=== PATIENT | male | born 1955 | race Caucasian/White ===

== ENCOUNTER → 2018-10-20 10:58 | Outpatient (CLI) | payer MEDICARE, MEDICAID, SELFPAY ==
[2018-10-19 09:56] VITALS: BMI 22.8
== END ==
PROVIDERS: Family Provider Family Medicine; PCP Family Medicine; Referring Provider Internal Medicine Cardiovascular Disease; Visit Provider Internal Medicine Cardiovascular Disease
DX: R03.0 Elevated blood-pressure reading, without diagnosis of hypertension (principal)
CPT/HCPCS: 93788

== ENCOUNTER 2019-01-09 10:55 | Day surgery (SDC) | payer MEDICARE, MEDICAID, SELFPAY ==
[2018-10-19 09:56] VITALS: BMI 22.8
--- NOTE | 2019-01-06 18:43 | HP.PCM_ITS ---
History and Physical Date of Admission: 01/09/19 HISTORY AND PHYSICAL ? Yaritza Henderson 1955 ? REFERRING PHYSICIAN: ??Fredrick Aiken MD ? CHIEF COMPLAINT: ??Clinical Update ? HPI: The patient is a 63 year old male referred for endoscopy.??Patient was previously evaluated on 09/05/18. ?Per my H&P from that date: ? The patient is a 62 year old male referred for endoscopy. ?Yaritza notes no colon complaints. Patient denies any change in bowel habits, weight changes, blood in stools, black tarry stools or abdominal pain.??Denies?family history of colon issues. The patient notes no upper GI complaints. ?Yaritza has not?undergone prior endoscopy. ? ? Patient's past medical history is significant for alcohol abuse-notes he has consumed a 12-pack of beer daily for many years. ?He us a former tobacco user, quit at age 19. ?He has a history of significant hypertension but notes this has been better controlled over the last couple of months, checks this twice a day at home. ?BP was significantly elevated on presentation today which he states is unusual, notes he did take his medication as instructed this morning. ? On chart review, it is noted that patient had an abnormal EKG in January 2018- showed possible left atrial enlargement, and provider note from 02/07/18 also mentions a septal infarct though only the atrial enlargement noted on final EKG report: ? 02/10/2018 ?4:31 PM - Ce, [facility]-In Scanning (Onbase) ? ? ? Results ? NAME : YARITZA HENDERSON PID : [id number] : 1955 Gender : Male Race : ORD : [id number] ?? Procedure Date : Feb 07 2018 14:17:57 Edit Date : Feb 10 2018 16:11:32 ?? Diagnosis:NORMAL SINUS RHYTHM POSSIBLE LEFT ATRIAL ENLARGEMENT ABNORMAL ECG Confirmed by KAI FARIAS D.O. ([id number]) on 02/10/2018 4:11:26 PM ?? Ventricular Rate : 77 ?BPM Atrial Rate : 77 ?BPM P-R Interval : 176 ?ms QRS Duration : 98 ?ms Q-T Interval : 412 ?ms QTC Calculation(Bezet) : 466 ?ms P [place] : 61 ?degrees R [place] : 7 ?degrees T [place] : 62 ?degrees ?? Test Reason : ?? Location : 185 : WO ? Overread By : KAI FARIAS D.O. Edited By : KAI FARIAS D.O. Referred By : SONIA GUIDO Acquired by : [facility], ? The patient was referred to cardiology and had appointment scheduled for 02/17/18 which appears to have been cancelled. 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 ?He was also instructed to see nephrology for proteinuria and was to have a renal ultrasound completed. ?Patient does not believe he has seen a wall taper. ? He denies any chest pain, shortness of breath or recent hospitalizations. ?Denies any problems with sedation in the past. ? Patient has since been evaluated by cardiology. ?Note from Dr. Us from 10/19/18 is reviewed, per Dr. Us no contraindication to colonoscopy planned for December ? Patient presents today to update H&P for endoscopy scheduled 01/09/19.??The patient denies any significant change to his overall health since his last visit. ?His past medical history, past surgical history, medications and allergies are up to date as of this visit. ? ? PAST?MEDICAL?HISTORY PAST MEDICAL HISTORY Diagnosis Date ? Alcohol abuse 04/25/2018 ? Ex-smoker 04/25/2018 ? Started at 7 yo, ?1/2-1 PPD and quit at age 19 ? History of right shoulder fracture ? ? Hypertension, essential 02/07/2018 ? Tibia/fibula fracture ? ? ? PAST?SURGICAL?HISTORY History reviewed. No pertinent surgical history. ? ? CURRENT?MEDICATIONS ? Current Outpatient Medications: lisinopril (ZESTRIL, PRINIVIL) 40 mg tablet Take 1 tablet by mouth twice daily. thiamine (VITAMIN B1) 100 mg tablet Take 1 tablet by mouth once daily. triamterene-hydrochlorothiazide (MAXZIDE) 75-50 mg per tablet Take 1 tablet by mouth once daily. amLODIPine (NORVASC) 2.5 mg tablet Take 1 tablet by mouth once daily. Blood Pressure Monitor kit Take blood pressure daily ?DX: hypertension COMPOUNDED PRESCRIPTION Take blood pressure daily and write it down loratadine (CLARITIN) 10 mg tablet Take 1 tablet by mouth once daily. (Patient not taking: Reported on 12/29/2018 ) ? No current facility-administered medications for this visit.? ? ALLERGIES:?Patient has no known allergies. ? PERSONAL HISTORY:? SOCIAL?HISTORY Social History ??Socioeconomic History ?Marital status: Single ?Spouse name: Not on file ?Number of children: Not on file ?Years of education: Not on file ?Highest education level: Not on file ??Occupational History ?Not on file ??Social Needs ?Financial resource strain: Not on file ?Food insecurity: ?Worry: Not on file ?Inability: Not on file ?Transportation needs: ?Medical: Not on file ?Non-medical: Not on file ??Tobacco Use ?Smoking status: Former Smoker ?Smokeless tobacco: Never Used ?Tobacco comment: quit when he was 19 ??Substance and Sexual Activity ?Alcohol use: Yes ?Alcohol/week: 105.0 standard drinks ?Types: 42 Cans of Beer (12oz) per week ?Comment: 6 pack a day ?Drug use: No ?Sexual activity: Not on file ??Lifestyle ?Physical activity: ?Days per week: Not on file ?Minutes per session: Not on file ?Stress: Not on file ??Relationships ?Social connections: ?Talks on phone: Not on file ?Gets together: Not on file ?Attends advent service: Not on file ?Active member of club or organization: Not on file ?Attends meetings of clubs or organizations: Not on file ?Relationship status: Not on file ?Intimate partner violence: ?Fear of current or ex partner: Not on file ?Emotionally abused: Not on file ?Physically abused: Not on file ?Forced sexual activity: Not on file ??Other Topics ?Concerns: ?Not on file ??Social History Narrative ?Not on file ? FAMILY HISTORY:? FAMILY?HISTORY FAMILY HISTORY Problem Relation Age of Onset ? No Known Problems Mother ? when patient was 8 from accident ? No Known Problems Father ? ? No Known Problems Sister ?unsure of hx ? No Known Problems Brother ?doens't know hx ? No Known Problems Maternal Grandmother ?doesn't know hx ? No Known Problems Maternal Grandfather ?doesn't know hx ? No Known Problems Paternal Grandmother ?doesn't know hx ? No Known Problems Paternal Grandfather ?doesn't know hx ? Alzheimer's Disease No Family History ? ? Colon Cancer No Family History ? ? Prostate Cancer No Family History ? ? Coronary Artery Disease No Family History ? ? Diabetes No Family History ? ? Hypertension No Family History ? ? Hyperlipidemia No Family History ? ? Kidney Disease No Family History ? ? Seizures No Family History ? ? Stroke No Family History ? ? Thyroid No Family History ? ? REVIEW OF SYMPTOMS: ??The review of systems data was entered by the nurse and reviewed by me ? Nursing Notes: Gina Nettles RN ?12/29/2018 10:18 AM ?Signed REVIEW OF SYSTEMS: ?General:???The patient denies fatigue, denies weight loss, denies weight gain, denies feeling hot, and denies feelings of cold. ?Eyes: ?The patient denies glaucoma, denies eye injury/surgery, wears glasses or contacts. ?Ear/Nose/Throat: ?The patient notes allergies, denies hayfever, denies ear infections, and denies bloody noses. ?Cardiovascular: ?The patient denies chest pain, denies heart disease, notes high blood pressure,denies cardiac stent, denies prior heart attack, denies irregular heart beat, denies high cholesterol, ?denies poor circulation, denies heart failure, other cardiac issues, denies claudication, denies cold feet, denies peripheral arterial stent. ?Respiratory: ?The patient denies tuberculosis, denies pneumonia, denies frequent cough, denies pulmonary embolism, denies shortness of breath, and denies coughing up blood. ?Gastrointestinal: ?The patient denies difficulty swallowing, denies acid reflux, denies ulcers, denies vomiting, denies jaundice/hepatitis, denies gallbladder problems, denies black or tarry stools, denies hemorrhoids, denies bleeding from rectum, denies diverticulitis, denies constipation, denies diarrhea, denies loss of stool control, and denies hernias. ?Kidney/Bladder: ?The patient denies kidney stones, denies urine infections, and denies bloody urine. ?Skin: ?The patient denies a history of skin cancer, denies bleeding/changing moles, and denies a history of skin rash. ?Neurologic: ?The patient denies a history of epilepsy/convulsions, denies headaches, denies head/spinal injuries, and denies stroke/TIA. ?Psychiatric: ?The patient denies psychiatric medications, denies depre ssion, and denies voices, denies substance abuse. ?Endocrine: ?The patient denies thyroid disorders, denies diabetes, and denies hormonal problems. ?Hematologic: ?The patient denies a history of bruising, denies bleeding, and denies anemia, denies blood clots. ?Infections: ?The patient notes a history of measles and mumps, denies rheumatic fever, and denies sexually transmitted diseases. ?Musculoskeletal: ?The patient denies back pain/injury, denies back problems, denies sciatica, denies knee/foot trouble, denies arthritis, or denies gout. ? ? When was patient's last Mammogram screening? N/A ? ?Last Colonoscopy: ?never ? Gina Nettles RN I have confirmed and edited as necessary, the PFSH and ROS obtained by others. ? PHYSICAL EXAMINATION: ? General: ?The patient is 63 year old male, well nourished, well hydrated in no acute distress. ?The patient is oriented to time, place, and person. ? VITALS:?Blood pressure 150/80, pulse 82, temperature 36.7 ?C (98.1 ?F), temperature source Temporal Artery, height 185.4 cm (6' 1), weight 77.7 kg (171 lb 6.4 oz), SpO2 98 %.?Body mass index is 22.61 kg/m?.? ? HEENT: ?Normal cephalic, ataumatic, pupils are equally round, sclera are an icteric, mucous membranes are moist, oropharynx is clear. ?Neck has no masses, asymmetry or lymphadenopathy. ? ? Respiratory: ?Clear to auscultation and percussion. ?Normal respiratory excursion and pattern. ? Cardiac: ?Examination is regular rate and rhythm. ?Normal S1/S2 ? Abdominal exam: ?Soft, nontender, ?with no palpable masses. ?No hepatosplenomegaly. ?No palpable hernias. ? Extremities: ?no clubbing, cyanosis or edema. ?No adenopathy. ? LABORATORY VALUES: As Noted ? RADIOLOGIC STUDIES: ?As Noted ? ? Assessment ? IMPRESSION:?encounter for screening colonoscopy, history of alcohol abuse- recommend Monitored Anesthetic Care ? PLAN: ?I have reviewed my findings with the surgeon. ?Proceed with lower endoscopy with MAC as scheduled. ??We discussed the risks and benefits of the planned endoscopy. ?I have informed the patient that complications can occur including failure to complete the endoscopy and perforation. ?The patient had the opportunity to ask questions concerning the planned endoscopy. ?My staff has also explained the procedure to the patient in understandable terms and has given the patient printed material concerning the procedure. ?The patient freely consents to surgery. ? I plan to use?Golytely?bowel preparation ? We will plan for Monitored Anesthetic Care. ? ? Diagnoses:?(Z12.11) Encounter for screening for malignant neoplasm of colon ?(pr imary encounter diagnosis) (F10.11) History of alcohol abuse (I10) Hypertension, essential ? ? Isabel Lindsey PA-C
[2019-01-09 11:14] VITALS: BP 158/91; PULSE 72; RESP 14; TEMP 36.8; O2SAT 100; BMI 21.9
--- NOTE | 2019-01-09 13:33 | OP.ENDO_ITS ---
Patient Name: Faraz Henderson Procedure Date: 01/09/2019 1:05 PM Date of : 1955 Age: 63 Procedure: Colonoscopy Indications: Screening for colorectal malignant neoplasm Providers: Stu Gonzalez MD Referring MD: Stu Gonzalez MD Medicines: Monitored Anesthesia Care Patient Profile: This is a 63 year old male. Refer to note in patient chart for documentation of history and physical. Last Colonoscopy: none. The patient's first colonoscopy is today. Complications: No immediate complications. Procedure: Pre-Anesthesia Assessment: - Prior to the procedure, a History and Physical was performed, and patient medications and allergies were reviewed. The patient is competent. The risks and benefits of the procedure and the sedation options and risks were discussed with the patient. All questions were answered and informed consent was obtained. Patient identification and proposed procedure were verified by the physician, the nurse and the cloud infrastructure architect in the procedure room. Mental Status Examination: alert and oriented. Airway Examination: normal oropharyngeal airway and neck mobility. Respiratory Examination: clear to auscultation. CV Examination: normal. Prophylactic Antibiotics: The patient does not require prophylactic antibiotics. Prior Anticoagulants: The patient has taken no previous anticoagulant or antiplatelet agents. ASA Grade Assessment: III - A patient with severe systemic disease. After reviewing the risks and benefits, the patient was deemed in satisfactory condition to undergo the procedure. The anesthesia plan was to use monitored anesthesia care (MAC). Immediately prior to administration of medications, the patient was re-assessed for adequacy to receive sedatives. The heart rate, respiratory rate, oxygen saturations, blood pressure, adequacy of pulmonary ventilation, and response to care were monitored throughout the procedure. The physical status of the patient was re-assessed after the procedure. After I obtained informed consent, the scope was passed under direct vision. Throughout the procedure, the patient's blood pressure, pulse, and oxygen saturations were monitored continuously. The pediatric colonoscope was introduced through the anus and advanced to the cecum, identified by the appendiceal orifice, ileocecal valve and palpation. The colonoscopy was performed without difficulty. The patient tolerated the procedure well. The quality of the bowel preparation was good. Scope In: 1:18:01 PM Scope Withdrawal Time 0 hours 6 minutes 9 seconds Scope Out: 1:29:32 PM Total Procedure Duration Time 0 hours 11 minutes 31 seconds Findings: The entire examined colon appeared normal on direct and retroflexion views. Impression: - The entire examined colon is normal on direct and retroflexion views. - No specimens collected. Recommendation: - Discharge patient to home. - Resume previous diet. - Continue present medications. - Repeat colonoscopy in 10 years for screening purposes. Stu Gonzalez MD 01/09/2019 1:32:53 PM This report has been signed electronically. Number of Addenda: 0 Note Initiated On: 01/09/2019 1:05 PM
[2019-01-09 13:36] VITALS: BP 145/94; BP 158/91; PULSE 79; RESP 16; TEMP 36.6; O2SAT 93
[2019-01-09 13:41] VITALS: BP 143/89; BP 158/91; PULSE 71; RESP 16; O2SAT 100
[2019-01-09 13:45] VITALS: BP 149/93; BP 158/91; PULSE 71; RESP 16; O2SAT 100
[2019-01-09 13:50] VITALS: BP 150/93; BP 158/91; PULSE 66; RESP 16; TEMP 36.3; O2SAT 100
[2019-01-09 14:10] VITALS: BP 158/91
== END 2019-01-09 14:10 | disposition home or self-care (01) ==
LOC: EN 10:57 → AC 10:58
PROVIDERS: Family Provider Family Medicine; PCP Family Medicine; Referring Provider Surgery; Visit Provider Surgery
PROC: 0DJD8ZZ Inspection of Lower Intestinal Tract, Via Natural or Artificial Opening Endoscopic (ICD-10-PCS; CPT 45378; principal; 2019-01-09 11:55)
DX: Z12.11 Encounter for screening for malignant neoplasm of colon (principal); I10 Essential (primary) hypertension; R01.1 Cardiac murmur, unspecified; F10.10 Alcohol abuse, uncomplicated; Y90.9 Presence of alcohol in blood, level not specified; Z79.899 Other long term (current) drug therapy; Z87.891 Personal history of nicotine dependence
CPT/HCPCS: G0121; J7120; A4216

== ENCOUNTER → 2020-06-21 09:46 | Outpatient (CLI) | payer MEDICARE, MEDICAID, SELFPAY ==
[2020-06-18 09:19] VITALS: BMI 24.4
--- NOTE | 2020-06-21 09:52 | ECHOD_ITS ---
Reason For Study: HTN Procedure This was a 2D Doppler, Color Flow transthoracic echocardiogram. Exam performed in department. Left Ventricle Normal LV size. Left ventricular systolic function is normal. The estimated ejection fraction is 60 %. Stage 1 diastolic dysfunction. No regional wall motion abnormalities noted. Right Ventricle Normal RV size. Normal systolic function. Atria Normal left atrium. Normal right atrium. Mitral Valve Mild focal mitral valve calcification of the anterior leaflet. Mild (1+) eccentric mitral valve insufficiency. Tricuspid Valve Normal tricuspid valve. Mild (1+) tricuspid valve insufficiency. Pulmonary artery systolic pressure is 44 mmHg. Aortic Valve Trisinus/trileaflet aortic valve. Mild focal aortic valve calcification. Pulmonic Valve Normal pulmonic valve. Great Vessels Normal aortic root. The pulmonary artery is normal size. Normal inferior vena cava. Pericardium/Pleural No pericardial effusion. MMode/2D Measurements & Calculations LVIDd: 4.9 cm IVSd: 1.2 cm Ao root diam: 3.3 cm LVIDs: 2.7 cm LVPWd: 0.78 cm RVDd: 3.8 cm FS: 44.7 % LAV(MOD-bp): 51.7 ml LA A4 area: 19.4 cm2 RA A4 area: 17.2 cm2 LAV(MOD-bp) Indexed: 26.0 ml/m2 LAV(MOD-sp2): 48.1 ml LAV(MOD-sp4): 51.1 ml Time Measurements MV dec time: 0.31 sec Doppler Measurements & Calculations MV E max farhan: 68.7 cm/sec Lat Peak E' Farhan: 11.6 cm/sec Med Peak E' Farhan: 10.3 cm/sec MV A max farhan: 80.8 cm/sec E/E' lat: 5.9 E/E' med: 6.7 MV E/A: 0.85 MV V2 max: 85.8 cm/sec MV P1/2t max farhan: 75.9 cm/sec Ao V2 max: 135.1 cm/sec MV max P.9 mmHg MV P1/2t: 87.4 msec Ao max P.3 mmHg MV V2 mean: 48.3 cm/sec MV dec slope: 254.3 cm/sec2 MV mean P.1 mmHg MVA(P1/2t): 2.5 cm2 MV V2 VTI: 24.2 cm LV V1 max: 121.2 cm/sec PA V2 max: 114.5 cm/sec TR max farhan: 315.1 cm/sec LV V1 max P.9 mmHg TR max P.7 mmHg Interpretation Summary Normal LV size. Left ventricular systolic function is normal. The estimated ejection fraction is 60 %. Stage 1 diastolic dysfunction. Mild (1+) eccentric mitral valve insufficiency. Pulmonary artery systolic pressure is 44 mmHg. Ordering Physician: Son Us Referring Physician: Fredrick Aiken Performed By: Williams Khan RCS
== END ==
PROVIDERS: PCP Family Medicine; Referring Provider Internal Medicine Cardiovascular Disease; Visit Provider Internal Medicine Cardiovascular Disease
DX: I10 Essential (primary) hypertension (principal); I34.0 Nonrheumatic mitral (valve) insufficiency
CPT/HCPCS: 93306

== ENCOUNTER 2022-07-06 05:52 | Emergency (ER) | payer MEDICARE, MEDICAID, SELFPAY ==
[2022-07-06 05:53] VITALS: BP 157/92; PULSE 86; RESP 18; TEMP 36.5; O2SAT 99; BMI 25.2
--- NOTE | 2022-07-06 06:10 | RAD_ITS ---
INDICATION: pain EXAMINATION/TECHNIQUE: X-RAY - XR Spine Thoracic 3 Views COMPARISON: None. FINDINGS: Frontal and lateral views of the thoracic spine were obtained. Slight scoliosis. Mild to moderate degenerative changes. No acute fracture of the thoracic spine is identified. Fractures of the cervical spine are described in the CT cervical spine report. RAD/Thoracic Spine 3 Views IMPRESSION: No acute fracture identified in the thoracic spine. Electronically Signed: Elia Palomares MD at 7:48 EST ,
--- NOTE | 2022-07-06 06:10 | CT_ITS ---
EXAM: CT cervical spine. HISTORY: trauma TECHNIQUE: No intravenous contrast. A radiation dose optimization technique was used for this scan. COMPARISON: CT cervical spine November 04, 2013. LIMITATIONS: None. FRACTURES: There is an acute fracture of the spinous process of C4. An acute fracture of the C7 vertebral body is oriented vertically at the midline anteriorly extending posteriorly to the left. A compression fracture of C7 is also identified at the superior endplate with loss of height of less than 25%, likely acute. No retropulsion. Fractures of the C6 and C7 facets on the right may also be acute. Mild subluxation of the facets at C6-7 is associated with the superior tip of the superior facet of C7 interposed into the fracture defect within the inferior facet of C6. SPINAL CANAL: No significant stenosis. DEGENERATIVE CHANGE: Moderate degenerative change. ALIGNMENT: Mild kyphosis centered at C5-6. SOFT TISSUE: Normal. OTHER: None. CONCLUSION: Fractures of the C7 vertebral body. Fractures of the C6 and C7 facets on the right with suspected associated unilateral facet subluxation. Fracture of the spinous process of C4. N.B. : The above Results were Read Back by Elia Palomares MD to Bravo Wesley DO, and understanding confirmed on 07/06/2022 07:41:17 (ET). Electronically Signed: Elia Palomares MD at 7:43 EST , CT/Spine Cervical without Contras IMPRESSION: undefined
--- NOTE | 2022-07-06 06:10 | CT_ITS ---
EXAM: CT brain without IV contrast. HISTORY: head trauma TECHNIQUE: No intravenous contrast. A radiation dose optimization technique was used for this scan. COMPARISON: None. LIMITATIONS: None. BRAIN: Mild involutional change. Moderate low attenuation bilaterally within the deep white matter, likely secondary to chronic microvascular ischemia. VENTRICLES: No hydrocephalus. EXTRA-AXIAL SPACES: No acute hemorrhage. CALVARIUM/SKULL BASE: No acute fracture. Right temporal craniotomy. FACE/SINUSES: Fluid in the left maxillary sinus. Old nasal bone fractures. Old fracture of the medial wall of the left orbit. SOFT TISSUES: Normal. OTHER: None. CONCLUSION: No acute intracranial abnormality. Electronically Signed: Elia Palomares MD at 7:21 EST , CT/Brain/Head without Contrast IMPRESSION: undefined
[2022-07-06 06:25] LABS: Absolute Lymphocyte Count 0.86 X10^3/uL (0.83-4.51); Absolute Neutrophil Count 6.8 X10^3/uL (2.0-7.7); Basophil# 0.03 X10^3/uL; Basophil% 0.3 % (0-1); Eosinophil# 0.05 X10^3/uL; Eosinophils% 0.5 % (0-5); Hematocrit 37.5 % (40-54); Hemoglobin 13.6 g/dL (13.0-16.5); Lymphocyte # 0.86 X10^3/ul (0.83-4.51); Lymphocyte % 9.4 % (19-41); Mean Corp Hgb Conc 36.3 g/dL (32-36); Mean Corpuscular Hgb 32.2 pg (27.0-32.0); Mean Corpuscular Volume 88.9 fL (80-94); Mean Platelet Vol. 7.8 fl (6.2-12.0); Monocyte# 1.35 X10^3/uL; Monocyte% 14.8 % (0-10); NRBC Flagged by Analyzer 0 % (0-5); Neutrophil # 6.78 X10^3/uL (2.7-7.7); Neutrophil % 74.6 % (47-70); Platelet Count 281 K/mm3 (150-450); RBC Distribution Width CV 11.9 % (11.6-14.6); RBC Distribution Width SD 38.5 fl (35.1-43.9); Red Blood Count 4.22 M/mm3 (4.6-6.2); White Blood Count 9.1 K/mm3 (4.4-11.0)
[2022-07-06 06:42] LABS: Anion Gap 9 (5-15); BUN 11 mg/dL (7-18); BUN/Creat Ratio 10.1 RATIO (10-20); CPK Total, Creatine Kinase 624 U/L (39-308); Chloride 88 mmol/L (98-107); Creatinine, Serum 1.09 mg/dL (0.70-1.30); EST Glomerular Filtration Rate 71 mL/min (>60); Est Glom Filt Rate - Afr Amer 86 mL/min (>60); Estimated Creatinine Clearance 66.97 ml/min; Glucose 115 mg/dL (74-106); Potassium 3.7 mmol/L (3.5-5.1); Sodium Level 123 mmol/L (136-145)
[2022-07-06] MEDS: Ondansetron 4 MG/2 ML Vial IV (06:50)
[2022-07-06] MEDS: Morphine 4 MG/ML Syringe IV (06:50)
--- NOTE | 2022-07-06 07:44 | EDS_ITS ---
HPI History of Present Illness Chief Complaint: Back Narrative Narrative: Patient is a 66-year-old male with past medical history of hypertension as well as daily alcohol use and recently diagnosed hyponatremia in May of this year with baseline sodium value of approximate 120. Patient states that on Wednesday he was at home and walking up his stairs when he felt weak and lost his balance and fell. He states he fell approximately 13 steps and that these were wooden steps. He states he hit his head but did not have loss of consciousness and he denies any history of bleeding disorder or blood thinner use. He states secondary to the pain he could not get up and move so he laid on the landing of his staircase until family came over Wednesday after [facility]. At that time they are able to help him up and he was able to ambulate. He states that he has been having pain in his head neck and upper back since the trauma but is not improving with time or [id number] medication and therefore comes in for evaluation. 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 Home Medications lisinopril 40 mg tablet 40 mg PO DAILY 30 days #30 tabs 10/18/18 [History Last Taken 01/09/19 09:00 40 MG] triamterene 75 mg-hydrochlorothiazide 50 mg tablet 1 tab PO DAILY 30 days #30 tabs 10/18/18 [History Last Taken Unknown] amlodipine 10 mg tablet 10 mg PO DAILY 06/18/20 [History Last Taken Unknown] cyanocobalamin (vitamin B-12) 1,000 mcg tablet 1,000 mcg PO DAILY 06/18/20 [History Last Taken Unknown] thiamine HCl (vitamin B1) 100 mg tablet 100 mg PO DAILY 07/06/22 [History Last Taken Unknown] Allergy/AdvReac Type Severity Reaction Status Date / Time No Known Allergies Allergy Verified 07/06/22 05:57 Social History (Updated 06/18/20 @ 09:[address] Son Us MD) Smoking Status: Former smoker quit date: 05/31/74 pack-years: 11 alcohol intake: current alcohol intake frequency: 3 or more drinks per day Alcohol type: beer ROS ROS ED Constitutional Constitutional ED: Denies chills or fever(s) Eyes Eyes: Denies change in vision ENT ENT ED: Denies sore throat Cardiovascular Cardiovascular: Denies chest pain Respiratory/Chest Respiratory/Chest: Denies cough or dyspnea Gastrointestinal Gastrointestinal: Denies abdominal pain, diarrhea, nausea or vomiting Genitourinary Genitourinary ED: Denies dysuria or hematuria Musculoskeletal Musculoskeletal: Reports back pain and neck pain Integumentary Reports Abrasions Neurologic Neurologic: Denies headache(s) or paresthesias Hematologic/Lymphatic Hematologic/Lymphatic: Denies easy bleeding or easy bruising EXAM Physical Exam Const Vital Signs: 07/06/22 05:53 Temperature 97.7 F L Temperature Source Temporal Pulse Rate 86 Respiratory Rate 18 Blood Pressure 157/92 H Blood Pressure Mean 113 Pulse Ox 99 Oxygen Delivery Method Room Air Positive well nourished and well developed General Appearance ED: well developed HEENT Reports dry mucous membranes HEENT Narrative: Patient has small amount of soft tissue swelling with superficial abrasion along the left posterior parietal and occipital portion of the scalp. There are no signs of depressed or basilar skull fracture. No septal hematoma Mouth ED: Yes dry mucous membranes Mouth: dry mucous membranes Eyes PERRL and EOMs intact bilaterally Eyes Narrative: No hyphema Neck Neck Narrative: No bony deformity or step-off of the cervical spine the patient does have midline pain over top the neck around C5-C7. Chest Wall palpation of chest normal Chest Narrative: No bony deformity or crepitance of the chest wall Resp normal respiratory effort and clear to auscultation bilaterally Cardio regular rate and regular rhythm Rate: other Other Details: Radial pulses are plus 2 out of 4 bilaterally are equal and symmetric GI normal to inspection, nondistended, normoactive bowel sounds, non-tender, non- distended and no masses GI Narrative: No voluntary guarding or rigidity no pulsatile mass. No abrasions or ecchymosis noted Auscultation: normoactive bowel sounds Palpation: soft Back/Spine Back/Spine Narrative: There is mild pain with palpation along the upper thoracic midline vertebrae numbers 4-7. However there is no bony deformity or step-offs. No pain on palpation along the midline lumbar spine also no bony deformity or step-offs. Extremity normal to inspection Extremity Narrative: Pelvis is stable there is no shortening or external rotation of either lower extremity. No pain with palpation in the inguinal region. Bilateral arms and legs are neurovascular intact. Patient has full active range of motion of all extremities. Patient does have superficial abrasion with ecchymosis along the right elbow over top the olecranon and the left proximal forearm. There is also mild soft tissue swelling ecchymosis over top of the second MCP joint. However there is no obvious bony deformities or joint effusions. Neuro oriented x3, CN's II-XII intact bilaterally and no sensory deficits noted Sensorium / Orientation: alert Motor Exam: strength 5/5 throughout Psych mental status grossly normal Skin Skin Narrative: Areas of soft tissue abrasion and ecchymosis as documented above MDM MDM MDM Narrative Medical decision making narrative: Patient presented to the ER 2 days after reported mechanical fall. He is not on blood thinners nor does he have a history of bleeding disorder. On exam he does have signs of superficial abrasions along the scalp and forearms consistent with the fall but has no obvious bony deformities or joint effusions or deficit. With her report of mechanical fall I do not feel there is need for a cardiac or syncope work-up but as he reported laying on the ground for approximate 24 hours there was concern for rhabdomyolysis so basic blood work with CPK were obtained. I also felt the need to check his sodium as he reports a recent diagnosis of hyponatremia. His sodium is low at 123 but chart review reveals his baseline over the past month has been approximately 120 so therefore this is not deranged from his recent work-ups. The CPK level is only mildly elevated and not above thousand therefore he does not have rhabdomyolysis. The imaging studies showed no signs of acute head trauma but it did note C6 and C7 fractures consistent with his physical exam which are unstable. Secondary to this he needs to be transferred to a trauma center with neurosurgery. Patient and family request [facility] for therefore they were contacted and do agree to accept the patient. Patient was placed in a c-collar secondary to his report of neck pain and fall and therefore the fracture is stabilized at this time. After discussing the case with [facility] they do wish he have a chest x-ray as well as lumbar spine x-ray and abdominal and pelvis CT secondary to the report of falling 13 steps. Therefore these were added as requested to complete the trauma evaluation. At this time patient is hemodynamically stable and he is neurologically intact and as the trauma happened on Wednesday he can be transfe rred to [facility] by ALS and we do not need to activate [facility] at this time. Lab Data Attestation: I reviewed the patient's lab results. Labs: Laboratory Results - last 24 hr 07/06/22 07/06/22 06:18 06:18 WBC 9.1 RBC 4.22 L Hgb 13.6 Hct 37.5 L MCV 88.9 MCH 32.2 H MCHC 36.3 H RDW Std Deviation 38.5 RDW Coeff of Oksana 11.9 Plt Count 281 MPV 7.8 Immature Gran % (Auto) 0.400 Neut % (Auto) 74.6 H Lymph % (Auto) 9.4 L [place] % (Auto) 14.8 H Eos % (Auto) 0.5 Baso % (Auto) 0.3 Absolute Neuts (auto) 6.8 Absolute Lymphs (auto) 0.86 Nucleated RBC % 0 Sodium 123 L Potassium 3.7 Chloride 88 L Carbon Dioxide 26.0 Anion Gap 9 BUN 11 Creatinine 1.09 Estim Creat Clear Calc 66.97 Est GFR (MDRD) Af Amer 86 Est GFR (MDRD) Non-Af 71 BUN/Creatinine Ratio 10.1 Glucose 115 H Calcium 9.0 Total Creatine Kinase 624 H Radiography Diagnostic Testing: Clinical Impression(s) from Imaging Studies Brain CT 07/06/22 06:10 IMPRESSION: undefined Cervical Spine CT 07/06/22 06:10 IMPRESSION: undefined ADDENDUM: 07/06/22 0750 IMPRESSION: undefined Thoracic Spine X-Ray 07/06/22 06:10 IMPRESSION: No acute fracture identified in the thoracic spine. Electronically Signed: Elia Palomares MD at 7:48 EST , X-ray of the thoracic spine as interpreted by the emergency medicine physician reveals no acute fracture or spondylolisthesis X-ray of the lumbar spine as interpreted by the emergency medicine physician also reveals no acute fracture or spinal thesis 1 view chest x-ray as interpreted by the emergency medicine physician reveals no acute rib fracture infiltrate or pneumothorax Discharge Plan Triage Chief Complaint: Back ED Provider: Bravo Wesley Dx/Rx/DC Orders Clinical Impression: Closed cervical spine fracture, Hyponatremia, Closed head injury, Accidental fall, Hypertension Prescriptions: No Action triamterene-hydrochlorothiazid 75-50 mg tablet 1 tab PO DAILY 30 Days Qty: 30 Label Comments: TAKE 1 TABLET EVERY DAY lisinopril 40 mg tablet 40 mg PO DAILY 30 Days Qty: 30 Label Comments: Take 1 tablet by mouth twice daily. amlodipine 10 mg tablet 10 mg PO DAILY Label Comments: Take 1 tablet by mouth once daily. cyanocobalamin (vitamin B-12) 1,000 mcg tablet 1,000 mcg PO DAILY Label Comments: Take 1 tablet by mouth once daily. thiamine HCl (vitamin B1) 100 mg tablet 100 mg PO DAILY Label Comments: Take 1 tablet by mouth once daily. Primary Care Provider: Fredrick Aiken Referrals: Fredrick Aiken MD [Primary Care Provider] - Disposition Disposition: Acute Care Hospital Discharge Location: [facility]
--- NOTE | 2022-07-06 07:53 | RAD_ITS ---
STUDY: X-RAY - LUMBAR SPINE REASON FOR EXAM: Male, 66 years old. History of fall. TECHNIQUE: 2 view(s) of the lumbar spine were obtained. COMPARISON: None FINDINGS: Normal lumbar lordosis. There is no substantial scoliosis. There is a normal alignment of the vertebrae. There is multilevel endplate spondylosis of the lumbar vertebrae. There is multi-level degenerative disc disease with multi-level disc space narrowing. Contrast is seen within the bilateral renal collecting systems in keeping with recent IV contrast injection. RAD/Lumbar Spine 2 or 3 Views IMPRESSION: Degenerative changes of the spine, as detailed above. Electronically Signed: Ubaldo Ga MD at 9:18 EST ,
--- NOTE | 2022-07-06 07:53 | RAD_ITS ---
STUDY: X-RAY CHEST REASON FOR EXAM: Male, 66 years old. Chest pain due to a fall. TECHNIQUE: Single AP portable view of the chest. COMPARISON: None. FINDINGS: Hyperinflation. Calcified granulomas. There is no demonstrated pleural abnormality. Normal size heart. Calcified bilateral hilar lymph nodes worse on the right side. There is prominence of the pulmonary hilar arteries without peripheral pulmonary vascular congestion, suggesting pulmonary hypertension. There is atherosclerotic tortuosity of the aortic arch and descending thoracic aorta. There are diffuse degenerative changes of the visualized thoracic spine. Healed right rib fractures. There is no demonstrated abnormality of the visualized soft tissue structures of the upper abdomen. RAD/Chest 1 View (Portable) IMPRESSION: Hyperinflation. No acute abnormality is seen. Electronically Signed: Ubaldo Ga MD at 9:16 EST ,
--- NOTE | 2022-07-06 07:56 | CT_ITS ---
STUDY: CT ABDOMEN AND PELVIS WITH CONTRAST REASON FOR EXAM: Male, 66 years old. Abdominal pain. RADIATION DOSAGE (If Supplied By Facility): CTDIvol = ( 13.71 ) mGy, DLP = ( 879.20 ) mGycm TECHNIQUE: Transaxial images were obtained from the dome of the diaphragm to the symphysis pubis without oral contrast. IV 100mL Isovue-370 was administered. Sagittal and coronal images were reconstructed. Individualized dose optimization techniques were used for this CT. COMPARISON: None. FINDINGS: Mild increased markings at the lung bases suggestive of left basilar atelectasis. The visualized portions of the heart are within normal limits. Normal liver. Normal gallbladder and extrahepatic biliary system. Normal spleen. Normal pancreas. Normal bilateral adrenal glands. Normal right kidney. Normal left kidney. Increased markings in the mesenteric fat at the level of the root of the mesentery. Small lymph nodes are seen within it. This is a nonspecific finding. Early pancreatitis should be ruled out. There is a small hiatal hernia. There is evidence of a 2.9 cm x 3.5 cm diverticulum in the second portion of the duodenum. Normal small intestine. Normal colon. The appendix is visualized and appears normal. There is scattered atherosclerotic calcification of the abdominal aorta, without a demonstrated aneurysm. Normal inferior vena cava. Normal retroperitoneum. There is a distended urinary bladder. Mild degree of diffuse bilateral wall thickening. The prostate measures 6 cm x 3.3 cm. This causes indentation at the bladder base. There is evidence of a calcification of the vas deferens There is a small umbilical hernia containing fat. Small bilateral inguinal hernias containing fat. There are diffuse degenerative changes of the visualized lumbar spine. CT/Abdomen/Pelvis W IV Cont ONLY IMPRESSION: Nonspecific increased markings in the root of the mesentery as described. Early pancreatitis should BE ruled out. Duodenal diverticulum. Electronically Signed: Ubaldo Ga MD at 9:45 EST ,
[2022-07-06 08:40] VITALS: BP 159/84; PULSE 90; RESP 16; O2SAT 99
== END 2022-07-06 08:38 | disposition short-term general hospital (02) ==
PROVIDERS: Emergency Provider Emergency Medicine; PCP Family Medicine; Visit Provider Emergency Medicine
DX: S12.500A Unspecified displaced fracture of sixth cervical vertebra, initial encounter for closed fracture (principal); S12.600A Unspecified displaced fracture of seventh cervical vertebra, initial encounter for closed fracture; E87.1 Hypo-osmolality and hyponatremia; S09.90XA Unspecified injury of head, initial encounter; I10 Essential (primary) hypertension; Z79.899 Other long term (current) drug therapy; W10.9XXA Fall (on) (from) unspecified stairs and steps, initial encounter; Z87.891 Personal history of nicotine dependence
CPT/HCPCS: 70450; 71045; 72072; 72100; 72125; 74177; 80048; 82550; 85025; 96374; 96375; 99284; J7030; Q9967; A4216; J2405

== ENCOUNTER 2025-01-20 09:40 | Emergency (ER) | payer MEDICARE, MEDICAID, SELFPAY ==
[2025-01-20 09:41] VITALS: BP 116/87; PULSE 84; RESP 18; TEMP 37.2; O2SAT 100; BMI 23.0
--- NOTE | 2025-01-20 10:08 | EX.ED.DYSGE1 ---
HPI History of Present Illness Chief Complaint: General Illness Informant: patient Narrative Narrative: 69-year-old male states he was sent in because his sodium was abnormal when it was drawn a day or 2 ago. He states it was a routine 6-month checkup and he was having labs done routinely. He has been and is now asymptomatic. No medication changes, he takes medications for high blood pressure. He states he is an alcohol user, used to drink heavily, but he had a fall down the steps remotely, and so he significantly decrease his usage to about two 24 ounce beers per day. He has not had any yet this morning. He does not feel shaky or have withdrawal symptoms in the mornings. He denies any problems urinating. 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 Alcohol abuse Essential (primary) hypertension Home Medications ?Medication ?Instructions ?Recorded ?Last Taken ?Type lisinopril 40 mg tablet 40 mg PO DAILY 30 days #30 tabs 10/18/18 01/09/19 09:00 History 40 MG amlodipine 10 mg tablet 10 mg PO DAILY 06/18/20 Unknown History cyanocobalamin (vitamin B-12) 1,000 mcg PO DAILY 06/18/20 Unknown History 1,000 mcg tablet thiamine HCl (vitamin B1) 100 mg 100 mg PO DAILY 07/06/22 Unknown History tablet Allergy/AdvReac Type Severity Reaction Status Date / Time No Known Allergies Allergy Verified 07/06/22 05:57 Social History Smoking Status: Former smoker quit date: 05/31/74 pack-years: 11 alcohol intake: current alcohol intake frequency: 3 or more drinks per day Alcohol type: beer ROS ROS ED Constitutional Constitutional ED: Denies chills or fever(s) Eyes Eyes: Denies change in vision or diplopia ENT ENT ED: Denies rhinorrhea or sore throat Cardiovascular Cardiovascular: Denies chest pain or palpitations Respiratory/Chest Respiratory/Chest: Denies cough or dyspnea Gastrointestinal Gastrointestinal: Denies abdominal pain, diarrhea, nausea or vomiting Genitourinary Genitourinary ED: Denies dysuria or hematuria Musculoskeletal Musculoskeletal: Denies back pain or neck pain Integumentary Denies abscess or rash Neurologic Neurologic: Denies headache(s), paresthesias or weakness Psychiatric Psychiatric: Denies anxiety or suicidal thoughts EXAM Physical Exam Const Vital Signs: 01/20/25 09:41 01/20/25 10:04 01/20/25 10:59 Temperature 98.9 F Temperature Source Oral Pulse Rate 84 70 Respiratory Rate 18 14 Respiratory Effort Normal Non-Labored Respiratory Pattern Normal Blood Pressure 116/87 H 137/88 H Blood Pressure Mean 96 104 Pulse Ox 100 100 Oxygen Delivery Method Room Air Room Air Positive well nourished and well developed General Appearance ED: well developed and NAD HEENT Reports moist mucous membranes normocephalic and atraumatic Eyes PERRL and EOMs intact bilaterally Neck full ROM and supple Resp normal respiratory effort and clear to auscultation bilaterally Cardio regular rate, regular rhythm and no murmurs GI non-tender and non-distended Auscultation: normoactive bowel sounds Palpation: soft Back/Spine no CVA tenderness General Back: other FROM Extremity normal to inspection General Extremety ED: Negative for edema, pulses abnormal or tenderness General Extremity: Negative for edema or pulses abnormal Neuro oriented x3, CN's II-XII intact bilaterally and no sensory deficits noted Sensorium / Orientation: awake and alert Motor Exam: strength 5/5 throughout Skin no rashes or lesions noted and no wounds MDM MDM MDM Narrative Medical decision making narrative: Repeated the patient's labs while we started some slow saline over the next couple hours. His sodium was 127 before we gave him the saline. He is asymptomatic does not have weakness or confusion. His alcohol and his HCTZ I suspect are both contributing to his hyponatremia. At this level and without symptoms he does not require admission at this time. I am having him discontinue the triamterene/HCTZ, and follow-up with his doctor as an outpatient. Also encouraged to try to curb his alcohol use possible. Lab Data Attestation: I reviewed the patient's lab results. Labs: Laboratory Results - last 24 hr 01/20/25 10:23 WBC 10.3 RBC 4.88 Hgb 15.6 Hct 43.9 MCV 90.0 MCH 32.0 MCHC 35.5 RDW Std Deviation 40.0 RDW Coeff of Oksana 12.1 Plt Count 273 MPV 7.5 Immature Gran % (Auto) 0.500 Neut % (Auto) 73.2 H Lymph % (Auto) 13.7 L [place] % (Auto) 11.2 H Eos % (Auto) 0.8 Baso % (Auto) 0.6 Absolute Neuts (auto) 7.5 Absolute Lymphs (auto) 1.41 Nucleated RBC % 0 Sodium 127 L Potassium 4.0 Chloride 90 L Carbon Dioxide 22.8 Anion Gap 15 BUN 15 Creatinine 1.12 Estim Creat Clear Calc 62.25 Est GFR (MDRD) Non-Af 70 BUN/Creatinine Ratio 13.8 Glucose 102 H Calcium 9.2 Discharge Plan Triage Chief Complaint: General Illness ED Provider: Chai Frye Dx/Rx/DC Orders Clinical Impression: Hyponatremia Instructions: ED Hyponatremia Prescriptions: Continued lisinopril 40 mg tablet 40 mg PO DAILY 30 Days Qty: 30 Patient Comments: Take 1 tablet by mouth twice daily. amlodipine 10 mg tablet 10 mg PO DAILY Patient Comments: Take 1 tablet by mouth once daily. cyanocobalamin (vitamin B-12) 1,000 mcg tablet 1,000 mcg PO DAILY Patient Comments: Take 1 tablet by mouth once daily. thiamine HCl (vitamin B1) 100 mg tablet 100 mg PO DAILY Patient Comments: Take 1 tablet by mouth once daily. Discontinued triamterene-hydrochlorothiazid 75-50 mg tablet 1 tab PO DAILY 30 Days Qty: 30 Patient Comments: TAKE 1 TABLET EVERY DAY Primary Care Provider: Fredrick Aiken Referrals: Fredrick Aiken MD [Primary Care Provider] - 3-5 Days Print Language: Frisian Disposition Disposition: Home, Self Care
[2025-01-20] MEDS: 0.9% Normal Saline (1000mL) 1,000 ML 150 ML IV (10:22)
[2025-01-20 10:30] LABS: Hematocrit 43.9 % (40-54); Hemoglobin 15.6 g/dL (13.0-16.5); Immature Granulocytes Count 0.050 X10^3/uL (0.0-0.0); Mean Corp Hgb Conc 35.5 g/dL (32-36); Mean Corpuscular Volume 90.0 fL (80-94); Mean Platelet Vol. 7.5 fl (6.2-12.0); NRBC Flagged by Analyzer 0 % (0-5); Platelet Count 273 K/mm3 (150-450); RBC Distribution Width CV 12.1 % (11.6-14.6); RBC Distribution Width SD 40.0 fl (35.1-43.9); Red Blood Count 4.88 M/mm3 (4.6-6.2); White Blood Count 10.3 K/mm3 (4.4-11.0)
--- OUTSIDE RECORDS SUMMARY | 2025-01-20 10:42 | XMS RPT_ITS | CCD ---
Author Organization [facility] Care Team Providers Care Barge Loader Name Role Phone Fredrick Feliciano MD Primary Care Provider [phone] Fredrick Feliciano MD Primary Care Provider [phone] Kodak Hurst PA-C Unavailable Fredrick Feliciano MD Unavailable [phone] Hussain PT, Amie Unavailable [phone] Fredrick Feliciano Primary Care Unavailable Bravo Wesley Attending Unavailable Eliz Garvin Attending Unavailable Braden, Fredrick Primary Care Unavailable LEAH BLAIR Referring Unavailable BRADEN, FREDRICK A Primary Care Unavailable DAVID BOYKIN Admitting Unavailabl GATO English Attending Unavailable IVANIA ESTRADA Consulting Unavailable BRADEN, FREDRICK A Primary Care Unavailable LEAH BLAIR Attending Unavailable LEAH BLAIR Referring Unavailable BRADEN, FREDRICK A Primary Care Unavailable LEAH BLAIR Referring Unavailable BRADEN, FREDRICK A Primary Care Unavailable LEAH BLAIR Attending Unavailable BRADEN, FREDRICK A Referring Unavailable BRADEN, FREDRICK A Primary Care Unavailable JOSE, IVANIA Referring Unavailable BRADEN, FREDRICK A Primary Care Unavailable BRADEN, FREDRICK A Primary Care Unavailable JOSE, IVANIA Referring Unavailable LEAH BLAIR Referring Unavailable BRADEN, FREDRICK A Primary Care Unavailable IVANIA ESTRADA Attending Unavailable Fredrick Feliciano MD Primary Care Provider [phone] Fredirck Feliciano MD Unavailable Alessandra STORY TELLER.Марина GENAO Unavailable Erum Castaneda PA-C Unavailable Alessandra HAINES.Марина GENAO Unavailable Erum Castaneda PA-C Unavailable ERUM CASTANEDA Referring Unavailable FREDRICK FELICIANO Primary Care Unavailable ERUM CASTANEDA Referring Unavailable FREDRICK FELICIANO Primary Care Unavailable ERUM CASTANEDA Attending Unavailable FREDRICK FELICIANO Primary Care Unavailable ERUM CASTANEDA Attending Unavailable FREDRICK FELICIANO Primary Care Unavailable ERUM CASTANEDA Referring Unavailable FREDRICK FELICIANO Primary Care Unavailable ERUM CASTANEDA Attending Unavailable FREDRICK FELICIANO Primary Care Unavailable ERUM CASTANEDA Referring Unavailable FREDRICK FELICIANO Primary Care Unavailable ERUM CASTANEDA Referring Unavailable FREDRICK FELICIANO Primary Care Unavailable Medications Current Medications Medication Drug Class(es) Dates Sig (Normalized) Sig (Original) acetaminophen 500 mg oral tablet (20 sources) Start: 07-17-2022 take 2 tablets by mouth every eight hours as needed for pain acetaminophen (TYLENOL EXTRA STRENGTH) 500 mg tablet Indications: Closed fracture of spinous process of cervical vertebra, subsequent encounter , Closed fracture of first thoracic vertebra with routine healing, unspecified fracture morphology, subsequent encounter Take 2 tablets by mouth every 8 hours as needed for pain (for pain.). 90 tablet 07/17/2022 Active Start: 07-08-2022 take 3 tablets by mo [facility] every six hours as needed acetaminophen (TYLENOL) 325 mg tablet Take 3 tablets by mouth every 6 hours as needed for pain. 07/08/2022 Active Comment on above: Take 3 tablets by mo uth every 6 hours as needed for pain. Take 2 tablets by mo ut every 8 hours as needed for pain (for pain.). amLODIPine 5 mg oral tablet (20 sources) Dihydropyridine Calcium Channel Glenys Start: take 1 tablet by mouth once daily amLODIPine (NORVASC) 5 mg tablet Take 1 tablet by mouth once daily. 30 tablet 5 01/18/2025 Active Start: 11-25-2022 End: 01-18-2025 take 1 tablet by mouth once daily amLODIPine (NORVASC) 10 mg tablet Take 1 tablet by mouth once daily. 30 tablet 5 11/06/2024 01/18/2025 Discontinued (Adjust Sig - Block E-Cancel) Start: 05-22-2022 take 1 tablet by dale th once daily amLODIPine (NORVASC) 10 mg tablet Take 1 tablet by mouth once daily. 30 tablet 5 05/22/2022 Active Start: 11-19-2021 take 1 tablet by dale th once daily amLODIPine (NORVASC) 10 mg tablet Take 1 tablet by mouth once daily. 30 tablet 5 11/19/2021 Active Comment on above: Take 1 tablet by dale th once daily. Blood Pressure Monitor kit (20 sources) Start: 02-08-2018 Blood Pressure Monitor kit Take blood pressure daily DX: hypertension 1 Kit 02/08/2018 Active Start: 02-08-2018 Blood Pressure Monitor kit Take blood pressure daily DX: hypertension 1 Kit 0 02/08/2018 Active Comment on above: Take blood pressure daily DX: hypertension COMPOUNDED PRESCRIPTION (20 sources) Start: 02-07-2018 COMPOUNDED PRESCRIPTION Indications: Hypertension, essential Take blood pressure daily and write it down 1 Device 02/07/2018 Active Start: 02-07-2018 COMPOUNDED PRE SCRIPTION Indications: Hypertension, essential Take blood pressure daily and write it down 1 Device 0 02/07/2018 Active Comment on above: Take blood pressure daily and write it down folic acid 0.4 mg oral tablet (20 sources) Start: 12-23-2022 End: 05-02-2024 take 1 tablet by mouth once daily folic acid 400 mcg tablet Take 1 tablet by mouth once daily. 30 tablet 5 05/02/2024 Active Comment on above: Take 1 tablet by dale th once daily. lisinopril 40 mg oral tablet (20 sources) Angiotensin Converting Enzyme Inhibitor Start: 01-18-2025 take 0.5 tablet by mouth once daily lisinopril (ZESTRIL) 40 mg tablet Indications: Hypertension, essential Take 0.5 tablets by mouth once daily. 30 tablet 5 01/18/2025 Active Start: 06-26-2024 End: 01-18-2025 take 1 tablet by mouth once daily lisinopril (ZESTRIL) 40 mg tablet Indications: Hypertension, essential Take 1 tablet by mouth once daily. 30 tablet 5 06/26/2024 01/18/2025 Discontinued (Adjust Sig - Block E-Cancel) Start: 11-25-2022 End: 06-26-2024 take 1 tablet by mouth twice daily lisinopril (ZESTRIL) 40 mg tablet Indications: Hypertension, essential Take 1 tablet by mouth two times a day. 60 tablet 5 05/02/2024 06/26/2024 Discontinued Start: 05-22-2022 take 1 tablet by dale th twice daily lisinopril (ZESTRIL, PRINIVIL) 40 mg tablet Indications: Hypertension, essential Take 1 tablet by mouth twice daily. 60 tablet 5 05/22/2022 Active Start: 11-19-2021 take 1 tablet by dale th twice daily lisinopril (ZESTRIL, PRINIVIL) 40 mg tablet Indications: Hypertension, essential Take 1 tablet by mouth twice daily. 60 tablet 5 11/19/2021 Active Comment on above: Take 1 tablet by dale th twice daily. Take 1 tablet by dale th two times a day. thiamine 50 mg oral tablet (20 sources) Start: 12-23-2022 End: 10-05-2024 take 1 tablet by mouth once daily thiamine (VITAMIN B1) 50 mg tablet Take 1 tablet by mouth once daily. 30 tablet 11 10/06/2024 Active Start: 08-13-2021 End: 12-23-2022 take 1 tablet by mouth once daily thiamine (VITAMIN B1) 100 mg tablet Indications: Alcohol abuse Take 1 tablet by mouth once daily. 30 tablet 5 06/03/2022 12/23/2022 Discontinued Comment on above: Take 1 tablet by dale th once daily. vitamin b12 0.5 mg oral tablet (20 sources) Vitamin B12 Start: 02-07-2024 End: 10-05-2024 take 1 tablet by mouth once daily cyanocobalamin (VITAMIN B-12) 500 mcg tablet Take 1 tablet by mouth once daily. 30 tablet 11 10/06/2024 Active Start: 11-25-2022 End: 02-07-2024 cyanocobalamin (VITAMIN B-12 ) 1,000 mcg tab Take 1 tablet by mouth every other afternoon. 0 12/30/2023 Active Start: 05-22-2022 take 1 tablet by dale th once daily cyanocobalamin (VITAMIN B-12) 1,000 mcg tab Take 1 tablet by mouth once daily. 30 tablet 5 05/22/2022 Active Start: 11-19-2021 take 1 tablet by dale th once daily cyanocobalamin (VITAMIN B-12) 1,000 mcg tab Take 1 tablet by mouth once daily. 30 tablet 5 11/19/2021 Active Comment on above: Take 1 tablet by dale th once daily. Completed/Discontinued Medications Medication Drug Class(es) Dates Sig (Normalized) Sig (Original) cyclobenzaprine hydrochloride 10 mg oral tablet (6 sources) Muscle Relaxant Start: 04-03-2023 End: 12-27-2023 take 1 tablet by mouth every eight hours as needed cyclobenzaprine (FLEXERIL) 10 mg tablet Take 1 tablet by mouth three times a day as needed for muscle spasm. 21 tablet 04/03/2023 12/27/2023 Discontinued Comment on above: Take 1 tablet by dale th three times a day as needed for muscle spasm. hydroCHLOROthiazide 25 mg / triamterene 37.5 mg oral tablet (20 sources) Potassium-spar ing Diuretic, Thiazide Diuretic Start: 05-28-2022 take 1 tablet by mouth once daily triamterene-hydroCHL OROthiazide (MAXZIDE-25) 37.5-25 mg per tablet Take 1 tablet by mouth once daily. 0 05/31/2022 Active Start: 11-19-2021 take 1 tablet by mouth once daily triamterene-hydroCHLOROthiazide (MAXZIDE ) 75-50 mg per tablet Take 1 tablet by mouth once daily. 30 tablet 5 11/19/2021 Active Comment on above: Take 1 tablet by dale th once daily. 1 tablet in the morn ing Orally Once a day 30 days methylPREDNISolone (2 sources) Corticosteroid Start: 04-03-2023 End: 04-09-2023 methylPREDNISolone (MEDROL, MAYKEL,) 4 mg Dose-Pack Follow dosing instructions, take with food. 21 tablet 04/03/2023 04/09/2023 Start: 04-03-2023 End: 04-09-2023 methylPREDNISolone (MEDROL, MAYKEL,) 4 mg Dose-Pack Follow dosing instructions, take with food. 21 tablet 0 04/03/2023 04/09/2023 Active Comment on above: Follow dosing instru ctions, take with food. oxyCODONE hydrochloride 5 mg oral tablet (5 sources) Opioid Agonist Start: End: take 1 tablet by mouth every eight hours as needed for pain oxyCODONE IR (ROXICODONE) 5 mg immediate release tablet Indications: Closed nondisplaced fracture of seventh cervical vertebra, unspecified fracture morphology, initial encounter ([facility]) Take 1 tablet by mouth every 8 hours as needed for pain for up to 5 days. 15 tablet 0 07/08/2022 07/13/2022 Comment on above: Take 1 tablet by dale every 8 hours as needed for pain for up to 5 days. sodium chloride 1000 mg oral tablet (5 sources) Start: End: take 2 tablets by mouth three times daily sodium chloride 1 gram tab Take 2 tablets by mouth three times daily for 5 days. 30 tablet 0 07/08/2022 07/13/2022 Comment on above: Take 2 tablets by mo [facility] three times daily for 5 days. spironolactone 25 mg oral tablet (14 sources) Aldosterone Antagonist Start: End: take 1 tablet by mouth once daily spironolactone (ALDACTONE) 25 mg tablet Take 25 mg by mouth once daily. 09/01/2022 12/27/2023 Discontinued Comment on above: Take 25 mg by mouth once daily. tiZANidine 4 mg oral tablet (11 sources) Central alpha-2 Adrenergic Agonist Start: take 1 tablet by mouth every eight hours as needed tiZANidine (ZANAFLEX) 4 mg tablet Indications: Closed fracture of spinous process of cervical vertebra, subsequent encounter , Closed fracture of first thoracic vertebra with routine healing, unspecified fracture morphology, subsequent encounter Take 1 tablet by mouth every 8 hours as needed. 60 tablet 0 07/17/2022 Active Comment on above: Take 1 tablet by dale every 8 hours as needed. Problems Active Problems Problem Classification Problem Date Documented Da te Episodic/Chronic Alcohol-related disorders (20 sources) Alcohol abuse; Translations: [Alcohol abuse, uncomplicated] Onset: 04-25-2018 11-11-2020 Chronic E Codes: Fall (20 sources) Fall from steps ; Translations: [Fall (on) (from) other stairs and steps, initial encounter] Onset: 07-06-2022 07-08-2022 Episodic Essential hypertension (20 sources) Essential hypertension; Translations: [Essential (primary) hypertension] Onset: 02-07-2018 08-01-2019 Chronic Hyperplasia of prostate (20 sources) Benign prostatic hyperplasia; Translations: [Benign prostatic hyperplasia without lower urinary tract symptoms] Onset: 08-01-2019 08-01-2019 Chronic Neoplasms of unspecified nature or uncertain behavior (1 source) Skin lesion; Translations: [Neoplasm of unspecified behavior of bone, soft tissue, and skin] 12-27-2023 Episodic Other circulatory disease (1 source) Abnormal peripheral pulse; Translations: [Other specified symptoms and signs involving the circulatory and respiratory systems] 12-31-2022 Episodic Other circulatory disease (3 sources) Orthostatic hypotension; Translations: [Orthostatic hypotension] 06-26-2024 Episodic Other circulatory disease (1 source) Orthostatic hypotension; Translations: [Orthostatic hypotension] Onset: 01-18-2025 Episodic Other diseases of kidney and ureters (2 sources) Renal impairment; Translations: [Disorder of kidney and ureter, unspecified] Episodic Other fractures (2 sources) Compression fracture of thoracic spine; Translations: [Wedge compression fracture of first thoracic vertebra, sequela] Episodic Other fractures (1 source) Closed fracture of cervical spine; Translations: [Fracture of neck, unspecified, initial encounter] Episodic Other fractures (1 source) Closed fracture of fourth cervical vertebra; Translations: [Unspecified displaced fracture of fourth cervical vertebra, subsequent encounter for fracture with routine healing] Episodic Other hematologic conditions (1 source) Increased serum protein level; Translations: [Abnormality of plasma protein, unspecified] Episodic Other injuries and conditions due to external causes (1 source) History of fall; Translations: [History of falling] Episodic Other injuries and conditions due to external causes (1 source) Unspecified injury of head, initial encounter; Translations: [Unspecified injury of head, initial encounter] Onset: 07-15-2022 Episodic Other lower respiratory disease (3 sources) Rib pain; Translations: [Pleurodynia] 01-18-2025 Episodic Other lower respiratory disease (1 source) Pleurodynia; Translations: [Rib pain] Onset: 01-18-2025 Episodic Peripheral and visceral atherosclerosis (20 sources) Peripheral vascular disease; Translations: [Peripheral vascular disease, unspecified] Onset: 01-01-2023 01-01-2023 Chronic Residual codes; unclassified (1 source) Bilateral lower limb edema; Translations: [Localized edema] 12-31-2022 Episodic Superficial injury; contusion (1 source) Contusion of right elbow; Translations: [Contusion of right elbow, initial encounter] 01-18-2025 Episodic Past or Other Problems Problem Classification Problem Date Documented Da te Episodic/Chronic Administrative/social admission (20 sources) Advance directive discussed with patient; Translations: [Other specified counseling] Onset: 11-19-2021 11-19-2021 Episodic Deficiency and other anemia (20 sources) Anemia; Translations: [Anemia, unspecified] Onset: 08-01-2019 08-01-2019 Episodic Deficiency and other anemia (1 source) Anemia, unspecified; Translations: [Anemia, unspecified type] Onset: 08-01-2019 Episodic E Codes: Fall (1 source) Fall 01-18-2025 Fluid and electrolyte disorders (20 sources) Hyponatremia; Translations: [Hypo-osmolality and hyponatremia] Onset: 06-08-2022 Episodic Genitourinary symptoms and ill-defined conditions (19 sources) Proteinuria; Translations: [Proteinuria, unspecified] Onset: 04-25-2018 Resolved: 11-19-2021 11-19-2021 Episodic Joint disorders and dislocations; trauma-related (20 sources) Subluxation of joint of cervical spine; Translations: [Subluxation of C6/C7 cervical vertebrae, initial encounter] Onset: 07-06-2022 Resolved: 12-16-2022 07-08-2022 Episodic Nutritional deficiencies (20 sources) Folic acid deficiency; Translations: [Deficiency of other specified B group vitamins] Onset: 12-23-2022 12-23-2022 Episodic Other fractures (20 sources) Closed fracture of seventh cervical vertebra; Translations: [Unspecified displaced fracture of seventh cervical vertebra, subsequent encounter for fracture with routine healing] Onset: 07-06-2022 Resolved: 12-16-2022 Episodic Other fractures (20 sources) Closed fracture cervical vertebra, spinous process; Translations: [Fracture of neck, unspecified, initial encounter] Onset: 07-06-2022 Resolved: 12-16-2022 07-08-2022 Episodic Other fractures (20 sources) Closed fracture of first thoracic vertebra; Translations: [Unspecified fracture of first thoracic vertebra, subsequent encounter for fracture with routine healing] Onset: 07-17-2022 Resolved: 12-16-2022 Episodic Other fractures (1 source) Unspecified displaced fracture of seventh cervical vertebra, subsequent encounter for fracture with routine healing; Translations: [Closed displaced fracture of seventh cervical vertebra with routine healing, unspecified fracture morphology, subsequent encounter] Onset: 07-08-2022 Episodic Other fractures (1 source) Unspecified fracture of first thoracic vertebra, subsequent encounter for fracture with routine healing; Translations: [Closed fracture of first thoracic vertebra with routine healing, unspecified fracture morphology, subsequent encounter] Onset: 07-17-2022 Episodic Other fractures (1 source) Fracture of neck, unspecified, subsequent encounter; Translations: [Closed fracture of spinous process of cervical vertebra, subsequent encounter] Onset: 07-08-2022 Episodic Other fractures (1 source) Wedge compression fracture of first thoracic vertebra, sequela; Translations: [Compression fracture of T1 vertebra, sequela] Onset: 07-17-2022 Episodic Other fractures (1 source) Unspecified nondisplaced fracture of seventh cervical vertebra, initial encounter for closed fracture; Translations: [Closed nondisplaced fracture of seventh cervical vertebra, unspecified fracture morphology, initial encounter (HCC)] Onset: 07-06-2022 Episodic Other liver diseases (20 sources) Alkaline phosphatase raised; Translations: [Abnormal levels of other serum enzymes] Onset: 06-16-2021 Episodic Other liver diseases (1 source) Abnormal levels of other serum enzymes; Translations: [Alkaline phosphatase elevation] Onset: 07-04-2024 Episodic Other male genital disorders (20 sources) Disorder of prostate; Translations: [Disorder of prostate, unspecified] Onset: 08-01-2019 08-01-2019 Episodic Other male genital disorders (1 source) Disorder of prostate, unspecified; Translations: [Prostate disorder] Onset: 08-01-2019 Episodic Other screening for suspected conditions (not mental disorders or infectious disease) (20 sources) Other specified abnormal findings of blood chemistry; Translations: [Other abnormal blood chemistry] Onset: 04-25-2018 04-25-2018 Episodic Screening and history of mental health and substance abuse codes (20 sources) Ex-smoker; Translations: [Personal history of nicotine dependence] Onset: 04-25-2018 06-04-2021 Episodic Spondylosis; intervertebral disc disorders; other back problems (20 sources) Spinal stenosis in cervical region; Translations: [Spinal stenosis, cervical region] Onset: 07-17-2022 Episodic Results Test Name Value Interpretation Reference Range Facility CBC W Auto Differential pane l (Bld)on 01-18-2025 Basophils (Bld) [#/Vol] 0.07 10*3/uL [facility] Basophils/100 WBC (Bld) 0.6 % [facility] Differential cell count method Nom (Bld) Auto [facility] Eosinophils (Bld) [#/Vol] 0.10 10*3/uL [facility] Eosinophils/100 WBC (Bld) 0.8 % [facility] Erythrocyte distribution width (RBC) [Ratio] 12.9 % 11.5 - 15.0 % [facility] Hematocrit (Bld) [Volume fraction] 44.9 % 39.0 - 51.0 % [facility] Hemoglobin (Bld) [Mass/Vol] 15.2 g/dL 13.0 - 17.0 g/dL [facility] Immature granulocytes (Bld) [#/Vol] 0.06 10*3/uL [facility] Immature granulocytes/100 WBC (Bld) 0.5 % [facility] Interpretation and review of laboratory results Abnormal [facility] Lymphocytes (Bld) [#/Vol] 1.77 10*3/uL [facility] Lymphocytes/100 WBC (Bld) 14.6 % [facility] MCH (RBC) [Entitic mass] 31.6 pg 26.0 - 34.0 pg [facility] MCHC (RBC) [Mass/Vol] 33.9 g/dL 30.5 - 36.0 g/dL [facility] MCV (RBC) [Entitic vol] 93.3 fL 80.0 - 100.0 fL [facility] Monocytes (Bld) [#/Vol] 1.30 10*3/uL High [facility] Monocytes/100 WBC (Bld) 10.7 % [facility] Neutrophils (Bld) [#/Vol] 8.81 10*3/uL High [facility] Neutrophils/100 WBC (Bld) 72.8 % [facility] Nucleated RBC (Bld) [#/Vol] [facility] Nucleated RBC/100 WBC (Bld) [Ratio] 0.0 % /100 WBC [facility] Platelet mean volume (Bld) [Entitic vol] 8.1 fL Low 9.0 - 12.7 fL [facility] Platelets (Bld) [#/Vol] 302 10*3/uL [facility] RBC (Bld) [#/Vol] 4.81 10*6/uL 4.20 - 6.0 0 m/uL [facility] WBC (Bld) [#/Vol] 12.11 10*3/uL High [facility] Basophils (Bld) [#/Vol] 0.07 10*3/uL Normal <0.11 [facility] Comment on above: Order Comment: Speci men Type: BLOOD SPECIMENOrdering Facility: [facility] Address: [address] [place] [address] Performed By: #### 5 7021-8 ####[facility] [id number] [place] [address] [place] Basophils/100 WBC (Bld) 0.6 % Normal [facility] Comment on above: Order Comment: Speci men Type: BLOOD SPECIMENOrdering Facility: [facility] Address: [address] [place] [address] Performed By: #### 5 7021-8 ####[facility] [id number] [place] [address] [place] Differential cell count method Nom (Bld) Auto Normal [facility] Comment on above: Order Comment: Speci men Type: BLOOD SPECIMENOrdering Facility: [facility] Address: [address] [place] [address] Performed By: #### 5 7021-8 ####[facility] [id number] [place] [address] [place] Eosinophils (Bld) [#/Vol] 0.10 10*3/uL Normal <0.46 [facility] Comment on above: Order Comment: Speci men Type: BLOOD SPECIMENOrdering Facility: [facility] Address: [address] [place] [address] Performed By: #### 5 7021-8 ####[facility] [id number] [place] [address] [place] Eosinophils/100 WBC (Bld) 0.8 % Normal [facility] Comment on above: Order Comment: Speci men Type: BLOOD SPECIMENOrdering Facility: [facility] Address: [address] [place] [address] Performed By: #### 5 7021-8 ####[facility] [id number] [place] [address] [place] Erythrocyte distribution width (RBC) [Ratio] 12.9 % Normal 11.5-15.0 [facility] Comment on above: Order Comment: Speci men Type: BLOOD SPECIMENOrdering Facility: [facility] Address: [address] [place] [address] Performed By: #### 5 7021-8 ####[facility] [id number] [place] [address] [place] Hematocrit (Bld) [Volume fraction] 44.9 % Normal 39.0-51.0 [facility] Comment on above: Order Comment: Speci men Type: BLOOD SPECIMENOrdering Facility: [facility] Address: [address] [place] [address] Performed By: #### 5 7021-8 ####[facility] [id number] [place] [address] [place] Hemoglobin (Bld) [Mass/Vol] 15.2 g/dL Normal 13.0-17.0 [facility] Comment on above: Order Comment: Speci men Type: BLOOD SPECIMENOrdering Facility: [facility] Address: [address] [place] [address] Performed By: #### 5 7021-8 ####[facility] [id number] [place] [address] [place] Immature granulocytes (Bld) [#/Vol] 0.06 10*3/uL Normal <0.10 [facility] Comment on above: Order Comment: Speci men Type: BLOOD SPECIMENOrdering Facility: [facility] Address: [address] [place] [address] Performed By: #### 5 7021-8 ####[facility] [id number] [place] [address] [place] Immature granulocytes/100 WBC (Bld) 0.5 % Normal [facility] Comment on above: Order Comment: Speci men Type: BLOOD SPECIMENOrdering Facility: [facility] [place] Address: [address] [place] [address] Performed By: #### 5 7021-8 ####[facility] LABCLIA [id number] [place] [address] [place] Lymphocytes (Bld) [#/Vol] 1.77 10*3/uL Normal 1.00-4.00 [facility] Comment on above: Order Comment: Speci men Type: BLOOD SPECIMENOrdering Facility: [facility] Address: [address] [place] [address] Performed By: #### 5 7021-8 ####[facility]CL[facility] [id number] [place] [address] [place] Lymphocytes/100 WBC (Bld) 14.6 % Normal [facility] Comment on above: Order Comment: Speci men Type: BLOOD SPECIMENOrdering Facility: [facility] Address: [address] [place] [address] Performed By: #### 5 7021-8 ####[facility]CL[facility] [id number] [place] [id number] [place] MCH (RBC) [Entitic mass] 31.6 pg Normal 26.0-34.0 [facility] Comment on above: Order Comment: Speci men Type: BLOOD SPECIMENOrdering Facility: [facility] Address: [address] [place] [address] Performed By: #### 5 7021-8 ####[facility]CL[facility] [id number] [address] [address] [place] MCHC (RBC) [Mass/Vol] 33.9 g/dL Normal 30.5-36.0 [facility] Comment on above: Order Comment: Speci men Type: BLOOD SPECIMENOrdering Facility: [facility] Address: [address] [place] [address] Performed By: #### 5 7021-8 ####[facility] LABIA [id number] [address], [place] [address] [place] MCV (RBC) [Entitic vol] 93.3 fL Normal 80.0-100.0 [facility] Comment on above: Order Comment: Speci men Type: BLOOD SPECIMENOrdering Facility: [facility] Address: [address] [place] [address] Performed By: #### 5 7021-8 ####[facility] LABIA [id number] [place] [address] [place] Monocytes (Bld) [#/Vol] 1.30 10*3/uL High <0.87 [facility] Comment on above: Order Comment: Speci men Type: BLOOD SPECIMENOrdering Facility: [facility] Address: [address] [place] [address] Performed By: #### 5 7021-8 ####[facility] LABIA [id number] [address], [place] [address] [place] Monocytes/100 WBC (Bld) 10.7 % Normal [facility] Comment on above: Order Comment: Speci men Type: BLOOD SPECIMENOrdering Facility: [facility] Address: [address] [place] [address] Performed By: #### 5 7021-8 ####[facility]CLIA [id number] [address], [facility] [place] Neutrophils (Bld) [#/Vol] 8.81 10*3/uL High 1.45-7.50 [facility] Comment on above: Order Comment: Speci men Type: BLOOD SPECIMENOrdering Facility: [facility] Address: [address] [place] [address] Performed By: #### 5 7021-8 ####[facility]CL[facility] [id number] [place] [address] [place] Neutrophils/100 WBC (Bld) 72.8 % Normal [facility] Comment on above: Order Comment: Speci men Type: BLOOD SPECIMENOrdering Facility: [facility] Address: [address] [place] [address] Performed By: #### 5 7021-8 ####[facility]CL[facility] [id number] [place] [address] [place] Nucleated RBC (Bld) [#/Vol] 10*3/uL Normal <0.01 [facility] Comment on above: Order Comment: Speci men Type: BLOOD SPECIMENOrdering Facility: [facility] Address: [address] [place] [address] Performed By: #### 5 7021-8 ####[facility]CL[facility] [id number] [place] [address] [place] Nucleated RBC/100 WBC (Bld) [Ratio] 0.0 /100 WBC Normal [facility] Comment on above: Order Comment: Speci men Type: BLOOD SPECIMENOrdering Facility: [facility] Address: [address] [place] [address] Performed By: #### 5 7021-8 ####[facility]CL[facility] [id number] [place] [id number] [place] Platelet mean volume (Bld) [Entitic vol] 8.1 fL Low 9.0-12.7 [facility] Comment on above: Order Comment: Speci men Type: BLOOD SPECIMENOrdering Facility: [facility] Address: [address] [place] [address] Performed By: #### 5 7021-8 ####[facility]CL[facility] [id number] [place] [address] [place] Platelets (Bld) [#/Vol] 302 10*3/uL Normal 150-400 [facility] Comment on above: Order Comment: Speci men Type: BLOOD SPECIMENOrdering Facility: [facility] Address: [address] [place] [address] Performed By: #### 5 7021-8 ####[facility] [id number] [place] [address] [place] RBC (Bld) [#/Vol] 4.81 10*6/uL Normal 4.20-6.00 [facility] Comment on above: Order Comment: Speci men Type: BLOOD SPECIMENOrdering Facility: [facility] Address: [address] [place] [address] Performed By: #### 5 7021-8 ####[facility] [id number] [place] [address] [place] WBC (Bld) [#/Vol] 12.11 10*3/uL High 3.70-11.00 [facility] Comment on above: Order Comment: Speci men Type: BLOOD SPECIMENOrdering Facility: [facility] Address: [address] [place] [address] Performed By: #### 5 7021-8 ####[facility] [id number] [place] [address] [place] CNOVon 01-18-2025 CNOV Office Visit (FAMPWS ) YARITZA HENDERSON ([id number]) 1955 Date Time Provider Department 01/18/25 9:40 AM ERUM CASTANEDA During your visit today, we recorded the following information about you: Temperature Pulse Respiration Blood pressure 97.2 degrees 80/minute 16/minute 83/56 Weight Height 72.6 kg 1.77 m Erum Castaneda PA-C 01/18/2025 10:45 AM Signed Chief Complaint Patient presents with: Dizziness: Patient states has had lightheadedness x 1 month. Pt report that he fell 01/14 in his apartment. Having right rib pain HPI Yaritza Henderson is a 69 year old male who presents here today for Above Complaints.. Patient was scheduled for medicare wellness however had recent fall and has had some lightheadedness. Lightheadedness: - Recurrent lightheadedness over the past month. - Intermittent home BP monitoring; unable to determine abnormalities. - Recent BP adjustments made in May or July. - Initial office BP readin/56 mmHg. Fall: - Recent fall on 01/14, attributed to lightheadedness. - No recollection of tripping; denies LOC. - Landed on right side, resulting in abrasions to elbows and rib pain. - No head trauma. - Elbow abrasions cleaned with peroxide; minimal pain reported. - Rib pain localized to the right side, with a bruise noted by son-in-law. - Denies abdominal pain, bloating, shoulder pain, or hip pain. Past medical history, appointments, medications, allergies reviewed. Previous Medical History PAST MEDICAL HISTORY Diagnosis Date Advance directive discussed with patient 11/19/2021 Discussed 10/2021 Alcohol abuse 04/25/2018 Alcohol abuse 04/25/2018 12 pck per day since around 2014 (maybe longer) Benign prostatic hyperplasia without lower urinary tract symptoms 08/01/2019 Closed displaced fracture of seventh cervical vertebra with routine healing 07/06/2022 Closed fracture of first thoracic vertebra with routine healing 07/17/2022 Closed fracture of spinous process of cervical vertebra (HCC) 07/06/2022 Elevated alkaline phosphatase level 06/16/2021 Alcoholic liver disease Elevated LFTs 04/25/2018 Ex-smoker 04/25/2018 Started at 7 yo, 1/2-1 PPD and quit at age 19 Ex-smoker 04/25/2018 Started at 7 yo, 1/2-1 PPD and quit at age 19 Fatty liver, alcoholic 05/08/2018 History of right shoulder fracture Hypertension, essential 02/07/2018 Hyponatremia 06/08/2022 Seeing nephrology- Dr. Garvin Medicare annual wellness visit, subsequent 08/01/2019 :Medicare Part B: 09/28/2018 Last done: 08/01/2019 PVD (peripheral vascular disease) 01/01/2023 LLE, CT 12/2022 Spinal stenosis in cervical region 07/17/2022 Subluxation of c6/C7 cervical vertebrae, initial encounter 07/06/2022 Tibia/fibula fracture Previous Surgical History PAST SURGICAL HISTORY Procedure Laterality Date 2D ECHO (EXEP) 06/21/2020 EF=60%, mild menchaca dysf, 1+ [place] COLONOSCOPY 01/09/2019 Dr. Gonzalez, repeat 10 yrs REMV CATARACT EXTRACAP,INSERT LENS Bilateral Summer/fall of 2021 Family History FAMILY HISTORY Problem Relation Age of Onset No Known Problems Mother when patient was 8 from accident No Known Problems Father No Known Problems Sister unsure of hx No Known Problems Brother doens't know hx No Known Problems Maternal Grandmother doesn't know hx No Known Problems Maternal Grandfather doesn't know hx No Known Problems Paternal Grandmother doesn't know hx No Known Problems Paternal Grandfather doesn't know hx Alzheimer's Disease No Family History Colon Cancer No Family History Prostate Cancer No Family History Coronary Artery Disease No Family History Diabetes No Family History Hypertension No Family History Hyperlipidemia No Family History Kidney Disease No Family History Seizures No Family History Stroke No Family History Thyroid No Family History Patient Allergies ALLERGIES No Known Allergies Current Medications Current Outpatient Medications on File Prior to Visit Medication Sig amLODIPine (NORVASC) 10 mg tablet Take 1 tablet by mouth once daily. cyanocobalamin (VITAMIN B-12) 500 mcg tablet Take 1 tablet by mouth once daily. thiamine (VITAMIN B1) 50 mg tablet Take 1 tablet by mouth once daily. lisinopril (ZESTRIL) 40 mg tablet Take 1 tablet by mouth once daily. folic acid 400 mcg tablet Take 1 tablet by mouth once daily. acetaminophen (TYLENOL EXTRA STRENGTH) 500 mg tablet Take 2 tablets by mouth every 8 hours as needed for pain (for pain.). Blood Pressure Monitor kit Take blood pressure daily DX: hypertension acetaminophen (TYLENOL) 325 mg tablet Take 3 tablets by mouth every 6 hours as needed for pain. (Patient not taking: Reported on 07/10/2024) COMPOUNDED PRESCRIPTION Take blood pressure daily and write it down No current facility-administered medications on file prior to visit. Social History SOCIAL HISTORY[1] Review of S (more content not included)... Normal [facility] Cobalamin (Vitamin B12) [Mas s/Vol]on 01-18-2025 Interpretation and review of laboratory results Abnormal [facility] Comprehensive metabolic 2000 panelon 01-18-2025 Albumin [Mass/Vol] 3.8 g/dL Low 3.9 - 4.9 g/dL [facility] ALP [Catalytic activity/Vol] 200 U/L High 38 - 113 U/L [facility] ALT [Catalytic activity/Vol] 6 U/L Low 10 - 54 U/L [facility] Anion gap [Moles/Vol] 17 mmol/L High 8 - 15 mmol/L [facility] AST [Catalytic activity/Vol] 14 U/L 14 - 40 U/L [facility] Bilirubin [Mass/Vol] 1.3 mg/dL 0.2 - 1.3 mg/dL [facility] Calcium [Mass/Vol] 9.3 mg/dL 8.5 - 10. 2 mg/dL [facility] Chloride [Moles/Vol] 91 mmol/L Low 98 - 107 mmol/L [facility] CO2 [Moles/Vol] 20 mmol/L Low 22 - 30 mmol/L [facility] Creatinine [Mass/Vol] 1.35 mg/dL High 0.73 - 1.22 mg/dL [facility] GFR/1.73 sq M.predicted among non-blacks MDRD (S/P/Bld) [Vol rate/Area] 56 mL/min/{1.73_m2} Low - PINF [facility] Comment on above: Estimated Glomerular Filtration Rate (eGFR) is calculated using the 2020 CKD-EPI creatinine equation. This equation utilizes serum creatinine, sex, and age as parameters. The creatinine assay has traceable calibration to isotope dilution-mass spectrometry. Refer to KDIGO guidelines for clinical interpretation. In patients with unstable renal function, e.g. those with acute kidney injury, the eGFR may not accurately reflect actual GFR. Glucose [Mass/Vol] 84 mg/dL 74 - 99 mg/dL [facility] Comment on above: The [place] Diab[employer] s Association (ADA) provides guidance for cutoff values for fasting glucose and random glucose. The ADA defines fasting as no caloric intake for at least 8 hours. Fasting plasma glucose results between 100 to 125 mg/dL indicate increased risk for diabetes (prediabetes). Fasting plasma glucose results greater than or equal to 126 mg/dL meet the criteria for diagnosis of diabetes. In the absence of unequivocal hyperglycemia, results should be confirmed by repeat testing. In a patient with classic symptoms of hyperglycemia or hyperglycemic crisis, random plasma glucose results greater than or equal to 200 mg/dL meet the criteria for diagnosis of diabetes. Reference: Standards of Medical Care in Diabetes 2016, [place] Diabetes Association. Diabetes Care. 2016.39(Suppl 1). Interpretation and review of laboratory results Abnormal [facility] Potassium [Moles/Vol] 4.4 mmol/L 3.7 - 5.1 mmol/L [facility] Protein [Mass/Vol] 7.5 g/dL 6.3 - 8.0 g/dL [facility] Sodium [Moles/Vol] 128 mmol/L Low 136 - 144 mmol/L [facility] Urea nitrogen [Mass/Vol] 19 mg/dL 9 - 24 mg/dL [facility] Albumin [Mass/Vol] 3.8 g/dL Low 3.9-4.9 [facility] Comment on above: Order Comment: Speci men Type: BLOOD SPECIMENOrdering Facility: [facility] Address: [address] [place] [address] Performed By: #### 2 4323-8, LIPNF, 2132-01, 2283-12 ####[facility] LABCLIA [id number] [place] [address] [place] ALP [Catalytic activity/Vol] 200 U/L High 38-113 [facility] Comment on above: Order Comment: Speci men Type: BLOOD SPECIMENOrdering Facility: [facility] Address: [address] [place] [address] Performed By: #### 2 4323-8, LIPNF, 2132-01, 2283-12 ####[facility] LABCLIA [id number] [address] [address] [place] ALT [Catalytic activity/Vol] 6 U/L Low 10-54 [facility] Comment on above: Order Comment: Speci men Type: BLOOD SPECIMENOrdering Facility: [facility] Address: [address] [place] [address] Performed By: #### 2 4323-8, LIPNF, 2132-01, 2283-12 ####[facility]CL[facility] [id number] [address] [place] [address] [place] Anion gap [Moles/Vol] 17 mmol/L High 8-15 [facility] Comment on above: Order Comment: Speci men Type: BLOOD SPECIMENOrdering Facility: [facility] Address: [address] [place], [place] [address] Performed By: #### 2 4323-8, LIPNF, 2132-01, 2283-12 ####[facility]CLIA [id number] [address] [address] [place] AST [Catalytic activity/Vol] 14 U/L Normal 14-40 [facility] Comment on above: Order Comment: Speci men Type: BLOOD SPECIMENOrdering Facility: [facility] Address: [address] [place] [address] Performed By: #### 2 4323-8, LIPNF, 2132-01, 2283-12 ####[facility]CLIA [id number] [address] [place] [address] [place] Bilirubin [Mass/Vol] 1.3 mg/dL Normal 0.2-1.3 [facility] Comment on above: Order Comment: Speci men Type: BLOOD SPECIMENOrdering Facility: [facility] Address: [address] [place] [address] Performed By: #### 2 4323-8, LIPNF, 2132-01, 2283-12 ####[facility]CL[facility] [id number] [address] [place] [address] [place] Calcium [Mass/Vol] 9.3 mg/dL Normal 8.5-10.2 [facility] Comment on above: Order Comment: Speci men Type: BLOOD SPECIMENOrdering Facility: [facility] Address: [address] [place] [address] Performed By: #### 2 4323-8, LIPNF, 2132-01, 2283-12 ####[facility]CL[facility] [id number] [address] [address] [place] Chloride [Moles/Vol] 91 mmol/L Low 98-107 [facility] Comment on above: Order Comment: Speci men Type: BLOOD SPECIMENOrdering Facility: [facility] Address: [address] [place] [address] Performed By: #### 2 4323-8, LIPNF, 2132-01, 2283-12 ####[facility]CL[facility] [id number] [place] [address] [place] CO2 [Moles/Vol] 20 mmol/L Low 22-30 [facility] Comment on above: Order Comment: Speci men Type: BLOOD SPECIMENOrdering Facility: [facility] Address: [address] [place] [address] Performed By: #### 2 4323-8, LIPNF, 2132-01, 2283-12 ####[facility]CL[facility] [id number] [address] [address] [place] Creatinine [Mass/Vol] 1.35 mg/dL High 0.73-1.22 [facility] Comment on above: Order Comment: Speci men Type: BLOOD SPECIMENOrdering Facility: [facility] Address: [address] [place] [address] Performed By: #### 2 4323-8, LIPNF, 2132-01, 2283-12 ####[facility]CL[facility] [id number] [address] [address] [place] eGFRcr SerPlBld CKD-EPI 2021 56 mL/min/1.73m??? Low >=60 [facility] Comment on above: Order Comment: Speci men Type: BLOOD SPECIMENOrdering Facility: [facility] Address: [address] [place] [address] Result Comment: Stormy mated Glomerular Filtration Rate (eGFR) is calculated using the 2020 CKD-EPI creatinine equation. This equation utilizes serum creatinine, sex, and age as parameters. The creatinine assay has traceable calibration to isotope dilution-mass spectrometry. Refer to KDIGO guidelines for clinical interpretation. In patients with unstable renal function, e.g. those with acute kidney injury, the eGFR may not accurately reflect actual GFR. Performed By: #### 2 4323-8, LIPNF, 2132-01, 2283-12 ####[facility]CL[facility] [id number] [place] [address] [place] Glucose [Mass/Vol] 84 mg/dL Normal 74-99 [facility] Comment on above: Order Comment: Charlene dewitt Type: BLOOD SPECIMENOrdering Facility: [facility] Address: [address] [place] [address] Result Comment: The [place] Diabetes Association (ADA) provides guidance for cutoff values for fasting glucose and random glucose. The ADA defines fasting as no caloric intake for at least 8 hours. Fasting plasma glucose results between 100 to 125 mg/dL indicate increased risk for diabetes (prediabetes). Fasting plasma glucose results greater than or equal to 126 mg/dL meet the criteria for diagnosis of diabetes. In the absence of unequivocal hyperglycemia, results should be confirmed by repeat testing. In a patient with classic symptoms of hyperglycemia or hyperglycemic crisis, random plasma glucose results greater than or equal to 200 mg/dL meet the criteria for diagnosis of diabetes. Reference: Standards of Medical Care in Diabetes 2016, [place] Diabetes [employer]. Diabetes Care. 2016.39(Suppl 1). Performed By: #### 2 4323-8, LIPNF, 2132-01, 2283-12 ####[facility]CL[facility] [id number] [place] [id number] [place] Potassium [Moles/Vol] 4.4 mmol/L Normal 3.7-5.1 [facility] Comment on above: Order Comment: Charlene dewitt Type: BLOOD SPECIMENOrdering Facility: [facility] Address: [address] [place] [address] Performed By: #### 2 4323-8, LIPNF, 2132-01, 2283-12 ####[facility]CL[facility] [id number] [place] [address] [place] Protein [Mass/Vol] 7.5 g/dL Normal 6.3-8.0 [facility] Comment on above: Order Comment: Speci men Type: BLOOD SPECIMENOrdering Facility: [facility] Address: [address] [place] [address] Performed By: #### 2 4323-8, LIPNF, 2132-01, 2283-12 ####[facility]CL[facility] [id number] [place] [address] [place] Sodium [Moles/Vol] 128 mmol/L Low 136-144 [facility] Comment on above: Order Comment: Speci men Type: BLOOD SPECIMENOrdering Facility: [facility] Address: [address] [place] [address] Performed By: #### 2 4323-8, LIPNF, 2132-01, 2283-12 ####[facility]CL[facility] [id number] [place] [address] [place] Urea nitrogen [Mass/Vol] 19 mg/dL Normal 9-24 [facility] Comment on above: Order Comment: Speci men Type: BLOOD SPECIMENOrdering Facility: [facility] Address: [address] [place] [address] Performed By: #### 2 4323-8, LIPNF, 2132-01, 2283-12 ####[facility] LABIA [id number] [address] [address] [place] FOLATE, SERUMon 01-18-2025 Folate [Mass/Vol] 11.2 ng/mL 4.7 - PINF ng/mL [facility] Folate SerPl-mCncon 01-19-20 Folate [Mass/Vol] 11.2 ng/mL Normal >4.7 [facility] Comment on above: Order Comment: Speci men Type: BLOOD SPECIMENOrdering Facility: [facility] Address: [address] [place] [address] Performed By: #### 2 4323-8, LIPNF, 2132-9, 2284-8 ####[facility]CL[facility] [id number] [facility] [place] [address] [place] Folate [Mass/Vol]on 01-19-20 Interpretation and review of laboratory results Normal [facility] LIPID PANEL, NONFASTINGon Cholesterol [Mass/Vol] 99 mg/dL NINF - 200 mg/dL [facility] Comment on above: <200 mg/dL, Desirabl e 200-239 mg/dL, Borderline high >239 mg/dL, High HDL Cholesterol, Nonfasting 47 mg/dL 39 - PINF mg/dL [facility] Comment on above: 40-59 mg/dL, Accepta ble >59 mg/dL, High: Negative risk factor for coronary heart disease <40 mg/dL, Low: Positive risk factor for coronary heart disease Interpretation and review of laboratory results Normal [facility] LDL Cholesterol Calculated, Nonfasting 36 mg/dL NINF - 100 mg/dL [facility] Comment on above: <100 mg/dL, Optimal 100-129 mg/dL, Near optimal/above optimal 130-159 mg/dL, Borderline high 160-189 mg/dL, High >189 mg/dL, Very high Secondary prevention optimal LDL Cholesterol levels are recommended to be <70 mg/dL LDL cholesterol is calculated using the Valdez-NIH equation. LDL/HDL Ratio, Nonfasting 0.77 mg/dL NINF - 2.54 mg/dL [facility] Comment on above: Reference: 1. National Cholesterol Education Program ATP III Guideline At-A-Glance Quick Desk Reference: National Heart, Lung, and Blood [place]. National Institutes of Health. 2001: NIH Publication No. 01-3305. 2. An International Atherosclerosis Society position paper: global recommendations for the management of dyslipidemia: executive summary, Atherosclerosis. 2014: 232(2):410-413. Non HDL Cholesterol, Nonfasting 52 mg/dL NINF - 130 mg/dL [facility] Comment on above: <130 mg/dL, Optimal 130-159 mg/dL, Near optimal/above optimal 160-189 mg/dL, Borderline high 190-219 mg/dL, High >219 mg/dL, Very high Secondary prevention optimal non HDL Cholesterol levels are recommended to be <100 mg/dL Total Chol/HDL Ratio, Nonfasting 2.11 mg/dL NINF - 5.10 mg/dL [facility] Triglycerides, Nonfasting 81 mg/dL NINF - 150 mg/dL [facility] Comment on above: <150 mg/dL, Normal 150-199 mg/dL, Borderline high 200-499 mg/dL, High >499 mg/dL, Very high VLDL Cholesterol, Nonfasting 11 mg/dL NINF - 30 mg/dL [facility] Cholesterol [Mass/Vol] 99 mg/dL Normal <200 [facility] Comment on above: Order Comment: Speci men Type: BLOOD SPECIMENOrdering Facility: [facility] Address: [address] [place] [address] Result Comment: <200 mg/dL, Desirable 200-239 mg/dL, Borderline high >239 mg/dL, High Performed By: #### 2 4323-8, LIPNF, 2132-01, 2283-12 ####[facility] LABCLIA [id number] [place] [address] [place] HDL CHOLESTEROL, NF 47 mg/dL Normal >39 [facility] Comment on above: Order Comment: Speci men Type: BLOOD SPECIMENOrdering Facility: [facility] Address: [address] [place] [address] Result Comment: 40-5 9 mg/dL, Acceptable >59 mg/dL, High: Negative risk factor for coronary heart disease <40 mg/dL, Low: Positive risk factor for coronary heart disease Performed By: #### 2 4323-8, LIPNF, 2132-01, 2283-12 ####[facility] LABCLIA [id number] [place] [address] [place] LDL CHOLESTEROL CALCULATED, NF 36 mg/dL Normal <100 [facility] Comment on above: Order Comment: Speci men Type: BLOOD SPECIMENOrdering Facility: [facility] Address: [address] [place] [address] Result Comment: <100 mg/dL, Optimal 100-129 mg/dL, Near optimal/above optimal 130-159 mg/dL, Borderline high 160-189 mg/dL, High >189 mg/dL, Very high Secondary prevention optimal LDL Cholesterol levels are recommended to be <70 mg/dL LDL cholesterol is calculated using the Valdez-NIH equation. Performed By: #### 2 4323-8, LIPNF, 2132-01, 2283-12 ####[facility] LABCLIA [id number] [address] [place] LDL/HDL RATIO, NF 0.77 mg/dL Normal <2.54 [facility] Comment on above: Order Comment: Charlene men Type: BLOOD SPECIMENOrdering Facility: [facility] Address: [address] [place] [address] Result Comment: Refe briace: 1. National Cholesterol Education Program ATP III Guideline At-A-Glance Quick Desk Reference: National Heart, Lung, and Blood [place]. National Institutes of Health. 2001: NIH Publication No. 01-3305. 2. An International Atherosclerosis Society position paper: global recommendations for the management of dyslipidemia: executive summary, Atherosclerosis. 2014: 232(2):410-413. Performed By: #### 2 4323-8, LIPNF, 2132-01, 2283-12 ####[facility] LABIA [id number] [address] STATES OF [facility] NON HDL CHOL, NF 52 mg/dL Normal <130 [facility] Comment on above: Order Comment: Charlene men Type: BLOOD SPECIMENOrdering Facility: [facility] Address: [address] [place] [address] Result Comment: <130 mg/dL, Optimal 130-159 mg/dL, Near optimal/above optimal 160-189 mg/dL, Borderline high 190-219 mg/dL, High >219 mg/dL, Very high Secondary prevention optimal non HDL Cholesterol levels are recommended to be <100 mg/dL Performed By: #### 2 4323-8, LIPNF, 2132-01, 2283-12 ####[facility] LABCLIA [id number] [address] [place] [address] [place] T CHOL/HDL RATIO NF 2.11 mg/dL Normal <5.10 [facility] Comment on above: Order Comment: Speci men Type: BLOOD SPECIMENOrdering Facility: [facility] Address: [address] [place] [address] Performed By: #### 2 4323-8, LIPNF, 2132-01, 2283-12 ####[facility] LABIA [id number] [place] [address] [place] TRIGLYCERIDES, NF 81 mg/dL Normal <150 [facility] Comment on above: Order Comment: Speci men Type: BLOOD SPECIMENOrdering Facility: [facility] Address: [address] [place] [address] Result Comment: <150 mg/dL, Normal 150-199 mg/dL, Borderline high 200-499 mg/dL, High >499 mg/dL, Very high Performed By: #### 2 4323-8, LIPNF, 2132-01, 2283-12 ####[facility] LABIA [id number] [place] [address] [place] VLDL CHOLESTEROL, NF 11 mg/dL Normal <30 [facility] Comment on above: Order Comment: Speci men Type: BLOOD SPECIMENOrdering Facility: [facility] Address: [address] [place] [address] Performed By: #### 2 4323-8, LIPNF, 2132-01, 2283-12 ####[facility] LABIA [id number] [place] [id number] [place] No Panel Informationon 01-18 [facility] PROSTATE-SPECIFIC ANTIGEN DI AGNOSTICon 01-18-2025 Prostate specific Ag [Mass/Vol] 1.03 ng/mL NINF - 2.60 ng/mL [facility] Comment on above: Total PSA test metho dology used is the Electrochemiluminescence Immunoassay by [employer]. Total PSA values by differing methodologies cannot be interchanged. PSA SerPl-ncon 01-18-2025 Prostate specific Ag [Mass/Vol] 1.03 ng/mL Normal <2.60 [facility] Comment on above: Order Comment: Speci men Type: BLOOD SPECIMENOrdering Facility: [facility] Address: [address] [place] [address] Result Comment: Tota l PSA test methodology used is the Electrochemiluminescence Immunoassay by [employer]. Total PSA values by differing methodologies cannot be interchanged. Performed By: #### 2 857-1 ####[facility] LABCLIA [id number] [place] [address] [place] Prostate specific Ag [Mass/V ol]on 01-18-2025 Interpretation and review of laboratory results Normal [facility] VITAMIN B12on 01-18-2025 Cobalamin (Vitamin B12) [Mass/Vol] pg/mL High 232 - 1245 pg/mL [facility] Vit B12 SerPl-mCncon 025 Cobalamin (Vitamin B12) [Mass/Vol] pg/mL High 232-1245 [facility] Comment on above: Order Comment: Speci men Type: BLOOD SPECIMENOrdering Facility: [facility] Address: [address] [place] [address] Performed By: #### 2 4323-8, LIPNF, 2132-9, 2284-8 ####[facility] LABCLIA [id number] [place] [address] [place] CNCOon 01-09-2025 CNCO Letter Text Normal [facility] CNOVon 07-10-2024 CNOV Office Visit (FAMPWS ) YARITZA HENDERSON ([id number]) 1955 M Date Time Provider Department 07/10/24 11:40 AM ERUM ACSTANEDA During your visit today, we recorded the following information about you: Temperature Pulse Respiration Blood pressure 97.1 degrees 71/minute 18/minute 124/69 Weight 78.5 kg Erum Castaneda PA-C 07/10/2024 12:01 PM Signed Chief Complaint Patient presents with: Follow Up: Blood pressure HPI Yaritza Henderson is a 68 year old male who presents here today for Above Complaints.. At last visit we decreased patient's lisinopril from 40mg BID to just every day due to positional lightheadedness. He has noted significant improvement in his lightheadedness. Still has the occasional episode but not nearly as frequent. Past medical history, appointments, medications, allergies reviewed. Previous Medical History PAST MEDICAL HISTORY Diagnosis Date Advance directive discussed with patient 11/19/2021 Discussed 10/2021 Alcohol abuse 04/25/2018 Alcohol abuse 04/25/2018 12 pck per day since around 2014 (maybe longer) Benign prostatic hyperplasia without lower urinary tract symptoms 08/01/2019 Closed displaced fracture of seventh cervical vertebra with routine healing 07/06/2022 Closed fracture of first thoracic vertebra with routine healing 07/17/2022 Closed fracture of spinous process of cervical vertebra (HCC) 07/06/2022 Elevated alkaline phosphatase level 06/16/2021 Alcoholic liver disease Elevated LFTs 04/25/2018 Ex-smoker 04/25/2018 Started at 7 yo, 1/2-1 PPD and quit at age 19 Ex-smoker 04/25/2018 Started at 7 yo, 1/2-1 PPD and quit at age 19 Fatty liver, alcoholic 05/08/2018 History of right shoulder fracture Hypertension, essential 02/07/2018 Hyponatremia 06/08/2022 Seeing nephrology- Dr. Garvin Medicare annual wellness visit, subsequent 08/01/2019 :Medicare Part B: 09/28/2018 Last done: 08/01/2019 PVD (peripheral vascular disease) (HCC) 01/01/2023 LLE, CT 12/2022 Spinal stenosis in cervical region 07/17/2022 Subluxation of c6/C7 cervical vertebrae, initial encounter 07/06/2022 Tibia/fibula fracture Previous Surgical History PAST SURGICAL HISTORY Procedure Laterality Date 2D ECHO (EXEP) 06/21/2020 EF=60%, mild menchaca dysf, 1+ [place] COLONOSCOPY 01/09/2019 Dr. Gonzalez, repeat 10 yrs REMV CATARACT EXTRACAP,INSERT LENS Bilateral Summer/fall of 2021 Family History FAMILY HISTORY Problem Relation Age of Onset No Known Problems Mother when patient was 8 from accident No Known Problems Father No Known Problems Sister unsure of hx No Known Problems Brother doens't know hx No Known Problems Maternal Grandmother doesn't know hx No Known Problems Maternal Grandfather doesn't know hx No Known Problems Paternal Grandmother doesn't know hx No Known Problems Paternal Grandfather doesn't know hx Alzheimer's Disease No Family History Colon Cancer No Family History Prostate Cancer No Family History Coronary Artery Disease No Family History Diabetes No Family History Hypertension No Family History Hyperlipidemia No Family History Kidney Disease No Family History Seizures No Family History Stroke No Family History Thyroid No Family History Patient Allergies ALLERGIES No Known Allergies Current Medications Current Outpatient Medications on File Prior to Visit Medication Sig lisinopril (ZESTRIL) 40 mg tablet Take 1 tablet by mouth once daily. amLODIPine (NORVASC) 10 mg tablet Take 1 tablet by mouth once daily. folic acid 400 mcg tablet Take 1 tablet by mouth once daily. cyanocobalamin (VITAMIN B-12) 500 mcg tablet Take 1 tablet by mouth once daily. thiamine (VITAMIN B1) 50 mg tablet Take 1 tablet by mouth once daily. acetaminophen (TYLENOL EXTRA STRENGTH) 500 mg tablet Take 2 tablets by mouth every 8 hours as needed for pain (for pain.). Blood Pressure Monitor kit Take blood pressure daily DX: hypertension COMPOUNDED PRESCRIPTION Take blood pressure daily and write it down acetaminophen (TYLENOL) 325 mg tablet Take 3 tablets by mouth every 6 hours as needed for pain. (Patient not taking: Reported on 07/10/2024) No current facility-administered medications on file prior to visit. Social History Social History Tobacco Use Smoking status: Former Smokeless tobacco: Never Tobacco comments: quit when he was 19 Vaping Use Vaping status: Never Used Substance Use Topics Alcohol use: Yes Alcohol/week: 105.0 standard drinks of alcohol Types: 63 Standard drinks or equivalent, 42 Cans of Beer (12oz) per week Comment: 6 beers a day Drug use: No Review of Symptoms REVIEW OF SYSTEMS See hp EXAM: BP 124/69 (BP Site: Left Arm, BP Position: Sitting, BP Cuff Size: Regular Adult) Pulse 71 Temp 36.2 ?C (97.1 ?F) Resp 18 Wt 78.5 kg (173 lb) SpO2 98% BMI 25.05 kg/m? General Appearance: Well appearing, lalo (more content not included)... Normal [facility] CNPNon 07-06-2024 [facility] YARIT[facility] HENDERSON ([id number]) 1955 M Date Time Provider Department 07/06/24 ERUM CASTANEDA [facility] During your visit today, we recorded the following information about you: Erum Castaneda PA-C 07/06/2024 8:07 AM Signed Let patient know that his alk phos levels are mostly coming from his liver. I would like to get a specific type of US that checks for fibrosis since the regular US was normal last year.. I will send the order to [facility] to see if they take his insurance. Urine was okay Please give me [facility] US with elastrography order to sign. Thank you! KYLAH Bryant Sherill A, LPN 07/06/2024 9:10 AM Addendum Pt notified of Erum's message and instructions. Pt verbalizes understanding. Pt aware [facility] will contact him to schedule US if approved by his insurance. Order has been faxed to [facility]. CARINE Muhammad Amanda, MAGDALENA 07/06/2024 11:36 AM Signed Katy with [facility] Scheduling called and reports they do not take [employer] insurance. She states he will have to go somewhere else for his liver US and Elastography. Did not know if provider had a place in mind of where she wanted him to go to get it. Please call and advise Pt. Erum Castaneda PA-C 07/06/2024 1:10 PM Signed Let patient know that no local options available. Is he willing to travel? I don't know how far. Order placed to schedule if he is willing. Erum Castaneda PA-C 07/06/2024 1:10 PM Signed Addended by: ERUM BEASLEY on: 07/06/2024 01:10 PM Modules accepted: Orders Steve Ochoa LPN 07/06/2024 1:32 PM Signed Advised pt of message below. Pt advises that he cannot travel d/t transportation issues. CARINE Muhammad Rayanne, PA-C 07/06/2024 1:42 PM Signed Noted. Allergies As of Date: 07/06/2024 (No Known Allergies) Date Reviewed: 06/26/2024 Reviewed by: Steve Ochoa LPN - Fully Assessed Reason for Visit: Results [95] Primary Visit Diagnosis:Fatty liver, alcoholic [K70.0] Other Visit Diagnoses:Elevated LFTs [R79.89] Elevated alkaline phosphatase level [R74.8] Order(s):US ABD RIGHT UPPER QUADRANT [[id number]] Order #: [id number] FUTURE US ELASTOGRAPHY LIVER [[id number]] Order #: [id number] FUTURE Prescriptions as of 07/06/2024 - lisinopril (ZESTRIL) 40 mg tablet Take 1 tablet by mouth once daily. - amLODIPine (NORVASC) 10 mg tablet Take 1 tablet by mouth once daily. - folic acid 400 mcg tablet Take 1 tablet by mouth once daily. - cyanocobalamin (VITAMIN B-12) 500 mcg tablet Take 1 tablet by mouth once daily. - thiamine (VITAMIN B1) 50 mg tablet Take 1 tablet by mouth once daily. - acetaminophen (TYLENOL EXTRA STRENGTH) 500 mg tablet Take 2 tablets by mouth every 8 hours as needed for pain (for pain.). - acetaminophen (TYLENOL) 325 mg tablet Take 3 tablets by mouth every 6 hours as needed for pain. - Blood Pressure Monitor kit Take blood pressure daily DX: hypertension - COMPOUNDED PRESCRIPTION Take blood pressure daily and write it down Problem List As Of Date 07/06/2024 Noted Resolved Hypertension, essential [I10] 02/07/2018 Alcohol abuse [F10.10] 04/25/2018 Ex-smoker [Z87.891] 04/25/2018 Elevated LFTs [R79.89] 04/25/2018 Proteinuria [R80.9] 04/25/2018 11/19/2021 Fatty liver, alcoholic [K70.0] 05/08/2018 Medicare annual wellness visit, subsequent [Z00*08/01/2019 Benign prostatic hyperplasia without lower urin*08/01/2019 Prostate disorder [N42.9] 08/01/2019 Anemia [D64.9] 08/01/2019 Elevated alkaline phosphatase level [R74.8] 06/16/2021 Advance directive discussed with patient [Z71.8*11/19/2021 Hyponatremia [E87.1] 06/08/2022 Closed fracture of spinous process of cervical *07/06/2022 12/16/2022 Closed displaced fracture of seventh cervical v*07/06/2022 12/16/2022 Subluxation of c6/C7 cervical vertebrae, initia*07/06/2022 12/16/2022 Spinal stenosis in cervical region [M48.02] 07/17/2022 Closed fracture of first thoracic vertebra with*07/17/2022 12/16/2022 Folate deficiency [E53.8] 12/23/2022 PVD (peripheral vascular disease) (HCC) [I73.9] 01/01/2023 Elevated PSA [R97.20] 01/06/2024 Encounter Status:Closed by STEVE OCHOA on 07/06/24 Normal [facility] ALKALINE PHOSPHATASE ISOENZY MES (P)on 07-04-2024 ALK PHOS BONE % 12.9 % Normal 10.7-68.3 [facility] Comment on above: Order Comment: Speci men Type: BLOOD SPECIMENOrdering Facility: [facility] Address: [address] [place] [address] Performed By: #### A LKISOP ####[facility] LABCLIA [id number] [facility] [id number] [address] [place] ALK PHOS LIVER % 87.1 % High 26.0-86.2 Khris badillo [facility] Comment on above: Order Comment: Speci men Type: BLOOD SPECIMENOrdering Facility: [facility] Address: [address] [place] [address] Performed By: #### A LKISOP ####[facility] LABCLIA [id number] [address] [place] BONE FRACTION 27.2 U/L Normal 12.9-52.6 [facility] Comment on above: Order Comment: Speci men Type: BLOOD SPECIMENOrdering Facility: [facility] Address: [address] [place] [address] Performed By: #### A LKISOP ####[facility] LABCLIA [id number] [place] [address] [place] INTESTINE FRACTION 0.0 U/L Normal 0.0-16.3 [facility] Comment on above: Order Comment: Speci men Type: BLOOD SPECIMENOrdering Facility: [facility] Address: [address] [place] [address] Performed By: #### A LKISOP ####[facility] LABCLIA [id number] [place] [address] [place] LIVER FRACTION 183.8 U/L High 16.0-69.3 [facility] Comment on above: Order Comment: Speci men Type: BLOOD SPECIMENOrdering Facility: [facility] Address: [address] [place] [address] Performed By: #### A LKISOP ####[facility] LABCLIA [id number] [address] [place] Neutrophils/100 WBC (Bld) 0.0 % Normal 0.0-24.2 [facility] Comment on above: Order Comment: Speci men Type: BLOOD SPECIMENOrdering Facility: [facility] Address: [address] [place] [address] Performed By: #### A LKISOP ####[facility] LABCLIA [id number] [place] [address] [place] ALP SerPl-cCncon 07-04-2024 ALP [Catalytic activity/Vol] 211 U/L High 38-113 [facility] Comment on above: Order Comment: Speci men Type: BLOOD SPECIMENOrdering Facility: [facility] Address: [address] [place] [address] Performed By: #### 6 768-6, 2324-2 ####[facility] LABCLIA [id number] [place] [address] [place] CBC W Auto Differential pane l (Bld)on 07-04-2024 Basophils (Bld) [#/Vol] 0.11 10*3/uL High <0.11 [facility] Comment on above: Order Comment: Speci men Type: BLOOD SPECIMENOrdering Facility: [facility] Address: [address] [place] [address] Performed By: #### 5 7021-8 ####[facility] LABCLIA [id number] [place] [address] [place] Basophils/100 WBC (Bld) 1.6 % Normal [facility] Comment on above: Order Comment: Speci men Type: BLOOD SPECIMENOrdering Facility: [facility] Address: [address] [place] [address] Performed By: #### 5 7021-8 ####[facility] LABCLIA [id number] [place] [address] [place] Differential cell count method Nom (Bld) Auto Normal [facility] Comment on above: Order Comment: Speci men Type: BLOOD SPECIMENOrdering Facility: [facility] Address: [address] [place] [address] Performed By: #### 5 7021-8 ####[facility] LABCLIA [id number] [place] [address] [place] Eosinophils (Bld) [#/Vol] 0.24 10*3/uL Normal <0.46 [facility] Comment on above: Order Comment: Speci men Type: BLOOD SPECIMENOrdering Facility: [facility] Address: [address] [place] [address] Performed By: #### 5 7021-8 ####[facility] LABCLIA [id number] [place] [address] [place] Eosinophils/100 WBC (Bld) 3.4 % Normal [facility] Comment on above: Order Comment: Speci men Type: BLOOD SPECIMENOrdering Facility: [facility] Address: [address] [place] [address] Performed By: #### 5 7021-8 ####[facility] LABCLIA [id number] [place] [address] [place] Erythrocyte distribution width (RBC) [Ratio] 12.2 % Normal 11.5-15.0 [facility] Comment on above: Order Comment: Speci men Type: BLOOD SPECIMENOrdering Facility: [facility] Address: [address] [place] [address] Performed By: #### 5 7021-8 ####[facility] LABCLIA [id number] [place] [address] [place] Hematocrit (Bld) [Volume fraction] 48.0 % Normal 39.0-51.0 [facility] Comment on above: Order Comment: Speci men Type: BLOOD SPECIMENOrdering Facility: [facility] Address: [address] [place] [address] Performed By: #### 5 7021-8 ####[facility] LABCLIA [id number] [place] [address] [place] Hemoglobin (Bld) [Mass/Vol] 16.7 g/dL Normal 13.0-17.0 [facility] Comment on above: Order Comment: Speci men Type: BLOOD SPECIMENOrdering Facility: [facility] Address: [address] [place] [address] Performed By: #### 5 7021-8 ####[facility] LABCLIA [id number] [place] [address] [place] Immature granulocytes (Bld) [#/Vol] 10*3/uL Normal <0.10 [facility] Comment on above: Order Comment: Speci men Type: BLOOD SPECIMENOrdering Facility: [facility] Address: [address] [place] [address] Performed By: #### 5 7021-8 ####[facility] LABCLIA [id number] [place] [address] [place] Immature granulocytes/100 WBC (Bld) 0.1 % Normal [facility] Comment on above: Order Comment: Speci men Type: BLOOD SPECIMENOrdering Facility: [facility] Address: [address] [place] [address] Performed By: #### 5 7021-8 ####[facility] LABCLIA [id number] [place] [address] [place] Lymphocytes (Bld) [#/Vol] 1.69 10*3/uL Normal 1.00-4.00 [facility] Comment on above: Order Comment: Speci men Type: BLOOD SPECIMENOrdering Facility: [facility] Address: [address] [place] [address] Performed By: #### 5 7021-8 ####[facility] LABCLIA [id number] [place] [address] [place] Lymphocytes/100 WBC (Bld) 24.0 % Normal [facility] Comment on above: Order Comment: Speci men Type: BLOOD SPECIMENOrdering Facility: [facility] Address: [address] [place] [address] Performed By: #### 5 7021-8 ####[facility] LABCLIA [id number] [place] [address] [place] MCH (RBC) [Entitic mass] 31.9 pg Normal 26.0-34.0 [facility] Comment on above: Order Comment: Speci men Type: BLOOD SPECIMENOrdering Facility: [facility] Address: [address] [place] [address] Performed By: #### 5 7021-8 ####[facility] LABIA [id number] [place] [address] [place] MCHC (RBC) [Mass/Vol] 34.8 g/dL Normal 30.5-36.0 [facility] Comment on above: Order Comment: Speci men Type: BLOOD SPECIMENOrdering Facility: [facility] Address: [address] [place] [address] Performed By: #### 5 7021-8 ####[facility] LABIA [id number] [place] [address] [place] MCV (RBC) [Entitic vol] 91.8 fL Normal 80.0-100.0 [facility] Comment on above: Order Comment: Speci men Type: BLOOD SPECIMENOrdering Facility: [facility] Address: [address] [place] [address] Performed By: #### 5 7021-8 ####[facility] LABIA [id number] [place] [address] [place] Monocytes (Bld) [#/Vol] 0.71 10*3/uL Normal <0.87 [facility] Comment on above: Order Comment: Speci men Type: BLOOD SPECIMENOrdering Facility: [facility] Address: [address] [place] [address] Performed By: #### 5 7021-8 ####[facility] [id number] [place] [address] [place] Monocytes/100 WBC (Bld) 10.1 % Normal [facility] Comment on above: Order Comment: Speci men Type: BLOOD SPECIMENOrdering Facility: [facility] Address: [address] [place] [address] Performed By: #### 5 7021-8 ####[facility] LABCL[facility] [id number] [place] [address] [place] Neutrophils (Bld) [#/Vol] 4.29 10*3/uL Normal 1.45-7.50 [facility] Comment on above: Order Comment: Speci men Type: BLOOD SPECIMENOrdering Facility: [facility] Address: [address] [place] [address] Performed By: #### 5 7021-8 ####[facility]CL[facility] [id number] [place] [address] [place] Neutrophils/100 WBC (Bld) 60.8 % Normal [facility] Comment on above: Order Comment: Speci men Type: BLOOD SPECIMENOrdering Facility: [facility] Address: [address] [place] [address] Performed By: #### 5 7021-8 ####[facility]CL[facility] [id number] [place] [address] [place] Nucleated RBC (Bld) [#/Vol] 10*3/uL Normal <0.01 [facility] Comment on above: Order Comment: Speci men Type: BLOOD SPECIMENOrdering Facility: [facility] Address: [address] [place] [address] Performed By: #### 5 7021-8 ####[facility]CL[facility] [id number] [place] [address] [place] Nucleated RBC/100 WBC (Bld) [Ratio] 0.0 /100 WBC Normal [facility] Comment on above: Order Comment: Speci men Type: BLOOD SPECIMENOrdering Facility: [facility] Address: [address] [place] [address] Performed By: #### 5 7021-8 ####[facility]CL[facility] [id number] [place] [address] [place] Platelet mean volume (Bld) [Entitic vol] 7.9 fL Low 9.0-12.7 [facility] Comment on above: Order Comment: Speci men Type: BLOOD SPECIMENOrdering Facility: [facility] Address: [address] [place] [address] Performed By: #### 5 7021-8 ####[facility]CL[facility] [id number] [place] [address] [place] Platelets (Bld) [#/Vol] 315 10*3/uL Normal 150-400 [facility] Comment on above: Order Comment: Speci men Type: BLOOD SPECIMENOrdering Facility: [facility] Address: [address] [place] [address] Performed By: #### 5 7021-8 ####[facility] [id number] [place] [address] [place] RBC (Bld) [#/Vol] 5.23 10*6/uL Normal 4.20-6.00 [facility] Comment on above: Order Comment: Speci men Type: BLOOD SPECIMENOrdering Facility: [facility] Address: [address] [place] [address] Performed By: #### 5 7021-8 ####[facility] [id number] [place] [address] [place] WBC (Bld) [#/Vol] 7.05 10*3/uL Normal 3.70-11.00 [facility] Comment on above: Order Comment: Speci men Type: BLOOD SPECIMENOrdering Facility: [facility] Address: [address] [place] [address] Performed By: #### 5 7021-8 ####[facility] [id number] [place] [address] [place] GGT SerPl-cCncon 07-04-2024 Gamma glutamyl transferase [Catalytic activity/Vol] 29 U/L Normal 10-70 [facility] Comment on above: Order Comment: Speci men Type: BLOOD SPECIMENOrdering Facility: [facility] Address: [address] [place] [address] Performed By: #### 6 768-6, 2324-2 ####[facility]CL[facility] [id number] [place] [address] [place] Urinalysis complete panel (U )on 07-04-2024 Bacteria LM.HPF (Urine sed) [#/Area] Negative Normal Negative [facility] Comment on above: Order Comment: Speci men Type: URINE SPECIMENOrdering Facility: [facility] Address: [address] [place] [address] Performed By: #### 2 4356-8 ####[facility]CL[facility] [id number] [place] [address] [place] Bilirubin Ql (U) Negative Normal Negative [facility] Comment on above: Order Comment: Speci men Type: URINE SPECIMENOrdering Facility: [facility] Address: [address] [place] [address] Performed By: #### 2 4356-8 ####[facility] [id number] [place] [address] [place] Clarity (Unsp spec) Clear Normal Clear [facility] Comment on above: Order Comment: Speci men Type: URINE SPECIMENOrdering Facility: [facility] Address: [address] [place] [address] Performed By: #### 2 4356-8 ####[facility] [id number] [place] [address] [place] Color (U) Yellow Normal Yellow [facility] Comment on above: Order Comment: Speci men Type: URINE SPECIMENOrdering Facility: [facility] Address: [address] [place] [address] Performed By: #### 2 4356-8 ####[facility]CL[facility] [id number] [id number] [address] [place] Epithelial cells LM.HPF (Urine sed) [#/Area] None Seen Normal [facility] Comment on above: Order Comment: Speci men Type: URINE SPECIMENOrdering Facility: [facility] Address: [address] [place] [address] Performed By: #### 2 4356-8 ####[facility]CL[facility] [id number] [place] [address] [place] Glucose Test strip (U) [Mass/Vol] Negative Normal Negative [facility] Comment on above: Order Comment: Speci men Type: URINE SPECIMENOrdering Facility: [facility] Address: [address] [place] [address] Performed By: #### 2 4356-8 ####[facility]CL[facility] [id number] [place] [address] [place] Hemoglobin Ql (U) Negative Normal Negative [facility] Comment on above: Order Comment: Speci men Type: URINE SPECIMENOrdering Facility: [facility] Address: [address] [place] [address] Performed By: #### 2 4356-8 ####[facility]CL[facility] [id number] [address] [place] Hyaline casts (Urine sed) [#/Area] 0 /[LPF] Normal 0 /LPF [facility] Comment on above: Order Comment: Speci men Type: URINE SPECIMENOrdering Facility: [facility] Address: [address] [place] [address] Performed By: #### 2 4356-8 ####[facility]CL[facility] [id number] [address] [place] Ketones Ql (U) Negative Normal Negative [facility] Comment on above: Order Comment: Speci men Type: URINE SPECIMENOrdering Facility: [facility] Address: [address] [place] [address] Performed By: #### 2 4356-8 ####[facility]CL[facility] [id number] [place] [address] [place] Leukocyte esterase Test strip Ql (U) 2+ Abnormal Negative [facility] Comment on above: Order Comment: Speci men Type: URINE SPECIMENOrdering Facility: [facility] Address: [address] [place] [address] Performed By: #### 2 4356-8 ####[facility]CL[facility] [id number] [place] [address] [place] Nitrite Ql (U) Negative Normal Negative [facility] Comment on above: Order Comment: Speci men Type: URINE SPECIMENOrdering Facility: [facility] Address: [address] [place] [address] Performed By: #### 2 4356-8 ####[facility]CL[facility] [id number] [place] [address] [place] pH (U) 6.5 [pH] Normal <8.5 [facility] Comment on above: Order Comment: Speci men Type: URINE SPECIMENOrdering Facility: [facility] Address: [address] [place] [address] Performed By: #### 2 4356-8 ####[facility]CL[facility] [id number] [place] [address] [place] Protein (U) [Mass/Vol] Negative Normal Negative [facility] Comment on above: Order Comment: Speci men Type: URINE SPECIMENOrdering Facility: [facility] Address: [address] [place] [address] Performed By: #### 2 4356-8 ####[facility]CL[facility] [id number] [place] [address] [place] RBC LM.HPF (Urine sed) [#/Area] 0-2 /HPF Normal 0-2 /HPF [facility] Comment on above: Order Comment: Speci men Type: URINE SPECIMENOrdering Facility: [facility] Address: [address] [place] [address] Performed By: #### 2 4356-8 ####[facility] [id number] [place] [address] [place] Specific gravity (U) [Rel density] 1.007 Normal 1.005-1.030 [facility] Comment on above: Order Comment: Speci men Type: URINE SPECIMENOrdering Facility: [facility] Address: [address] [place] [address] Performed By: #### 2 4356-8 ####[facility] [id number] [place] [address] [place] Urobilinogen Ql (U) 1.0 EU/dL Normal 0.2-1.0 EU/dL [facility] Comment on above: Order Comment: Speci men Type: URINE SPECIMENOrdering Facility: [facility] Address: [address] [place] [address] Performed By: #### 2 4356-8 ####[facility] [id number] [place] [address] [place] WBC LM.HPF (Urine sed) [#/Area] 11-20 /HPF Abnormal 0-5 /HPF [facility] Comment on above: Order Comment: Speci men Type: URINE SPECIMENOrdering Facility: [facility] Address: [address] [place] [address] Performed By: #### 2 4356-8 ####[facility] [id number] [place] [address] [place] CNOVon 06-26-2024 CNOV Office Visit (FAMPWS ) YARITZA HENDERSON ([id number]) 1955 M Date Time Provider Department 06/26/24 11:40 AM ERUM CASTANEDA During your visit today, we recorded the following information about you: Temperature Pulse Respiration Blood pressure 97.7 degrees 58/minute 16/minute 122/70 Weight 76.2 kg Erum Castaneda PA-C 06/26/2024 12:28 PM Signed Chief Complaint Patient presents with: 6 Month Exam HPI Yaritza Henderson is a 68 year old male who presents here today for Chronic Medical Conditions.. Patient with hx of HTN, anemia, fatty liver (alcoholic), BPH, hx of alcohol abuse and those as below. Patient has noted some lightheadedness with standing. Only for a couple seconds. Has been going on for 6+months. Otherwise, no concerns today. Past medical history, appointments, medications, allergies reviewed. Previous Medical History PAST MEDICAL HISTORY Diagnosis Date Advance directive discussed with patient 11/19/2021 Discussed 10/2021 Alcohol abuse 04/25/2018 Alcohol abuse 04/25/2018 12 pck per day since around 2014 (maybe longer) Benign prostatic hyperplasia without lower urinary tract symptoms 08/01/2019 Closed displaced fracture of seventh cervical vertebra with routine healing 07/06/2022 Closed fracture of first thoracic vertebra with routine healing 07/17/2022 Closed fracture of spinous process of cervical vertebra (HCC) 07/06/2022 Elevated alkaline phosphatase level 06/16/2021 Alcoholic liver disease Elevated LFTs 04/25/2018 Ex-smoker 04/25/2018 Started at 7 yo, 1/2-1 PPD and quit at age 19 Ex-smoker 04/25/2018 Started at 7 yo, 1/2-1 PPD and quit at age 19 Fatty liver, alcoholic 05/08/2018 History of right shoulder fracture Hypertension, essential 02/07/2018 Hyponatremia 06/08/2022 Seeing nephrology- Dr. Garvin Medicare annual wellness visit, subsequent 08/01/2019 :Medicare Part B: 09/28/2018 Last done: 08/01/2019 PVD (peripheral vascular disease) (HCC) 01/01/2023 LLE, CT 12/2022 Spinal stenosis in cervical region 07/17/2022 Subluxation of c6/C7 cervical vertebrae, initial encounter 07/06/2022 Tibia/fibula fracture Previous Surgical History PAST SURGICAL HISTORY Procedure Laterality Date 2D ECHO (EXEP) 06/21/2020 EF=60%, mild menchaca dysf, 1+ [place] COLONOSCOPY 01/09/2019 Dr. Gonzalez, repeat 10 yrs REMV CATARACT EXTRACAP,INSERT LENS Bilateral Summer/fall of 2021 Family History FAMILY HISTORY Problem Relation Age of Onset No Known Problems Mother when patient was 8 from accident No Known Problems Father No Known Problems Sister unsure of hx No Known Problems Brother doens't know hx No Known Problems Maternal Grandmother doesn't know hx No Known Problems Maternal Grandfather doesn't know hx No Known Problems Paternal Grandmother doesn't know hx No Known Problems Paternal Grandfather doesn't know hx Alzheimer's Disease No Family History Colon Cancer No Family History Prostate Cancer No Family History Coronary Artery Disease No Family History Diabetes No Family History Hypertension No Family History Hyperlipidemia No Family History Kidney Disease No Family History Seizures No Family History Stroke No Family History Thyroid No Family History Patient Allergies ALLERGIES No Known Allergies Current Medications Current Outpatient Medications on File Prior to Visit Medication Sig amLODIPine (NORVASC) 10 mg tablet Take 1 tablet by mouth once daily. folic acid 400 mcg tablet Take 1 tablet by mouth once daily. lisinopril (ZESTRIL) 40 mg tablet Take 1 tablet by mouth two times a day. cyanocobalamin (VITAMIN B-12) 500 mcg tablet Take 1 tablet by mouth once daily. thiamine (VITAMIN B1) 50 mg tablet Take 1 tablet by mouth once daily. acetaminophen (TYLENOL EXTRA STRENGTH) 500 mg tablet Take 2 tablets by mouth every 8 hours as needed for pain (for pain.). Blood Pressure Monitor kit Take blood pressure daily DX: hypertension acetaminophen (TYLENOL) 325 mg tablet Take 3 tablets by mouth every 6 hours as needed for pain. (Patient not taking: Reported on 12/27/2023) COMPOUNDED PRESCRIPTION Take blood pressure daily and write it down No current facility-administered medications on file prior to visit. Social History Social History Tobacco Use Smoking status: Former Smokeless tobacco: Never Tobacco comments: quit when he was 19 Vaping Use Vaping status: Never Used Substance Use Topics Alcohol use: Yes Alcohol/week: 105.0 standard drinks of alcohol Types: 63 Standard drinks or equivalent, 42 Cans of Beer (12oz) per week Comment: 6 beers a day Drug use: No Review of Symptoms REVIEW OF SYSTEMS GENERAL: No weight loss, malaise or fevers NECK: Negative for lumps, goiter, pain and significant neck swelling RESPIRATORY: Negative for cough, hemoptysis, wheezing, COPD, dyspnea or shortness of breath CARDIOVASCULAR: (more content not included)... Normal [facility] CBC W Auto Differential pane l (Bld)on 06-21-2024 Basophils (Bld) [#/Vol] 0.09 10*3/uL Normal <0.11 [facility] Comment on above: Order Comment: Speci men Type: BLOOD SPECIMENOrdering Facility: [facility] Address: [address] [place] [address] Performed By: #### 5 7021-8 ####[facility] [id number] [place] [address] [place] Basophils/100 WBC (Bld) 0.9 % Normal [facility] Comment on above: Order Comment: Speci men Type: BLOOD SPECIMENOrdering Facility: [facility] Address: [address] [place] [address] Performed By: #### 5 7021-8 ####[facility] [id number] [place] [address] [place] Differential cell count method Nom (Bld) Auto Normal [facility] Comment on above: Order Comment: Speci men Type: BLOOD SPECIMENOrdering Facility: [facility] Address: [address] [place] [address] Performed By: #### 5 7021-8 ####[facility] [id number] [place] [address] [place] Eosinophils (Bld) [#/Vol] 0.21 10*3/uL Normal <0.46 [facility] Comment on above: Order Comment: Speci men Type: BLOOD SPECIMENOrdering Facility: [facility] Address: [address] [place] [address] Performed By: #### 5 7021-8 ####[facility]CL[facility] [id number] [place] [address] [place] Eosinophils/100 WBC (Bld) 2.1 % Normal [facility] Comment on above: Order Comment: Speci men Type: BLOOD SPECIMENOrdering Facility: [facility] Address: [address] [place] [address] Performed By: #### 5 7021-8 ####[facility] [id number] [place] [address] [place] Erythrocyte distribution width (RBC) [Ratio] 12.9 % Normal 11.5-15.0 [facility] Comment on above: Order Comment: Speci men Type: BLOOD SPECIMENOrdering Facility: [facility] Address: [address] [place] [address] Performed By: #### 5 7021-8 ####[facility]CL[facility] [id number] [place] [address] [place] Hematocrit (Bld) [Volume fraction] 50.7 % Normal 39.0-51.0 [facility] Comment on above: Order Comment: Speci men Type: BLOOD SPECIMENOrdering Facility: [facility] Address: [address] [place] [address] Performed By: #### 5 7021-8 ####[facility]CL[facility] [id number] [place] [address] [place] Hemoglobin (Bld) [Mass/Vol] 17.3 g/dL High 13.0-17.0 [facility] Comment on above: Order Comment: Speci men Type: BLOOD SPECIMENOrdering Facility: [facility] Address: [address] [place] [address] Performed By: #### 5 7021-8 ####[facility]CL[facility] [id number] [place] [address] [place] Immature granulocytes (Bld) [#/Vol] 0.03 10*3/uL Normal <0.10 [facility] Comment on above: Order Comment: Speci men Type: BLOOD SPECIMENOrdering Facility: [facility] Address: [address] [place] [address] Performed By: #### 5 7021-8 ####[facility]CL[facility] [id number] [place] [address] [place] Immature granulocytes/100 WBC (Bld) 0.3 % Normal [facility] Comment on above: Order Comment: Speci men Type: BLOOD SPECIMENOrdering Facility: [facility] Address: [address] [place] [address] Performed By: #### 5 7021-8 ####[facility]CL[facility] [id number] [place] [address] [place] Lymphocytes (Bld) [#/Vol] 1.72 10*3/uL Normal 1.00-4.00 [facility] Comment on above: Order Comment: Speci men Type: BLOOD SPECIMENOrdering Facility: [facility] Address: [address] [place] [address] Performed By: #### 5 7021-8 ####[facility] [id number] [place] [address] [place] Lymphocytes/100 WBC (Bld) 17.6 % Normal [facility] Comment on above: Order Comment: Speci men Type: BLOOD SPECIMENOrdering Facility: [facility] Address: [address] [place] [address] Performed By: #### 5 7021-8 ####[facility] [id number] [place] [address] [place] MCH (RBC) [Entitic mass] 32.2 pg Normal 26.0-34.0 [facility] Comment on above: Order Comment: Speci men Type: BLOOD SPECIMENOrdering Facility: [facility] Address: [address] [place] [address] Performed By: #### 5 7021-8 ####[facility] [id number] [place] [address] [place] MCHC (RBC) [Mass/Vol] 34.1 g/dL Normal 30.5-36.0 [facility] Comment on above: Order Comment: Speci men Type: BLOOD SPECIMENOrdering Facility: [facility] Address: [address] [place] [address] Performed By: #### 5 7021-8 ####[facility] [id number] [place] [address] [place] MCV (RBC) [Entitic vol] 94.4 fL Normal 80.0-100.0 [facility] Comment on above: Order Comment: Speci men Type: BLOOD SPECIMENOrdering Facility: [facility] Address: [address] [place] [address] Performed By: #### 5 7021-8 ####[facility] [id number] [place] [address] [place] Monocytes (Bld) [#/Vol] 1.06 10*3/uL High <0.87 [facility] Comment on above: Order Comment: Speci men Type: BLOOD SPECIMENOrdering Facility: [facility] Address: [address] [place] [address] Performed By: #### 5 7021-8 ####[facility] [id number] [place] [address] [place] Monocytes/100 WBC (Bld) 10.8 % Normal [facility] Comment on above: Order Comment: Speci men Type: BLOOD SPECIMENOrdering Facility: [facility] Address: [address] [place] [address] Performed By: #### 5 7021-8 ####[facility] [id number] [place] [address] [place] Neutrophils (Bld) [#/Vol] 6.67 10*3/uL Normal 1.45-7.50 [facility] Comment on above: Order Comment: Speci men Type: BLOOD SPECIMENOrdering Facility: [facility] Address: [address] [place] [address] Performed By: #### 5 7021-8 ####[facility] [id number] [place] [address] [place] Neutrophils/100 WBC (Bld) 68.3 % Normal [facility] Comment on above: Order Comment: Speci men Type: BLOOD SPECIMENOrdering Facility: [facility] Address: [address] [place] [address] Performed By: #### 5 7021-8 ####[facility] [id number] [place] [address] [place] Nucleated RBC (Bld) [#/Vol] 10*3/uL Normal <0.01 [facility] Comment on above: Order Comment: Speci men Type: BLOOD SPECIMENOrdering Facility: [facility] Address: [address] [place] [address] Performed By: #### 5 7021-8 ####[facility] [id number] [place] [address] [place] Nucleated RBC/100 WBC (Bld) [Ratio] 0.0 /100 WBC Normal [facility] Comment on above: Order Comment: Speci men Type: BLOOD SPECIMENOrdering Facility: [facility] Address: [address] [place] [address] Performed By: #### 5 7021-8 ####[facility] [id number] [place] [address] [place] Platelet mean volume (Bld) [Entitic vol] 8.0 fL Low 9.0-12.7 [facility] Comment on above: Order Comment: Speci men Type: BLOOD SPECIMENOrdering Facility: [facility] Address: [address] [place] [address] Performed By: #### 5 7021-8 ####[facility] [id number] [address] [address] [place] Platelets (Bld) [#/Vol] 311 10*3/uL Normal 150-400 [facility] Comment on above: Order Comment: Speci men Type: BLOOD SPECIMENOrdering Facility: [facility] Address: [address] [place] [address] Performed By: #### 5 7021-8 ####[facility] [id number] [place] [address] [place] RBC (Bld) [#/Vol] 5.37 10*6/uL Normal 4.20-6.00 [facility] Comment on above: Order Comment: Speci men Type: BLOOD SPECIMENOrdering Facility: [facility] Address: [address] [place] [address] Performed By: #### 5 7021-8 ####[facility] [id number] [place] [address] [place] WBC (Bld) [#/Vol] 9.78 10*3/uL Normal 3.70-11.00 [facility] Comment on above: Order Comment: Speci men Type: BLOOD SPECIMENOrdering Facility: [facility] Address: [address] [place] [address] Performed By: #### 5 7021-8 ####[facility] [id number] [place] [id number] [place] Comprehensive metabolic 2000 panelon 06-21-2024 Albumin [Mass/Vol] 3.6 g/dL Low 3.9-4.9 [facility] Comment on above: Order Comment: Speci men Type: BLOOD SPECIMENOrdering Facility: [facility] Address: [address] [place] [address] Performed By: #### 1 0886-0, 2132-9, 32083-3, 2284-8 ####[facility] [id number] [place] [address] [place] ALP [Catalytic activity/Vol] 257 U/L High 38-113 [facility] Comment on above: Order Comment: Speci men Type: BLOOD SPECIMENOrdering Facility: [facility] Address: [address] [place] [address] Performed By: #### 1 0886-0, 9, 85381-0, 8 ####[facility] [id number] [place] [address] [place] ALT [Catalytic activity/Vol] 21 U/L Normal 10-54 [facility] Comment on above: Order Comment: Speci men Type: BLOOD SPECIMENOrdering Facility: [facility] Address: [address] [place] [address] Performed By: #### 1 0886-0, 2132-01, 76521-1, 2283-12 ####[facility] [id number] [place] [address] [place] Anion gap [Moles/Vol] 11 mmol/L Normal 8-15 [facility] Comment on above: Order Comment: Speci men Type: BLOOD SPECIMENOrdering Facility: [facility] Address: [address] [place] [address] Performed By: #### 1 0886-0, 2132-01, 29370-9, 2283-12 ####[facility] [id number] [place] [address] [place] AST [Catalytic activity/Vol] 35 U/L Normal 14-40 [facility] Comment on above: Order Comment: Speci men Type: BLOOD SPECIMENOrdering Facility: [facility] Address: [address] [place] [address] Performed By: #### 1 0886-0, 9, 74659-6, 8 ####[facility] [id number] [place] [id number] [place] Bilirubin [Mass/Vol] 0.5 mg/dL Normal 0.2-1.3 [facility] Comment on above: Order Comment: Speci men Type: BLOOD SPECIMENOrdering Facility: [facility] Address: [address] [place] [address] Performed By: #### 1 0886-0, 2132-01, 03335-1, 2283-12 ####[facility] [id number] [place] [address] [place] Calcium [Mass/Vol] 9.0 mg/dL Normal 8.5-10.2 [facility] Comment on above: Order Comment: Speci men Type: BLOOD SPECIMENOrdering Facility: [facility] Address: [address] [place] [address] Performed By: #### 1 0886-0, 2132-01, , 2283-12 ####[facility] [id number] [place] [address] [place] Chloride [Moles/Vol] 94 mmol/L Low 98-107 [facility] Comment on above: Order Comment: Speci men Type: BLOOD SPECIMENOrdering Facility: [facility] Address: [address] [place] [address] Performed By: #### 1 0886-0, 2132-01, , 2283-12 ####[facility] [id number] [place] [address] [place] CO2 [Moles/Vol] 26 mmol/L Normal 22-30 [facility] Comment on above: Order Comment: Speci men Type: BLOOD SPECIMENOrdering Facility: [facility] Address: [address] [place] [address] Performed By: #### 1 0886-0, 9, 58638-2, 8 ####[facility] [id number] [place] [address] [place] Creatinine [Mass/Vol] 1.17 mg/dL Normal 0.73-1.22 [facility] Comment on above: Order Comment: Charlene de[place] Type: BLOOD SPECIMENOrdering Facility: [facility] Address: [address] [place] [address] Performed By: #### 1 0886-0, 9, 27691-2, 8 ####[facility] [id number] [place] [address] [place] Creatinine and Glomerular filtration rate.predicted panel (S/P/Bld) 67 mL/min/1.73m??? Normal >=60 [facility] Comment on above: Order Comment: Charlene [place] Type: BLOOD SPECIMENOrdering Facility: [facility] Address: [address] [place] [address] Result Comment: Stormy mated Glomerular Filtration Rate (eGFR) is calculated using the 2020 CKD-EPI creatinine equation. This equation utilizes serum creatinine, sex, and age as parameters. The creatinine assay has traceable calibration to isotope dilution-mass spectrometry. Refer to KDIGO guidelines for clinical interpretation. In patients with unstable renal function, e.g. those with acute kidney injury, the eGFR may not accurately reflect actual GFR. Performed By: #### 1 0886-0, 9, 57231-2, 8 ####[facility] [id number] [place] [id number] [place] Glucose [Mass/Vol] 103 mg/dL High 74-99 [facility] Comment on above: Order Comment: Charlene [place] Type: BLOOD SPECIMENOrdering Facility: [facility] Address: [address] [place] [address] Result Comment: The [place] [employer] Association (ADA) provides guidance for cutoff values for fasting glucose and random glucose. The ADA defines fasting as no caloric intake for at least 8 hours. Fasting plasma glucose results between 100 to 125 mg/dL indicate increased risk for diabetes (prediabetes). Fasting plasma glucose results greater than or equal to 126 mg/dL meet the criteria for diagnosis of diabetes. In the absence of unequivocal hyperglycemia, results should be confirmed by repeat testing. In a patient with classic symptoms of hyperglycemia or hyperglycemic crisis, random plasma glucose results greater than or equal to 200 mg/dL meet the criteria for diagnosis of diabetes. Reference: Standards of Medical Care in Diabetes 2016, [place] [employer]. Diabetes Care. 2016.39(Suppl 1). Performed By: #### 1 0886-0, 2132-01, , 2283-12 ####[facility] [id number] [place] [address] [place] Potassium [Moles/Vol] 4.5 mmol/L Normal 3.7-5.1 [facility] Comment on above: Order Comment: Speci men Type: BLOOD SPECIMENOrdering Facility: [facility] Address: [address] [place] [address] Performed By: #### 1 0886-0, 2132-01, , 2283-12 ####[facility] LABIA [id number] [place] [address] [place] Protein [Mass/Vol] 7.5 g/dL Normal 6.3-8.0 [facility] Comment on above: Order Comment: Charlene [place] Type: BLOOD SPECIMENOrdering Facility: [facility] Address: [address] [place] [address] Performed By: #### 1 0886-0, 2132-01, , 2283-12 ####[facility] [id number] [place] [address] [place] Sodium [Moles/Vol] 131 mmol/L Low 136-144 [facility] Comment on above: Order Comment: Sadei men Type: BLOOD SPECIMENOrdering Facility: [facility] Address: [address] [place] [address] Performed By: #### 1 0886-0, 2132-01, , 2283-12 ####[facility] [id number] [place] [id number] [place] Urea nitrogen [Mass/Vol] 6 mg/dL Low 9-24 [facility] Comment on above: Order Comment: Speci men Type: BLOOD SPECIMENOrdering Facility: [facility] Address: [address] [place] [address] Performed By: #### 1 0886-0, 9, 52513-5, 8 ####[facility] LABIA [id number] [place] [id number] [place] Folate SerPl-mCncon 06-21-19 25 Folate [Mass/Vol] 18.3 ng/mL Normal >4.7 [facility] Comment on above: Order Comment: Speci men Type: BLOOD SPECIMENOrdering Facility: [facility] Address: [address] [place] [address] Performed By: #### 1 0886-0, 2132-01, 27912-9, 8 ####[facility] [id number] [place] [address] [place] Free PSA [Mass/Vol]on 2024 Free PSA/Total PSA [Mass fraction] 24 % Normal [facility] Comment on above: Order Comment: Speci men Type: BLOOD SPECIMENOrdering Facility: [facility] Address: [address] [place] [address] Result Comment: Tota l and free PSA test methodology used is the Electrochemiluminescence Immunoassay by [employer]. Total or free PSA values by differing methodologies cannot be interchanged. The below table lists the probability of finding prostate cancer upon needle biopsy, for men 50 years or older and total PSA concentrations from 4.0-10.0 ng/mL. Results should be interpreted within the broader clinical context. Free PSA(%) 50-59 years 60-69 years >69 years <11 49.2% 57.5% 64.5% 11-18 26.9% 33.9% 40.8% 19-25 18.3% 23.9% 29.7% >25 9.1% 12.2% 15.8% Performed By: #### 1 0886-0, 9, 17587-9, 2283-12 ####[facility] LABIA [id number] [place] [address] [place] Prostate specific Ag [Mass/Vol] 2.27 ng/mL Normal <2.60 [facility] Comment on above: Order Comment: Speci men Type: BLOOD SPECIMENOrdering Facility: [facility] Address: [address] [place] [address] Result Comment: Tota l PSA test methodology used is the Electrochemiluminescence Immunoassay by [employer]. Total PSA values by differing methodologies cannot be interchanged. Performed By: #### 1 0886-0, 2132-01, , 2283-12 ####[facility] [id number] [place] [address] [place] VITAMIN B1 (THIAMINE), WHOLE BLOODon 06-21-2024 Thiamine (Bld) [Moles/Vol] 340.9 nmol/L High 84.3-213.3 [facility] Comment on above: Order Comment: Speci men Type: BLOOD SPECIMENOrdering Facility: [facility] Address: [address] [place] [address] Result Comment: This assay measures the concentration of thiamine diphosphate (TDP), the primary active form of vitamin B1. Approximately 90 percent of vitamin B1 present in whole blood is TDP. Thiamine and thiamine monophosphate, which comprise the remaining 10 percent, are not measured. This test was developed, and its performance characteristics determined by the [facility] Department of Pathology and Laboratory Medicine. It has not been cleared or approved by the FDA. The [facility] Department of Pathology and Laboratory Medicine is regulated under CLIA as qualified to perform high-complexity testing. This test is used for clinical purposes. It should not be regarded as investigational or for research. Performed By: #### B 1WB ####[facility] [id number] [place] [address] [place] Vit B12 SerPl-mCncon 025 Cobalamin (Vitamin B12) [Mass/Vol] pg/mL High 232-1245 [facility] Comment on above: Order Comment: Speci men Type: BLOOD SPECIMENOrdering Facility: [facility] Address: [address] [place] [address] Performed By: #### 1 0886-0, 2132-9, 45726-3, 2284-8 ####[facility] [id number] [place] [id number] [facility] CNPNon 02-29-2024 CNPN Telephone (4CQ) YARITZA HENDERSON ([id number]) 1955 Date Time Provider Department 02/29/24 FREDRICK FELICIANO 4CQ During your visit today, we recorded the following information about you: MehdiVanessa 02/29/2024 10:02 AM Signed Pt called in thinking he needs to have routine lab work. Please advise and call patient regarding. Thank you Nadia Leyva MA 02/29/2024 10:07 AM Signed Patients next routine follow up is in May. Any labs prior to visit? SIMON Velázquez Rayanne, PA-C 02/29/2024 10:34 AM Signed Remind him of the PSA to do in early march I also placed labs for May's visit. Thanks. respirationSteve Martinez LPN 02/29/2024 11:26 AM Signed Spoke with pt and reviewed Erum's message. Pt verbalizes understanding. Steve Ochoa LPN Allergies As of Date: 02/29/2024 (No Known Allergies) Date Reviewed: 12/27/2023 Reviewed by: Steve Ochoa LPN - Fully Assessed Reason for Visit: Patient Question [7177] Primary Visit Diagnosis:Hypertension, essential [I10] Other Visit Diagnoses:Anemia, unspecified type [D64.9] Folate deficiency [E53.8] Elevated LFTs [R79.89] Hyponatremia [E87.1] Alcohol abuse [F10.10] Fatty liver, alcoholic [K70.0] Order(s):COMPREHENSIVE METABOLIC PANEL [SQCMP] Order #: [id number] FUTURE VITAMIN B1 (THIAMINE), WHOLE BLOOD [SQB1WB] Order #: [id number] FUTURE URINALYSIS, WITH MICROSCOPIC [SQUAWMIC] Order #: [id number] FUTURE VITAMIN B12 [SQB12] Order #: [id number] FUTURE COMPLETE BLOOD COUNT AND DIFFERENTIAL [SQCBCDIF] Order #: [id number] FUTURE FOLATE, SERUM [SQSERFOL] Order #: [id number] FUTURE Prescriptions as of 02/29/2024 - cyanocobalamin (VITAMIN B-12) 500 mcg tablet Take 1 tablet by mouth once daily. - thiamine (VITAMIN B1) 50 mg tablet Take 1 tablet by mouth once daily. - folic acid 400 mcg tablet take 1 tablet by mouth once daily. - amLODIPine (NORVASC) 10 mg tablet take 1 tablet by mouth once daily - lisinopril (ZESTRIL) 40 mg tablet take 1 tablet by mouth twice daily - acetaminophen (TYLENOL EXTRA STRENGTH) 500 mg tablet Take 2 tablets by mouth every 8 hours as needed for pain (for pain.). - acetaminophen (TYLENOL) 325 mg tablet Take 3 tablets by mouth every 6 hours as needed for pain. - Blood Pressure Monitor kit Take blood pressure daily DX: hypertension - COMPOUNDED PRESCRIPTION Take blood pressure daily and write it down Problem List As Of Date 02/29/2024 Noted Resolved Hypertension, essential [I10] 02/07/2018 Alcohol abuse [F10.10] 04/25/2018 Ex-smoker [Z87.891] 04/25/2018 Elevated LFTs [R79.89] 04/25/2018 Proteinuria [R80.9] 04/25/2018 11/19/2021 Fatty liver, alcoholic [K70.0] 05/08/2018 Medicare annual wellness visit, subsequent [Z00*08/01/2019 Benign prostatic hyperplasia without lower urin*08/01/2019 Prostate disorder [N42.9] 08/01/2019 Anemia [D64.9] 08/01/2019 Elevated alkaline phosphatase level [R74.8] 06/16/2021 Advance directive discussed with patient [Z71.8*11/19/2021 Hyponatremia [E87.1] 06/08/2022 Closed fracture of spinous process of cervical *07/06/2022 12/16/2022 Closed displaced fracture of seventh cervical v*07/06/2022 12/16/2022 Subluxation of c6/C7 cervical vertebrae, initia*07/06/2022 12/16/2022 Spinal stenosis in cervical region [M48.02] 07/17/2022 Closed fracture of first thoracic vertebra with*07/17/2022 12/16/2022 Folate deficiency [E53.8] 12/23/2022 PVD (peripheral vascular disease) (HCC) [I73.9] 01/01/2023 Elevated PSA [R97.20] 01/06/2024 Encounter Status:Closed by STEVE OCHOA on 02/29/[address] [facility] 02-07-2024 [facility] Tele[facility] ([facility]) YARITZA HENDERSON ([id number]) 1955 M Date Time Provider Department 02/07/24 ERUM CASTANEDA [facility] During your visit today, we recorded the following information about you: Erum Castaneda PA-C 02/07/2024 1:24 PM Signed Let patient know that alk phos level is still elevated but mitochondrial antibody is negative. We will continue to monitor. KYLAH Bryant Sherill A, LPN 02/07/2024 2:04 PM Signed Pt notified of same, verbalizes understanding. Pt advises he had previously been told to Take his vitamin B12 and B1 every other day. States it is getting confusing doing this. Questions if he can go back to once a day whch was his previous dosage. Pt advises he will come in towards the end of the month to recheck prostate labs. CARINE Muhammad Rayanne, PA-C 02/07/2024 2:15 PM Signed I will send in lower dose of the b12 that he can take daily. He can go back to taking the b1 daily. The reason I suggested every other day was because his levels are high. Toxicity with these vitamins are very rare and He's just peeing out the excess. If he's okay with taking more than he may need, that is fine. Thanks KYLAH Bryant Sherill A, LPN 02/07/2024 2:24 PM Signed Pt notified of Erum's message and instructions, pt verbalizes understanding. Steve Ochoa LPN Allergies As of Date: 02/07/2024 (No Known Allergies) Date Reviewed: 12/27/2023 Reviewed by: Steve Ochoa LPN - Fully Assessed Reason for Visit: Results [95] Order(s):cyanocobalamin (VITAMIN B-12) 500 mcg tabletTake 1 tablet by mouth once daily.Disp: 30 tabletRfl: 5 thiamine (VITAMIN B1) 50 mg tabletTake 1 tablet by mouth once daily.Disp: 30 tabletRfl: 5 Prescriptions as of 02/07/2024 - cyanocobalamin (VITAMIN B-12) 500 mcg tablet Take 1 tablet by mouth once daily. - thiamine (VITAMIN B1) 50 mg tablet Take 1 tablet by mouth once daily. - folic acid 400 mcg tablet take 1 tablet by mouth once daily. - amLODIPine (NORVASC) 10 mg tablet take 1 tablet by mouth once daily - lisinopril (ZESTRIL) 40 mg tablet take 1 tablet by mouth twice daily - acetaminophen (TYLENOL EXTRA STRENGTH) 500 mg tablet Take 2 tablets by mouth every 8 hours as needed for pain (for pain.). - acetaminophen (TYLENOL) 325 mg tablet Take 3 tablets by mouth every 6 hours as needed for pain. - Blood Pressure Monitor kit Take blood pressure daily DX: hypertension - COMPOUNDED PRESCRIPTION Take blood pressure daily and write it down Problem List As Of Date 02/07/2024 Noted Resolved Hypertension, essential [I10] 02/07/2018 Alcohol abuse [F10.10] 04/25/2018 Ex-smoker [Z87.891] 04/25/2018 Elevated LFTs [R79.89] 04/25/2018 Proteinuria [R80.9] 04/25/2018 11/19/2021 Fatty liver, alcoholic [K70.0] 05/08/2018 Medicare annual wellness visit, subsequent [Z00*08/01/2019 Benign prostatic hyperplasia without lower urin*08/01/2019 Prostate disorder [N42.9] 08/01/2019 Anemia [D64.9] 08/01/2019 Elevated alkaline phosphatase level [R74.8] 06/16/2021 Advance directive discussed with patient [Z71.8*11/19/2021 Hyponatremia [E87.1] 06/08/2022 Closed fracture of spinous process of cervical *07/06/2022 12/16/2022 Closed displaced fracture of seventh cervical v*07/06/2022 12/16/2022 Subluxation of c6/C7 cervical vertebrae, initia*07/06/2022 12/16/2022 Spinal stenosis in cervical region [M48.02] 07/17/2022 Closed fracture of first thoracic vertebra with*07/17/2022 12/16/2022 Folate deficiency [E53.8] 12/23/2022 PVD (peripheral vascular disease) (HCC) [I73.9] 01/01/2023 Elevated PSA [R97.20] 01/06/2024 Prescriptions ordered this encounter Disp Refills Start End CYANOCOBALAMIN (VIT B-12) 500 MCG TA* 30 t* 5 02/07/2024 Route: ORAL Sig: Take 1 tablet by mouth once daily. THIAMINE HCL (VITAMIN B1) 50 MG TABL* 30 t* 5 02/07/2024 Route: ORAL Sig: Take 1 tablet by mouth once daily. Medications Discontinued During This Encounter Prescriptions - thiamine (VITAMIN B1) 50 mg tablet (Discontinued) Take 1 tablet by mouth every other afternoon. - cyanocobalamin (VITAMIN B-12) 1,000 mcg tab (Discontinued) Take 1 tablet by mouth every other afternoon. Encounter Status:Closed by STEVE OCHOA on 02/07/24 Normal [facility] ALP SerPl-cCncon 02-02-2024 ALP [Catalytic activity/Vol] 150 U/L High 38-113 [facility] Comment on above: Order Comment: Speci men Type: BLOOD SPECIMEN Ordering Facility: [facility] Address: [address] [place] [address] Performed By: #### 6 768-6 #### [facility] CLIA [id number] [address] [place] [address] [place] Mitochondria Ab IF Ql (S)on 02-02-2024 Mitochondria M2 Ab IA Qn (S) 2.8 Units Normal <=20.0 [facility] Comment on above: Order Comment: Speci men Type: BLOOD SPECIMENOrdering Facility: [facility] Address: [address] [place] [address] Performed By: #### 1 7284-1 ####[facility] [id number] [place] [address] [place] Mitochondria M2 Ab Ql (S) Negative Normal Negative [facility] Comment on above: Order Comment: Speci men Type: BLOOD SPECIMENOrdering Facility: [facility] Address: [address] [place] [address] Result Comment: Anti -mitochondrial antibody test is used as an aid in diagnosis of primary biliary cholangitis. Clinical correlation is required. Performed By: #### 1 7284-1 ####[facility] [id number] [place] [address] [place] US Abdomen RUQon 01-13-2024 IMPRESSION: Normal sonographic appearance of the right upper quadrant. Visualization is suboptimal due to overlying bowel gas Splicing Machine Operator: SWATI Transcribe Date/Time: Jan 13 2024 3:38P Dictated by : MARIO IBARRA MD This examination was interpreted and the report reviewed and electronically signed by: MARIO IBARRA MD on Jan 13 2024 4:03PM [facility] DIVISION OF RADIOLOGY * * *Final Report* * * DATE OF EXAM: Jan 13 2024 11:03AM WRU 1032 - US ABD RIGHT UPPER QUADRANT / PROCEDURE REASON: Alkaline phosphatase elevation * * * * Physician Interpretation * * * * EXAMINATION: RIGHT UPPER QUADRANT ULTRASOUND CLINICAL HISTORY: Elevated alkaline phosphatase TECHNIQUE: Sonography of the right upper quadrant was performed. Images were obtained and stored in a permanent archive. MQ: URUQ_2 COMPARISON: CT scans of 12/31/2022. RESULT: Pancreas: Not seen due to overlying bowel gas Liver: Echotexture: Normal, homogeneous. Echogenicity: Normal Surface contour: Smooth Lesions: None. Biliary: No intrahepatic biliary duct dilation. CBD: 0.3 cm at the hilum. Gallbladder: Normal caliber -Contents: No cholelithiasis -Wall: Normal -Other: No pericholecystic fluid. Right Kidney: No hydronephrosis. Ascites: None. DIVISION OF RADIOLOGY Provider, [facility] - 01/13/2024 * * *Final Report* * * DATE OF EXAM: Jan 13 2024 11:03AM WRU 1032 - US ABD RIGHT UPPER QUADRANT / PROCEDURE REASON: Alkaline phosphatase elevation * * * * Physician Interpretation * * * * EXAMINATION: RIGHT UPPER QUADRANT ULTRASOUND CLINICAL HISTORY: Elevated alkaline phosphatase TECHNIQUE: Sonography of the right upper quadrant was performed. Images were obtained and stored in a permanent archive. MQ: URUQ_2 COMPARISON: CT scans of 12/31/2022. RESULT: Pancreas: Not seen due to overlying bowel gas Liver: Echotexture: Normal, homogeneous. Echogenicity: Normal Surface contour: Smooth Lesions: None. Biliary: No intrahepatic biliary duct dilation. CBD: 0.3 cm at the hilum. Gallbladder: Normal caliber -Contents: No cholelithiasis -Wall: Normal -Other: No pericholecystic fluid. Right Kidney: No hydronephrosis. Ascites: None. IMPRESSION IMPRESSION: Normal sonographic appearance of the right upper quadrant. Visualization is suboptimal due to overlying bowel gas Splicing Machine Operator: [facility] Transcribe Date/Time: Jan 13 2024 3:38P Dictated by : MARIO IBARRA MD This examination was interpreted and the report reviewed and electronically signed by: MARIO IBARRA MD on Jan 13 2024 4:03PM EST [facility] Radiology Study observation (narrative) [facility] US Abdomen RUQOrdered By: Cc f Provider on 01-13-2024 [facility] CBC W Auto Differential pane l (Bld)on 12-27-2023 Basophils (Bld) [#/Vol] 0.08 10*3/uL [facility] Basophils/100 WBC (Bld) 0.9 % [facility] Differential cell count method Nom (Bld) Auto [facility] Eosinophils (Bld) [#/Vol] 0.19 10*3/uL [facility] Eosinophils/100 WBC (Bld) 2.1 % [facility] Erythrocyte distribution width (RBC) [Ratio] 12.5 % 11.5 - 15.0 % [facility] Hematocrit (Bld) [Volume fraction] 45.8 % 39.0 - 51.0 % [facility] Hemoglobin (Bld) [Mass/Vol] 15.7 g/dL 13.0 - 17.0 g/dL [facility] Immature granulocytes (Bld) [#/Vol] 0.03 10*3/uL [facility] Immature granulocytes/100 WBC (Bld) 0.3 % [facility] Interpretation and review of laboratory results Abnormal [facility] Lymphocytes (Bld) [#/Vol] 1.29 10*3/uL [facility] Lymphocytes/100 WBC (Bld) 14.5 % [facility] MCH (RBC) [Entitic mass] 32.2 pg 26.0 - 34.0 pg [facility] MCHC (RBC) [Mass/Vol] 34.3 g/dL 30.5 - 36.0 g/dL [facility] MCV (RBC) [Entitic vol] 94.0 fL 80.0 - 100.0 fL [facility] Monocytes (Bld) [#/Vol] 1.44 10*3/uL High [facility] Monocytes/100 WBC (Bld) 16.2 % [facility] Neutrophils (Bld) [#/Vol] 5.86 10*3/uL [facility] Neutrophils/100 WBC (Bld) 66.0 % [facility] Nucleated RBC (Bld) [#/Vol] [facility] Nucleated RBC/100 WBC (Bld) [Ratio] 0.0 % /100 WBC [facility] Platelet mean volume (Bld) [Entitic vol] 8.1 fL Low 9.0 - 12.7 fL [facility] Platelets (Bld) [#/Vol] 341 10*3/uL [facility] RBC (Bld) [#/Vol] 4.87 10*6/uL 4.20 - 6.0 0 m/uL [facility] WBC (Bld) [#/Vol] 8.89 10*3/uL [facility] Cobalamin (Vitamin B12) [Mas s/Vol]on 12-27-2023 Interpretation and review of laboratory results Abnormal [facility] Comprehensive metabolic 2000 panelon 12-27-2023 Albumin [Mass/Vol] 4.2 g/dL 3.9 - 4.9 g/dL [facility] ALP [Catalytic activity/Vol] 154 U/L High 38 - 113 U/L [facility] ALT [Catalytic activity/Vol] 10 U/L 10 - 54 U/L [facility] Anion gap [Moles/Vol] 15 mmol/L 8 - 15 mmol/L [facility] AST [Catalytic activity/Vol] 20 U/L 14 - 40 U/L [facility] Bilirubin [Mass/Vol] 1.0 mg/dL 0.2 - 1.3 mg/dL [facility] Calcium [Mass/Vol] 9.7 mg/dL 8.5 - 10. 2 mg/dL [facility] Chloride [Moles/Vol] 92 mmol/L Low 98 - 107 mmol/L [facility] CO2 [Moles/Vol] 22 mmol/L 22 - 30 mmol/L [facility] Creatinine [Mass/Vol] 1.11 mg/dL 0.73 - 1.22 mg/dL [facility] GFR/1.73 sq M.predicted among non-blacks MDRD (S/P/Bld) [Vol rate/Area] 71 mL/min/{1.73_m2} - PINF [facility] Comment on above: Estimated Glomerular Filtration Rate (eGFR) is calculated using the 2020 CKD-EPI creatinine equation. This equation utilizes serum creatinine, sex, and age as parameters. The creatinine assay has traceable calibration to isotope dilution-mass spectrometry. Refer to KDIGO guidelines for clinical interpretation. In patients with unstable renal function, e.g. those with acute kidney injury, the eGFR may not accurately reflect actual GFR. Glucose [Mass/Vol] 90 mg/dL 74 - 99 mg/dL [facility] Comment on above: The [place] Diab[employer] s Association (ADA) provides guidance for cutoff values for fasting glucose and random glucose. The ADA defines fasting as no caloric intake for at least 8 hours. Fasting plasma glucose results between 100 to 125 mg/dL indicate increased risk for diabetes (prediabetes). Fasting plasma glucose results greater than or equal to 126 mg/dL meet the criteria for diagnosis of diabetes. In the absence of unequivocal hyperglycemia, results should be confirmed by repeat testing. In a patient with classic symptoms of hyperglycemia or hyperglycemic crisis, random plasma glucose results greater than or equal to 200 mg/dL meet the criteria for diagnosis of diabetes. Reference: Standards of Medical Care in Diabetes 2016, [place] [employer]. Diabetes Care. 2016.39(Suppl 1). Interpretation and review of laboratory results Abnormal [facility] Potassium [Moles/Vol] 4.9 mmol/L 3.7 - 5.1 mmol/L [facility] Protein [Mass/Vol] 7.8 g/dL 6.3 - 8.0 g/dL [facility] Sodium [Moles/Vol] 129 mmol/L Low 136 - 144 mmol/L [facility] Urea nitrogen [Mass/Vol] 8 mg/dL Low 9 - 24 mg/dL [facility] FOLATE, SERUMon 12-27-2023 Folate [Mass/Vol] 17.3 ng/mL 4.7 - PINF ng/mL [facility] Folate [Mass/Vol]on 12-27-19 Interpretation and review of laboratory results Normal [facility] LIPID PANEL, NONFASTINGon Cholesterol [Mass/Vol] 129 mg/dL NINF - 200 mg/dL [facility] Comment on above: <200 mg/dL, Desirabl e 200-239 mg/dL, Borderline high >239 mg/dL, High HDL Cholesterol, Nonfasting 82 mg/dL 39 - PINF mg/dL [facility] Comment on above: 40-59 mg/dL, Accepta ble >59 mg/dL, High: Negative risk factor for coronary heart disease <40 mg/dL, Low: Positive risk factor for coronary heart disease Interpretation and review of laboratory results Normal [facility] LDL Cholesterol, Nonfasting 35 mg/dL NINF - 100 mg/dL [facility] Comment on above: <100 mg/dL, Optimal 100-129 mg/dL, Near optimal/above optimal 130-159 mg/dL, Borderline high 160-189 mg/dL, High >189 mg/dL, Very high Secondary prevention optimal LDL Cholesterol levels are recommended to be < 70 mg/dL LDL/HDL Ratio, Nonfasting 0.43 mg/dL NINF - 2.54 mg/dL [facility] Comment on above: Reference: 1. National Cholesterol Education Program ATP III Guideline At-A-Glance Quick Desk Reference: National Heart, Lung, and Blood [place]. National Institutes of Health. 2001: NIH Publication No. 01-3305. 2. An International Atherosclerosis Society position paper: global recommendations for the management of dyslipidemia: executive summary, Atherosclerosis. 2014: 232(2):410-413. Non HDL Cholesterol, Nonfasting 47 mg/dL NINF - 130 mg/dL [facility] Comment on above: <130 mg/dL, Optimal 130-159 mg/dL, Near optimal/above optimal 160-189 mg/dL, Borderline high 190-219 mg/dL, High >219 mg/dL, Very high Secondary prevention optimal non HDL Cholesterol levels are recommended to be <100 mg/dL Total Chol/HDL Ratio, Nonfasting 1.57 mg/dL NINF - 5.10 mg/dL [facility] Triglycerides, Nonfasting 59 mg/dL NINF - 150 mg/dL [facility] Comment on above: <150 mg/dL, Normal 150-199 mg/dL, Borderline high 200-499 mg/dL, High >499 mg/dL, Very high VLDL Cholesterol, Nonfasting 12 mg/dL NINF - 30 mg/dL [facility] No Panel Informationon 12-[address] [facility] PROSTATE-SPECIFIC ANTIGEN DI AGNOSTICon 12-27-2023 Prostate specific Ag [Mass/Vol] 4.20 ng/mL High NINF - 2.60 ng/mL [facility] Comment on above: Total PSA test metho dology used is the Electrochemiluminescence Immunoassay by [employer]. Total PSA values by differing methodologies cannot be interchanged. For an individual patient, the significance of a PSA level should be interpreted in a broad clinical context, including age, race, family history, digital rectal exam, prostate size, results of prior testing (prostate biopsy, free PSA, PCA3), and use of 5-alpha reductase inhibitors. Considering the high incidence of asymptomatic cancer in the general population that may not pose an ultimate risk to a patient, the decision to recommend urological evaluation or prostate biopsy should be individualized after consideration of all these factors. REFERENCE: Gary Zhou M.D., M.P.H., Az Bowden M.D., Ph.D., Amari Forbes M.D., Deborah Hernandez M.P.H., Dhara Braxton Sc.D. Effect of Verification Bias on Screening for Prostate Cancer by Measurement of Prostatic Specific Antigen. N Engl J Med 2003,349:335-42. Prostate specific Ag [Mass/V ol]on 12-27-2023 Interpretation and review of laboratory results Abnormal [facility] VITAMIN B12on 12-27-2023 Cobalamin (Vitamin B12) [Mass/Vol] 1961 pg/mL High 232 - 1245 pg/mL [facility] No Panel Informationon 04-07 Radiology Study observation (narrative) [facility] XR Lumbar spine AP and Later perfecto 04-07-2023 IMPRESSION: Mild dextroscoliosis of the upper lumbar spine with multilevel degenerative changes, as described. No acute process seen. Splicing Machine Operator: [facility] Transcribe Date/Time: Apr 07 2023 11:00A Dictated by : TEOFILO CUEVAS MD This examination was interpreted and the report reviewed and electronically signed by: TEOFILO CUEVAS MD on Apr 07 2023 11:24AM [facility] DIVISION OF RADIOLOGY * * *Final Report* * * DATE OF EXAM: Apr 07 2023 11:06AM WOX 5229 - XR LUMBAR 2V AP/LAT / PROCEDURE REASON: Acute bilateral low back pain without sciatica * * * * Physician Interpretation * * * * History: Acute back pain FINDINGS: AP and lateral views of the lumbar spine have been obtained. There is slight dextroscoliosis of the upper lumbar spine. Associated degenerative changes with intervertebral joint space narrowing and associated spurring noted within the lower lumbar spine at the L3/4, and L4/5 levels predominantly. There is facet joint arthropathy of the lower 3 levels. Vertebral heights are maintained. Prevertebral soft tissues are unremarkable. DIVISION OF RADIOLOGY Provider, Debbi Amos - 04/07/2023 * * *Final Report* * * DATE OF EXAM: Apr 07 2023 11:06AM WOX 5229 - XR LUMBAR 2V AP/LAT / PROCEDURE REASON: Acute bilateral low back pain without sciatica * * * * Physician Interpretation * * * * History: Acute back pain FINDINGS: AP and lateral views of the lumbar spine have been obtained. There is slight dextroscoliosis of the upper lumbar spine. Associated degenerative changes with intervertebral joint space narrowing and associated spurring noted within the lower lumbar spine at the L3/4, and L4/5 levels predominantly. There is facet joint arthropathy of the lower 3 levels. Vertebral heights are maintained. Prevertebral soft tissues are unremarkable. IMPRESSION IMPRESSION: Mild dextroscoliosis of the upper lumbar spine with multilevel degenerative changes, as described. No acute process seen. Splicing Machine Operator: [facility] Transcribe Date/Time: Apr 07 2023 11:00A Dictated by : TEOFILO CUEVAS MD This examination was interpreted and the report reviewed and electronically signed by: TEOFILO CUEVAS MD on Apr 07 2023 11:24AM [facility] XR Thoracic spine AP and Lat [facility] 04-07-2023 IMPRESSION: AP, late ral, and swimmer's views of the thoracic spine have been obtained. AP view demonstrates dextroscoliosis of the upper thoracic spine with levoscoliosis of the lower thoracic spine. Associated multilevel marginal spurring. Vertebral heights appear maintained. Prevertebral soft tissues are unremarkable. Splicing Machine Operator: [facility] Transcribe Date/Time: Apr 07 2023 11:00A Dictated by : TEOFILO CUEVAS MD This examination was interpreted and the report reviewed and electronically signed by: TEOFILO CUEVAS MD on Apr 07 2023 11:23AM [facility] DIVISION OF RADIOLOGY * * *Final Report* * * DATE OF EXAM: Apr 07 2023 11:06AM WOX 5262 - XR THORACIC 2V AP/LAT / PROCEDURE REASON: Acute bilateral low back pain without sciatica * * * * Physician Interpretation * * * * History: Acute back pain FINDINGS/ DIVISION OF RADIOLOGY Provider, Debbi Amos - 04/07/2023 * * *Final Report* * * DATE OF EXAM: Apr 07 2023 11:06AM WOX 5262 - XR THORACIC 2V AP/LAT / PROCEDURE REASON: Acute bilateral low back pain without sciatica * * * * Physician Interpretation * * * * History: Acute back pain FINDINGS/ IMPRESSION IMPRESSION: AP, lateral, and swimmer's views of the thoracic spine have been obtained. AP view demonstrates dextroscoliosis of the upper thoracic spine with levoscoliosis of the lower thoracic spine. Associated multilevel marginal spurring. Vertebral heights appear maintained. Prevertebral soft tissues are unremarkable. Splicing Machine Operator: [facility] Transcribe Date/Time: Apr 07 2023 11:00A Dictated by : TEOFILO CUEVAS MD This examination was interpreted and the report reviewed and electronically signed by: TEOFILO CUEVAS MD on Apr 07 2023 11:23AM EST [facility] XR Thoracic spine AP and Lat eralOrdered By: [facility] Provider on 04-07-2023 [facility] CTA ABD/PEL LOWER EXTREM WO/ W IVCONon 12-31-2022 [facility] CNOVon 10-12-2022 CNOV Office Visit (NEAGCL M) YARITZA HENDERSON ([id number]) 1955 M Date Time Provider Department 10/12/22 3:45 PM IVANIA ESTRADA I NEAGCLM During your visit today, we recorded the following information about you: Pulse Blood pressure Weight Height 72/minute 138/76 82.4 kg 1.778 m Ivania Estrada MD 10/12/2022 3:57 PM Signed NEUROSURGERY FOLLOW UP OFFICE NOTE Chair, Clinical Neurosciences Director, Spinal Neurosurgery [facility] Date of visit: October 12, 2022 Patient Name: Mr.Ronald Winsome Henderson Date of : 1955 Current Age: [age] year old Sex: male MRN/E# [id number] Last Office Visit: 08/18/2022 Chief Complaint: Patient presents with: Established Patient Past Medical/Surgical History: Yaritza Henderson is a 66 year old, male with a history of HTN, ETOH abuse, fatty liver. He is a former smoker. HPI: Patient presented to [facility] on 07/06/2022, status post fall down 13 stairs while intoxicated 2 days prior with reports of neck pain and mid thoracic pain. He denied pain in upper or lower extremities. He denied weakness in extremities. Trauma work-up demonstrated C4 spinous process fracture, C7 vertical body fracture, C6/C7 right facet fracture with subluxation, T1 and T2 subacute compression. CTA head and neck unremarkable for acute vascular injury. Neurosurgery consulted,Dr. Estrada. Nonoperative conservative treatment recommended with LOGISTICS PROGRAM MANAGER collar at all times. He was discharged on 07/08/2022 with instructions to follow-up with neurosurgery in 2 weeks time. He was seen in the office on 07/17/2022 and reported doing well following hospital discharge. He denied pain in cervical or upper extremities. He denied upper extremity weakness, paresthesia, or gait difficulties. MRI of cervical spine during hospitalization was reviewed, evidence of severe central canal stenosis at C5/C6. On exam, he was mildly myelopathic. Discussed need for adequate healing time of fractures. He reported compliance with LOGISTICS PROGRAM MANAGER collar and activity restrictions. He was recommended use of Tylenol and Zanaflex for symptom control. He was asked to follow-up in 4 weeks time with repeat cervical and thoracic imaging. He was last seen on 08/18/2022 where he was 6 weeks from initial injury and had been doing well since prior visit. He denied neck or back pain, weakness or paresthesia. He reported compliance with LOGISTICS PROGRAM MANAGER collar and activity restrictions. His cervical and thoracic x-rays had been stable. He was mildly myelopathic on exam. He was requested to follow up in [address] scans of thoracic and cervical spine to see if LOGISTICS PROGRAM MANAGER brace could be removed. The patient presents to the office today to review CT imaging. He denies pain at this time. He denies new weakness or numbness/tingling. He has been compliant with wearing LOGISTICS PROGRAM MANAGER brace. He is not taking anything for pain for about 6 weeks. He He is here for evaluation and plan of care. Symptoms: patient denies pain PREVIOUS CONSERVATIVE TREATMENTS: LOGISTICS PROGRAM MANAGER collar Zanaflex Tylenol PREVIOUS SURGERY: None PAIN EVALUATION No data found in the last 1 encounters. PAST MEDICAL HISTORY Diagnosis Date Advance directive discussed with patient 11/19/2021 Discussed 10/2021 Alcohol abuse 04/25/2018 Alcohol abuse 04/25/2018 12 pck per day since around 2014 (maybe longer) Benign prostatic hyperplasia without lower urinary tract symptoms 08/01/2019 Elevated alkaline phosphatase level 06/16/2021 Alcoholic liver disease Elevated LFTs 04/25/2018 Ex-smoker 04/25/2018 Started at 7 yo, 1/2-1 PPD and quit at age 19 Ex-smoker 04/25/2018 Started at 7 yo, 1/2-1 PPD and quit at age 19 Fatty liver, alcoholic 05/08/2018 History of right shoulder fracture Hypertension, essential 02/07/2018 Medicare annual wellness visit, subsequent 08/01/2019 :Medicare Part B: 09/28/2018 Last done: 08/01/2019 Tibia/fibula fracture PAST SURGICAL HISTORY Procedure Laterality Date 2D ECHO (EXEP) 06/21/2020 EF=60%, mild [place] dysf, 1+ [place] COLONOSCOPY 01/09/2019 Dr. Gonzalez, repeat 10 yrs REMV CATARACT EXTRACAP,INSERT LENS Bilateral Summer/fall of 2021 FAMILY HISTORY Problem Relation Age of Onset No Known Problems Mother when patient was 8 from accident No Known Problems Father No Known Problems Sister unsure of hx No Known Problems Brother doens't know hx No Known Problems Maternal Grandmother doesn't know hx No Known Problems Maternal Grandfather doesn't know hx No Known Problems Paternal Grandmother doesn't know hx No Known Problems Paternal Grandfather doesn't know hx Alzheimer's Disease No Family History Colon Cancer No Family History Prostate Cancer No Family History Coronary Artery Disease No Family History Diabetes No Family History Hypertension No Family History Hyperlipidemia No Family History Kidney Disease No Family History Seizures No Family H (more content not included)... Normal [facility] CT CERVICAL SPINE WO IVCONon 10-12-2022 CT CERVICAL SPINE WO IVCON * * *Final Report* * * DATE OF EXAM: Oct 12 2022 3:00PM A1C 0505 - CT CERVICAL SPINE WO IVCON / PROCEDURE REASON: multiple diagnoses * * * * Physician Interpretation * * * * EXAMINATION: CT CERVICAL SPINE WO IVCON, CT THORACIC SPINE WO IVCON CLINICAL HISTORY: Closed displaced fracture of seventh cervical vertebra with routine healing, unspecified fracture morphology, subsequent encounter Spinal stenosis in cervical region TECHNIQUE: Spiral, high resolution axial unenhanced images were obtained from the skull base to the thoracolumbar junction with sagittal and coronal planar reconstructions. MQ: CTCTWO_3 CT Radiation dose: Integrated Dose-Length Product (DLP) for this visit = 296.45 (accession [id number]), 827.07 (accession [id number]) mGy*cm. CT Dose Reduction Employed: Automated exposure control (AEC) COMPARISON: MRI cervical spine and thoracic spine on 07/06/2022. Cervical spine and thoracic spine radiographs on 08/18/2022. RESULT: CERVICAL: Counting reference: Craniocervical junction. Anatomic Variants: None. Alignment: No evidence of new spondylolisthesis. Bone marrow / fracture: Unchanged compression fracture of C7 vertebral body, with mild anterior vertebral body height loss. Persistent vertically oriented fracture line. Mild development of interval sclerosis. No new vertebral body height loss identified. Nonspecific right mastoid fluid is partially imaged. Degenerative changes: Multilevel degenerative changes of the cervical spine, as previously detailed on MRI cervical spine from 07/06/2022. THORACIC: Counting reference: Craniocervical and lumbosacral junctions For the purposes of this report, Assume the first normal thoracic rib is at the T1 level. Explosive Expert (topogram) images: Multiple right-sided rib fractures are only seen on home school liaison officer image. Alignment: No evidence of new spondylolisthesis. Bone marrow / fracture: Unchanged inferior endplate fracture involving T1 and T2 vertebral bodies. No evidence of vertebral body height loss. Unchanged the inferior endplate deformity of T10 vertebral body. IMPRESSION: CERVICAL: 1. Unchanged mild vertebral body height loss involving C7 vertebral body fracture, with persistent visible fracture line and interval development of sclerosis suggestive of partial interval healing. 2. Nonspecific right mastoid fluid is partially imaged. THORACIC: 1. Unchanged inferior endplate fracture involving T1 and T2 vertebral bodies. No evidence of vertebral body height loss. 2. Unchanged the inferior endplate deformity of T10 vertebral body. 3. Multiple right-sided rib fractures are only seen on the home school liaison officer image. Please refer to the previous chest imaging. Cervical Anatomic Variant: None. Assume 7 cervical vertebrae with counting from the craniocervical junction. Anatomic Thoracic/Lumbar Variant: Assume first normal thoracic rib is the T1 level. Splicing Machine Operator: [facility] Transcribe Date/Time: Oct 15 2022 8:28A Dictated by : TIKA SELF MD This examination was interpreted and the report reviewed and electronically signed by: TIKA SELF MD on Oct 15 2022 8:55AM EST [id number] Normal [facility] CT THORACIC SPINE WO IVCONon 10-12-2022 CT THORACIC SPINE WO IVCON * * *Final Report* * * DATE OF EXAM: Oct 12 2022 3:08PM A1C 0514 - CT THORACIC SPINE WO IVCON / PROCEDURE REASON: Closed fracture of first thoracic vertebra with routine healing, unspecified fra * * * * Physician Interpretation * * * * EXAMINATION: CT CERVICAL SPINE WO IVCON, CT THORACIC SPINE WO IVCON CLINICAL HISTORY: Closed displaced fracture of seventh cervical vertebra with routine healing, unspecified fracture morphology, subsequent encounter Spinal stenosis in cervical region TECHNIQUE: Spiral, high resolution axial unenhanced images were obtained from the skull base to the thoracolumbar junction with sagittal and coronal planar reconstructions. MQ: CTCTWO_3 CT Radiation dose: Integrated Dose-Length Product (DLP) for this visit = 296.45 (accession [id number]), 827.07 (accession [id number]) mGy*cm. CT Dose Reduction Employed: Automated exposure control (AEC) COMPARISON: MRI cervical spine and thoracic spine on 07/06/2022. Cervical spine and thoracic spine radiographs on 08/18/2022. RESULT: CERVICAL: Counting reference: Craniocervical junction. Anatomic Variants: None. Alignment: No evidence of new spondylolisthesis. Bone marrow / fracture: Unchanged compression fracture of C7 vertebral body, with mild anterior vertebral body height loss. Persistent vertically oriented fracture line. Mild development of interval sclerosis. No new vertebral body height loss identified. Nonspecific right mastoid fluid is partially imaged. Degenerative changes: Multilevel degenerative changes of the cervical spine, as previously detailed on MRI cervical spine from 07/06/2022. THORACIC: Counting reference: Craniocervical and lumbosacral junctions For the purposes of this report, Assume the first normal thoracic rib is at the T1 level. Explosive Expert (topogram) images: Multiple right-sided rib fractures are only seen on home school liaison officer image. Alignment: No evidence of new spondylolisthesis. Bone marrow / fracture: Unchanged inferior endplate fracture involving T1 and T2 vertebral bodies. No evidence of vertebral body height loss. Unchanged the inferior endplate deformity of T10 vertebral body. IMPRESSION: CERVICAL: 1. Unchanged mild vertebral body height loss involving C7 vertebral body fracture, with persistent visible fracture line and interval development of sclerosis suggestive of partial interval healing. 2. Nonspecific right mastoid fluid is partially imaged. THORACIC: 1. Unchanged inferior endplate fracture involving T1 and T2 vertebral bodies. No evidence of vertebral body height loss. 2. Unchanged the inferior endplate deformity of T10 vertebral body. 3. Multiple right-sided rib fractures are only seen on the home school liaison officer image. Please refer to the previous chest imaging. Cervical Anatomic Variant: None. Assume 7 cervical vertebrae with counting from the craniocervical junction. Anatomic Thoracic/Lumbar Variant: Assume first normal thoracic rib is the T1 level. Splicing Machine Operator: [facility] Transcribe Date/Time: Oct 15 2022 8:28A Dictated by : TIKA SELF MD This examination was interpreted and the report reviewed and electronically signed by: TIKA SELF MD on Oct 15 2022 8:55AM EST [id number] Normal [facility] XR CERVICAL 4V AP/LAT/FLX/EX Ton 10-12-2022 XR CERVICAL 4V AP/LAT/FLX/EXT * * *Final Report* * * DATE OF EXAM: Oct 12 2022 3:54PM A1X 5310 - XR CERVICAL 4V AP/LAT/FLX/EXT / PROCEDURE REASON: Spinal stenosis in cervical region * * * * Physician Interpretation * * * * EXAM: CERVICAL SPINE, 4 VIEWS CLINICAL: 66-year-old male with spinal stenosis and cervical region TECHNIQUE: AP, lateral, lateral flexion-extension COMPARISON: 08/18/2022 RESULTS: Counting reference: Craniocervical junction.. Straightening of normal cervical lordosis. Mild degenerative disc disease at C3/C4 and marked degenerative disc disease at C5/C6 and C6/C7. Osteophytes of the vertebral osteophytes at C3-C7. Narrowing of facet joints. Limited motion with flexion-extension. No instability. IMPRESSION: MULTILEVEL DEGENERATIVE DISC AND FACET DISEASE UNCHANGED FROM PREVIOUS Splicing Machine Operator: [facility] Transcribe Date/Time: Oct 15 2022 4:28P Dictated by : MORGAN BORGES MD This examination was interpreted and the report reviewed and electronically signed by: MORGAN BORGES MD on Oct 15 2022 4:29PM EST [id number] Normal [facility] CNPNon 09-17-2022 CNPN Telephone (AGC) YARITZA HENDERSON ([id number]) 1955 M Date Time Provider Department 09/17/22 FREDRICK FELICIANO [facility] During your visit today, we recorded the following information about you: Fredrick Feliciano MD 09/17/2022 11:43 AM Signed Let patient know repeat electrolyte panel shows kidney functions are back to normal. His sodium has also improved and is the best it has been in over 4 yrs. It would probably return to normal if he stopped drinking alcohol all together. Steve Ochoa LPN 09/17/2022 11:49 AM Signed Pt notified of results, verbalizes understanding. Steve Ochoa LPN Allergies As of Date: 09/17/2022 (No Known Allergies) Date Reviewed: 08/18/2022 Reviewed by: Saumya Villanueva MA - Fully Assessed Reason for Visit: Results [95] Prescriptions as of 09/17/2022 - tiZANidine (ZANAFLEX) 4 mg tablet Take 1 tablet by mouth every 8 hours as needed. - acetaminophen (TYLENOL EXTRA STRENGTH) 500 mg tablet Take 2 tablets by mouth every 8 hours as needed for pain (for pain.). - triamterene-hydroCHLOROthiaz mila (MAXZIDE-25) 37.5-25 mg per tablet Take 1 tablet by mouth once daily. - acetaminophen (TYLENOL) 325 mg tablet Take 3 tablets by mouth every 6 hours as needed for pain. - thiamine (VITAMIN B1) 100 mg tablet Take 1 tablet by mouth once daily. - amLODIPine (NORVASC) 10 mg tablet Take 1 tablet by mouth once daily. - cyanocobalamin (VITAMIN B-12) 1,000 mcg tab Take 1 tablet by mouth once daily. - lisinopril (ZESTRIL, PRINIVIL) 40 mg tablet Take 1 tablet by mouth twice daily. - Blood Pressure Monitor kit Take blood pressure daily DX: hypertension - COMPOUNDED PRESCRIPTION Take blood pressure daily and write it down Problem List As Of Date 09/17/2022 Noted Resolved Hypertension, essential [I10] 02/07/2018 Alcohol abuse [F10.10] 04/25/2018 Ex-smoker [Z87.891] 04/25/2018 Elevated LFTs [R79.89] 04/25/2018 Proteinuria [R80.9] 04/25/2018 11/19/2021 Fatty liver, alcoholic [K70.0] 05/08/2018 Medicare annual wellness visit, subsequent [Z00*08/01/2019 Benign prostatic hyperplasia without lower urin*08/01/2019 Prostate disorder [N42.9] 08/01/2019 Anemia [D64.9] 08/01/2019 Elevated alkaline phosphatase level [R74.8] 06/16/2021 Advance directive discussed with patient [Z71.8*11/19/2021 Hyponatremia [E87.1] 06/08/2022 Fall down steps [W10.8XXA] 07/06/2022 Closed fracture of spinous process of cervical *07/06/2022 Closed displaced fracture of seventh cervical v*07/06/2022 Subluxation of c6/C7 cervical vertebrae, initia*07/06/2022 Ground-level fall [W18.30XA] 07/06/2022 Spinal stenosis in cervical region [M48.02] 07/17/2022 Closed fracture of first thoracic vertebra with*07/17/2022 Encounter Status:Closed by STEVE OCHOA LPN on 09/17/22 [facility] CNOVon 08-18-2022 OV Office Visit (NEAGCL M) YARITZA HENDERSON ([id number]) 1955 M Date Time Provider Department 08/18/22 11:30 AM LEAH BLAIR [facility] During your visit today, we recorded the following information about you: Pulse Blood pressure Weight Height 72/minute 143/84 75.3 kg 1.778 m Leah Blair APRN.BIRGIT 08/18/2022 1:13 PM Signed SPINE SURGERY FOLLOW UP NOTE Leah Blair APRN-BIRGIT Date of visit: August 18, 2022 Patient Name: Mr.Ronald Winsome Henderson Date of : 1955 Current Age: [age] year old Sex: male MRN/E# [id number] Last Office Visit: 07/17/2022 Chief Complaint: Patient presents with: Established Patient HPI Mr.Ronald Winsome Henderson has a past medical history of fatty alcoholic liver disease with EtOH abuse and hypertension. Presented to [facility] on 07/06/2022, status post fall down 13 stairs while intoxicated 2 days prior with reports of neck pain and mid thoracic pain. He denied pain in upper or lower extremities. He denied weakness in extremities. Trauma work-up demonstrated C4 spinous process fracture, C7 vertical body fracture, C6/C7 right facet fracture with subluxation, T1 and T2 subacute compression. CTA head and neck unremarkable for acute vascular injury. Neurosurgery consulted,Dr. Estrada. Nonoperative conservative treatment recommended with LOGISTICS PROGRAM MANAGER collar at all times. He was discharged on 07/08/2022 with instructions to follow-up with neurosurgery in 2 weeks time. He was last seen in the office on 07/17/2022 and reported doing well following hospital discharge. He denied pain in cervical or upper extremities. He denied upper extremity weakness, paresthesia, or gait difficulties. MRI of cervical spine during hospitalization was reviewed, evidence of severe central canal stenosis at C5/C6. On exam, he was mildly myelopathic. Discussed need for adequate healing time of fractures. He reported compliance with LOGISTICS PROGRAM MANAGER collar and activity restrictions. He denied new falls or trauma. He was recommended use of Tylenol and Zanaflex for symptom control. He was asked to follow-up in 4 weeks time with repeat cervical and thoracic imaging, prompting visit today. Today he presents to the office, 6 weeks since initial injury and reports doing well since last office visit. He denies neck or middle back pain. He denies upper extremity pain, paresthesia, or weakness. He denies difficulty with balance or gait. He reports compliance with LOGISTICS PROGRAM MANAGER collar and activity restrictions. He expresses desire for removal of the LOGISTICS PROGRAM MANAGER collar. PAIN EVALUATION No data found in the last 1 encounters. PAST MEDICAL HISTORY Diagnosis Date Advance directive discussed with patient 11/19/2021 Discussed 10/2021 Alcohol abuse 04/25/2018 Alcohol abuse 04/25/2018 12 pck per day since around 2014 (maybe longer) Benign prostatic hyperplasia without lower urinary tract symptoms 08/01/2019 Elevated alkaline phosphatase level 06/16/2021 Alcoholic liver disease Elevated LFTs 04/25/2018 Ex-smoker 04/25/2018 Started at 7 yo, 1/2-1 PPD and quit at age 19 Ex-smoker 04/25/2018 Started at 7 yo, 1/2-1 PPD and quit at age 19 Fatty liver, alcoholic 05/08/2018 History of right shoulder fracture Hypertension, essential 02/07/2018 Medicare annual wellness visit, subsequent 08/01/2019 :Medicare Part B: 09/28/2018 Last done: 08/01/2019 Tibia/fibula fracture PAST SURGICAL HISTORY Procedure Laterality Date 2D ECHO (EXEP) 06/21/2020 EF=60%, mild menchaca dysf, 1+ [place] COLONOSCOPY 01/09/2019 Dr. Gonzalez, repeat 10 yrs REMV CATARACT EXTRACAP,INSERT LENS Bilateral Summer/fall of 2021 FAMILY HISTORY Problem Relation Age of Onset No Known Problems Mother when patient was 8 from accident No Known Problems Father No Known Problems Sister unsure of hx No Known Problems Brother doens't know hx No Known Problems Maternal Grandmother doesn't know hx No Known Problems Maternal Grandfather doesn't know hx No Known Problems Paternal Grandmother doesn't know hx No Known Problems Paternal Grandfather doesn't know hx Alzheimer's Disease No Family History Colon Cancer No Family History Prostate Cancer No Family History Coronary Artery Disease No Family History Diabetes No Family History Hypertension No Family History Hyperlipidemia No Family History Kidney Disease No Family History Seizures No Family History Stroke No Family History Thyroid No Family History ALLERGIES No Known Allergies Current Outpatient Medications Medication Sig Dispense Refill triamterene-hydroCHLOROthiaz mila (MAXZIDE-25) 37.5-25 mg per tablet Take 1 tablet by mouth once daily. thiamine (VITAMIN B1) 100 mg tablet Take 1 tablet by mouth once daily. 30 tablet 5 amLODIPine (NORVASC) 10 mg tablet Take 1 tablet by mouth once daily. 30 tablet 5 cyanocobalamin (VITAMIN B-12) 1,000 mcg tab Take 1 tablet by mouth once daily. 30 tablet 5 lisinopril (ZESTRIL, (more content not included)... Normal [facility] XR CERVICAL 2V AP/LATon 07-30 XR CERVICAL 2V AP/LAT * * *Final Report* * * DATE OF EXAM: Aug 18 2022 11:08AM A1X 5308 - XR CERVICAL 2V AP/LAT / PROCEDURE REASON: Closed fracture of spinous process of cervical vertebra, subsequent encounter * * * * Physician Interpretation * * * * EXAM: CERVICAL SPINE, 2 VIEWS; THORACIC SPINE, 3 VIEWS CLINICAL: 66-year-old male with closed fracture of first thoracic vertebrae TECHNIQUE: AP, lateral, of the cervical and thoracic spine and swimmer's view the thoracic spine COMPARISON: 07/17/[address] scan the abdomen of 06/03/2021 RESULTS: Counting reference: Craniocervical junction.. Mild reversal normal cervical lordosis centered at C5/C6. Marked narrowing C5/C6 and C6/C7 disc spaces and mild narrowing of C4/C5 disc space. Osteophytes anteriorly C4-C7 and uncovertebral osteophytes at C3-C7. Narrowing of facet joints throughout the cervical spine. Counting reference: The first rib-bearing vertebral bodies considered T1. There are 12 thoracic vertebrae. Dextroscoliosis of thoracic spine centered at T6/T7. T1 and T2 vertebral bodies are partially visualized. No vertebral height loss is identified. There is an anterior wedge type appearance of the T10 vertebral body with the inferior endplate deformity, no male this may relate to remote trauma, consistent with a remote fracture and unchanged compared to the Reconstruction abdominal CT scan.. IMPRESSION: DEGENERATIVE DISC DISEASE AND FACET DISEASE IN THE CERVICAL SPINE. NO CHANGE COMPARED TO PREVIOUS EXAM. REMOTE FRACTURE OF T10 VERTEBRAL BODY. MILD DEXTROSCOLIOSIS OF THE UPPER THORACIC SPINE. NO CHANGE COMPARED TO PREVIOUS EXAM. Splicing Machine Operator: [facility] Transcribe Date/Time: Aug 19 2022 5:45P Dictated by : MORGAN BORGES MD This examination was interpreted and the report reviewed and electronically signed by: MORGAN BORGES MD on Aug 19 2022 5:54PM EST [id number] Normal [facility] XR THORACIC 2V AP/LATon 07-30 XR THORACIC 2V AP/LAT * * *Final Report* * * DATE OF EXAM: Aug 18 2022 11:07AM A1X 5262 - XR THORACIC 2V AP/LAT / PROCEDURE REASON: Closed fracture of first thoracic vertebra with routine healing, unspecified fra * * * * Physician Interpretation * * * * EXAM: CERVICAL SPINE, 2 VIEWS; THORACIC SPINE, 3 VIEWS CLINICAL: 66-year-old male with closed fracture of first thoracic vertebrae TECHNIQUE: AP, lateral, of the cervical and thoracic spine and swimmer's view the thoracic spine COMPARISON: 07/17/[address] scan the abdomen of 06/03/2021 RESULTS: Counting reference: Craniocervical junction.. Mild reversal normal cervical lordosis centered at C5/C6. Marked narrowing C5/C6 and C6/C7 disc spaces and mild narrowing of C4/C5 disc space. Osteophytes anteriorly C4-C7 and uncovertebral osteophytes at C3-C7. Narrowing of facet joints throughout the cervical spine. Counting reference: The first rib-bearing vertebral bodies considered T1. There are 12 thoracic vertebrae. Dextroscoliosis of thoracic spine centered at T6/T7. T1 and T2 vertebral bodies are partially visualized. No vertebral height loss is identified. There is an anterior wedge type appearance of the T10 vertebral body with the inferior endplate deformity, no male this may relate to remote trauma, consistent with a remote fracture and unchanged compared to the Reconstruction abdominal CT scan.. IMPRESSION: DEGENERATIVE DISC DISEASE AND FACET DISEASE IN THE CERVICAL SPINE. NO CHANGE COMPARED TO PREVIOUS EXAM. REMOTE FRACTURE OF T10 VERTEBRAL BODY. MILD DEXTROSCOLIOSIS OF THE UPPER THORACIC SPINE. NO CHANGE COMPARED TO PREVIOUS EXAM. Splicing Machine Operator: [facility] Transcribe Date/Time: Aug 19 2022 5:45P Dictated by : MORGAN BORGES MD This examination was interpreted and the report reviewed and electronically signed by: MORGAN BORGES MD on Aug 19 2022 5:54PM EST [id number] Normal [facility] CNOVon 07-17-2022 CNOV Office Visit (NEAGCL M) YARITZA HENDERSON ([id number]) 1955 M Date Time Provider Department 07/17/22 9:30 AM LEAH BLAIR [facility] During your visit today, we recorded the following information about you: Pulse Blood pressure Weight Height 78/minute 90/66 75.3 kg 1.778 m Leah Blair APRN.CNP 07/17/2022 3:42 PM Signed SPINE SURGERY FOLLOW UP NOTE Leah Blair APRN-BIRGIT Date of visit: July 17, 2022 Patient Name: Mr.Ronald Winsome Henderson Date of : 1955 Current Age: [age] year old Sex: male MRN/E# [id number] Last Office Visit: 07/09/2022 Chief Complaint: Fracture follow up HPI Mr.Ronald Winsome Henderson has a past medical history of fatty alcoholic liver disease with EtOH abuse and hypertension. Presented to [facility] on 07/06/2022, status post fall down 13 stairs while intoxicated 2 days prior with reports of neck pain and mid thoracic pain. He denied pain in upper or lower extremities. He denied weakness in extremities. Trauma work-up demonstrated C4 spinous process fracture, C7 vertical body fracture, C6/C7 right facet fracture with subluxation, T1 and T2 subacute compression. CTA head and neck unremarkable for acute vascular injury. Neurosurgery consulted,Dr. Estrada. Nonoperative conservative treatment recommended with LOGISTICS PROGRAM MANAGER collar at all times. He was discharged on 07/08/2022 with instructions to follow-up with neurosurgery in 2 weeks time, prompting visit today. He presents to the office today, 2 weeks since initial injury, and reports doing well since hospital discharge. He reports compliance with LOGISTICS PROGRAM MANAGER collar and activity restrictions. He denies any new falls or trauma since hospital discharge. He denies cervical or upper extremity pain. He denies upper extremity weakness, paresthesia, or gait difficulties. He is ambulating without assistive device. He is having pain primarily in right thoracic paraspinal region that is tolerable with oral medication, requesting a refill on oxycodone. He reports significant reduction of alcohol intake. Symptoms: Right thoracic paraspinal pain PAIN EVALUATION 07/17/2022 0929 Pain Level: 8 Pain Location: Neck Description: Aching;Dull Duration Amount of Time: 2 Duration Units: Weeks Frequency: Intermittent Intervention/Comfort measure: Medication;Support surface PAST MEDICAL HISTORY Diagnosis Date Advance directive discussed with patient 11/19/2021 Discussed 10/2021 Alcohol abuse 04/25/2018 Alcohol abuse 04/25/2018 12 pck per day since around 2014 (maybe longer) Benign prostatic hyperplasia without lower urinary tract symptoms 08/01/2019 Elevated alkaline phosphatase level 06/16/2021 Alcoholic liver disease Elevated LFTs 04/25/2018 Ex-smoker 04/25/2018 Started at 7 yo, 1/2-1 PPD and quit at age 19 Ex-smoker 04/25/2018 Started at 7 yo, 1/2-1 PPD and quit at age 19 Fatty liver, alcoholic 05/08/2018 History of right shoulder fracture Hypertension, essential 02/07/2018 Medicare annual wellness visit, subsequent 08/01/2019 :Medicare Part B: 09/28/2018 Last done: 08/01/2019 Tibia/fibula fracture PAST SURGICAL HISTORY Procedure Laterality Date 2D ECHO (EXEP) 06/21/2020 EF=60%, mild menchaca dysf, 1+ [place] COLONOSCOPY 01/09/2019 Dr. Gonzalez, repeat 10 yrs REMV CATARACT EXTRACAP,INSERT LENS Bilateral Summer/fall of 2021 FAMILY HISTORY Problem Relation Age of Onset No Known Problems Mother when patient was 8 from accident No Known Problems Father No Known Problems Sister unsure of hx No Known Problems Brother doens't know hx No Known Problems Maternal Grandmother doesn't know hx No Known Problems Maternal Grandfather doesn't know hx No Known Problems Paternal Grandmother doesn't know hx No Known Problems Paternal Grandfather doesn't know hx Alzheimer's Disease No Family History Colon Cancer No Family History Prostate Cancer No Family History Coronary Artery Disease No Family History Diabetes No Family History Hypertension No Family History Hyperlipidemia No Family History Kidney Disease No Family History Seizures No Family History Stroke No Family History Thyroid No Family History ALLERGIES No Known Allergies Current Outpatient Medications Medication Sig Dispense Refill triamterene-hydroCHLOROthiaz mila (MAXZIDE-25) 37.5-25 mg per tablet Take 1 tablet by mouth once daily. acetaminophen (TYLENOL) 325 mg tablet Take 3 tablets by mouth every 6 hours as needed for pain. thiamine (VITAMIN B1) 100 mg tablet Take 1 tablet by mouth once daily. 30 tablet 5 amLODIPine (NORVASC) 10 mg tablet Take 1 tablet by mouth once daily. 30 tablet 5 cyanocobalamin (VITAMIN B-12) 1,000 mcg tab Take 1 tablet by mouth once daily. 30 tablet 5 lisinopril (ZESTRIL, PRINIVIL) 40 mg tablet Take 1 tablet by mouth twice daily. 60 tablet 5 Blood Pressure Monitor kit Take blood pressure daily DX: hypertension 1 Kit 0 COMPOUNDE (more content not included)... Normal [facility] XR CERVICAL 2V AP/LATon 07-01 XR CERVICAL 2V AP/LAT * * *Final Report* * * DATE OF EXAM: Jul 17 2022 9:18AM A1X 5308 - XR CERVICAL 2V AP/LAT / PROCEDURE REASON: Closed displaced fracture of seventh cervical vertebra with routine healing, uns * * * * Physician Interpretation * * * * EXAMINATION: XR CERVICAL 2V AP/LAT, XR THORACIC 2V AP/LAT HISTORY: Closed displaced fracture of seventh cervical vertebra with routine healing, unspecified fracture morphology, subsequent encounter TECHNIQUE: XR CERVICAL 2V AP/LAT, XR THORACIC 2V AP/LAT COMPARISON: 07/06/2022 and 07/07/2022 FINDINGS: Moderate to severe multilevel spondylosis most advanced from C4/C5 through C6/C7. Mild degenerative change throughout the thoracic spine. Straightening of normal cervical lordosis without listhesis at any individual cervical motion segment. Mild apex LEFT scoliosis lower thoracic spine. Mild superior endplate fractures of C7 and T1 appears similar to prior. No aggressive osseous lesion. Paraspinal soft tissues appear normal. Examination is otherwise unremarkable. IMPRESSION: Unchanged mild superior endplate fractures of C7, T1, and T2. Straightening of normal cervical lordosis likely positional or due to neck spasm. Mild apex LEFT scoliosis in the thoracic spine. Degenerative changes as described. Splicing Machine Operator: [facility] Transcribe Date/Time: Jul 22 2022 2:50P Dictated by : CLAUDIO DALTON MD This examination was interpreted and the report reviewed and electronically signed by: CLAUDIO DALTON MD on Jul 22 2022 2:56PM EST [id number] Normal [facility] XR THORACIC 2V AP/LATon 07-01 XR THORACIC 2V AP/LAT * * *Final Report* * * DATE OF EXAM: Jul 17 2022 9:18AM A1X 5262 - XR THORACIC 2V AP/LAT / PROCEDURE REASON: Compression fracture of T1 vertebra, sequela * * * * Physician Interpretation * * * * EXAMINATION: XR CERVICAL 2V AP/LAT, XR THORACIC 2V AP/LAT HISTORY: Closed displaced fracture of seventh cervical vertebra with routine healing, unspecified fracture morphology, subsequent encounter TECHNIQUE: XR CERVICAL 2V AP/LAT, XR THORACIC 2V AP/LAT COMPARISON: 07/06/2022 and 07/07/2022 FINDINGS: Moderate to severe multilevel spondylosis most advanced from C4/C5 through C6/C7. Mild degenerative change throughout the thoracic spine. Straightening of normal cervical lordosis without listhesis at any individual cervical motion segment. Mild apex LEFT scoliosis lower thoracic spine. Mild superior endplate fractures of C7 and T1 appears similar to prior. No aggressive osseous lesion. Paraspinal soft tissues appear normal. Examination is otherwise unremarkable. IMPRESSION: Unchanged mild superior endplate fractures of C7, T1, and T2. Straightening of normal cervical lordosis likely positional or due to neck spasm. Mild apex LEFT scoliosis in the thoracic spine. Degenerative changes as described. Splicing Machine Operator[facility] Transcribe Date/Time: Jul 22 2022 2:50P Dictated by : CLAUDIO DATLON MD This examination was interpreted and the report reviewed and electronically signed by: CLAUDIO DALTON MD on Jul 22 2022 2:56PM EST [id number] Normal [facility] Basic metabolic 2000 panelon 07-16-2022 Anion gap [Moles/Vol] 13 mmol/L 9 - 18 mmol/L [facility] Calcium [Mass/Vol] 9.7 mg/dL 8.5 - 10. 2 mg/dL [facility] Chloride [Moles/Vol] 92 mmol/L Low 97 - 105 mmol/L [facility] CO2 [Moles/Vol] 21 mmol/L Low 22 - 30 mmol/L [facility] Creatinine [Mass/Vol] 1.53 mg/dL High 0.73 - 1.22 mg/dL [facility] Estimated Glomerular Filtration Rate 49 mL/min/1.73m Low >=60 mL/min/1.73m [facility] Glucose [Mass/Vol] 110 mg/dL High 74 - 99 mg/dL [facility] Potassium [Moles/Vol] 4.4 mmol/L 3.7 - 5.1 mmol/L [facility] Sodium [Moles/Vol] 126 mmol/L Low 136 - 144 mmol/L [facility] Urea nitrogen [Mass/Vol] 25 mg/dL High 9 - 24 mg/dL [facility] Zak 07-15-2022 CNPN Telephone (NEAG[facility]M) SANTIAGOYARITZA ([id number]) 1955 M Date Time Provider Department 07/15/22 IVANIA ESTRADA I [facility]AG[facility] During your visit today, we recorded the following information about you: Denis Monteiro RN 07/15/2022 1:42 PM Signed The patient called into the office and requested a refill of oxycodone. I spoke with Dr. Estrada who were okay with taking over prescription. Upon refilling medication, received notification that this medication was currently pending from his PCP, Dr. Feliciano. I instructed him to contact their office as it seemed they were already in the process of prescribing this. Asked him to call me back once he contacted them if he was unable to prescribe. He understood and was appreciative. Denis Monteiro RN Allergies As of Date: 07/15/2022 (No Known Allergies) Date Reviewed: 07/13/2022 Reviewed by: Amie Nixon, PT - Fully Assessed Reason for Visit: Medication Problem [65] Prescriptions as of 07/15/2022 - triamterene-hydroCHLOROthiaz mila (MAXZIDE-25) 37.5-25 mg per tablet Take 1 tablet by mouth once daily. - acetaminophen (TYLENOL) 325 mg tablet Take 3 tablets by mouth every 6 hours as needed for pain. - thiamine (VITAMIN B1) 100 mg tablet Take 1 tablet by mouth once daily. - amLODIPine (NORVASC) 10 mg tablet Take 1 tablet by mouth once daily. - cyanocobalamin (VITAMIN B-12) 1,000 mcg tab Take 1 tablet by mouth once daily. - lisinopril (ZESTRIL, PRINIVIL) 40 mg tablet Take 1 tablet by mouth twice daily. - Blood Pressure Monitor kit Take blood pressure daily DX: hypertension - COMPOUNDED PRESCRIPTION Take blood pressure daily and write it down Problem List As Of Date 07/15/2022 Noted Resolved Hypertension, essential [I10] 02/07/2018 Alcohol abuse [F10.10] 04/25/2018 Ex-smoker [Z87.891] 04/25/2018 Elevated LFTs [R79.89] 04/25/2018 Proteinuria [R80.9] 04/25/2018 11/19/2021 Fatty liver, alcoholic [K70.0] 05/08/2018 Medicare annual wellness visit, subsequent [Z00*08/01/2019 Benign prostatic hyperplasia without lower urin*08/01/2019 Prostate disorder [N42.9] 08/01/2019 Anemia [D64.9] 08/01/2019 Elevated alkaline phosphatase level [R74.8] 06/16/2021 Advance directive discussed with patient [Z71.8*11/19/2021 Hyponatremia [E87.1] 06/08/2022 Fall down steps [W10.8XXA] 07/06/2022 Closed fracture of spinous process of cervical *07/06/2022 Closed displaced fracture of seventh cervical v*07/06/2022 Subluxation of c6/C7 cervical vertebrae, initia*07/06/2022 Ground-level fall [W18.30XA] 07/06/2022 Encounter Status:Closed by DENIS MONTEIRO on 07/15/22 [facility] 07-09-2022 [facility] Telephone ([facility]AGCLM) YARITZA HENDERSON ([id number]) 1955 M Date Time Provider Department 07/09/22 IVANIA ESTRADA I NEAGCLM During your visit today, we recorded the following information about you: Demarcus Allen 07/09/2022 2:25 PM Signed ----- Message from Medina Treviño PA-C sent at 07/08/2022 3:37 PM EST ----- Regarding: pt appt Helrosie! Yaritza to see SW in 2 wks with xr - ordered Dx: C7, T1, T2 fxs thx Demarcus Allne 07/09/2022 2:26 PM Signed Called patient to schedule x-rays and follow up with Leah or Robin in 2 weeks. Patient's voicemail box is not set up. Was unable to leave a voicemail. Allergies As of Date: 07/09/2022 (No Known Allergies) Date Reviewed: 07/07/2022 Reviewed by: Gena Noble RN - Fully Assessed Reason for Visit: Appointment [186] Prescriptions as of 07/09/2022 - acetaminophen (TYLENOL) 325 mg tablet Take 3 tablets by mouth every 6 hours as needed for pain. - oxyCODONE IR (ROXICODONE) 5 mg immediate release tablet Take 1 tablet by mouth every 8 hours as needed for pain for up to 5 days. - sodium chloride 1 gram tab Take 2 tablets by mouth three times daily for 5 days. - thiamine (VITAMIN B1) 100 mg tablet Take 1 tablet by mouth once daily. - amLODIPine (NORVASC) 10 mg tablet Take 1 tablet by mouth once daily. - cyanocobalamin (VITAMIN B-12) 1,000 mcg tab Take 1 tablet by mouth once daily. - lisinopril (ZESTRIL, PRINIVIL) 40 mg tablet Take 1 tablet by mouth twice daily. - Blood Pressure Monitor kit Take blood pressure daily DX: hypertension - COMPOUNDED PRESCRIPTION Take blood pressure daily and write it down Problem List As Of Date 07/09/2022 Noted Resolved Hypertension, essential [I10] 02/07/2018 Alcohol abuse [F10.10] 04/25/2018 Ex-smoker [Z87.891] 04/25/2018 Elevated LFTs [R79.89] 04/25/2018 Proteinuria [R80.9] 04/25/2018 11/19/2021 Fatty liver, alcoholic [K70.0] 05/08/2018 Medicare annual wellness visit, subsequent [Z00*08/01/2019 Benign prostatic hyperplasia without lower urin*08/01/2019 Prostate disorder [N42.9] 08/01/2019 Anemia [D64.9] 08/01/2019 Elevated alkaline phosphatase level [R74.8] 06/16/2021 Advance directive discussed with patient [Z71.8*11/19/2021 Hyponatremia [E87.1] 06/08/2022 Fall down steps [W10.8XXA] 07/06/2022 Closed fracture of spinous process of cervical *07/06/2022 Closed displaced fracture of seventh cervical v*07/06/2022 Subluxation of c6/C7 cervical vertebrae, initia*07/06/2022 Ground-level fall [W18.30XA] 07/06/2022 Encounter Status:Closed by DEMARCUS ALLEN on 07/09/22 Normal [facility] Basic metabolic 2000 panelon 07-08-2022 Anion gap [Moles/Vol] 9 mmol/L Normal 9-18 [facility] Comment on above: Order Comment: Speci men Type: BLOOD SPECIMENOrdering Facility: [facility] Address: [address] [place] [address] Performed By: #### 2 4325-3, 31686-7 ####[facility] LABORATORYCLIA [id number] [place] [address] [place] Calcium [Mass/Vol] 8.8 mg/dL Normal 8.5-10.2 [facility] Comment on above: Order Comment: Speci men Type: BLOOD SPECIMENOrdering Facility: [facility] Address: [address] [place] [address] Performed By: #### 2 4325-3, 15490-4 ####[facility] LABORATORYCLIA [id number] [place] [address] [place] Chloride [Moles/Vol] 86 mmol/L Low 97-105 [facility] Comment on above: Order Comment: Speci men Type: BLOOD SPECIMENOrdering Facility: [facility] Address: [address] [place] [address] Performed By: #### 2 4325-3, 24130-4 ####[facility] LABORATORYCLIA [id number] [place] CO2 [Moles/Vol] 25 mmol/L Normal 22-30 [facility] Comment on above: Order Comment: Speci men Type: BLOOD SPECIMENOrdering Facility: [facility] Address: [address] [address] Performed By: #### 2 4325-3, 17749-8 ####[facility] LABORATORYCLIA [id number] [address] [place] Creatinine [Mass/Vol] 0.99 mg/dL Normal 0.73-1.22 [facility] Comment on above: Order Comment: Speci men Type: BLOOD SPECIMENOrdering Facility: [facility] Address: [address] [place] [address] Performed By: #### 2 4325-3, 44772-2 ####[facility] LABORATORYCLIA [id number] [address] ESTIMATED GLOMERULAR FILTRATION RATE 83 mL/min/1.73m??? Normal >=60 [facility] Comment on above: Order Comment: Speci men Type: BLOOD SPECIMENOrdering Facility: [facility] Address: [address] [place] [address] Result Comment: Stormy mated Glomerular Filtration Rate (eGFR) is calculated using the 2020 CKD-EPI creatinine equation. This equation utilizes serum creatinine, sex, and age as parameters. The creatinine assay has traceable calibration to isotope dilution-mass spectrometry. Refer to KDIGO guidelines for clinical interpretation. In patients with unstable renal function, e.g. those with acute kidney injury, the eGFR may not accurately reflect actual GFR. Performed By: #### 2 4325-3, 72658-0 ####[facility] LABORATORYCLIA [id number] [address] [place] Glucose [Mass/Vol] 100 mg/dL High 74-99 [facility] Comment on above: Order Comment: Speci renate Type: BLOOD SPECIMENOrdering Facility: [facility] Address: [address] [place] [address] Result Comment: The [place] Diabetes Association (ADA) provides guidance for cutoff values for fasting glucose and random glucose. The ADA defines fasting as no caloric intake for at least 8 hours. Fasting plasma glucose results between 100 to 125 mg/dL indicate increased risk for diabetes (prediabetes). Fasting plasma glucose results greater than or equal to 126 mg/dL meet the criteria for diagnosis of diabetes. In the absence of unequivocal hyperglycemia, results should be confirmed by repeat testing. In a patient with classic symptoms of hyperglycemia or hyperglycemic crisis, random plasma glucose results greater than or equal to 200 mg/dL meet the criteria for diagnosis of diabetes. Reference: Standards of Medical Care in Diabetes 2016, [place] [employer] Association. Diabetes Care. 2016.39(Suppl 1). Performed By: #### 2 4325-3, 86606-2 ####[facility] LABORATORYCLIA [id number] [place] [address] [place] Potassium [Moles/Vol] Normal [facility] Comment on above: Order Comment: Charlene dewitt Type: BLOOD SPECIMENOrdering Facility: [facility] Address: [address] [place] [address] Result Comment: Unab le to assay due to interference from hemolysis. Suggest reorder as clinically indicated. Performed By: #### 2 4325-3, 66547-3 ####[facility]ATORYCLIA [id number] [place] [address] [place] Sodium [Moles/Vol] 120 mmol/L Low 136-144 [facility] Comment on above: Order Comment: Charlene dewitt Type: BLOOD SPECIMENOrdering Facility: [facility] Address: [address] [address] Performed By: #### 2 4324-3, 19235-3 ####[facility] LABORATORYCLIA [id number] [place] [address] [place] Urea nitrogen [Mass/Vol] 6 mg/dL Low 9-24 [facility] Comment on above: Order Comment: Charlene dewitt Type: BLOOD SPECIMENOrdering Facility: [facility] Address: [address] [address] Performed By: #### 2 4325-3, 81152-5 ####[facility] LABORATORYCLIA [id number] [address] STATES OF [facility] CASE MANAGEMon 07-08-2022 CASE MANAGEM HNO ID: [id number] Author: Kodak Hurst PA-C Service: General Surgery Author Type: Physician Traffic Chief Type: Care Mgt Progress Note Filed: 07/08/2022 7:51 AM Note Text: Trauma Surgery Progress Note SERVICE DATE: 07/08/2022 Trauma Service Pager: For questions or concerns Mon-Fri 6a-5p please page [phone]. After 5pm and on Weekends and Holidays, please page [phone] if in ICU or [phone] if on RNF. SUBJECTIVE: NAEON. Pain well-controlled. Tolerating diet. Denies numbness, tingling or paresthesias of the extremities. No new focal concerns. Was able to walk from wang to his bed after x-rays without difficulty. Hopeful for discharge home today. No difficulties swallowing liquids and would like regular food. OBJECTIVE: Vitals: Temp (24hrs), Av.1 ?C (98.7 ?F), Min:36.9 ?C (98.4 ?F), Max:37.4 ?C (99.4 ?F) BP 158/85 Pulse 89 Temp 36.9 ?C (98.4 ?F) (Oral) Resp 18 Ht 177.8 cm (5' 10) Wt 83.5 kg (184 lb) SpO2 97% BMI 26.40 kg/m? O2 Therapy: Room Air IANDO: Date 07/07/22699 - 07/08/2265807/08/22699 - 07/09/22 0659 Shift 4159-1289 7324-9352 2225-7520 24 Hour Total 2094-9094 5614-6532 0216-8102 24 Hour Total INTAKE PO 220 220 PO 220 220 Shift Total 220 220 OUTPUT Urine 5770 769 3592 Void (ml) 2397 063 2557 Shift Total 6790 525 9672 Weight (kg) 83.5 83.5 83.5 83.5 83.5 83.5 83.5 83.5 MEDICATIONS: Current Facility-Administered Medications Medication Dose Route Frequency enoxaparin 30 mg injection (LOVENOX) 30 mg SUBCUTANEOUS q 12 HR sodium chloride 1 g tab(s) 1 g ORAL TID LORazepam 2 mg (ATIVAN) 2 mg ORAL q 1 H PRN oxyCODONE IR 5 mg tab(s) (ROXICODONE) 5 mg ORAL q 6 H PRN lisinopril 40 mg tab(s) (ZESTRIL, PRINIVIL) 40 mg ORAL BID amLODIPine 10 mg tab(s) (NORVASC) 10 mg ORAL DAILY thiamine 100 mg tab(s) (VITAMIN B1) 100 mg ORAL DAILY cyanocobalamin 1,000 mcg (VITAMIN B-12) 1,000 mcg ORAL DAILY ondansetron 4 mg tab(s) (ZOFRAN) 4 mg ORAL q 6 H PRN Or ondansetron (PF) 4 mg injection (ZOFRAN) 4 mg INTRAVENOUS q 6 H PRN polyethylene glycol 3350 17 g packet (MIRALAX, GLYCOLAX) 17 g ORAL DAILY acetaminophen 975 mg tab(s) (TYLENOL) 975 mg ORAL q 6 H PRN Labs: Recent Labs 07/08/22 0400 07/07/22 0402 07/06/22 1031 NA 120* 124* 119* K -- 3.7 3.5* CHLOR 86* 90* 85* CO2 25 26 23 BUN 6* 9 8* CREAT 0.99 1.02 0.98 GLUC 100* 101* 111* ANION 9 8* 11 CA 8.8 8.4* 9.0 ALB 3.9 3.5* 4.0 AST -- 24 32 ALT -- 12 15 ALKPHOS 107 112 127* TBILI 0.7 1.2 1.3 WBC 4.29 7.62 9.19 HB 12.7* 12.2* 13.2 HCT 35.7* 34.3* 36.9* PLT 242 241 263 INR -- -- 1.0 PHYSICAL EXAM: Genl: Appears age appropriate. No acute distress. Resting comfortably. Head/Face: Normocephalic. Atraumatic. Poor dentition with multiple missing teeth Eyes: EOMI. Sclera not icteric, not injected Neck/Back: LOGISTICS PROGRAM MANAGER brace in place and well-fitted. Resp: Lung sounds are clear bilat. No wheezes. No rales. Breathing is non-labored on RA. CVS: RRR as above; 2+ pulses at RA, DP, PT bilat. GI: Abdomen is soft, non-tender, not distended. Bowel sounds normoactive. No peritonitis. MSK: Extremities without clubbing, cyanosis, edema. Normal ROM x 4. Skin: Warm and dry. Not jaundiced. Neuro: AANDOx3. Strength and sensation normal. CORDERO. GCS15. Psych: Normal mood. Normal affect. Appropriate insight into current situation. ASSESSMENT AND PLAN: Assessment Active Hospital Problems Diagnosis Date Noted Ground-level fall 07/06/2022 Alcohol abuse 04/25/2018 Priority: B Overview Note: 12 pck per day since around 2014 (maybe longer). As of 10/2020 6-12 a day Fall down steps 07/06/2022 Closed fracture of spinous process of cervical vertebra (HCC) 07/06/2022 Closed displaced fracture of seventh cervical vertebra with routine healing 07/06/2022 Subluxation of c6/C7 cervical vertebrae, initial encounter 07/06/2022 Hyponatremia 06/08/2022 Overview Note: Seeing nephrology- Dr. Garvin Assessment: 66 year old male s/p fall down multiple steps 07/04/2022 (Transfer from [facility]) Imaging performed: 07/06/2022 - CT HNCAPTL, CTA H/N, MRI T/L 07/07/2022 - XR C/T-spine Traumatic Injuries: C4 spinous process fracture Vertical C7 fracture Bilateral C6-7 facet fractures/subluxation Age indeterminate minimal endplate fractures of T2 and T10 Increased fat attenuation involving central mesentary - increased from 06/03/2021 exam - unlikely related to trauma, correlation with serial abdominal exams recommended to exclude subtle mesenteric injury Operations/Procedures: 1. None Care Plan: Cervical and thoracic spine injuries NSGY consulted Non-op management LOGISTICS PROGRAM MANAGER brace in place Upright x-rays completed Pain control Mobilize PT/OT pending TECHNOLOGY TRAINING ASSOCIATE swallow eval pending Mesenteric fat attenutation Serial abdominal exams benign Ok for regular diet H/O ETOH abuse Patient admitted drinks 10-12 beers daily No signs/symptoms of withdrawal at this time CIWA - no meds Torrey (more content not included)... Normal [facility] CBC panel Auto (Bld)on 07-08 Erythrocyte distribution width (RBC) [Ratio] 12.2 % Normal 11.5-15.0 [facility] Comment on above: Order Comment: Speci men Type: BLOOD SPECIMENOrdering Facility: [facility] Address: [address] [address] Performed By: #### 5 8410-2 ####[facility] LABORATORYCLIA [id number] [address] Hematocrit (Bld) [Volume fraction] 35.7 % Low 39.0-51.0 [facility] Comment on above: Order Comment: Speci men Type: BLOOD SPECIMENOrdering Facility: [facility] Address: [address] [place] [address] Performed By: #### 5 8410-2 ####[facility] LABORATORYCLIA [id number] [address] Hemoglobin (Bld) [Mass/Vol] 12.7 g/dL Low 13.0-17.0 [facility] Comment on above: Order Comment: Speci men Type: BLOOD SPECIMENOrdering Facility: [facility] Address: [address] [place] [address] Performed By: #### 5 8410-2 ####[facility] LABORATORYCLIA [id number] [address] STATES [facility] MCH (RBC) [Entitic mass] 32.3 pg Normal 26.0-34.0 [facility] Comment on above: Order Comment: Speci men Type: BLOOD SPECIMENOrdering Facility: [facility] Address: [address] [place] [address] Performed By: #### 5 8410-2 ####[facility] LABORATORYCLIA [id number] [address] [place] MCHC (RBC) [Mass/Vol] 35.6 g/dL Normal 30.5-36.0 [facility] Comment on above: Order Comment: Speci men Type: BLOOD SPECIMENOrdering Facility: [facility] Address: [address] [place] [address] Performed By: #### 5 8410-2 ####[facility] LABORATORYCLIA [id number] [address] MCV (RBC) [Entitic vol] 90.8 fL Normal 80.0-100.0 [facility] Comment on above: Order Comment: Speci men Type: BLOOD SPECIMENOrdering Facility: [facility] Address: [address] [address] Performed By: #### 5 8410-2 ####[facility] LABORATORYCLIA [id number] [address] [place] Nucleated RBC (Bld) [#/Vol] 10*3/uL Normal <0.01 [facility] Comment on above: Order Comment: Speci men Type: BLOOD SPECIMENOrdering Facility: [facility] Address: [address] [address] Performed By: #### 5 8410-2 ####[facility] LABORATORYCLIA [id number] [address] [place] Platelet mean volume (Bld) [Entitic vol] 8.6 fL Low 9.0-12.7 [facility] Comment on above: Order Comment: Speci men Type: BLOOD SPECIMENOrdering Facility: [facility] Address: [address] [address] Performed By: #### 5 8410-2 ####[facility] LABORATORYCLIA [id number] [address] [place] Platelets (Bld) [#/Vol] 242 10*3/uL Normal 150-400 [facility] Comment on above: Order Comment: Speci men Type: BLOOD SPECIMENOrdering Facility: [facility] Address: [address] [address] Performed By: #### 5 8410-2 ####[facility] LABORATORYCLIA [id number] [address] [place] RBC (Bld) [#/Vol] 3.93 10*6/uL Low 4.20-6.00 [facility] Comment on above: Order Comment: Speci men Type: BLOOD SPECIMENOrdering Facility: [facility] Address: [address] [address] Performed By: #### 5 8410-2 ####[facility] LABORATORYCLIA [id number] [place] [address] [facility] WBC (Bld) [#/Vol] 4.29 10*3/uL Normal 3.70-11.00 [facility] Comment on above: Order Comment: Speci men Type: BLOOD SPECIMENOrdering Facility: [facility] Address: [place] [address] Performed By: #### 5 8410-2 ####[facility] LABORATORYCLIA [id number] [place] [address] [facility] CNDSon 07-08-2022 CN HNO ID: [id number] Author: Kodak Hurst PA-C Service: General Surgery Author Type: Physician Traffic Chief Type: Discharge Summary Filed: 07/08/2022 1:38 PM Note Text: Attestation signed by Gato Toscano MD at 07/08/2022 2:54 PM Attending Note I discussed with resident. The patient was not examined by the attending. I reviewed the resident's note. I agree with the resident's assessment and plan unless otherwise noted. Signature: Gato Toscano MD Date: 07/08/2022. Time: 2:54 PM DISCHARGE SUMMARY PATIENT NAME: Yaritza Henderson Code Status: Not on file Highest Readmission Risk Score: 20 The 30 day readmissions risk score is derived from an internally validated risk model which evaluates patient level characteristics, utilization history, medication orders and lab results up until the day of discharge. Patients with a score of 40 or above are considered highest risk for readmission. Specific patient level drivers will be listed at the bottom of the summary. Admission Information Admission Information ADMIT DATE: 07/06/2022 DISCHARGE DATE: 07/08/2022 MY DOCTORS AND MEDICAL TEAM: My Main Hospital Doctor: Gato Toscano MD Primary Care Provider: Fredrick Feliciano MD My Medical Team Members: Treatment Team: Attending Provider: Gato Toscano MD Consulting: Ivania Estrada I, MD MY CONDITION AT DISCHARGE: Stable REASON I WAS IN THE HOSPITAL: Treatment of injuries sustained during a reported fall down multiple stairs on 07/04/2022 SUMMARY OF WHAT HAPPENED WHILE I WAS IN THE HOSPITAL: Mr. Yaritza Henderson was admitted to [facility] under the care of the trauma surgery team on 07/06/2022 as a transfer from [facility] for treatment of injuries sustained during a reported fall down stairs that occurred on 07/04/2022. He would undergo extensive CT, x-ray and MRI imaging that revealed the following traumatic injuries: 1. C4 spinous process fracture 2. Vertical C7 fracture 3. Bilateral C6-7 facet fractures/subluxation 4. Age indeterminate minimal endplate fractures of T2 and T10 5. Increased fat attenuation involving central mesentary - increased from 06/03/2021 exam - unlikely related to trauma, correlation with serial abdominal exams recommended to exclude subtle mesenteric injury Mr. Henderson was immobilized in a cervical collar and kept on bedrest precautions until evaluated by neurosurgery. Following review of his MRI imaging, neurosurgery ultimately recommended non-operative treatment. He was fitted for a LOGISTICS PROGRAM MANAGER brace to be worn at all times and upright x-ray imaging remained stable. He would require 2-week outpatient follow-up with his treating neurosurgery for re-evaluation of his injuries. He was assessed by physical and occupational therapy who recommended home PT/OT at discharge. With regards to his questionable abdominal/mesenteric findings, his serial abdominal exams remained benign and white blood cell count remained within normal limits. This finding was determined likely to be chronic and not patient care representative of a mesenteric injury. He tolerated a regular diet without complications. Mr. Henderson was found to have hyponatremia (low blood sodium levels) which were also determined to be chronic based on review of previous medical documentation. His hyponatremia is likely the result of longstanding alcohol abuse. He was placed on daily salt tablets. His blood sodium was 120 on 07/08/2022 and he remained asymptomatic. Given his admitted alcohol abuse, he was also assessed by social work. Mr. Henderson would be discharged home in stable condition on 07/08/2022 with home healthcare services. He would require close outpatient follow-up visits with his treating neurosurgeon and established primary care provider to review his hospital admission, imaging and for continued long-term medical care. OTHER PROBLEMS/DIAGNOSIS: Principal Problem: Ground-level fall Active Problems: Alcohol abuse Hyponatremia Fall down steps Closed fracture of spinous process of cervical vertebra (HCC) Closed displaced fracture of seventh cervical vertebra with routine healing Subluxation of c6/C7 cervical vertebrae, initial encounter Resolved Problems: * No resolved hospital problems. * OPERATIONS PERFORMED WHILE IN THE HOSPITAL: None IMPORTANT TEST/PROCEDURES: No procedures performed TEST RESULTS NOT AVAILABLE AT THIS TIME: No pending results Discharge Disposition Discharge Disposition: Home With Home Care Activity When You Leave the Hospital Do not bend over at the waist to lift heavy objects May bathe and shower No driving for: Until cleared by your spine surgeon. 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 Normal [facility] Hepatic function 2000 panelo n 07-08-2022 Albumin [Mass/Vol] 3.9 g/dL Normal 3.9-4.9 [facility] Comment on above: Order Comment: Speci men Type: BLOOD SPECIMENOrdering Facility: [facility] Address: [address] [place] [address] Performed By: #### 2 4325-3, ####[facility] LABORATORYCLIA [id number] [place] [address] [place] ALP [Catalytic activity/Vol] 107 U/L Normal 38-113 [facility] Comment on above: Order Comment: Speci men Type: BLOOD SPECIMENOrdering Facility: [facility] Address: [address] [place] [address] Performed By: #### 2 4325-3, 89137-7 ####[facility] LABORATORYCLIA [id number] [address] STATES [facility] ALT With P-5'-P [Catalytic activity/Vol] Normal [facility] Comment on above: Order Comment: Speci men Type: BLOOD SPECIMENOrdering Facility: [facility] Address: [address] [place] [address] Result Comment: Unab le to assay due to interference from hemolysis. Suggest reorder as clinically indicated. Performed By: #### 2 4325-3, 27152-2 ####[facility] LABORATORYCLIA [id number] [address] [place] AST With P-5'-P [Catalytic activity/Vol] Normal [facility] Comment on above: Order Comment: Speci men Type: BLOOD SPECIMENOrdering Facility: [facility] Address: [address] [place] [address] Result Comment: Unab le to assay due to interference from hemolysis. Suggest reorder as clinically indicated. Performed By: #### 2 4325-3, 81964-3 ####[facility]ORATORYCLIA [id number] [address] Bilirubin [Mass/Vol] 0.7 mg/dL Normal 0.2-1.3 [facility] Comment on above: Order Comment: Speci men Type: BLOOD SPECIMENOrdering Facility: [facility] [facility] Address: [address] [place] [address] Performed By: #### 2 4325-3, 12575-5 ####[facility] LABORATORYCLIA [id number] [address] Bilirubin.conjugat ed [Mass/Vol] Normal [facility] Comment on above: Order Comment: Speci men Type: BLOOD SPECIMENOrdering Facility: [facility] Address: [address] [place] [address] Result Comment: Unab le to assay due to interference from hemolysis. Suggest reorder as clinically indicated. Performed By: #### 2 4325-3, 83360-8 ####[facility] LABORATORYCLIA [id number] [address] [facility] Protein [Mass/Vol] 7.3 g/dL Normal 6.3-8.0 [facility] Comment on above: Order Comment: Speci men Type: BLOOD SPECIMENOrdering Facility: [facility] Address: [place] [address] Performed By: #### 2 4325-3, 78615-1 ####[facility] LABORATORYCLIA [id number] [address] THERAPY NTon 07-08-2022 THERAPY NT HNO ID: [id number] Author: Sia Tee, PT Service: Physical Therapy Author Type: Physical Therapist Type: Therapy (PT/OT/Speech/Resp) Filed: 07/08/2022 11:56 AM Note Text: Physical Therapy Evaluation SERVICE DATE: 07/08/2022 SERVICE TIME: 1122 to 1145 ROOM: [place] [address] Recommended Discharge Disposition: Home PT Recommended Discharge Disposition Comments: home safety and other equipment needs Anticipated Discharge Needs: Physical Assist at Home Physical Assist at Home for: Self Care, Cleaning, Laundry, Meals, Shopping, Transportation PT 6 Clicks Score: 20 Precautions/Activity Restrictions: Brace, Fall Risk Precaution/Activity Restriction 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 +C4 spinous process fx, C7 vertical bocy fx, C6/7 R facet fx with subluxation; T1, T2 compression fx's. Non-op management Reason for Hospital Admission: fall down stairs Relevant Past Medical History: ETOH, hyponatremia, HTN, BPH, anemia Response to Therapy Interventions: Good participation in activities Treatment Interventions: Education Home Environment Patient Lives With: Self/Alone Assistance Available: PRN, Other: See Comment Comments: neighbor can check on pt Entry To Home: Stairs Number Of Stairs Into Home: 13 Number Of Stairs To Bed/Bath: 0 Tub/Shower Type: tub/shower Equipment Owned: Grab Bars- Shower Prior Functional Level: Within Functional Limits Prior Functional Level Comments: Independent Baseline Cognition: Oriented to place, Oriented to self, Oriented to time Patient Report: c/o pain but agreeable to PT/mobility CURRENT FUNCTIONAL STATUS: Most recent performance Current Functional Mobility Assist Level Additional Information Rolling Supine to Sit Stand By Assistance Sit to Supine Stand By Assistance Scooting Sit to Stand Contact Guard Assistance Stand to Sit Stand By Assistance Bed to Chair Toilet/Commode Gait Contact Guard Assistance, Stand By Assistance Gait Device: None Gait Distance (feet): 52A unit Stairs Contact Guard Assistance, Stand By Assistance Stairs Device: Rail Number of Stairs: 12 Curb Step Car Transfer Range of Motion: WFL Strength: WFL JH-HLM: 8: Walk 250 feet or more Learning/Educational Needs: Discharge Plan, Functional Activities/Mobility, Plan of Care, Precautions, Safety Goals for Plan of Care: Patient/Caregiver Goals: Go Home Patient will be discontinued from Physical Therapy when no further skilled needs are identified in this setting. PLAN: PT Frequency: Discontinue therapy services Reasons Therapy Services Discontinued: (doing well with mobility after spinal fxs) Plan of Care developed with: Patient TREATMENT INTERVENTIONS: Therapy Diagnosis: Reduced mobility-other Interventions Provided: Evaluation, Therapeutic Activity (91946) $ Evaluation-Moderate (64553) Billed Units: 1 unit Therapeutic Activity (21314) Treatment Minutes: 8 $ Therapeutic Activity (23767) Billed Units: 1 unit Mobility per above grid Educated on spine precautions--discussed with functional mobility tasks Instruct in sharad/doange LOGISTICS PROGRAM MANAGER; proper wear and use--pt having difficulty using esther and positioning correctly Ambulate on unit and complete steps multiple trials Training AND education provided in: Bed mobility, Benefits of in-hospital mobility, Discharge planning, Disease specific education, Role of Physical Therapy, Transfers, Home safety, Falls prevention The following therapeutic skills were used: Activity dosing, Assessment of tolerance including vitals response to activity, Cues for sequencing/proper technique for activity, Physical assist, Movement facilitation Timed Code Treatment (minutes): 8 Skilled Treatment Time (minutes): 23 Please see discipline specific clinical documentation flowsheet for complete details for this therapy evaluation/treatment. SIGNATURE: Sia Tee PT PATIENT NAME: Yaritza Henderson DATE: July 08, 2022 TIME: 11:54 AM Normal [facility] THERAPY NT HNO ID: [id number] Author: CRYSTAL Lambert/L Service: Occupational Therapy Author Type: Occupational Therapist Type: Therapy (PT/OT/Speech/Resp) Filed: 07/08/2022 10:23 AM Note Text: Occupational Therapy Evaluation SERVICE DATE: 07/08/2022 SERVICE TIME: 0930 to 1000 ROOM: [id number] Recommended Discharge Disposition: Home OT Recommended Discharge Disposition Comments: Pt will benefit from Home safety eval, DENTAL SCHEDULING COORDINATOR to maximize independence with ADLs at home Anticipated Discharge Needs: Physical Assist at Home Physical Assist at Home for: Self Care, Safety, Laundry, Cleaning OT 6 Clicks Score: 17 Instructed in post-op instructions during ADLs to maintain BLT precautions. Allowed time for teach-back. Provided instruction re: brace management. Pt requires moderate to maximal assist to don brace. Difficulty lining up esther despite adaptations and will need increased assist with this at home. Will benefit from DENTAL SCHEDULING COORDINATOR to assist with brace management after bathing tasks, as pt does not have reliable assist at home. Provided instruction, cuing and facilitation for lower body dressing via figure-4 technique. Allowed time for patient to simulatex Provided instruction, cuing and facilitation for bathing and safety with transfers in/out of tub at home. Recommended pt have assist and supervision from family to maximize safety. Education in car transfer technique. Addressed car setup and educated on sequence of transfer. Handout issued re: post op precautions. Discussed potential hazards at home. Reports increased pain and requesting return to bed following session. Will continue to address ADL deficits this admit. Anticipate home. 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 +C4 spinous process fx, C7 vertical bocy fx, C6/7 R facet fx with subluxation; T1, T2 compression fx's. Non-op management Reason for Hospital Admission: fall down stairs Relevant Past Medical History: ETOH, hyponatremia, HTN, BPH, anemia Response to Therapy Interventions: Good participation in activities, Needs frequent redirection or re-instruction, Requires additional time to complete activities Continue skilled needs due to: Functional impairment, Cognitive deficits, Safety concerns Occupational Therapy Problem List: Education Deficit, Safety Deficits, Impaired Self Care, Decreased Activity Tolerance Cognition/Communication Deficits Responsiveness: Alert, Awake Follows Commands: 2-step Commands, Cueing Needed Cueing to Follow Commands: Minimum Attention Deficits: Divided Executive Function Deficits: Safety Awareness Safety Awareness Deficit: Minimal impairment Treatment Interventions: Education, Self Care / Home Management, Functional Mobility Training, Cognitive Training Home Environment Patient Lives With: Self/Alone Assistance Available: PRN, Other: See Comment Comments: neighbor can check on pt Entry To Home: Stairs Number Of Stairs Into Home: 13 Number Of Stairs To Bed/Bath: 0 Tub/Shower Type: tub/shower Equipment Owned: Grab Bars- Shower Prior Functional Level: Within Functional Limits Prior Functional Level Comments: Independent Baseline Cognition: Oriented to place, Oriented to self, Oriented to time Occupational Factors Life Roles: Friend Identified Strengths: Access to Healthcare, Follows Multi-Step Commands, Motivation Identified Barriers: Limited Social Support Patient Report: Awake, agreeable to OT session CURRENT FUNCTIONAL STATUS: Most recent performance Current Activities of Daily Living Assist Level Additional Information Feeding Set Up Grooming Minimal Assistance Bathing Upper Body Minimal Assistance Bathing Lower Body Minimal Assistance Dressing Upper Body Moderate Assistance, Additional Information moderate assist for brace management. Increased difficulty donning-lining up and fastening esther Dressing Lower Body Minimal Assistance Toileting Contact Guard Assistance Instrumental Activities of Daily Living Assist Level Additional Information Meal/Beverage Prep Cleaning Laundry Medication Management with Strategies Functional Mobility Assist Level Additional Information Rolling Contact Guard Assistance, Additional Information via log roll technique after education Supine to Sit Contact Guard Assistance Sit to Supine Contact Guard Assistance Scooting Sit to Stand Contact Guard Assistance Stand to Sit Contact Guard Assistance Bed to Chair Toilet/Commode Contact Guard Assistance Shower Functional Mobility Contact Guard Assistance Blank lock indicate activity not attempted Range of Motion: ROM Limitation Comments ROM Limitation Comments: WFL within limits of spine precautions Strength: Strength Limitation Comments Strength Limitation Comments: WFL within limits of s (more content not included)... Normal [facility] THERAPY NT HNO ID: [id number] Author: Syeda Hess [facility]TECHNOLOGY TRAINING ASSOCIATE Service: Speech/Swallow Author Type: Speech Language Pathologist Type: Therapy (PT/OT/Speech/Resp) Filed: 07/08/2022 9:41 AM Note Text: Speech Therapy Clinical Swallow Evaluation SERVICE DATE: 07/08/2022 SERVICE TIME: 849 to 904 ROOM: [id number] IMPRESSION: Functional oropharyngeal phases of swallowing: without identified risk for aspiration Diet Recommendations: Regular Consistency Thin Liquids IDDSI Level 0 Swallowing Precautions Recommendations: Alternate bites and sips Feed / Eat at a slow rate Sit upright 90 degrees for all PO Small Bite/Sip Supervision/Assistance for meals Recommended Discharge Disposition: Home Current Hospital Course: Patient admitted on 07/06. 07/06 MRI cervical spine: Acute/subacute mild anterior wedge compression fractures of the C7 vertebral body. Acute/subacute minimal anterior wedge compression fractures of the T1 and T2 vertebral bodies. Multilevel degenerative changes of the cervical and thoracic spine, most pronounced at C5-C6 with severe spinal canal stenosis and severe bilateral neural foraminal narrowing. Reason for Hospital Admission: Ground Level Fall Rehabilitation Precautions: Spine Reason for Speech Therapy Consult: C-spine fx: assess swallowing Relevant Past Medical History: Alcohol abuse, Ex-smoker Response to Therapy Interventions: Good Participation in activities, Multiple medical concerns Patient Report: I feel the best I've felt so far. Current Status Oral Hygiene: Clear, moist oral cavity, Oral Health Assessment Tool (OHAT) Dentition: Dentures-Upper Partial, Retains Natural Dentition, Miscellaneous Missing Teeth, Dental Decay, Dental Carries / Cavities Current Feeding Method: Oral Current Diet Textures: Regular Consistency, Thin Liquids IDDSI Level 0 Current Level Of Communication: Verbal Current Management Of Secretions: Able to expectorate adequately Oral Motor Exam: Within Functional Limits Oral Health Assessment Tool (OHAT) Lips: 0 Tongue: 0 Gums and Tissues: 0 Saliva: 0 Natural Teeth: 2 Dentures: 0 Oral Cleanliness: 0 Dental Pain: 0 OHAT Total Score: 2 0 = Healthy 1 = Changes 2 = Unhealthy Swallow Position Of Patient During Assessment: Upright In Bed Consistencies Presented: Thin Liquids IDDSI Level 0, Pureed IDDSI Level 4, Solid Compensatory Strategies Utilized During Assessment: Alternate bites and sips, Feed / Eat at a slow rate, Sit upright 90 degrees for all PO, Small Bite/Sip, Supervision/Assistance for meals. Clinical Swallow Oral Pharyngeal Swallow Assessment: Within Functional Limits -Patient alert, up in bed on TECHNOLOGY TRAINING ASSOCIATE arrival, agreeable to evaluation -Able to feed self +Brace and C-collar -Mastication timely for solids -No oral residuals post swallow -Laryngeal movement detected upon palpation of swallow -No cough, throat clear, or change in vocal quality with po trials -Completed 3 oz water challenge with no cough, throat clear, or change in vocal quality -Oropharyngeal swallow function appears clinically WFL at this time -Recommend diet and strategies as above -Cannot rule out aspiration with clinical assessment only, if further concern, recommend instrumental assessment -Will sign off, please re-consult if change in Patient status Patient /Caregiver Goals: Go Home Speech Rehab Potential: Good Patient will be discontinued from speech therapy when no further skilled needs are identified in this setting. PLAN: ST Frequency: Discontinue therapy services Reasons Inpatient Therapy Services Discontinued: Patient appears safe and appropriate re: communication, cognition, and swallow function with the ability to return to a baseline level of function Plan of Care Developed with: Patient Results and Recommendations Discussed With: Patient, Nurse TREATMENT INTERVENTIONS: Therapy Diagnosis: No Skilled Need Interventions Provided: Clinical Swallow Evaluation (00220) $ Clinical Swallow Evaluation (85977) Billed Units: 1 unit Training and education provided in: Swallowing Strategies, Dietary Consistencies, Dysphagia Management The following therapeutic skills were used:: Verbal cuing, Discharge planning, Education on role of discipline / importance of activity Skilled Treatment Time (minutes): 15 Home Environment Prior Functional Level: Within Functional Limits Patient Lives With: Self/Alone Assistance Available: PRN Prior Swallowing Function/Diet Textures: Regular Consistency, Thin Liquids IDDSI Level 0 Please see discipline specific clinical documentation flowsheet for complete details for this therapy evaluation/treatment. SIGNATURE: Syeda Hess [facility]TECHNOLOGY TRAINING ASSOCIATE PATIENT NAME: Yaritza Henderson DATE: July 08, 2022 TIME: 9:40 AM Normal [facility] ALLIED HEALTHon 07-07-2022 ALLIED HEALTH HNO ID: [id number] Author: RT Daisy(R) Service: Radiology Author Type: Technologist Type: Allied Health Filed: 07/07/2022 5:41 PM Note Text: Radiology Service Progress Note PATIENT NAME: Yaritza Henderson DATE OF SERVICE: July 07, 2022 TIME: 5:38 PM PATIENT IDENTITY VERIFICATION COMPLETED USING TWO (2) IDENTIFIERS: Name and Date of confirmed by patient verbally and Name and Date of confirmed by identification band. FALL SCREENING: Has the patient had 2 falls in the last year or 1 fall with injury or currently using an Ambulatory Assistive Device (Walker, Cane, Wheelchair, Crutches, etc.)? Inpatient: Screened on floor PATIENT GENDER DATA: Male PATIENT RELEVANT IMPLANT DATA REVIEWED: Not Applicable RADIOLOGY DEPARTMENT: General X-ray: Exam(s) Completed: Spine X-Ray(s): Cervical AP / LAT and Thoracic PERIPHERAL IV DATA: Not applicable SIGNED BY: RT Jorge(R) July 07, 2022 5:38 PM Normal [facility] Basic metabolic 2000 panelon 07-07-2022 Anion gap [Moles/Vol] 8 mmol/L Low 9-18 [facility] Comment on above: Order Comment: Speci men Type: BLOOD SPECIMENOrdering Facility: [facility] Address: [address] [place] [address] Performed By: #### 2 1-2, 70654-2 ####[facility] LABORATORYCLIA [id number] [place] [address] [place] Calcium [Mass/Vol] 8.4 mg/dL Low 8.5-10.2 [facility] Comment on above: Order Comment: Speci men Type: BLOOD SPECIMENOrdering Facility: [facility] Address: [address] [place] [address] Performed By: #### 2 4320-2, 37296-8 ####[facility] LABORATORYCLIA [id number] [place] [address] [place] Chloride [Moles/Vol] 90 mmol/L Low 97-105 [facility] Comment on above: Order Comment: Speci men Type: BLOOD SPECIMENOrdering Facility: [facility] Address: [address] [place] [address] Performed By: #### 2 4320-2, 34127-2 ####[facility]ORATORYCLIA [id number] [place] [address] [place] CO2 [Moles/Vol] 26 mmol/L Normal 22-30 [facility] Comment on above: Order Comment: Speci men Type: BLOOD SPECIMENOrdering Facility: [facility] Address: [address] [place] [address] Performed By: #### 2 4320-2, 46560-3 ####[facility]ORATORYCLIA [id number] [place] [address] [place] Creatinine [Mass/Vol] 1.02 mg/dL Normal 0.73-1.22 [facility] Comment on above: Order Comment: Speci men Type: BLOOD SPECIMENOrdering Facility: [facility] Address: [address] [place] [address] Performed By: #### 2 4321-2, 98590-6 ####[facility] CENTERIA [id number] [address] [place] ESTIMATED GLOMERULAR FILTRATION RATE 80 mL/min/1.73m??? Normal >=60 [facility] Comment on above: Order Comment: Charlene dewitt Type: BLOOD SPECIMENOrdering Facility: [facility] Address: [address] [place] [address] Result Comment: Stormy mated Glomerular Filtration Rate (eGFR) is calculated using the 2020 CKD-EPI creatinine equation. This equation utilizes serum creatinine, sex, and age as parameters. The creatinine assay has traceable calibration to isotope dilution-mass spectrometry. Refer to KDIGO guidelines for clinical interpretation. In patients with unstable renal function, e.g. those with acute kidney injury, the eGFR may not accurately reflect actual GFR. Performed By: #### 2 4321-2, 02168-4 ####[facility] CENTERIA [id number] [place] [address] [place] Glucose [Mass/Vol] 101 mg/dL High 74-99 [facility] Comment on above: Order Comment: Charlene dewitt Type: BLOOD SPECIMENOrdering Facility: [facility] Address: [address] [place] [address] Result Comment: The [place] Diabetes Association (ADA) provides guidance for cutoff values for fasting glucose and random glucose. The ADA defines fasting as no caloric intake for at least 8 hours. Fasting plasma glucose results between 100 to 125 mg/dL indicate increased risk for diabetes (prediabetes). Fasting plasma glucose results greater than or equal to 126 mg/dL meet the criteria for diagnosis of diabetes. In the absence of unequivocal hyperglycemia, results should be confirmed by repeat testing. In a patient with classic symptoms of hyperglycemia or hyperglycemic crisis, random plasma glucose results greater than or equal to 200 mg/dL meet the criteria for diagnosis of diabetes. Reference: Standards of Medical Care in Diabetes 2016, [place] [employer] Association. Diabetes Care. 2016.39(Suppl 1). Performed By: #### 2 4321-2, 24940-2 ####[facility] LABORATORYCLIA [id number] [address] [place] Potassium [Moles/Vol] 3.7 mmol/L Normal 3.7-5.1 [facility] Comment on above: Order Comment: Speci men Type: BLOOD SPECIMENOrdering Facility: [facility] Address: [address] [place] [address] Performed By: #### 2 4321-2, 66996-8 ####[facility] LABORATORYCLIA [id number] [address] [place] Sodium [Moles/Vol] 124 mmol/L Low 136-144 [facility] Comment on above: Order Comment: Speci men Type: BLOOD SPECIMENOrdering Facility: [facility] Address: [address] [place] [address] Performed By: #### 2 4321-2, 27749-8 ####[facility] LABORATORYCLIA [id number] [address] STATES OF [facility] Urea nitrogen [Mass/Vol] 9 mg/dL Normal 9-24 [facility] Comment on above: Order Comment: Speci men Type: BLOOD SPECIMENOrdering Facility: [facility] Address: [address] [place] [address] Performed By: #### 2 4321-2, 27688-3 ####[facility] LABORATORYCLIA [id number] [address] STATES OF [facility] CBC panel Auto (Bld)on 07-07 Erythrocyte distribution width (RBC) [Ratio] 12.0 % Normal 11.5-15.0 [facility] Comment on above: Order Comment: Speci men Type: BLOOD SPECIMENOrdering Facility: [facility] Address: [address] [place] [address] Performed By: #### 5 8410-2 ####[facility] LABORATORYCLIA [id number] [address] [place] Hematocrit (Bld) [Volume fraction] 34.3 % Low 39.0-51.0 [facility] Comment on above: Order Comment: Speci men Type: BLOOD SPECIMENOrdering Facility: [facility] Address: [address] [place] [address] Performed By: #### 5 8410-2 ####[facility] LABORATORYCLIA [id number] [address] STATES OF [facility] Hemoglobin (Bld) [Mass/Vol] 12.2 g/dL Low 13.0-17.0 [facility] Comment on above: Order Comment: Speci men Type: BLOOD SPECIMENOrdering Facility: [facility] Address: [address] [place] [address] Performed By: #### 5 8410-2 ####[facility]ORATORYCLIA [id number] [address] MCH (RBC) [Entitic mass] 32.2 pg Normal 26.0-34.0 [facility] Comment on above: Order Comment: Speci men Type: BLOOD SPECIMENOrdering Facility: [facility] Address: [address] [place] [address] Performed By: #### 5 8410-2 ####[facility] LABORATORYCLIA [id number] [address] MCHC (RBC) [Mass/Vol] 35.6 g/dL Normal 30.5-36.0 [facility] Comment on above: Order Comment: Speci men Type: BLOOD SPECIMENOrdering Facility: [facility] Address: [address] [place] [address] Performed By: #### 5 8410-2 ####[facility] LABORATORYCLIA [id number] [address] STATES [facility] MCV (RBC) [Entitic vol] 90.5 fL Normal 80.0-100.0 [facility] Comment on above: Order Comment: Speci men Type: BLOOD SPECIMENOrdering Facility: [facility] Address: [address] [place] [address] Performed By: #### 5 8410-2 ####[facility]ORATORYCLIA [id number] [address] [place] Platelet mean volume (Bld) [Entitic vol] 8.1 fL Low 9.0-12.7 [facility] Comment on above: Order Comment: Speci men Type: BLOOD SPECIMENOrdering Facility: [facility] Address: [address] [place] [address] Performed By: #### 5 8410-2 ####[facility]ORATORYCLIA [id number] [place] [address] [place] Platelets (Bld) [#/Vol] 241 10*3/uL Normal 150-400 [facility] Comment on above: Order Comment: Speci men Type: BLOOD SPECIMENOrdering Facility: [facility] Address: [address] [place] [address] Performed By: #### 5 8410-2 ####[facility]ORATORYCLIA [id number] 21 [address] STATES [facility] RBC (Bld) [#/Vol] 3.79 10*6/uL Low 4.20-6.00 [facility] Comment on above: Order Comment: Speci men Type: BLOOD SPECIMENOrdering Facility: [facility] Address: [address] [place] [address] Performed By: #### 5 8410-2 ####[facility] LABORATORYCLIA [id number] [address] STATES [place] WBC (Bld) [#/Vol] 7.62 10*3/uL Normal 3.70-11.00 [facility] Comment on above: Order Comment: Speci men Type: BLOOD SPECIMENOrdering Facility: [facility] Address: [address] [place] [address] Performed By: #### 5 8410-2 ####[facility] LABORATORYCLIA [id number] [address] CONSULT PROGon 07-07-2022 CONSULT PROG HNO ID: [id number] Author: Jaycob Lynch APRN.MULTIMEDIA ASSISTANT Service: Neurosurgery Author Type: Nurse Practitioner Type: Consult Progress Note Filed: 07/07/2022 5:24 PM Note Text: PROGRESS NOTE NEUROSURGERY SERVICE DATE: 07/07/2022 SERVICE TIME: 2:00 Subjective INTERVAL HPI JOSEFAnahed awaiting LOGISTICS PROGRAM MANAGER from bridger Current Facility-Administered Medications Medication Dose Route Frequency lisinopril 40 mg tab(s) (ZESTRIL, PRINIVIL) 40 mg ORAL BID amLODIPine 10 mg tab(s) (NORVASC) 10 mg ORAL DAILY thiamine 100 mg tab(s) (VITAMIN B1) 100 mg ORAL DAILY cyanocobalamin 1,000 mcg (VITAMIN B-12) 1,000 mcg ORAL DAILY ondansetron 4 mg tab(s) (ZOFRAN) 4 mg ORAL q 6 H PRN Or ondansetron (PF) 4 mg injection (ZOFRAN) 4 mg INTRAVENOUS q 6 H PRN polyethylene glycol 3350 17 g packet (MIRALAX, GLYCOLAX) 17 g ORAL DAILY acetaminophen 975 mg tab(s) (TYLENOL) 975 mg ORAL q 6 H PRN enoxaparin 30 mg injection (LOVENOX) 30 mg SUBCUTANEOUS q 12 HR sodium chloride 1 g tab(s) 1 g ORAL TID LORazepam 2 mg (ATIVAN) 2 mg ORAL q 1 H PRN thiamine 100 mg tab(s) (VITAMIN B1) 100 mg ORAL/FEEDING TUBE TID Objective Physical Exam Performed: General : Alert, cooperative, appropriate, denies fever, denies chills Skin : CDI Speech : clear Resp : even, unlabored GI : abdomen soft, non-tender, non-distended : Denies incontinence HEENT : Normocephalic. Atraumatic, poor dentition Neck/Back : No midline or paraspinal tenderness. No gross bony deformities. Neuro : A+O x3, PERRL, makes eye contact, speech clear, cranial nerves 2-12 grossly intact , CORDERO, strength 5/5 BUE and BLE and equal Sensation : Sensation grossly intact to light touch BUE and BLE Extremities : Grossly normal. Symmetrical. No edema, deformity, coloration changes. Pulses : 2+ DP, 2+ radial VITAL SIGNS 24 HOUR REVIEW: Patient Vitals for the past 24 hrs: BP Temp Temp src Pulse Resp SpO2 Height Weight 07/07/22 1555 -- -- -- -- -- -- 177.8 cm (5' 10) 83.5 kg (184 lb) 07/07/22 1531 145/82 36.9 ?C (98.4 ?F) Oral 83 18 100 % -- -- 07/07/22 1458 132/73 -- -- 87 -- 97 % -- -- 07/07/22 1328 141/92 -- -- 79 -- 97 % -- -- 07/07/22 1145 -- -- -- 85 -- 97 % -- -- 07/07/22 1030 -- -- -- 83 -- 95 % -- -- 07/07/22 1000 157/92 -- -- 87 -- 98 % -- -- 07/07/22 0852 141/85 -- -- 80 -- 98 % -- -- 07/07/22 0752 142/89 -- -- 81 20 97 % 177.8 cm (5' 10) 83.5 kg (184 lb) 07/07/22 0630 -- -- -- 66 18 96 % -- -- 07/07/22 0500 114/76 -- -- 68 13 97 % -- -- 07/07/22 0400 126/80 -- -- 74 18 96 % -- -- 07/07/22 0300 112/85 -- -- 73 13 97 % -- -- 07/07/22 0200 95/66 -- -- 67 14 96 % -- -- 07/07/22 0100 122/75 -- -- 75 13 95 % -- -- 07/07/22 0037 124/74 -- -- 76 13 95 % -- -- 07/07/22 0030 124/74 -- -- -- -- -- -- -- 07/07/22 0000 125/74 -- -- 74 15 95 % -- -- 07/06/22 2300 127/74 -- -- 77 14 97 % -- -- 07/06/22 2200 116/71 -- -- 78 14 97 % -- -- 07/06/22 2100 133/76 -- -- 85 17 98 % -- -- 07/06/22 2000 124/75 -- -- 86 22 97 % -- -- 07/06/22 1900 119/88 -- -- -- -- -- -- -- LABS: CBC, Coags, BMP, Mg, Phos Recent Labs 07/07/22 0402 07/06/22 1031 WBC 7.62 9.19 HB 12.2* 13.2 HCT 34.3* 36.9* PLT 241 263 INR -- 1.0 APTT -- 30.1 NA 124* 119* K 3.7 3.5* CHLOR 90* 85* CO2 26 23 BUN 9 8* CREAT 1.02 0.98 GLUC 101* 111* CA 8.4* 9.0 DATA: Diagnostic tests reviewed for today's visit: Most recent labs and imaging results. IMPRESSION: Acute/subacute mild anterior wedge compression fractures of the C7 vertebral body. Acute/subacute minimal anterior wedge compression fractures of the T1 and T2 vertebral bodies. Multilevel degenerative changes of the cervical and thoracic spine, most pronounced at C5-C6 with severe spinal canal stenosis and severe bilateral neural foraminal narrowing. Cervical Anatomic Variant: None. Assume 7 cervical vertebrae with counting from the craniocervical junction. Anatomic Thoracic/Lumbar Variant: Splicing Machine Operator: SWATI Transcribe Date/Time: Jul 06 2022 6:57P Assessment/Plan Yaritza Henderson is a 66 year old male who presents after a fall down 13 stairs while intoxicated. Patient with C4 spinous process fracture, C7 vertical body fracture and C6/C7 right facet fracture with subluxation. MRI shows further T1 T2 compression fractures -Neuro intact -Pain control: per primary -Imaging: CT reviewed, Cervical MRI shows stable spine with additional T fractures. -Diet: regular -Activity/bracing: Ordered LOGISTICS PROGRAM MANAGER for fractures -Dispo: Patient is neurologically intact and does not currently require immediate surgical intervention. The patient will require LOGISTICS PROGRAM MANAGER with uprights and if stable will follow up in two weeks in the outpatient setting with further upright xrays to determine healing of fractures. -Discussed with Dr. Estrada. Medication and Non-Pharmacologic VTE Prophylaxis/Anticoagulants Anticoagulant AND Antiplatelet Medications (From admission, onward) Start Dose Route Frequency Last (more content not included)... Normal [facility] ED NOTEon 07-07-2022 ED NOTE HNO ID: [id number] Author: Nilson Scott RN Service: Emergency Medicine Author Type: Registered Nurse Type: ED Notes Filed: 07/07/2022 1:17 PM Note Text: Meal tray cleared [facility] ED NOTE HNO ID: [id number] Author: Elvi Grove, MAGDALENA Service: Emergency Medicine Author Type: Registered Nurse Type: ED Notes Filed: 07/07/2022 9:21 AM Note Text: Breakfast tray given to pt. [facility] ED NOTE HNO ID: [id number] Author: Lindsey Lynn, MAGDALENA Service: ? Author Type: Registered Nurse Type: ED Notes Filed: 07/07/2022 12:29 AM Note Text: Bed: [facility] Expected date: Expected time: Means of arrival: Comments: Back room [facility] ED NOTE HNO ID: [id number] Author: Nela Aldana RN Service: Emergency Medicine Author Type: Registered Nurse Type: ED Notes Filed: 07/06/2022 11:30 PM Note Text: Report from Caro NICHOLS [facility] Hepatic function 2000 panelo n 07-07-2022 Albumin [Mass/Vol] 3.5 g/dL Low 3.9-4.9 [facility] Comment on above: Order Comment: Speci men Type: BLOOD SPECIMENOrdering Facility: [facility] Address: [address] [place] [address] Performed By: #### 2 4321-2, 08990-6 ####[facility] LABORATORYCLIA [id number] [address] STATES OF [facility] ALP [Catalytic activity/Vol] 112 U/L Normal 38-113 [facility] Comment on above: Order Comment: Speci men Type: BLOOD SPECIMENOrdering Facility: [facility] Address: [address] [place] [address] Performed By: #### 2 4321-2, 18167-1 ####[facility] LABORATORYCLIA [id number] [address] ALT With P-5'-P [Catalytic activity/Vol] 12 U/L Normal 10-54 [facility] Comment on above: Order Comment: Speci men Type: BLOOD SPECIMENOrdering Facility: [facility] Address: [address] [address] Performed By: #### 2 4320-2, 66794-0 ####[facility] LABORATORYCLIA [id number] [address] STATES OF [facility] AST With P-5'-P [Catalytic activity/Vol] 24 U/L Normal 14-40 [facility] Comment on above: Order Comment: Speci men Type: BLOOD SPECIMENOrdering Facility: [facility] Address: [address] [address] Performed By: #### 2 2, 71703-4 ####[facility] LABORATORYCLIA [id number] [address] [place] Bilirubin [Mass/Vol] 1.2 mg/dL Normal 0.2-1.3 [facility] Comment on above: Order Comment: Speci men Type: BLOOD SPECIMENOrdering Facility: [facility] Address: [address] [address] Performed By: #### 2 4320-07, 35797-7 ####[facility] LABORATORYCLIA [id number] [address] [place] Bilirubin.conjugat ed [Mass/Vol] 0.3 mg/dL High <0.2 [facility] Comment on above: Order Comment: Speci men Type: BLOOD SPECIMENOrdering Facility: [facility] Address: [address] [place] [address] Performed By: #### 2 2, 30548-1 ####[facility] LABORATORYCLIA [id number] [address] [place] Protein [Mass/Vol] 6.9 g/dL Normal 6.3-8.0 [facility] Comment on above: Order Comment: Speci men Type: BLOOD SPECIMENOrdering Facility: [facility] Address: [address] [address] Performed By: #### 2 4320-2, 67510-9 ####[facility] LABORATORYCLIA [id number] [place] [address] [place] XR CERVICAL 2V AP/LATon XR CERVICAL 2V AP/LAT * * *Final Report* * * DATE OF EXAM: Jul 07 2022 5:43PM [id number] - XR CERVICAL 2V AP/LAT / PROCEDURE REASON: Spine fracture, cervical, traumatic * * * * Physician Interpretation * * * * EXAMINATION: XR CERVICAL 2V AP/LAT Clinical History: Spine fracture, cervical, traumatic Upright xr in brace Comparison: MRI cervical spine on 07/06/2022. CT cervical spine 07/06/2022. RESULT: Cervical spine is visualized through inferior aspect of C7. No evidence of significant interval vertebral body height loss involving known C7 fracture. Moderate multilevel degenerative changes of the cervical spine. IMPRESSION: No evidence of significant interval vertebral body height loss involving known C7 fracture. Splicing Machine Operator: SWATI Transcribe Date/Time: Jul 08 2022 10:45A Dictated by : TIKA SELF MD This examination was interpreted and the report reviewed and electronically signed by: TIKA SELF MD on Jul 08 2022 10:49AM EST [id number] Normal [facility] XR THORACIC 2V AP/LATon XR THORACIC 2V AP/LAT * * *Final Report* * * DATE OF EXAM: Jul 07 2022 5:43PM [id number] - XR THORACIC 2V AP/LAT / PROCEDURE REASON: Spine fracture, thoracic, traumatic * * * * Physician Interpretation * * * * EXAMINATION: XR THORACIC 2V AP/LAT Clinical History: Spine fracture, thoracic, traumatic Upright xr in brace Comparison: MRI thoracic spine on 07/06/2022. RESULT: Upper thoracic vertebral bodies are obscured on the lateral view secondary to overlying soft tissue and osseous structures. No gross evidence of interval vertebral body height loss involving previously described T1 and T2 vertebral body wedge compressions. Mild scoliotic curvature. No evidence of significant spondylolisthesis within thoracic spine. Multilevel degenerative changes. IMPRESSION: No gross evidence of interval vertebral body height loss involving previously described T1 and T2 vertebral body wedge compressions. Additional findings, as detailed above. Splicing Machine Operator: [facility]IDGE HOSPITALHayde Transcribe Date/Time: Feb 8 2023 10:49A Dictated by : TIKA SELF MD This examination was interpreted and the report reviewed and electronically signed by: TIKA SELF MD on Jul 08 2022 10:51AM EST [id number] [facility] HEALTHon 07-06-2022 ALLIED HEALTH HNO ID: [id number] Author: RT Kaci(R) Service: Radiology Author Type: Technologist Type: Allied Health Filed: 07/06/2022 6:06 PM Note Text: Radiology Service Progress Note PATIENT NAME: Yaritza Henderson DATE OF SERVICE: July 06, 2022 TIME: 6:06 PM PATIENT IDENTITY VERIFICATION COMPLETED USING TWO (2) IDENTIFIERS: Name and Date of confirmed by patient verbally and Name and Date of confirmed by identification band. FALL SCREENING: Has the patient had 2 falls in the last year or 1 fall with injury or currently using an Ambulatory Assistive Device (Walker, Cane, Wheelchair, Crutches, etc.)? Emergency Room Patient: Screened in ED PATIENT GENDER DATA: Male PATIENT RELEVANT IMPLANT DATA REVIEWED: Not Applicable RADIOLOGY DEPARTMENT: MR; Exam(s) Completed: Spine: Cervical spine and Thoracic spine PERIPHERAL IV DATA: Inpatient: see LDA documentation SIGNED BY: RT Kaci(R) July 06, 2022 6:06 PM [facility] HNO ID: [id number] Author: Karol Nicole RT(R) Service: Radiology Author Type: Technologist Type: Allied Health Filed: 05/18/2023 6:54 AM Note Text: Radiology Service Progress Note DATE OF SERVICE: July 06, 2022 TIME: 1:53 PM PATIENT IDENTITY VERIFICATION COMPLETED USING TWO (2) STANDARD IDENTIFIERS: Name and Date of confirmed by patient verbally and Name and Date of confirmed by identification band. FALL SCREENING: Has the patient had 2 falls in the last year or 1 fall with injury or currently using an Ambulatory Assistive Device (Walker, Cane, Wheelchair, Crutches, etc.)? Emergency Room Patient: Screened in ED PATIENT GENDER DATA: Male PATIENT RELEVANT IMPLANT DATA REVIEWED: Not Applicable ALLERGIES: Reviewed and unchanged CONTRAST ALLERGY: NO. EXAM: CT -CONTRAST INDUCED NEPHROPATHY RISK FACTORS: Patient age > 60 years CREATININE: Creatinine Date Value Ref Range Status 07/06/2022 0.98 0.73 - 1.22 mg/dL Final 06/30/2022 1.13 0.73 - 1.22 mg/dL Final 06/08/2022 1.25 (H) 0.73 - 1.22 mg/dL Final Estimated Glomerular Filtration Rate Date Value Ref Range Status 07/06/2022 84 >=60 mL/min/1.73m? Final Comment: Estimated Glomerular Filtration Rate (eGFR) is calculated using the 2020 CKD-EPI creatinine equation. This equation utilizes serum creatinine, sex, and age as parameters. The creatinine assay has traceable calibration to isotope dilution-mass spectrometry. Refer to KDIGO guidelines for clinical interpretation. In patients with unstable renal function, e.g. those with acute kidney injury, the eGFR may not accurately reflect actual GFR. eGFR- Date Value Ref Range Status 06/03/2021 >60 Final P.O.C.T. RESULTS: N/A July 06, 2022 TREATMENT: N/A PERIPHERAL IV DATA: Inpatient - refer to LDA documentation RADIOLOGY DEPARTMENT: CT; Exam(s) Completed: Chest Abdomen Pelvis, CTA Brain , CTA Neck , and Spine SIGNATURE: RT Bernardo(R) PATIENT NAME: Yaritza Henderson DATE: July 06, 2022 TIME: 1:53 PM [facility] ALLIED HEALTH HNO ID: [id number] Author: [place] Andrews) Service: ? Author Type: Ordained Minister Type: Allied Health Filed: 07/06/2022 11:08 AM Note Text: Radiology Service Progress Note PATIENT NAME: Yaritza Henderson DATE OF SERVICE: July 06, 2022 TIME: 11:08 AM PATIENT IDENTITY VERIFICATION COMPLETED USING TWO (2) IDENTIFIERS: Name and Date of confirmed by patient verbally and Name and Date of confirmed by identification band. FALL SCREENING: Has the patient had 2 falls in the last year or 1 fall with injury or currently using an Ambulatory Assistive Device (Walker, Cane, Wheelchair, Crutches, etc.)? Emergency Room Patient: Screened in ED PATIENT GENDER DATA: Male PATIENT RELEVANT IMPLANT DATA REVIEWED: Not Applicable RADIOLOGY DEPARTMENT: General X-ray: Exam(s) Completed: Chest X-Ray PERIPHERAL IV DATA: Not applicable SIGNED BY: Cici Escalera RT(R) July 06, 2022 11:08 AM Normal [facility] Abdomen/Pelvis W IV Cont ONL Yon 07-06-2022 Abdomen/Pelvis W IV Cont ONLY [facility] [address] [place] [address] Abdomen/Pelvis W IV Cont ONLY MR#: [id number] Acct: [id number] Name: YARITZA HENDERSON Rep #: [id number] : 1955 M 66 From: Ubaldo mckeon MD PCP: Dr. rFedrick Feliciano MD Status: DEP ER Study: Abdomen/Pelvis W IV Cont ONLY Date of Exam: Exam# [id number] Ordering Dr: Bravo Wesley DO STUDY: CT ABDOMEN AND PELVIS WITH CONTRAST REASON FOR EXAM: Male, 66 years old. Abdominal pain. RADIATION DOSAGE (If Supplied By Facility): CTDIvol = ( 13.71 ) mGy, DLP = ( 879.20 ) mGycm TECHNIQUE: Transaxial images were obtained from the dome of the diaphragm to the symphysis pubis without oral contrast. IV 100mL Isovue-370 was administered. Sagittal and coronal images were reconstructed. Individualized dose optimization techniques were used for this CT. COMPARISON: None. FINDINGS: Mild increased markings at the lung bases suggestive of left basilar atelectasis. The visualized portions of the heart are within normal limits. Normal liver. Normal gallbladder and extrahepatic biliary system. Normal spleen. Normal pancreas. Normal bilateral adrenal glands. Normal right kidney. Normal left kidney. Increased markings in the mesenteric fat at the level of the root of the mesentery. Small lymph nodes are seen within it. This is a nonspecific finding. Early pancreatitis should be ruled out. There is a small hiatal hernia. There is evidence of a 2.9 cm x 3.5 cm diverticulum in the second portion of the duodenum. Normal small intestine. Normal colon. The appendix is visualized and appears normal. There is scattered atherosclerotic calcification of the abdominal aorta, without a demonstrated aneurysm. Normal inferior vena cava. Normal retroperitoneum. There is a distended urinary bladder. Mild degree of diffuse bilateral wall thickening. The prostate measures 6 cm x 3.3 cm. This causes indentation at the bladder base. There is evidence of a calcification of the vas deferens There is a small umbilical hernia containing fat. Small bilateral inguinal hernias containing fat. There are diffuse degenerative changes of the visualized lumbar spine. CT/Abdomen/Pelvis W IV Cont ONLY IMPRESSION: Nonspecific increased markings in the root of the mesentery as described. Early pancreatitis should BE ruled out. Duodenal diverticulum. Electronically Signed: Ubaldo Ga MD at 9:45 EST , CC: Dr. Fredrick Feliciano MD; Bravo Wesley DO Splicing Machine Operator: Signed Normal [facility] Basic Metabolic Profile (BMP )on 07-06-2022 BUN/CRE 10.1 RATIO Normal 10-20 [facility] Comment on above: Performed By: #### L 500.2500, L501.3620, L100.0100 #### [facility] [address] [place], [address] CA,Total 9.0 mg/dL Normal 8.5-10.1 [facility] Comment on above: Performed By: #### L 500.2500, L501.3620, L100.0100 #### [facility] [address] [place], [address] Chloride [Moles/Vol] 88 mmol/L Low 98-107 [facility] Comment on above: Performed By: #### L 500.2500, L501.3620, L100.0100 #### [facility] [address] [place], [address] CO2 [Moles/Vol] 26.0 mmol/L Normal 21.0-32.0 [facility] Comment on above: Performed By: #### L 500.2500, L501.3620, L100.0100 #### [facility] [address] [place], [address] Creatinine [Mass/Vol] 1.09 mg/dL Normal 0.70-1.30 [facility] Comment on above: Result Comment: The validity of the calculated GFR GFRAA in patients over 70 years has not been determined. Clinical correlation is essential. Performed By: #### L 500.2500, L501.3620, L100.0100 #### [facility] [address] [place], [address] ECRCL 66.97 ml/min Normal [facility] Comment on above: Performed By: #### L 500.2500, L501.3620, L100.0100 #### [facility] [address] [place], [address] EST GFR - AA 86 mL/min Normal >60 [facility] Comment on above: Result Comment: Afri can Gambian GFR Calc Performed By: #### L 500.2500, L501.3620, L100.0100 #### [facility] [address] [place], [address] GAP 9 Normal 5-15 [facility] Comment on above: Performed By: #### L 500.2500, L501.3620, L100.0100 #### [facility] [address] [place], [address] GFR/1.73 sq M.predicted among non-blacks MDRD (S/P/Bld) [Vol rate/Area] 71 mL/min/{1.73_m2} Normal >60 [facility] Comment on above: Result Comment: Non- GFR Calc Performed By: #### L 500.2500, L501.3620, L100.0100 #### [facility] [address] [place], [address] Glucose [Mass/Vol] 115 mg/dL High 74-106 [facility] Comment on above: Result Comment: Fast ing Glucose result from 100 to 125 mg/dL suggests IMPAIRED HOMEOSTASIS per A.D.A. criteria. Performed By: #### L 500.2500, L501.3620, L100.0100 #### [facility] [address] [place], [address] Potassium [Moles/Vol] 3.7 mmol/L Normal 3.5-5.1 [facility] Comment on above: Performed By: #### L 500.2500, L501.3620, L100.0100 #### [facility] [address] [place], [address] Sodium [Moles/Vol] 123 mmol/L Low 136-145 [facility] Comment on above: Performed By: #### L 500.2500, L501.3620, L100.0100 #### [facility] [address] [place], [address] Urea nitrogen [Mass/Vol] 11 mg/dL Normal 7-18 [facility] Comment on above: Performed By: #### L 500.2500, L501.3620, L100.0100 #### [facility] [address] [place], [address] Brain/Head without Contrasto n 07-06-2022 Brain/Head without Contrast [facility] [address] [place] [address] Brain/Head without Contrast MR#: [id number] Acct: [id number] Name: YARITZA HENDERSON Winsome Rep #: [id number] : 1955 M 66 From: Elia Palomares MD PCP: Dr. Fredrick Feliciano MD Status: REG ER Study: Brain/Head without Contrast Date of Exam: 11/20 Exam# [id number] Ordering Dr: Bravo Wesley DO EXAM: CT brain without IV contrast. HISTORY: head trauma TECHNIQUE: No intravenous contrast. A radiation dose optimization technique was used for this scan. COMPARISON: None. LIMITATIONS: None. BRAIN: Mild involutional change. Moderate low attenuation bilaterally within the deep white matter, likely secondary to chronic microvascular ischemia. VENTRICLES: No hydrocephalus. EXTRA-AXIAL SPACES: No acute hemorrhage. CALVARIUM/SKULL BASE: No acute fracture. Right temporal craniotomy. FACE/SINUSES: Fluid in the left maxillary sinus. Old nasal bone fractures. Old fracture of the medial wall of the left orbit. SOFT TISSUES: Normal. OTHER: None. CONCLUSION: No acute intracranial abnormality. Electronically Signed: Elia Palomares MD at 7:21 EST , CT/Brain/Head without Contrast IMPRESSION: undefined CC: Dr. Fredrick Feliciano MD; Bravo Wesley DO Splicing Machine Operator: Signed Normal [facility] CBC W/Diff, Automatedon Absolute Lymph 0.86 X10 3/uL Normal 0.83-4.51 [facility] Comment on above: Performed By: #### L 500.2500, L501.3620, L100.0100 #### [facility] [address] [place], [address] Absolute Neut 6.8 X10 3/uL Normal 2.0-7.7 [facility] Comment on above: Performed By: #### L 500.2500, L501.3620, L100.0100 #### [facility] [address] [place], [address] Basophils/100 WBC (Bld) 0.3 % Normal 0-1 [facility] Comment on above: Performed By: #### L 500.2500, L501.3620, L100.0100 #### [facility] [address] [place], [address] Eosinophils/100 WBC (Bld) 0.5 % Normal 0-5 [facility] Comment on above: Performed By: #### L 500.2500, L501.3620, L100.0100 #### [facility] [address] [place], [address] Erythrocyte distribution width (RBC) [Ratio] 11.9 % Normal 11.6-14.6 [facility] Comment on above: Performed By: #### L 500.2500, L501.3620, L100.0100 #### [facility] [address] [place], [address] Hematocrit (Bld) [Volume fraction] 37.5 % Low 40-54 [facility] Comment on above: Performed By: #### L 500.2500, L501.3620, L100.0100 #### [facility] [address] [place], [address] Hemoglobin (Bld) [Mass/Vol] 13.6 g/dL Normal 13.0-16.5 [facility] Comment on above: Performed By: #### L 500.2500, L501.3620, L100.0100 #### [facility] [address] [place], [address] IG% 0.400 Normal 0.0-0.9 [facility] Comment on above: Result Comment: IG% - Immature Granulocytes (promyelocytes, myelocytes and metamyelocytes) > 1% indicates that a LEFT SHIFT is Present. Performed By: #### L 500.2500, L501.3620, L100.0100 #### [facility] [address] [place], [address] Lymphocytes/100 WBC (Bld) 9.4 % Low 19-41 [facility] Comment on above: Performed By: #### L 500.2500, L501.3620, L100.0100 #### [facility] [address] [place], [address] MCH (RBC) [Entitic mass] 32.2 pg High 27.0-32.0 [facility] Comment on above: Performed By: #### L 500.2500, L501.3620, L100.0100 #### [facility] [address] [place], [address] MCHC (RBC) [Mass/Vol] 36.3 g/dL High 32-36 [facility] Comment on above: Performed By: #### L 500.2500, L501.3620, L100.0100 #### [facility] [address] [place], [address] MCV (RBC) [Entitic vol] 88.9 fL Normal 80-94 [facility] Comment on above: Performed By: #### L 500.2500, L501.3620, L100.0100 #### [facility] [address] [place], [address] Monocytes/100 WBC (Bld) 14.8 % High 0-10 [facility] Comment on above: Performed By: #### L 500.2500, L501.3620, L100.0100 #### [facility] [address] [place], [address] Neutrophils/100 WBC (Bld) 74.6 % High 47-70 [facility] Comment on above: Performed By: #### L 500.2500, L501.3620, L100.0100 #### [facility] [address] [place], [address] Nucleated RBC (Bld) [#/Vol] 0 10*3/uL Normal 0-5 [facility] Comment on above: Performed By: #### L 500.2500, L501.3620, L100.0100 #### [facility] [address] [place], [address] Platelet mean volume (Bld) [Entitic vol] 7.8 fL Normal 6.2-12.0 [facility] Comment on above: Performed By: #### L 500.2500, L501.3620, L100.0100 #### [facility] [address] [place], [address] Platelets (Bld) [#/Vol] 281 10*3/uL Normal 150-450 [facility] Comment on above: Performed By: #### L 500.2500, L501.3620, L100.0100 #### [facility] [address] [place], [address] RBC (Bld) [#/Vol] 4.22 10*6/uL Low 4.6-6.2 [facility] Comment on above: Performed By: #### L 500.2500, L501.3620, L100.0100 #### [facility] [address] [place], [address] RDW SD 38.5 fl Normal 35.1-43.9 [facility] Comment on above: Performed By: #### L 500.2500, L501.3620, L100.0100 #### [facility] [address] [place], [address] WBC (Bld) [#/Vol] 9.1 10*3/uL Normal 4.4-11.0 [facility] Comment on above: Performed By: #### L 500.2500, L501.3620, L100.0100 #### [facility] [address] [place], [address] CBC panel Auto (Bld)on 07-06 Erythrocyte distribution width (RBC) [Ratio] 12.1 % Normal 11.5-15.0 [facility] Comment on above: Order Comment: Speci men Type: BLOOD SPECIMENOrdering Facility: [facility] Address: [address] [place] [id number] Performed By: #### 5 8410-2 ####[facility]ORYCLIA [id number] [address] Hematocrit (Bld) [Volume fraction] 36.9 % Low 39.0-51.0 [facility] Comment on above: Order Comment: Speci men Type: BLOOD SPECIMENOrdering Facility: [facility] Address: [address] [place] [address] Performed By: #### 5 8410-2 ####[facility]ATORYCLIA [id number] [address] Hemoglobin (Bld) [Mass/Vol] 13.2 g/dL Normal 13.0-17.0 [facility] Comment on above: Order Comment: Speci men Type: BLOOD SPECIMENOrdering Facility: [facility] Address: [address] [place] [address] Performed By: #### 5 8410-2 ####[facility]ATORYCLIA [id number] [address] MCH (RBC) [Entitic mass] 32.1 pg Normal 26.0-34.0 [facility] Comment on above: Order Comment: Speci men Type: BLOOD SPECIMENOrdering Facility: [facility] Address: [address] [place] [address] Performed By: #### 5 8410-2 ####[facility]ORATORYCLIA [id number] [address] [place] MCHC (RBC) [Mass/Vol] 35.8 g/dL Normal 30.5-36.0 [facility] Comment on above: Order Comment: Speci men Type: BLOOD SPECIMENOrdering Facility: [facility] Address: [address] [place] [address] Performed By: #### 5 8410-2 ####[facility]ATORYCLIA [id number] [address] MCV (RBC) [Entitic vol] 89.8 fL Normal 80.0-100.0 [facility] Comment on above: Order Comment: Speci men Type: BLOOD SPECIMENOrdering Facility: [facility] Address: [address] [place] [address] Performed By: #### 5 8410-2 ####[facility]ATORYCLIA [id number] [address] [place] Nucleated RBC (Bld) [#/Vol] 10*3/uL Normal <0.01 [facility] Comment on above: Order Comment: Speci men Type: BLOOD SPECIMENOrdering Facility: [facility] Address: [address] [place] [address] Performed By: #### 5 8410-2 ####[facility]ATORYCLIA [id number] [address] [place] Platelet mean volume (Bld) [Entitic vol] 7.8 fL Low 9.0-12.7 [facility] Comment on above: Order Comment: Speci men Type: BLOOD SPECIMENOrdering Facility: [facility] Address: [address] [place] [address] Performed By: #### 5 8410-2 ####[facility]ATORYCLIA [id number] [address] [place] Platelets (Bld) [#/Vol] 263 10*3/uL Normal 150-400 [facility] Comment on above: Order Comment: Speci men Type: BLOOD SPECIMENOrdering Facility: [facility] Address: [address] [place] [address] Performed By: #### 5 8410-2 ####[facility]ATORYCLIA [id number] [address] [place] RBC (Bld) [#/Vol] 4.11 10*6/uL Low 4.20-6.00 [facility] Comment on above: Order Comment: Speci men Type: BLOOD SPECIMENOrdering Facility: [facility] Address: [address] [place] [address] Performed By: #### 5 8410-2 ####[facility]ATORYCLIA [id number] [address] [place] WBC (Bld) [#/Vol] 9.19 10*3/uL Normal 3.70-11.00 [facility] Comment on above: Order Comment: Speci men Type: BLOOD SPECIMENOrdering Facility: [facility] Address: [address] [place] [address] Performed By: #### 5 8410-2 ####[facility] LABORATORYCLIA [id number] [address] OF [facility] CK SerPl-cCncon 07-06-2022 CK [Catalytic activity/Vol] 546 U/L High 51-298 [facility] Comment on above: Order Comment: Speci men Type: BLOOD SPECIMENOrdering Facility: [facility] Address: [address] [place] [address] Performed By: #### 2 4323-8, 3040-3, 2157-6 ####[facility]ATORYCLIA [id number] [address] CONFIRM BLOOD TYPEon 023 ABO A Normal [facility] Comment on above: Order Comment: Speci men Type: BLOOD SPECIMEN Ordering Facility: [facility] Address: [address] [place] [address] Performed By: #### C ONABO #### [facility] CLIA [id number] [address] Rh Nom (Bld) Positive Normal [facility] Comment on above: Order Comment: Speci men Type: BLOOD SPECIMEN Ordering Facility: [facility] Address: [address] [place] [address] Performed By: #### C ONABO #### [facility] CLIA [id number] [address] CONSULTon 07-06-2022 CONSULT HNO ID: [id number] Author: Ivania Estrada I, MD Service: Neurosurgery Author Type: Physician Type: Consults Filed: 07/09/2022 7:50 AM Note Text: CONSULT: NEUROSURGERY SERVICE Patient Name: Yaritza Henderson Date of : 1955 SERVICE DATE: 07/06/2022 SERVICE TIME: 12:32 PM REASON FOR CONSULT: Traumatic fall down stairs, multiple cervical fractures REQUESTING PHYSICIAN: Kodak Hurst PA-C PRIMARY CARE PHYSICIAN: Fredrick Feliciano MD Consultation requested by Kodak Hurst for an opinion regarding Fall down stairs with multiple cervical fractures. My final recommendations will be communicated back to the requesting physician by way of shared Medical record or letter to requesting physician via [place] mail. CHIEF COMPLAINT: Fall down stairs, on ETOH HISTORY OF PRESENT ILLNESS : The patient is a 66 year old male with chronic ETOH abuse, reports about 12 beers daily, fell down stairs on Wednesday night and laid till Wednesday due to pain in his cervical spine and thoracic spine. PMH of fatty alcoholic liver disease with ETOH abuse and HTN. On assessment the patient is alert and oriented x 3 and is able to provide medical history. He denies any radiating upper or lower extremity weakness and denies weakness. He endorses neck pain with movement and mid thoracic pain. The patient is unsure if he lost consciousness at any point but reports he laid at the bottom of the stairs for some time. On CT he demonstrates C4 spinous process fracture as well as C7 PAST MEDICAL HISTORY Diagnosis Date Advance directive discussed with patient 11/19/2021 Discussed 10/2021 Alcohol abuse 04/25/2018 Alcohol abuse 04/25/2018 12 pck per day since around 2014 (maybe longer) Benign prostatic hyperplasia without lower urinary tract symptoms 08/01/2019 Elevated alkaline phosphatase level 06/16/2021 Alcoholic liver disease Elevated LFTs 04/25/2018 Ex-smoker 04/25/2018 Started at 7 yo, 1/2-1 PPD and quit at age 19 Ex-smoker 04/25/2018 Started at 7 yo, 1/2-1 PPD and quit at age 19 Fatty liver, alcoholic 05/08/2018 History of right shoulder fracture Hypertension, essential 02/07/2018 Medicare annual wellness visit, subsequent 08/01/2019 :Medicare Part B: 09/28/2018 Last done: 08/01/2019 Tibia/fibula fracture PAST SURGICAL HISTORY Procedure Laterality Date 2D ECHO (EXEP) 06/21/2020 EF=60%, mild menchaca dysf, 1+ [place] COLONOSCOPY 01/09/2019 Dr. Gonzalez, repeat 10 yrs REMV CATARACT EXTRACAP,INSERT LENS Bilateral Summer/fall of 2021 FAMILY HISTORY Problem Relation Age of Onset No Known Problems Mother when patient was 8 from accident No Known Problems Father No Known Problems Sister unsure of hx No Known Problems Brother doens't know hx No Known Problems Maternal Grandmother doesn't know hx No Known Problems Maternal Grandfather doesn't know hx No Known Problems Paternal Grandmother doesn't know hx No Known Problems Paternal Grandfather doesn't know hx Alzheimer's Disease No Family History Colon Cancer No Family History Prostate Cancer No Family History Coronary Artery Disease No Family History Diabetes No Family History Hypertension No Family History Hyperlipidemia No Family History Kidney Disease No Family History Seizures No Family History Stroke No Family History Thyroid No Family History ALLERGIES No Known Allergies Current Facility-Administered Medications Medication Dose Route Frequency Provider Last Rate Last Admin NaCl 0.9% iv flush bag 20 mL INTRAVENOUS PRN Neri Beltran, DO iv contrast (radiology procedure) INTRAVENOUS DIRECTED PRN Kodak Hurst PAJavedC iv contrast (radiology procedure) INTRAVENOUS DIRECTED PRN Kodak Hurst PAJavedC iv contrast (radiology procedure) INTRAVENOUS DIRECTED PRN DAREK BullC And enteric contrast (radiology procedure) ORAL DIRECTED PRN Kodak Hurst PA-C Current Outpatient Medications Medication Sig Dispense Refill triamterene-hydroCHLOROthiaz mila (MAXZIDE-25) 37.5-25 mg per tablet 1 tablet in the morning Orally Once a day 30 days thiamine (VITAMIN B1) 100 mg tablet Take 1 tablet by mouth once daily. 30 tablet 5 amLODIPine (NORVASC) 10 mg tablet Take 1 tablet by mouth once daily. 30 tablet 5 cyanocobalamin (VITAMIN B-12) 1,000 mcg tab Take 1 tablet by mouth once daily. 30 tablet 5 lisinopril (ZESTRIL, PRINIVIL) 40 mg tablet Take 1 tablet by mouth twice daily. 60 tablet 5 Blood Pressure Monitor kit Take blood pressure daily DX: hypertension 1 Kit 0 COMPOUNDED PRESCRIPTION Take blood pressure daily and write it down 1 Device 0 COMPLETE REVIEW OF SYSTEMS PAIN ASSESSMENT: see HPI GENERAL: No weight loss, malaise or fevers HEENT: Negative for dizziness, blurred vision, double vision NECK: Negative for neck pain or stiffness RESPIRATORY: Negative for cough, wheezing or shortness of breath CARDIOVASCULAR: Negative for chest pain, leg swelling or palpitations GI: Negativ (more content not included)... Normal [facility] CPK Total, Creatine Kinaseon 07-06-2022 CPK TOTAL 624 U/L High 39-308 [facility] Comment on above: Performed By: #### L 500.2500, L501.3620, L100.0100 #### [facility] [address] [place], [address] CT ABD/PEL W IVCONon 023 CT ABD/PEL W IVCON * * *Final Report* * * DATE OF EXAM: Jul 06 2022 2:15PM [facility] 0530 - CT ABD/PEL W IVCON / PROCEDURE REASON: Abdominal trauma, blunt * * * * Physician Interpretation * * * * EXAMINATION: CT CHEST W IVCON, CT ABD/PEL W IVCON, CT LUMBAR SPINE W RECON DATA -NB, CT T-SPINE W RECON DATA -NB CLINICAL HISTORY: Chest trauma, blunt (accession [id number]), Abdominal trauma, blunt (accession [id number]), Low back pain, trauma (accession [id number]), Back trauma, no prior imaging (Age >= 16y) (accession [id number]) chest pain, abdominal pain, mid back pain, low back pain. TECHNIQUE: CT of the chest from the thoracic inlet to the upper abdomen was performed following IV contrast. CT of the abdomen and pelvis was performed using standard technique, scanning from just above the dome of the diaphragm to the symphysis pubis. Images were reconstructed into sagittal and coronal planes. Axial CT images of the thoracic spine and lumbar spine were reconstructed from CT chest, abdomen, and pelvis examination. Sagittal and coronal reconstruction were created. Contrast: IV: 75 ml of Omnipaque 350 : ml of CT Radiation dose: Integrated Dose-length product (DLP) for this visit = 953 mGy*cm. CT Dose Reduction Employed: Automated exposure control(AEC) and iterative recon COMPARISON: None. RESULT: Limitations: None. Chest: Lines, tubes, and devices: None. Vascular: No evidence of thoracic aortic injury. No large central pulmonary emoblism on this non-dedicated examination. Enlarged main pulmonary artery suggestive of chronic pulmonary hypertension. Mediastinum: No evidence of mediastinal hematoma. No evidence of pericardial effusion. No evidence of pneumomediastinum. Lymph Nodes: No significant mediastinal, hilar, or axiallary lymphadenopathy. Lung: No consolidation. Scattered area of the atelectasis and/or scarring.. No pleural effusion. Central airways are patent. Bones/Soft Tissues: Multiple chronic healed the right cerebral fractures. Probable chronic right scapular fracture. No convincing evidence of acute displaced fractures. ABDOMEN/PELVIS: Liver: No evidence of hepatic laceration or perihepatic free fluid. Biliary: No bile duct dilation. Gallbladder is unremarkable. Spleen: No evidence of splenic laceration or perisplenic free fluid. Pancreas: No mass or duct dilation. Adrenals: No mass. Kidneys: No evidence of renal laceration. No renal or ureteral calculu. No evidence of hydronephrosis. GI tract: No dilation or wall thickening. Lymph nodes: No abdominal or pelvic lymphadenopathy. Mesentery/Peritoneum: Increased fat attenuation involving central mesentery was present on 06/03/2021 but appears slightly increased since previous examination. Trace amount of possible fluid. Multiple small lymph nodes at the central mesentery. No large mesenteric hematoma. Vasculature: The celiac axis and SMA are patent. The portal vein and branches, splenic vein, SMV, and hepatic veins are patent. Pelvis: Nodular and enhancing prostate gland. Markedly distended urinary bladder with excreted contrast. Bones/Soft Tissues: No evidence of acute osseous abnormalities. THORACIC SPINE: Sclerotic changes at inferior endplate of T2 and T10 vertebral body may represent age indeterminant minimal endplate fractures. No significant retropulsion into spinal canal. Multilevel degenerative changes of the thoracic spine. LUMBAR SPINE: No evidence of acute osseous finings within lumbar spine. Multilevel degenerative changes of the lumbar spine. IMPRESSION: CHEST: 1. No evidence of acute traumatic injury within chest; 2. Enlarged main pulmonary artery suggestive of chronic pulmonary hypertension. 3. Presumed bibasilar atelectasis. 4. Chronic right-sided fractures and chronic right scapular fracture. Additional findings, as detailed above. ABDOMEN/PELVIS: 1. Increased fat attenuation involving central mesentery was present on 06/03/2021 but appears slightly increased since previous examination. Trace amount of possible fluid. Multiple small lymph nodes at the central mesentery. No large mesenteric hematoma. Although findings are likely unrelated to trauma, correlation with serial abdominal examination is recommended to exclude subtle mesenteric injury. Other differential includes mesenteric panniculitis or lymphoma. Follow-up is suggested. 2. Nodular and enhancing prostate gland. Correlate with PSA levels. 3. Markedly distended urinary bladder with excreted contrast. 4. Additional findings, as detailed above. THORACIC SPINE: 1. Sclerotic changes at inferior endplate of T2 and T10 vertebral body may represent age indeterminant minimal endplate fractures. No significant retropulsion into spinal canal. 2. Known C7 fracture is partially imaged. Please refer to dedicated CT cervical spine and/or CTA neck. LUMBAR SPINE: 2. No acute osseous abnormality within lumbar spine. (more content not included)... Normal [facility] CT CHEST W IVCONon 3 CT CHEST W IVCON * * *Final Report* * * DATE OF EXAM: Jul 06 2022 2:15PM [facility] 0539 - CT CHEST W IVCON / PROCEDURE REASON: Chest trauma, blunt * * * * Physician Interpretation * * * * EXAMINATION: CT CHEST W IVCON, CT ABD/PEL W IVCON, CT LUMBAR SPINE W RECON DATA -NB, CT T-SPINE W RECON DATA -NB CLINICAL HISTORY: Chest trauma, blunt (accession [id number]), Abdominal trauma, blunt (accession [id number]), Low back pain, trauma (accession [id number]), Back trauma, no prior imaging (Age >= 16y) (accession [id number]) chest pain, abdominal pain, mid back pain, low back pain. TECHNIQUE: CT of the chest from the thoracic inlet to the upper abdomen was performed following IV contrast. CT of the abdomen and pelvis was performed using standard technique, scanning from just above the dome of the diaphragm to the symphysis pubis. Images were reconstructed into sagittal and coronal planes. Axial CT images of the thoracic spine and lumbar spine were reconstructed from CT chest, abdomen, and pelvis examination. Sagittal and coronal reconstruction were created. Contrast: IV: 75 ml of Omnipaque 350 : ml of CT Radiation dose: Integrated Dose-length product (DLP) for this visit = 953 mGy*cm. CT Dose Reduction Employed: Automated exposure control(AEC) and iterative recon COMPARISON: None. RESULT: Limitations: None. Chest: Lines, tubes, and devices: None. Vascular: No evidence of thoracic aortic injury. No large central pulmonary emoblism on this non-dedicated examination. Enlarged main pulmonary artery suggestive of chronic pulmonary hypertension. Mediastinum: No evidence of mediastinal hematoma. No evidence of pericardial effusion. No evidence of pneumomediastinum. Lymph Nodes: No significant mediastinal, hilar, or axiallary lymphadenopathy. Lung: No consolidation. Scattered area of the atelectasis and/or scarring.. No pleural effusion. Central airways are patent. Bones/Soft Tissues: Multiple chronic healed the right cerebral fractures. Probable chronic right scapular fracture. No convincing evidence of acute displaced fractures. ABDOMEN/PELVIS: Liver: No evidence of hepatic laceration or perihepatic free fluid. Biliary: No bile duct dilation. Gallbladder is unremarkable. Spleen: No evidence of splenic laceration or perisplenic free fluid. Pancreas: No mass or duct dilation. Adrenals: No mass. Kidneys: No evidence of renal laceration. No renal or ureteral calculu. No evidence of hydronephrosis. GI tract: No dilation or wall thickening. Lymph nodes: No abdominal or pelvic lymphadenopathy. Mesentery/Peritoneum: Increased fat attenuation involving central mesentery was present on 06/03/2021 but appears slightly increased since previous examination. Trace amount of possible fluid. Multiple small lymph nodes at the central mesentery. No large mesenteric hematoma. Vasculature: The celiac axis and SMA are patent. The portal vein and branches, splenic vein, SMV, and hepatic veins are patent. Pelvis: Nodular and enhancing prostate gland. Markedly distended urinary bladder with excreted contrast. Bones/Soft Tissues: No evidence of acute osseous abnormalities. THORACIC SPINE: Sclerotic changes at inferior endplate of T2 and T10 vertebral body may represent age indeterminant minimal endplate fractures. No significant retropulsion into spinal canal. Multilevel degenerative changes of the thoracic spine. LUMBAR SPINE: No evidence of acute osseous finings within lumbar spine. Multilevel degenerative changes of the lumbar spine. IMPRESSION: CHEST: 1. No evidence of acute traumatic injury within chest; 2. Enlarged main pulmonary artery suggestive of chronic pulmonary hypertension. 3. Presumed bibasilar atelectasis. 4. Chronic right-sided fractures and chronic right scapular fracture. Additional findings, as detailed above. ABDOMEN/PELVIS: 1. Increased fat attenuation involving central mesentery was present on 06/03/2021 but appears slightly increased since previous examination. Trace amount of possible fluid. Multiple small lymph nodes at the central mesentery. No large mesenteric hematoma. Although findings are likely unrelated to trauma, correlation with serial abdominal examination is recommended to exclude subtle mesenteric injury. Other differential includes mesenteric panniculitis or lymphoma. Follow-up is suggested. 2. Nodular and enhancing prostate gland. Correlate with PSA levels. 3. Markedly distended urinary bladder with excreted contrast. 4. Additional findings, as detailed above. THORACIC SPINE: 1. Sclerotic changes at inferior endplate of T2 and T10 vertebral body may represent age indeterminant minimal endplate fractures. No significant retropulsion into spinal canal. 2. Known C7 fracture is partially imaged. Please refer to dedicated CT cervical spine and/or CTA neck. LUMBAR SPINE: 2. No acute osseous abnormality within lumbar spine. Multil (more content not included)... Normal [facility] CT LUMBAR SPINE W RECON DATA -NBon 07-06-2022 CT LUMBAR SPINE W RECON DATA -NB * * *Final Report* * * DATE OF EXAM: Jul 06 2022 2:15PM [facility] 0481 - CT LUMBAR SPINE W RECON DATA -NB / PROCEDURE REASON: Low back pain, trauma * * * * Physician Interpretation * * * * EXAMINATION: CT CHEST W IVCON, CT ABD/PEL W IVCON, CT LUMBAR SPINE W RECON DATA -NB, CT T-SPINE W RECON DATA -NB CLINICAL HISTORY: Chest trauma, blunt (accession [id number]), Abdominal trauma, blunt (accession [id number]), Low back pain, trauma (accession [id number]), Back trauma, no prior imaging (Age >= 16y) (accession [id number]) chest pain, abdominal pain, mid back pain, low back pain. TECHNIQUE: CT of the chest from the thoracic inlet to the upper abdomen was performed following IV contrast. CT of the abdomen and pelvis was performed using standard technique, scanning from just above the dome of the diaphragm to the symphysis pubis. Images were reconstructed into sagittal and coronal planes. Axial CT images of the thoracic spine and lumbar spine were reconstructed from CT chest, abdomen, and pelvis examination. Sagittal and coronal reconstruction were created. Contrast: IV: 75 ml of Omnipaque 350 : ml of CT Radiation dose: Integrated Dose-length product (DLP) for this visit = 953 mGy*cm. CT Dose Reduction Employed: Automated exposure control(AEC) and iterative recon COMPARISON: None. RESULT: Limitations: None. Chest: Lines, tubes, and devices: None. Vascular: No evidence of thoracic aortic injury. No large central pulmonary emoblism on this non-dedicated examination. Enlarged main pulmonary artery suggestive of chronic pulmonary hypertension. Mediastinum: No evidence of mediastinal hematoma. No evidence of pericardial effusion. No evidence of pneumomediastinum. Lymph Nodes: No significant mediastinal, hilar, or axiallary lymphadenopathy. Lung: No consolidation. Scattered area of the atelectasis and/or scarring.. No pleural effusion. Central airways are patent. Bones/Soft Tissues: Multiple chronic healed the right cerebral fractures. Probable chronic right scapular fracture. No convincing evidence of acute displaced fractures. ABDOMEN/PELVIS: Liver: No evidence of hepatic laceration or perihepatic free fluid. Biliary: No bile duct dilation. Gallbladder is unremarkable. Spleen: No evidence of splenic laceration or perisplenic free fluid. Pancreas: No mass or duct dilation. Adrenals: No mass. Kidneys: No evidence of renal laceration. No renal or ureteral calculu. No evidence of hydronephrosis. GI tract: No dilation or wall thickening. Lymph nodes: No abdominal or pelvic lymphadenopathy. Mesentery/Peritoneum: Increased fat attenuation involving central mesentery was present on 06/03/2021 but appears slightly increased since previous examination. Trace amount of possible fluid. Multiple small lymph nodes at the central mesentery. No large mesenteric hematoma. Vasculature: The celiac axis and SMA are patent. The portal vein and branches, splenic vein, SMV, and hepatic veins are patent. Pelvis: Nodular and enhancing prostate gland. Markedly distended urinary bladder with excreted contrast. Bones/Soft Tissues: No evidence of acute osseous abnormalities. THORACIC SPINE: Sclerotic changes at inferior endplate of T2 and T10 vertebral body may represent age indeterminant minimal endplate fractures. No significant retropulsion into spinal canal. Multilevel degenerative changes of the thoracic spine. LUMBAR SPINE: No evidence of acute osseous finings within lumbar spine. Multilevel degenerative changes of the lumbar spine. IMPRESSION: CHEST: 1. No evidence of acute traumatic injury within chest; 2. Enlarged main pulmonary artery suggestive of chronic pulmonary hypertension. 3. Presumed bibasilar atelectasis. 4. Chronic right-sided fractures and chronic right scapular fracture. Additional findings, as detailed above. ABDOMEN/PELVIS: 1. Increased fat attenuation involving central mesentery was present on 06/03/2021 but appears slightly increased since previous examination. Trace amount of possible fluid. Multiple small lymph nodes at the central mesentery. No large mesenteric hematoma. Although findings are likely unrelated to trauma, correlation with serial abdominal examination is recommended to exclude subtle mesenteric injury. Other differential includes mesenteric panniculitis or lymphoma. Follow-up is suggested. 2. Nodular and enhancing prostate gland. Correlate with PSA levels. 3. Markedly distended urinary bladder with excreted contrast. 4. Additional findings, as detailed above. THORACIC SPINE: 1. Sclerotic changes at inferior endplate of T2 and T10 vertebral body may represent age indeterminant minimal endplate fractures. No significant retropulsion into spinal canal. 2. Known C7 fracture is partially imaged. Please refer to dedicated CT cervical spine and/or CTA neck. LUMBAR SPINE: 2. No acute osseous abnormality within bree (more content not included)... Normal [facility] CT T-SPINE W RECON DATA -NBo n 07-06-2022 CT T-SPINE W RECON DATA -NB * * *Final Report* * * DATE OF EXAM: Jul 06 2022 2:15PM [facility] 0485 - CT T-SPINE W RECON DATA -NB / PROCEDURE REASON: Back trauma, no prior imaging (Age >= 16y) * * * * Physician Interpretation * * * * EXAMINATION: CT CHEST W IVCON, CT ABD/PEL W IVCON, CT LUMBAR SPINE W RECON DATA -NB, CT T-SPINE W RECON DATA -NB CLINICAL HISTORY: Chest trauma, blunt (accession [id number]), Abdominal trauma, blunt (accession [id number]), Low back pain, trauma (accession [id number]), Back trauma, no prior imaging (Age >= 16y) (accession [id number]) chest pain, abdominal pain, mid back pain, low back pain. TECHNIQUE: CT of the chest from the thoracic inlet to the upper abdomen was performed following IV contrast. CT of the abdomen and pelvis was performed using standard technique, scanning from just above the dome of the diaphragm to the symphysis pubis. Images were reconstructed into sagittal and coronal planes. Axial CT images of the thoracic spine and lumbar spine were reconstructed from CT chest, abdomen, and pelvis examination. Sagittal and coronal reconstruction were created. Contrast: IV: 75 ml of Omnipaque 350 : ml of CT Radiation dose: Integrated Dose-length product (DLP) for this visit = 953 mGy*cm. CT Dose Reduction Employed: Automated exposure control(AEC) and iterative recon COMPARISON: None. RESULT: Limitations: None. Chest: Lines, tubes, and devices: None. Vascular: No evidence of thoracic aortic injury. No large central pulmonary emoblism on this non-dedicated examination. Enlarged main pulmonary artery suggestive of chronic pulmonary hypertension. Mediastinum: No evidence of mediastinal hematoma. No evidence of pericardial effusion. No evidence of pneumomediastinum. Lymph Nodes: No significant mediastinal, hilar, or axiallary lymphadenopathy. Lung: No consolidation. Scattered area of the atelectasis and/or scarring.. No pleural effusion. Central airways are patent. Bones/Soft Tissues: Multiple chronic healed the right cerebral fractures. Probable chronic right scapular fracture. No convincing evidence of acute displaced fractures. ABDOMEN/PELVIS: Liver: No evidence of hepatic laceration or perihepatic free fluid. Biliary: No bile duct dilation. Gallbladder is unremarkable. Spleen: No evidence of splenic laceration or perisplenic free fluid. Pancreas: No mass or duct dilation. Adrenals: No mass. Kidneys: No evidence of renal laceration. No renal or ureteral calculu. No evidence of hydronephrosis. GI tract: No dilation or wall thickening. Lymph nodes: No abdominal or pelvic lymphadenopathy. Mesentery/Peritoneum: Increased fat attenuation involving central mesentery was present on 06/03/2021 but appears slightly increased since previous examination. Trace amount of possible fluid. Multiple small lymph nodes at the central mesentery. No large mesenteric hematoma. Vasculature: The celiac axis and SMA are patent. The portal vein and branches, splenic vein, SMV, and hepatic veins are patent. Pelvis: Nodular and enhancing prostate gland. Markedly distended urinary bladder with excreted contrast. Bones/Soft Tissues: No evidence of acute osseous abnormalities. THORACIC SPINE: Sclerotic changes at inferior endplate of T2 and T10 vertebral body may represent age indeterminant minimal endplate fractures. No significant retropulsion into spinal canal. Multilevel degenerative changes of the thoracic spine. LUMBAR SPINE: No evidence of acute osseous finings within lumbar spine. Multilevel degenerative changes of the lumbar spine. IMPRESSION: CHEST: 1. No evidence of acute traumatic injury within chest; 2. Enlarged main pulmonary artery suggestive of chronic pulmonary hypertension. 3. Presumed bibasilar atelectasis. 4. Chronic right-sided fractures and chronic right scapular fracture. Additional findings, as detailed above. ABDOMEN/PELVIS: 1. Increased fat attenuation involving central mesentery was present on 06/03/2021 but appears slightly increased since previous examination. Trace amount of possible fluid. Multiple small lymph nodes at the central mesentery. No large mesenteric hematoma. Although findings are likely unrelated to trauma, correlation with serial abdominal examination is recommended to exclude subtle mesenteric injury. Other differential includes mesenteric panniculitis or lymphoma. Follow-up is suggested. 2. Nodular and enhancing prostate gland. Correlate with PSA levels. 3. Markedly distended urinary bladder with excreted contrast. 4. Additional findings, as detailed above. THORACIC SPINE: 1. Sclerotic changes at inferior endplate of T2 and T10 vertebral body may represent age indeterminant minimal endplate fractures. No significant retropulsion into spinal canal. 2. Known C7 fracture is partially imaged. Please refer to dedicated CT cervical spine and/or CTA neck. LUMBAR SPINE: 2. No acute osseous abnor (more content not included)... Normal [facility] CTA HEAD W IVCONon 3 CTA HEAD W IVCON * * *Final Report* * * DATE OF EXAM: Jul 06 2022 2:05PM [facility] 0022 - CTA HEAD W IVCON / PROCEDURE REASON: Head trauma, moderate-severe * * * * Physician Interpretation * * * * EXAMINATION: CTA HEAD W IVCON, CTA NECK W IVCON HISTORY: Trauma, evaluate for injury TECHNIQUE: Spiral high resolution axial images were obtained through the head, neck and superior mediastinum following bolus administration of intravenous contrast for CT angiography. 3D maximum intensity projection images were created, reviewed and archived . MQ: CTAHN_4 Contrast: 75 mL Visipaque [address] Radiation dose: Integrated Dose-Length Product (DLP) for this visit = 512 mGy*cm. CT Dose Reduction Employed: Automated exposure control(AEC) and iterative recon COMPARISON: Outside CT brain cervical spine same day. RESULT: BRAIN: Evaluation of the individual slices of the CTA demonstrates no evidence of an acute stroke. ASPECT Score = 10 Hemorrhage: No evidence of acute intracranial hemorrhage. ECASS hemorrhagic transformation score: Not Applicable Left frontoparietal subgaleal scalp swelling. Spot Sign Presence: Not Applicable Spot Sign Number: Not Applicable NECK: Soft tissues: The soft tissue planes are maintained throughout. No evidence of a soft tissue mass in the neck or superior mediastinum. No significant lymphadenopathy is seen. Spine: Please refer to same day CT cervical spine report. Lung apices: Please refer to separate CT chest report. CT ARTERIOGRAM: Extracranial Circulation: Aortic Arch: There is a normal branching pattern from the aortic arch. There is no significant stenosis in the proximal brachiocephalic vessels. No dissection or pseudoaneurysm in the neck vessels. Carotid Stenosis: Right Common: No significant stenosis. Right Internal Carotid Plaque: Mild plaque formation. Right Internal Carotid Stenosis (% by NASCET Criteria): 10% Left Common: No significant stenosis. Left Internal Carotid Plaque: Mild plaque formation. Left Internal Carotid Stenosis (% by NASCET Criteria): 10% Cervical Vertebral Arteries: Patency: Bilateral Dominance: Left Intracranial Circulation: Anterior Circulation: There is atherosclerosis of the intracranial ICAs. Mild stenosis in bilateral carotid siphons. The ACAs and MCAs are patent. No significant stenosis. No aneurysm. There is fenestration of the left M1 segment. Vertebrobasilar Circulation: The intradural vertebral arteries are patent. Mild stenosis in the left proximal knee 4 segment. The left medial segment is dominant. The normal basilar artery is supplied by left V4 segment. manager of finance are patent. SCAs are patent. No significant stenosis. No aneurysm. The major dural sinuses and draining veins are patent. Explosive Expert (topogram) images: No additional findings. IMPRESSION: No significant stenosis or major vessel occlusion. No dissection or aneurysm. Arterial blood flow was measured to detect acute large vessel occlusion by computer aided detection software: Not Performed. Concordance between software and imaging review: Not Applicable. Splicing Machine Operator: PSCHayde Transcribe Date/Time: Jul 06 2022 2:20P Dictated by : NEYMAR MARTIN MD This examination was interpreted and the report reviewed and electronically signed by: NEYMAR MARTIN MD on Jul 06 2022 2:38PM EST [id number] Normal [facility] CTA NECK W IVCONon 3 CTA NECK W IVCON * * *Final Report* * * DATE OF EXAM: Jul 06 2022 2:05PM [facility] 0024 - CTA NECK W IVCON / PROCEDURE REASON: Head trauma, moderate-severe * * * * Physician Interpretation * * * * EXAMINATION: CTA HEAD W IVCON, CTA NECK W IVCON HISTORY: Trauma, evaluate for injury TECHNIQUE: Spiral high resolution axial images were obtained through the head, neck and superior mediastinum following bolus administration of intravenous contrast for CT angiography. 3D maximum intensity projection images were created, reviewed and archived . MQ: CTAHN_4 Contrast: 75 mL Visipaque [address] Radiation dose: Integrated Dose-Length Product (DLP) for this visit = 512 mGy*cm. CT Dose Reduction Employed: Automated exposure control(AEC) and iterative recon COMPARISON: Outside CT brain cervical spine same day. RESULT: BRAIN: Evaluation of the individual slices of the CTA demonstrates no evidence of an acute stroke. ASPECT Score = 10 Hemorrhage: No evidence of acute intracranial hemorrhage. ECASS hemorrhagic transformation score: Not Applicable Left frontoparietal subgaleal scalp swelling. Spot Sign Presence: Not Applicable Spot Sign Number: Not Applicable NECK: Soft tissues: The soft tissue planes are maintained throughout. No evidence of a soft tissue mass in the neck or superior mediastinum. No significant lymphadenopathy is seen. Spine: Please refer to same day CT cervical spine report. Lung apices: Please refer to separate CT chest report. CT ARTERIOGRAM: Extracranial Circulation: Aortic Arch: There is a normal branching pattern from the aortic arch. There is no significant stenosis in the proximal brachiocephalic vessels. No dissection or pseudoaneurysm in the neck vessels. Carotid Stenosis: Right Common: No significant stenosis. Right Internal Carotid Plaque: Mild plaque formation. Right Internal Carotid Stenosis (% by NASCET Criteria): 10% Left Common: No significant stenosis. Left Internal Carotid Plaque: Mild plaque formation. Left Internal Carotid Stenosis (% by NASCET Criteria): 10% Cervical Vertebral Arteries: Patency: Bilateral Dominance: Left Intracranial Circulation: Anterior Circulation: There is atherosclerosis of the intracranial ICAs. Mild stenosis in bilateral carotid siphons. The ACAs and MCAs are patent. No significant stenosis. No aneurysm. There is fenestration of the left M1 segment. Vertebrobasilar Circulation: The intradural vertebral arteries are patent. Mild stenosis in the left proximal knee 4 segment. The left medial segment is dominant. The normal basilar artery is supplied by left V4 segment. manager of finance are patent. SCAs are patent. No significant stenosis. No aneurysm. The major dural sinuses and draining veins are patent. Explosive Expert (topogram) images: No additional findings. IMPRESSION: No significant stenosis or major vessel occlusion. No dissection or aneurysm. Arterial blood flow was measured to detect acute large vessel occlusion by computer aided detection software: Not Performed. Concordance between software and imaging review: Not Applicable. Splicing Machine Operator: PSCHayde Transcribe Date/Time: Jul 06 2022 2:20P Dictated by : NEYMAR MARTIN MD This examination was interpreted and the report reviewed and electronically signed by: NEYMAR MARTIN MD on Jul 06 2022 2:38PM EST [id number] Normal [facility] Chest 1 View (Portable)on Chest 1 View (Portable) [facility] [address] [place] [address] Chest 1 View (Portable) MR#: [id number] Acct: [id number] Name: YARITZA HENDERSON Rep #: [id number] : 1955 M 66 From: Ubaldo mckeon MD PCP: Dr. Fredrick Feliciano MD Status: DEP ER Study: Chest 1 View (Portable) Date of Exam: 07/06/22 Exam# [id number] Ordering Dr: Bravo Wesley DO STUDY: X-RAY CHEST REASON FOR EXAM: Male, 66 years old. Chest pain due to a fall. TECHNIQUE: Single AP portable view of the chest. COMPARISON: None. FINDINGS: Hyperinflation. Calcified granulomas. There is no demonstrated pleural abnormality. Normal size heart. Calcified bilateral hilar lymph nodes worse on the right side. There is prominence of the pulmonary hilar arteries without peripheral pulmonary vascular congestion, suggesting pulmonary hypertension. There is atherosclerotic tortuosity of the aortic arch and descending thoracic aorta. There are diffuse degenerative changes of the visualized thoracic spine. Healed right rib fractures. There is no demonstrated abnormality of the visualized soft tissue structures of the upper abdomen. RAD/Chest 1 View (Portable) IMPRESSION: Hyperinflation. No acute abnormality is seen. Electronically Signed: Ubaldo Ga MD at 9:16 EST Reading Location ID and State: [address] [place] [address] , Service support , CC: Dr. Fredrick Feliciano MD; Bravo Wesley DO Splicing Machine Operator: Signed Normal [facility] Comprehensive metabolic 2000 panelon 07-06-2022 Albumin [Mass/Vol] 4.0 g/dL Normal 3.9-4.9 [facility] Comment on above: Order Comment: Speci men Type: BLOOD SPECIMENOrdering Facility: [facility] Address: [address] [address] Performed By: #### 2 4323-8, 3040-3, 2156-10 ####[facility] LABORATORYCLIA [id number] [place] [address] [place] ALP [Catalytic activity/Vol] 127 U/L High 38-113 [facility] Comment on above: Order Comment: Speci men Type: BLOOD SPECIMENOrdering Facility: [facility] Address: [address] [address] Performed By: #### 2 4323-8, 3040-3, 2156-10 ####[facility] LABORATORYCLIA [id number] [place] [address] [place] ALT With P-5'-P [Catalytic activity/Vol] 15 U/L Normal 10-54 [facility] Comment on above: Order Comment: Speci men Type: BLOOD SPECIMENOrdering Facility: [facility] Address: [address] [address] Performed By: #### 2 4323-8, 3040-3, 2156-10 ####[facility] LABORATORYCLIA [id number] [address] STATES [facility] Anion gap [Moles/Vol] 11 mmol/L Normal 9-18 [facility] Comment on above: Order Comment: Speci men Type: BLOOD SPECIMENOrdering Facility: [facility] Address: [address] [address] Performed By: #### 2 4323-8, 3040-3, 2156-10 ####[facility] LABORATORYCLIA [id number] [place] [address] [place] AST With P-5'-P [Catalytic activity/Vol] 32 U/L Normal 14-40 [facility] Comment on above: Order Comment: Speci men Type: BLOOD SPECIMENOrdering Facility: [facility] Address: [address] [place] [address] Performed By: #### 2 4323-8, 3, 2156-10 ####[facility] LABORATORYCLIA [id number] [place] [address] [place] Bilirubin [Mass/Vol] 1.3 mg/dL Normal 0.2-1.3 [facility] Comment on above: Order Comment: Speci men Type: BLOOD SPECIMENOrdering Facility: [facility] Address: [address] [place] [address] Performed By: #### 2 43238, 3, 2156-10 ####[facility]ATORYCLIA [id number] [place] [address] [place] Calcium [Mass/Vol] 9.0 mg/dL Normal 8.5-10.2 [facility] Comment on above: Order Comment: Speci men Type: BLOOD SPECIMENOrdering Facility: [facility] Address: [address] [place] [address] Performed By: #### 2 4323-8, 3, 2156-10 ####[facility] LABORATORYCLIA [id number] [place] [address] [place] Chloride [Moles/Vol] 85 mmol/L Low 97-105 [facility] Comment on above: Order Comment: Speci men Type: BLOOD SPECIMENOrdering Facility: [facility] Address: [address] [place] [address] Performed By: #### 2 4323-8, 3039-3, 2156-10 ####[facility]ORATORYCLIA [id number] [place] [address] [place] CO2 [Moles/Vol] 23 mmol/L Normal 22-30 [facility] Comment on above: Order Comment: Speci men Type: BLOOD SPECIMENOrdering Facility: [facility] Address: [address] [address] Performed By: #### 2 4323-8, 3040-3, 2156-10 ####[facility] LABORATORYCLIA [id number] [address] [id number] [place] Creatinine [Mass/Vol] 0.98 mg/dL Normal 0.73-1.22 [facility] Comment on above: Order Comment: Speci men Type: BLOOD SPECIMENOrdering Facility: [facility] Address: [address] [place] [address] Performed By: #### 2 4323-8, 0-3, 2156-10 ####[facility] CARMELCLIA [id number] [address] ESTIMATED GLOMERULAR FILTRATION RATE 84 mL/min/1.73m??? Normal >=60 [facility] Comment on above: Order Comment: Speci men Type: BLOOD SPECIMENOrdering Facility: [facility] Address: [address] [place] [address] Result Comment: Stormy mated Glomerular Filtration Rate (eGFR) is calculated using the 2020 CKD-EPI creatinine equation. This equation utilizes serum creatinine, sex, and age as parameters. The creatinine assay has traceable calibration to isotope dilution-mass spectrometry. Refer to KDIGO guidelines for clinical interpretation. In patients with unstable renal function, e.g. those with acute kidney injury, the eGFR may not accurately reflect actual GFR. Performed By: #### 2 4323-8, 3040-3, 2156-10 ####[facility] LABORATORYCLIA [id number] [address] [id number] [place] Glucose [Mass/Vol] 111 mg/dL High 74-99 [facility] Comment on above: Order Comment: Speci men Type: BLOOD SPECIMENOrdering Facility: [facility] Address: [address] [place] [address] Result Comment: The [place] [employer] Association (ADA) provides guidance for cutoff values for fasting glucose and random glucose. The ADA defines fasting as no caloric intake for at least 8 hours. Fasting plasma glucose results between 100 to 125 mg/dL indicate increased risk for diabetes (prediabetes). Fasting plasma glucose results greater than or equal to 126 mg/dL meet the criteria for diagnosis of diabetes. In the absence of unequivocal hyperglycemia, results should be confirmed by repeat testing. In a patient with classic symptoms of hyperglycemia or hyperglycemic crisis, random plasma glucose results greater than or equal to 200 mg/dL meet the criteria for diagnosis of diabetes. Reference: Standards of Medical Care in Diabetes 2016, [place] [employer]. Diabetes Care. 2016.39(Suppl 1). Performed By: #### 2 4323-8, 0-3, 2156-10 ####[facility] LABORATORYCLIA [id number] [place] [address] [place] Potassium [Moles/Vol] 3.5 mmol/L Low 3.7-5.1 [facility] Comment on above: Order Comment: [facility] Type: BLOOD SPECIMENOrdering Facility: [facility] Address: [address] [place] [address] Performed By: #### 2 4323-8, 3, 2156-10 ####[facility] CENTERIA [id number] [place] [address] [place] Protein [Mass/Vol] 7.2 g/dL Normal 6.3-8.0 [facility] Comment on above: Order Comment: Charlene [facility] Type: BLOOD SPECIMENOrdering Facility: [facility] Address: [address] [address] Performed By: #### 2 4323-8, 03, 2156-10 ####[facility] LABORATORYCLIA [id number] [place] [address] [facility] Sodium [Moles/Vol] 119 mmol/L Low 136-144 [facility] Comment on above: Order Comment: Charlene men Type: BLOOD SPECIMENOrdering Facility: [facility] Address: [address] [address] Performed By: #### 2 4323-8, 3040-3, 2156-10 ####[facility] LABORATORYCLIA [id number] [place] [address] [facility] Urea nitrogen [Mass/Vol] 8 mg/dL Low 9-24 [facility] Comment on above: Order Comment: Speci men Type: BLOOD SPECIMENOrdering Facility: [facility] Address: [address] [place] [address] Performed By: #### 2 4323-8, 3039-3, 2156-10 ####[facility] LABORATORYCLIA [id number] [place] [address] [facility] ED NOTEon 07-06-2022 ED NOTE HNO ID: [id number] Author: Caro Hinojosa RN Service: Emergency Medicine Author Type: Registered Nurse Type: ED Notes Filed: 07/06/2022 8:41 PM Note Text: Clear liquid diet of jello and gingerale given Normal [facility] ED NOTE HNO ID: [id number] Author: Caro Hinojosa RN Service: Emergency Medicine Author Type: Registered Nurse Type: ED Notes Filed: 07/06/2022 7:02 PM Note Text: Pt returned from MRI Normal [facility] ED NOTE HNO ID: [id number] Author: Shawna Vasquez RN Service: Nursing Author Type: Registered Nurse Type: ED Notes Filed: 07/06/2022 5:27 PM Note Text: MRI questionaire filled out and faxed Normal [facility] ED NOTE HNO ID: [id number] Author: Caro Hinojosa RN Service: Emergency Medicine Author Type: Registered Nurse Type: ED Notes Filed: 07/06/2022 2:11 PM Note Text: Pt to CT Normal [facility] ED NOTE HNO ID: [id number] Author: Caro Hinojosa RN Service: Emergency Medicine Author Type: Registered Nurse Type: ED Notes Filed: 07/06/2022 1:58 PM Note Text: CT notified via vocera that pt is ready for test Normal [facility] ED NOTE HNO ID: [id number] Author: Scarlett Castaneda RN Service: Emergency Medicine Author Type: Registered Nurse Type: ED Notes Filed: 07/06/2022 10:40 AM Note Text: Trauma consult at bedside [facility] ED NOTE HNO ID: [id number] Author: Scarlett Castaneda RN Service: Emergency Medicine Author Type: Registered Nurse Type: ED Notes Filed: 07/06/2022 9:38 AM Note Text: Patient's identity verified by patient stating name, Patient's identity verified by patient stating date, Patient's identity verified by hospital ID bracelet. 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 Alarms set and on, patient tolerating monitoring. [facility] ED NOTE HNO ID: [id number] Author: Ana María Bains RN Service: ? Author Type: Registered Nurse Type: ED Notes Filed: 07/06/2022 9:33 AM Note Text: Bed: 46-ED Expected date: Expected time: Means of arrival: Comments: physicians [facility] ED PROV NOTEon 07-06-2022 ED PROV NOTE HNO ID: [id number] Author: Erick Carrington DO Service: Emergency Medicine Author Type: Physician Type: ED Provider Notes Filed: 07/08/2022 11:16 AM Note Text: Attending Note I evaluated the patient and personally participated in the galeas components. I agree with the resident's findings and plan as documented and have discussed the case and management of the patient's care with the resident. This is a 66-year-old male who is a transfer from [facility] for trauma consultation. On Wednesday evening, he fell down 13 wooden steps. He laid there until Wednesday. He went to the hospital today and was found to have cervical spine fractures. He also has mid back pain. He normally drinks 10-12 beers a day and his last drink was just before 9 PM on Wednesday. He denies any tremors. No headache or dizziness. No chest pain, shortness of breath or abdominal pain. No bowel or bladder incontinence. No difficulty moving his arms or legs. No blood thinners. No other complaints. He is awake alert oriented x3. He is laying supine with a cervical collar in place. Head atraumatic normocephalic. Pupils equal reactive light. Extraocular movements intact. Pharynx clear and patent. No stridor. Lungs clear bilaterally. Heart regular rate and rhythm no murmurs. No tenderness or subcutaneous air of the chest wall. Abdomen soft nontender nondistended. No palpable masses. He moves all 4 limbs. Distal pulses intact and equal. No cyanosis of the skin. Cranial nerves II through XII grossly intact. GCS 15. The patient's imaging results were reviewed. He is being kept in a supine position. Trauma has already seen him and has ordered additional work-up. He is also on CIWA protocol. His sodium is 119 and seems to be chronically low. Disposition per trauma. ERICK CARRINGTON 07/08/22 1116 Normal [facility] ED PROV NOTE HNO ID: [id number] Author: Erick Carrington DO Service: Emergency Medicine Author Type: Physician Type: ED Provider Notes Filed: 07/08/2022 11:10 AM Note Text: ED Provider Note Patient Name: Yaritza Henderson : 1955 SERVICE DATE: 07/06/22 History Patient presents with: Trauma Evaulation: Pt transfer from [facility] ED - pt with mech fall on Wednesday night and was on ground from Wednesday to Wednesday, pt unsure of LOC, pt denies any blood thinner use. Pt with pain between my shoulder blades, pt denies any numbness/tingling, pt with C6-C7 fracture. Pt A/OX3 at this time. Yaritza Henderson is a 66 year old male who presents as a trauma transfer from [facility]. Please see their ED note for initial presentation and management. Patient has known C-spine fractures and C7 C6 and C4.. Patient has a significant past medical history of hypertension, alcohol abuse, fatty liver. Patient reports symptoms started Wednesday night. Patient explains that he was walking up his stairs when he lost his balance and fell backwards. He reports falling down approximately 13 stairs. He reports falling back and hitting his neck and head. Patient's neighbor helped him out however he was too weak to move and slept on the floor overnight. Patient was able to get up in the morning but continued to have pain in his neck and upper back. For this reason he sought medical attention. Patient received pain medication at outside hospital and reports his pain is under control at this time. He denies any numbness or tingling in his hands or feet. He denies any loss of strength. He also tells me that his last drink of alcohol was Wednesday night but that does not feel any withdrawal symptoms at this time. PAST MEDICAL HISTORY Diagnosis Date Advance directive discussed with patient 11/19/2021 Discussed 10/2021 Alcohol abuse 04/25/2018 Alcohol abuse 04/25/2018 12 pck per day since around 2014 (maybe longer) Benign prostatic hyperplasia without lower urinary tract symptoms 08/01/2019 Elevated alkaline phosphatase level 06/16/2021 Alcoholic liver disease Elevated LFTs 04/25/2018 Ex-smoker 04/25/2018 Started at 7 yo, 1/2-1 PPD and quit at age 19 Ex-smoker 04/25/2018 Started at 7 yo, 1/2-1 PPD and quit at age 19 Fatty liver, alcoholic 05/08/2018 History of right shoulder fracture Hypertension, essential 02/07/2018 Medicare annual wellness visit, subsequent 08/01/2019 :Medicare Part B: 09/28/2018 Last done: 08/01/2019 Tibia/fibula fracture PAST SURGICAL HISTORY Procedure Laterality Date 2D ECHO (EXEP) 06/21/2020 EF=60%, mild menchaca dysf, 1+ [place] COLONOSCOPY 01/09/2019 Dr. Gonzalez, repeat 10 yrs REMV CATARACT EXTRACAP,INSERT LENS Bilateral Summer/fall of 2021 FAMILY HISTORY Problem Relation Age of Onset No Known Problems Mother when patient was 8 from accident No Known Problems Father No Known Problems Sister unsure of hx No Known Problems Brother doens't know hx No Known Problems Maternal Grandmother doesn't know hx No Known Problems Maternal Grandfather doesn't know hx No Known Problems Paternal Grandmother doesn't know hx No Known Problems Paternal Grandfather doesn't know hx Alzheimer's Disease No Family History Colon Cancer No Family History Prostate Cancer No Family History Coronary Artery Disease No Family History Diabetes No Family History Hypertension No Family History Hyperlipidemia No Family History Kidney Disease No Family History Seizures No Family History Stroke No Family History Thyroid No Family History Social History Tobacco Use Smoking status: Former Smokeless tobacco: Never Tobacco comments: quit when he was 19 Vaping Use Vaping Use: Never used Substance and Sexual Activity Alcohol use: Yes Alcohol/week: 105.0 standard drinks Types: 42 Cans of Beer (12oz) per week Comment: 6-12 pack a day Drug use: No Sexual activity: Not on file ALLERGIES No Known Allergies Review of Systems Constitutional: Negative for chills and fever. HENT: Negative for rhinorrhea, sneezing and sore throat. Eyes: Negative for discharge and redness. Respiratory: Negative for cough and wheezing. Cardiovascular: Negative for chest pain and leg swelling. Gastrointestinal: Negative for abdominal pain, nausea and vomiting. Genitourinary: Negative for dysuria and frequency. Musculoskeletal: Positive for back pain and neck pain. Negative for arthralgias and myalgias. Skin: Negative for pallor and rash. Neurological: Negative for light-headedness and headaches. Psychiatric/Behavioral: Negative for agitation and confusion. Physical Exam Vitals [07/06/22 0936] BP Pulse Temp Temp src Resp SpO2 Weight Height 151/64 81 36.9 ?C (98.4 ?F) -- 13 97 % 83.5 kg (184 lb) 1.778 m (5' 10) Physical Exam Constitutional: General: He is not in acute distress. HENT: Head: Normocephalic and atraumatic. Nose: Nose normal. No rhino (more content not included)... Normal [facility] Emergency Department Summary on 07-06-2022 Emergency Department Summary [facility] Medical Records Department [address] [place] [address] Emergency Department Summary 07/06/22 MR#: [id number] Acct: [id number] Name: YARITZA HENDERSON Rep #: [id number] : 1955 66 From: Bravo Wesley DO PCP: Dr. Fredrick Feliciano MD Status:REG ER Location: ED HPI History of Present Illness Chief Complaint: Back Narrative Narrative: Patient is a 66-year-old male with past medical history of hypertension as well as daily alcohol use and recently diagnosed hyponatremia in May of this year with baseline sodium value of approximate 120. Patient states that on Wednesday he was at home and walking up his stairs when he felt weak and lost his balance and fell. He states he fell approximately 13 steps and that these were wooden steps. He states he hit his head but did not have loss of consciousness and he denies any history of bleeding disorder or blood thinner use. He states secondary to the pain he could not get up and move so he laid on the landing of his staircase until family came over Wednesday after druze. At that time they are able to help him up and he was able to ambulate. He states that he has been having pain in his head neck and upper back since the trauma but is not improving with time or [id number] medication and therefore comes in for evaluation. [facility] Medical History Alcohol abuse Elevated LFTs Essential (primary) hypertension halfway use of drug Home Medications lisinopril 40 mg tablet 40 mg PO DAILY 30 days #30 tabs 10/18/18 [History Last Taken 01/09/19 09:00 40 MG] triamterene 75 mg-hydrochlorothiazide 50 mg tablet 1 tab PO DAILY 30 days #30 tabs 10/18/18 [History Last Taken Unknown] amlodipine 10 mg tablet 10 mg PO DAILY 06/18/20 [History Last Taken Unknown] cyanocobalamin (vitamin B-12) 1,000 mcg tablet 1,000 mcg PO DAILY 06/18/20 [History Last Taken Unknown] thiamine HCl (vitamin B1) 100 mg tablet 100 mg PO DAILY 07/06/22 [History Last Taken Unknown] Allergy/AdvReac Type Severity Reaction Status Date / Time No Known Allergies Allergy Verified 07/06/22 05:57 Social History (Updated 06/18/20 @ 09:[address] Son Us MD) Smoking Status: Former smoker quit date: 05/31/74 pack-years: 11 alcohol intake: current alcohol intake frequency: 3 or more drinks per day Alcohol type: beer ROS ROS ED Constitutional Constitutional ED: Denies chills or fever(s) Eyes Eyes: Denies change in vision ENT ENT ED: Denies sore throat Cardiovascular Cardiovascular: Denies chest pain Respiratory/Chest Respiratory/Chest: Denies cough or dyspnea Gastrointestinal Gastrointestinal: Denies abdominal pain, diarrhea, nausea or vomiting Genitourinary Genitourinary ED: Denies dysuria or hematuria Musculoskeletal Musculoskeletal: Reports back pain and neck pain Integumentary Reports Abrasions Neurologic Neurologic: Denies headache(s) or paresthesias Hematologic/Lymphatic Hematologic/Lymphatic: Denies easy bleeding or easy bruising EXAM Physical Exam Const Vital Signs: 07/06/22 05:53 Temperature 97.7 F L Temperature Source Temporal Pulse Rate 86 Respiratory Rate 18 Blood Pressure 157/92 H Blood Pressure Mean 113 Pulse Ox 99 Oxygen Delivery Method Room Air Positive well nourished and well developed General Appearance ED: well developed HEENT Reports dry mucous membranes HEENT Narrative: Patient has small amount of soft tissue swelling with superficial abrasion along the left posterior parietal and occipital portion of the scalp. There are no signs of depressed or basilar skull fracture. No septal hematoma Mouth ED: Yes dry mucous membranes Mouth: dry mucous membranes Eyes PERRL and EOMs intact bilaterally Eyes Narrative: No hyphema Neck Neck Narrative: No bony deformity or step-off of the cervical spine the patient does have midline pain over top the neck around C5-C7. Chest Wall palpation of chest normal Chest Narrative: No bony deformity or crepitance of the chest wall Resp normal respiratory effort and clear to auscultation bilaterally Cardio regular rate and regular rhythm Rate: other Other Details: Radial pulses are plus 2 out of 4 bilaterally are equal and symmetric GI normal to inspection, nondistended, normoactive bowel sounds, non-tender, non-distended and no masses GI Narrative: No voluntary guarding or rigidity no pulsatile mass. No abrasions or ecchymosis noted Auscultation: normoactive bowel sounds Palpation: soft Back/Spine Back/Spine Narrative: There is mild pain with palpation along the upper thoracic midline vertebrae numbers 4-7. However there is no bony deformity or step-offs. No pain on palpation along the midline lumbar spine also no bony deformity or step-offs. Extrem (more content not included)... Normal [facility] Ethanol [facility]-ncon 023 Ethanol [Mass/Vol] mg/dL Normal <11 [facility] Comment on above: Order Comment: Speci men Type: BLOOD SPECIMENOrdering Facility: [facility] Address: [address] [place] [id number] Performed By: #### 5 643-2 ####[facility] LABORATORYCLIA [id number] [place] [address] [place] HISTORY PHYSICALon 3 HISTORY PHYSICAL HNO ID: [id number] Author: Kodak Hurst PA-C Service: General Surgery Author Type: Physician Traffic Chief Type: HANDP Filed: 07/06/2022 3:29 PM Note Text: TRAUMA CONSULT NOTE [facility] ARRIVAL DATE: 07/06/2022 ARRIVAL TIME: 928 CATEGORY: Consult - Transfer from [facility] ED INJURY DATE: 07/04/2022 INJURY TIME: Unknown Subjective This is a 66 year old White male with PMH significant for HTN, BPH, chronic ETOH abuse and chronic hyponatremia (baseline 120 per review of notes) who presents to [facility] ED this morning as a trauma transfer from [facility]. Patient reportedly fell down approximately 13 steps at home Wednesday night. He describes the fall as mechanical and states that his heavy leather biker jacket was weighing him down. Denies presyncopal symptoms but does admit to drinking alcohol that day. He states that he was unable to get up and was assisted up by a neighbor the next morning around 0500. Secondary to persistent back pain, he was taken by a family member to [facility] ED this morning where CT imaging of his cervical spine revealed a C4 spinous process fracture, vertical fracture of C7 and bilateral C6-7 facet fractures/subluxations. CT brain was determined negative for acute intracranial pathology. A CT A/P was ordered but does not appear to have been completed prior to transfer. Patient primarily notes midline back pain between his shoulder blades. He notes mild headache, minimal neck pain and denies numbness, tingling or paresthesias of his upper or lower extremities. Denies CP, SOB, abdominal pain, or focal extremity discomfort. He does confirm daily consumption of approximately 10-12 beers for several years. Last alcoholic beverage was Wednesday night before his fall. He denies use of anticoagulation but takes medication daily to control his blood pressure which he cannot currently name. GCS 15. HPI/CHIEF COMPLAINT: Fall down ~13 steps on 07/04/2022 BRIEF DESCRIPTION OF INJURIES: 1.) C4 spinous process fracture 2.) Vertical fracture of C7 3.) Bilateral C6-7 fracture/subluxations CODE STATUS: Not discussed ALLERGIES No Known Allergies (Not in a hospital admission) There is no immunization history on file for this patient. PAST MEDICAL HISTORY Diagnosis Date Advance directive discussed with patient 11/19/2021 Discussed 10/2021 Alcohol abuse 04/25/2018 Alcohol abuse 04/25/2018 12 pck per day since around 2014 (maybe longer) Benign prostatic hyperplasia without lower urinary tract symptoms 08/01/2019 Elevated alkaline phosphatase level 06/16/2021 Alcoholic liver disease Elevated LFTs 04/25/2018 Ex-smoker 04/25/2018 Started at 7 yo, 1/2-1 PPD and quit at age 19 Ex-smoker 04/25/2018 Started at 7 yo, 1/2-1 PPD and quit at age 19 Fatty liver, alcoholic 05/08/2018 History of right shoulder fracture Hypertension, essential 02/07/2018 Medicare annual wellness visit, subsequent 08/01/2019 :Medicare Part B: 09/28/2018 Last done: 08/01/2019 Tibia/fibula fracture PAST SURGICAL HISTORY Procedure Laterality Date 2D ECHO (EXEP) 06/21/2020 EF=60%, mild menchaca dysf, 1+ [place] COLONOSCOPY 01/09/2019 Dr. Gonzalez, repeat 10 yrs REMV CATARACT EXTRACAP,INSERT LENS Bilateral Summer/fall of 2021 Social History Tobacco Use Smoking status: Former Smokeless tobacco: Never Tobacco comments: quit when he was 19 Vaping Use Vaping Use: Never used Substance Use Topics Alcohol use: Yes Alcohol/week: 105.0 standard drinks Types: 42 Cans of Beer (12oz) per week Comment: 6-12 pack a day Drug use: No ROS: Is the patient having any pain? Yes LOCATION: Midline upper back pain Constitutional: Negative Eye/Ear/Nose: Negative Respiratory: Negative Cardiovascular: Negative GI/Liver/Biliary: Negative Genitourinary: Negative Psychiatric: Negative Neurologic: Negative Musculoskeletal: + back pain Integument: Negative Endocrine: Negative Heme/Lymph: Negative OBJECTIVE: PHYSICAL EXAM: Genl: Appears age appropriate. No acute distress. Resting comfortably. Head/Face: Normocephalic. Atraumatic. Poor dentition with multiple missing teeth Eyes: EOMI. Sclera not icteric, not injected Neck: + Midline C-spine tenderness without stepoffs. Back: + midline thoracic tenderness without stepoffs or deformities. Back exam fairly limited secondary to spine precautions and lack of assistance turning patient. Resp: Lungs clear bilat. No wheezes. No rales. Breathing is non-labored on RA. No chest wall tenderness or crepitus. CVS: RRR. No murmur, rub, gallop. 2+ pulses at RA, DP, PT bilat. GI: Abdomen is soft, non-tender, not distended. Bowel sounds normoactive. No peritonitis MSK: CORDERO. Extremities without clubbing, cyanosis, edema. Normal ROM x 4. No gross deformities. Skin: Warm and dry. No lesions of concern. Not jaundiced. Neuro: AANDOx3. Strength, sensation, proprioception normal. GCS15. Psych: Normal mood. Normal affect. Appropriate insight into current (more content not included)... Normal [facility] Lipase SerPl-cCncon 07-06-19 23 Lipase [Catalytic activity/Vol] 33 U/L Normal 16-61 [facility] Comment on above: Order Comment: Speci men Type: BLOOD SPECIMENOrdering Facility: [facility] Address: [address] [place], [place] [id number] Performed By: #### 2 4323-8, 3040-3, 2157-6 ####[facility] LABORATORYCLIA [id number] [address] [id number] [place] [facility] Lumbar Spine 2 or 3 Viewson 07-06-2022 Lumbar Spine 2 or 3 Views [facility] [address] [place] [id number] Lumbar Spine 2 or 3 Views MR#: [id number] Acct: [id number] Name: YARITZA HENDERSON Rep #: [id number] : 1955 M 66 From: Ubaldo mckeon MD PCP: Dr. Fredrick Feliciano MD Status: [facility] Study: Lumbar Spine 2 or 3 Views Date of Exam: Exam# [id number] Ordering Dr: Bravo Wesley DO STUDY: X-RAY - LUMBAR SPINE REASON FOR EXAM: Male, 66 years old. History of fall. TECHNIQUE: 2 view(s) of the lumbar spine were obtained. COMPARISON: None FINDINGS: Normal lumbar lordosis. There is no substantial scoliosis. There is a normal alignment of the vertebrae. There is multilevel endplate spondylosis of the lumbar vertebrae. There is multi-level degenerative disc disease with multi-level disc space narrowing. Contrast is seen within the bilateral renal collecting systems in keeping with recent IV contrast injection. RAD/Lumbar Spine 2 or 3 Views IMPRESSION: Degenerative changes of the spine, as detailed above. Electronically Signed: Ubaldo Ga MD at 9:18 EST , CC: Dr. 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 MQ: [id number] COMPARISON: Cervical and thoracic spine CT 07/06/2022.. RESULT: CERVICAL: Counting reference: Craniocervical junction. Anatomic Variants: None. Localizer images: No significant findings. Alignment: There is mild grade 1 anterolisthesis of C3 on C4. Alignment is otherwise anatomic. There is mild reversal of the normal cervical lordosis. Craniocervical junction: Craniocervical junction is normal. Cord: The cervical spinal cord is within normal limits of signal intensity and morphology. Bone marrow signal/fracture: There is a mild anterior wedge compression fracture of the C7 vertebral body. There is T2/STIR hyperintensity along the anterior endplate, likely edema and in keeping with an acute/subacute compression fracture. There is no evidence of retropulsion. Cervical soft tissues: There is mild to moderate edema in the dorsal paraspinal soft tissues extending from C2 to C7, likely posttraumatic. The paraspinal soft tissues are within normal limits. C2-C3: There is mild bilateral facet arthropathy and mild diffuse disc bulge also partial effacement of ventral thecal sac without cord impingement. There is no neural foraminal narrowing. C3-C4: There is moderate bilateral facet arthropathy and diffuse disc bulge resulting in partial effacement of ventral thecal sac without cord impingement and mild bilateral neural foraminal narrowing. C4-C5: There is moderate bilateral facet arthropathy, disc osteophyte complex and ligamentum flavum thickening resulting in partial effacement of the dorsal and ventral thecal sac, moderate spinal canal stenosis, mild right and moderate to severe left neural foraminal narrowing. C5-C6: There is moderate bilateral facet arthropathy, disc osteophyte complex and ligamentum flavum thickening resulting in severe spinal canal stenosis and severe bilateral neural foraminal narrowing. C6-C7: There is moderate bilateral facet arthropathy, diffuse disc bulge and ligamentum flavum thickening resulting in partial effacement of ventral thecal sac, mild spinal canal stenosis, mild right and moderate to severe left neural foraminal narrowing. C7-T1: There is mild bilateral facet arthropathy and small right paracentral disc protrusion resulting partial effacement of ventral thecal sac without cord impingement and mild bilateral neural foraminal narrowing. THORACIC: Counting reference: Craniocervical and lumbosacral junctions For the purposes of this report, L4-5 is considered the level of the iliac crest and assume there are 5 lumbar-type vertebrae. Anatomic variant: None. Explosive Expert (topogram) images: There is a tiny T2 hyperintense lesion in interpolar region of left kidney, likely resenting a renal cyst. Alignment: Alignment is anatomic. There is mild S-shaped scoliosis of the lumbar spine. Cord: The thoracic spinal cord is within normal limits of signal intensity and morphology. Bone marrow signal/fracture: There is minimal anterior wedge compression fracture of the inferior endplate of T2 and mild anterior wedge compression fracture of the inferior endplate of T1. There is corresponding STIR hyperintensity along the inferior endplates of T1 and T2. Present on the prior CTs of 07/06/2022. Findings likely represent minimal acute/subacute wedge compression fractures. There is no evidence of retropulsion. There are small nodes at inferior endplates of T9, T10 and superior endplate of T11.There is an ill-defined T1 hyperintense and T2 hyperintense and partially STIR hypointense lesion in the right T11 pedicle which corresponds with a partially lytic lesion in the prior CT, likely representing an intraosseous hemangioma. Thoracic soft tissues: The paraspinal soft tissues are within normal limits. Canal and foramina: There are scattered mild paracentral disc protrusions and diffuse disc bulges throughout the thoracic spine, most pronounced at T5-T6, T6-T7 T10-T11 resulting partial effacement of ventral thecal sac without cord impingement. There is no significant neural foraminal narrowing. IMPRESSION: Acute/subacute mild anterior wedge compression fractures of the C7 vertebral body. Acute/subacute minimal anterior wedge compression fractures of the T1 and T2 vertebral bodies. Multilevel degenerative changes of the cervical and thoracic spine, most pronounced at C5-C6 with severe spinal canal stenosis and severe bilateral neural foraminal narrowing. Cervical Anatomic Variant: None. Assume 7 cervical vertebrae with (more content not included)... Normal [facility] MRI THORACIC SPINE WO IVCONo n 07-06-2022 MRI THORACIC SPINE WO IVCON * * *Final Report* * * DATE OF EXAM: Jul 06 2022 6:43PM [facility] 0325 - MRI THORACIC SPINE WO IVCON / PROCEDURE REASON: Spine fracture, thoracic, traumatic * * * * Physician Interpretation * * * * EXAMINATION: MRI CERVICAL SPINE WO IVCON, MRI THORACIC SPINE WO IVCON CLINICAL HISTORY: Spine fracture, cervical, traumatic TECHNIQUE: Routine cervical and thoracic spine MR protocol without gadolinium. MQ: [id number] COMPARISON: Cervical and thoracic spine CT 07/06/2022.. RESULT: CERVICAL: Counting reference: Craniocervical junction. Anatomic Variants: None. Localizer images: No significant findings. Alignment: There is mild grade 1 anterolisthesis of C3 on C4. Alignment is otherwise anatomic. There is mild reversal of the normal cervical lordosis. Craniocervical junction: Craniocervical junction is normal. Cord: The cervical spinal cord is within normal limits of signal intensity and morphology. Bone marrow signal/fracture: There is a mild anterior wedge compression fracture of the C7 vertebral body. There is T2/STIR hyperintensity along the anterior endplate, likely edema and in keeping with an acute/subacute compression fracture. There is no evidence of retropulsion. Cervical soft tissues: There is mild to moderate edema in the dorsal paraspinal soft tissues extending from C2 to C7, likely posttraumatic. The paraspinal soft tissues are within normal limits. C2-C3: There is mild bilateral facet arthropathy and mild diffuse disc bulge also partial effacement of ventral thecal sac without cord impingement. There is no neural foraminal narrowing. C3-C4: There is moderate bilateral facet arthropathy and diffuse disc bulge resulting in partial effacement of ventral thecal sac without cord impingement and mild bilateral neural foraminal narrowing. C4-C5: There is moderate bilateral facet arthropathy, disc osteophyte complex and ligamentum flavum thickening resulting in partial effacement of the dorsal and ventral thecal sac, moderate spinal canal stenosis, mild right and moderate to severe left neural foraminal narrowing. C5-C6: There is moderate bilateral facet arthropathy, disc osteophyte complex and ligamentum flavum thickening resulting in severe spinal canal stenosis and severe bilateral neural foraminal narrowing. C6-C7: There is moderate bilateral facet arthropathy, diffuse disc bulge and ligamentum flavum thickening resulting in partial effacement of ventral thecal sac, mild spinal canal stenosis, mild right and moderate to severe left neural foraminal narrowing. C7-T1: There is mild bilateral facet arthropathy and small right paracentral disc protrusion resulting partial effacement of ventral thecal sac without cord impingement and mild bilateral neural foraminal narrowing. THORACIC: Counting reference: Craniocervical and lumbosacral junctions For the purposes of this report, L4-5 is considered the level of the iliac crest and assume there are 5 lumbar-type vertebrae. Anatomic variant: None. Explosive Expert (topogram) images: There is a tiny T2 hyperintense lesion in interpolar region of left kidney, likely resenting a renal cyst. Alignment: Alignment is anatomic. There is mild S-shaped scoliosis of the lumbar spine. Cord: The thoracic spinal cord is within normal limits of signal intensity and morphology. Bone marrow signal/fracture: There is minimal anterior wedge compression fracture of the inferior endplate of T2 and mild anterior wedge compression fracture of the inferior endplate of T1. There is corresponding STIR hyperintensity along the inferior endplates of T1 and T2. Present on the prior CTs of 07/06/2022. Findings likely represent minimal acute/subacute wedge compression fractures. There is no evidence of retropulsion. There are small nodes at inferior endplates of T9, T10 and superior endplate of T11.There is an ill-defined T1 hyperintense and T2 hyperintense and partially STIR hypointense lesion in the right T11 pedicle which corresponds with a partially lytic lesion in the prior CT, likely representing an intraosseous hemangioma. Thoracic soft tissues: The paraspinal soft tissues are within normal limits. Canal and foramina: There are scattered mild paracentral disc protrusions and diffuse disc bulges throughout the thoracic spine, most pronounced at T5-T6, T6-T7 T10-T11 resulting partial effacement of ventral thecal sac without cord impingement. There is no significant neural foraminal narrowing. IMPRESSION: Acute/subacute mild anterior wedge compression fractures of the C7 vertebral body. Acute/subacute minimal anterior wedge compression fractures of the T1 and T2 vertebral bodies. Multilevel degenerative changes of the cervical and thoracic spine, most pronounced at C5-C6 with severe spinal canal stenosis and severe bilateral neural foraminal narrowing. Cervical Anatomic Variant: None. Assume 7 cervical vertebrae with (more content not included)... Normal [facility] PT panel Coag (PPP)on 2022 INR Coag (PPP) [Relative time] 1.0 {INR} Normal 0.9-1.3 [facility] Comment on above: Order Comment: Speci men Type: BLOOD SPECIMENOrdering Facility: [facility] Address: [address] [place] [phone] Result Comment: Jenni min K Antagonist (VKA) Therapeutic Range: INR 2 to 3 (Target INR of 2.5) Note: For patients treated with VKA drugs, such as warfarin, the [employer] 2012 Guideline recommends a therapeutic INR range of 2 to 3 (target INR of 2.5). This recommendation includes high-risk patients with antiphospholipid syndrome with previous arterial or venous thromboembolism, current-generation mechanical or bioprosthetic aortic heart valve replacement. Note: Patients with mechanical aortic valve replacement and additional risk factors for thromboembolic events (atrial fibrillation, previous thromboembolism, LV dysfunction, hypercoagulable conditions) or an older generation mechanical AVR (i.e., ball in-Cage) or any mechanical MVR should have a INR therapeutic range of 2.5 to 3.5 (target INR of 3). Nina GREGORIO, et al. Chest 2012, 141:7S-47S Aleksandr GOLDSTEIN et al. [facility] 2017, 70: 252-289 Performed By: #### 3 4528-0, 19723-4 ####[facility] [id number] [address] [place] PT Coag (PPP) [Time] 10.8 s Normal 9.7-13.0 [facility] Comment on above: Order Comment: Speci men Type: BLOOD SPECIMENOrdering Facility: [facility] Address: [address] [place], [place] [id number] Performed By: #### 3 4528-0, 41842-3 ####[facility] LABORATORYCLIA [id number] [place] [id number] [facility] [place] SARS-CoV-2 RNA Resp Ql DILLON+p robeon 07-06-2022 SARS-CoV-2 (COVID-19) RNA DILLON+probe Ql (Resp) COVID 19 RESULT: Not detected The method used is RT-PCR or an equivalent NAAT method. Reference Range(the expected result in uninfected individuals): Not detected Normal [facility] Comment on above: Performed By: #### 9 4500-6 ####[facility] LABORATORYCLIA [id number] [address] OF [facility] Spine Cervical without Contr ason 07-06-2022 Spine Cervical without Contras [facility] [address] [place] [address] Spine Cervical without Contras MR#: [id number] Acct: [id number] Name: YARITZA HENDERSON Rep #: [id number] : 1955 M 66 From: Elia Palomares MD PCP: Dr. Fredrick Feliciano MD Status: REG ER Study: Spine Cervical without Contras Date of Exam: 0 07/06/22 Exam# [id number] Ordering Dr: Bravo Wesley DO ADDENDUM by Dr. Elia Palomares MD on 07/06/22 at 0743 EXAM: CT cervical spine. HISTORY: trauma TECHNIQUE: No intravenous contrast. A radiation dose optimization technique was used for this scan. COMPARISON: CT cervical spine November 04, 2013. LIMITATIONS: None. FRACTURES: There is an acute fracture of the spinous process of C4. An acute fracture of the C7 vertebral body is oriented vertically at the midline anteriorly extending posteriorly to the left. A compression fracture of C7 is also identified at the superior endplate with loss of height of less than 25%, likely acute. No retropulsion. Fractures of the C6 and C7 facets on the right may also be acute. Mild subluxation of the facets at C6-7 is associated with the superior tip of the superior facet of C7 interposed into the fracture defect within the inferior facet of C6. SPINAL CANAL: No significant stenosis. DEGENERATIVE CHANGE: Moderate degenerative change. ALIGNMENT: Mild kyphosis centered at C5-6. SOFT TISSUE: Normal. OTHER: None. CONCLUSION: Fractures of the C7 vertebral body. Fractures of the C6 and C7 facets on the right with suspected associated unilateral facet subluxation. Fracture of the spinous process of C4. N.B. : The above Results were Read Back by Elia Palomares MD to Bravo Wesley DO, and understanding confirmed on 07/06/2022 07:41:17 (ET). Electronically Signed: Elia Palomares MD at 7:43 EST , 07/06/22 0743 Date cc: Dr. Fredrick Feliciano MD; Bravo Wesley DO * Signed ADDENDUM by Dr. Elia Palomares MD on 07/06/[address]/Spine Cervical without Contras IMPRESSION: undefined 07/06/22 0750 Date cc: Dr. Fredrick Feliciano MD; Bravo Wesley DO * Signed EXAM: CT cervical spine. HISTORY: trauma TECHNIQUE: No intravenous contrast. A radiation dose optimization technique was used for this scan. COMPARISON: CT cervical spine November 04, 2013. LIMITATIONS: None. FRACTURES: There is an acute fracture of the spinous process of C4. An acute fracture of the C7 vertebral body is oriented vertically at the midline anteriorly extending posteriorly to the left. A compression fracture of C7 is also identified at the superior endplate with loss of height of less than 25%, likely acute. No retropulsion. Fractures of the C6 and C7 facets on the right may also be acute. Mild subluxation of the facets at C6-7 is associated with the superior tip of the superior facet of C7 interposed into the fracture defect within the inferior facet of C6. SPINAL CANAL: No significant stenosis. DEGENERATIVE CHANGE: Moderate degenerative change. ALIGNMENT: Mild kyphosis centered at C5-6. SOFT TISSUE: Normal. OTHER: None. CONCLUSION: Fractures of the C7 vertebral body. Fractures of the C6 and C7 facets on the right with suspected associated unilateral facet subluxation. Fracture of the spinous process of C4. N.B. : The above Results were Read Back by Elia Palomares MD to Bravo Wesley DO, and understanding confirmed on 07/06/2022 07:41:17 (ET). Electronically Signed: Elia Palomares MD at 7:43 EST Reading Location ID and State: [address] [place] [address] Tel , Service support , CT/Spine Cervical without Contras IMPRESSION: undefined CC: Dr. Fredrick Feliciano MD; Bravo Wesley DO Splicing Machine Operator: Signed Normal [facility] TOX SCREEN ROUT URon 023 Amphetamines Confirm (U) [Mass/Vol] Negative Normal Negative [facility] Comment on above: Order Comment: Speci men Type: URINE SPECIMENOrdering Facility: [facility] Address: [address] [place] [address] Result Comment: Cuto ff threshold at 1000 ng/mL. Performed By: #### U TOX2 ####[facility] LABORATORYCLIA [id number] [place] [address] [place] BARBITURATES, URINE Negative Normal Negative [facility] Comment on above: Order Comment: Speci men Type: URINE SPECIMENOrdering Facility: [facility] Address: [address] [place] [address] Result Comment: Cuto ff threshold at 200 ng/mL. Performed By: #### U TOX2 ####[facility] LABORATORYCLIA [id number] [place] [address] [place] BENZODIAZEPINES, UR Negative Normal Negative [facility] Comment on above: Order Comment: Speci men Type: URINE SPECIMENOrdering Facility: [facility] Address: [address] [place] [address] Result Comment: Cuto ff threshold at 200 ng/mL. Performed By: #### U TOX2 ####[facility] LABORATORYCLIA [id number] [address] OF [place] CANNABINOIDS,URINE Negative Normal Negative [facility] Comment on above: Order Comment: Speci men Type: URINE SPECIMENOrdering Facility: [facility] Address: [address] [place] [address] Result Comment: Cuto ff threshold at 50 ng/mL. Performed By: #### U TOX2 ####[facility]ORATORYCLIA [id number] [address] Cocaine Ql (U) Negative Normal Negative [facility] Comment on above: Order Comment: Speci men Type: URINE SPECIMENOrdering Facility: [facility] Address: [address] [place] [address] Result Comment: Cuto ff threshold at 300 ng/mL. Performed By: #### U TOX2 ####[facility]ORATORYCLIA [id number] [address] Ethanol (U) [Mass/Vol] <11 Normal <11 [facility] Comment on above: Order Comment: Speci men Type: URINE SPECIMENOrdering Facility: [facility] Address: [address] [place] [address] Performed By: #### U TOX2 ####[facility]ORATORYCLIA [id number] [address] Opiates Screen Ql (U) Positive Abnormal Negative [facility] Comment on above: Order Comment: Speci men Type: URINE SPECIMENOrdering Facility: [facility] Address: [address] [place] [address] Result Comment: Cuto ff threshold at 300 ng/mL. Performed By: #### U TOX2 ####[facility]ATORYCLIA [id number] [address] [place] oxyCODONE cutoff Screen (U) [Mass/Vol] Negative Normal Negative [facility] Comment on above: Order Comment: Speci men Type: URINE SPECIMENOrdering Facility: [facility] Address: [address] [place] [place] [address] Result Comment: Cuto ff threshold at 100 ng/mL. Performed By: #### U TOX2 ####[facility]ATORYCLIA [id number] [address] Phencyclidine Ql (U) Negative Normal Negative [facility] Comment on above: Order Comment: Speci men Type: URINE SPECIMENOrdering Facility: [facility] Address: [address] [place] [address] Result Comment: Cuto ff threshold at 25 ng/mL. Performed By: #### U TOX2 ####[facility]ORATORYCLIA [id number] [address] TYPE + SCREENon 07-06-2022 ABO A Normal [facility] Comment on above: Order Comment: Speci men Type: BLOOD SPECIMEN Ordering Facility: [facility] Address: [address] [place] [address] Performed By: #### T SCR #### [facility] CLIA [id number] [address] HISTORICAL AB SCR STATUS Negative Normal [facility] Comment on above: Order Comment: Speci men Type: BLOOD SPECIMEN Ordering Facility: [facility] Address: [address] [place] [address] Performed By: #### T SCR #### [facility] CLIA [id number] [address] Rh Nom (Bld) Positive Normal [facility] Comment on above: Order Comment: Speci men Type: BLOOD SPECIMEN Ordering Facility: [facility] Address: [address] [place] [address] Performed By: #### T SCR #### [facility] CLIA [id number] [address] [place] TYPE AND SCREEN EXPIRATION 07/09/2022 23:59 Normal [facility] Comment on above: Order Comment: Speci men Type: BLOOD SPECIMEN Ordering Facility: [facility] Address: [place] [address] Performed By: #### T SCR #### [facility] CLIA [id number] [address] Thoracic Spine 3 Viewson Thoracic Spine 3 Views [facility] [address] [place] [address] Thoracic Spine 3 Views MR#: [id number] Acct: [id number] Name: YARITZA HENDERSON Rep #: [id number] : 1955 M 66 From: Elia Palomares MD PCP: Dr. Fredrick Feliciano MD Status: REG ER Study: Thoracic Spine 3 Views Date of Exam: 07/06/22 Exam# [id number] Ordering Dr: Bravo Wesley DO INDICATION: pain EXAMINATION/TECHNIQUE: X-RAY - XR Spine Thoracic 3 Views COMPARISON: None. FINDINGS: Frontal and lateral views of the thoracic spine were obtained. Slight scoliosis. Mild to moderate degenerative changes. No acute fracture of the thoracic spine is identified. Fractures of the cervical spine are described in the CT cervical spine report. RAD/Thoracic Spine 3 Views IMPRESSION: No acute fracture identified in the thoracic spine. Electronically Signed: Elia Palomares MD at 7:48 EST , CC: Dr. Fredrick Feliciano MD; Bravo Wesley DO Splicing Machine Operator: Signed Normal [facility] XR CHEST 1V FRONTALon 2022 XR CHEST 1V FRONTAL * * *Final Report* * * DATE OF EXAM: Jul 06 2022 11:07AM AKX [id number] - XR CHEST 1V FRONTAL / PROCEDURE REASON: Chest pain, nonspecific * * * * Physician Interpretation * * * * EXAMINATION: CHEST RADIOGRAPH (SINGLE VIEW AP OR PA) CLINICAL HISTORY: Chest pain, nonspecific, Polytrauma, blunt MQ: XC1_5 Comparison: RESULT: Lines, tubes, and devices: None. Lungs and pleura: No consolidation. No lung mass. No pleural effusion. Cardiomediastinal silhouette: Normal cardiomediastinal silhouette. Other: There are remote right-sided rib fractures. There is elevation of the right hemidiaphragm. IMPRESSION: No acute radiographic abnormality. Splicing Machine Operator: PSCB Transcribe Date/Time: Jul 06 2022 11:12A Dictated by : PARISA ALVARADO MD This examination was interpreted and the report reviewed and electronically signed by: PARISA ALVARADO MD on Jul 06 2022 11:13AM EST [id number] Normal [facility] aPTT PPPon 07-06-2022 aPTT Coag (PPP) [Time] 30.1 s Normal 23.0-32.4 [facility] Comment on above: Order Comment: Speci men Type: BLOOD SPECIMENOrdering Facility: [facility] Address: [address] [place] [phone] Performed By: #### 3 4528-0, 76587-6 ####[facility] LABORATORYCLIA [id number] [place] [address] [place] Vital Signs Date Time Vital Sign Value Performing Clinician Gregoryi jocelyn 01-18-2025 09:38-0400 Body height 177 cm Erum Castaneda PA-C Work Phone: [facility] 01-18-2025 09:38-0400 Body mass index (BMI) [Ratio] 23.17 kg/m2 Erum Castaneda PA-C Work Phone: [facility] 01-18-2025 09:38-0400 Body temperature 97.2 [degF] Erum Castaneda PA-C Work Phone: [facility] 01-18-2025 09:38-0400 Body weight 72.58 kg Erum Castaneda PA-C Work Phone: [facility] 01-18-2025 09:38-0400 Diastolic blood pressure 56 mm[Hg] Erum Castaneda PA-C Work Phone: [facility] 01-18-2025 09:38-0400 Heart rate 80 /min Erum Castaneda PA-C Work Phone: [facility] 01-18-2025 09:38-0400 Respiratory rate 16 /min Erum Castaneda PA-C Work Phone: [facility] 01-18-2025 09:38-0400 SaO2% (BldA) [Mass fraction] 97 % Erum Castaneda PA-C Work Phone: [facility] 01-18-2025 09:38-0400 Systolic blood pressure 83 mm[Hg] Erum Castaneda PA-C Work Phone: [facility] 07-10-2024 11:41-0500 Body mass index (BMI) [Ratio] 25.05 kg/m2 Erum Castaneda PA-C Work Phone: [facility] 07-10-2024 11:41-0500 Body temperature 97.11 [degF] Erum Castaneda PA-C Work Phone: [facility] 07-10-2024 11:41-0500 Body weight 78.47 kg Erum Castaneda PA-C Work Phone: [facility] 07-10-2024 11:41-0500 Diastolic blood pressure 69 mm[Hg] Erum Castaneda PA-C Work Phone: [facility] 07-10-2024 11:41-0500 Heart rate 71 /min Erum Castaneda PA-C Work Phone: [facility] 07-10-2024 11:41-0500 Respiratory rate 18 /min Erum Castaneda PA-C Work Phone: [facility] 07-10-2024 11:41-0500 SaO2% (BldA) [Mass fraction] 98 % Erum Castaneda PA-C Work Phone: [facility] 07-10-2024 11:41-0500 Systolic blood pressure 124 mm[Hg] Erum Castaneda PA-C Work Phone: [facility] 06-26-2024 11:24-0500 Body mass index (BMI) [Ratio] 24.32 kg/m2 Erum Castaneda PA-C Work Phone: [facility] 06-26-2024 11:24-0500 Body temperature 97.7 [degF] Erum Castaneda PA-C Work Phone: [facility] 06-26-2024 11:24-0500 Body weight 76.2 kg Erum Castaneda PA-C Work Phone: [facility] 06-26-2024 11:24-0500 Diastolic blood pressure 70 mm[Hg] Erum Castaneda PA-C Work Phone: [facility] 06-26-2024 11:24-0500 Heart rate 58 /min Erum Castaneda PA-C Work Phone: [facility] 06-26-2024 11:24-0500 Respiratory rate 16 /min Erum Castaneda PA-C Work Phone: [facility] 06-26-2024 11:24-0500 SaO2% (BldA) [Mass fraction] 100 % Erum Castaneda PA-C Work Phone: [facility] 06-26-2024 11:24-0500 Systolic blood pressure 122 mm[Hg] Erum Castaneda PA-C Work Phone: [facility] 12-27-2023 09:24-0400 Body height 177 cm Erum Castaneda PA-C Work Phone: [facility] 12-27-2023 09:24-0400 Body mass index (BMI) [Ratio] 25.19 kg/m2 Erum Castaneda PA-C Work Phone: [facility] 12-27-2023 09:24-0400 Body temperature 98.01 [degF] Erum Castaneda PA-C Work Phone: [facility] 12-27-2023 09:24-0400 Body weight 78.93 kg Erumjm Castaneda PA-C Work Phone: [facility] 12-27-2023 09:24-0400 Diastolic blood pressure 70 mm[Hg] Erum Castaneda PA-C Work Phone: [facility] 12-27-2023 09:24-0400 Heart rate 76 /min Erum Castaneda PA-C Work Phone: [facility] 12-27-2023 09:24-0400 Respiratory rate 18 /min Erum Castaneda PA-C Work Phone: [facility] 12-27-2023 09:24-0400 SaO2% (BldA) [Mass fraction] 99 % Erum Castaneda PA-C Work Phone: [facility] 12-27-2023 09:24-0400 Systolic blood pressure 118 mm[Hg] Erum Castaneda PA-C Work Phone: [facility] 04-03-2023 12:00-0400 Body temperature 98.01 [degF] Karol Hope STORY TELLER.MULTIMEDIA ASSISTANT Work Phone: [facility] 04-03-2023 12:00-0400 Body weight 83.46 kg Karol Hope STORY TELLER.MULTIMEDIA ASSISTANT Work Phone: [facility] 04-03-2023 12:00-0400 Diastolic blood pressure 79 mm[Hg] Karol Hope STORY TELLER.MULTIMEDIA ASSISTANT Work Phone: [facility] 04-03-2023 12:00-0400 Heart rate 72 /min Karol Hope STORY TELLER.MULTIMEDIA ASSISTANT Work Phone: [facility] 04-03-2023 12:00-0400 Respiratory rate 18 /min Karol Hope STORY TELLER.MULTIMEDIA ASSISTANT Work Phone: [facility] 04-03-2023 12:00-0400 SaO2% (BldA) [Mass fraction] 98 % Karol Hope STORY TELLER.MULTIMEDIA ASSISTANT Work Phone: [facility] 04-03-2023 12:00-0400 Systolic blood pressure 142 mm[Hg] Karol Hope STORY TELLER.MULTIMEDIA ASSISTANT Work Phone: [facility] 10-12-2022 15:08-0400 Body height 177.8 cm Ivania Castellanos MD Work Phone: [facility] 10-12-2022 15:08-0400 Body weight 82.4 kg Ivania Castellanos MD Work Phone: [facility] 10-12-2022 15:08-0400 Diastolic blood pressure 76 mm[Hg] Ivania Castellanos MD Work Phone: [facility] 10-12-2022 15:08-0400 Heart rate 72 /min Ivania Castellanos MD Work Phone: [facility] 10-12-2022 15:08-0400 SaO2% (BldA) [Mass fraction] 100 % Ivania Castellanos MD Work Phone: [facility] 10-12-2022 15:08-0400 Systolic blood pressure 138 mm[Hg] Ivania Castellanos MD Work Phone: [facility] 08-18-2022 11:09-0400 Body height 177.8 cm Leah Blair STORY TELLER.MULTIMEDIA ASSISTANT Work Phone: [facility] 08-18-2022 11:09-0400 Body weight 75.3 kg Leah Blair STORY TELLER.MULTIMEDIA ASSISTANT Work Phone: [facility] 08-18-2022 11:09-0400 Diastolic blood pressure 84 mm[Hg] Leah Blair STORY TELLER.MULTIMEDIA ASSISTANT Work Phone: [facility] 08-18-2022 11:09-0400 Heart rate 72 /min Leah Blair STORY TELLER.MULTIMEDIA ASSISTANT Work Phone: [facility] 08-18-2022 11:09-0400 SaO2% (BldA) [Mass fraction] 100 % Leah Blair STORY TELLER.MULTIMEDIA ASSISTANT Work Phone: [facility] 08-18-2022 11:09-0400 Systolic blood pressure 143 mm[Hg] Leah Blair APRN.MULTIMEDIA ASSISTANT Work Phone: [facility] 07-28-2022 10:32-0500 Body temperature 97.3 [degF] Amie Reinaderman-Leyva PT Work Phone: [facility] 07-28-2022 10:32-0500 Diastolic blood pressure 78 mm[Hg] Amie Halderman-Leyva PT Work Phone: [facility] 07-28-2022 10:32-0500 Heart rate 79 /min Amie Halderman-Leyva PT Work Phone: [facility] 07-28-2022 10:32-0500 Respiratory rate 16 /min Amie Reinaderman-Leyva PT Work Phone: [facility] 07-28-2022 10:32-0500 SaO2% (BldA) [Mass fraction] 99 % Amie Halderman-Leyva PT Work Phone: [facility] 07-28-2022 10:32-0500 Systolic blood pressure 132 mm[Hg] Amie Halderman-Leyva PT Work Phone: [facility] 07-17-2022 09:34-0500 Body height 177.8 cm Leah Blair APRN.MULTIMEDIA ASSISTANT Work Phone: [facility] 07-17-2022 09:34-0500 Body weight 75.3 kg Leah Blair STORY TELLER.MULTIMEDIA ASSISTANT Work Phone: [facility] 07-17-2022 09:34-0500 Diastolic blood pressure 66 mm[Hg] Leah Blair STORY TELLER.MULTIMEDIA ASSISTANT Work Phone: [facility] 07-17-2022 09:34-0500 Heart rate 78 /min Leah Blair STORY TELLER.MULTIMEDIA ASSISTANT Work Phone: [facility] 07-17-2022 09:34-0500 SaO2% (BldA) [Mass fraction] 97 % Leah Blair STORY TELLER.MULTIMEDIA ASSISTANT Work Phone: [facility] 07-17-2022 09:34-0500 Systolic blood pressure 90 mm[Hg] Leah Blair STORY TELLER.MULTIMEDIA ASSISTANT Work Phone: [facility] 07-16-2022 12:10-0500 Body temperature 68 [degF] Erika Medina VETERANS EMPLOYMENT REPRESENTATIVE Work Phone: [facility] 07-16-2022 12:10-0500 Diastolic blood pressure 68 mm[Hg] Erika Medina VETERANS EMPLOYMENT REPRESENTATIVE Work Phone: [facility] 07-16-2022 12:10-0500 Heart rate 98 /min Erika Medina VETERANS EMPLOYMENT REPRESENTATIVE Work Phone: [facility] 07-16-2022 12:10-0500 Respiratory rate 18 /min Erika Medina VETERANS EMPLOYMENT REPRESENTATIVE Work Phone: [facility] 07-16-2022 12:10-0500 SaO2% (BldA) [Mass fraction] 98 % Erika Mednia VETERANS EMPLOYMENT REPRESENTATIVE Work Phone: [facility] 07-16-2022 12:10-0500 Systolic blood pressure 118 mm[Hg] Erika Medina VETERANS EMPLOYMENT REPRESENTATIVE Work Phone: [facility] 07-16-2022 09:51-0500 Body weight 75.3 kg Fredrick Feliciano MD Work Phone: [facility] 07-16-2022 09:51-0500 Diastolic blood pressure 84 mm[Hg] Fredrick Feliciano MD Work Phone: [facility] 07-16-2022 09:51-0500 Heart rate 78 /min Fredrick Feliciano MD Work Phone: [facility] 07-16-2022 09:51-0500 Respiratory rate 16 /min Fredrick Feliciano MD Work Phone: [facility] 07-16-2022 09:51-0500 Systolic blood pressure 124 mm[Hg] Fredrick Feliciano MD Work Phone: [facility] 07-15-2022 13:43-0500 Body temperature 98.29 [degF] Nayana Berto OT/L Work Phone: [facility] 07-15-2022 13:43-0500 Diastolic blood pressure 68 mm[Hg] Nayana Berto OT/L Work Phone: [facility] 07-15-2022 13:43-0500 Heart rate 68 /min Nayana Berto OT/L Work Phone: [facility] 07-15-2022 13:43-0500 Respiratory rate 18 /min Nayana Berto OT/L Work Phone: [facility] 07-15-2022 13:43-0500 SaO2% (BldA) [Mass fraction] 94 % Naynaa Berto OT/L Work Phone: [facility] 07-15-2022 13:43-0500 Systolic blood pressure 124 mm[Hg] Nayana Berto OT/L Work Phone: [facility] 07-13-2022 14:28-0500 Body temperature 97.9 [degF] Amie Meraz-Autumn PT Work Phone: [facility] 07-13-2022 14:28-0500 Diastolic blood pressure 76 mm[Hg] Amie Halderman-Leyva PT Work Phone: [facility] 07-13-2022 14:28-0500 Heart rate 70 /min Amie Halderman-Leyva PT Work Phone: [facility] 07-13-2022 14:28-0500 Respiratory rate 16 /min Amie Halderman-Leyva PT Work Phone: [facility] 07-13-2022 14:28-0500 SaO2% (BldA) [Mass fraction] 99 % Amie Halderman-Leyva PT Work Phone: [facility] 07-13-2022 14:28-0500 Systolic blood pressure 130 mm[Hg] Amie Hussain PT Work Phone: [facility] 07-11-2022 13:27-0500 Body temperature 97.3 [degF] Tami Josue PT Work Phone: [facility] 07-11-2022 13:27-0500 Diastolic blood pressure 78 mm[Hg] Tami Josue PT Work Phone: [facility] 07-11-2022 13:27-0500 Heart rate 72 /min Tami Diazox PT Work Phone: [facility] 07-11-2022 13:27-0500 Respiratory rate 16 /min Tami Josue PT Work Phone: [facility] 07-11-2022 13:27-0500 SaO2% (BldA) [Mass fraction] 97 % Tami Josue PT Work Phone: [facility] 07-11-2022 13:27-0500 Systolic blood pressure 132 mm[Hg] Tami Josue PT Work Phone: [facility] Encounters Encounter Date Encounter Type Care Provider Facility Start: 01-19-2025 End: 01-19-2025 Follow-up encounter Erum Castaneda PA-C Work Phone: [facility] Comment on above: Results Start: 01-18-2025 End: 01-18-2025 Subsequent hospital visit by physician [facility] Work Phone: Radiology Comment on above: Fall, initial encoun ter [W19.XXXA] Start: 01-18-2025 End: 01-18-2025 ambulatory ERUM CASTANEDA Facility:[facility] Start: 01-18-2025 End: 01-18-2025 Office outpatient visit 25 minutes Erum Castaneda PA-C Work Phone: [facility] Comment on above: Orthostatic hypotens ion (Primary Dx); Fall, initial encounter; Hypertension, essential; Rib pain; Hyponatremia; Alcohol abuse; Fatty liver, alcoholic; Folate deficiency; Prostate disorder; Anemia, unspecified type; Contusion of right elbow, initial encounter Start: 01-18-2025 End: 01-18-2025 ambulatory ERUM CASTANEDA Facility:[facility] Start: 11-06-2024 End: 11-06-2024 Refill Fredrick Feliciano MD Work Phone: [facility] Comment on above: Refill Request Start: 10-05-2024 End: 10-06-2024 Refill Fredrick Feliciano MD Work Phone: [facility] [place] Comment on above: Refill Request Start: 07-10-2024 End: 07-10-2024 ambulatory ERUM CASTANEDA Facility:[facility] Start: 07-10-2024 End: 07-10-2024 Patient encounter procedure Erum Leonel LOUIS-C Work Phone: [facility] [place] Comment on above: Hypertension, essent ial (Primary Dx); Orthostatic hypotension Start: 07-06-2024 End: 07-06-2024 Telephone encounter Erum Castaneda PA-C Work Phone: [facility] [place] Comment on above: Results Start: 07-04-2024 End: 07-04-2024 ambulatory ERUM CASTANEDA Facility:[facility] Start: 06-26-2024 End: 06-26-2024 medical behavioral hospital ERUM CASTANEDA Facility:[facility] Start: 06-26-2024 End: 06-26-2024 Patient encounter procedure Erum Castaneda PA-C Work Phone: [facility] [place] Comment on above: Hypertension, essent ial (Primary Dx); PVD (peripheral vascular disease) ([facility]); Alcohol abuse; Hyponatremia; Orthostatic hypotension; Alkaline phosphatase elevation Start: 06-21-2024 End: 06-21-2024 ambulatory ERUM CASTANEDA Facility:[facility] Start: 05-02-2024 End: 05-02-2024 Refill Fredrick Feliciano MD Work Phone: [facility] [place] Comment on above: Refill Request Start: 02-29-2024 End: 02-29-2024 Telephone encounter Fredrick Feliciano MD Work Phone: [address] [place] [address] Comment on above: Patient Question Start: 02-07-2024 End: 02-07-2024 Telephone encounter Erum Leonel LOUIS-C Work Phone: [facility] [place] Comment on above: Results Start: 02-02-2024 End: 02-02-2024 ambulatory ERUM CASTANEDA Facility:[facility] Start: 01-14-2024 Telephone encounter Erum Kay ayo PA-C Work Phone: [facility] [place] Comment on above: Results Start: 01-13-2024 End: 01-13-2024 Subsequent hospital visit by physician [facility] Work Phone: Radiology Comment on above: Alkaline phosphatase elevation [R74.8] Start: 01-06-2024 Telephone encounter Erum Kay ronnieviviana PA-C Work Phone: [facility] [place] Comment on above: Results Start: 12-30-2023 Telephone encounter Erum Kay ayo PA-C Work Phone: [facility] [place] Comment on above: Results Start: 12-27-2023 End: 12-27-2023 Patient encounter procedure Erum Castaneda PA-C Work Phone: [facility] [place] Comment on above: Medicare annual well ness visit, subsequent (Primary Dx); Advance directive discussed with patient; Screening for depression; Encounter for screening examination for other mental health and behavioral disorders; Abnormal skin growth; Alcohol abuse; Hyponatremia; PVD (peripheral vascular disease) (HCC); Hypertension, essential; Prostate disorder; Folate deficiency; Fatty liver, alcoholic Start: 10-21-2023 Refill Марина brewster APRN.CNP Work Phone: [facility] [place] Comment on above: Refill Request Start: 10-21-2023 Telephone encounter Fredrick Feliciano MD Work Phone: [facility] Start: 07-19-2023 ambulatory Maria [facility] Comment on above: Population Health Na vigation Outreach ([place] [facility]) Start: 04-07-2023 End: 04-07-2023 Subsequent hospital visit by physician Mel[facility] [place] Work Phone: Radiology Comment on above: Acute bilateral low back pain without sciatica [M54.50] Start: 04-03-2023 End: 04-03-2023 Patient encounter procedure Karol Hope STORY TELLER.MULTIMEDIA ASSISTANT Work Phone: [facility] Comment on above: Acute bilateral low back pain without sciatica (Primary Dx) Start: 03-16-2023 Telephone encounter Марина Martel noel STORY TELLER.MULTIMEDIA ASSISTANT Work Phone: [facility] [place] Comment on above: Results Start: 01-01-2023 Telephone encounter Fredrick Feliciano MD Work Phone: [facility] [place] Comment on above: Results Start: 12-31-2022 End: 12-31-2022 Subsequent hospital visit by physician [facility]) Work Phone: [facility] Comment on above: Alcohol abuse [F10.1 0] Start: 12-23-2022 Refill Erum Mcnamara on PA-C Work Phone: [facility] [place] Comment on above: Results Forms Start: 12-16-2022 Patient encounter procedure Erum Castaneda PA-C Work Phone: [facility] Work Phone: Start: 10-12-2022 End: 10-12-2022 ambulatory [facility] Facility:[facility] Start: 10-12-2022 End: 10-12-2022 Patient encounter procedure Ivania Estrada MD Work Phone: [facility] Comment on above: Spinal stenosis in c ervical region (Primary Dx); Closed displaced fracture of seventh cervical vertebra with routine healing, unspecified fracture morphology, subsequent encounter Start: 10-12-2022 End: 10-12-2022 Subsequent hospital visit by physician [facility] Comment on above: Closed displaced fra cture of seventh cervical vertebra with routine healing, unspecified fracture morphology, subsequent encounter [S12.600D] Spinal stenosis in c ervical region [M48.02] Start: 09-17-2022 Telephone encounter Fredrick Feliciano MD Work Phone: [facility] Comment on above: Results Start: 09-16-2022 ambulatory [facility] [facility] Dave ity:[facility] Start: 08-18-2022 End: 08-18-2022 ambulatory LEAH BLAIR [facility] Start: 08-18-2022 End: 08-18-2022 Patient encounter procedure Leah Blair STORY TELLER.MULTIMEDIA ASSISTANT Work Phone: [facility] Comment on above: Spinal stenosis in c ervical region (Primary Dx); Closed displaced fracture of seventh cervical vertebra with routine healing, unspecified fracture morphology, subsequent encounter; Closed fracture of first thoracic vertebra with routine healing, unspecified fracture morphology, subsequent encounter Start: 08-18-2022 End: 08-18-2022 Subsequent hospital visit by physician [facility] [employer] [facility] [place] [employer] ANALYST Comment on above: Closed fracture of s pinous process of cervical vertebra, subsequent encounter [S12.9XXD] Start: 08-05-2022 ambulatory Fredrick mata MD Work Phone: [facility] Comment on above: Allied Health Visit (Medication Adherence Outreach ) Start: 08-04-2022 Home visit Fredrick mata MD Work Phone: [facility] [place] Comment on above: Closed displaced fra cture of seventh cervical vertebra with routine healing, unspecified fracture morphology, subsequent encounter (Primary Dx); Subluxation of C6-C7 cervical vertebrae, subsequent encounter; Closed displaced fracture of fourth cervical vertebra with routine healing, unspecified fracture morphology, subsequent encounter; Fall, in, on, steps, subsequent encounter; Hyposmolality syndrome; Alcohol abuse; Hypertension, essential; Alcoholic fatty liver; Anemia, unspecified type; Benign prostatic hyperplasia, unspecified whether lower urinary tract symptoms present; Person living alone; Personal history of fall Start: 07-28-2022 End: 07-28-2022 Home visit Amie Nixon PT Work Phone: [facility] Comment on above: PT AGENCY DC W VISIT Start: 07-17-2022 End: 07-17-2022 ambulatory LEAH BLAIR Facility[facility] Start: 07-17-2022 End: 07-17-2022 Patient encounter procedure Leah Blair STORY TELLER.MULTIMEDIA ASSISTANT Work Phone: [facility] Comment on above: Spinal stenosis in c ervical region (Primary Dx); Closed fracture of spinous process of cervical vertebra, subsequent encounter; Closed fracture of first thoracic vertebra with routine healing, unspecified fracture morphology, subsequent encounter Start: 07-17-2022 End: 07-17-2022 Subsequent hospital visit by physician [facility] [employer] [facility] [place] [employer] ANALYST Comment on above: Closed displaced fra cture of seventh cervical vertebra with routine healing, unspecified fracture morphology, subsequent encounter [S12.600D] Start: 07-16-2022 Telephone encounter Fredrick Feliciano MD Work Phone: [facility] Comment on above: Results Start: 07-16-2022 End: 07-16-2022 Home visit Erika Haney VETERANS EMPLOYMENT REPRESENTATIVE Work Phone: [facility] Comment on above: VETERANS EMPLOYMENT REPRESENTATIVE ROUTINE Start: 07-16-2022 End: 07-16-2022 Patient encounter procedure Fredrick Feliciano MD Work Phone: [facility] [place] Comment on above: Closed fracture of c ervical vertebra, unspecified cervical vertebral level, initial encounter ([facility]) (Primary Dx); Hypertension, essential; Hyponatremia; Alcohol abuse Start: 07-15-2022 End: 07-15-2022 Refill Ivania Estrada MD Work Phone: [facility] Comment on above: Refill Request Medication Problem OT EVAL Start: 07-13-2022 End: 07-13-2022 Home visit Amie Nixon PT Work Phone: [facility] Comment on above: PT ROUTINE Refill Request Start: 07-11-2022 End: 07-11-2022 Home visit Tami Josue PT Work Phone: [facility] Comment on above: PT SOC Start: 07-09-2022 ambulatory Rula Leong RN [facility] Start: 07-09-2022 Telephone encounter Ivania wilcox MD Work Phone: [facility] Comment on above: Appointment Transition Of Care ( Discharged 2.8.23 initial outreach) Start: 07-08-2022 Orders Only Medina ji PA-C Work Phone: [facility] Comment on above: Closed displaced fra cture of seventh cervical vertebra with routine healing, unspecified fracture morphology, subsequent encounter (Primary Dx); Compression fracture of T1 vertebra, sequela Start: 07-06-2022 End: 07-08-2022 Evaluation and management of inpatient DAVID BOYKIN Facility:[facility] Start: 07-06-2022 End: 07-06-2022 Emergency department patient visit Fredrick Feliciano Facility:[facility] Start: 06-09-2022 Telephone encounter Erum OSWALDC Work Phone: [facility] Comment on above: Results Start: 06-03-2022 Refill Erum LOUIS-C Work Phone: [facility] Comment on above: Refill Request Start: 05-18-2022 Telephone encounter Fredrick Feliciano MD Work Phone: [facility] Comment on above: Patient Update Start: 12-03-2021 Telephone encounter Fredrick Feliciano MD Work Phone: [facility] Comment on above: Results Start: 11-19-2021 Patient encounter procedure Fredrick Feliciano MD Work Phone: [facility] Work Phone: Procedures Date Procedure Procedure Detail Performing Clinician Start: 01-18-2025 Lipid 1995 panel - S vishnu or Plasma Erum OSWALDC Work Phone: Start: 01-13-2024 Us abdominal real ti me w/image limited Erum OSWALDC Work Phone: Start: 12-27-2023 Adult depression scr eening assessment Erum OSWALDC Work Phone: Start: 12-27-2023 Lipid 1995 panel - S vishnu or Plasma Erum OSWALDC Work Phone: Start: 04-07-2023 Radex spine lumbosac ral 2/3 views Karol Hope STORY TELLER.MULTIMEDIA ASSISTANT Work Phone: Start: 12-31-2022 Cta abdl aorta&bi il iofem w/contrast&postp Fredrick Feliciano MD Work Phone: Start: 12-16-2022 Lipid 1996 panel - S vishnu or Plasma Марина Aparicio STORY TELLER.MULTIMEDIA ASSISTANT Work Phone: Start: 07-06-2022 Antibody screen LEAH JOHNNIE Comment on above: Order Comment: Speci men Type: BLOOD SPECIMEN Ordering Facility: [facility] Address: [address] [place], [place] [id number] Performed By: #### T SCR #### [facility] CLIA [id number] [address] [place] [address] Start: 11-19-2021 Adult depression scr eening assessment Fredrick Feliciano MD Work Phone: Start: 01-09-2019 Colonoscopy Fredrick das MD Work Phone: Plan of Treatment Date Care Activity Detail Author Start: 01-18-2030 Lipid panel Lipid Screening [facility] Start: 01-09-2029 Colonoscopy COLONOSCOPY [facility] Start: 01-09-2029 COLORECTAL CANCER SCREENING COLORECTAL CANCER SCREENING [facility] Start: 01-09-2029 Screening for malignant neoplasm of colon [facility] Start: 12-26-2028 Lipid panel Lipid Screening [facility] Start: 2028 RSV Vaccine (1 - 1-dose 75+ series) RSV Vaccine (1 - 1-dose 75+ series) [facility] Start: 02-05-2028 Urine microalbumin profile [facility] Start: 01-19-2028 Diabetes Screening Diabetes Screening [facility] Start: 12-17-2027 Lipid 1996 panel - Serum or Plasma Lipid Screening [facility] Start: 12-17-2027 Lipid panel Lipid Screening [facility] Start: 12-17-2027 LIPID SCREEN LIPID SCREEN [facility] Start: 06-21-2027 Diabetes Screening Diabetes Screening [facility] Start: 12-26-2026 Diabetes Screening Diabetes Screening [facility] Start: 11-19-2026 LIPID SCREEN LIPID SCREEN [facility] Start: 11-19-2026 PROSTATE CANCER SCREENING DISCUSSION PROSTATE CANCER SCREENING DISCUSSION [facility] Start: 06-23-2026 Diabetes Screening Diabetes Screening [facility] Start: 01-18-2026 Annual PCP Team Chronic Disease Visit Annual PCP Team Chronic Disease Visit [facility] Start: 12-16-2025 DIABETES SCREEN DIABETES SCREEN [facility] Start: 12-16-2025 Diabetes Screening Diabetes Screening [facility] Start: 09-16-2025 DIABETES SCREEN DIABETES SCREEN [facility] Start: 07-16-2025 DIABETES SCREEN DIABETES SCREEN [facility] Start: 07-10-2025 Annual PCP Team Chronic Disease Visit Annual PCP Team Chronic Disease Visit [facility] Start: 07-10-2025 BP Controlled (<130/80) BP Controlled (<130/80) [facility] Start: 07-08-2025 DIABETES SCREEN DIABETES SCREEN [facility] Start: 06-26-2025 Annual PCP Team Chronic Disease Visit Annual PCP Team Chronic Disease Visit [facility] Start: 06-26-2025 BP Controlled (<130/80) BP Controlled (<130/80) [facility] Start: 06-26-2025 Covid-19 Vaccine ( season) Covid-19 Vaccine () [facility] Comment on above: Postponed from 01/30/2024 (Declined at t his time) Start: 06-08-2025 DIABETES SCREEN DIABETES SCREEN [facility] Start: 02-19-2025 DIABETES SCREEN DIABETES SCREEN [facility] Start: 02-08-2025 End: 02-08-2025 Patient encounter procedure 02/08/2025 11:40 AM EDT Office Visit [facility] [address] [place] [id number] Erum Castaneda PA-C [address] [place] [id number] Medicare Wellness/bp recheck [facility] Comment on above: Medicare Wellness/bp recheck Start: 01-18-2025 End: 04-19-2025 VITAMIN B1 (THIAMINE), WHOLE BLOOD [facility] Comment on above: Expected: 01/18/2025, Expires: Start: 01-09-2025 End: 01-09-2025 Patient encounter procedure Family Medic [facility] [place] Comment on above: Medicare Wellness Start: 12-26-2024 Annual PCP Team Chronic Disease Visit Annual PCP Team Chronic Disease Visit [facility] Start: 12-26-2024 Anxiety Screening Anxiety Screening [facility] Start: 12-26-2024 BP Controlled (<130/80) BP Controlled (<130/80) [facility] in Start: 12-26-2024 Covid-19 Vaccine () Covid-19 Vaccine () [facility] Comment on above: Postponed from 01/29/2023 (Declined at t his time) Start: 12-26-2024 Depression Screening Depression Screening [facility] Start: 12-26-2024 RSV Vaccine (1 - 1-dose 60+ series) RSV Vaccine (1 - 1-dose 60+ series) [facility] Comment on above: Postponed from 2013 (Declined at t his time) Start: 11-19-2024 DIABETES SCREEN DIABETES SCREEN [facility] Start: 07-10-2024 End: 07-10-2024 Patient encounter procedure 07/10/2024 11:40 AM EST Office Visit [facility] [address] [facility] [place] [address] Erum Castaneda PA-C [address] [place], [place] [id number] 2 wk follow up Family [facility] [place] Comment on above: 2 wk follow up Start: 06-29-2024 End: 06-29-2024 Patient encounter procedure 06/29/2024 10:40 AM EST Office Visit [facility] [address] [facility] [place] [place] [address] Erum Castaneda PA-C [address] [facility], [place] [id number] 6 month routine f/u Family [facility] [place] Comment on above: 6 month routine f/u Start: 06-26-2024 End: 09-25-2024 ALK PHOS ISOENZYM BL ALK PHOS ISOENZYM BL Lab Routine Alkaline phosphatase elevation Expected: 06/26/2024, Expires: 09/25/2024 [facility] Work Phone: Comment on above: Expected: 06/26/2024, Expires: Start: 06-26-2024 End: 09-25-2024 CBC W Auto Differential panel - Blood COMPLETE BLOOD COUNT AND DIFFERENTIAL Lab Routine Alkaline phosphatase elevation Expected: 06/26/2024, Expires: 09/25/2024 [facility] Comment on above: Expected: 06/26/2024, Expires: Start: 06-26-2024 End: 09-25-2024 Gamma glutamyl transferase [Enzymatic activity/volume] in Serum or Plasma GGT Lab Routine Alkaline phosphatase elevation Expected: 06/26/2024, Expires: 09/25/2024 [facility] Comment on above: Expected: 06/26/2024, Expires: Start: 06-26-2024 End: 06-26-2024 Patient encounter procedure 06/26/2024 11:40 AM EST Office Visit [facility] [address] [place], [place] [phone] Erum Castaneda PA-C [address] [place], [place] [phone] 6 month FU [facility] Comment on above: 6 month FU Start: 06-23-2024 Annual PCP Team Chronic Disease Visit Annual PCP Team Chronic Disease Visit [facility] Start: 06-23-2024 BP Controlled (<130/80) BP Controlled (<130/80) [facility] in Start: 05-31-2024 Advance Directive Discussion Advance Directive Discussion [facility] Start: 05-31-2024 End: 08-30-2024 CBC W Auto Differential panel - Blood COMPLETE BLOOD COUNT AND DIFFERENTIAL Lab Routine Anemia, unspecified type Folate deficiency Alcohol abuse Fatty liver, alcoholic Expected: 05/31/2024, Expires: 08/30/2024 [facility] Comment on above: Expected: 05/31/2024, Expires: Start: 05-31-2024 End: 08-30-2024 Cobalamin (Vitamin B12) [Mass/volume] in Serum or Plasma VITAMIN B12 Lab Routine Anemia, unspecified type Folate deficiency Alcohol abuse Fatty liver, alcoholic Expected: 05/31/2024, Expires: 08/30/2024 [facility] Comment on above: Expected: 05/31/2024, Expires: Start: 05-31-2024 End: 08-30-2024 Comprehensive metabolic 2000 panel - Serum or Plasma COMPREHENSIVE METABOLIC PANEL Lab Routine Hypertension, essential Alcohol abuse Fatty liver, alcoholic Expected: 05/31/2024, Expires: 08/30/2024 [facility] Work Phone: Comment on above: Expected: 05/31/2024, Expires: Start: 05-31-2024 End: 08-30-2024 Folate [Mass/volume] in Serum or Plasma FOLATE, SERUM Lab Routine Anemia, unspecified type Folate deficiency Alcohol abuse Fatty liver, alcoholic Expected: 05/31/2024, Expires: 08/30/2024 [facility] Comment on above: Expected: 05/31/2024, Expires: Start: 05-31-2024 Medicare Advantage Annual Wellness Visit Medicare Advantage Annual Wellness Visit [facility] Start: 05-31-2024 End: 08-30-2024 Urinalysis complete panel - Urine URINALYSIS, WITH MICROSCOPIC Lab Routine Hypertension, essential Alcohol abuse Fatty liver, alcoholic Expected: 05/31/2024, Expires: 08/30/2024 [facility] Comment on above: Expected: 05/31/2024, Expires: Start: 05-31-2024 End: 08-30-2024 VITAMIN B1 (THIAMINE), WHOLE BLOOD VITAMIN B1 (THIAMINE), WHOLE BLOOD Lab Routine Alcohol abuse Expected: 05/31/2024, Expires: 08/30/2024 [facility] Comment on above: Expected: 05/31/2024, Expires: Start: 04-07-2024 End: 07-07-2024 Prostate Specific Ag Free [Mass/volume] in Serum or Plasma PROSTATE SPECIFIC ANTIGEN, FREE Lab Routine Elevated PSA Expected: 04/07/2024, Expires: 07/07/2024 [facility] Comment on above: Expected: 04/07/2024, Expires: 5 Start: 02-14-2024 End: 05-15-2024 Alkaline phosphatase [Enzymatic activity/volume] in Serum or Plasma ALKALINE PHOSPHATASE Lab Routine Alkaline phosphatase elevation Expected: 02/14/2024, Expires: 05/15/2024 [facility] Work Phone: Comment on above: Expected: 02/14/2024, Expires: 4 Start: 02-14-2024 End: 05-15-2024 Mitochondria Ab [Presence] in Serum by Immunofluorescence MITOCHONDRIAL M2 IGG SERUM Lab Routine Alkaline phosphatase elevation Expected: 02/14/2024, Expires: 05/15/2024 [facility] Comment on above: Expected: 02/14/2024, Expires: Start: 01-30-2024 Covid-19 Vaccine ( season) Covid-19 Vaccine () [facility] Start: 01-30-2024 Covid-19 Vaccine () Covid-19 Vaccine () [facility] Start: 01-30-2024 End: 04-30-2024 Prostate Specific Ag Free [Mass/volume] in Serum or Plasma PROSTATE SPECIFIC ANTIGEN, FREE Lab Routine Elevated PSA Expected: 01/30/2024, Expires: 04/30/2024 [facility] Work Phone: Comment on above: Expected: 01/30/2024, Expires: Start: 12-30-2023 End: 03-30-2024 ALK PHOS ISOENZYM BL ALK PHOS ISOENZYM BL Lab Routine Alkaline phosphatase elevation Expected: 12/30/2023, Expires: 03/30/2024 [facility] Comment on above: Expected: 12/30/2023, Expires: Start: 12-30-2023 End: 03-30-2024 Gamma glutamyl transferase [Enzymatic activity/volume] in Serum or Plasma GGT Lab Routine Alkaline phosphatase elevation Expected: 12/30/2023, Expires: 03/30/2024 [facility] Comment on above: Expected: 12/30/2023, Expires: Start: 12-27-2023 End: 03-27-2024 VITAMIN B1 (THIAMINE), WHOLE BLOOD [facility] Work Phone: Comment on above: Expected: 12/27/2023, Expires: Start: 12-27-2023 End: 12-27-2023 Patient encounter procedure 12/27/2023 9:40 AM EDT Office Visit [facility] [address], [place] [phone] Erum Castaneda PA-C [address] [place], [place] [phone] wellness [facility] Comment on above: wellness Start: 12-17-2023 ANNUAL PCP TEAM CHRONIC DISEASE VISIT ANNUAL PCP TEAM CHRONIC DISEASE VISIT [facility] Start: 12-17-2023 COVID-19 VACCINE (#1) COVID-19 VACCINE (#1) [facility] Comment on above: Postponed from 04/30/1956 (Declined at t his time) Start: 07-17-2023 BP CONTROLLED (<130/80) BP CONTROLLED (<130/80) [facility] Start: 07-16-2023 ANNUAL PCP TEAM CHRONIC DISEASE VISIT ANNUAL PCP TEAM CHRONIC DISEASE VISIT [facility] Start: 07-16-2023 BP CONTROLLED (<130/80) BP CONTROLLED (<130/80) [facility] Start: 07-15-2023 BP CONTROLLED (<130/80) BP CONTROLLED (<130/80) [facility] Start: 06-08-2023 ANNUAL PCP TEAM CHRONIC DISEASE VISIT ANNUAL PCP TEAM CHRONIC DISEASE VISIT [facility] Start: 05-31-2023 Advance Directive Discussion Advance Directive Discussion [facility] Start: 05-31-2023 Behavioral Health Screening Behavioral Health Screening [facility] Start: 05-31-2023 Depression Assessment Depression Assessment [facility] Start: 03-25-2023 End: 05-25-2023 Folate [Mass/volume] in Serum or Plasma FOLATE SERUM Lab Routine Folate deficiency Alcohol abuse Expected: 03/25/2023, Expires: 05/25/2023 [facility] Work Phone: Comment on above: Expected: 03/25/2023, Expires: 3 Start: 03-25-2023 End: 05-25-2023 VITAMIN B1 (THIAMINE), WHOLE BLOOD VITAMIN B1 (THIAMINE), WHOLE BLOOD Lab Routine Folate deficiency Alcohol abuse Expected: 03/25/2023, Expires: 05/25/2023 [facility] Work Phone: Comment on above: Expected: 03/25/2023, Expires: 3 Start: 01-29-2023 Covid-19 Vaccine () Covid-19 Vaccine () [facility] Start: 11-19-2022 Adult depression screening assessment DEPRESSION SCREENING [facility] Start: 11-19-2022 ANNUAL PCP TEAM CHRONIC DISEASE VISIT ANNUAL PCP TEAM CHRONIC DISEASE VISIT [facility] Start: 11-19-2022 BP CONTROLLED (<130/80) BP CONTROLLED (<130/80) [facility] in Start: 11-19-2022 COVID-19 VACCINE (#1) COVID-19 VACCINE (#1) [facility] Comment on above: Postponed from 04/30/1956 (Declined at t his time) Start: 07-30-2022 End: 09-29-2022 Basic metabolic 2000 panel - Serum or Plasma BASIC METABOLIC PNL Lab Routine Renal insufficiency Expected: 07/30/2022, Expires: 09/29/2022 [facility] Work Phone: Comment on above: Expected: 07/30/2022, Expires: 3 Start: 05-31-2022 ADVANCE DIRECTIVE DISCUSSION ADVANCE DIRECTIVE DISCUSSION [facility] Start: 05-31-2022 DEPRESSION ASSESSMENT DEPRESSION ASSESSMENT [facility] Start: 12-03-2021 End: 02-02-2022 Mitochondria Ab [Presence] in Serum by Immunofluorescence MITOCHONDRIAL AB SCR Lab Routine Elevated alkaline phosphatase level Expected: 12/03/2021, Expires: 02/02/2022 [facility] Work Phone: Comment on above: Expected: 12/03/2021, Expires: 2 Start: 12-03-2021 End: 02-02-2022 PROTEIN ELECT RND UR W/INTERP PROTEIN ELECT RND UR W/INTERP Lab Routine Elevated serum protein level Expected: 12/03/2021, Expires: 02/02/2022 [facility] Work Phone: Comment on above: Expected: 12/03/2021, Expires: 2 Start: 12-03-2021 End: 02-02-2022 PROTEIN ELECTROPHORESIS SERUM W/INTERP PROTEIN ELECTROPHORESIS SERUM W/INTERP Lab Routine Elevated serum protein level Expected: 12/03/2021, Expires: 02/02/2022 [facility] Work Phone: Comment on above: Expected: 12/03/2021, Expires: 2 Start: 05-31-2021 DEPRESSION ASSESSMENT DEPRESSION ASSESSMENT [facility] Start: 2013 RSV Vaccine (1 - 1-dose 60+ series) RSV Vaccine (1 - 1-dose 60+ series) [facility] Start: 1998 COLOGUARD (FIT-DNA) COLOGUARD (FIT-DNA) [facility] Start: [address] COLONOGRAPHY [facility] Start: 1998 FECAL OCCULT BLOOD FECAL OCCULT BLOOD [facility] Start: 1998 Screening for malignant neoplasm of colon [facility] Start: 1998 SIGMOIDOSCOPY SIGMOIDOSCOPY [facility] Start: 10-30-1971 BP CONTROLLED (<130/80) BP CONTROLLED (<130/80) [facility] in End: 09-17-2023 Ct cervical spine w/o contrast material CT CERVICAL SPINE WO IVCON Radiology Routine Closed displaced fracture of seventh cervical vertebra with routine healing, unspecified fracture morphology, subsequent encounter Spinal stenosis in cervical region 1 Occurrences starting 08/18/2022 until 09/17/2023 [facility] Work Phone: Comment on above: 1 Occurrences starting 08/18/2022 until 09/17/2023 End: 10-12-2022 Ct cervical spine w/o contrast material [facility] Work Phone: Comment on above: 1 Occurrences starting 10/12/2022 until 10/12/2022 End: 09-17-2023 Ct thoracic spine w/o contrast material CT THORACIC SPINE WO IVCON Radiology Routine Closed fracture of first thoracic vertebra with routine healing, unspecified fracture morphology, subsequent encounter 1 Occurrences starting 08/18/2022 until 09/17/2023 [facility] Work Phone: Comment on above: 1 Occurrences starting 08/18/2022 until 09/17/2023 End: 10-12-2022 Ct thoracic spine w/o contrast material [facility] Work Phone: Comment on above: 1 Occurrences starting 10/12/2022 until 10/12/2022 End: 08-07-2023 Radex spine cervical 2 or 3 views XR CERV GENERAL 2V AP/LAT Radiology Routine Closed displaced fracture of seventh cervical vertebra with routine healing, unspecified fracture morphology, subsequent encounter 1 Occurrences starting 07/08/2022 until 08/07/2023 [facility] Work Phone: Comment on above: 1 Occurrences starting 07/08/2022 until 08/07/2023 End: 08-16-2023 Radex spine cervical 2 or 3 views XR CERV GENERAL 2V AP/LAT Radiology Routine Closed fracture of spinous process of cervical vertebra, subsequent encounter 1 Occurrences starting 07/17/2022 until 08/16/2023 [facility] Work Phone: Comment on above: 1 Occurrences starting 07/17/2022 until 08/16/2023 End: 07-17-2022 Radex spine cervical 2 or 3 views [facility] Work Phone: Comment on above: 1 Occurrences starting 07/17/2022 until 07/17/2022 End: 08-18-2022 Radex spine cervical 2 or 3 views [facility] Work Phone: Comment on above: 1 Occurrences starting 08/18/2022 until 08/18/2022 End: 11-11-2023 Radex spine cervical 4 or 5 views XR CERV OTHER 4V AP/LAT/FLX/EXT Radiology Routine Spinal stenosis in cervical region 1 Occurrences starting 10/12/2022 until 11/11/2023 [facility] Work Phone: Comment on above: 1 Occurrences starting 10/12/2022 until 11/11/2023 End: 10-12-2022 Radex spine cervical 4 or 5 views [facility] Work Phone: Comment on above: 1 Occurrences starting 10/12/2022 until 10/12/2022 End: 05-02-2024 Radex spine lumbosacral 2/3 views XR LUMBAR LIMITED 2V AP/LAT Radiology STAT Acute bilateral low back pain without sciatica 1 Occurrences starting 04/03/2023 until 05/02/2024 [facility] Work Phone: Comment on above: 1 Occurrences starting 04/03/2023 until 05/02/2024 End: 08-07-2023 Radex spine thoracic 2 views XR THORACIC LIMITED 2V AP/LAT Radiology Routine Compression fracture of T1 vertebra, sequela 1 Occurrences starting 07/08/2022 until 08/07/2023 [facility] Work Phone: Comment on above: 1 Occurrences starting 07/08/2022 until 08/07/2023 End: 08-16-2023 Radex spine thoracic 2 views XR THORACIC LIMITED 2V AP/LAT Radiology Routine Closed fracture of first thoracic vertebra with routine healing, unspecified fracture morphology, subsequent encounter 1 Occurrences starting 07/17/2022 until 08/16/2023 [facility] Work Phone: Comment on above: 1 Occurrences starting 07/17/2022 until 08/16/2023 End: 07-17-2022 Radex spine thoracic 2 views [facility] Work Phone: Comment on above: 1 Occurrences starting 07/17/2022 until 07/17/2022 End: 08-18-2022 Radex spine thoracic 2 views [facility] Work Phone: Comment on above: 1 Occurrences starting 08/18/2022 until 08/18/2022 End: 05-02-2024 Radex spine thoracic 2 views XR THORACIC LIMITED 2V AP/LAT Radiology STAT Acute bilateral low back pain without sciatica 1 Occurrences starting 04/03/2023 until 05/02/2024 [facility] Work Phone: Comment on above: 1 Occurrences starting 04/03/2023 until 05/02/2024 End: 02-04-2025 US Abdomen RUQ US ABD RIGHT UPPER QUADRANT Radiology Routine Alkaline phosphatase elevation 1 Occurrences starting 01/06/2024 until 02/04/2025 [facility] Work Phone: Comment on above: 1 Occurrences starting 01/06/2024 until 02/04/2025 End: 02-17-2026 XR Ribs - right Views and Chest PA XR RIBS/CHEST 3V AP RIB/OBLS/CXR RIGHT Radiology Routine Fall, initial encounter Rib pain 1 Occurrences starting 01/18/2025 until 02/17/2026 [facility] Work Phone: Comment on above: 1 Occurrences starting 01/18/2025 until 02/17/2026 XR Ribs - right View s and Chest PA XR RIBS/CHEST 3V AP RIB/OBLS/CXR RIGHT Radiology Routine Fall, initial encounter Rib pain 01/18/2025 11:13 AM EDT [facility] Immunizations Immunization Date Immunization Notes Care Provider Evie marquez 11-04-2013 tetanus and diphther ia toxoids, adsorbed, preservative free, for adult use (2 Lf of tetanus toxoid and 2 Lf of diphtheria toxoid) Leah Blair APRN.CNP Work Phone: [facility] Payers Date Payer Category Payer Private Health Insurance [facility] HMO [id number] 2023 Unknown [id number] 2022 Medicare [id number] 2022 Self-pay 2022 Medicaid 1995 2018 Medicare [id number] 2018 Unknown ANTHEM BLUE CROS S AND BLUE SHIELD ANTHEM MEDIBLUE O [id number] 2018-Present [phone] [address] [place] [address] O [id number] 2018 Unknown [id number] 2018 Medicaid MEDICAID [facility] MEDICAID [id number] 2018-Present [phone] [address] [place] [address] Medicaid [id number] 2018 Medicaid [id number] Unknown [id number] Unknown [id number] Social History Date Type Detail Facility Start: 02-04-2018 End: 06-08-2022 Tobacco smoking status NHIS Ex-smoker [facility] Work Phone: Start: 02-04-2018 End: 06-08-2022 Tobacco use and exposure Smokeless tobacco non-user [facility] Work Phone: Start: 11-19-2021 End: 01-18-2025 Alcohol intake Current drinker of alcohol (finding) [facility] Start: 11-19-2021 End: 10-12-2022 Alcohol intake [facility] Work Phone: Start: 11-11-2020 History SDOH Alcohol Comment 6-12 pack a day [facility] Start: 02-04-2018 End: 06-08-2022 Tobacco Comment quit when he was 19 [facility] Start: 1955 Sex Assigned At Not on file [facility] Start: 11-09-2021 End: 11-19-2021 Exposure to SARS-CoV-2 (event) Not sure [facility] History of tobacco use Current smoker [facility] Work Phone: Start: 07-07-2022 History SDOH Financial 5 [facility] Start: 07-07-2022 History SDOH Food Worry 1 [facility] Start: 07-07-2022 History SDOH Transpo rt Med 2 [facility] Start: 10-12-2022 End: 12-16-2022 Tobacco use panel [facility] Work Phone: Start: 05-01-2012 How hard is it for y ou to pay for the very basics like food, housing, medical care, and heating Not hard at all [facility] Work Phone: (I/We) worried reyna er (my/our) food would run out before (I/we) got money to buy more. Never true [facility] Work Phone: In the past 12 month s, was there a time when you were not able to pay the mortgage or rent on time? No [facility] Work Phone: Start: 12-16-2022 Alcohol Comment 6 beers a day [facility] Functional Status Date Assessment Result Facility 07-08-2022 Are you deaf, or do you have serious difficulty hearing No 07/08/2022 4:51 PM Letty Phoenix RN No [facility] 07-08-2022 Are you blind, or do you have serious difficulty seeing, even when wearing glasses No 07/08/2022 4:51 PM Letty Phoenix RN No [facility] 07-08-2022 Do you have serious difficulty walking or climbing stairs No 07/08/2022 4:51 PM Letty Phoenix, RN No [facility] 07-08-2022 Do you have difficul ty dressing or bathing No 07/08/2022 4:51 PM Letty Phoenix, RN No [facility] 07-08-2022 Because of a physica l, mental, or emotional condition, do you have difficulty doing errands alone such as visiting a physician's office or shopping Yes 07/08/2022 4:51 PM Letty Phoenix, RN Yes [facility] Mental Status Date Assessment Result Facility 07-08-2022 Because of a physica l, mental, or emotional condition, do you have serious difficulty concentrating, remembering, or making decisions No 07/08/2022 4:51 PM Letty Phoenix, RN No [facility] Clinical Notes 04-25-2018 to 01-19-2025 Telephone Encounter - VANESSA AQUINO - 01/19/2025 2:14 PM EDTTelephone Encounter - VANESSA AQUINO - 01/19/2025 2:14 PM EDTTelephone Encounter - Erum Castaneda PA-C - 01/19/2025 2:05 PM EDT Note Date & Type Note Facility 01-19-2025 Telephone encounter Note Patient notified of below recommendation. Highly recommended that he proceed to ER. He states that he will work on finding a ride to take him to [facility]. Vanessa Aquino LPN [facility] 01-19-2025 Miscellaneous Notes Patient notified of below recommendation. Highly recommended that he proceed to ER. He states that he will work on finding a ride to take him to [facility]. Vanessa Aquino LPN Noted. Let patient know that I do feel like he needs to go to ER. With his symptoms yesterday and these lab results, I'm worried about acute kidney injury. He also has signs of possible viral infection. If he can get to [facility], that would be part of the clinic. Otherwise [facility] and we can send the labs for fyi. Erum Castaneda PA-C Spoke with patient at this time and notified of below. States that he feels about the same as yesterday with maybe a slight improvement. He reports that alcohol intake has been very limited given how he has been feeling. Vanessa Aquino LPN ----- Message from Erum Castaneda PA-C sent at 01/19/2025 10:30 AM EDT ----- ----- Message ----- From: Dionte, Felisha User Sent: 01/18/2025 6:28 PM EDT To: Erum Castaneda PA-C Let patient know that his sodium level is quite low and his creatinine is slightly elevated. His choloride is also low. With how he was feeling yesterday I am concerned by these numbers and may need to send him to ER. How much alcohol has he been drinking currently? How does he feel today compared to yesterday. Erum Castaneda PA-C documented in this encounter [facility] 01-19-2025 Telephone encounter Note Noted. Let patient know that I do feel like he needs to go to ER. With his symptoms yesterday and these lab results, I'm worried about acute kidney injury. He also has signs of possible viral infection. If he can get to [facility], that would be part of the clinic. Otherwise [facility] and we can send the labs for fyi. Erum Castaneda PA-C [facility] 01-19-2025 Telephone encounter Note Spoke with patient at this time and notified of below. States that he feels about the same as yesterday with maybe a slight improvement. He reports that alcohol intake has been very limited given how he has been feeling. Vanessa Aquino LPN [facility] 01-19-2025 Telephone encounter Note ----- Message from Erum Castaneda PA-C sent at 01/19/2025 10:30 AM EDT ----- ----- Message ----- From: Lab, Background User Sent: 01/18/2025 6:28 PM EDT To: Erum Castaneda PA-C [facility] 01-19-2025 Telephone encounter Note Let patient know that his sodium level is quite low and his creatinine is slightly elevated. His choloride is also low. With how he was feeling yesterday I am concerned by these numbers and may need to send him to ER. How much alcohol has he been drinking currently? How does he feel today compared to yesterday. rEum Castaneda PA-C [facility] 01-18-2025 History of Presen t illness Narrative Radiology Service Progress Note PATIENT NAME: Yaritza Henderson DATE OF SERVICE: January 18, 2025 TIME: 11:05 AM PATIENT IDENTITY VERIFICATION COMPLETED USING TWO (2) IDENTIFIERS: Name and Date of confirmed by patient verbally. FALL SCREENING: Has the patient had 2 falls in the last year or 1 fall with injury or currently using an Ambulatory Assistive Device (Walker, Cane, Wheelchair, Crutches, etc.)? Yes, Patient High Risk for Falls What interventions were put in place to prevent falls during this visit? Increased Observations by Caregivers PATIENT GENDER DATA: Assigned male at PATIENT RELEVANT IMPLANT DATA REVIEWED: Not Applicable PATIENT PRESENTS WITH AN IMPLANTABLE OR ATTACHED HEEL LAYER: No RADIOLOGY DEPARTMENT: General X-ray: Exam(s) Completed: Rib X-Ray: Right PERIPHERAL IV DATA: Not applicable SIGNED BY: RT Natalie(R) January 18, 2025 11:05 AM documented in this encounter [facility] 01-18-2025 Note HNO ID: [id number] Author: MAUREEN TAYLOR RT(R) Service: ? Author Type: Technologist Type: Progress Notes Filed: 01/18/2025 11:14 Note Text: Radiology Service Progress Note PATIENT NAME: Yaritza Henderson DATE OF SERVICE: January 18, 2025 TIME: 11:05 AM PATIENT IDENTITY VERIFICATION COMPLETED USING TWO (2) IDENTIFIERS: Name and Date of confirmed by patient verbally. FALL SCREENING: Has the patient had 2 falls in the last year or 1 fall with injury or currently using an Ambulatory Assistive Device (Walker, Cane, Wheelchair, Crutches, etc.)? Yes, Patient High Risk for Falls What interventions were put in place to prevent falls during this visit? Increased Observations by Caregivers PATIENT GENDER DATA: Assigned male at PATIENT RELEVANT IMPLANT DATA REVIEWED: Not Applicable PATIENT PRESENTS WITH AN IMPLANTABLE OR ATTACHED HEEL LAYER: No RADIOLOGY DEPARTMENT: General X-ray: Exam(s) Completed: Rib X-Ray: Right PERIPHERAL IV DATA: Not applicable SIGNED BY: RT Natalie(R) January 18, 2025 11:05 AM [facility] 01-18-2025 Instructions Erum Castaneda PA-C - 01/18/2025 10:17 AM EDT - Reduce your amlodipine from 10 mg to 5 mg once daily; a new prescription has been sent to [facility]. - Reduce your lisinopril from 40 mg to 20 mg once daily; a new prescription has been sent to [facility]. - Monitor your blood pressure at home once a day--or any time you feel lightheaded--record the time and reading, and bring the log to your next visit. - Complete a right-side rib/chest x-ray today at the radiology department out front as directed. - Have blood drawn today - Return in about three weeks for follow-up to review your blood pressure log, x-ray and lab results, and to complete your Medicare wellness exam. documented in this encounter [facility] 01-18-2025 Note HNO ID: [id number] Author: ERUM CASTANEDA PA-C Service: ? Author Type: Physician Traffic Chief Type: Progress Notes Filed: 01/18/2025 10:45 Note Text: Chief Complaint Patient presents with: Dizziness: Patient states has had lightheadedness x 1 month. Pt report that he fell 01/14 in his apartment. Having right rib pain HPI Yaritza Henderson is a 69 year old male who presents here today for Above Complaints.. Patient was scheduled for medicare wellness however had recent fall and has had some lightheadedness. Lightheadedness: - Recurrent lightheadedness over the past month. - Intermittent home BP monitoring; unable to determine abnormalities. - Recent BP adjustments made in May or July. - Initial office BP readin/56 mmHg. Fall: - Recent fall on 01/14, attributed to lightheadedness. - No recollection of tripping; denies LOC. - Landed on right side, resulting in abrasions to elbows and rib pain. - No head trauma. - Elbow abrasions cleaned with peroxide; minimal pain reported. - Rib pain localized to the right side, with a bruise noted by son-in-law. - Denies abdominal pain, bloating, shoulder pain, or hip pain. Past medical history, appointments, medications, allergies reviewed. Previous Medical History PAST MEDICAL HISTORY Diagnosis Date Advance directive discussed with patient 11/19/2021 Discussed 10/2021 Alcohol abuse 04/25/2018 Alcohol abuse 04/25/2018 12 pck per day since around 2014 (maybe longer) Benign prostatic hyperplasia without lower urinary tract symptoms 08/01/2019 Closed displaced fracture of seventh cervical vertebra with routine healing 07/06/2022 Closed fracture of first thoracic vertebra with routine healing 07/17/2022 Closed fracture of spinous process of cervical vertebra (HCC) 07/06/2022 Elevated alkaline phosphatase level 06/16/2021 Alcoholic liver disease Elevated LFTs 04/25/2018 Ex-smoker 04/25/2018 Started at 7 yo, 1/2-1 PPD and quit at age 19 Ex-smoker 04/25/2018 Started at 7 yo, 1/2-1 PPD and quit at age 19 Fatty liver, alcoholic 05/08/2018 History of right shoulder fracture Hypertension, essential 02/07/2018 Hyponatremia 06/08/2022 Seeing nephrology- Dr. Garvin Medicare annual wellness visit, subsequent 08/01/2019 :Medicare Part B: 09/28/2018 Last done: 08/01/2019 PVD (peripheral vascular disease) 01/01/2023 LLE, CT 12/2022 Spinal stenosis in cervical region 07/17/2022 Subluxation of c6/C7 cervical vertebrae, initial encounter 07/06/2022 Tibia/fibula fracture Previous Surgical History PAST SURGICAL HISTORY Procedure Laterality Date 2D ECHO (EXEP) 06/21/2020 EF=60%, mild menchaca dysf, 1+ [place] COLONOSCOPY 01/09/2019 Dr. Gonzalez, repeat 10 yrs REMV CATARACT EXTRACAP,INSERT LENS Bilateral Summer/fall of 2021 Family History FAMILY HISTORY Problem Relation Age of Onset No Known Problems Mother when patient was 8 from accident No Known Problems Father No Known Problems Sister unsure of hx No Known Problems Brother doens't know hx No Known Problems Maternal Grandmother doesn't know hx No Known Problems Maternal Grandfather doesn't know hx No Known Problems Paternal Grandmother doesn't know hx No Known Problems Paternal Grandfather doesn't know hx Alzheimer's Disease No Family History Colon Cancer No Family History Prostate Cancer No Family History Coronary Artery Disease No Family History Diabetes No Family History Hypertension No Family History Hyperlipidemia No Family History Kidney Disease No Family History Seizures No Family History Stroke No Family History Thyroid No Family History Patient Allergies ALLERGIES No Known Allergies Current Medications Current Outpatient Medications on File Prior to Visit Medication Sig amLODIPine (NORVASC) 10 mg tablet Take 1 tablet by mouth once daily. cyanocobalamin (VITAMIN B-12) 500 mcg tablet Take 1 tablet by mouth once daily. thiamine (VITAMIN B1) 50 mg tablet Take 1 tablet by mouth once daily. lisinopril (ZESTRIL) 40 mg tablet Take 1 tablet by mouth once daily. folic acid 400 mcg tablet Take 1 tablet by mouth once daily. acetaminophen (TYLENOL EXTRA STRENGTH) 500 mg tablet Take 2 tablets by mouth every 8 hours as needed for pain (for pain.). Blood Pressure Monitor kit Take blood pressure daily DX: hypertension acetaminophen (TYLENOL) 325 mg tablet Take 3 tablets by mouth every 6 hours as needed for pain. (Patient not taking: Reported on 07/10/2024) COMPOUNDED PRESCRIPTION Take blood pressure daily and write it down No current facility-administered medications on file prior to visit. Social History SOCIAL HISTORY[1] Review of Symptoms REVIEW OF SYSTEMS Neurological: (+) lightheadedness, (-) syncope Musculoskeletal: (+) right rib pain, (-) elbow pain, (-) hip pain, (-) shoulder pain Gastrointestinal: (-) abdominal pain, (-) abdominal bloating Skin: (+) elbow abrasions, (+) right hip bruise SEE HPI EXAM: BP 83/56 ( (more content not included)... [facility] 01-18-2025 History of Presen t illness Narrative Chief Complaint Patient presents with: Dizziness: Patient states has had lightheadedness x 1 month. Pt report that he fell 01/14 in his apartment. Having right rib pain HPI Yaritza Henderson is a 69 year old male who presents here today for Above Complaints.. Patient was scheduled for medicare wellness however had recent fall and has had some lightheadedness. Lightheadedness: - Recurrent lightheadedness over the past month. - Intermittent home BP monitoring; unable to determine abnormalities. - Recent BP adjustments made in May or July. - Initial office BP readin/56 mmHg. Fall: - Recent fall on 01/14, attributed to lightheadedness. - No recollection of tripping; denies LOC. - Landed on right side, resulting in abrasions to elbows and rib pain. - No head trauma. - Elbow abrasions cleaned with peroxide; minimal pain reported. - Rib pain localized to the right side, with a bruise noted by son-in-law. - Denies abdominal pain, bloating, shoulder pain, or hip pain. Past medical history, appointments, medications, allergies reviewed. Previous Medical History PAST MEDICAL HISTORY Diagnosis Date Advance directive discussed with patient 11/19/2021 Discussed 10/2021 Alcohol abuse 04/25/2018 Alcohol abuse 04/25/2018 12 pck per day since around 2015 (maybe longer) Benign prostatic hyperplasia without lower urinary tract symptoms 08/01/2019 Closed displaced fracture of seventh cervical vertebra with routine healing 07/06/2022 Closed fracture of first thoracic vertebra with routine healing 07/17/2022 Closed fracture of spinous process of cervical vertebra (HCC) 07/06/2022 Elevated alkaline phosphatase level 06/16/2021 Alcoholic liver disease Elevated LFTs 04/25/2018 Ex-smoker 04/25/2018 Started at 7 yo, 1/2-1 PPD and quit at age 19 Ex-smoker 04/25/2018 Started at 7 yo, 1/2-1 PPD and quit at age 19 Fatty liver, alcoholic 05/08/2018 History of right shoulder fracture Hypertension, essential 02/07/2018 Hyponatremia 06/08/2022 Seeing nephrology- Dr. Garvin Medicare annual wellness visit, subsequent 08/01/2019 :Medicare Part B: 09/28/2018 Last done: 08/01/2019 PVD (peripheral vascular disease) 01/01/2023 LLE, CT 12/2022 Spinal stenosis in cervical region 07/17/2022 Subluxation of c6/C7 cervical vertebrae, initial encounter 07/06/2022 Tibia/fibula fracture Previous Surgical History PAST SURGICAL HISTORY Procedure Laterality Date 2D ECHO (EXEP) 06/21/2020 EF=60%, mild menchaca dysf, 1+ [place] COLONOSCOPY 01/09/2019 Dr. Gonzalez, repeat 10 yrs REMV CATARACT EXTRACAP,INSERT LENS Bilateral Summer/fall of 2021 Family History FAMILY HISTORY Problem Relation Age of Onset No Known Problems Mother when patient was 8 from accident No Known Problems Father No Known Problems Sister unsure of hx No Known Problems Brother doens't know hx No Known Problems Maternal Grandmother doesn't know hx No Known Problems Maternal Grandfather doesn't know hx No Known Problems Paternal Grandmother doesn't know hx No Known Problems Paternal Grandfather doesn't know hx Alzheimer's Disease No Family History Colon Cancer No Family History Prostate Cancer No Family History Coronary Artery Disease No Family History Diabetes No Family History Hypertension No Family History Hyperlipidemia No Family History Kidney Disease No Family History Seizures No Family History Stroke No Family History Thyroid No Family History Patient Allergies ALLERGIES No Known Allergies Current Medications Current Outpatient Medications on File Prior to Visit Medication Sig amLODIPine (NORVASC) 10 mg tablet Take 1 tablet by mouth once daily. cyanocobalamin (VITAMIN B-12) 500 mcg tablet Take 1 tablet by mouth once daily. thiamine (VITAMIN B1) 50 mg tablet Take 1 tablet by mouth once daily. lisinopril (ZESTRIL) 40 mg tablet Take 1 tablet by mouth once daily. folic acid 400 mcg tablet Take 1 tablet by mouth once daily. acetaminophen (TYLENOL EXTRA STRENGTH) 500 mg tablet Take 2 tablets by mouth every 8 hours as needed for pain (for pain.). Blood Pressure Monitor kit Take blood pressure daily DX: hypertension acetaminophen (TYLENOL) 325 mg tablet Take 3 tablets by mouth every 6 hours as needed for pain. (Patient not taking: Reported on 07/10/2024) COMPOUNDED PRESCRIPTION Take blood pressure daily and write it down No current facility-administered medications on file prior to visit. Social History SOCIAL HISTORY[1] Review of Symptoms REVIEW OF SYSTEMS Neurological: (+) lightheadedness, (-) syncope Musculoskeletal: (+) right rib pain, (-) elbow pain, (-) hip pain, (-) shoulder pain Gastrointestinal: (-) abdominal pain, (-) abdominal bloating Skin: (+) elbow abrasions, (+) right hip bruise SEE HPI EXAM: BP 83/56 (BP Site: Right Arm, BP Position: Sitting, BP Cuff Size: Regular Adult) Pulse 80 Temp 36.2 C (97.2 F) Resp 16 Ht 177 cm (5' 9.69) Wt 72.6 kg (160 lb) SpO2 97% BMI 23.17 kg/m General Appearance: Well appearing, alert, in no acute distress, well-hydrated, well nourished.. Neck: Supple, no adenopathy; thyroid symmetric, normal size, no bruits. Lungs: Lungs clear to auscultation. No wheezing, rhonchi, rales.. Heart: RRR without murmur, gallop, or rubs. No ectopy. Abdomen: Normal abdominal exam, Abdomen soft, non-tender. Bowel sounds normal. No masses, organomegaly. Chest Wall: Tenderness noted on the right side from mid to lower ribs. No pain on palpation of the sternum or back. No visible bruising on ribs. MSK: bruise noted on right hip. Nontender. Health Maintenance List Advance Directive Discussion due on 05/31/2024 Medicare Advantage Annual Wellness Visit due on 05/31/2024 Depression Screening due on 12/26/2024 Anxiety Screening due on 12/26/2024 Annual PCP Team Chronic Disease Visit due on 01/18/2026 Diabetes Screening due on 06/21/2027 DTaP,Tdap,Td Vaccine(2 - Td or Tdap) due on 02/05/2028 RSV Vaccine(1 - 1-dose 75+ series) due on 2028 Lipid Screening due on 12/26/2028 Colorectal Cancer Screening due on 01/09/2029 Abdominal Aortic Aneurysm Screening Completed Hepatitis C Screening Completed Influenza Vaccine Discontinued Shingrix Vaccine Discontinued Pneumococcal Vaccine: 50+ Discontinued Data reviewed 01/18/25 0938 01/18/25 0954 01/18/25 0955 01/18/25 0956 BP: 83/56 Pulse: 80 Temp: 36.2 C (97.2 F) Resp: 16 SpO2: 97% Height: 177 cm (5' 9.69) Weight: 72.6 kg (160 lb) Orthostatic BP: 113/76 81/59 83/59 BP Position: Sitting Supine Standing Standing Orthostatic Pulse: 82 90 90 Assessment and Plan 1. Orthostatic hypotension (I95.1) 2. Hypertension, essential (I10) - Orthostatic hypotension with significant BP drop from 113/76 (supine) to 81/59 (standing); initial office BP 83/56. - Reduce amlodipine from 10 mg to 5 mg daily and lisinopril from 40 mg to 20 mg daily; new 30-day prescriptions sent. - Educated on home BP monitoring: check once daily or when symptomatic, record time and readings, and bring log to next visit. - Advised to contact clinic if home BP readings consistently exceed 150/100mmHg. - Discussed risks of over-adjustment and rationale for prioritizing fall prevention; patient expressed understanding and agreement. - Follow-up in 3 weeks to reassess BP and medication adjustments. 3. Fall, initial encounter (W19.XXXA) 4. Rib pain (R07.81) 5. Contusion of right elbow, initial encounter (S50.01XA) - Fall on January 14 attributed to lightheadedness; no head trauma or loss of consciousness. - Right-sided rib pain without respiratory distress; right elbow abrasions noted. - Order X-ray of right ribs and chest to rule out fracture. - Symptomatic management for rib pain. 6. Hyponatremia (E87.1) await labs 7. Alcohol abuse (F10.10) 8. Fatty liver, alcoholic (K70.0) - Order liver panel, platelet count, and hepatitis serologies. 9. Folate deficiency (E53.8) await labs 10. Prostate disorder (N42.9) await labs 11. Anemia, unspecified type (D64.9) await labs Erum Castaneda PA-C Recording using [employer] software for draft documentation of the visit was discussed with the patient/authorized patient care representative; all questions welcomed and answered. Patient/authorized patient care representative agreed to proceed [1] Social History Tobacco Use Smoking status: Former Smokeless tobacco: Never Tobacco comments: quit when he was 19 Vaping Use Vaping status: Never Used Substance Use Topics Alcohol use: Yes Alcohol/week: 105.0 standard drinks of alcohol Types: 63 Standard drinks or equivalent, 42 Cans of Beer (12oz) per week Comment: 6 beers a day Drug use: No documented in this encounter [facility] 11-06-2024 Telephone encounter Note Patient has been identified by name and date of : yes Patient phones for refill(s): Requested Prescriptions Pending Prescriptions Disp Refills amLODIPine (NORVASC) 10 mg tablet 30 tablet 5 Sig: Take 1 tablet by mouth once daily. Date of last office visit in primary care: 07/10/24 Date of next office visit in primary care: 01/09/25 Please advise. Thank you. Jannet Wilder MA. [facility] 11-06-2024 Miscellaneous Notes Patient has been identified by name and date of : yes Patient phones for refill(s): Requested Prescriptions Pending Prescriptions Disp Refills amLODIPine (NORVASC) 10 mg tablet 30 tablet 5 Sig: Take 1 tablet by mouth once daily. Date of last office visit in primary care: 07/10/24 Date of next office visit in primary care: 01/09/25 Please advise. Thank you. Jannet Wilder MA. Prescription Refill Information The patient has been identified by name and date of : Yes Caregiver verified no other encounters exist for this prescription request: Yes Caregiver confirmed with patient/requestor that no other refills are due, in the near future, with this provider at this time: Yes The last office visit in the department: 07/10/2024 Does the patient have a future office visit with this provider/department: Yes Requested Prescriptions Pending Prescriptions Disp Refills amLODIPine (NORVASC) 10 mg tablet 30 tablet 5 Sig: Take 1 tablet by mouth once daily. Neha Warren November 06, 2024 1:14 PM documented in this encounter [facility] 11-06-2024 Telephone encounter Note Prescription Refill Information The patient has been identified by name and date of : Yes Caregiver verified no other encounters exist for this prescription request: Yes Caregiver confirmed with patient/requestor that no other refills are due, in the near future, with this provider at this time: Yes The last office visit in the department: 07/10/2024 Does the patient have a future office visit with this provider/department: Yes Requested Prescriptions Pending Prescriptions Disp Refills amLODIPine (NORVASC) 10 mg tablet 30 tablet 5 Sig: Take 1 tablet by mouth once daily. Neha Warren November 06, 2024 1:14 PM [facility] 10-06-2024 Telephone encounter Note The following approved medication requests have been transmitted electronically. Requested Prescriptions Signed Prescriptions Disp Refills cyanocobalamin (VITAMIN B-12) 500 mcg tablet 30 tablet 11 Sig: Take 1 tablet by mouth once daily. Authorizing Provider: FREDRICK FELICIANO thiamine (VITAMIN B1) 50 mg tablet 30 tablet 11 Sig: Take 1 tablet by mouth once daily. Authorizing Provider: FREDRICK FELICIANO MD [facility] 10-06-2024 Miscellaneous Notes The following approved medication requests have been transmitted electronically. Requested Prescriptions Signed Prescriptions Disp Refills cyanocobalamin (VITAMIN B-12) 500 mcg tablet 30 tablet 11 Sig: Take 1 tablet by mouth once daily. Authorizing Provider: FREDRICK FELICIANO thiamine (VITAMIN B1) 50 mg tablet 30 tablet 11 Sig: Take 1 tablet by mouth once daily. Authorizing Provider: FREDRICK FELICIANO MD Prescription Refill Information The patient has been identified by name and date of : Yes Caregiver verified no other encounters exist for this prescription request: Yes Caregiver confirmed with patient/requestor that no other refills are due, in the near future, with this provider at this time: Yes The last office visit in the department: 07/10/24 Does the patient have a future office visit with this provider/department: Yes Requested Prescriptions Pending Prescriptions Disp Refills cyanocobalamin (VITAMIN B-12) 500 mcg tablet 30 tablet 5 Sig: Take 1 tablet by mouth once daily. thiamine (VITAMIN B1) 50 mg tablet 30 tablet 5 Sig: Take 1 tablet by mouth once daily. Steve Ochoa LPN October 06, 2024 7:02 AM Prescription Refill Information The patient has been identified by name and date of : Yes Caregiver verified no other encounters exist for this prescription request: Yes Caregiver confirmed with patient/requestor that no other refills are due, in the near future, with this provider at this time: Yes The last office visit in the department: 07/10/24 Does the patient have a future office visit with this provider/department: Yes 01/09/25 Requested Prescriptions Pending Prescriptions Disp Refills cyanocobalamin (VITAMIN B-12) 500 mcg tablet 30 tablet 5 Sig: Take 1 tablet by mouth once daily. thiamine (VITAMIN B1) 50 mg tablet 30 tablet 5 Sig: Take 1 tablet by mouth once daily. Dabry Herrera October 05, 2024 1:10 PM documented in this encounter [facility] 10-06-2024 Telephone encounter Note Prescription Refill Information The patient has been identified by name and date of : Yes Caregiver verified no other encounters exist for this prescription request: Yes Caregiver confirmed with patient/requestor that no other refills are due, in the near future, with this provider at this time: Yes The last office visit in the department: 07/10/24 Does the patient have a future office visit with this provider/department: Yes Requested Prescriptions Pending Prescriptions Disp Refills cyanocobalamin (VITAMIN B-12) 500 mcg tablet 30 tablet 5 Sig: Take 1 tablet by mouth once daily. thiamine (VITAMIN B1) 50 mg tablet 30 tablet 5 Sig: Take 1 tablet by mouth once daily. Steve Ochoa LPN October 06, 2024 7:02 AM [facility] 10-05-2024 Telephone encounter Note Prescription Refill Information The patient has been identified by name and date of : Yes Caregiver verified no other encounters exist for this prescription request: Yes Caregiver confirmed with patient/requestor that no other refills are due, in the near future, with this provider at this time: Yes The last office visit in the department: 07/10/24 Does the patient have a future office visit with this provider/department: Yes 01/09/25 Requested Prescriptions Pending Prescriptions Disp Refills cyanocobalamin (VITAMIN B-12) 500 mcg tablet 30 tablet 5 Sig: Take 1 tablet by mouth once daily. thiamine (VITAMIN B1) 50 mg tablet 30 tablet 5 Sig: Take 1 tablet by mouth once daily. Darby Herrera October 05, 2024 1:10 PM [facility] 07-10-2024 Note HNO ID: [id number] Author: ERUM CASTANEDA PA-C Service: ? Author Type: Physician Traffic Chief Type: Progress Notes Filed: 07/10/2024 12:01 Note Text: Chief Complaint Patient presents with: Follow Up: Blood pressure HPI Yaritza Henderson is a 68 year old male who presents here today for Above Complaints.. At last visit we decreased patient's lisinopril from 40mg BID to just every day due to positional lightheadedness. He has noted significant improvement in his lightheadedness. Still has the occasional episode but not nearly as frequent. Past medical history, appointments, medications, allergies reviewed. Previous Medical History PAST MEDICAL HISTORY Diagnosis Date Advance directive discussed with patient 11/19/2021 Discussed 10/2021 Alcohol abuse 04/25/2018 Alcohol abuse 04/25/2018 12 pck per day since around 2014 (maybe longer) Benign prostatic hyperplasia without lower urinary tract symptoms 08/01/2019 Closed displaced fracture of seventh cervical vertebra with routine healing 07/06/2022 Closed fracture of first thoracic vertebra with routine healing 07/17/2022 Closed fracture of spinous process of cervical vertebra (HCC) 07/06/2022 Elevated alkaline phosphatase level 06/16/2021 Alcoholic liver disease Elevated LFTs 04/25/2018 Ex-smoker 04/25/2018 Started at 7 yo, 1/2-1 PPD and quit at age 19 Ex-smoker 04/25/2018 Started at 7 yo, 1/2-1 PPD and quit at age 19 Fatty liver, alcoholic 05/08/2018 History of right shoulder fracture Hypertension, essential 02/07/2018 Hyponatremia 06/08/2022 Seeing nephrology- Dr. Garvin Medicare annual wellness visit, subsequent 08/01/2019 :Medicare Part B: 09/28/2018 Last done: 08/01/2019 PVD (peripheral vascular disease) (HCC) 01/01/2023 LLE, CT 12/2022 Spinal stenosis in cervical region 07/17/2022 Subluxation of c6/C7 cervical vertebrae, initial encounter 07/06/2022 Tibia/fibula fracture Previous Surgical History PAST SURGICAL HISTORY Procedure Laterality Date 2D ECHO (EXEP) 06/21/2020 EF=60%, mild menchaca dysf, 1+ [place] COLONOSCOPY 01/09/2019 Dr. Gonzalez, repeat 10 yrs REMV CATARACT EXTRACAP,INSERT LENS Bilateral Summer/fall of 2021 Family History FAMILY HISTORY Problem Relation Age of Onset No Known Problems Mother when patient was 8 from accident No Known Problems Father No Known Problems Sister unsure of hx No Known Problems Brother doens't know hx No Known Problems Maternal Grandmother doesn't know hx No Known Problems Maternal Grandfather doesn't know hx No Known Problems Paternal Grandmother doesn't know hx No Known Problems Paternal Grandfather doesn't know hx Alzheimer's Disease No Family History Colon Cancer No Family History Prostate Cancer No Family History Coronary Artery Disease No Family History Diabetes No Family History Hypertension No Family History Hyperlipidemia No Family History Kidney Disease No Family History Seizures No Family History Stroke No Family History Thyroid No Family History Patient Allergies ALLERGIES No Known Allergies Current Medications Current Outpatient Medications on File Prior to Visit Medication Sig lisinopril (ZESTRIL) 40 mg tablet Take 1 tablet by mouth once daily. amLODIPine (NORVASC) 10 mg tablet Take 1 tablet by mouth once daily. folic acid 400 mcg tablet Take 1 tablet by mouth once daily. cyanocobalamin (VITAMIN B-12) 500 mcg tablet Take 1 tablet by mouth once daily. thiamine (VITAMIN B1) 50 mg tablet Take 1 tablet by mouth once daily. acetaminophen (TYLENOL EXTRA STRENGTH) 500 mg tablet Take 2 tablets by mouth every 8 hours as needed for pain (for pain.). Blood Pressure Monitor kit Take blood pressure daily DX: hypertension COMPOUNDED PRESCRIPTION Take blood pressure daily and write it down acetaminophen (TYLENOL) 325 mg tablet Take 3 tablets by mouth every 6 hours as needed for pain. (Patient not taking: Reported on 07/10/2024) No current facility-administered medications on file prior to visit. Social History Social History Tobacco Use Smoking status: Former Smokeless tobacco: Never Tobacco comments: quit when he was 19 Vaping Use Vaping status: Never Used Substance Use Topics Alcohol use: Yes Alcohol/week: 105.0 standard drinks of alcohol Types: 63 Standard drinks or equivalent, 42 Cans of Beer (12oz) per week Comment: 6 beers a day Drug use: No Review of Symptoms REVIEW OF SYSTEMS See hp EXAM: BP 124/69 (BP Site: Left Arm, BP Position: Sitting, BP Cuff Size: Regular Adult) Pulse 71 Temp 36.2 ?C (97.1 ?F) Resp 18 Wt 78.5 kg (173 lb) SpO2 98% BMI 25.05 kg/m? General Appearance: Well appearing, alert, in no acute distress, well-hydrated, well nourished.. Health Maintenance List Advance Directive Discussion due on 05/31/2024 Covid-19 Vaccine( season) due on 06/26/2025 Depression Screening due on 12/26/2024 Anxiety Screening due on 12/26/2024 Annual PCP Team Chronic (more content not included)... [facility] 07-10-2024 History of Presen t illness Narrative Chief Complaint Patient presents with: Follow Up: Blood pressure HPI Yaritza Henderson is a 68 year old male who presents here today for Above Complaints.. At last visit we decreased patient's lisinopril from 40mg BID to just every day due to positional lightheadedness. He has noted significant improvement in his lightheadedness. Still has the occasional episode but not nearly as frequent. Past medical history, appointments, medications, allergies reviewed. Previous Medical History PAST MEDICAL HISTORY Diagnosis Date Advance directive discussed with patient 11/19/2021 Discussed 10/2021 Alcohol abuse 04/25/2018 Alcohol abuse 04/25/2018 12 pck per day since around 2015 (maybe longer) Benign prostatic hyperplasia without lower urinary tract symptoms 08/01/2019 Closed displaced fracture of seventh cervical vertebra with routine healing 07/06/2022 Closed fracture of first thoracic vertebra with routine healing 07/17/2022 Closed fracture of spinous process of cervical vertebra (HCC) 07/06/2022 Elevated alkaline phosphatase level 06/16/2021 Alcoholic liver disease Elevated LFTs 04/25/2018 Ex-smoker 04/25/2018 Started at 7 yo, 1/2-1 PPD and quit at age 19 Ex-smoker 04/25/2018 Started at 7 yo, 1/2-1 PPD and quit at age 19 Fatty liver, alcoholic 05/08/2018 History of right shoulder fracture Hypertension, essential 02/07/2018 Hyponatremia 06/08/2022 Seeing nephrology- Dr. Garvin Medicare annual wellness visit, subsequent 08/01/2019 :Medicare Part B: 09/28/2018 Last done: 08/01/2019 PVD (peripheral vascular disease) (HCC) 01/01/2023 LLE, CT 12/2022 Spinal stenosis in cervical region 07/17/2022 Subluxation of c6/C7 cervical vertebrae, initial encounter 07/06/2022 Tibia/fibula fracture Previous Surgical History PAST SURGICAL HISTORY Procedure Laterality Date 2D ECHO (EXEP) 06/21/2020 EF=60%, mild menchaca dysf, 1+ [place] COLONOSCOPY 01/09/2019 Dr. Gonzalez, repeat 10 yrs REMV CATARACT EXTRACAP,INSERT LENS Bilateral Summer/fall of 2021 Family History FAMILY HISTORY Problem Relation Age of Onset No Known Problems Mother when patient was 8 from accident No Known Problems Father No Known Problems Sister unsure of hx No Known Problems Brother doens't know hx No Known Problems Maternal Grandmother doesn't know hx No Known Problems Maternal Grandfather doesn't know hx No Known Problems Paternal Grandmother doesn't know hx No Known Problems Paternal Grandfather doesn't know hx Alzheimer's Disease No Family History Colon Cancer No Family History Prostate Cancer No Family History Coronary Artery Disease No Family History Diabetes No Family History Hypertension No Family History Hyperlipidemia No Family History Kidney Disease No Family History Seizures No Family History Stroke No Family History Thyroid No Family History Patient Allergies ALLERGIES No Known Allergies Current Medications Current Outpatient Medications on File Prior to Visit Medication Sig lisinopril (ZESTRIL) 40 mg tablet Take 1 tablet by mouth once daily. amLODIPine (NORVASC) 10 mg tablet Take 1 tablet by mouth once daily. folic acid 400 mcg tablet Take 1 tablet by mouth once daily. cyanocobalamin (VITAMIN B-12) 500 mcg tablet Take 1 tablet by mouth once daily. thiamine (VITAMIN B1) 50 mg tablet Take 1 tablet by mouth once daily. acetaminophen (TYLENOL EXTRA STRENGTH) 500 mg tablet Take 2 tablets by mouth every 8 hours as needed for pain (for pain.). Blood Pressure Monitor kit Take blood pressure daily DX: hypertension COMPOUNDED PRESCRIPTION Take blood pressure daily and write it down acetaminophen (TYLENOL) 325 mg tablet Take 3 tablets by mouth every 6 hours as needed for pain. (Patient not taking: Reported on 07/10/2024) No current facility-administered medications on file prior to visit. Social History Social History Tobacco Use Smoking status: Former Smokeless tobacco: Never Tobacco comments: quit when he was 19 Vaping Use Vaping status: Never Used Substance Use Topics Alcohol use: Yes Alcohol/week: 105.0 standard drinks of alcohol Types: 63 Standard drinks or equivalent, 42 Cans of Beer (12oz) per week Comment: 6 beers a day Drug use: No Review of Symptoms REVIEW OF SYSTEMS See hp EXAM: BP 124/69 (BP Site: Left Arm, BP Position: Sitting, BP Cuff Size: Regular Adult) Pulse 71 Temp 36.2 C (97.1 F) Resp 18 Wt 78.5 kg (173 lb) SpO2 98% BMI 25.05 kg/m General Appearance: Well appearing, alert, in no acute distress, well-hydrated, well nourished.. Health Maintenance List Advance Directive Discussion due on 05/31/2024 Covid-19 Vaccine() due on 06/26/2025 Depression Screening due on 12/26/2024 Anxiety Screening due on 12/26/2024 Annual PCP Team Chronic Disease Visit due on 06/26/2025 BP Controlled (<130/80) due on 06/26/2025 Diabetes Screening due on 06/21/2027 DTaP,Tdap,Td Vaccine(2 - Td or Tdap) due on 02/05/2028 RSV Vaccine(1 - 1-dose 75+ series) due on 2028 Lipid Screening due on 12/26/2028 Colorectal Cancer Screening due on 01/09/2029 Abdominal Aortic Aneurysm Screening Completed Hepatitis C Screening Completed Influenza Vaccine Discontinued Shingrix Vaccine Discontinued Pneumococcal Vaccine: 50+ Discontinued Data reviewed ASSESSMENT/PLAN: 1. Hypertension, essential - ICD9: 401.9, ICD10: I10 (primary diagnosis) - Controlled - Continue current medications - Recommend home blood pressure monitoring, to bring results to next visit - Encouraged sodium restriction, DASH or Mediterranean diet - Recommend regular aerobic exercise 2. Orthostatic hypotension - ICD9: 458.0, ICD10: I95.1 Improved. Will continue to monitor. If becoming frequent again, will consider another medication adjustment. Follow up for wellness in 6 months. Erum Castaneda PA-C documented in this encounter [facility] 07-06-2024 Telephone encounter Note Katy with [facility] Scheduling called and reports they do not take [employer] insurance. She states he will have to go somewhere else for his liver US and Elastography. Did not know if provider had a place in mind of where she wanted him to go to get it. Please call and advise Pt. [facility] 07-06-2024 Miscellaneous Notes Katy with [facility] Scheduling called and reports they do not take [employer] insurance. She states he will have to go somewhere else for his liver US and Elastography. Did not know if provider had a place in mind of where she wanted him to go to get it. Please call and advise Pt. Pt notified of Erum's message and instructions. Pt verbalizes understanding. Pt aware [facility] will contact him to schedule US if approved by his insurance. Order has been faxed to [facility]. Steve Ochoa LPN Let patient know that his alk phos levels are mostly coming from his liver. I would like to get a specific type of US that checks for fibrosis since the regular US was normal last year.. I will send the order to [facility] to see if they take his insurance. Urine was okay Please give me [facility] US with elastrography order to sign. Thank you! Erum Castaneda PA-C documented in this encounter [facility] 07-06-2024 Telephone encounter Note Pt notified of Erum's message and instructions. Pt verbalizes understanding. Pt aware [facility] will contact him to schedule US if approved by his insurance. Order has been faxed to [facility]. Steve Ochoa LPN [facility] 07-06-2024 Telephone encounter Note Let patient know that his alk phos levels are mostly coming from his liver. I would like to get a specific type of US that checks for fibrosis since the regular US was normal last year.. I will send the order to [facility] to see if they take his insurance. Urine was okay Please give me [facility] US with elastrography order to sign. Thank you! Erum Castaneda PA-C [facility] 06-26-2024 Instructions Erum Castaneda PA-C - 06/26/2024 11:47 AM EST Repeat labs in 1 week. -fasting blood work (10-12 hours). You can have water or black coffee. Decrease lisinopril to just once a day. Recheck in 2-4 weeks documented in this encounter [facility] 06-26-2024 Note HNO ID: [id number] Author: ERUM CASTANEDA PA-C Service: ? Author Type: Physician Traffic Chief Type: Progress Notes Filed: 06/26/2024 12:28 Note Text: Chief Complaint Patient presents with: 6 Month Exam HPI Yaritza Henderson is a 68 year old male who presents here today for Chronic Medical Conditions.. Patient with hx of HTN, anemia, fatty liver (alcoholic), BPH, hx of alcohol abuse and those as below. Patient has noted some lightheadedness with standing. Only for a couple seconds. Has been going on for 6+months. Otherwise, no concerns today. Past medical history, appointments, medications, allergies reviewed. Previous Medical History PAST MEDICAL HISTORY Diagnosis Date Advance directive discussed with patient 11/19/2021 Discussed 10/2021 Alcohol abuse 04/25/2018 Alcohol abuse 04/25/2018 12 pck per day since around 2014 (maybe longer) Benign prostatic hyperplasia without lower urinary tract symptoms 08/01/2019 Closed displaced fracture of seventh cervical vertebra with routine healing 07/06/2022 Closed fracture of first thoracic vertebra with routine healing 07/17/2022 Closed fracture of spinous process of cervical vertebra (HCC) 07/06/2022 Elevated alkaline phosphatase level 06/16/2021 Alcoholic liver disease Elevated LFTs 04/25/2018 Ex-smoker 04/25/2018 Started at 7 yo, 1/2-1 PPD and quit at age 19 Ex-smoker 04/25/2018 Started at 7 yo, 1/2-1 PPD and quit at age 19 Fatty liver, alcoholic 05/08/2018 History of right shoulder fracture Hypertension, essential 02/07/2018 Hyponatremia 06/08/2022 Seeing nephrology- Dr. Garvin Medicare annual wellness visit, subsequent 08/01/2019 :Medicare Part B: 09/28/2018 Last done: 08/01/2019 PVD (peripheral vascular disease) (HCC) 01/01/2023 LLE, CT 12/2022 Spinal stenosis in cervical region 07/17/2022 Subluxation of c6/C7 cervical vertebrae, initial encounter 07/06/2022 Tibia/fibula fracture Previous Surgical History PAST SURGICAL HISTORY Procedure Laterality Date 2D ECHO (EXEP) 06/21/2020 EF=60%, mild menchaca dysf, 1+ [place] COLONOSCOPY 01/09/2019 Dr. Gonzalez, repeat 10 yrs REMV CATARACT EXTRACAP,INSERT LENS Bilateral Summer/fall of 2021 Family History FAMILY HISTORY Problem Relation Age of Onset No Known Problems Mother when patient was 8 from accident No Known Problems Father No Known Problems Sister unsure of hx No Known Problems Brother doens't know hx No Known Problems Maternal Grandmother doesn't know hx No Known Problems Maternal Grandfather doesn't know hx No Known Problems Paternal Grandmother doesn't know hx No Known Problems Paternal Grandfather doesn't know hx Alzheimer's Disease No Family History Colon Cancer No Family History Prostate Cancer No Family History Coronary Artery Disease No Family History Diabetes No Family History Hypertension No Family History Hyperlipidemia No Family History Kidney Disease No Family History Seizures No Family History Stroke No Family History Thyroid No Family History Patient Allergies ALLERGIES No Known Allergies Current Medications Current Outpatient Medications on File Prior to Visit Medication Sig amLODIPine (NORVASC) 10 mg tablet Take 1 tablet by mouth once daily. folic acid 400 mcg tablet Take 1 tablet by mouth once daily. lisinopril (ZESTRIL) 40 mg tablet Take 1 tablet by mouth two times a day. cyanocobalamin (VITAMIN B-12) 500 mcg tablet Take 1 tablet by mouth once daily. thiamine (VITAMIN B1) 50 mg tablet Take 1 tablet by mouth once daily. acetaminophen (TYLENOL EXTRA STRENGTH) 500 mg tablet Take 2 tablets by mouth every 8 hours as needed for pain (for pain.). Blood Pressure Monitor kit Take blood pressure daily DX: hypertension acetaminophen (TYLENOL) 325 mg tablet Take 3 tablets by mouth every 6 hours as needed for pain. (Patient not taking: Reported on 12/27/2023) COMPOUNDED PRESCRIPTION Take blood pressure daily and write it down No current facility-administered medications on file prior to visit. Social History Social History Tobacco Use Smoking status: Former Smokeless tobacco: Never Tobacco comments: quit when he was 19 Vaping Use Vaping status: Never Used Substance Use Topics Alcohol use: Yes Alcohol/week: 105.0 standard drinks of alcohol Types: 63 Standard drinks or equivalent, 42 Cans of Beer (12oz) per week Comment: 6 beers a day Drug use: No Review of Symptoms REVIEW OF SYSTEMS GENERAL: No weight loss, malaise or fevers NECK: Negative for lumps, goiter, pain and significant neck swelling RESPIRATORY: Negative for cough, hemoptysis, wheezing, COPD, dyspnea or shortness of breath CARDIOVASCULAR: See HPI NEURO: No history of headaches, paralysis, seizures or tremors EXAM: BP 122/70 (BP Site: Left Arm, BP Position: Sitting, BP Cuff Size: Regular Adult) Pulse (!) 58 Temp 36.5 ?C (97.7 ?F) Resp 16 Wt 76.2 kg (168 lb) SpO2 100% BMI 24.32 kg/m? General Appearance: Well (more content not included)... [facility] 06-26-2024 History of Presen t illness Narrative Chief Complaint Patient presents with: 6 Month Exam HPI Yaritza Henderson is a 68 year old male who presents here today for Chronic Medical Conditions.. Patient with hx of HTN, anemia, fatty liver (alcoholic), BPH, hx of alcohol abuse and those as below. Patient has noted some lightheadedness with standing. Only for a couple seconds. Has been going on for 6+months. Otherwise, no concerns today. Past medical history, appointments, medications, allergies reviewed. Previous Medical History PAST MEDICAL HISTORY Diagnosis Date Advance directive discussed with patient 11/19/2021 Discussed 10/2021 Alcohol abuse 04/25/2018 Alcohol abuse 04/25/2018 12 pck per day since around 2014 (maybe longer) Benign prostatic hyperplasia without lower urinary tract symptoms 08/01/2019 Closed displaced fracture of seventh cervical vertebra with routine healing 07/06/2022 Closed fracture of first thoracic vertebra with routine healing 07/17/2022 Closed fracture of spinous process of cervical vertebra (HCC) 07/06/2022 Elevated alkaline phosphatase level 06/16/2021 Alcoholic liver disease Elevated LFTs 04/25/2018 Ex-smoker 04/25/2018 Started at 7 yo, 1/2-1 PPD and quit at age 19 Ex-smoker 04/25/2018 Started at 7 yo, 1/2-1 PPD and quit at age 19 Fatty liver, alcoholic 05/08/2018 History of right shoulder fracture Hypertension, essential 02/07/2018 Hyponatremia 06/08/2022 Seeing nephrology- Dr. Garvin Medicare annual wellness visit, subsequent 08/01/2019 :Medicare Part B: 09/28/2018 Last done: 08/01/2019 PVD (peripheral vascular disease) (HCC) 01/01/2023 LLE, CT 12/2022 Spinal stenosis in cervical region 07/17/2022 Subluxation of c6/C7 cervical vertebrae, initial encounter 07/06/2022 Tibia/fibula fracture Previous Surgical History PAST SURGICAL HISTORY Procedure Laterality Date 2D ECHO (EXEP) 06/21/2020 EF=60%, mild menchaca dysf, 1+ [place] COLONOSCOPY 01/09/2019 Dr. Gonzalez, repeat 10 yrs REMV CATARACT EXTRACAP,INSERT LENS Bilateral Summer/fall of 2021 Family History FAMILY HISTORY Problem Relation Age of Onset No Known Problems Mother when patient was 8 from accident No Known Problems Father No Known Problems Sister unsure of hx No Known Problems Brother doens't know hx No Known Problems Maternal Grandmother doesn't know hx No Known Problems Maternal Grandfather doesn't know hx No Known Problems Paternal Grandmother doesn't know hx No Known Problems Paternal Grandfather doesn't know hx Alzheimer's Disease No Family History Colon Cancer No Family History Prostate Cancer No Family History Coronary Artery Disease No Family History Diabetes No Family History Hypertension No Family History Hyperlipidemia No Family History Kidney Disease No Family History Seizures No Family History Stroke No Family History Thyroid No Family History Patient Allergies ALLERGIES No Known Allergies Current Medications Current Outpatient Medications on File Prior to Visit Medication Sig amLODIPine (NORVASC) 10 mg tablet Take 1 tablet by mouth once daily. folic acid 400 mcg tablet Take 1 tablet by mouth once daily. lisinopril (ZESTRIL) 40 mg tablet Take 1 tablet by mouth two times a day. cyanocobalamin (VITAMIN B-12) 500 mcg tablet Take 1 tablet by mouth once daily. thiamine (VITAMIN B1) 50 mg tablet Take 1 tablet by mouth once daily. acetaminophen (TYLENOL EXTRA STRENGTH) 500 mg tablet Take 2 tablets by mouth every 8 hours as needed for pain (for pain.). Blood Pressure Monitor kit Take blood pressure daily DX: hypertension acetaminophen (TYLENOL) 325 mg tablet Take 3 tablets by mouth every 6 hours as needed for pain. (Patient not taking: Reported on 12/27/2023) COMPOUNDED PRESCRIPTION Take blood pressure daily and write it down No current facility-administered medications on file prior to visit. Social History Social History Tobacco Use Smoking status: Former Smokeless tobacco: Never Tobacco comments: quit when he was 19 Vaping Use Vaping status: Never Used Substance Use Topics Alcohol use: Yes Alcohol/week: 105.0 standard drinks of alcohol Types: 63 Standard drinks or equivalent, 42 Cans of Beer (12oz) per week Comment: 6 beers a day Drug use: No Review of Symptoms REVIEW OF SYSTEMS GENERAL: No weight loss, malaise or fevers NECK: Negative for lumps, goiter, pain and significant neck swelling RESPIRATORY: Negative for cough, hemoptysis, wheezing, COPD, dyspnea or shortness of breath CARDIOVASCULAR: See HPI NEURO: No history of headaches, paralysis, seizures or tremors EXAM: BP 122/70 (BP Site: Left Arm, BP Position: Sitting, BP Cuff Size: Regular Adult) Pulse (!) 58 Temp 36.5 C (97.7 F) Resp 16 Wt 76.2 kg (168 lb) SpO2 100% BMI 24.32 kg/m General Appearance: Well appearing, alert, in no acute distress, well-hydrated, well nourished.. Neck: Supple, no adenopathy; thyroid symmetric, normal size, no bruits. Lungs: Lungs clear to auscultation. No wheezing, rhonchi, rales.. Heart: RRR without murmur, gallop, or rubs. No ectopy. Extremities: No deformities, edema, skin discoloration, clubbing or cyanosis. Good capillary refill. . Peripheral Pulses: Normal. Health Maintenance List Advance Directive Discussion due on 05/31/2024 Covid-19 Vaccine() due on 06/26/2025 Annual PCP Team Chronic Disease Visit due on 12/26/2024 Depression Screening due on 12/26/2024 Anxiety Screening due on 12/26/2024 BP Controlled (<130/80) due on 12/26/2024 Diabetes Screening due on 06/21/2027 DTaP,Tdap,Td Vaccine(2 - Td or Tdap) due on 02/05/2028 RSV Vaccine(1 - 1-dose 75+ series) due on 2028 Lipid Screening due on 12/26/2028 Colorectal Cancer Screening due on 01/09/2029 Abdominal Aortic Aneurysm Screening Completed Hepatitis C Screening Completed Influenza Vaccine Discontinued Shingrix Vaccine Discontinued Pneumococcal Vaccine: 50+ Discontinued Data reviewed Latest Ref Rng 06/21/2024 WBC 3.70 - 11.00 k/uL 9.78 RBC 4.20 - 6.00 m/uL 5.37 Hemoglobin 13.0 - 17.0 g/dL 17.3 (H) Hematocrit 39.0 - 51.0 % 50.7 MCV 80.0 - 100.0 fL 94.4 MCH 26.0 - 34.0 pg 32.2 MCHC 30.5 - 36.0 g/dL 34.1 RDW-CV 11.5 - 15.0 % 12.9 Platelet Count 150 - 400 k/uL 311 MPV 9.0 - 12.7 fL 8.0 (L) Neut% % 68.3 Abs Neut (ANC) 1.45 - 7.50 k/uL 6.67 Lymph% % 17.6 Abs Lymph 1.00 - 4.00 k/uL 1.72 Owsley% % 10.8 Abs O[place]ley <0.87 k/uL 1.06 (H) Eosin% % 2.1 Abs Eosin <0.46 k/uL 0.21 Baso% % 0.9 Abs Baso <0.11 k/uL 0.09 Immature Gran % % 0.3 IMMATURE GRANS (ABS) <0.10 k/uL 0.03 NRBC /100 WBC 0.0 Absolute nRBC <0.01 k/uL <0.01 DTYPE Auto Protein, Total 6.3 - 8.0 g/dL 7.5 Albumin 3.9 - 4.9 g/dL 3.6 (L) Calcium 8.5 - 10.2 mg/dL 9.0 Bilirubin, Total 0.2 - 1.3 mg/dL 0.5 Alkaline Phosphatase 38 - 113 U/L 257 (H) AST 14 - 40 U/L 35 ALT 10 - 54 U/L 21 Glucose 74 - 99 mg/dL 103 (H) BUN 9 - 24 mg/dL 6 (L) Creatinine 0.73 - 1.22 mg/dL 1.17 Sodium 136 - 144 mmol/L 131 (L) Potassium 3.7 - 5.1 mmol/L 4.5 Chloride 98 - 107 mmol/L 94 (L) CO2 22 - 30 mmol/L 26 Anion Gap 8 - 15 mmol/L 11 eGFR >=60 mL/min/1.73m 67 PSA <2.60 ng/mL 2.27 PSA, Percent Free % 24 Vitamin B1 (TDP), Whole Blood 84.3 - 213.3 nmol/L 340.9 (H) Vitamin B12 232 - 1,245 pg/mL >2,000 (H) Folate >4.7 ng/mL 18.3 Legend: (H) High (L) Low ASSESSMENT/PLAN: 1. Hypertension, essential - ICD9: 401.9, ICD10: I10 (primary diagnosis) +orthostatic hypotension on exam today - Recommend home blood pressure monitoring, to bring results to next visit - Encouraged sodium restriction, DASH or Mediterranean diet - Recommend regular aerobic exercise - LISINOPRIL 40 MG TABLET 2. PVD (peripheral vascular disease) (HCC) - ICD9: 443.9, ICD10: I73.9 Stable 3. Alcohol abuse - ICD9: 305.00, ICD10: F10.10 4. Hyponatremia - ICD9: 276.1, ICD10: E87.1 stable 5. Orthostatic hypotension - ICD9: 458.0, ICD10: I95.1 Decrease lisinopril to just once a day Recheck in 2 weeks 6. Alkaline phosphatase elevation - ICD9: 790.5, ICD10: R74.8 Recheck in 1 week. - ALK PHOS ISOENZYM BL - GGT - COMPLETE BLOOD COUNT AND DIFFERENTIAL Erum Castaneda PA-C documented in this encounter [facility] 05-02-2024 Telephone encounter Note The following approved medication requests have been transmitted electronically. Requested Prescriptions Signed Prescriptions Disp Refills amLODIPine (NORVASC) 10 mg tablet 30 tablet 5 Sig: Take 1 tablet by mouth once daily. Authorizing Provider: FREDRICK FELICIANO folic acid 400 mcg tablet 30 tablet 5 Sig: Take 1 tablet by mouth once daily. Authorizing Provider: FREDRICK FELICIANO lisinopril (ZESTRIL) 40 mg tablet 60 tablet 5 Sig: Take 1 tablet by mouth two times a day. Authorizing Provider: FREDRICK FELICIANO MD [facility] 05-02-2024 Miscellaneous Notes The following approved medication requests have been transmitted electronically. Requested Prescriptions Signed Prescriptions Disp Refills amLODIPine (NORVASC) 10 mg tablet 30 tablet 5 Sig: Take 1 tablet by mouth once daily. Authorizing Provider: FREDRICK FELICIANO folic acid 400 mcg tablet 30 tablet 5 Sig: Take 1 tablet by mouth once daily. Authorizing Provider: FREDRICK FELICIANO lisinopril (ZESTRIL) 40 mg tablet 60 tablet 5 Sig: Take 1 tablet by mouth two times a day. Authorizing Provider: FREDRICK FELICIANO MD The patient has been identified by name and date of : Yes Caregiver verified no other encounters exist for this prescription request: Yes Caregiver confirmed with patient/requestor that no other refills are due, in the near future, with this provider at this time: Yes The last office visit in the department: 12/27/2023 Does the patient have a future office visit with this provider/department: Yes 06/26/24. Requested Prescriptions Pending Prescriptions Disp Refills amLODIPine (NORVASC) 10 mg tablet 30 tablet 5 Sig: Take 1 tablet by mouth once daily. folic acid 400 mcg tablet 30 tablet 5 Sig: Take 1 tablet by mouth once daily. lisinopril (ZESTRIL) 40 mg tablet 60 tablet 5 Sig: Take 1 tablet by mouth two times a day. Aylin Dubois LPN May 02, 2024 2:58 PM documented in this encounter [facility] 05-02-2024 Telephone encounter Note The patient has been identified by name and date of : Yes Caregiver verified no other encounters exist for this prescription request: Yes Caregiver confirmed with patient/requestor that no other refills are due, in the near future, with this provider at this time: Yes The last office visit in the department: 12/27/2023 Does the patient have a future office visit with this provider/department: Yes 06/26/24. Requested Prescriptions Pending Prescriptions Disp Refills amLODIPine (NORVASC) 10 mg tablet 30 tablet 5 Sig: Take 1 tablet by mouth once daily. folic acid 400 mcg tablet 30 tablet 5 Sig: Take 1 tablet by mouth once daily. lisinopril (ZESTRIL) 40 mg tablet 60 tablet 5 Sig: Take 1 tablet by mouth two times a day. Aylin Dubois LPN May 02, 2024 2:58 PM [facility] 02-29-2024 Telephone encounter Note Spoke with pt and reviewed Erum's message. Pt verbalizes understanding. Steve Ochoa LPN [facility] 02-29-2024 Miscellaneous Notes Spoke with pt and reviewed Erum's message. Pt verbalizes understanding. Steve Ochoa LPN Remind him of the PSA to do in early march I also placed labs for May's visit. Thanks. respirations Patients next routine follow up is in May. Any labs prior to visit? Nadia Leyva MA Pt called in thinking he needs to have routine lab work. Please advise and call patient regarding. Thank you documented in this encounter [facility] 02-29-2024 Telephone encounter Note Remind him of the PSA to do in early march I also placed labs for May's visit. Thanks. respirations [facility] 02-29-2024 Telephone encounter Note Patients next routine follow up is in May. Any labs prior to visit? Nadia Leyva MA [facility] 02-29-2024 Telephone encounter Note Pt called in thinking he needs to have routine lab work. Please advise and call patient regarding. Thank you [facility] 02-07-2024 Telephone encounter Note Pt notified of Erum's message and instructions, pt verbalizes understanding. Steve Ochoa LPN [facility] 02-07-2024 Miscellaneous Notes Pt notified of Erum's message and instructions, pt verbalizes understanding. Steve Ochoa LPN I will send in lower dose of the b12 that he can take daily. He can go back to taking the b1 daily. The reason I suggested every other day was because his levels are high. Toxicity with these vitamins are very rare and He's just peeing out the excess. If he's okay with taking more than he may need, that is fine. Thanks Erum Castaneda PA-C Pt notified of same, verbalizes understanding. Pt advises he had previously been told to Take his vitamin B12 and B1 every other day. States it is getting confusing doing this. Questions if he can go back to once a day whch was his previous dosage. Pt advises he will come in towards the end of the month to recheck prostate labs. Steve Ochoa LPN Let patient know that alk phos level is still elevated but mitochondrial antibody is negative. We will continue to monitor. Erum Castaneda PA-C documented in this encounter [facility] 02-07-2024 Telephone encounter Note I will send in lower dose of the b12 that he can take daily. He can go back to taking the b1 daily. The reason I suggested every other day was because his levels are high. Toxicity with these vitamins are very rare and He's just peeing out the excess. If he's okay with taking more than he may need, that is fine. Thanks Erum Castaneda PA-C [facility] 02-07-2024 Telephone encounter Note Pt notified of same, verbalizes understanding. Pt advises he had previously been told to Take his vitamin B12 and B1 every other day. States it is getting confusing doing this. Questions if he can go back to once a day whch was his previous dosage. Pt advises he will come in towards the end of the month to recheck prostate labs. Steve Ochoa LPN [facility] 02-07-2024 Telephone encounter Note Let patient know that alk phos level is still elevated but mitochondrial antibody is negative. We will continue to monitor. Erum Castaneda PA-C [facility] 01-14-2024 Telephone encounter Note Patient notified of results and provider's instructions. Patient verbalizes understanding. Steve Ochoa LPN [facility] 01-14-2024 Miscellaneous Notes Patient notified of results and provider's instructions. Patient verbalizes understanding. Steve Ochoa LPN US of the liver is okay. Will check fasting labs again in 1 month to trend. Erum Castaneda PA-C documented in this encounter [facility] 01-14-2024 Telephone encounter Note US of the liver is okay. Will check fasting labs again in 1 month to trend. Erum Castaneda PA-C [facility] 01-13-2024 History of Presen t illness Narrative Radiology Service Progress Note PATIENT NAME: Yaritza Henderson DATE OF SERVICE: January 13, 2024 TIME: 11:04 AM PATIENT IDENTITY VERIFICATION COMPLETED USING TWO (2) IDENTIFIERS: Name and Date of confirmed by patient verbally. FALL SCREENING: Has the patient had 2 falls in the last year or 1 fall with injury or currently using an Ambulatory Assistive Device (Walker, Cane, Wheelchair, Crutches, etc.)? No PATIENT GENDER DATA: Male PATIENT RELEVANT IMPLANT DATA REVIEWED: Not Applicable PATIENT PRESENTS WITH AN IMPLANTABLE OR ATTACHED HEEL LAYER: No RADIOLOGY DEPARTMENT: Ultrasound PERIPHERAL IV DATA: Not applicable SIGNED BY: Dottie Machado RDMS January 13, 2024 11:04 AM documented in this encounter [facility] 01-06-2024 Telephone encounter Note Noted. Erum Castaneda PA-C [facility] 01-06-2024 Miscellaneous Notes Noted. Erum Castaneda PA-C Pt notified of results and instructions. Pt would just like to monitor PSA level for now. Will repeat lab as instructed. Pt will call back to schedule US as he has to be somewhere this am and didn't not have time to schedule now. Steve Ochoa LPN Let patient know that PSA %free is at 19 which is borderline low. 2 options. We monitor with repeat in 3-6 months. Or we consult urology now? Total Alk phos level is better. But does have elevated liver portion. Likely related to fatty liver. His GGT was normal. I would like an updated US of liver to make sure no new issues. But otherwise I suggest related to fatty liver and his alcohol use. Thanks. Erum Castaneda PA-C documented in this encounter [facility] 01-06-2024 Telephone encounter Note Pt notified of results and instructions. Pt would just like to monitor PSA level for now. Will repeat lab as instructed. Pt will call back to schedule US as he has to be somewhere this am and didn't not have time to schedule now. Steve Ochoa LPN [facility] 01-06-2024 Telephone encounter Note Let patient know that PSA %free is at 19 which is borderline low. 2 options. We monitor with repeat in 3-6 months. Or we consult urology now? Total Alk phos level is better. But does have elevated liver portion. Likely related to fatty liver. His GGT was normal. I would like an updated US of liver to make sure no new issues. But otherwise I suggest related to fatty liver and his alcohol use. Thanks. Erum Castaneda PA-C [facility] 12-30-2023 Telephone encounter Note Patient informed and verbalized understanding. Nadia Leyva MA [facility] 12-30-2023 Miscellaneous Notes Patient informed and verbalized understanding. Nadia Leyva MA Let patient know that his PSA is a little elevated. I want a repeat in 1 month. His vitamin B1 level is a little high. He can decrease b1 supplement to every other day. Same with his b12 vitamin. His alk phos level is elevated. Need additional labs to further eval. I want these fasting 10-12 hrs. Thanks. Erum Castaneda PA-C documented in this encounter [facility] 12-30-2023 Telephone encounter Note Let patient know that his PSA is a little elevated. I want a repeat in 1 month. His vitamin B1 level is a little high. He can decrease b1 supplement to every other day. Same with his b12 vitamin. His alk phos level is elevated. Need additional labs to further eval. I want these fasting 10-12 hrs. Thanks. Erum Castaneda PA-C [facility] 12-27-2023 Instructions Erum Castaneda PA-C - 12/27/2023 9:45 AM EDT Screening schedule The following prevention plan is recommended: Depression Screening Never done Anxiety Screening Never done RSV Vaccine(1 - 1-dose 60+ series) Never done Advance Directive Discussion due on 05/31/2023 WHAT YOU CAN DO TO PREVENT FALLS Many falls can be prevented. By making some changes, you can lower your chances of falling. Four things YOU can do to prevent falls for you* and your caregiver 1. Begin a regular exercise program Exercise is one of the most important ways to lower your chances of falling. It makes you stronger and helps you feel better. Exercises that improve balance and coordination (like Naldo Chi) are the most helpful. Lack of exercise leads to weakness and increases your chances of falling. Ask your doctor or health care provider about the best type of exercise program for you. 2. Have your health care provider review your medicines Have your doctor or pharmacist review all the medicines you take, even [id number] medicines. As you get older, the way medicines work in your body can change. Some medicines, or combinations of medicines, can make you sleepy or dizzy and can cause you to fall. 3. Have your vision checked Have your eyes checked by an eye doctor at least once a year. You may be wearing the wrong glasses or have a condition like glaucoma or cataracts that limits your vision. Poor vision can increase your chances of falling. 4. Make your home safer About half of all falls happen at home. To make your home safer: Remove things you can trip over (like papers, books, clothes, and shoes) from stairs and places where you walk. Remove small throw rugs or use double-sided tape to keep the rugs from slipping. Keep items you use often in cabinets you can reach easily without using a step stool. Have grab bars put in next to your toilet and in the tub or shower. Use non-slip mats in the bathtub and on shower floors. Improve the lighting in your home. As you get older, you need brighter lights to see well. Hang light-weight curtains or shades to reduce glare. Have handrails and lights put in on all staircases. Wear shoes both inside and outside the house. Avoid going barefoot or wearing slippers. For more information, contact: Centers for Disease Control and Prevention www.cdc.gov/injury * This information may not apply if you have certain medical conditions. documented in this encounter [facility] 12-27-2023 History of Presen t illness Narrative Images from the original note were not included. Yaritza Henderson is a 68 year old male here for a Medicare wellness visit. Medicare Health Risk Assessment General Health Good Exercise: Minutes/Day 0 Exercise: Days/Week No but does a lot of walking Alcohol: Daily Use yes Alcohol: Drinks/Day 6 Alcohol: 6 or more drinks Yes daily. Feel off balance no Concerns: Teeth/Dentures no Concerns: Sexual function Troubled by feelings no Frequency: Eating healthy diet sometimes ADLs requiring help no Safety precautions in home/vehicle yes Smoke, vape, chews tobacco no Difficulty hearing no Difficulty seeing no Current Providers Specialists: I have reviewed specialist-related care of the patient in the medical record. Medical/Family history review Reviewed and updated problem list, medical/surgical/family/social history, medications, and allergies. Opioid use review Opioid Medications (last 90 days) No data to display Anxiety/Depression screening PHQ-2 Score: 0 (Lower risk for depression) Recommendation: no further intervention at this time Cognitive screening Mini Cog Score: 5 Cognitive screening reviewed and No further action needed (score 3-5). Functional Observation Was the patient's Timed Up & Go test unsteady or ? 12 seconds? No Advance Care Planning Surrogate decision maker and/or advance care plan documented Measurements BP 118/70 (BP Site: Left Arm, BP Position: Sitting, BP Cuff Size: Regular Adult) Pulse 76 Temp 36.7 C (98 F) Resp 18 Ht 177 cm (5' 9.69) Wt 78.9 kg (174 lb) SpO2 99% BMI 25.19 kg/m Vision Screening: Follows with optometry/ophthalmology Assessment/Plan Medicare annual wellness visit, subsequent (.) - Counseled on healthy diet and regular exercise - Fall avoidance information provided - Personalized prevention plan provided Chief Complaint Patient presents with: Medicare Wellness Exam HPI Yaritza Henderson is a 68 year old male who presents here today for extensive exam. Patient with hx of HTN, anemia, fatty liver (alcoholic), BPH, alcohol abuse and those as below. Patient has growth on left shoulder for years. Has been irritated. Otherwise doing well Past medical history, appointments, medications, allergies reviewed. Previous Medical History PAST MEDICAL HISTORY Diagnosis Date Advance directive discussed with patient 11/19/2021 Discussed 10/2021 Alcohol abuse 04/25/2018 Alcohol abuse 04/25/2018 12 pck per day since around 2015 (maybe longer) Benign prostatic hyperplasia without lower urinary tract symptoms 08/01/2019 Closed displaced fracture of seventh cervical vertebra with routine healing 07/06/2022 Closed fracture of first thoracic vertebra with routine healing 07/17/2022 Closed fracture of spinous process of cervical vertebra (HCC) 07/06/2022 Elevated alkaline phosphatase level 06/16/2021 Alcoholic liver disease Elevated LFTs 04/25/2018 Ex-smoker 04/25/2018 Started at 7 yo, 1/2-1 PPD and quit at age 19 Ex-smoker 04/25/2018 Started at 7 yo, 1/2-1 PPD and quit at age 19 Fatty liver, alcoholic 05/08/2018 History of right shoulder fracture Hypertension, essential 02/07/2018 Hyponatremia 06/08/2022 Seeing nephrology- Dr. Garvin Medicare annual wellness visit, subsequent 08/01/2019 :Medicare Part B: 09/28/2018 Last done: 08/01/2019 PVD (peripheral vascular disease) (HCC) 01/01/2023 LLE, CT 12/2022 Spinal stenosis in cervical region 07/17/2022 Subluxation of c6/C7 cervical vertebrae, initial encounter 07/06/2022 Tibia/fibula fracture Previous Surgical History PAST SURGICAL HISTORY Procedure Laterality Date 2D ECHO (EXEP) 06/21/2020 EF=60%, mild menchaca dysf, 1+ [place] COLONOSCOPY 01/09/2019 Dr. Gonzalez, repeat 10 yrs REMV CATARACT EXTRACAP,INSERT LENS Bilateral Summer/fall of 2021 Family History FAMILY HISTORY Problem Relation Age of Onset No Known Problems Mother when patient was 8 from accident No Known Problems Father No Known Problems Sister unsure of hx No Known Problems Brother doens't know hx No Known Problems Maternal Grandmother doesn't know hx No Known Problems Maternal Grandfather doesn't know hx No Known Problems Paternal Grandmother doesn't know hx No Known Problems Paternal Grandfather doesn't know hx Alzheimer's Disease No Family History Colon Cancer No Family History Prostate Cancer No Family History Coronary Artery Disease No Family History Diabetes No Family History Hypertension No Family History Hyperlipidemia No Family History Kidney Disease No Family History Seizures No Family History Stroke No Family History Thyroid No Family History Patient Allergies ALLERGIES No Known Allergies Current Medications Current Outpatient Medications on File Prior to Visit Medication Sig thiamine (VITAMIN B1) 50 mg tablet take 1 tablet by mouth once daily folic acid 400 mcg tablet take 1 tablet by mouth once daily. amLODIPine (NORVASC) 10 mg tablet take 1 tablet by mouth once daily cyanocobalamin (VITAMIN B-12) 1,000 mcg tab take 1 tablet by mouth once daily. lisinopril (ZESTRIL) 40 mg tablet take 1 tablet by mouth twice daily acetaminophen (TYLENOL EXTRA STRENGTH) 500 mg tablet Take 2 tablets by mouth every 8 hours as needed for pain (for pain.). Blood Pressure Monitor kit Take blood pressure daily DX: hypertension COMPOUNDED PRESCRIPTION Take blood pressure daily and write it down cyclobenzaprine (FLEXERIL) 10 mg tablet Take 1 tablet by mouth three times a day as needed for muscle spasm. (Patient not taking: Reported on 06/23/2023) spironolactone (ALDACTONE) 25 mg tablet Take 25 mg by mouth once daily. (Patient not taking: Reported on 06/23/2023) acetaminophen (TYLENOL) 325 mg tablet Take 3 tablets by mouth every 6 hours as needed for pain. (Patient not taking: Reported on 12/27/2023) No current facility-administered medications on file prior to visit. Social History Social History Tobacco Use Smoking status: Former Smokeless tobacco: Never Tobacco comments: quit when he was 19 Vaping Use Vaping Use: Never used Substance Use Topics Alcohol use: Yes Alcohol/week: 105.0 standard drinks of alcohol Types: 63 Standard drinks or equivalent, 42 Cans of Beer (12oz) per week Comment: 6 beers a day Drug use: No Review of Symptoms REVIEW OF SYSTEMS GENERAL: No weight loss, malaise or fevers HEENT: No changes in hearing or vision, no nose bleeds or other nasal problems NECK: Negative for lumps, goiter, pain and significant neck swelling RESPIRATORY: Negative for cough, hemoptysis, wheezing, COPD, dyspnea or shortness of breath CARDIOVASCULAR: Negative for chest pain, leg swelling, CHF or palpitations GI: Negative for abdominal discomfort, blood in stools or black stools, change in bowel habit, heart burn, nausea, vomiting : No history of dysuria, frequency or incontinence MUSCULOSKELETAL: Negative for joint pain or swelling, back pain or muscle pain SKIN: lesion on left shoulder. Inflammed and irritated PSYCH: Negative for sleep disturbance, mood disorder and recent psychosocial stressors HEMATOLOGY/LYMPHOLOGY: Negative for prolonged bleeding, bruising easily or swollen nodes ENDOCRINE: Negative for cold or heat intolerance, polyuria, polydipsia and goiter NEURO: No history of headaches, syncope, paralysis, seizures or tremors EXAM: BP 118/70 (BP Site: Left Arm, BP Position: Sitting, BP Cuff Size: Regular Adult) Pulse 76 Temp 36.7 C (98 F) Resp 18 Ht 177 cm (5' 9.69) Wt 78.9 kg (174 lb) SpO2 99% BMI 25.19 kg/m General Appearance: Well appearing, alert, in no acute distress, well-hydrated, well nourished.. Skin: 2cm growth on left shoulder. Nontender. Concerning for cancer. Head: Normocephalic, no masses, lesions, tenderness or abnormalities. Eyes: Anicteric sclera. Pupils are equally round and reactive to light. Extraocular movements are intact. . Ears: External ears normal, canals clear. Nose/Sinuses: Nares normal, septum midline, mucosa normal, no drainage or sinus tenderness. Oropharynx: Lips, mucosa, and tongue normal, teeth and gums normal, oropharynx normal. Neck: Supple, no adenopathy; thyroid symmetric, normal size, no bruits. Lungs: Lungs clear to auscultation. No wheezing, rhonchi, rales.. Heart: RRR without murmur, gallop, or rubs. No ectopy. Abdomen: Normal abdominal exam, Abdomen soft, non-tender. Bowel sounds normal. No masses, organomegaly. Extremities: No deformities, edema, skin discoloration, clubbing or cyanosis. Good capillary refill. . Peripheral Pulses: Normal. Neurologic: Gait normal. Reflexes normal and symmetric. Sensation grossly intact.. Health Maintenance List Depression Screening Never done Anxiety Screening Never done RSV Vaccine(1 - 1-dose 60+ series) Never done Advance Directive Discussion due on 05/31/2023 Covid-19 Vaccine( season) due on 12/26/2024 Annual PCP Team Chronic Disease Visit due on 06/23/2024 BP Controlled (<130/80) due on 06/23/2024 Diabetes Screening due on 06/23/2026 Lipid Screening due on 12/17/2027 DTaP,Tdap,Td Vaccine(2 - Td or Tdap) due on 02/05/2028 Colorectal Cancer Screening due on 01/09/2029 Abdominal Aortic Aneurysm Screening Completed Hepatitis C Screening Completed Influenza Vaccine Discontinued Shingrix Vaccine Discontinued Pneumococcal Vaccine: 65+ Discontinued Data reviewed FIB-4 Calculation: 1.24 at 09/29/2023 1:37 PM Calculated from: SGOT/AST: 25 U/L at 06/23/2023 1:53 PM SGPT/ALT: 16 U/L at 06/23/2023 1:53 PM Platelets: 349 k/uL at 09/29/2023 1:37 PM Age: 67 years ASSESSMENT/PLAN: 1. Medicare annual wellness visit, subsequent - ICD9: V70.0, ICD10: Z00.00 (primary diagnosis) - Counseled on healthy diet and regular exercise - Discussed need for and benefit of weight loss. BMI 25.19 kg/(m^2) 2. Screening for depression - ICD9: V79.0, ICD10: Z13.31 - DEPRESSION SCREENING 3. Encounter for screening examination for other mental health and behavioral disorders - ICD9: V79.8, ICD10: Z13.39 - ANXIETY SCREENING 4. Abnormal skin growth - ICD9: 239.2, ICD10: D49.2 Set up for removal with derm - CONSULT TO DERMATOLOGY 5. Alcohol abuse - ICD9: 305.00, ICD10: F10.10 Patient to work on decreasing - VITAMIN B1 (THIAMINE), WHOLE BLOOD - VITAMIN B12 - COMPLETE BLOOD COUNT AND DIFFERENTIAL 6. Hyponatremia - ICD9: 276.1, ICD10: E87.1 Cont with nephrology - COMPREHENSIVE METABOLIC PANEL 7. PVD (peripheral vascular disease) (HCC) - ICD9: 443.9, ICD10: I73.9 stable 8. Hypertension, essential - ICD9: 401.9, ICD10: I10 - Controlled - Continue current medications - Recommend home blood pressure monitoring, to bring results to next visit - Encouraged sodium restriction, DASH or Mediterranean diet - Recommend regular aerobic exercise - LIPID PANEL, NONFASTING - COMPREHENSIVE METABOLIC PANEL 9. Advance directive discussed with patient - ICD9: V65.49, ICD10: Z71.89 10. Prostate disorder - ICD9: 602.9, ICD10: N42.9 - PROSTATE-SPECIFIC ANTIGEN DIAGNOSTIC 11. Folate deficiency - ICD9: 266.2, ICD10: E53.8 - FOLATE, SERUM 12. Fatty liver, alcoholic - ICD9: 571.0, ICD10: K70.0 - COMPLETE BLOOD COUNT AND DIFFERENTIAL Erum Castaneda PA-C documented in this encounter [facility] 10-21-2023 Telephone encounter Note Opened in error [facility] 10-21-2023 Miscellaneous Notes Opened in error documented in this encounter [facility] 10-21-2023 Telephone encounter Note Patient has been identified by name and date of : yes Patient phones for refill(s): Requested Prescriptions Pending Prescriptions Disp Refills thiamine (VITAMIN B1) 50 mg tablet [Pharmacy Med Name: thiamine HCl (vitamin B1) 50 mg tablet] 30 tablet 5 Sig: take 1 tablet by mouth once daily folic acid 400 mcg tablet 30 tablet 5 Sig: take 1 tablet by mouth once daily. amLODIPine (NORVASC) 10 mg tablet [Pharmacy Med Name: amlodipine 10 mg tablet] 30 tablet 5 Sig: take 1 tablet by mouth once daily cyanocobalamin (VITAMIN B-12) 1,000 mcg tab [Pharmacy Med Name: cyanocobalamin (vit B-12) 1,000 mcg tablet] 30 tablet 5 Sig: take 1 tablet by mouth once daily. lisinopril (ZESTRIL) 40 mg tablet [Pharmacy Med Name: lisinopril 40 mg tablet] 60 tablet 5 Sig: take 1 tablet by mouth twice daily Date of last office visit in primary care: 06/23/2023 Date of next office visit in primary care: 12/27/2023 Please advise. Thank you. Jannet Wilder MA. [facility] 10-21-2023 Miscellaneous Notes Patient has been identified by name and date of : yes Patient phones for refill(s): Requested Prescriptions Pending Prescriptions Disp Refills thiamine (VITAMIN B1) 50 mg tablet [Pharmacy Med Name: thiamine HCl (vitamin B1) 50 mg tablet] 30 tablet 5 Sig: take 1 tablet by mouth once daily folic acid 400 mcg tablet 30 tablet 5 Sig: take 1 tablet by mouth once daily. amLODIPine (NORVASC) 10 mg tablet [Pharmacy Med Name: amlodipine 10 mg tablet] 30 tablet 5 Sig: take 1 tablet by mouth once daily cyanocobalamin (VITAMIN B-12) 1,000 mcg tab [Pharmacy Med Name: cyanocobalamin (vit B-12) 1,000 mcg tablet] 30 tablet 5 Sig: take 1 tablet by mouth once daily. lisinopril (ZESTRIL) 40 mg tablet [Pharmacy Med Name: lisinopril 40 mg tablet] 60 tablet 5 Sig: take 1 tablet by mouth twice daily Date of last office visit in primary care: 06/23/2023 Date of next office visit in primary care: 12/27/2023 Please advise. Thank you. Jannet Wilder MA. documented in this encounter [facility] 07-19-2023 History of Presen t illness Narrative POPULATION HEALTH NAVIGATION OUTREACH Action/FYI Spoke with patient and scheduled wellness Appointment reminder mailed Patient Identified by Name and : YES, via phone Outreach Outcome/Action Spoke to patient / parent / legal guardian: Patient scheduled Did you use a PCP flex slot to schedule this appointment? No Reason for Outreach Care Gap or Scheduling/Wellness visits Payer: Payor: [employer] / Plan: [employer] MEDICARE ADVANTAGE HMO / Product Type: HMO / Care Gap Reviewed:: Annual Wellness visit Reminder: Reminder note to check Health Maintenance for items below Health Maintenance items due: RSV Vaccine(1 - 1-dose 60+ series) Never done Advance Directive Discussion due on 05/31/2023 Depression Assessment due on 05/31/2023 Navigation Signature: Maria Teresa Glass Population Health Navigator July 19, 2023 7:29 AM documented in this encounter [facility] 04-07-2023 History of Presen t illness Narrative Radiology Service Progress Note PATIENT NAME: Yaritza Henderson DATE OF SERVICE: April 07, 2023 TIME: 10:40 AM PATIENT IDENTITY VERIFICATION COMPLETED USING TWO (2) IDENTIFIERS: Name and Date of confirmed by patient verbally. FALL SCREENING: Has the patient had 2 falls in the last year or 1 fall with injury or currently using an Ambulatory Assistive Device (Walker, Cane, Wheelchair, Crutches, etc.)? No PATIENT GENDER DATA: Male PATIENT RELEVANT IMPLANT DATA REVIEWED: Not Applicable RADIOLOGY DEPARTMENT: General X-ray: Exam(s) Completed: Spine X-Ray(s): Thoracic and Lumbar AP / LAT / L5-S1 PERIPHERAL IV DATA: Not applicable SIGNED BY: RT Natalie(R) April 07, 2023 10:40 AM documented in this encounter [facility] 04-03-2023 History of Presen t illness Narrative This note was created using Sush.ioriter. Subjective Yaritza Henderson is a 67 year old male. 67 year old male with PMH HTN, PVD, anemia, spinal stenosis presents for lower back pain. Acute onset one week ago Lower back Endorses that he was lifting up an AC unit, [place] a popping sensation. Mid and lower back. Sharp and cramping. Has used Ibuprofen, but no relief. Denies saddle anesthesia, unilateal weakness, inability to urinate or history of IV drug usage. The history is provided by the patient. No foreign language interpreter was used. Back Pain This is a new problem. The current episode started more than 1 week ago. The problem occurs constantly. The problem has not changed since onset.The pain is associated with lifting heavy objects. The pain is present in the thoracic spine and lumbar spine. The quality of the pain is described as cramping and aching. The pain does not radiate. The pain is at a severity of 6/10. The pain is moderate. The symptoms are aggravated by bending, twisting and certain positions. The pain is The same all the time. Stiffness is present All day. Pertinent negatives include no chest pain, no fever, no numbness, no weight loss, no headaches, no abdominal pain, no abdominal swelling, no bowel incontinence, no perianal numbness, no bladder incontinence, no dysuria, no pelvic pain, no leg pain, no paresthesias, no paresis, no tingling and no weakness. He has tried NSAIDs and bed rest for the symptoms. The treatment provided no relief. Risk factors include lack of exercise and poor posture. PAST MEDICAL HISTORY Diagnosis Date Advance directive discussed with patient 11/19/2021 Discussed 10/2021 Alcohol abuse 04/25/2018 Alcohol abuse 04/25/2018 12 pck per day since around 2015 (maybe longer) Benign prostatic hyperplasia without lower urinary tract symptoms 08/01/2019 Closed displaced fracture of seventh cervical vertebra with routine healing 07/06/2022 Closed fracture of first thoracic vertebra with routine healing 07/17/2022 Closed fracture of spinous process of cervical vertebra (HCC) 07/06/2022 Elevated alkaline phosphatase level 06/16/2021 Alcoholic liver disease Elevated LFTs 04/25/2018 Ex-smoker 04/25/2018 Started at 7 yo, 1/2-1 PPD and quit at age 19 Ex-smoker 04/25/2018 Started at 7 yo, 1/2-1 PPD and quit at age 19 Fatty liver, alcoholic 05/08/2018 History of right shoulder fracture Hypertension, essential 02/07/2018 Hyponatremia 06/08/2022 Seeing nephrology- Dr. Garvin Medicare annual wellness visit, subsequent 08/01/2019 :Medicare Part B: 09/28/2018 Last done: 08/01/2019 PVD (peripheral vascular disease) (HCC) 01/01/2023 LLE, CT 12/2022 Spinal stenosis in cervical region 07/17/2022 Subluxation of c6/C7 cervical vertebrae, initial encounter 07/06/2022 Tibia/fibula fracture PAST SURGICAL HISTORY Procedure Laterality Date 2D ECHO (EXEP) 06/21/2020 EF=60%, mild menchaca dysf, 1+ [place] COLONOSCOPY 01/09/2019 Dr. Gonzalez, repeat 10 yrs REMV CATARACT EXTRACAP,INSERT LENS Bilateral Summer/fall of 2021 ALLERGIES Patient has no known allergies. MEDICATIONS thiamine (VITAMIN B-1) 50 mg tablet Take 1 tablet by mouth once daily. folic acid 400 mcg tablet Take 1 tablet by mouth once daily. amLODIPine (NORVASC) 10 mg tablet Take 1 tablet by mouth once daily. lisinopril (ZESTRIL) 40 mg tablet Take 1 tablet by mouth twice daily. cyanocobalamin (VITAMIN B-12) 1,000 mcg tab Take 1 tablet by mouth once daily. spironolactone (ALDACTONE) 25 mg tablet Take 25 mg by mouth once daily. acetaminophen (TYLENOL EXTRA STRENGTH) 500 mg tablet Take 2 tablets by mouth every 8 hours as needed for pain (for pain.). acetaminophen (TYLENOL) 325 mg tablet Take 3 tablets by mouth every 6 hours as needed for pain. Blood Pressure Monitor kit Take blood pressure daily DX: hypertension COMPOUNDED PRESCRIPTION Take blood pressure daily and write it down methylPREDNISolone (MEDROL, MAYKEL,) 4 mg Dose-Pack Follow dosing instructions, take with food. cyclobenzaprine (FLEXERIL) 10 mg tablet Take 1 tablet by mouth three times a day as needed for muscle spasm. FAMILY HISTORY Problem Relation Age of Onset No Known Problems Mother when patient was 8 from accident No Known Problems Father No Known Problems Sister unsure of hx No Known Problems Brother doens't know hx No Known Problems Maternal Grandmother doesn't know hx No Known Problems Maternal Grandfather doesn't know hx No Known Problems Paternal Grandmother doesn't know hx No Known Problems Paternal Grandfather doesn't know hx Alzheimer's Disease No Family History Colon Cancer No Family History Prostate Cancer No Family History Coronary Artery Disease No Family History Diabetes No Family History Hypertension No Family History Hyperlipidemia No Family History Kidney Disease No Family History Seizures No Family History Stroke No Family History Thyroid No Family History Social History Tobacco Use Smoking status: Former Smokeless tobacco: Never Tobacco comments: quit when he was 19 Vaping Use Vaping Use: Never used Substance Use Topics Alcohol use: Yes Alcohol/week: 105.0 standard drinks of alcohol Types: 63 Standard drinks or equivalent, 42 Cans of Beer (12oz) per week Comment: 6 beers a day Drug use: No Review of Systems Constitutional: Negative for activity change, appetite change, chills, fever and weight loss. Eyes: Negative for pain, discharge and itching. Respiratory: Negative for apnea, choking and chest tightness. Cardiovascular: Negative for chest pain, palpitations and leg swelling. Gastrointestinal: Negative for abdominal pain, bowel incontinence, constipation, diarrhea and vomiting. Genitourinary: Negative for bladder incontinence, dysuria and pelvic pain. Musculoskeletal: Positive for back pain. Skin: Negative for color change, pallor and rash. Allergic/Immunologic: Negative for environmental allergies, food allergies and immunocompromised state. Neurological: Negative for tingling, weakness, numbness, headaches and paresthesias. Hematological: Negative for adenopathy. Does not bruise/bleed easily. Psychiatric/Behavioral: Negative for agitation and behavioral problems. Objective BP 142/79 Pulse 72 Temp 36.7 C (98 F) Resp 18 Wt 83.5 kg (184 lb) SpO2 98% BMI 26.40 kg/m Physical Exam Vitals and nursing note reviewed. Constitutional: General: He is not in acute distress. Appearance: Normal appearance. He is not ill-appearing, toxic-appearing or diaphoretic. HENT: Head: Normocephalic and atraumatic. Right Ear: External ear normal. Left Ear: External ear normal. Nose: Nose normal. No congestion or rhinorrhea. Mouth/Throat: Mouth: Mucous membranes are moist. Pharynx: Oropharynx is clear. No oropharyngeal exudate or posterior oropharyngeal erythema. Eyes: General: Right eye: No discharge. Left eye: No discharge. Extraocular Movements: Extraocular movements intact. Conjunctiva/sclera: Conjunctivae normal. Pupils: Pupils are equal, round, and reactive to light. Cardiovascular: Rate and Rhythm: Normal rate and regular rhythm. Pulses: Normal pulses. Heart sounds: Normal heart sounds. No murmur heard. No friction rub. No gallop. Pulmonary: Effort: Pulmonary effort is normal. No respiratory distress. Breath sounds: Normal breath sounds. No stridor. No wheezing, rhonchi or rales. Chest: Chest wall: No tenderness. Abdominal: General: Abdomen is flat. There is no distension. Palpations: Abdomen is soft. There is no mass. Tenderness: There is no abdominal tenderness. There is no guarding or rebound. Hernia: No hernia is present. Musculoskeletal: General: No swelling, tenderness, deformity or signs of injury. Normal range of motion. Cervical back: Normal range of motion and neck supple. No rigidity or tenderness. Right lower leg: No edema. Left lower leg: No edema. Comments: No midline cervical, thoracic, or lumbar TTP No step off No crepitus Ambulatory 5/5 strength Lymphadenopathy: Cervical: No cervical adenopathy. Skin: General: Skin is warm and dry. Capillary Refill: Capillary refill takes less than 2 seconds. Coloration: Skin is not jaundiced or pale. Findings: No bruising, lesion or rash. Neurological: General: No focal deficit present. Mental Status: He is alert and oriented to person, place, and time. Cranial Nerves: No cranial nerve deficit. Sensory: No sensory deficit. Motor: No weakness. Coordination: Coordination normal. Gait: Gait normal. Deep Tendon Reflexes: Reflexes normal. Psychiatric: Mood and Affect: Mood normal. Behavior: Behavior normal. Thought Content: Thought content normal. Assessment and Plan ASSESSMENT/PLAN: 1. Acute bilateral low back pain without sciatica - ICD9: 724.2, 338.19, ICD10: M54.50 Onset one week ago Associated with heavy lifting No red flags - XR THORACIC LIMITED 2V AP/LAT - XR LUMBAR LIMITED 2V AP/LAT No imaging at time of exam, will return RX Flexeril RX Prednisone Follow up with PCP Discussed red flags Karol Hope APRN.BIRGIT documented in this encounter [facility] 03-16-2023 Miscellaneous Notes Patient notified and verbalized understanding Daisy Salter Cma Please let patient know her labs are normal. documented in this encounter [facility] 01-01-2023 Miscellaneous Notes Patient notified of results and provider's instructions. Patient verbalizes understanding. Lizbeth Onofre RN Patient advised will call back in is walking outside. Aware to ask for triage nurse to go over results Jannet Wilder Ma Let patient know CT abd/pelv and into legs did not show any increased pressures in the veins and arteries to the liver. He does have significant narrowing in the arteries in the left lower leg and would like him to see vascular. Order placed. documented in this encounter [facility] 12-31-2022 History of Presen t illness Narrative Radiology Service Progress Note DATE OF SERVICE: December 31, 2022 TIME: 2:14 PM PATIENT IDENTITY VERIFICATION COMPLETED USING TWO (2) STANDARD IDENTIFIERS: Name and Date of confirmed by patient verbally. FALL SCREENING: Has the patient had 2 falls in the last year or 1 fall with injury or currently using an Ambulatory Assistive Device (Walker, Cane, Wheelchair, Crutches, etc.)? No PATIENT GENDER DATA: Male PATIENT RELEVANT IMPLANT DATA REVIEWED: Yes ALLERGIES: Reviewed and unchanged CONTRAST ALLERGY: NO. EXAM: CT -CONTRAST INDUCED NEPHROPATHY RISK FACTORS: Patient age > 60 years CREATININE: Creatinine Date Value Ref Range Status 12/16/2022 1.15 0.73 - 1.22 mg/dL Final 09/16/2022 1.18 0.73 - 1.22 mg/dL Final 07/16/2022 1.53 (H) 0.73 - 1.22 mg/dL Final Estimated Glomerular Filtration Rate Date Value Ref Range Status 12/16/2022 69 >=60 mL/min/1.73m Final Comment: Estimated Glomerular Filtration Rate (eGFR) is calculated using the 2020 CKD-EPI creatinine equation. This equation utilizes serum creatinine, sex, and age as parameters. The creatinine assay has traceable calibration to isotope dilution-mass spectrometry. Refer to KDIGO guidelines for clinical interpretation. In patients with unstable renal function, e.g. those with acute kidney injury, the eGFR may not accurately reflect actual GFR. eGFR- Date Value Ref Range Status 06/03/2021 >60 Final P.O.C.T. RESULTS: POC done: Yes, See Lab Tab December 31, 2022 TREATMENT: N/A PERIPHERAL IV DATA: Ambulatory: A peripheral IV was started in the Left antecubital site with a Angio cath: 18 gauge. RADIOLOGY DEPARTMENT: CT; Exam(s) Completed: CTA Aorta/leg runoff SIGNATURE: RT Luisa(R) PATIENT NAME: Yaritza Henderson DATE: December 31, 2022 TIME: 2:14 PM documented in this encounter [facility] 12-23-2022 Miscellaneous Notes Spoke with patient regarding advanced directives. 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 Delia Weaver MA documented in this encounter [facility] 12-23-2022 Miscellaneous Notes The following approved medication requests have been transmitted electronically. Requested Prescriptions Signed Prescriptions Disp Refills thiamine (VITAMIN B-1) 50 mg tablet 30 tablet 5 Sig: Take 1 tablet by mouth once daily. Authorizing Provider: ERUM CASTANEDA folic acid 400 mcg tablet 30 tablet 5 Sig: Take 1 tablet by mouth once daily. Authorizing Provider: ERUM CASTANEDA PA-C Advised pt of results and Erum's instructions. Pt verbalizes understanding. Pt would like to have the 50 mg dosage sent into [facility]. Pt is aware that rx for folic acid would be snet in as well. Steve Ochoa LPN Let patient know that his vit B1 level is slightly high. Can decrease his vitamin b1 to 50mg daily or he could take the 100 every other day. Does he want me to send in new dosage? His folate level is a little low too. So I will also send in folic acid for him to take. Repeat labs in about 2-3 months. The rest of his labs were normal. Erum Castaneda PA-C documented in this encounter [facility] 10-12-2022 Note HNO ID: [id number] Author: Ivania Estrada I, MD Service: ? Author Type: Physician Type: Progress Notes Filed: 10/12/2022 3:57 PM Note Text: NEUROSURGERY FOLLOW UP OFFICE NOTE Chair, Clinical Neurosciences Director, Spinal Neurosurgery [facility] Jodie Byrd Date of visit: October 12, 2022 Patient Name: Mr.Ronald Winsome Henderson Date of : 1955 Current Age: [age] year old Sex: male MRN/E# [id number] Last Office Visit: 08/18/2022 Chief Complaint: Patient presents with: Established Patient Past Medical/Surgical History: Yaritza Henderson is a 66 year old, male with a history of HTN, ETOH abuse, fatty liver. He is a former smoker. HPI: Patient presented to [facility] on 07/06/2022, status post fall down 13 stairs while intoxicated 2 days prior with reports of neck pain and mid thoracic pain. He denied pain in upper or lower extremities. He denied weakness in extremities. Trauma work-up demonstrated C4 spinous process fracture, C7 vertical body fracture, C6/C7 right facet fracture with subluxation, T1 and T2 subacute compression. CTA head and neck unremarkable for acute vascular injury. Neurosurgery consulted,Dr. Estrada. Nonoperative conservative treatment recommended with LOGISTICS PROGRAM MANAGER collar at all times. He was discharged on 07/08/2022 with instructions to follow-up with neurosurgery in 2 weeks time. He was seen in the office on 07/17/2022 and reported doing well following hospital discharge. He denied pain in cervical or upper extremities. He denied upper extremity weakness, paresthesia, or gait difficulties. MRI of cervical spine during hospitalization was reviewed, evidence of severe central canal stenosis at C5/C6. On exam, he was mildly myelopathic. Discussed need for adequate healing time of fractures. He reported compliance with LOGISTICS PROGRAM MANAGER collar and activity restrictions. He was recommended use of Tylenol and Zanaflex for symptom control. He was asked to follow-up in 4 weeks time with repeat cervical and thoracic imaging. He was last seen on 08/18/2022 where he was 6 weeks from initial injury and had been doing well since prior visit. He denied neck or back pain, weakness or paresthesia. He reported compliance with LOGISTICS PROGRAM MANAGER collar and activity restrictions. His cervical and thoracic x-rays had been stable. He was mildly myelopathic on exam. He was requested to follow up in [address] scans of thoracic and cervical spine to see if LOGISTICS PROGRAM MANAGER brace could be removed. The patient presents to the office today to review CT imaging. He denies pain at this time. He denies new weakness or numbness/tingling. He has been compliant with wearing LOGISTICS PROGRAM MANAGER brace. He is not taking anything for pain for about 6 weeks. He He is here for evaluation and plan of care. Symptoms: patient denies pain PREVIOUS CONSERVATIVE TREATMENTS: LOGISTICS PROGRAM MANAGER collar Zanaflex Tylenol PREVIOUS SURGERY: None PAIN EVALUATION No data found in the last 1 encounters. PAST MEDICAL HISTORY Diagnosis Date Advance directive discussed with patient 11/19/2021 Discussed 10/2021 Alcohol abuse 04/25/2018 Alcohol abuse 04/25/2018 12 pck per day since around 2014 (maybe longer) Benign prostatic hyperplasia without lower urinary tract symptoms 08/01/2019 Elevated alkaline phosphatase level 06/16/2021 Alcoholic liver disease Elevated LFTs 04/25/2018 Ex-smoker 04/25/2018 Started at 7 yo, 1/2-1 PPD and quit at age 19 Ex-smoker 04/25/2018 Started at 7 yo, 1/2-1 PPD and quit at age 19 Fatty liver, alcoholic 05/08/2018 History of right shoulder fracture Hypertension, essential 02/07/2018 Medicare annual wellness visit, subsequent 08/01/2019 :Medicare Part B: 09/28/2018 Last done: 08/01/2019 Tibia/fibula fracture PAST SURGICAL HISTORY Procedure Laterality Date 2D ECHO (EXEP) 06/21/2020 EF=60%, mild menchaca dysf, 1+ [place] COLONOSCOPY 01/09/2019 Dr. Gonzalez, repeat 10 yrs REMV CATARACT EXTRACAP,INSERT LENS Bilateral Summer/fall of 2021 FAMILY HISTORY Problem Relation Age of Onset No Known Problems Mother when patient was 8 from accident No Known Problems Father No Known Problems Sister unsure of hx No Known Problems Brother doens't know hx No Known Problems Maternal Grandmother doesn't know hx No Known Problems Maternal Grandfather doesn't know hx No Known Problems Paternal Grandmother doesn't know hx No Known Problems Paternal Grandfather doesn't know hx Alzheimer's Disease No Family History Colon Cancer No Family History Prostate Cancer No Family History Coronary Artery Disease No Family History Diabetes No Family History Hypertension No Family History Hyperlipidemia No Family History Kidney Disease No Family History Seizures No Family History Stroke No Family History Thyroid No Family History ALLERGIES No Known Allergies Current Outpatient Medications Medication Sig Dispense Refill spironolactone (ALDACTONE) 25 mg tablet Take 25 mg by mouth once daily. tiZANidine (ZANAFLEX) 4 (more content not included)... [facility] 10-12-2022 History of Presen t illness Narrative NEUROSURGERY FOLLOW UP OFFICE NOTE Chair, Clinical Neurosciences Director, Spinal Neurosurgery [facility] Date of visit: October 12, 2022 Patient Name: Mr.Ronald Winsome Henderson Date of : 1955 Current Age: [age] year old Sex: male MRN/E# [id number] Last Office Visit: 08/18/2022 Chief Complaint: Patient presents with: Established Patient Past Medical/Surgical History: Yaritza Henderson is a 66 year old, male with a history of HTN, ETOH abuse, fatty liver. He is a former smoker. HPI: Patient presented to [facility] on 07/06/2022, status post fall down 13 stairs while intoxicated 2 days prior with reports of neck pain and mid thoracic pain. He denied pain in upper or lower extremities. He denied weakness in extremities. Trauma work-up demonstrated C4 spinous process fracture, C7 vertical body fracture, C6/C7 right facet fracture with subluxation, T1 and T2 subacute compression. CTA head and neck unremarkable for acute vascular injury. Neurosurgery consulted,Dr. Estrada. Nonoperative conservative treatment recommended with LOGISTICS PROGRAM MANAGER collar at all times. He was discharged on 07/08/2022 with instructions to follow-up with neurosurgery in 2 weeks time. He was seen in the office on 07/17/2022 and reported doing well following hospital discharge. He denied pain in cervical or upper extremities. He denied upper extremity weakness, paresthesia, or gait difficulties. MRI of cervical spine during hospitalization was reviewed, evidence of severe central canal stenosis at C5/C6. On exam, he was mildly myelopathic. Discussed need for adequate healing time of fractures. He reported compliance with LOGISTICS PROGRAM MANAGER collar and activity restrictions. He was recommended use of Tylenol and Zanaflex for symptom control. He was asked to follow-up in 4 weeks time with repeat cervical and thoracic imaging. He was last seen on 08/18/2022 where he was 6 weeks from initial injury and had been doing well since prior visit. He denied neck or back pain, weakness or paresthesia. He reported compliance with LOGISTICS PROGRAM MANAGER collar and activity restrictions. His cervical and thoracic x-rays had been stable. He was mildly myelopathic on exam. He was requested to follow up in [address] scans of thoracic and cervical spine to see if LOGISTICS PROGRAM MANAGER brace could be removed. The patient presents to the office today to review CT imaging. He denies pain at this time. He denies new weakness or numbness/tingling. He has been compliant with wearing LOGISTICS PROGRAM MANAGER brace. He is not taking anything for pain for about 6 weeks. He He is here for evaluation and plan of care. Symptoms: patient denies pain PREVIOUS CONSERVATIVE TREATMENTS: LOGISTICS PROGRAM MANAGER collar Zanaflex Tylenol PREVIOUS SURGERY: None PAIN EVALUATION No data found in the last 1 encounters. PAST MEDICAL HISTORY Diagnosis Date Advance directive discussed with patient 11/19/2021 Discussed 10/2021 Alcohol abuse 04/25/2018 Alcohol abuse 04/25/2018 12 pck per day since around 2014 (maybe longer) Benign prostatic hyperplasia without lower urinary tract symptoms 08/01/2019 Elevated alkaline phosphatase level 06/16/2021 Alcoholic liver disease Elevated LFTs 04/25/2018 Ex-smoker 04/25/2018 Started at 7 yo, 1/2-1 PPD and quit at age 19 Ex-smoker 04/25/2018 Started at 7 yo, 1/2-1 PPD and quit at age 19 Fatty liver, alcoholic 05/08/2018 History of right shoulder fracture Hypertension, essential 02/07/2018 Medicare annual wellness visit, subsequent 08/01/2019 :Medicare Part B: 09/28/2018 Last done: 08/01/2019 Tibia/fibula fracture PAST SURGICAL HISTORY Procedure Laterality Date 2D ECHO (EXEP) 06/21/2020 EF=60%, mild menchaca dysf, 1+ [place] COLONOSCOPY 01/09/2019 Dr. Gonzalez, repeat 10 yrs REMV CATARACT EXTRACAP,INSERT LENS Bilateral Summer/fall of 2021 FAMILY HISTORY Problem Relation Age of Onset No Known Problems Mother when patient was 8 from accident No Known Problems Father No Known Problems Sister unsure of hx No Known Problems Brother doens't know hx No Known Problems Maternal Grandmother doesn't know hx No Known Problems Maternal Grandfather doesn't know hx No Known Problems Paternal Grandmother doesn't know hx No Known Problems Paternal Grandfather doesn't know hx Alzheimer's Disease No Family History Colon Cancer No Family History Prostate Cancer No Family History Coronary Artery Disease No Family History Diabetes No Family History Hypertension No Family History Hyperlipidemia No Family History Kidney Disease No Family History Seizures No Family History Stroke No Family History Thyroid No Family History ALLERGIES No Known Allergies Current Outpatient Medications Medication Sig Dispense Refill spironolactone (ALDACTONE) 25 mg tablet Take 25 mg by mouth once daily. tiZANidine (ZANAFLEX) 4 mg tablet Take 1 tablet by mouth every 8 hours as needed. 60 tablet 0 acetaminophen (TYLENOL EXTRA STRENGTH) 500 mg tablet Take 2 tablets by mouth every 8 hours as needed for pain (for pain.). 90 tablet 0 triamterene-hydroCHLOROthiazide (MAXZIDE-25) 37.5-25 mg per tablet Take 1 tablet by mouth once daily. acetaminophen (TYLENOL) 325 mg tablet Take 3 tablets by mouth every 6 hours as needed for pain. thiamine (VITAMIN B1) 100 mg tablet Take 1 tablet by mouth once daily. 30 tablet 5 amLODIPine (NORVASC) 10 mg tablet Take 1 tablet by mouth once daily. 30 tablet 5 cyanocobalamin (VITAMIN B-12) 1,000 mcg tab Take 1 tablet by mouth once daily. 30 tablet 5 lisinopril (ZESTRIL, PRINIVIL) 40 mg tablet Take 1 tablet by mouth twice daily. 60 tablet 5 Blood Pressure Monitor kit Take blood pressure daily DX: hypertension 1 Kit 0 COMPOUNDED PRESCRIPTION Take blood pressure daily and write it down 1 Device 0 No current facility-administered medications for this visit. REVIEW OF SYSTEMS Review of Systems Constitutional: Negative for chills and fever. HENT: Negative for congestion. Eyes: Negative for visual disturbance. Respiratory: Negative for cough and shortness of breath. Cardiovascular: Negative for chest pain and leg swelling. Genitourinary: Negative for difficulty urinating. Musculoskeletal: Negative for back pain and neck pain. LOGISTICS PROGRAM MANAGER collar in place Skin: Negative for rash and wound. Neurological: Negative for dizziness, speech difficulty and numbness. Hematological: Does not bruise/bleed easily. Psychiatric/Behavioral: Negative for agitation and confusion. The patient is not nervous/anxious. OBJECTIVE: BP 138/76 Pulse 72 Ht 5' 10 (1.78m) Wt 181 lb 10.5 oz (82.4kg) SpO2 100% BMI 26.07 kg/(m^2). On examination today in clinic he is neurologically intact. Data Review IMAGING STUDIES: In clinic today I did review CT scans of cervical and thoracic spine. There appears to have been interval healing of the compression fractures. C6-7 on the right there is some mild displacement however evidence of bony growth through the fracture dislocation solidifying it. X-rays were reviewed in clinic today. On flexion-extension x-rays there is no evidence of subluxation in particular at the C6-7 level. Assessment & Plan: In summary this gentleman now has largely healed cervical thoracic fractures. I given him permission to wean himself out of his cervical collar. We discontinued the thoracic 1. I recommended he do so over the next week at most. He was thrilled. We also discussed him undergoing a course of therapy for his neck but he declined for now. He will contact us if he changes his mind. He can follow-up on a as needed basis. The following portions of the patient's history were reviewed, confirmed, and updated as necessary: allergies, current medications, past family history, past medical history, past social history, past surgical history, problem list, HPI, and ROS obtained by others. Some elements may be copied from a previous office note and have been reviewed/updated where appropriate. All portions reflect current medical decision making from today. The clinical and radiographic findings as well as the risks, benefits and alternatives of treatment have been reviewed in detail with the patient. Advised to call the office if symptoms worsen or new symptoms develop. Patient expressed understanding and is in agreement with plan. Ivania Estrada MD Chair, Clinical Neurosciences Director, Spinal Neurosurgery [facility] This note was partially generated using [employer] voice recognition system, and there may be some incorrect words, spellings, and punctuation that were not noted in checking the note before saving. documented in this encounter [facility] 09-17-2022 Miscellaneous Notes Pt notified of results, verbalizes understanding. Steve Ochoa LPN Let patient know repeat electrolyte panel shows kidney functions are back to normal. His sodium has also improved and is the best it has been in over 4 yrs. It would probably return to normal if he stopped drinking alcohol all together. documented in this encounter [facility] 08-18-2022 Note HNO ID: [id number] Author: Leah Blair APRN.MULTIMEDIA ASSISTANT Service: ? Author Type: Nurse Practitioner Type: Progress Notes Filed: 08/18/2022 1:13 PM Note Text: SPINE SURGERY FOLLOW UP NOTE YEMI Waldron Date of visit: August 18, 2022 Patient Name: Mr.Ronald Winsome Henderson Date of : 1955 Current Age: [age] year old Sex: male MRN/E# [id number] Last Office Visit: 07/17/2022 Chief Complaint: Patient presents with: Established Patient HPI Mr.Ronald Winsome Henderson has a past medical history of fatty alcoholic liver disease with EtOH abuse and hypertension. Presented to [facility] on 07/06/2022, status post fall down 13 stairs while intoxicated 2 days prior with reports of neck pain and mid thoracic pain. He denied pain in upper or lower extremities. He denied weakness in extremities. Trauma work-up demonstrated C4 spinous process fracture, C7 vertical body fracture, C6/C7 right facet fracture with subluxation, T1 and T2 subacute compression. CTA head and neck unremarkable for acute vascular injury. Neurosurgery consulted,Dr. Estrada. Nonoperative conservative treatment recommended with LOGISTICS PROGRAM MANAGER collar at all times. He was discharged on 07/08/2022 with instructions to follow-up with neurosurgery in 2 weeks time. He was last seen in the office on 07/17/2022 and reported doing well following hospital discharge. He denied pain in cervical or upper extremities. He denied upper extremity weakness, paresthesia, or gait difficulties. MRI of cervical spine during hospitalization was reviewed, evidence of severe central canal stenosis at C5/C6. On exam, he was mildly myelopathic. Discussed need for adequate healing time of fractures. He reported compliance with LOGISTICS PROGRAM MANAGER collar and activity restrictions. He denied new falls or trauma. He was recommended use of Tylenol and Zanaflex for symptom control. He was asked to follow-up in 4 weeks time with repeat cervical and thoracic imaging, prompting visit today. Today he presents to the office, 6 weeks since initial injury and reports doing well since last office visit. He denies neck or middle back pain. He denies upper extremity pain, paresthesia, or weakness. He denies difficulty with balance or gait. He reports compliance with LOGISTICS PROGRAM MANAGER collar and activity restrictions. He expresses desire for removal of the LOGISTICS PROGRAM MANAGER collar. PAIN EVALUATION No data found in the last 1 encounters. PAST MEDICAL HISTORY Diagnosis Date Advance directive discussed with patient 11/19/2021 Discussed 10/2021 Alcohol abuse 04/25/2018 Alcohol abuse 04/25/2018 12 pck per day since around 2014 (maybe longer) Benign prostatic hyperplasia without lower urinary tract symptoms 08/01/2019 Elevated alkaline phosphatase level 06/16/2021 Alcoholic liver disease Elevated LFTs 04/25/2018 Ex-smoker 04/25/2018 Started at 7 yo, 1/2-1 PPD and quit at age 19 Ex-smoker 04/25/2018 Started at 7 yo, 1/2-1 PPD and quit at age 19 Fatty liver, alcoholic 05/08/2018 History of right shoulder fracture Hypertension, essential 02/07/2018 Medicare annual wellness visit, subsequent 08/01/2019 :Medicare Part B: 09/28/2018 Last done: 08/01/2019 Tibia/fibula fracture PAST SURGICAL HISTORY Procedure Laterality Date 2D ECHO (EXEP) 06/21/2020 EF=60%, mild menchaca dysf, 1+ [place] COLONOSCOPY 01/09/2019 Dr. Gonzalez, repeat 10 yrs REMV CATARACT EXTRACAP,INSERT LENS Bilateral Summer/fall of 2021 FAMILY HISTORY Problem Relation Age of Onset No Known Problems Mother when patient was 8 from accident No Known Problems Father No Known Problems Sister unsure of hx No Known Problems Brother doens't know hx No Known Problems Maternal Grandmother doesn't know hx No Known Problems Maternal Grandfather doesn't know hx No Known Problems Paternal Grandmother doesn't know hx No Known Problems Paternal Grandfather doesn't know hx Alzheimer's Disease No Family History Colon Cancer No Family History Prostate Cancer No Family History Coronary Artery Disease No Family History Diabetes No Family History Hypertension No Family History Hyperlipidemia No Family History Kidney Disease No Family History Seizures No Family History Stroke No Family History Thyroid No Family History ALLERGIES No Known Allergies Current Outpatient Medications Medication Sig Dispense Refill triamterene-hydroCHLOROthiazide (MAXZIDE-25) 37.5-25 mg per tablet Take 1 tablet by mouth once daily. thiamine (VITAMIN B1) 100 mg tablet Take 1 tablet by mouth once daily. 30 tablet 5 amLODIPine (NORVASC) 10 mg tablet Take 1 tablet by mouth once daily. 30 tablet 5 cyanocobalamin (VITAMIN B-12) 1,000 mcg tab Take 1 tablet by mouth once daily. 30 tablet 5 lisinopril (ZESTRIL, PRINIVIL) 40 mg tablet Take 1 tablet by mouth twice daily. 60 tablet 5 Blood Pressure Monitor kit Take blood pressure daily DX: hypertension 1 Kit 0 COMPOUNDED PRESCRIPTION Take blood pressure daily and write it down 1 Device 0 tiZANidi (more content not included)... [facility] 08-18-2022 History of Presen t illness Narrative Images from the original note were not included. SPINE SURGERY FOLLOW UP NOTE YEMI Waldron Date of visit: August 18, 2022 Patient Name: Mr.Ronald Winsome Henderson Date of : 1955 Current Age: [age] year old Sex: male MRN/E# [id number] Last Office Visit: 07/17/2022 Chief Complaint: Patient presents with: Established Patient HPI Mr.Ronald Winsome Henderson has a past medical history of fatty alcoholic liver disease with EtOH abuse and hypertension. Presented to [facility] on 07/06/2022, status post fall down 13 stairs while intoxicated 2 days prior with reports of neck pain and mid thoracic pain. He denied pain in upper or lower extremities. He denied weakness in extremities. Trauma work-up demonstrated C4 spinous process fracture, C7 vertical body fracture, C6/C7 right facet fracture with subluxation, T1 and T2 subacute compression. CTA head and neck unremarkable for acute vascular injury. Neurosurgery consulted,Dr. Estrada. Nonoperative conservative treatment recommended with LOGISTICS PROGRAM MANAGER collar at all times. He was discharged on 07/08/2022 with instructions to follow-up with neurosurgery in 2 weeks time. He was last seen in the office on 07/17/2022 and reported doing well following hospital discharge. He denied pain in cervical or upper extremities. He denied upper extremity weakness, paresthesia, or gait difficulties. MRI of cervical spine during hospitalization was reviewed, evidence of severe central canal stenosis at C5/C6. On exam, he was mildly myelopathic. Discussed need for adequate healing time of fractures. He reported compliance with LOGISTICS PROGRAM MANAGER collar and activity restrictions. He denied new falls or trauma. He was recommended use of Tylenol and Zanaflex for symptom control. He was asked to follow-up in 4 weeks time with repeat cervical and thoracic imaging, prompting visit today. Today he presents to the office, 6 weeks since initial injury and reports doing well since last office visit. He denies neck or middle back pain. He denies upper extremity pain, paresthesia, or weakness. He denies difficulty with balance or gait. He reports compliance with LOGISTICS PROGRAM MANAGER collar and activity restrictions. He expresses desire for removal of the LOGISTICS PROGRAM MANAGER collar. PAIN EVALUATION No data found in the last 1 encounters. PAST MEDICAL HISTORY Diagnosis Date Advance directive discussed with patient 11/19/2021 Discussed 10/2021 Alcohol abuse 04/25/2018 Alcohol abuse 04/25/2018 12 pck per day since around 2014 (maybe longer) Benign prostatic hyperplasia without lower urinary tract symptoms 08/01/2019 Elevated alkaline phosphatase level 06/16/2021 Alcoholic liver disease Elevated LFTs 04/25/2018 Ex-smoker 04/25/2018 Started at 7 yo, 1/2-1 PPD and quit at age 19 Ex-smoker 04/25/2018 Started at 7 yo, 1/2-1 PPD and quit at age 19 Fatty liver, alcoholic 05/08/2018 History of right shoulder fracture Hypertension, essential 02/07/2018 Medicare annual wellness visit, subsequent 08/01/2019 :Medicare Part B: 09/28/2018 Last done: 08/01/2019 Tibia/fibula fracture PAST SURGICAL HISTORY Procedure Laterality Date 2D ECHO (EXEP) 06/21/2020 EF=60%, mild menchaca dysf, 1+ [place] COLONOSCOPY 01/09/2019 Dr. Gonzalez, repeat 10 yrs REMV CATARACT EXTRACAP,INSERT LENS Bilateral Summer/fall of 2021 FAMILY HISTORY Problem Relation Age of Onset No Known Problems Mother when patient was 8 from accident No Known Problems Father No Known Problems Sister unsure of hx No Known Problems Brother doens't know hx No Known Problems Maternal Grandmother doesn't know hx No Known Problems Maternal Grandfather doesn't know hx No Known Problems Paternal Grandmother doesn't know hx No Known Problems Paternal Grandfather doesn't know hx Alzheimer's Disease No Family History Colon Cancer No Family History Prostate Cancer No Family History Coronary Artery Disease No Family History Diabetes No Family History Hypertension No Family History Hyperlipidemia No Family History Kidney Disease No Family History Seizures No Family History Stroke No Family History Thyroid No Family History ALLERGIES No Known Allergies Current Outpatient Medications Medication Sig Dispense Refill triamterene-hydroCHLOROthiazide (MAXZIDE-25) 37.5-25 mg per tablet Take 1 tablet by mouth once daily. thiamine (VITAMIN B1) 100 mg tablet Take 1 tablet by mouth once daily. 30 tablet 5 amLODIPine (NORVASC) 10 mg tablet Take 1 tablet by mouth once daily. 30 tablet 5 cyanocobalamin (VITAMIN B-12) 1,000 mcg tab Take 1 tablet by mouth once daily. 30 tablet 5 lisinopril (ZESTRIL, PRINIVIL) 40 mg tablet Take 1 tablet by mouth twice daily. 60 tablet 5 Blood Pressure Monitor kit Take blood pressure daily DX: hypertension 1 Kit 0 COMPOUNDED PRESCRIPTION Take blood pressure daily and write it down 1 Device 0 tiZANidine (ZANAFLEX) 4 mg tablet Take 1 tablet by mouth every 8 hours as needed. 60 tablet 0 acetaminophen (TYLENOL EXTRA STRENGTH) 500 mg tablet Take 2 tablets by mouth every 8 hours as needed for pain (for pain.). 90 tablet 0 acetaminophen (TYLENOL) 325 mg tablet Take 3 tablets by mouth every 6 hours as needed for pain. No current facility-administered medications for this visit. REVIEW OF SYSTEMS Review of Systems Constitutional: Negative for chills, diaphoresis and fever. HENT: Negative for congestion and trouble swallowing. Eyes: Negative for discharge and visual disturbance. Respiratory: Negative for cough, shortness of breath and wheezing. Cardiovascular: Negative for chest pain, palpitations and leg swelling. Gastrointestinal: Negative for constipation, diarrhea and nausea. Endocrine: Negative for cold intolerance and heat intolerance. Genitourinary: Negative for difficulty urinating, frequency and urgency. Musculoskeletal: Negative for back pain, gait problem and neck pain. Skin: Negative for rash and wound. Allergic/Immunologic: Negative for environmental allergies and food allergies. Neurological: Negative for dizziness, weakness and numbness. Hematological: Does not bruise/bleed easily. Psychiatric/Behavioral: Negative for agitation, behavioral problems and confusion. The patient is not nervous/anxious. OBJECTIVE: BP 143/84 Pulse 72 Ht 5' 10 (1.78m) Wt 166 lb (75.3kg) SpO2 100% BMI 23.82 kg/(m^2). PHYSICAL EXAM: General appearance: Well nourished, well developed, and no apparent distress. Mental State : Alert, memory function unremarkable. Oriented to person, place and time. Recent and remote memory normal. Pulmonary: Respirations regular and unlabored. Cardiac: Regular rate and rhythm. Skin: Intact, warm, dry. MUSCULOSKELETAL Sensory: Sensation intact to light touch Palpation: SPINOUS PROCESS: No pain. PARASPINALS: No pain. Motor: Normal muscle tone and bulk. No tremor or uncontrollable movements. No spasticity or tremor. Gait and Station: Normal gait. No assistive device usage. Difficulty with tandem gait. Range of motion: Cervical: Limited range of motion, LOGISTICS PROGRAM MANAGER collar maintained. Lumbar: Normal range of motion, no tenderness. Long tract signs: Positive bilateral Areli's Reflexes: symmetric non-brisk in bilateral upper extremities. +3 bilateral patellar reflexes. MUSCLE TONE and BULK: Symmetrical in the upper & lower extremities. Upper Extremity Strength Exam Right Left Deltoid 5/5 5/5 Biceps 5/5 5/5 Triceps 5/5 5/5 Wrist Extension 5/5 5/5 Interossei 5/5 5/5 Lower Extremity Strength Exam Right Left Psoas 5/5 5/5 Quadriceps 5/5 5/5 DF 5/5 5/5 EHL 5/5 5/5 PF 5/5 5/5 Data Review: CT of cervical spine completed on 07/06/2022: MRI cervical and thoracic spine completed on 07/06/2022: IMPRESSION: Acute/subacute mild anterior wedge compression fractures of the C7 vertebral body. Acute/subacute minimal anterior wedge compression fractures of the T1 and T2 vertebral bodies. Multilevel degenerative changes of the cervical and thoracic spine, most pronounced at C5-C6 with severe spinal canal stenosis and severe bilateral neural foraminal narrowing X-ray of cervical spine completed on 07/17/2022: IMPRESSION: Unchanged mild superior endplate fractures of C7, T1, and T2. Straightening of normal cervical lordosis likely positional or due to neck spasm. Mild apex LEFT scoliosis in the thoracic spine. Degenerative changes as described. X-ray of cervical and thoracic spine completed on 08/18/2022: Final read pending Unchanged compared to previous imaging. Stable alignment Assessment/ Plan: (M48.02) Spinal stenosis in cervical region (primary encounter diagnosis) -Patient is mildly myelopathic. Discussed causes and natural history of cervical myelopathy. Discussed with the patient the signs and symptoms and what to look for in worsening symptoms. Discussed with patient surgical intervention is to halt the progression of disease and recovery of neurological function would be considered an added bonus. Patient reports he has no desire to undergo surgical intervention if recommended at this time and therefore will defer repeating MRI of cervical spine. Plan: CT CERVICAL SPINE WO IVCON (S12.600D) Closed displaced fracture of seventh cervical vertebra with routine healing, unspecified fracture morphology, subsequent encounter (S22.019D) Closed fracture of first thoracic vertebra with routine healing, unspecified fracture morphology, subsequent encounter -Patient presents to the office today for continued follow-up monitoring of multiple fractures. He is 6 weeks since initial injury. Clinically he is doing well with no pain and no upper extremity radicular symptoms. He has good strength throughout on exam. Discussed with patient need to maintain LOGISTICS PROGRAM MANAGER collar at this time as he is only 6 weeks since initial injury. Although frustrated he is understanding of importance of LOGISTICS PROGRAM MANAGER collar and activity restrictions. We will have him follow-up in [address] of cervical and thoracic spine at that time he will be 11 weeks since initial injury. He can follow-up with Dr. Estrada as she was following him throughout hospitalization in hopes to clear LOGISTICS PROGRAM MANAGER collar. Will defer flexion/extension films until CT of cervical spine obtained, will need same-day after Dr. Estrada reviews CT scan Patient is to contact office if any new or worsening symptoms arise. Plan: CT CERVICAL SPINE WO IVCON YEMI Waldron [facility] This note was partially generated using [employer] voice recognition system, and there may be some incorrect words, spellings, and punctuation that were not noted in checking the note before saving. documented in this encounter [facility] 08-05-2022 History of Presen t illness Narrative Yaritza Henderson is identified through a medication adherence outreach initiative based on pharmacy claims data from [employer] (insurer) for [facility] medication(s). Patient is reviewed 08/05/22 due to medication adherence concerns with the following medications (name, strength, sig): Lisinopril 40mg bid . Per data/report, last fill date and days supply: n/a Per reconcile dispense, last fill date and days supply: 07/28/22 for 30 day supply Per call to pharmacy, last picked up date and days supply: n/a Outcome of review/outreach: (choose outcome source and status) - Filled before Next fill date per reconcile dispense Sharron Peña Tech documented in this encounter [facility] 08-04-2022 History of Presen t illness Narrative Patient's home health 485 form / care plan for certification period 07/11/2022 to 09/08/2022 reviewed and signed. Relevant medical records were reviewed. No changes were indicated documented in this encounter [facility] 07-28-2022 Miscellaneous Notes SITUATION: dtr and son in law present during today's visit. patient reports the following since the last homecare visit: medications/allergies--none, no fall. patient reports he is feeling much better, pain is getting better and has been able to do more for himself. . States he has to wear the brace 2 1/2 more weeks BACKGROUND: Diagnoses (reason for Home Care): Fracture of neck, unspecified, initial encounter Weight Bearing/Precaution Changes: no changes ASSESSMENT: Focus of visit: reassessment /discharge Physical therapy discharged: goals achieved. Functional performance at discharge - bed mobility, independent , transfers- independent, ambulation - independent, steps independent Plan of care, goals, and discharge reviewed and agreed upon with patient and/or caregiver. RECOMMENDATION: Patient discharged from home health services. Instructions to include:home exercise program as directed See intervention summary for intervention/education details. documented in this encounter [facility] 07-20-2022 Miscellaneous Notes Spoke with pt and information listed below given. Pt verbalizes understanding. Shahla Banks LPN Advise patient the pain medication will need discussed with the neurosurgeon tomorrow. Pt called in asking if provider would send in pain medication. He states he forgot to ask this morning at his appointment he was in so much pain from his neck. Patient has been identified by name and date of : Yes Requested Prescriptions Pending Prescriptions Disp Refills oxyCODONE IR (ROXICODONE) 5 mg immediate release tablet 15 tablet 0 Sig: Take 1 tablet by mouth every 8 hours as needed for pain for up to 5 days. RX INSTRUCTIONS: Patient aware RX will be sent to pharmacy. No need to notify patient. Delia Weaver MA Medicine was prescription by General Surgery. Does this need to go back to them? Patient requesting a call when RX is approved and sent to the pharmacy. Please call patient at: [phone] Patient has been identified by name and date of : Yes Requested Prescriptions Pending Prescriptions Disp Refills oxyCODONE IR (ROXICODONE) 5 mg immediate release tablet 15 tablet 0 Sig: Take 1 tablet by mouth every 8 hours as needed for pain for up to 5 days. RX INSTRUCTIONS: Patient requesting a call when RX is approved and sent to the pharmacy. Please call patient at: [phone] Kaylee Glez Pss documented in this encounter [facility] 07-17-2022 History of Past i llness Narrative Problem Noted Date Diagnosed Date Resolved Date Closed fracture of first tho racic vertebra with routine healing 07/17/2022 12/16/2022 Closed fracture of spinous p rocess of cervical vertebra 07/06/2022 12/16/2022 Closed displaced fracture of seventh cervical vertebra with routine healing 07/06/2022 12/16/2022 Subluxation of c6/C7 cervica l vertebrae, initial encounter 07/06/2022 12/16/2022 Proteinuria 04/25/2018 11/19/2021 documented as of this encounter (statuses as of 12/23/2022) [facility]02-17-2023 History of Past illness Narrative* Problem Noted Date Diagnosed Date Resolved Date Closed fracture of first tho racic vertebra with routine healing 07/17/2022 12/16/2022 Closed fracture of spinous p rocess of cervical vertebra 07/06/2022 12/16/2022 Closed displaced fracture of seventh cervical vertebra with routine healing 07/06/2022 12/16/2022 Subluxation of c6/C7 cervica l vertebrae, initial encounter 07/06/2022 12/16/2022 Proteinuria 04/25/2018 11/19/2021 documented as of this encounter (statuses as of 12/23/2022) [facility]20[facility] History of Past illness Narrative* Problem Noted Date Diagnosed Date Resolved Date Closed fracture of first tho racic vertebra with routine healing 07/17/2022 12/16/2022 Closed fracture of spinous p rocess of cervical vertebra 07/06/2022 12/16/2022 Closed displaced fracture of seventh cervical vertebra with routine healing 07/06/2022 12/16/2022 Subluxation of c6/C7 cervica l vertebrae, initial encounter 07/06/2022 12/16/2022 Proteinuria 04/25/2018 11/19/2021 documented as of this encounter (statuses as of 01/02/2023) [facility]20[facility] History of Past illness Narrative* Problem Noted Date Diagnosed Date Resolved Date Closed fracture of first tho racic vertebra with routine healing 07/17/2022 12/16/2022 Closed fracture of spinous p rocess of cervical vertebra 07/06/2022 12/16/2022 Closed displaced fracture of seventh cervical vertebra with routine healing 07/06/2022 12/16/2022 Subluxation of c6/C7 cervica l vertebrae, initial encounter 07/06/2022 12/16/2022 Proteinuria 04/25/2018 11/19/2021 documented as of this encounter (statuses as of 03/16/2023) [facility] History of Past illness Narrative* Problem Noted Date Diagnosed Date Resolved Date Closed fracture of first tho racic vertebra with routine healing 07/17/2022 12/16/2022 Closed fracture of spinous p rocess of cervical vertebra 07/06/2022 12/16/2022 Closed displaced fracture of seventh cervical vertebra with routine healing 07/06/2022 12/16/2022 Subluxation of c6/C7 cervica l vertebrae, initial encounter 07/06/2022 12/16/2022 Proteinuria 04/25/2018 11/19/2021 documented as of this encounter (statuses as of 04/04/2023) [facility] History of Past illness Narrative* Problem Noted Date Diagnosed Date Resolved Date Closed fracture of first tho racic vertebra with routine healing 07/17/2022 12/16/2022 Closed fracture of spinous p rocess of cervical vertebra 07/06/2022 12/16/2022 Closed displaced fracture of seventh cervical vertebra with routine healing 07/06/2022 12/16/2022 Subluxation of c6/C7 cervica l vertebrae, initial encounter 07/06/2022 12/16/2022 Proteinuria 04/25/2018 11/19/2021 documented as of this encounter (statuses as of 04/04/2023) [facility]20[facility] History of Past illness Narrative* Problem Noted Date Diagnosed Date Resolved Date Closed fracture of first tho racic vertebra with routine healing 07/17/2022 12/16/2022 Closed fracture of spinous p rocess of cervical vertebra 07/06/2022 12/16/2022 Closed displaced fracture of seventh cervical vertebra with routine healing 07/06/2022 12/16/2022 Subluxation of c6/C7 cervica l vertebrae, initial encounter 07/06/2022 12/16/2022 Proteinuria 04/25/2018 11/19/2021 documented as of this encounter (statuses as of 07/19/2023) [facility]02-17-2023 NoteHNO ID: [id number] Author: Leah Blair APRN.CNP Service: ? Author Type: Nurse Practitioner Type: Progress Notes Filed: 07/17/2022 3:42 PM Note Text: SPINE SURGERY FOLLOW UP NOTE YEMI Waldron Date of visit: July 17, 2022 Patient Name: Mr.Ronald Winsome Henderson Date of : 1955 Current Age: [age] year old Sex: male MRN/E# [id number] Last Office Visit: 07/09/2022 Chief Complaint: Fracture follow up HPI Mr.Ronald Winsome Henderson has a past medical history of fatty alcoholic liver disease with EtOH abuse and hypertension. Presented to [facility] on 07/06/2022, status post fall down 13 stairs while intoxicated 2 days prior with reports of neck pain and mid thoracic pain. He denied pain in upper or lower extremities. He denied weakness in extremities. Trauma work-up demonstrated C4 spinous process fracture, C7 vertical body fracture, C6/C7 right facet fracture with subluxation, T1 and T2 subacute compression. CTA head and neck unremarkable for acute vascular injury. Neurosurgery consulted,Dr. Estrada. Nonoperative conservative treatment recommended with LOGISTICS PROGRAM MANAGER collar at all times. He was discharged on 07/08/2022 with instructions to follow-up with neurosurgery in 2 weeks time, prompting visit today. He presents to the office today, 2 weeks since initial injury, and reports doing well since hospital discharge. He reports compliance with LOGISTICS PROGRAM MANAGER collar and activity restrictions. He denies any new falls or trauma since hospital discharge. He denies cervical or upper extremity pain. He denies upper extremity weakness, paresthesia, or gait difficulties. He is ambulating without assistive device. He is having pain primarily in right thoracic paraspinal region that is tolerable with oral medication, requesting a refill on oxycodone. He reports significant reduction of alcohol intake. Symptoms: Right thoracic paraspinal pain PAIN EVALUATION 07/17/2022 0929 Pain Level: 8 Pain Location: Neck Description: Aching;Dull Duration Amount of Time: 2 Duration Units: Weeks Frequency: Intermittent Intervention/Comfort measure: Medication;Support surface PAST MEDICAL HISTORY Diagnosis Date Advance directive discussed with patient 11/19/2021 Discussed 10/2021 Alcohol abuse 04/25/2018 Alcohol abuse 04/25/2018 12 pck per day since around 2014 (maybe longer) Benign prostatic hyperplasia without lower urinary tract symptoms 08/01/2019 Elevated alkaline phosphatase level 06/16/2021 Alcoholic liver disease Elevated LFTs 04/25/2018 Ex-smoker 04/25/2018 Started at 7 yo, 1/2-1 PPD and quit at age 19 Ex-smoker 04/25/2018 Started at 7 yo, 1/2-1 PPD and quit at age 19 Fatty liver, alcoholic 05/08/2018 History of right shoulder fracture Hypertension, essential 02/07/2018 Medicare annual wellness visit, subsequent 08/01/2019 :Medicare Part B: 09/28/2018 Last done: 08/01/2019 Tibia/fibula fracture PAST SURGICAL HISTORY Procedure Laterality Date 2D ECHO (EXEP) 06/21/2020 EF=60%, mild menchaca dysf, 1+ [place] COLONOSCOPY 01/09/2019 Dr. Gonzalez, repeat 10 yrs REMV CATARACT EXTRACAP,INSERT LENS Bilateral Summer/fall of 2021 FAMILY HISTORY Problem Relation Age of Onset No Known Problems Mother when patient was 8 from accident No Known Problems Father No Known Problems Sister unsure of hx No Known Problems Brother doens't know hx No Known Problems Maternal Grandmother doesn't know hx No Known Problems Maternal Grandfather doesn't know hx No Known Problems Paternal Grandmother doesn't know hx No Known Problems Paternal Grandfather doesn't know hx Alzheimer's Disease No Family History Colon Cancer No Family History Prostate Cancer No Family History Coronary Artery Disease No Family History Diabetes No Family History Hypertension No Family History Hyperlipidemia No Family History Kidney Disease No Family History Seizures No Family History Stroke No Family History Thyroid No Family History ALLERGIES No Known Allergies Current Outpatient Medications Medication Sig Dispense Refill triamterene-hydroCHLOROthiazide (MAXZIDE-25) 37.5-25 mg per tablet Take 1 tablet by mouth once daily. acetaminophen (TYLENOL) 325 mg tablet Take 3 tablets by mouth every 6 hours as needed for pain. thiamine (VITAMIN B1) 100 mg tablet Take 1 tablet by mouth once daily. 30 tablet 5 amLODIPine (NORVASC) 10 mg tablet Take 1 tablet by mouth once daily. 30 tablet 5 cyanocobalamin (VITAMIN B-12) 1,000 mcg tab Take 1 tablet by mouth once daily. 30 tablet 5 lisinopril (ZESTRIL, PRINIVIL) 40 mg tablet Take 1 tablet by mouth twice daily. 60 tablet 5 Blood Pressure Monitor kit Take blood pressure daily DX: hypertension 1 Kit 0 COMPOUNDED PRESCRIPTION Take blood pressure daily and write it down 1 Device 0 tiZANidine (ZANAFLEX) 4 mg tablet Take 1 tablet by mouth every 8 hours as needed. 60 tablet 0 acetaminophen (TYLENOL EXTRA STRENGTH) 500 mg tablet Take 2 tablets by mo (more content not included)...[facility]02-17-2023 History of Present illness Narrative* Leah Blair APRN.MULTIMEDIA ASSISTANT - 07/17/2022 9:30 AM EST Images from the original note were not included. SPINE SURGERY FOLLOW UP NOTE Leah Blair APRN-BIRGIT Date of visit: July 17, 2022 Patient Name: Mr.Ronald Winsome Henderson Date of : 1955 Current Age: [age] year old Sex: male MRN/E# [id number] Last Office Visit: 07/09/2022 Chief Complaint: Fracture follow up HPI Mr.Ronald Winsome Henderson has a past medical history of fatty alcoholic liver disease with EtOH abuse and hypertension. Presented to [facility] on 07/06/2022, status post fall down 13 stairs while intoxicated 2 days prior with reports of neck pain and mid thoracic pain. He denied pain in upper or lower extremities. He denied weakness in extremities. Trauma work-up demonstrated C4 spinous process fracture, C7 vertical body fracture, C6/C7 right facet fracture with subluxation, T1 and T2 subacute compression.CTA head and neck unremarkable for acute vascular injury. Neurosurgery consulted,Dr. Estrada. Nonoperative conservative treatment recommended with LOGISTICS PROGRAM MANAGER collar at all times. He was discharged on 07/08/2022 with instructions to follow-up with neurosurgery in 2 weeks time, prompting visit today. He presents to the office today, 2 weeks since initial injury, and reports doing well since hospital discharge. He reports compliance with LOGISTICS PROGRAM MANAGER collar and activity restrictions. He denies any new falls or trauma since hospital discharge. He denies cervical or upper extremity pain. He denies upper extremity weakness, paresthesia, or gait difficulties. He is ambulating without assistive device. He is having pain primarily in right thoracic paraspinal region that is tolerable with oral medication, requesting a refill on oxycodone. He reports significant reduction of alcohol intake. Symptoms: Right thoracic paraspinal pain PAIN EVALUATION 07/17/2022 0929 Pain Level: 8 Pain Location: Neck Description: Aching;Dull Duration Amount of Time: 2 Duration Units: Weeks Frequency: Intermittent Intervention/Comfort measure: Medication;Support surface PAST MEDICAL HISTORY Diagnosis Date Advance directive discussed with patient 11/19/2021 Discussed 10/2021 Alcohol abuse 04/25/2018 Alcohol abuse 04/25/2018 12 pck per day since around 2014 (maybe longer) Benign prostatic hyperplasia without lower urinary tract symptoms 08/01/2019 Elevated alkaline phosphatase level 06/16/2021 Alcoholic liver disease Elevated LFTs 04/25/2018 Ex-smoker 04/25/2018 Started at 7 yo, 1/2-1 PPD and quit at age 19 Ex-smoker 04/25/2018 Started at 7 yo, 1/2-1 PPD and quit at age 19 Fatty liver, alcoholic 05/08/2018 History of right shoulder fracture Hypertension, essential 02/07/2018 Medicare annual wellness visit, subsequent 08/01/2019 :Medicare Part B: 09/28/2018 Last done: 08/01/2019 Tibia/fibula fracture PAST SURGICAL HISTORY Procedure Laterality Date 2D ECHO (EXEP) 06/21/2020 EF=60%, mild [place] dysf, 1+ [place] COLONOSCOPY 01/09/2019 Dr. Gonzalez, repeat 10 yrs REMV CATARACT EXTRACAP,INSERT LENS Bilateral Summer/fall of 2021 FAMILY HISTORY Problem Relation Age of Onset No Known Problems Mother when patient was 8 from accident No Known Problems Father No Known Problems Sister unsure of hx No Known Problems Brother doens't know hx No Known Problems Maternal Grandmother doesn't know hx No Known Problems Maternal Grandfather doesn't know hx No Known Problems Paternal Grandmother doesn't know hx No Known Problems Paternal Grandfather doesn't know hx Alzheimer's Disease No Family History Colon Cancer No Family History Prostate Cancer No Family History Coronary Artery Disease No Family History Diabetes No Family History Hypertension No Family History Hyperlipidemia No Family History Kidney Disease No Family History Seizures No Family History Stroke No Family History Thyroid No Family History ALLERGIES No Known Allergies Current Outpatient Medications Medication Sig Dispense Refill triamterene-hydroCHLOROthiazide (MAXZIDE-25) 37.5-25 mg per tablet Take 1 tablet by mouth once daily. acetaminophen (TYLENOL) 325 mg tablet Take 3 tablets by mouth every 6 hours as needed for pain. thiamine (VITAMIN B1) 100 mg tablet Take 1 tablet by mouth once daily. 30 tablet 5 amLODIPine (NORVASC) 10 mg tablet Take 1 tablet by mouth once daily. 30 tablet 5 cyanocobalamin (VITAMIN B-12) 1,000 mcg tab Take 1 tablet by mouth once daily. 30 tablet 5 lisinopril (ZESTRIL, PRINIVIL) 40 mg tablet Take 1 tablet by mouth twice daily. 60 tablet 5 Blood Pressure Monitor kit Take blood pressure daily DX: hypertension 1 Kit 0 COMPOUNDED PRESCRIPTION Take blood pressure daily and write it down 1 Device 0 tiZANidine (ZANAFLEX) 4 mg tablet Take 1 tablet by mouth every 8 hours as needed. 60 tablet 0 acetaminophen (TYLENOL EXTRA STRENGTH) 500 mg tablet Take 2 tablets by mouth every 8 hours as needed for pain (for pain.). 90 tablet 0 No current facility-administered medications for this visit. REVIEW OF SYSTEMS Review of Systems Constitutional: Negative for chills, diaphoresis and fever. HENT: Negative for congestion, sinus pressure and trouble swallowing. Eyes: Negative for discharge and redness. Respiratory: Negative for cough, shortness of breath and wheezing. Cardiovascular: Negative for chest pain, palpitations and leg swelling. Gastrointestinal: Negative for constipation, diarrhea and nausea. Endocrine: Negative for cold intolerance and heat intolerance. Genitourinary: Negative for difficulty urinating, frequency and urgency. Musculoskeletal: Positive for myalgias, neck pain and neck stiffness. Negative for back pain and gait problem. Skin: Negative for rash and wound. Allergic/Immunologic: Negative for environmental allergies and food allergies. Neurological: Negative for dizziness, weakness and numbness. Hematological: Does not bruise/bleed easily. Psychiatric/Behavioral: Negative for agitation and behavioral problems. The patient is not nervous/anxious. OBJECTIVE: BP 90/66 Pulse 78 Ht 5' 10 (1.78m) Wt 166 lb (75.3kg) SpO2 97% BMI 23.82 kg/(m^2). PHYSICAL EXAM: General appearance: Well nourished, well developed, and no apparent distress. Mental State : Alert, memory function unremarkable. Oriented to person, place and time. Recent and remote memory normal. Pulmonary: Respirations regular and unlabored. Cardiac: Regular rate and rhythm. Skin: Intact, warm, dry. MUSCULOSKELETAL Sensory: Sensation intact to light touch Palpation: SPINOUS PROCESS: No pain. PARASPINALS: Mild discomfort in right thoracic paraspinal region Motor: Normal muscle tone and bulk. No tremor or uncontrollable movements. No spasticity or tremor. Gait and Station: Normal gait. No assistive device usage. Mild degree of difficulty with tandem gait. Range of motion: Cervical: Limited range of motion, LOGISTICS PROGRAM MANAGER brace collar maintained. Lumbar: Normal range of motion, no tenderness. Long tract signs: No clonus. Positive right-sided Areli's. Positive left- sided Areli's. Reflexes: symmetric non-brisk in bilateral upper extremities. +3 bilateral patellar reflexes. MUSCLE TONE and BULK: Symmetrical in the upper & lower extremities. Upper Extremity Strength Exam Right Left Deltoid 5/5 5/5 Biceps 5/5 5/5 Triceps 5/5 5/5 Wrist Extension 5/5 5/5 Interossei 5/5 5/5 Lower Extremity Strength Exam Right Left Psoas 5/5 5/5 Quadriceps 5/5 5/5 DF 5/5 5/5 EHL 5/5 5/5 PF 5/5 5/5 Data Review: CT of cervical spine completed on 07/06/2022: MRI cervical and thoracic spine completed on 07/06/2022: IMPRESSION: Acute/subacute mild anterior wedge compression fractures of the C7 vertebral body. Acute/subacute minimal anterior wedge compression fractures of the T1 and T2 vertebral bodies. Multilevel degenerative changes of the cervical and thoracic spine, most pronounced at C5-C6 with severe spinal canal stenosis and severe bilateral neural foraminal narrowing. X-ray of cervical and thoracic spine completed on 07/17/2022: No evidence of cervical or thoracic instability. Assessment/Plan: (M48.02) Spinal stenosis in cervical region (primary encounter diagnosis) (S12.9XXD) Closed fracture of spinous process of cervical vertebra, subsequent encounter (S22.019D) Closed fracture of first thoracic vertebra with routine healing, unspecified fracture morphology, subsequent encounter -Patient presents to the office today for follow-up monitoring of cervical and thoracic fractures. I do note MRI of cervical spine during hospitalization there is severe central canal stenosis at C5/C6. He is mildly myelopathic on exam. At this time he is 2 weeks out since onset of fractures. Adequate healing time of fractures is necessary. We will have patient follow-up with Dr. Estrada at 3-month status post injury for reevaluation of cervical stenosis. At this time, patient is overall doing quite well at this time regarding cervical and thoracic fractures. He has good strength throughout on exam and no cervical or thoracic spinous process TTP. He is pain is primarily in the right thoracic paraspinal region in which she had been utilizing Oxy IR for symptom management. He requested a refill, I do not recommend narcotic for symptom management. Recommended trial of tizanidine for symptom control. Benefits and side effects of medication were discussed and patient wishes to proceed with use. Additionally, recommended utilization of Tylenol 1000 mg 3 times daily as needed for symptom management. -Activity restrictions reinforced including no bending/pushing greater than 10 pounds, avoid bending/twisting at waist, and maintain LOGISTICS PROGRAM MANAGER collar at all times. Discussed with patient expected length ofactivity restrictions for 3 months after initial injury. -Radiographic imaging stable compared to previous imaging. I will see him back in 4 weeks with repeat imaging. Patient asked to contact her office if any new or worsening symptoms arise Plan: XR THORACIC LIMITED 2V AP/LAT, tiZANidine (ZANAFLEX) 4 mg tablet, acetaminophen (TYLENOL EXTRA STRENGTH) 500 mg tablet Leah Blair APRN-MULTIMEDIA ASSISTANT Neurosurgery Nurse Practitioner [facility] This note was partially generated using [employer] recognition system, and there may be some incorrect words, spellings, and punctuation that were not noted in checking the note before saving. [facility] Miscellaneous Notes* Telephone Encounter - Aylin Dubois LPN - 07/17/2022 7:42 AM EST Pt notified of results & instructions, pt verbalized understanding. Aylin Dubois LPN * Telephone Encounter - Fredrick Feliciano MD - 07/16/2022 6:54 PM EST Let patient know electrolyte panel shows sodium is improving. His kidney functions are decreased and appears he needs to drink more water daily. Will have lab repeated in 2 weeks. Order placed. [facility] Miscellaneous Notes* PT ROUTINE/REASSESSMENT/RECERT/CASE MGMT - Erika Haney PTA - 07/16/2022 12:05 PM EST SITUATION: daughter present during today's visit. patient reports the following since the last homecare visit:medications/allergies--no changes, no fall. patient reports he saw PC today and all went well. .Patinet reports he is waiting on Dr to return call about pain med refill. BACKGROUND: Diagnoses (reason for Home Care): Fracture of neck, unspecified, initial encounter Unspecified displaced fracture of seventh cervical vert ebra, subsequent encounter for fracture with routine healingSubluxation of C6/C7 cervical vertebrae, initial encounter Weight Bearing/Precaution Changes: No lifting >10lbs, no bending, lifting or twisted ASSESSMENT: Focus of visit performed standing LE strength exercses for HEP, stair trainig. Patient philipp himself on botton step. Had brief increase in pain, returned to baseline w/ seated rest. Encouraged patient to try ice on right shoulder blade region to help w/ pain. Plan of care, goals, and visit frequency reviewed and agreed upon with patient and/or caregiver. Current Discharge Plan: independent with home exercise program Anticipate discharge by 07/28/22 RECOMMENDATION: Next visit to focus on add lateral stepping at counter See intervention summary for intervention/education details. [facility] History of Present illness Narrative* Fredrick Feliciano MD - 07/16/2022 10:00 AM EST Transitional Care Management TCM Eligibility Documentation The following information was gathered during the initial Patient Outreach Encounter. Date of Outreach: 07/09/2022 Outreach Attempt 1: Contact Made Date of Discharge 07/08/2022 Some recent data might be hidden Provider Documentation Yaritza Henderson is a 66 year old male here today for a follow up from recent hospitalization. I have reviewed the patient's hospital course including discharge summary, discharge medications , and follow up needs with the patient and any family members present at today's visit. HPI (from discharge note) Mr. Yaritza Henderson was admitted to [facility] under the care of the trauma surgery team on 07/06/2022 as a transfer from [facility] for treatment of injuries sustained during a reported fall down stairsthat occurred on 07/04/2022. He would undergo extensive CT, x-ray and MRI imaging that revealed the following traumatic injuries: 1. C4 spinous process fracture 2. Vertical C7 fracture 3. Bilateral C6-7 facet fractures/subluxation 4. Age indeterminate minimal endplate fractures of T2 and T10 5. Increased fat attenuation involving central mesentary - increased from 06/03/2021 exam - unlikely related to trauma, correlation with serial abdominal exams recommended to exclude subtle mesenteric injury Mr. Henderson was immobilized in a cervical collar and kept on bedrest precautions until evaluated by neurosurgery. Following review of his MRI imaging, neurosurgery ultimately recommended non-operativetreatment. He was fitted for a LOGISTICS PROGRAM MANAGER brace to be worn at all times and upright x-ray imaging remainedstable. He would require 2-week outpatient follow-up with his treating neurosurgery for re-evaluation of his injuries. He was assessed by physical and occupational therapy who recommended home PT/OT at discharge. With regards to his questionable abdominal/mesenteric findings, his serial abdominal exams remainedbenign and white blood cell count remained within normal limits. This finding was determined likelyto be chronic and not patient care representative of a mesenteric injury. He tolerated a regular diet without complications. Mr. Henderson was found to have hyponatremia (low blood sodium levels) which were also determined to be chronic based on review of previous medical documentation. His hyponatremia is likely the result of longstanding alcohol abuse. He was placed on daily salt tablets. His blood sodium was 120 on 07/08/2022 and he remained asymptomatic. Given his admitted alcohol abuse, he was also assessed by social work. Mr. Henderson would be discharged home in stable condition on 07/08/2022 with home healthcare services. He would require close outpatient follow-up visits with his treating neurosurgeon and established primary care provider to review his hospital admission, imaging and for continued long-term medical care. Patient's fall was related to getting intoxicated which he has a Hx of alcohol abuse. Patient not ready to quit at this point but has not drank more then 1-2 12 oz cans of beer a day since being home. Feels he can handle it this way. Patient has a f/u with neur surgery tomorrow. Patient only c/o pain in the neck. Patient with Hx of chronic low sodium secondary to his drinking and in the hospital was on salt tabs and sent home on tabs to take for additional 5 days. He was to see renal on 07/09/2022 and forgot about the appt and needs to reschedule. ROS: Lungs: no shortness of breath, wheezing, cough or hemoptysis. Heart: no chest pain, Palpitations or edema. PHYSICAL EXAMINATION BP 124/84 (BP Site: Left Arm, BP Position: Sitting, BP Cuff Size: Regular Adult) Pulse 78 Resp 16 Wt 75.3 kg (166 lb) BMI 23.82 kg/m GENERAL: well appearing, alert, in no acute distress HEART: Regular rate and rhythm. No murmur, rubs or gallops. LUNGS: clear to auscultation, no wheezing, rhonchi, or crackles ABDOMEN: soft, non-tender, non-distended, no masses or organomegaly EXTREMITIES: no lower extremity edema. No skin discoloration. Very dry A/P ASSESSMENT/PLAN: 1. Closed fracture of cervical vertebra, unspecified cervical vertebral level, initial encounter ([facility]) - ICD9: 805.00, ICD10: S12.9XXA (primary diagnosis) - management per neurosurgery and has appt tomorrow. 2. Hypertension, essential - ICD9: 401.9, ICD10: I10 - good control - Continue current medication(s) - Recommended regular aerobic exercise. - Recommend home blood pressure monitoring, to bring results in on next visit - Goal of BP <130/80 3. Hyponatremia - ICD9: 276.1, ICD10: E87.1 - most likely chronic and secondary to his drinking. - check BMP - patient to reschedule appt with renal 4. Alcohol abuse - ICD9: 305.00, ICD10: F10.10 - discussed abstinence but patient not ready at this time. Keep f/u in November. Fredrick Feliciano MD [facility] Miscellaneous Notes* Telephone Encounter - Denis Monteiro RN - 07/15/2022 1:40 PM EST The patient called into the office and requested a refill of oxycodone. I spoke with Dr. Estrada who were okay with taking over prescription. Upon refilling medication, received notification that this medication was currently pending from his PCP, Dr. Feliciano. I instructed him to contact their office as it seemed they were already in the process of prescribing this. Asked him to call me back once he contacted them if he was unable to prescribe. He understood and was appreciative. Denis D Sferra, RN documented in this encounterK[facility]-2023 Miscellaneous Notes* OT EVALUATION/REASSESSMENT/RECERT - Nayana Thomson OT/L - 07/15/2022 1:20 PM EST SITUATION: OT evaluation daughter present during today's visit. patient reports the following since the last homecare visit:medications/allergies--no changes, no fall. BACKGROUND: Primary Diagnoses (reason for Home Care): Fracture of neck, unspecified, initial encounter Unspecified displaced fracture of seventh cervical vert ebra, subsequent encounter for fracture with routinehealing Subluxation of C6/C7 cervical vertebrae, initial encounter Any one of the comorbidities from the list below may have a deleterious effect on the primary home care diagnosis. ACTIVE PROBLEM LIST Hypertension, Essential Alcohol Abuse Ex-Smoker Elevated Lfts Fatty Liver, Alcoholic Medicare Annual Wellness Visit, Subsequent Benign Prostatic Hyperplas ia Without Lower UrinaryTract Symptoms Prostate Disorder Anemia Elevated Alkaline Phosphatase Level Advance Directive Discussed With Patient Hyponatremia Fall Down Steps Closed Fracture of Spinous Process of Cervical Vertebra (Hcc) Closed Displaced Fracture of Seventh Cervical Vertebra With Routine Healing Subluxation of C6/C7 Cervical Vertebrae, Initial Encounter Ground-Level Fall SPECIFIC ORDERS: - Precautions/Activity Restrictions: Brace, Fall Risk - LOGISTICS PROGRAM MANAGER brace to be worn at all times until cleared by your neurosurgeon. - SPECIALIST FOLLOW-UP: Dr. Estrada (Neurosurgery): 2 weeks ASSESSMENT: [facility]. Reviewed and explained homecare services. Plan of care, goals and visit frequency developed, reviewed, and agreed upon with patient and/or caregiver. Current Discharge Plan:remain in community with/without caregiver support. Anticipate discharge by 07/15/22 RECOMMENDATION: See intervention summary for intervention/education details. documented in this encounterK[facility]02-13-2023 Miscellaneous Notes* PT ROUTINE/REASSESSMENT/RECERT/CASE MGMT - Amie Nixon, PT - 07/13/2022 1:46 PM EST SITUATION: only patient present during today's visit. patient reports the following since the last homecare visit: medications/allergies--no changes, no fall. patient reports he is a little better. States that he only has 2 pain pills left and does not know who to call. Advised that he should call his primary. Background :Primary Diagnoses (reason for Home Care): Fracture of neck, unspecified, initial encounter Unspecified displaced fracture of seventh cervical vert ebra, subsequent encounter for fracture with routine healing Subluxation of C6/C7 cervical vertebrae, initial encounter Any one of the comorbidities from the list below may have a deleterious effect on the primary home care diagnosis. ACTIVE PROBLEM LIST Hypertension, Essential Alcohol Abuse Ex-Smoker Elevated Lfts Fatty Liver, Alcoholic Medicare Annual Wellness Visit, Subsequent Benign Prostatic Hyperplas ia Without Lower Urinary Tract Symptoms Prostate Disorder Anemia Elevated Alkaline Phosphatase Level Advance Directive Discussed With Patient Hyponatremia Fall Down Steps Closed Fracture of Spinous Process of Cervical Vertebra (Hcc) Closed Displaced Fracture of Seventh Cervical Vertebra With Routine Healing Subluxation of C6/C7 Cervical Vertebrae, Initial Encounter Ground-Level Fall SPECIFIC ORDERS: - Precautio ns/Activity Restrictions: Brace, Fall Risk - LOGISTICS PROGRAM MANAGER brace to be worn at all times until cleared by your neurosurgeon. - SPECIALIST FOLLOW-UP: Dr. Estrada (Neurosurgery): 2 weeks ASSESSMENT: Focus of visit Intro standing ther ex to test his standing tolerance/endurance. Pt tolerated approx7 min before that pain was too bad and he needed to sit and rest with his back/neck supported by the recliner . Use of the RUE seemed to be what triggered pain the most . Plan of care, goals, and visit frequency reviewed and agreed upon with patient and/or caregiver. Current Discharge Plan: independent with home exercise program Anticipate discharge by 07/31/22 RECOMMENDATION: Next visit to focus on ther ex, activity tolerance See intervention summary for intervention/education details. documented in this encounterK[facility]02-11-2023 Miscellaneous Notes* PT SOC/JR/FOLLOW UP/OTHER - Tami Josue, PT - 07/11/2022 12:36 PM EST SITUATION: daughter present during today's visit. patient reports alcohol was related to fall incident, statesheavy leather jacket made him lose his balance falling backwards on 13 steps; Used to drink a 12 pack of beer a day and since he's been home only 1-2 beers a day. knows he is not to bend, lift or twist. Wears neck brace all the time. Prior to fall, slept between bed and couch. Able to put neck brace on by himself Disciplines ordered: PT and OT Primary Diagnoses (reason for Home Care): Fracture of neck, unspecified, initial encounter Unspecified displaced fracture of seventh cervical vert ebra, subsequent encounter for fracture with routine healing Subluxation of C6/C7 cervical vertebrae, initial encounter Any one of the comorbidities from the list below may have a deleterious effect on the primary home care diagnosis. ACTIVE PROBLEM LIST Hypertension, Essential Alcohol Abuse Ex-Smoker Elevated Lfts Fatty Liver, Alcoholic Medicare Annual Wellness Visit, Subsequent Benign Prostatic Hyperplas ia Without Lower Urinary Tract Symptoms Prostate Disorder Anemia Elevated Alkaline Phosphatase Level Advance Directive Discussed With Patient Hyponatremia Fall Down Steps Closed Fracture of Spinous Process of Cervical Vertebra (Hcc) Closed Displaced Fracture of Seventh Cervical Vertebra With Routine Healing Subluxation of C6/C7 Cervical Vertebrae, Initial Encounter Ground-Level Fall SPECIFIC ORDERS: - Precautio ns/Activity Restrictions: Brace, Fall Risk - LOGISTICS PROGRAM MANAGER brace to be worn at all times until cleared by your neurosurgeon. - SPECIALIST FOLLOW-UP: Dr. Estrada (Neurosurgery): 2 weeks ASSESSMENT: [facility]. Reviewed and explained homecare services. Plan of care, goals, and visit frequency developed, reviewed, and agreed upon with patient and/or caregiver. Patient Goal: to get back to normal. be able to do for himself Patient will benefit from continued physical therapy to address the following deficits: balance, gait, endurance, transfers and stair negotiation. Current Discharge Plan: independent with home exercise program. Anticipate discharge by 07/31/22. RECOMMENDATION: freq 1w1, 2w1, 1w2 Next visit to focus on endurance/balance exercises to compensate for limited cervical ROM due to collar impacting vision; ensure consistency with safe mobility Agreeable to PT and OT; See intervention summary for intervention/education details. documented in this encounterK[facility]02-09-2023 Miscellaneous Notes* Telephone Encounter - Demarcus Allen - 07/09/2022 2:25 PM EST Called patient to schedule x-rays and follow up with Leah or Robin in 2 weeks. Patient's voicemailbox is not set up. Was unable to leave a voicemail. * Telephone Encounter - Demarcus Allen - 07/09/2022 2:25 PM EST ----- Message from Medina Treviño PA-C sent at 07/08/2022 3:37 PM EST ----- Regarding: pt appt Michelle Ruth to see SW in 2 wks with xr - ordered Dx: C7, T1, T2 fxs thx documented in this encounterK[facility]02-09-2023 History of Present illness Narrative* Rula Leong RN - 07/09/2022 2:07 PM EST TCM Home Visit Referral Source of Stratification: [facility] Admission Status: Discharged Readmission Risk Score: 20 LORIN Score: 13 Patient meets program referral criteria: No Patient does not qualify for High Risk TCM Home Visit program due to: Discharged home, does not meet program criteria Rula Leong RN July 09, 2022 2:07 PM TRANSITIONAL CARE MANAGEMENT (TCM) COMMUNITY MONITORING PROGRAM Provider Action/FYI: Neuro Surgery - pt has number and will call to schedule TCM 2.16. Lara Clements [facility] Pt requested [facility] is provided the following numbers if unable to reach pt Dtr Tami [phone] Son in law Angel [phone] Please note as requested Denies new or worsening symptoms Denies chest pain, sob, fever, chills States mild nausea and vomiting after taking sodium bicarbonate; tolerating Encouraged to notify provider if n/v worsens or persistent and to stay well hydrated Weaing a LOGISTICS PROGRAM MANAGER brace 21/12 Reviewed med adj; verbalized understanding to stop Maxide Eating and hydrating well Ambulates without assistive devices but has cane if needed Scheduled TCM apt Encouraged patient to contact provider for any new or worsening symptoms Denies further questions or concerns Transitions of Care Critical Issues: SPECIALIST FOLLOW-UP: Dr. Estrada (Neurosurgery): 2 weeks LABS AND PROCEDURES PENDING AT DISCHARGE: No pending results. SUMMARY: Pt discharged from [facility] on 07[facility]08[facility]22. Admitted for: Ground Level Fall Contact made with patient: Yes Hi my name is Rula Leong RN and I am calling [facility] the [facility] on behalf of your PCP,Fredrick Feliciano MD I understand you were recently in the hospital so I am calling to check in with you to ensure you are feeling well now that you're home. May I ask you a few questions related to your hospital stay and well-being? Yes Contact with patient post discharge, spoke to patient. Patient identified by name and . Do you feel your health is BETTER, WORSE, or the SAME since leaving the hospital? Better ACTION TAKEN: Patient indicated symptoms are better or same, no action required. Continue outreach. MEDICATIONS: Many patients have questions or concerns about their medications once they are home. Do you have any questions about taking your medications or which medication you should be on? No Do you need any medication refills at this time, including any of the medications you might take only when needed? No ACTION TAKEN: No action required For RNs or Pharmacy completing outreach ONLY, was a medication review completed? Med adjustments only, per patient preference. SOCIAL: We would like to make sure you have what you need so that your basics needs are met - including your personal safety, food, housing and medications. Would you like to speak with a social work automobile washer steam to help give you support for any of these needs? No It can be normal to feel anxious or down during a time like this. Would you like to talk to a mental health professional about how you have been feeling? No ACTION TAKEN: No action taken DISCHARGE INTRUCTIONS: Your discharge instructions / After Visit Summary (AVS) are important in guiding you through the recovery process. Do you have any questions related to your discharge instructions? No Do you have all the necessary equipment and supplies at home? Yes ACTION TAKEN: No action required I would like to help you schedule a hospital follow-up virtual or telephone visit with your PCP. This is a great way for you to connect with your provider to ensure you have safely transitioned home.If you are agreeable, I will send your request to a scheduler conveyor who will contact and assist you with that appointment. This will give you an opportunity to ask any questions or address any concerns youmay have with your PCP. Inform the patient that if they have any questions or concerns prior to that appointment, to call their PCP's office right away. ACTION TAKEN: No action required, patient already has an appointment scheduled. Your doctor would like us to remind you of the recommendations regarding the coronavirus (Covid19) outbreak: Avoid public places as much as possible. Avoid close contact (within 6 feet) with others you don t live with, especially if they are sick. Stay home if you are sick. Wash your hands regularly for at least 20 seconds with soap and water. Wear a cloth mask in public places to help reduce community spread. Do not go to your Doctor s office unless instructed to do so. For any non- emergency symptoms, call your Doctor s office to get instructions on how to manage (we might recommend a telephone or virtualvisit). For emergency symptoms, proceed to Emergency Department as usual but inform them of cough and fever symptoms JOHANN if present (or call on the way if possible). CHARLES Education Ordered -: No Rula Leong RN BSN Primary Care Transitional Tube Rebuilder [facility] documented in this encounterK[facility]02-08-2023 NoteHNO ID: [id number] Author: Anabella Jeffery RN Service: Care Management Author Type: Registered Nurse Type: Care Mgt Progress Note Filed: 07/08/2022 1:34 PM Note Text: CARE MANAGEMENT DISCHARGE NOTE SERVICE DATE: 07/08/2022 SERVICE TIME: 1:32 PM LOS: 2 days Admission Date: 07/06/2022 DISCHARGE ARRANGEMENT (list agency and phone number) Discharge Arrangement: Home with Home Health CAREGIVER ASSESSMENT: Caregiver is ready, willing and able to meet the patient's needs as recommended by the inter-professional team:: No Caregiver needed Patient's transition needs and plan for meeting these needs: [facility] TRANSPORTATION ARRANGEMENTS: Transportation Arrangements: Car ADDITIONAL CONTACT RESOURCES: Needs Prior to Discharge: Ready for Discharge Caregiver is ready, willing and able to meet the patient's needs as recommended by the inter-professional team:: No Caregiver needed Transportation Arrangements: Car Discharge orders in place, pt agreeable to home pt/ot, [facility] able to accept, home care order in place, pt's states he has transportation home, pt ready for discharge from care management standpoint SIGNATURE: Anabella Jeffery RN PATIENT NAME: Yaritza Henderson DATE: July 08, 2022 TIME: 1:32 PM PAGER/CONTACT #: [phone] [facility]23 NoteHNO ID: [id number] Author: Medina Treviño PA-C Service: Neurosurgery Author Type: Physician Traffic Chief Type: Progress Notes Filed: 07/08/2022 9:04 AM Note Text: Neurosurgery Progress Note SERVICE DATE: 07/08/2022 SUBJECTIVE: Naeon - pt likes current brace better than prior. Little discomfort. More irritated by the SCDs. Denies weakness or paresthesias. Anticipating working with therapy soon. Eating and voiding without issue. OBJECTIVE: Vitals: Temp (24hrs), Av.1 ?C (98.7 ?F), Min:36.9 ?C (98.4 ?F), Max:37.4 ?C (99.4 ?F) BP 158/85 Pulse 89 Temp 36.9 ?C (98.4 ?F) (Oral) Resp 18 Ht 177.8 cm (5' 10) Wt 83.5 kg (184 lb) SpO2 97% BMI 26.40 kg/m? O2 Therapy: Room Air IANDO: Date 07/07/22699 - 07/08/2265807/08/22699 - 07/09/22 0659 Shift 7833-4944 5731-9294 0207-4133 24 Hour Total 3895-0757 9243-4381 5749-1240 24 Hour Total INTAKE PO 220 220 PO 220 220 Shift Total 220 220 OUTPUT Urine 2026 239 2595 Void (ml) 1469 465 9485 Shift Total 9595 930 8289 Weight (kg) 83.5 83.5 83.5 83.5 83.5 83.5 83.5 83.5 MEDICATIONS Current Facility-Administered Medications Medication Dose Route Frequency sodium chloride 2 g tab(s) 2 g ORAL TID enoxaparin 30 mg injection (LOVENOX) 30 mg SUBCUTANEOUS q 12 HR LORazepam 2 mg (ATIVAN) 2 mg ORAL q 1 H PRN oxyCODONE IR 5 mg tab(s) (ROXICODONE) 5 mg ORAL q 6 H PRN lisinopril 40 mg tab(s) (ZESTRIL, PRINIVIL) 40 mg ORAL BID amLODIPine 10 mg tab(s) (NORVASC) 10 mg ORAL DAILY thiamine 100 mg tab(s) (VITAMIN B1) 100 mg ORAL DAILY cyanocobalamin 1,000 mcg (VITAMIN B-12) 1,000 mcg ORAL DAILY ondansetron 4 mg tab(s) (ZOFRAN) 4 mg ORAL q 6 H PRN Or ondansetron (PF) 4 mg injection (ZOFRAN) 4 mg INTRAVENOUS q 6 H PRN polyethylene glycol 3350 17 g packet (MIRALAX, GLYCOLAX) 17 g ORAL DAILY acetaminophen 975 mg tab(s) (TYLENOL) 975 mg ORAL q 6 H PRN Labs: Recent Labs 07/08/22 0400 07/07/22 0402 07/06/22 1031 NA 120* 124* 119* K -- 3.7 3.5* CHLOR 86* 90* 85* CO2 25 26 23 BUN 6* 9 8* CREAT 0.99 1.02 0.98 GLUC 100* 101* 111* ANION 9 8* 11 CA 8.8 8.4* 9.0 ALB 3.9 3.5* 4.0 AST -- 24 32 ALT -- 12 15 ALKPHOS 107 112 127* TBILI 0.7 1.2 1.3 WBC 4.29 7.62 9.19 HB 12.7* 12.2* 13.2 HCT 35.7* 34.3* 36.9* PLT 242 241 263 INR -- -- 1.0 Exam: GENERAL: Awake and alert; NAD; cooperative; pleasant NEURO: Orientedx3; speech clear and fluent; CORDERO; SILT STRENGTH: no deficits HEENT: Normocephalic; atraumatic LUNGS: Unlabored breathing NECK/BACK: LOGISTICS PROGRAM MANAGER on ASSESSMENT AND PLAN: 66 year old male fall down 13 stairs ETOH, found to have C4 SP fx, C7 vertical body fx and C6/C7 right facet fx with subluxation. MRI shows further T1,T2 subacute compression fxs - Neuro stable - intact - pain control - PT/OT assessment pending - brace present and uprights completed and reviewed - brace until f/u in 2 wks with repeated XR - will request Parts of this note may have been copied from one of my previous notes and remain pertinent. The documentation has been reviewed and edited as necessary to support the clinical decision making for today's visit. SIGNATURE: Medina Treviño PA-C PATIENT NAME: Yaritza Henderson DATE: July 08, 2022 TIME: 8:57 AM Pager: [phone] NoteHNO ID: [id number] Author: MICHAEL Chase Service: Care Management Author Type: Chick Room Supervisor Type: Care Mgt Initial Assessment Filed: 07/07/2022 6:51 PM Note Text: CARE MANAGEMENT: ASSESSMENT AND DISCHARGE PLAN SERVICE DATE: July 07, 2022 SERVICE TIME: 10:30 AM PRIMARY CARE PHYSICIAN: Fredrick Feliciano MD Primary Contact: Extended Emergency Contact Information Primary Emergency Contact: Екатерина Garcia Mobile Relation: Significant other ADMISSION STATUS: Inpatient Insurance Provider: [employer] [facility] [place] PRIOR TO DISCHARGE Needs Prior to Discharge: To Be Determined, OT/PT Evaluation POTENTIAL TRANSITION PLANS Home Based on clinical judgement, Care Management will address the following needs: Medical;Functional;Cognitive;Social Patient's perception of need for this admission: fall ADVANCE DIRECTIVES Current Advance Directive: None Hearing Dog Trainer Attempted to Assist with AD Completion: Yes Action: Education Provided MS/BEHAVIOR Baseline Mental Status Prior to this Illness what was the patient's Baseline Mental Status?: Alert AND Oriented Prior to this illness, has anyone described the patient having any of the following behaviors?: Not Applicable Relationship of the informant to the patient:: Self READMISSION Last Discharge Date: N/A Is this Within the Past 30 days? 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 scores in the EMR?: Yes Situation: fell down steps at home Any potential risks related to substance abuse and/or behavioral health?: No Based on clinical judgement, Care Management will address the following needs: Medical, Functional, Cognitive, Social CAREGIVER ASSESSMENT Caregiver is ready, willing and able to meet the patient's needs as recommended by the inter-professional team:: Yes Name of Caregiver: Екатерина Garcia (Significant other) Patient's transition needs and plan for meeting these needs: home with self care MEDICAL Medical Needs: Two or more chronic diseases Health Issues Impacting Discharge Plan: Newly diagnosed Newly Diagnosed: Patient with C4 spinous process fracture, C7 vertical body fracture and C6/C7 right facet fracture with subluxation. MRI shows further T1 T2 compression fractures Medication Adherance I am convinced of the importance of my prescription medication: 0 - Agree Completely I worry that my prescription medication will do more harm than good to me : 0 - Disagree Completely I feel financially burdened by my [id number] expenses for my prescription medication:: 0 - Disagree Completely Risk Score: 0 Patient is categorized as: Low risk < 2 SOCIAL Living Arrangements: Home Lives With: Alone Financial Resources: Retired Supportive Patient Contact:: Yes Is Patient Psychosocially Complex?: No Health Literacy How often do you need to have someone help you when you read instructions, pamphlets, or other written material from your doctor or pharmacy? : 1 - Never How confident are you filling out medical forms by yourself?: 1 - Extremely If Patient scores > 3 on either question, the following interventions were put into place:: Patient did not score > 3 on either question.;Gave Patient the opportunity to ask questions;Sit with Patient;Forms of communication used with patient and family;Use concrete and specific phrases, avoid medical jargon Food Insecurity: No Food Insecurity Worried About Running Out of Food in the Last Year: Never true Ran Out of Food in the Last Year: Never true Financial Resource Strain: Low Risk Difficulty of Paying Living Expenses: Not hard at all Transportation Needs: No Transportation Needs Lack of Transportation (Medical): No Lack of Transportation (Non-Medical): No Housing Stability: Low Risk Unable to Pay for Housing in the Last Year: No Number of Places Lived in the Last Year: 1 Unstable Housing in the Last Year: No BEHAVIORAL/COGNITIVE Psychosocial Psychosocial Needs: CAGE/Alcohol Assessment FUNCTIONAL How do you manage to accomplish the following: Independent: Ambulation;Bathe/Shower;Dress;Meals/Meal Prep;Going to the bathroom;Medication Management;Transportation to appointments/community Services/Needs//Equipment Equipment Prior to Admission (more content not included)...[facility]02-07-2023 NoteHNO ID: [id number] Author: Eliel Macedo MD Service: General Surgery Author Type: Resident Type: Progress Notes Filed: 07/07/2022 8:26 AM Note Text: Attestation signed by Gato Toscano MD at 07/07/2022 2:13 PM Attending Note I personally saw and examined the patient. I reviewed the resident's note. I agree with the resident's assessment and plan unless otherwise noted. Signature: Gato Toscano MD Date: 07/07/2022 Time: 2:13 PM Trauma Surgery Progress Note SERVICE DATE: 07/07/2022 Trauma Service Pager: For questions or concerns Mon-Fri 6a-5p please page [phone]. After 5pm and on Weekends and Holidays, please page [phone] if in ICU or [phone] if on RNF. SUBJECTIVE: NAEON. VSS. RA. Spine pain stable. OBJECTIVE: Vitals: Temp (24hrs), Av.9 ?C (98.4 ?F), Min:36.9 ?C (98.4 ?F), Max:36.9 ?C (98.4 ?F) BP 142/89 Pulse 81 Temp 36.9 ?C (98.4 ?F) Resp 20 Ht 177.8 cm (5' 10) Wt 83.5 kg (184 lb) SpO2 97% BMI 26.40 kg/m? O2 Therapy: Room Air IANDO: Date 07/06/22699 - 07/07/2265807/07/22699 - 07/08/22 0659 Shift [id number] 9765-6485 7684-2474 24 Hour Total 1494-7606 0481-1116 7922-9546 24 Hour Total INTAKE IV 500 500 Volume (mL) (NaCl 0.9% 500 mL iv bolus) 500 500 Shift Total 500 500 OUTPUT Shift Total Weight (kg) 83.5 83.5 83.5 83.5 83.5 83.5 83.5 83.5 MEDICATIONS: Current Facility-Administered Medications Medication Dose Route Frequency iv contrast (radiology procedure) INTRAVENOUS DIRECTED PRN iv contrast (radiology procedure) INTRAVENOUS DIRECTED PRN iv contrast (radiology procedure) INTRAVENOUS DIRECTED PRN And enteric contrast (radiology procedure) ORAL DIRECTED PRN lisinopril 40 mg tab(s) (ZESTRIL, PRINIVIL) 40 mg ORAL BID amLODIPine 10 mg tab(s) (NORVASC) 10 mg ORAL DAILY thiamine 100 mg tab(s) (VITAMIN B1) 100 mg ORAL DAILY cyanocobalamin 1,000 mcg tab(s) (VITAMIN B-12) 1,000 mcg ORAL DAILY NaCl 0.9% with 20 mEq/L KCl iv infusion 75 mL/hr INTRAVENOUS CONTINUOUS ondansetron 4 mg tab(s) (ZOFRAN) 4 mg ORAL q 6 H PRN Or ondansetron (PF) 4 mg injection (ZOFRAN) 4 mg INTRAVENOUS q 6 H PRN polyethylene glycol 3350 17 g packet (MIRALAX, GLYCOLAX) 17 g ORAL DAILY acetaminophen 975 mg tab(s) (TYLENOL) 975 mg ORAL q 6 H PRN Labs: Recent Labs 07/07/22 0402 07/06/22 1031 NA 124* 119* K 3.7 3.5* CHLOR 90* 85* CO2 26 23 BUN 9 8* CREAT 1.02 0.98 GLUC 101* 111* ANION 8* 11 CA 8.4* 9.0 ALB 3.5* 4.0 AST 24 32 ALT 12 15 ALKPHOS 112 127* TBILI 1.2 1.3 WBC 7.62 9.19 HB 12.2* 13.2 HCT 34.3* 36.9* PLT 241 263 INR -- 1.0 PHYSICAL EXAM: Genl: Appears age appropriate. No acute distress. Resting comfortably. Head/Face: Normocephalic. Atraumatic. Poor dentition with multiple missing teeth Eyes: EOMI. Sclera not icteric, not injected Neck: + Midline C-spine tenderness without stepoffs. Back: + midline thoracic tenderness without stepoffs or deformities. Back exam fairly limited secondary to spine precautions and lack of assistance turning patient. Resp: Lungs clear bilat. No wheezes. No rales. Breathing is non-labored on RA. No chest wall tenderness or crepitus. CVS: RRR. No murmur, rub, gallop. 2+ pulses at RA, DP, PT bilat. GI: Abdomen is soft, non-tender, not distended. Bowel sounds normoactive. No peritonitis MSK: CORDERO. Extremities without clubbing, cyanosis, edema. Normal ROM x 4. No gross deformities. Skin: Warm and dry. No lesions of concern. Not jaundiced. Neuro: AANDOx3. Strength, sensation, proprioception normal. GCS15. Psych: Normal mood. Normal affect. Appropriate insight into current situation. ASSESSMENT AND PLAN: Assessment Active Hospital Problems Diagnosis Date Noted Ground-level fall 07/06/2022 Alcohol abuse 04/25/2018 Priority: B Overview Note: 12 pck per day since around 2014 (maybe longer). As of 10/2020 6-12 a day Fall down steps 07/06/2022 Closed fracture of spinous process of cervical vertebra (HCC) 07/06/2022 Closed displaced fracture of seventh cervical vertebra with routine healing 07/06/2022 Subluxation of c6/C7 cervical vertebrae, initial encounter 07/06/2022 Hyponatremia 06/08/2022 Overview Note: Seeing nephrology- Dr. Garvin Assessment: 66 year old male s/p fall down multiple steps 07/04/2022 (Transfer from [facility]) Imaging performed: 07/06/2022 - CT HN (completed, CTA H/N, CT CAPTL Traumatic Inuries: C4 spinous process fracture Vertical C7 fracture Bilateral C6-7 facet fractures/subluxation Age indeterminate minimal endplate fractures of T2 and T10 Increased fat attenuation involving central mesentary - increased from 06/03/2021 exam - unlikely related to trauma, correlation with serial abdominal exams recommended to exclude subtle mesenteric injury Operations 1. None at this time (more content not included)...[facility]01-10-2023 Miscellaneous Notes* Telephone Encounter - Althea Peguero RN - 06/09/2022 8:42 AM EST Patient called and notified of results and providers instructions. Patient verbalizes understandingand will work on appointment with nephrology for low sodium. Althea Peguero RN * Telephone Encounter - Erum Castaneda PA-C - 06/09/2022 8:22 AM EST Let patient know that his sodium level is really low yet. I would like him to get scheduled with his kidney doctor again. Rest of his labs are wnl. [facility] Miscellaneous Notes* Telephone Encounter - Delia Weaver MA - 06/03/2022 12:50 PM EST Patient has been identified by name and date of : Yes Requested Prescriptions Pending Prescriptions Disp Refills thiamine (VITAMIN B1) 100 mg tablet 30 tablet 5 Sig: Take 1 tablet by mouth once daily. RX INSTRUCTIONS: Patient aware RX will be sent to pharmacy. No need to notify patient. Delia Weaver MA Jaquelin: 10/2021 Nov: 05/2022 Last refill: 07/2021 * Telephone Encounter - Darby Herrera - 06/03/2022 12:46 PM EST Patient has been identified by name and date of : Yes, Provider LEONEL Patient phones for refill(s): Requested Prescriptions Pending Prescriptions Disp Refills thiamine (VITAMIN B1) 100 mg tablet 30 tablet 5 Sig: Take 1 tablet by mouth once daily. Date of last office visit in primary care: 11/19/21 Last 2 Encounter Wt Readings: Date: Wt: 11/19/2021 79.4 kg (175 lb) 05/13/2021 80.7 kg (178 lb) Previous labs/tests for medication: Not applicable Please advise. Thank you. Darby Herrera [facility] Miscellaneous Notes* Telephone Encounter - Fredrick Feliciano MD - 05/18/2022 4:39 PM EST Noted. * Telephone Encounter - Kat Ludwig Pss - 05/18/2022 3:17 PM EST [employer] insurance calling inviting Dr. Feliciano to a phone round on 06/04/22 at 4 p to discuss patient' care plan. There is a Health care plan and care plan available through [email or web address] [phone] opt 3 documented [facility] Miscellaneous Notes* Telephone Encounter - Delia Weaver MA - 12/04/2021 8:50 AM EDT Spoke with patient and gave results and instructions. Patient voiced understanding. Patient will coming in for further labs. Also faxed orders and placed referral for Dr. Garvin. Delia Weaver MA * Telephone Encounter - Fredrick Feliciano MD - 12/03/2021 9:45 PM EDT Let patient know his PSA, CBC and lipid panel were ok. His GGT test, Ast and Alt were all ok but his alk phos is still elevated. I placed a order to checkfor primary biliary cirrhosis. He does not need to fast. Suspect ultimately this is related to his alcohol intake. His electrolyte panel shows elevated serum protein. Orders placed to work this up with blood and urine testing. His sodium is still low and his kidnies are showing reduced function. I have placed an order to see a kidney provider for eval (Dr. Garvin) [place] [id number] History of Past illness Narrative* Problem Noted Date Resolved Date Proteinuria 04/25/2018 11/19/2021 documented as of this encounter (statuses as of 12/04/2021) [address]26-2018 History of Past illness Narrative* Problem Noted Date Resolved Date Proteinuria 04/25/2018 11/19/2021 documented as of this encounter (statuses as of 05/18/2022) [address]26-2018 History of Past illness Narrative* Problem Noted Date Resolved Date Proteinuria 04/25/2018 11/19/2021 documented as of this encounter (statuses as of 06/05/2022) [address]26-2018 History of Past illness Narrative* Problem Noted Date Resolved Date Proteinuria 04/25/2018 11/19/2021 documented as of this encounter (statuses as of 06/09/2022) [address]26-2018 History of Past illness Narrative* Problem Noted Date Resolved Date Proteinuria 04/25/2018 11/19/2021 documented as of this encounter (statuses as of 07/08/2022) [address]26-2018 History of Past illness Narrative* Problem Noted Date Resolved Date Proteinuria 04/25/2018 11/19/2021 documented as of this encounter (statuses as of 07/09/2022) [address]26-2018 History of Past illness Narrative* Problem Noted Date Resolved Date Proteinuria 04/25/2018 11/19/2021 documented as of this encounter (statuses as of 07/12/2022) [address]26-2018 History of Past illness Narrative* Problem Noted Date Resolved Date Proteinuria 04/25/2018 11/19/2021 documented as of this encounter (statuses as of 07/14/2022) [address]26-2018 History of Past illness Narrative* Problem Noted Date Resolved Date Proteinuria 04/25/2018 11/19/2021 documented as of this encounter (statuses as of 07/15/2022) [address]26-2018 History of Past illness Narrative* Problem Noted Date Resolved Date Proteinuria 04/25/2018 11/19/2021 documented as of this encounter (statuses as of 07/16/2022) [address] History of Past illness Narrative* Problem Noted Date Resolved Date Proteinuria 04/25/2018 11/19/2021 documented as of this encounter (statuses as of 07/16/2022) [address]26-2018 History of Past illness Narrative* Problem Noted Date Resolved Date Proteinuria 04/25/2018 11/19/2021 documented as of this encounter (statuses as of 07/16/2022) [address]26-2018 History of Past illness Narrative* Problem Noted Date Resolved Date Proteinuria 04/25/2018 11/19/2021 documented as of this encounter (statuses as of 07/17/2022) [address]26-2018 History of Past illness Narrative* Problem Noted Date Resolved Date Proteinuria 04/25/2018 11/19/2021 documented as of this encounter (statuses as of 07/17/2022) [address]26-2018 History of Past illness Narrative* Problem Noted Date Resolved Date Proteinuria 04/25/2018 11/19/2021 documented as of this encounter (statuses as of 07/18/2022) [address]26-2018 History of Past illness Narrative* Problem Noted Date Resolved Date Proteinuria 04/25/2018 11/19/2021 documented as of this encounter (statuses as of 07/20/2022) [address]26-2018 History of Past illness Narrative* Problem Noted Date Resolved Date Proteinuria 04/25/2018 11/19/2021 documented as of this encounter (statuses as of 07/28/2022) [address]26-2018 History of Past illness Narrative* Problem Noted Date Resolved Date Proteinuria 04/25/2018 11/19/2021 documented as of this encounter (statuses as of 08/05/2022) [address]26-2018 History of Past illness Narrative* Problem Noted Date Resolved Date Proteinuria 04/25/2018 11/19/2021 documented as of this encounter (statuses as of 08/05/2022) [place] [address] History of Past illness Narrative* Problem Noted Date Resolved Date Proteinuria 04/25/2018 11/19/2021 documented as of this encounter (statuses as of 08/18/2022) [address]26-2018 History of Past illness Narrative* Problem Noted Date Resolved Date Proteinuria 04/25/2018 11/19/2021 documented as of this encounter (statuses as of 08/19/2022) [address]26-2018 History of Past illness Narrative* Problem Noted Date Resolved Date Proteinuria 04/25/2018 11/19/2021 documented as of this encounter (statuses as of 09/18/2022) [address]26-2018 History of Past illness Narrative* Problem Noted Date Resolved Date Proteinuria 04/25/2018 11/19/2021 documented as of this encounter (statuses as of 10/13/2022) [address]26-2018 History of Past illness Narrative* Problem Noted Date Resolved Date Proteinuria 04/25/2018 11/19/2021 documented as of this encounter (statuses as of 10/13/2022) [address]26-2018 History of Past illness Narrative* Problem Noted Date Resolved Date Proteinuria 04/25/2018 11/19/2021 documented as of this encounter (statuses as of 10/13/2022) [facility] Diagnosis Elevated alkaline phosphatase level- Primary Other nonspecific abnormal serum enzyme levels Elevated serum protein level Other nonspecific findings on examination of blood Hyponatremia Hyposmolality and/or hyponatremia Renal insufficiency Unspecified disorder of kidney and ureter [facility]* Diagnosis Alcohol abuse Alcohol abuse, unspecified [facility]* Diagnosis Closed displaced fracture of seventh cervical vertebra with routine healing, unspecified fracture morphology, subsequent encounter- Primary Compression fracture of T1 vertebra, sequela [facility] Diagnosis Closed fracture of cervical vertebra, unspecified cervical vertebral level, initial encounter ([facility])- Primary Hypertension, essential Unspecified essential hypertension Hyponatremia Hyposmolality and/or hyponatremia Alcohol abuse Alcohol abuse, unspecified [facility]* Diagnosis Renal insufficiency- Primary Unspecified disorder of kidney and ureter [facility] Diagnosis Spinal stenosis in cervical region- Primary Closed fracture of spinous process of cervical vertebra, subsequent encounter Closed fracture of first thoracic vertebra with routine healing, unspecified fracture morphology, subsequent encounter [facility]* Diagnosis Closed displaced fracture of seventh cervical vertebra with routine healing, unspecified fracture morphology, subsequent encounter Compression fracture of T1 vertebra, sequela [facility]* Diagnosis Closed nondisplaced fracture of seventh cervical vertebra, unspecified fracture morphology, initial encounter ([facility]) [facility]* Diagnosis Closed displaced fracture of seventh cervical vertebra with routine healing, unspecified fracture morphology, subsequent encounter- Primary Subluxation of C6-C7 cervical vertebrae, subsequent encounter Closed displaced fracture of fourth cervical vertebra with routine healing, unspecified fracture morphology, subsequent encounter Fall, in, on, steps, subsequent encounter Hyposmolality syndrome Hyposmolality and/or hyponatremia Alcohol abuse Alcohol abuse, unspecified Hypertension, essential Unspecified essential hypertension Alcoholic fatty liver Anemia, unspecified type Benign prostatic hyperplasia, unspecified whether lower urinary tract symptoms present Person living alone Personal history of fall [facility]* Diagnosis Spinal stenosis in cervical region- Primary Closed displaced fracture of seventh cervical vertebra with routine healing, unspecified fracture morphology, subsequent encounter Closed fracture of first thoracic vertebra with routine healing, unspecified fracture morphology, subsequent encounter [facility]* Diagnosis Closed fracture of spinous process of cervical vertebra, subsequent encounter Closed fracture of first thoracic vertebra with routine healing, unspecified fracture morphology, subsequent encounter [facility]* Diagnosis Spinal stenosis in cervical region- Primary Closed displaced fracture of seventh cervical vertebra with routine healing, unspecified fracture morphology, subsequent encounter [facility]* Diagnosis Closed displaced fracture of seventh cervical vertebra with routine healing, unspecified fracture morphology, subsequent encounter Spinal stenosis in cervical region Closed fracture of first thoracic vertebra with routine healing, unspecified fracture morphology, subsequent encounter [facility] Diagnosis Spinal stenosis in cervical region [facility]* Diagnosis Alcohol abuse- Primary Alcohol abuse, unspecified Folate deficiency Other B-complex deficiencies [facility]* Diagnosis PVD (peripheral vascular disease) (HCC) Peripheral vascular disease, unspecified [facility]* Diagnosis Acute bilateral low back pain without sciatica- Primary [facility]* Diagnosis Alcohol abuse Alcohol abuse, unspecified Bilateral leg edema Edema Diminished pulses in lower extremity Other symptoms involving cardiovascular system Ex-smoker Personal history of tobacco use, presenting hazards to health [facility]* Diagnosis Hypertension, essential Unspecified essential hypertension [facility]* Diagnosis Medicare annual wellness visit, subsequent- Primary Routine general medical examination at a health care facility Advance directive discussed with patient Other specified counseling Screening for depression Encounter for screening examination for other mental health and behavioral disorders Abnormal skin growth Alcohol abuse Alcohol abuse, unspecified Hyponatremia Hyposmolality and/or hyponatremia PVD (peripheral vascular disease) (HCC) Peripheral vascular disease, unspecified Hypertension, essential Unspecified essential hypertension Prostate disorder Unspecified disorder of prostate Folate deficiency Other B-complex deficiencies Fatty liver, alcoholic Alcoholic fatty liver [facility]* Diagnosis Elevated PSA- Primary Elevated prostate specific antigen (PSA) Alkaline phosphatase elevation Other nonspecific abnormal serum enzyme levels [facility]* Diagnosis Alkaline phosphatase elevation- Primary Other nonspecific abnormal serum enzyme levels Elevated PSA Elevated prostate specific antigen (PSA) [facility]* Diagnosis Alkaline phosphatase elevation Other nonspecific abnormal serum enzyme levels [facility] Diagnosis Acute bilateral low back pain without sciatica [facility]* Diagnosis Hypertension, essential- Primary Unspecified essential hypertension Anemia, unspecified type Folate deficiency Other B-complex deficiencies Elevated LFTs Other abnormal blood chemistry Hyponatremia Hyposmolality and/or hyponatremia Alcohol abuse Alcohol abuse, unspecified Fatty liver, alcoholic Alcoholic fatty liver [facility]* Diagnosis Alkaline phosphatase elevation- Primary Other nonspecific abnormal serum enzyme levels [facility]* Diagnosis Hypertension, essential Unspecified essential hypertension [facility]* Diagnosis Hypertension, essential- Primary Unspecified essential hypertension PVD (peripheral vascular disease) (HCC) Peripheral vascular disease, unspecified Alcohol abuse Alcohol abuse, unspecified Hyponatremia Hyposmolality and/or hyponatremia Orthostatic hypotension Alkaline phosphatase elevation Other nonspecific abnormal serum enzyme levels [facility]* Diagnosis Hypertension, essential- Primary Unspecified essential hypertension Orthostatic hypotension [facility]* Diagnosis Orthostatic hypotension- Primary Fall, initial encounter Hypertension, essential Unspecified essential hypertension Rib pain Chest pain, unspecified Hyponatremia Hyposmolality and/or hyponatremia Alcohol abuse Alcohol abuse, unspecified Fatty liver, alcoholic Alcoholic fatty liver Folate deficiency Other B-complex deficiencies Prostate disorder Unspecified disorder of prostate Anemia, unspecified type Contusion of right elbow, initial encounter [facility]* Diagnosis Fall, initial encounter Rib pain Chest pain, unspecified documented in this encounter [facility] Plan of care note* Visit Details Visit Type -PT ROUTINE Discipline -Physical Therapy Problems Problem Description Start Date Status Goals Interve ntions Medication Education Disciplines: Skilled Services 07/11/2022 Active 1 goal linked to scheduled/document ed intervention 1 goal intervention scheduled/document ed in this visit Sepsis Disciplines: Skilled Services 07/11/2022 Active 1 goal linked to scheduled/document ed intervention 1 goal intervention scheduled/document ed in this visit Physician Specific Parameters Disciplines: Skilled Services 07/11/2022 Active 1 goal linked to scheduled/document ed intervention 1 goal intervention scheduled/document ed in this visit Risk for Falls Disciplines: Skilled Services 07/11/2022 Active 1 goal linked to scheduled/document ed intervention 1 goal intervention scheduled/document ed in this visit Pain Disciplines: Skilled Services 07/11/2022 Active 1 goal linked to scheduled/document ed intervention 1 goal intervention scheduled/document ed in this visit High Risk Medications Disciplines: Skilled Services 07/11/2022 Active 1 goal linked to scheduled/document ed intervention 1 goal intervention scheduled/document ed in this visit PT Impaired muscle performance and/or ROM Disciplines: PT 07/11/2022 Active 1 goal linked to scheduled/document ed intervention 1 goal intervention scheduled/document ed in this visit PT Impaired mobility Disciplines: PT 07/11/2022 Active 1 goal linked to scheduled/document ed intervention 1 goal intervention scheduled/document ed in this visit PT Impaired gait Disciplines: PT 07/11/2022 Active 2 goals linked to scheduled/document ed interventions 2 goal interventions scheduled/document ed in this visit PT Orthopedic Condition Disciplines: PT 07/11/2022 Active 1 goal linked to scheduled/document ed intervention 1 goal intervention scheduled/document ed in this visit PT Learning Assessment Disciplines: PT 07/11/2022 Active 1 goal linked to scheduled/document ed intervention 1 goal intervention scheduled/document ed in this visit Goals Goal Associated Problem Outcome Goal Met? Visit Notes Patient/caregiver will demonstrate ability to obtain, store, identify and administer ordered medications, keep accurate medication list in home, and adhere to medication schedule Description: Patient/caregiver will demonstrate ability to obtain, store, identify and administer ordered medications, keep accurate medication list in home, and adhere to medication schedule by 09/08/22 Medication Education No Patient/caregiver will be able to identify and report symptoms of sepsis Description: Patient/caregiver will be able to identify signs/symptoms of sepsis infection and will verbalize actions to take if suspected by 09/08/22 Sepsis No Patient to maintain parameters within physician-specified ranges throughout certification period Physician Specific Parameters No Manage Risk for falls Description: Patient/caregiver will verbalize knowledge of individualized fall prevention strategies by 09/08/22 Risk for Falls No Manage Pain Description: Patient/caregiver will verbalize knowledge and understanding of appropriate techniques to control pain, including pain medication and non-pharmacological techniques. Patient will verbalize or demonstrate an acceptable level of pain as evidenced by a pain score of <6/10 and improvement in ability to perform activities of daily living to be achieved by 09/08/22 Pain No Patient/caregiver will teach back high risk medication side effect and precaution education High Risk Medications No Improved Muscle Performance and/or ROM Description: LTG: Patient will demonstrate improved muscle performance to meet functional goals as evidenced by ability to tolerate 10 minutes of standing activity, to be achieved by 07/31/22 LTG: Patient and/or caregiver will verbalize/demonstrate independence with home exercise program, to improve functional mobility, to be achieved by 07/31/22. PT Impaired muscle performance and/or ROM No Improved Transfers Description: STG: Patient will demonstrate safe transfers to/from bed, chair and toilet independently, to be achieved by 07/17/22. PT Impaired mobility No Improved Stair Climbing Description: LTG: Patient will demonstrate improved stair negotiation as evidenced by ascend/descend 15 steps with railing independently, to safely exit home, to be achieved by 07/31/22. PT Impaired gait No Improved Gait Description: LTG: Patient will demonstrate improved gait ability as evidenced by ambulation 200 feet with no device independently, to return to safe household and community ambulation, in order to return to [facility], to be achieved by 07/31/22 PT Impaired gait No Manage Orthopedic Condition Description: Improve patient and/or caregiver understanding of post surgical and/or non-surgical orthopedic intervention management as evidenced by patient and/or caregiver able to verbalize, demonstrate, and teach back instruction, to be achieved by 07/31/22 PT Orthopedic Condition No Demonstrate understanding of education Description: Patient and/or caregiver will understand educational instruction to be achieved by 07/31/22 PT Learning Assessment No Interventions Intervention Associated Problem/Goal Status Variance Visit Notes Medication Education Description: Evaluate/instruct patient/caregiver on obtaining, storing, identifying and administering ordered medications as well as keeping accurate medication list in the home and adhereing to medication schedule Problem:Medication Education Goal:Patient/caregive r will demonstrate ability to obtain, store, identify and administer ordered medications, keep accurate medication list in home, and adhere to medication schedule Completed Patient instructed on importance of keeping accurate medication list in home and adhering to medication schedule. Risk of Sepsis Description: Patient is at risk for sepsis. Monitor closely for s/s of sepsis. Problem:Sepsis Goal:Patient/caregive r will be able to identify and report symptoms of sepsis Completed SPO2 Description: Notify Dr. Feliciano if pulse ox is <92% at rest. Problem:Physician Specific Parameters Goal:Patient to maintain parameters within physician-specified ranges throughout certification period Completed Instruct on individual fall risk factors and strategies to prevent falls and injuries caused by falls. Problem:Risk for Falls Goal:Manage Risk for falls Completed PT: Patient instructed on Eliminating Environmental Hazards: Keep pathways clear, Remove unsafe rugs and Move furniture from pathways Instruct on pain and instruct on strategies to control pain Problem:Pain Goal:Manage Pain Completed patient instructed on techniques to control pain including Pharmacological measures and Non-Pharmacological measures; rest and positioning/elevation. Opioids- educated on high risk medication Problem:High Risk Medications Goal:Patient/caregive r will teach back high risk medication side effect and precaution education Completed patient educated on taking medication(s) as prescribed by provider. Do not stop medication or alter doses without speaking with your provider. Discuss medication effectiveness or side effect concerns with your provider and home care team. Only take opioids as prescribed, do not share your medications, and take proper precautions in storing and properly disposing of opioids once no longer needed. Possible side effects of opioid medication including sedation, decreased rate of breathing, and constipation. Report over sedation to prescribing provider and practice deep breathing techniques every hour while awake. Prevent constipation by increasing water and fiber intake, increasing activity as tolerated, and use stool softener(s) as prescribed. Physical Therapy Therapeutic Exercises Problem:PT Impaired muscle performance and/or ROM Goal:Improved Muscle Performance and/or ROM Completed patient instructed on strengthening exercises including STANDING : HEEL RAISES, TOE RAISES , KNEE FLEX, HIP EXT, HIP FLEX, HIP ABD X 10 with verbal cues for technique . patient instructed to perform home exercise program daily. Physical Therapy Transfer Training Problem:PT Impaired mobility Goal:Improved Transfers Completed Transfer training and instruction to patient on safe transfers to and from chair with stand by assist and verbal cues for technique . Physical Therapy Stair Training Problem:PT Impaired gait Goal:Improved Stair Climbing Completed Stair training and instruction to patient on safe stair climbing, ascend/descend 16 steps, with railing with supervision and verbal cues foracing step ups x 10 each leg with single hand support Physical Therapy Gait Training Problem:PT Impaired gait Goal:Improved Gait Completed Gait training and instruction to patient on safe ambulation with no device for 40' x 3 feet with supervision, with verbal cues for corrections of gait deviations including pacing . Instruct on orthopedic precautions and weight bearing restrictions Description: Orthopedic precautions including Pt to wear cervical collar at all times Problem:PT Orthopedic Condition Goal:Manage Orthopedic Condition Completed patient instructed on orthopedic precautions. Instruct and educate on knowledge deficits Problem:PT Learning Assessment Goal:Demonstrate understanding of education Completed patient verbalize and/or demonstrate understanding of physical therapy education including orthopedic condition management, pain management and functional activity. Education methods include: verbal cues. Further education required to improve knowledge and compliance with pain management, fall prevention strategies, home safety, functional activity and home exercise program. [facility] Visit Details Visit Type -OT EVAL Discipline -Occupational Therapy Problems Problem Description Start Date Status Goals Interve ntions OT Referral Disciplines: Skilled Services 07/11/2022 Resolved on 07/15/2022 1 goal linked to scheduled/documen michael intervention 1 goal intervention scheduled/document ed in this visit Physician Specific Parameters Disciplines: Skilled Services 07/11/2022 Active 1 goal linked to scheduled/documen michael intervention 1 goal intervention scheduled/document ed in this visit Risk for Falls Disciplines: Skilled Services 07/11/2022 Active 1 goal linked to scheduled/documen michael intervention 1 goal intervention scheduled/document ed in this visit Pain Disciplines: Skilled Services 07/11/2022 Active 1 goal linked to scheduled/documen michael intervention 1 goal intervention scheduled/document ed in this visit Discharge Disciplines: Skilled Services 07/11/2022 Active 1 goal linked to scheduled/documen michael intervention 1 goal intervention scheduled/document ed in this visit OT Learning Assessment Disciplines: OT 07/15/2022 Resolved on 07/15/2022 1 goal linked to scheduled/documen michael intervention 1 goal intervention scheduled/document ed in this visit OT Functional Transfers Disciplines: OT 07/15/2022 Resolved on 07/15/2022 1 goal linked to scheduled/documen michael intervention 1 goal intervention scheduled/document ed in this visit Goals Goal Associated Problem Outcome Goal Met? Visit Notes Patient will be referred to additional discipline as needed OT Referral Completed Yes OT evaluation completed Patient to maintain parameters within physician-specified ranges throughout certification period Physician Specific Parameters No Manage Risk for falls Description: Patient/caregiver will verbalize knowledge of individualized fall prevention strategies by 09/08/22 Risk for Falls No Manage Pain Description: Patient/caregiver will verbalize knowledge and understanding of appropriate techniques to control pain, including pain medication and non-pharmacological techniques. Patient will verbalize or demonstrate an acceptable level of pain as evidenced by a pain score of <6/10 and improvement in ability to perform activities of daily living to be achieved by 09/08/22 Pain No Manage discharge planning Description: Patient/caregiver will verbalize understanding of ongoing discharge plan provided related to disease management, arrangements for outpatient and/or community services, obtaining medications, supplies, and DME, as needed throughout certification period. Discharge No Demonstrate understanding of education Description: Patient and/or caregiver will understand educational instruction to be achieved by 07/15/22. OT Learning Assessment Completed Yes goal met Improved Functional Transfers Description: patient will demonstrate safe transfers to/from shower/tub with supervision assistance and no verbal cues without use of DME to be achieved by 07/15/22. OT Functional Transfers Completed Yes goal met Interventions Intervention Associated Problem/Goal Status Variance Visit Notes OT evaluation and treatment Description: Evaluate and treat for the assessment of functional deficits and establishment of appropriate interventions and education to address: I/ADL training and DME/adaptive equipment recommendations. Problem:OT Referral Goal:Patient will be referred to additional discipline as needed Completed SPO2 Description: Notify Dr. Feliciano if pulse ox is <92% at rest. Problem:Physician Specific Parameters Goal:Patient to maintain parameters within physician-specified ranges throughout certification period Completed Instruct on individual fall risk factors and strategies to prevent falls and injuries caused by falls. Problem:Risk for Falls Goal:Manage Risk for falls Completed OT: Patient instructed on Managing Impaired Functional Mobility: Caregiver to provide assist with: superv for shower level bathing transfers asst with steps Instruct on pain and instruct on strategies to control pain Problem:Pain Goal:Manage Pain Completed patient instructed on techniques to control pain including Pharmacological measures and Non-Pharmacological measures; rest and positioning/elevation. Instruct on ongoing discharge plan Problem:Discharge Goal:Manage discharge planning Completed Ongoing Discharge plan: Discharge plan discussed with patient including dc of ot on evaluation with pt in full agreement Instruct and educate on knowledge deficits Problem:OT Learning Assessment Goal:Demonstrate understanding of education Completed Education methods include: verbal cues. Patient/Caregiver require further education to improve knowledge and compliance with fall prevention strategies, orthopedic condition management, pain management, post surgical precautions, home safety and functional transfers. educated on use shower chair/bench for safety with shower level bathing and transfers and need for superv for all shower level transfers/bathing Transfer Training Problem:OT Functional Transfers Goal:Improved Functional Transfers Completed Instruct patient on safe transfers and proper techniques including hand placement to perform to and from shower/tub with superv assistance and verbal cues for safety. recommended on the following adaptive equipment/durable medical equipment:shower chair and bath mat. [facility] Visit Details Visit Type -[employer] Discipline -Physical Therapy Problems Problem Description Start Date Status Goals Interve ntions Medication Education Disciplines: Skilled Services 07/11/2022 Active 1 goal linked to scheduled/document ed intervention 1 goal intervention scheduled/document ed in this visit Sepsis Disciplines: Skilled Services 07/11/2022 Active 1 goal linked to scheduled/document ed intervention 1 goal intervention scheduled/document ed in this visit Physician Specific Parameters Disciplines: Skilled Services 07/11/2022 Active 1 goal linked to scheduled/document ed intervention 1 goal intervention scheduled/document ed in this visit Risk for Falls Disciplines: Skilled Services 07/11/2022 Active 1 goal linked to scheduled/document ed intervention 1 goal intervention scheduled/document ed in this visit Pain Disciplines: Skilled Services 07/11/2022 Active 1 goal linked to scheduled/document ed intervention 1 goal intervention scheduled/document ed in this visit High Risk Medications Disciplines: Skilled Services 07/11/2022 Active 1 goal linked to scheduled/document ed intervention 1 goal intervention scheduled/document ed in this visit Discharge Disciplines: Skilled Services 07/11/2022 Active 1 goal linked to scheduled/document ed intervention 1 goal intervention scheduled/document ed in this visit PT Impaired muscle performance and/or ROM Disciplines: PT 07/11/2022 Active 1 goal linked to scheduled/document ed intervention 1 goal intervention scheduled/document ed in this visit PT Impaired mobility Disciplines: PT 07/11/2022 Active 1 goal linked to scheduled/document ed intervention 1 goal intervention scheduled/document ed in this visit PT Impaired gait Disciplines: PT 07/11/2022 Active 2 goals linked to scheduled/document ed interventions 2 goal interventions scheduled/document ed in this visit PT Impaired balance Disciplines: PT 07/11/2022 Active 1 goal linked to scheduled/document ed intervention 1 goal intervention scheduled/document ed in this visit PT Orthopedic Condition Disciplines: PT 07/11/2022 Active 1 goal linked to scheduled/document ed intervention 1 goal intervention scheduled/document ed in this visit PT Learning Assessment Disciplines: PT 07/11/2022 Active 1 goal linked to scheduled/document ed intervention 1 goal intervention scheduled/document ed in this visit Goals Goal Associated Problem Outcome Goal Met? Visit Notes Patient/caregiver will demonstrate ability to obtain, store, identify and administer ordered medications, keep accurate medication list in home, and adhere to medication schedule Description: Patient/caregiver will demonstrate ability to obtain, store, identify and administer ordered medications, keep accurate medication list in home, and adhere to medication schedule by 09/08/22 Medication Education No Patient/caregiver will be able to identify and report symptoms of sepsis Description: Patient/caregiver will be able to identify signs/symptoms of sepsis infection and will verbalize actions to take if suspected by 09/08/22 Sepsis No Patient to maintain parameters within physician-specified ranges throughout certification period Physician Specific Parameters No Manage Risk for falls Description: Patient/caregiver will verbalize knowledge of individualized fall prevention strategies by 09/08/22 Risk for Falls No Manage Pain Description: Patient/caregiver will verbalize knowledge and understanding of appropriate techniques to control pain, including pain medication and non-pharmacological techniques. Patient will verbalize or demonstrate an acceptable level of pain as evidenced by a pain score of <6/10 and improvement in ability to perform activities of daily living to be achieved by 09/08/22 Pain No Patient/caregiver will teach back high risk medication side effect and precaution education High Risk Medications No Manage discharge planning Description: Patient/caregiver will verbalize understanding of ongoing discharge plan provided related to disease management, arrangements for outpatient and/or community services, obtaining medications, supplies, and DME, as needed throughout certification period. Discharge No Improved Muscle Performance and/or ROM Description: LTG: Patient will demonstrate improved muscle performance to meet functional goals as evidenced by ability to tolerate 10 minutes of standing activity, to be achieved by 07/31/22 LTG: Patient and/or caregiver will verbalize/demonstrate independence with home exercise program, to improve functional mobility, to be achieved by 07/31/22. PT Impaired muscle performance and/or ROM No Improved Transfers Description: STG: Patient will demonstrate safe transfers to/from bed, chair and toilet independently, to be achieved by 07/17/22. PT Impaired mobility No Improved Stair Climbing Description: LTG: Patient will demonstrate improved stair negotiation as evidenced by ascend/descend 15 steps with railing independently, to safely exit home, to be achieved by 07/31/22. PT Impaired gait No Improved Gait Description: LTG: Patient will demonstrate improved gait ability as evidenced by ambulation 200 feet with no device independently, to return to safe household and community ambulation, in order to return to [facility], to be achieved by 07/31/22 PT Impaired gait No Improved Balance Description: LTG: Patient will demonstrate improved standing balance to meet functional goals as evidenced by TUG score of <14 to be achieved by 07/31/22 PT Impaired balance No Manage Orthopedic Condition Description: Improve patient and/or caregiver understanding of post surgical and/or non-surgical orthopedic intervention management as evidenced by patient and/or caregiver able to verbalize, demonstrate, and teach back instruction, to be achieved by 07/31/22 PT Orthopedic Condition No Demonstrate understanding of education Description: Patient and/or caregiver will understand educational instruction to be achieved by 07/31/22 PT Learning Assessment No Interventions Intervention Associated Problem/Goal Status Variance Visit Notes Medication Education Description: Evaluate/instruct patient/caregiver on obtaining, storing, identifying and administering ordered medications as well as keeping accurate medication list in the home and adhereing to medication schedule Problem:Medication Education Goal:Patient/caregive r will demonstrate ability to obtain, store, identify and administer ordered medications, keep accurate medication list in home, and adhere to medication schedule Completed Patient instructed on importance of keeping accurate medication list in home, adhering to medication schedule and how to order refills. Risk of Sepsis Description: Patient is at risk for sepsis. Monitor closely for s/s of sepsis. Problem:Sepsis Goal:Patient/caregive r will be able to identify and report symptoms of sepsis Completed SPO2 Description: Notify Dr. Feliciano if pulse ox is <92% at rest. Problem:Physician Specific Parameters Goal:Patient to maintain parameters within physician-specified ranges throughout certification period Completed Instruct on individual fall risk factors and strategies to prevent falls and injuries caused by falls. Problem:Risk for Falls Goal:Manage Risk for falls Completed PT: Patient instructed on Eliminating Environmental Hazards: Keep pathways clear Instruct on pain and instruct on strategies to control pain Problem:Pain Goal:Manage Pain Completed patient instructed on techniques to control pain including Pharmacological measures and Non-Pharmacological measures; rest. Opioids- educated on high risk medication Problem:High Risk Medications Goal:Patient/caregive r will teach back high risk medication side effect and precaution education Completed patient educated on taking medication(s) as prescribed by provider. Do not stop medication or alter doses without speaking with your provider. Discuss medication effectiveness or side effect concerns with your provider and home care team. Only take opioids as prescribed, do not share your medications, and take proper precautions in storing and properly disposing of opioids once no longer needed. Possible side effects of opioid medication including sedation, decreased rate of breathing, and constipation. Report over sedation to prescribing provider and practice deep breathing techniques every hour while awake. Prevent constipation by increasing water and fiber intake, increasing activity as tolerated, and use stool softener(s) as prescribed. Instruct on ongoing discharge plan Problem:Discharge Goal:Manage discharge planning Completed Ongoing Discharge plan: Discharge plan discussed with patient including frequency and duration for home PT and plan for transition to: live independently at home without ongoing services. Physical Therapy Therapeutic Exercises Problem:PT Impaired muscle performance and/or ROM Goal:Improved Muscle Performance and/or ROM Completed patient instructed on strengthening exercises including standing heel toe raises, hams string curls, hip abd and flexion x's 15 each. seated laq x's 15. with verbal cues for proper pace. patient instructed to perform home exercise program twice a day which included above exercises. Physical Therapy Transfer Training Problem:PT Impaired mobility Goal:Improved Transfers Completed Transfer training and instruction to patient on safe transfers to and from chair with independent Physical Therapy Stair Training Problem:PT Impaired gait Goal:Improved Stair Climbing Completed Stair training and instruction to patient on safe stair climbing, ascend/descend 17 steps, with railing and with wall support with stand by assist and verbal cues for pacing for safety. Patiet missed last step and landed hard on feet on floor and philipp body. Physical Therapy Gait Training Problem:PT Impaired gait Goal:Improved Gait Completed Gait training and instruction to patient on safe ambulation with no device for 3x's 20 feet with supervision, with verbal cues for corrections of gait deviations including pace for safety and energy conservation. Physical Therapy Balance Training Problem:PT Impaired balance Goal:Improved Balance Completed Developed, implemented, and instructed patient on standing balance exercises including toe taps x's 10 each. Instruct on orthopedic precautions and weight bearing restrictions Description: Orthopedic precautions including Pt to wear cervical collar at all times Problem:PT Orthopedic Condition Goal:Manage Orthopedic Condition Completed patient instructed on orthopedic precautions. Instruct and educate on knowledge deficits Problem:PT Learning Assessment Goal:Demonstrate understanding of education Completed patient verbalize and/or demonstrate understanding of physical therapy education including orthopedic condition management, pain management and home exercise program. Education methods include: verbal cues. Further education required to improve knowledge and compliance with home exercise program. [facility] Visit Details Visit Type -PT AGENCY DC W Jing BLANCAS Discipline -Physical Therapy Problems Problem Description Start Date Status Goals Interve ntions Medication Education Disciplines: Skilled Services 07/11/2022 Resolved on 07/28/2022 1 goal linked to scheduled/document ed intervention 1 goal intervention scheduled/document ed in this visit Sepsis Disciplines: Skilled Services 07/11/2022 Resolved on 07/28/2022 1 goal linked to scheduled/document ed intervention 1 goal intervention scheduled/document ed in this visit Physician Specific Parameters Disciplines: Skilled Services 07/11/2022 Resolved on 07/28/2022 1 goal linked to scheduled/document ed intervention 1 goal intervention scheduled/document ed in this visit Risk for Falls Disciplines: Skilled Services 07/11/2022 Resolved on 07/28/2022 1 goal linked to scheduled/document ed intervention 1 goal intervention scheduled/document ed in this visit Pain Disciplines: Skilled Services 07/11/2022 Resolved on 07/28/2022 1 goal linked to scheduled/document ed intervention 1 goal intervention scheduled/document ed in this visit Nutrition/Hydrat ion Disciplines: Skilled Services 07/11/2022 Resolved on 07/28/2022 1 goal linked to scheduled/document ed intervention 1 goal intervention scheduled/document ed in this visit High Risk Medications Disciplines: Skilled Services 07/11/2022 Resolved on 07/28/2022 1 goal linked to scheduled/document ed intervention 1 goal intervention scheduled/document ed in this visit Discharge Disciplines: Skilled Services 07/11/2022 Resolved on 07/28/2022 1 goal linked to scheduled/document ed intervention 1 goal intervention scheduled/document ed in this visit Advance Directives Disciplines: Skilled Services 07/11/2022 Resolved on 07/28/2022 1 goal linked to scheduled/document ed intervention PT Impaired muscle performance and/or ROM Disciplines: PT 07/11/2022 Resolved on 07/28/2022 1 goal linked to scheduled/document ed intervention 1 goal intervention scheduled/document ed in this visit PT Impaired mobility Disciplines: PT 07/11/2022 Resolved on 07/28/2022 1 goal linked to scheduled/document ed intervention 1 goal intervention scheduled/document ed in this visit PT Impaired gait Disciplines: PT 07/11/2022 Resolved on 07/28/2022 2 goals linked to scheduled/document ed interventions 2 goal interventions scheduled/document ed in this visit PT Impaired balance Disciplines: PT 07/11/2022 Resolved on 07/28/2022 1 goal linked to scheduled/document ed intervention 1 goal intervention scheduled/document ed in this visit PT Orthopedic Condition Disciplines: PT 07/11/2022 Resolved on 07/28/2022 1 goal linked to scheduled/document ed intervention 1 goal intervention scheduled/document ed in this visit PT Learning Assessment Disciplines: PT 07/11/2022 Resolved on 07/28/2022 1 goal linked to scheduled/document ed intervention 1 goal intervention scheduled/document ed in this visit Goals Goal Associated Problem Outcome Goal Met? Visit Notes Patient/caregiver will demonstrate ability to obtain, store, identify and administer ordered medications, keep accurate medication list in home, and adhere to medication schedule Description: Patient/caregiver will demonstrate ability to obtain, store, identify and administer ordered medications, keep accurate medication list in home, and adhere to medication schedule by 09/08/22 Medication Education Completed Yes Patient/caregiver will be able to identify and report symptoms of sepsis Description: Patient/caregiver will be able to identify signs/symptoms of sepsis infection and will verbalize actions to take if suspected by 09/08/22 Sepsis Completed Yes Patient to maintain parameters within physician-specified ranges throughout certification period Physician Specific Parameters Completed Yes Manage Risk for falls Description: Patient/caregiver will verbalize knowledge of individualized fall prevention strategies by 09/08/22 Risk for Falls Completed Yes Manage Pain Description: Patient/caregiver will verbalize knowledge and understanding of appropriate techniques to control pain, including pain medication and non-pharmacological techniques. Patient will verbalize or demonstrate an acceptable level of pain as evidenced by a pain score of <6/10 and improvement in ability to perform activities of daily living to be achieved by 09/08/22 Pain Completed Yes Manage Nutrition/Hydration Description: Patient/caregiver will verbalize/demonstrate knowledge of prescribed diet and/or healthy nutrition to be achieved by 09/08/22 Nutrition/Hydration Completed Yes Patient/caregiver will teach back high risk medication side effect and precaution education High Risk Medications Completed Yes Manage discharge planning Description: Patient/caregiver will verbalize understanding of ongoing discharge plan provided related to disease management, arrangements for outpatient and/or community services, obtaining medications, supplies, and DME, as needed throughout certification period. Discharge Completed Yes Patient/caregiver will make healthcare providers aware of and any changes to Advance Directives throughout certification period Advance Directives Completed Yes Improved Muscle Performance and/or ROM Description: LTG: Patient will demonstrate improved muscle performance to meet functional goals as evidenced by ability to tolerate 10 minutes of standing activity, to be achieved by 07/31/22 LTG: Patient and/or caregiver will verbalize/demonstrate independence with home exercise program, to improve functional mobility, to be achieved by 07/31/22. PT Impaired muscle performance and/or ROM Completed Yes Improved Transfers Description: STG: Patient will demonstrate safe transfers to/from bed, chair and toilet independently, to be achieved by 07/17/22. PT Impaired mobility Completed Yes Improved Stair Climbing Description: LTG: Patient will demonstrate improved stair negotiation as evidenced by ascend/descend 15 steps with railing independently, to safely exit home, to be achieved by 07/31/22. PT Impaired gait Completed Yes Improved Gait Description: LTG: Patient will demonstrate improved gait ability as evidenced by ambulation 200 feet with no device independently, to return to safe household and community ambulation, in order to return to PLF, to be achieved by 07/31/22 PT Impaired gait Completed Yes Improved Balance Description: LTG: Patient will demonstrate improved standing balance to meet functional goals as evidenced by TUG score of <14 to be achieved by 07/31/22 PT Impaired balance Completed Yes Manage Orthopedic Condition Description: Improve patient and/or caregiver understanding of post surgical and/or non-surgical orthopedic intervention management as evidenced by patient and/or caregiver able to verbalize, demonstrate, and teach back instruction, to be achieved by 07/31/22 PT Orthopedic Condition Completed Yes Demonstrate understanding of education Description: Patient and/or caregiver will understand educational instruction to be achieved by 07/31/22 PT Learning Assessment Completed Yes Interventions Intervention Associated Problem/Goal Status Variance Visit Notes Medication Education Description: Evaluate/instruct patient/caregiver on obtaining, storing, identifying and administering ordered medications as well as keeping accurate medication list in the home and adhereing to medication schedule Problem:Medication Education Goal:Patient/caregive r will demonstrate ability to obtain, store, identify and administer ordered medications, keep accurate medication list in home, and adhere to medication schedule Completed Patient instructed on importance of keeping accurate medication list in home and adhering to medication schedule. Risk of Sepsis Description: Patient is at risk for sepsis. Monitor closely for s/s of sepsis. Problem:Sepsis Goal:Patient/caregive r will be able to identify and report symptoms of sepsis Completed SPO2 Description: Notify Dr. Feliciano if pulse ox is <92% at rest. Problem:Physician Specific Parameters Goal:Patient to maintain parameters within physician-specified ranges throughout certification period Completed Instruct on individual fall risk factors and strategies to prevent falls and injuries caused by falls. Problem:Risk for Falls Goal:Manage Risk for falls Completed PT: Patient instructed on Eliminating Environmental Hazards: Keep pathways clear, Remove unsafe rugs and Move furniture from pathways Instruct on pain and instruct on strategies to control pain Problem:Pain Goal:Manage Pain Completed patient instructed on techniques to control pain including Pharmacological measures and Non-Pharmacological measures; rest and positioning/elevation. Define patient s appetite/hydration status and implement strategies to improve compliance with prescribed diet and/or healthy nutrition. Problem:Nutrition/Hyd ration Goal:Manage Nutrition/Hydration Completed reinforced patient on implementing strategies to comply with healthy nutrition and adequate hydration Opioids- educated on high risk medication Problem:High Risk Medications Goal:Patient/caregive r will teach back high risk medication side effect and precaution education Completed patient educated on taking medication(s) as prescribed by provider. Do not stop medication or alter doses without speaking with your provider. Discuss medication effectiveness or side effect concerns with your provider and home care team. Only take opioids as prescribed, do not share your medications, and take proper precautions in storing and properly disposing of opioids once no longer needed. Possible side effects of opioid medication including sedation, decreased rate of breathing, and constipation. Report over sedation to prescribing provider and practice deep breathing techniques every hour while awake. Prevent constipation by increasing water and fiber intake, increasing activity as tolerated, and use stool softener(s) as prescribed. Instruct on final discharge plan and deliver discharge instructions Problem:Discharge Goal:Manage discharge planning Completed Delivered Discharge plan: Discharge plan discussed with patient for plan for transition to: live independently at home without ongoing services Physical Therapy Therapeutic Exercises Problem:PT Impaired muscle performance and/or ROM Goal:Improved Muscle Performance and/or ROM Completed patient instructed on strengthening exercises including standing heel toe raises, hip abd and flexion, hamstrinf curls and mini sits x's 15 each. laq x's 15 with verbal cues for upright posture. patient instructed to perform home exercise program twice a day which included above exercises Physical Therapy Transfer Training Problem:PT Impaired mobility Goal:Improved Transfers Completed CECIL transfers with safe/proper technique Physical Therapy Stair Training Problem:PT Impaired gait Goal:Improved Stair Climbing Completed up and down 1 fligth indep with rail - recip pattern Physical Therapy Gait Training Problem:PT Impaired gait Goal:Improved Gait Completed Imdep amb with no ad with steady recip pattern and no deviation s Physical Therapy Balance Training Problem:PT Impaired balance Goal:Improved Balance Completed pt demonstrates improved dynamic standing balance as evidenced by a tug of 14 Instruct on orthopedic precautions and weight bearing restrictions Description: Orthopedic precautions including Pt to wear cervical collar at all times Problem:PT Orthopedic Condition Goal:Manage Orthopedic Condition Completed patient instructed on orthopedic precautions. Instruct and educate on knowledge deficits Problem:PT Learning Assessment Goal:Demonstrate understanding of education Completed patient verbalize and/or demonstrate understanding of physical therapy education including pain management, fall prevention strategies and home safety. Education methods include: verbal cues. documented in this encounter [facility] for referral (narrative)* Diagnostic Procedure Only (Routine) - Pending Review Specialty Diagnoses / Procedures Referred By Leticia t Referred To Contact XR IMAGING Diagnoses Compression fracture of T1 vertebra, sequela Procedures XR THORACIC LIMITED 2V AP/LAT RADEX SPINE THORACIC 2 VIEWS Medina Treviño PA-C [address] [place] [address] Xr Imaging Referral ID Status Reason Start Date Expiration Date Visits Requested Visits Authorized [id number] Pending Review Auto-Generat ed Referral 07/08/2022 08/07/2023 1 1 * Diagnostic Procedure Only (Routine) - Pending Review Specialty Diagnoses / Procedures Referred By Contac t Referred To Contact XR IMAGING Diagnoses Closed displaced fracture of seventh cervical vertebra with routine healing, unspecified fracture morphology, subsequent encounter Procedures XR CERV GENERAL 2V AP/LAT RADEX SPINE CERVICAL 2 OR 3 VIEWS Medina Treviño PA-C [address] [place] [address] Xr Imaging Referral ID Status Reason Start Date Expiration Date Visits Requested Visits Authorized [id number] Pending Review Auto-Generat ed Referral 07/08/2022 08/07/[address] [facility] for referral (narrative)* Diagnostic Procedure Only (Routine) - Authorized Specialty Diagnoses / Procedures Referred By Contac t Referred To Contact XR IMAGING Diagnoses Closed fracture of first thoracic vertebra with routine healing, unspecified fracture morphology, subsequent encounter Procedures XR THORACIC LIMITED 2V AP/LAT RADEX SPINE THORACIC 2 VIEWS Leah Blair, STORY TELLER.MULTIMEDIA ASSISTANT [address] [place] [address] Xr Imaging Referral ID Status Reason Start Date Expiration Date Visits Requested Visits Authorized [id number] Authorized Auto-Generat ed Referral 07/17/2022 08/16/2023 1 1 * Diagnostic Procedure Only (Routine) - Authorized Specialty Diagnoses / Procedures Referred By Contac t Referred To Contact XR IMAGING Diagnoses Closed fracture of spinous process of cervical vertebra, subsequent encounter Procedures XR CERV GENERAL 2V AP/LAT RADEX SPINE CERVICAL 2 OR 3 VIEWS Leah Blair, STORY TELLER.MULTIMEDIA ASSISTANT [address] [facility] [place] [address] Xr Imaging Referral ID Status Reason Start Date Expiration Date Visits Requested Visits Authorized [id number] Authorized Auto-Generat ed Referral 07/17/2022 08/16/[address] [facility] for referral (narrative)* Diagnostic Procedure Only (Routine) - Closed Specialty Diagnoses / Procedures Referred By Contac t Referred To Contact XR IMAGING Diagnoses Compression fracture of T1 vertebra, sequela Procedures XR THORACIC LIMITED 2V AP/LAT RADEX SPINE THORACIC 2 VIEWS Medina Treviño PA-C [address] [facility] [place] [address] Xr Imaging Referral ID Status Reason Start Date Expiration Date V isits Requested Visits Authorized [id number] Closed Auto-Generate d Referral 07/08/2022 08/07/2023 1 1 * Diagnostic Procedure Only (Routine) - Closed Specialty Diagnoses / Procedures Referred By Contac t Referred To Contact XR IMAGING Diagnoses Closed displaced fracture of seventh cervical vertebra with routine healing, unspecified fracture morphology, subsequent encounter Procedures XR CERV GENERAL 2V AP/LAT RADEX SPINE CERVICAL 2 OR 3 VIEWS Medina Treviño PA-C [address] [facility] [place] [address] Xr Imaging Referral ID Status Reason Start Date Expiration Date V isits Requested Visits Authorized [id number] Closed Auto-Generate d Referral 07/08/2022 08/07/[address] [facility] for referral (narrative)* Diagnostic Procedure Only (Routine) - Closed Specialty Diagnoses / Procedures Referred By Contac t Referred To Contact XR IMAGING Diagnoses Closed fracture of first thoracic vertebra with routine healing, unspecified fracture morphology, subsequent encounter Procedures XR THORACIC LIMITED 2V AP/LAT RADEX SPINE THORACIC 2 VIEWS Leah Blair, ZAKI.MULTIMEDIA ASSISTANT [address] [place] [address] Xr Imaging Referral ID Status Reason Start Date Expiration Date V isits Requested Visits Authorized [id number] Closed Auto-Generate d Referral 07/17/2022 08/16/2023 1 1 * Diagnostic Procedure Only (Routine) - Closed Specialty Diagnoses / Procedures Referred By Contac t Referred To Contact XR IMAGING Diagnoses Closed fracture of spinous process of cervical vertebra, subsequent encounter Procedures XR CERV GENERAL 2V AP/LAT RADEX SPINE CERVICAL 2 OR 3 VIEWS Leah Blair APRN.MULTIMEDIA ASSISTANT [address] [place] [address] Xr Imaging Referral ID Status Reason Start Date Expiration Date V isits Requested Visits Authorized [id number] Closed Auto-Generate d Referral 07/17/2022 08/16/[address] [facility] for referral (narrative)* Diagnostic Procedure Only (Routine) - Closed Specialty Diagnoses / Procedures Referred By Contac t Referred To Contact XR IMAGING Diagnoses Spinal stenosis in cervical region Procedures XR CERV OTHER 4V AP/LAT/FLX/EXT RADEX SPINE CERVICAL 4 OR 5 VIEWS Ivania Estrada I, MD [address] [place] [address] Xr Imaging Referral ID Status Reason Start Date Expiration Date V isits Requested Visits Authorized [id number] Closed Auto-Generate d Referral 10/12/2022 11/11/[address] [facility] for referral (narrative)* Diagnostic Procedure Only (Routine) - Closed Specialty Diagnoses / Procedures Referred By Contac t Referred To Contact XR IMAGING Diagnoses Spinal stenosis in cervical region Procedures XR CERV OTHER 4V AP/LAT/FLX/EXT RADEX SPINE CERVICAL 4 OR 5 VIEWS Ivania Estrada I, MD [address] [place] [address] Xr Imaging Referral ID Status Reason Start Date Expiration Date V isits Requested Visits Authorized [id number] Closed Auto-Generate d Referral 10/12/2022 11/11/[address] [facility] for referral (narrative)* Diagnostic Procedure Only (Routine) - New Request Specialty Diagnoses / Procedures Referred By Contac t Referred To Contact US IMAGING Diagnoses Alkaline phosphatase elevation Procedures US ABD RIGHT UPPER QUADRANT US ABDOMINAL REAL TIME W/IMAGE LIMITED Erum Castaneda PA-C [address] [place] [address] [place] [address] Referral ID Status Reason Start Date Expiration Date Visits Requested Visits Authorized [id number] New Request Auto-Generat ed Referral 01/06/2024 02/04/[address] [facility] for referral (narrative)* Diagnostic Procedure Only (Routine) - Closed Specialty Diagnoses / Procedures Referred By Contac t Referred To Contact US IMAGING Diagnoses Alkaline phosphatase elevation Procedures US ABD RIGHT UPPER QUADRANT US ABDOMINAL REAL TIME W/IMAGE LIMITED Erum Castaneda PA-C [address] [place] [address] [place] [address] Referral ID Status Reason Start Date Expiration Date V isits Requested Visits Authorized [id number] Closed Auto-Generate d Referral 01/07/2024 05/30/[address] [facility] for referral (narrative)* Diagnostic Procedure Only (Urgent) - Closed Specialty Diagnoses / Procedures Referred By Contac t Referred To Contact XR IMAGING Diagnoses Acute bilateral low back pain without sciatica Procedures XR LUMBAR LIMITED 2V AP/LAT RADEX SPINE LUMBOSACRAL 2/3 VIEWS Karol Hope APRN.MULTIMEDIA ASSISTANT [address] [place] [address] [place] [address] Referral ID Status Reason Start Date Expiration Date V isits Requested Visits Authorized [id number] Closed Auto-Generate d Referral 04/03/2023 05/02/2024 1 1 * Diagnostic Procedure Only (Urgent) - Closed Specialty Diagnoses / Procedures Referred By Contac t Referred To Contact XR IMAGING Diagnoses Acute bilateral low back pain without sciatica Procedures XR THORACIC LIMITED 2V AP/LAT RADEX SPINE THORACIC 2 VIEWS Karol Hope APRN.MULTIMEDIA ASSISTANT [address] [place] [address] [place] [address] Referral ID Status Reason Start Date Expiration Date V isits Requested Visits Authorized [id number] Closed Auto-Generate d Referral 04/03/2023 05/02/[address] [facility] for visit Narrative* Diagnostic Procedure Only (Routine) - Closed Specialty Diagnoses / Procedures Referred By Contac t Referred To Contact XR IMAGING Diagnoses Closed displaced fracture of seventh cervical vertebra with routine healing, unspecified fracture morphology, subsequent encounter Procedures XR CERV GENERAL 2V AP/LAT RADEX SPINE CERVICAL 2 OR 3 VIEWS Medina Treviño, KYLAH [address] [place] [address] Xr Imaging Referral ID Status Reason Start Date Expiration Date V isits Requested Visits Authorized [id number] Closed Auto-Generate d Referral 07/08/2022 08/07/[address] [facility] for visit Narrative* Diagnostic Procedure Only (Routine) - Closed Specialty Diagnoses / Procedures Referred By Contac t Referred To Contact XR IMAGING Diagnoses Closed fracture of first thoracic vertebra with routine healing, unspecified fracture morphology, subsequent encounter Procedures XR THORACIC LIMITED 2V AP/LAT RADEX SPINE THORACIC 2 VIEWS Leah Blair, STORY TELLER.MULTIMEDIA ASSISTANT [address] [place] [address] Xr Imaging Referral ID Status Reason Start Date Expiration Date V isits Requested Visits Authorized [id number] Closed Auto-Generate d Referral 07/17/2022 08/16/[address] [facility] for visit Narrative* Diagnostic Procedure Only (Routine) - Closed Specialty Diagnoses / Procedures Referred By Contac t Referred To Contact XR IMAGING Diagnoses Spinal stenosis in cervical region Procedures XR CERV OTHER 4V AP/LAT/FLX/EXT RADEX SPINE CERVICAL 4 OR 5 VIEWS Ivania Estrada I, [address] [place] [address] Xr Imaging Referral ID Status Reason Start Date Expiration Date V isits Requested Visits Authorized [id number] Closed Auto-Generate d Referral 10/12/2022 11/11/[address] [facility] for visit Narrative* Diagnostic Procedure Only (Urgent) - Closed Specialty Diagnoses / Procedures Referred By Contac t Referred To Contact XR IMAGING Diagnoses Acute bilateral low back pain without sciatica Procedures XR LUMBAR LIMITED 2V AP/LAT RADEX SPINE LUMBOSACRAL 2/3 VIEWS Karol Hope, STORY TELLER.MULTIMEDIA ASSISTANT [address] [place] [address] [place] [id number] Referral ID Status Reason Start Date Expiration Date V isits Requested Visits Authorized [id number] Closed Auto-Generate d Referral 04/03/2023 05/02/[address] [facility] for visit Narrative* Diagnostic Procedure Only (Routine) - Closed Specialty Diagnoses / Procedures Referred By Contac t Referred To Contact XR IMAGING Diagnoses Fall, initial encounter Rib pain Procedures XR RIBS/CHEST 3V AP RIB/OBLS/CXR RIGHT RADEX RIBS UNI W/POSTEROANT CH MINIMUM 3 VIEWS Erum Castaneda PA-C [address] [place] [address] Phone: tel: fax: [place] [id number] Referral ID Status Reason Start Date Expiration Date V isits Requested Visits Authorized [id number] Closed Auto-Generate d Referral 01/18/2025 02/17/2026 1 1 [facility] Reason for Referral Specialty Diagnoses / Procedures Referred By Contac t Referred To Contact Nephrology Diagnoses Hyponatremia Renal insufficiency Procedures CONSULT TO NEPHROLOGY OFFICE/OUTPATIENT NEW HIGH MDM 60-74 MINUTES Fredrick Feliciano MD [address] [place] [address] Referral ID Status Reason Start Date Expiration Date Visits Requested Visits Authorized [id number] Pending Review PCP Requested Referral 12/03/2021 12/03/2022 1 1 Specialty Diagnoses / Procedures Referred By Contac t Referred To Contact CT IMAGING Diagnoses Closed fracture of first thoracic vertebra with routine healing, unspecified fracture morphology, subsequent encounter Procedures CT THORACIC SPINE WO IVCON CT THORACIC SPINE W/O CONTRAST MATERIAL Leah Blair, STORY TELLER.MULTIMEDIA ASSISTANT [address] [place] [address] Ct Imaging Referral ID Status Reason Start Date Expiration Date Visits Requested Visits Authorized [id number] Authorized Auto-Generat ed Referral 08/18/2022 09/17/2023 1 1 Specialty Diagnoses / Procedures Referred By Contac t Referred To Contact CT IMAGING Diagnoses Closed displaced fracture of seventh cervical vertebra with routine healing, unspecified fracture morphology, subsequent encounter Spinal stenosis in cervical region Procedures CT CERVICAL SPINE WO IVCON CT CERVICAL SPINE W/O CONTRAST MATERIAL Leah Blair, STORY TELLER.MULTIMEDIA ASSISTANT [address] [place] [address] Ct Imaging Referral ID Status Reason Start Date Expiration Date Visits Requested Visits Authorized [id number] Authorized Auto-Generat ed Referral 08/18/2022 09/17/2023 1 1 Referral ID Status Reason Start Date Expiration Date V isits Requested Visits Authorized [id number] Closed Auto-Generate d Referral 08/18/2022 09/17/2023 1 1 Referral ID Status Reason Start Date Expiration Date V isits Requested Visits Authorized [id number] Closed Auto-Generate d Referral 08/18/2022 09/17/2023 1 1 Specialty Diagnoses / Procedures Referred By Contac t Referred To Contact Vascular Surgery Diagnoses PVD (peripheral vascular disease) (HCC) Procedures CONSULT TO VASCULAR SURGERY OFFICE/OUTPATIENT [facility] MDM 60-74 MINUTES Fredrick Feliciano MD [address] [place] [address] Referral ID Status Reason Start Date Expiration Date Visits Requested Visits Authorized [id number] Pending Review PCP Requested Referral 01/01/2023 01/01/2024 1 1 Specialty Diagnoses / Procedures Referred By Contac t Referred To Contact Karol Hope APRN.MULTIMEDIA ASSISTANT [address] [place] [address] Referral ID Status Reason Start Date Expiration Date V isits Requested Visits Authorized [id number] Pending Review 1 1 Specialty Diagnoses / Procedures Referred By Contac t Referred To Contact XR IMAGING Diagnoses Acute bilateral low back pain without sciatica Procedures XR LUMBAR LIMITED 2V AP/LAT RADEX SPINE LUMBOSACRAL 2/3 VIEWS Karol Hope APRN.MULTIMEDIA ASSISTANT [address] [place] [address] [place] [address] Referral ID Status Reason Start Date Expiration Date Visits Requested Visits Authorized [id number] Pending Review Auto-Generat ed Referral 04/03/2023 05/02/2024 1 1 Specialty Diagnoses / Procedures Referred By Contac t Referred To Contact XR IMAGING Diagnoses Acute bilateral low back pain without sciatica Procedures XR THORACIC LIMITED 2V AP/LAT RADEX SPINE THORACIC 2 VIEWS Karol Hope, ZAKI.MULTIMEDIA ASSISTANT [address] [place] [address] [place] [address] Referral ID Status Reason Start Date Expiration Date Visits Requested Visits Authorized [id number] Pending Review Auto-Generat ed Referral 04/03/2023 05/02/2024 1 1 Specialty Diagnoses / Procedures Referred By Contac t Referred To Contact CT IMAGING Diagnoses Alcohol abuse Bilateral leg edema Diminished pulses in lower extremity Ex-smoker Procedures CTA ABD/PEL LOWER EXTREM WO/W IVCON CTA ABDL AORTA&BI ILIOFEM W/CONTRAST&POSTP Fredrick Feliciano MD [address] [place] [address] [place] [address] Referral ID Status Reason Start Date Expiration Date V isits Requested Visits Authorized [id number] Closed Auto-Generate d Referral 12/16/2022 01/15/2024 1 1 Specialty Diagnoses / Procedures Referred By Contac t Referred To Contact Dermatology Diagnoses Abnormal skin growth Procedures CONSULT TO DERMATOLOGY Erum Castaneda PA-C [address] [place] [address] Referral ID Status Reason Start Date Expiration Date Visits Requested Visits Authorized [id number] Ref Not Required PCP Requested Referral 12/27/2023 12/26/2024 1 1 Advance Directives No Advanced Directives Records FoundLatest Code Status on File Code Status Date Activated Date Inactivated Comments Full Code 07/11/2022 1:49 PM Latest Code Status on File Code Status Date Activated Date Inactivated Comments Full Code 07/11/2022 1:49 PM Latest Code Status on File Code Status Date Activated Date Inactivated Comments Full Code 07/11/2022 1:49 PM Latest Code Status on File Code Status Date Activated Date Inactivated Comments Full Code 07/11/2022 1:49 PM Date Activated Date Inactivated Comments 07/11/2022 1:49 PM Date Activated Date Inactivated Comments 07/11/2022 1:49 PM Summary Purpose Family History No Family History Records FoundNo Family History Records FoundNo Family History Records Found Additional Source Comments Source Comments (unrecognize d section and content) In the event this informatio n is protected by the Federal Confidentiality of Alcohol and Drug Abuse Patient Records regulations: The Federal rules restrict any use of the information to criminally investigate or prosecute any alcohol or drug abuse patient.[facility] the event this information is protected by the Federal Confidentiality of Alcohol and Drug Abuse Patient Records regulations: The Federal rules restrict any use of the information to criminally investigate or prosecute any alcohol or drug abuse patient.[facility]In the event this information is protected by the Federal Confidentiality of Alcohol and Drug Abuse Patient Records regulations: The Federal rules restrict any use of the information to criminally investigate or prosecute any alcohol or drug abuse patient.[facility] SpringfieldIn the event this information is protected by the Federal Confidentiality of Alcohol and Drug Abuse Patient Records regulations: The Federal rules restrict any use of the information to criminally investigate or prosecute any alcohol or drug abuse patient.[facility]In the event this information is protected by the Federal Confidentiality of Alcohol and Drug Abuse Patient Records regulations: The Federal rules restrict any use of the information to criminally investigate or prosecute any alcohol or drug abuse patient.[facility]In the event this information is protected by the Federal Confidentiality of Alcohol and Drug Abuse Patient Records regulations: The Federal rules restrict any use of the information to criminally investigate or prosecute any alcohol or drug abuse patient.[facility] SpringfieldIn the event this information is protected by the Federal Confidentiality of Alcohol and Drug Abuse Patient Records regulations: The Federal rules restrict any use of the information to criminally investigate or prosecute any alcohol or drug abuse patient.[facility]In the event this information is protected by the Federal Confidentiality of Alcohol and Drug Abuse Patient Records regulations: The Federal rules restrict any use of the information to criminally investigate or prosecute any alcohol or drug abuse patient.[facility]In the event this information is protected by the Federal Confidentiality of Alcohol and Drug Abuse Patient Records regulations: The Federal rules restrict any use of the information to criminally investigate or prosecute any alcohol or drug abuse patient.[facility] SpringfieldIn the event this information is protected by the Federal Confidentiality of Alcohol and Drug Abuse Patient Records regulations: The Federal rules restrict any use of the information to criminally investigate or prosecute any alcohol or drug abuse patient.[facility]In the event this information is protected by the Federal Confidentiality of Alcohol and Drug Abuse Patient Records regulations: The Federal rules restrict any use of the information to criminally investigate or prosecute any alcohol or drug abuse patient.[facility]In the event this information is protected by the Federal Confidentiality of Alcohol and Drug Abuse Patient Records regulations: The Federal rules restrict any use of the information to criminally investigate or prosecute any alcohol or drug abuse patient.[facility] SpringfieldIn the event this information is protected by the Federal Confidentiality of Alcohol and Drug Abuse Patient Records regulations: The Federal rules restrict any use of the information to criminally investigate or prosecute any alcohol or drug abuse patient.[facility]In the event this information is protected by the Federal Confidentiality of Alcohol and Drug Abuse Patient Records regulations: The Federal rules restrict any use of the information to criminally investigate or prosecute any alcohol or drug abuse patient.[facility]In the event this information is protected by the Federal Confidentiality of Alcohol and Drug Abuse Patient Records regulations: The Federal rules restrict any use of the information to criminally investigate or prosecute any alcohol or drug abuse patient.[facility] SpringfieldIn the event this information is protected by the Federal Confidentiality of Alcohol and Drug Abuse Patient Records regulations: The Federal rules restrict any use of the information to criminally investigate or prosecute any alcohol or drug abuse patient.[facility] SpringfieldIn the event this information is protected by the Federal Confidentiality of Alcohol and Drug Abuse Patient Records regulations: The Federal rules restrict any use of the information to criminally investigate or prosecute any alcohol or drug abuse patient.[facility] SpringfieldIn the event this information is protected by the Federal Confidentiality of Alcohol and Drug Abuse Patient Records regulations: The Federal rules restrict any use of the information to criminally investigate or prosecute any alcohol or drug abuse patient.[facility] SpringfieldIn the event this information is protected by the Federal Confidentiality of Alcohol and Drug Abuse Patient Records regulations: The Federal rules restrict any use of the information to criminally investigate or prosecute any alcohol or drug abuse patient.[facility] SpringfieldIn the event this information is protected by the Federal Confidentiality of Alcohol and Drug Abuse Patient Records regulations: The Federal rules restrict any use of the information to criminally investigate or prosecute any alcohol or drug abuse patient.[facility] SpringfieldIn the event this information is protected by the Federal Confidentiality of Alcohol and Drug Abuse Patient Records regulations: The Federal rules restrict any use of the information to criminally investigate or prosecute any alcohol or drug abuse patient.[facility] SpringfieldIn the event this information is protected by the Federal Confidentiality of Alcohol and Drug Abuse Patient Records regulations: The Federal rules restrict any use of the information to criminally investigate or prosecute any alcohol or drug abuse patient.[facility] SpringfieldIn the event this information is protected by the Federal Confidentiality of Alcohol and Drug Abuse Patient Records regulations: The Federal rules restrict any use of the information to criminally investigate or prosecute any alcohol or drug abuse patient.[facility]In the event this information is protected by the Federal Confidentiality of Alcohol and Drug Abuse Patient Records regulations: The Federal rules restrict any use of the information to criminally investigate or prosecute any alcohol or drug abuse patient.[facility]In the event this information is protected by the Federal Confidentiality of Alcohol and Drug Abuse Patient Records regulations: The Federal rules restrict any use of the information to criminally investigate or prosecute any alcohol or drug abuse patient.[facility]In the event this information is protected by the Federal Confidentiality of Alcohol and Drug Abuse Patient Records regulations: The Federal rules restrict any use of the information to criminally investigate or prosecute any alcohol or drug abuse patient.[facility]In the event this information is protected by the Federal Confidentiality of Alcohol and Drug Abuse Patient Records regulations: The Federal rules restrict any use of the information to criminally investigate or prosecute any alcohol or drug abuse patient.[facility]In the event this information is protected by the Federal Confidentiality of Alcohol and Drug Abuse Patient Records regulations: The Federal rules restrict any use of the information to criminally investigate or prosecute any alcohol or drug abuse patient.[facility] SpringfieldIn the event this information is protected by the Federal Confidentiality of Alcohol and Drug Abuse Patient Records regulations: The Federal rules restrict any use of the information to criminally investigate or prosecute any alcohol or drug abuse patient.[facility]In the event this information is protected by the Federal Confidentiality of Alcohol and Drug Abuse Patient Records regulations: The Federal rules restrict any use of the information to criminally investigate or prosecute any alcohol or drug abuse patient.[facility]In the event this information is protected by the Federal Confidentiality of Alcohol and Drug Abuse Patient Records regulations: The Federal rules restrict any use of the information to criminally investigate or prosecute any alcohol or drug abuse patient.[facility]In the event this information is protected by the Federal Confidentiality of Alcohol and Drug Abuse Patient Records regulations: The Federal rules restrict any use of the information to criminally investigate or prosecute any alcohol or drug abuse patient.[facility]In the event this information is protected by the Federal Confidentiality of Alcohol and Drug Abuse Patient Records regulations: The Federal rules restrict any use of the information to criminally investigate or prosecute any alcohol or drug abuse patient.[facility] SpringfieldIn the event this information is protected by the Federal Confidentiality of Alcohol and Drug Abuse Patient Records regulations: The Federal rules restrict any use of the information to criminally investigate or prosecute any alcohol or drug abuse patient.[facility]In the event this information is protected by the Federal Confidentiality of Alcohol and Drug Abuse Patient Records regulations: The Federal rules restrict any use of the information to criminally investigate or prosecute any alcohol or drug abuse patient.[facility]In the event this information is protected by the Federal Confidentiality of Alcohol and Drug Abuse Patient Records regulations: The Federal rules restrict any use of the information to criminally investigate or prosecute any alcohol or drug abuse patient.[facility]In the event this information is protected by the Federal Confidentiality of Alcohol and Drug Abuse Patient Records regulations: The Federal rules restrict any use of the information to criminally investigate or prosecute any alcohol or drug abuse patient.[facility]In the event this information is protected by the Federal Confidentiality of Alcohol and Drug Abuse Patient Records regulations: The Federal rules restrict any use of the information to criminally investigate or prosecute any alcohol or drug abuse patient.[facility]In the event this information is protected by the Federal Confidentiality of Alcohol and Drug Abuse Patient Records regulations: The Federal rules restrict any use of the information to criminally investigate or prosecute any alcohol or drug abuse patient.[facility]In the event this information is protected by the Federal Confidentiality of Alcohol and Drug Abuse Patient Records regulations: The Federal rules restrict any use of the information to criminally investigate or prosecute any alcohol or drug abuse patient.[facility]In the event this information is protected by the Federal Confidentiality of Alcohol and Drug Abuse Patient Records regulations: The Federal rules restrict any use of the information to criminally investigate or prosecute any alcohol or drug abuse patient.[facility]In the event this information is protected by the Federal Confidentiality of Alcohol and Drug Abuse Patient Records regulations: The Federal rules restrict any use of the information to criminally investigate or prosecute any alcohol or drug abuse patient.[facility]In the event this information is protected by the Federal Confidentiality of Alcohol and Drug Abuse Patient Records regulations: The Federal rules restrict any use of the information to criminally investigate or prosecute any alcohol or drug abuse patient.[facility]In the event this information is protected by the Federal Confidentiality of Alcohol and Drug Abuse Patient Records regulations: The Federal rules restrict any use of the information to criminally investigate or prosecute any alcohol or drug abuse patient.[facility] SpringfieldIn the event this information is protected by the Federal Confidentiality of Alcohol and Drug Abuse Patient Records regulations: The Federal rules restrict any use of the information to criminally investigate or prosecute any alcohol or drug abuse patient.[facility]In the event this information is protected by the Federal Confidentiality of Alcohol and Drug Abuse Patient Records regulations: The Federal rules restrict any use of the information to criminally investigate or prosecute any alcohol or drug abuse patient.[facility]In the event this information is protected by the Federal Confidentiality of Alcohol and Drug Abuse Patient Records regulations: The Federal rules restrict any use of the information to criminally investigate or prosecute any alcohol or drug abuse patient.[facility] SpringfieldIn the event this information is protected by the Federal Confidentiality of Alcohol and Drug Abuse Patient Records regulations: The Federal rules restrict any use of the information to criminally investigate or prosecute any alcohol or drug abuse patient.[facility] SpringfieldIn the event this information is protected by the Federal Confidentiality of Alcohol and Drug Abuse Patient Records regulations: The Federal rules restrict any use of the information to criminally investigate or prosecute any alcohol or drug abuse patient.[facility]In the event this information is protected by the Federal Confidentiality of Alcohol and Drug Abuse Patient Records regulations: The Federal rules restrict any use of the information to criminally investigate or prosecute any alcohol or drug abuse patient.[facility]In the event this information is protected by the Federal Confidentiality of Alcohol and Drug Abuse Patient Records regulations: The Federal rules restrict any use of the information to criminally investigate or prosecute any alcohol or drug abuse patient.[facility]In the event this information is protected by the Federal Confidentiality of Alcohol and Drug Abuse Patient Records regulations: The Federal rules restrict any use of the information to criminally investigate or prosecute any alcohol or drug abuse patient.[facility] SpringfieldIn the event this information is protected by the Federal Confidentiality of Alcohol and Drug Abuse Patient Records regulations: The Federal rules restrict any use of the information to criminally investigate or prosecute any alcohol or drug abuse patient.[facility] Reason for Visit (unrecogniz ed section and content) Reason Comments Results Reason Comments Patient Update Reason Onset Date Comments Refill Request 06/03/2022 Reason Comments Results Reason Comments Appointment Reason Onset Date Comments Transition Of Care 07/09/2022 Discharged 2. 8.23 initial outreach Reason Onset Date Comments Refill Request 07/15/2022 Reason Comments Medication Problem Specialty Diagnoses / Procedures Referred By Leticia ding Referred To Contact [facility] Home Care [address] [place] [id number] Referral ID Status Reason Start Date Expiration Date Visits Re quested Visits Authorized [id number] 1 1 Reason Comments Transition Of Care Reason Comments Hospital Follow Up Pt requesting refill on pain meds. Ok per SW per 07.15.2022 tele call. Pt's PCP did NOT renew medication at yesterday's OV. Reason Onset Date Comments Refill Request 07/13/2022 Reason Onset Date Comments Allied Health Visit 08/05/2022 Medication A dherence Outreach Reason Comments Established Patient Reason Comments Established Patient Specialty Diagnoses / Procedures Referred By Leticia t Referred To Contact CT IMAGING Diagnoses Closed fracture of first thoracic vertebra with routine healing, unspecified fracture morphology, subsequent encounter Procedures CT THORACIC SPINE WO IVCON CT THORACIC SPINE W/O CONTRAST MATERIAL Leah Blair, STORY TELLER.MULTIMEDIA ASSISTANT [address] [place] [address] Ct Imaging Referral ID Status Reason Start Date Expiration Date V isits Requested Visits Authorized [id number] Closed Auto-Generate d Referral 08/18/2022 09/17/2023 1 1 Reason Comments Forms Reason Comments Back Pain Lower back, lifted A C unit heard a pop x 1 week Reason Comments Rad[address] CT Specialty Diagnoses / Procedures Referred By Contac t Referred To Contact CT IMAGING Diagnoses Alcohol abuse Bilateral leg edema Diminished pulses in lower extremity Ex-smoker Procedures CTA ABD/PEL LOWER EXTREM WO/W IVCON CTA ABDL AORTA&BI ILIOFEM W/CONTRAST&POSTP Fredrick Feliciano MD [address] [place] [address] [place] [address] Referral ID Status Reason Start Date Expiration Date V isits Requested Visits Authorized [id number] Closed Auto-Generate d Referral 12/16/2022 01/15/2024 1 1 Reason Onset Date Comments Population Health Navigation Outreach 07/19/2023 [place] [facility] Reason Comments Refill Request Reason Comments Medicare Wellness Exam Reason Comments Radiology US Specialty Diagnoses / Procedures Referred By Contac t Referred To Contact US IMAGING Diagnoses Alkaline phosphatase elevation Procedures US ABD RIGHT UPPER QUADRANT US ABDOMINAL REAL TIME W/IMAGE LIMITED Erum Castaneda PA-C [address] [place] [address] [place] [address] Referral ID Status Reason Start Date Expiration Date V isits Requested Visits Authorized [id number] Closed Auto-Generate d Referral 01/07/2024 05/30/2024 1 1 Reason Comments Patient Question Reason Onset Date Comments Refill Request 05/02/2024 Reason Comments 6 Month Exam Reason Comments Follow Up Blood pressure Reason Onset Date Comments Refill Request 10/05/2024 Reason Comments Dizziness Patient states has h ad lightheadedness x 1 month. Pt report that he fell 01/14 in his apartment. Having right rib pain Reason Onset Date Comments Results 01/19/2025 Care Teams (unrecognized sec tion and content) Barge Loader Relationship Specialty Start Date End Date Fredrick Feliciano MD [address] [place] [address] PCP - General Family Practice 04/26/18 Barge Loader Relationship Specialty Start Date End Date Fredrick Feliciano MD [address] [place] [address] PCP - General Family Medicine 04/26/18 Barge Loader Relationship Specialty Start Date End Date Fredrick Feliciano MD [address] [place] [address] PCP - General Family Medicine 04/26/18 Barge Loader Relationship Specialty Start Date End Date Fredrick Feliciano MD [address] [place] [address] PCP - General Family Medicine 04/26/18 Barge Loader Relationship Specialty Start Date End Date Fredrick Feliciano MD [address] [place] [address] PCP - General Family Medicine 04/26/18 Kodak Hurst PA-C [address] [place] [address] Referring General Surgery 07/08/22 Barge Loader Relationship Specialty Start Date End Date Fredrick Feliciano MD [address] [place] [address] PCP - General Family Medicine 04/26/18 Kodak Hurst PA-C [address] [facility] [place] [address] Referring General Surgery 07/08/22 Fredrick Feliciano MD [address] [place] [address] Home Care Provider Family Medicine 07/09/22 Amie Nixon, PT [address] [place] [address] Courtesy Driver Post Acute Care 07/09/22 Barge Loader Relationship Specialty Start Date End Date Fredrick Feliciano MD [address] [facility] [place] [address] PCP - General Family Medicine 04/26/18 Kodak Hurst PA-C 1 [place] [address] Referring General Surgery 07/08/22 Fredrikc Feliciano MD [address] [facility] [place] [address] Home Care Provider Family Medicine 07/09/22 Amie Nixon, PT [address] [place] [address] Courtesy Driver Post Acute Care 07/09/22 Barge Loader Relationship Specialty Start Date End Date Fredrick Feliciano MD [address] [facility] [place] [address] PCP - General Family Medicine 04/26/18 Kodak Hurst PA-C 1 [place] [address] Referring General Surgery 07/08/22 Fredrick Feliciano MD [address] [facility] [place] [address] Home Care Provider Family Medicine 07/09/22 Amie Nixon, PT [address] [place] [address] Courtesy Driver Post Acute Care 07/09/22 Barge Loader Relationship Specialty Start Date End Date Fredrick Feliciano MD [address] [facility] [place] [address] PCP - General Family Medicine 04/26/18 Kodak Hurst PA-C [address] [facility] [place] [address] Referring General Surgery 07/08/22 Fredrick Feliciano MD [address] [place] [address] Home Care Provider Family Medicine 07/09/22 Amie Nixon, PT [address] [place] [address] Courtesy Driver Post Acute Care 07/09/22 Barge Loader Relationship Specialty Start Date End Date Fredrick Feliciano MD [address] [place] [address] PCP - General Family Medicine 04/26/18 Kodak Hurst PA-C [address] [facility] [place] [address] Referring General Surgery 07/08/22 Fredrick Feliciano MD [address] [place] [address] Home Care Provider Family Medicine 07/09/22 Amie Nixon, PT [address] [place] [address] Courtesy Driver Post Acute Care 07/09/22 Barge Loader Relationship Specialty Start Date End Date Fredrick Feliciano MD [address] [place] [address] PCP - General Family Medicine 04/26/18 Kodak Hurst PA-C [address] [facility] [place] [address] Referring General Surgery 07/08/22 Fredrick Feliciano MD [address] [place] [address] Home Care Provider Family Medicine 07/09/22 mAie Nixon, PT [address] [place] [address] Courtesy Driver Post Acute Care 07/09/22 Barge Loader Relationship Specialty Start Date End Date Fredrick Feliciano MD [address] [facility] [place] [address] PCP - General Family Medicine 04/26/18 Kodak Hurst PA-C 1 [place] [address] Referring General Surgery 07/08/22 Fredrick Feliciano MD [address] [place] [address] Home Care Provider Family Medicine 07/09/22 Amie Nixon, PT [address] [place] [address] Courtesy Driver Post Acute Care 07/09/22 Barge Loader Relationship Specialty Start Date End Date Fredrick Feliciano MD [address] [facility] [place] [address] PCP - General Family Medicine 04/26/18 Kodak Hurst PA-C 1 [place] [address] Referring General Surgery 07/08/22 Fredrick Feliciano MD [address] [place] [address] Home Care Provider Family Medicine 07/09/22 Amie Nixon, PT [address] [place] [address] Courtesy Driver Post Acute Care 07/09/22 Barge Loader Relationship Specialty Start Date End Date Fredrick Feliciano MD [address] [facility] [place] [address] PCP - General Family Medicine 04/26/18 Kodak Hurst PA-C [address] [place] [address] Referring General Surgery 07/08/22 Fredrick Feliciano MD [address] [facility] [place] [address] Home Care Provider Family Medicine 07/09/22 Amie Nixon, PT [address] [place] [address] Courtesy Driver Post Acute Care 07/09/22 Barge Loader Relationship Specialty Start Date End Date Fredrick Feliciano MD [address] [place] [address] PCP - General Family Medicine 04/26/18 Kodak Hurst PA-C [address] [place] [address] Referring General Surgery 07/08/22 Fredrick Feliciano MD [address] [facility] [place] [address] Home Care Provider Family Medicine 07/09/22 Amie Nixon, PT [address] [place] [address] Courtesy Driver Post Acute Care 07/09/22 Barge Loader Relationship Specialty Start Date End Date Fredrick Feliciano MD [address] [place] [address] PCP - General Family Medicine 04/26/18 Kodak Hurst PA-C [address] [facility] [place] [address] Referring General Surgery 07/08/22 Fredrick Feliciano MD [address] [place] [address] Home Care Provider Family Medicine 07/09/22 Amie Nixon, PT [address] [place] [address] Courtesy Driver Post Acute Care 07/09/22 Barge Loader Relationship Specialty Start Date End Date Fredrick Feliciano MD [address] [facility] [place] [address] PCP - General Family Medicine 04/26/18 Kodak Hurst PA-C [address] [facility] [place] [address] Referring General Surgery 07/08/22 Fredrick Feliciano MD [address] [place] [address] Home Care Provider Family Medicine 07/09/22 Amie Nixon, PT [address] [place] [address] Courtesy Driver Post Acute Care 07/09/22 Barge Loader Relationship Specialty Start Date End Date Fredrick Feliciano MD [address] [place] [address] PCP - General Family Medicine 04/26/18 Kodak Hurst PA-C 1 [place] [address] Referring General Surgery 07/08/22 Fredrick Feliciano MD [address] [place] [address] Home Care Provider Family Medicine 07/09/22 Amie Nixon, PT [address] [place] [address] Courtesy Driver Post Acute Care 07/09/22 Barge Loader Relationship Specialty Start Date End Date Fredrick Feliciano MD [address] [place] [address] PCP - General Family Medicine 04/26/18 Kodak Hurst PA-C 1 [place] [address] Referring General Surgery 07/08/22 Fredrick Feliciano MD [address] [place] [address] Home Care Provider Family Medicine 07/09/22 Amie Nixon, PT [address] [place] [address] Courtesy Driver Post Acute Care 07/09/22 Barge Loader Relationship Specialty Start Date End Date Fredrick Feliciano MD [address] [place] [address] PCP - General Family Medicine 04/26/18 Kodak Hurst PA-C 1 [place] [address] Referring General Surgery 07/08/22 Fredrick Feliciano MD [address] [place] [address] Home Care Provider Family Medicine 07/09/22 Amie Nixon, PT [address] [place] [address] Courtesy Driver Post Acute Care 07/09/22 Barge Loader Relationship Specialty Start Date End Date Fredrick Feliciano MD [address] [place] [address] PCP - General Family Medicine 04/26/18 Kodak Hurst PA-C [address] [place] [address] Referring General Surgery 07/08/22 Fredrick Feliciano MD [address] [place] [address] Home Care Provider Family Medicine 07/09/22 Amie Nixon, PT [address] [place], [place] [phone] Courtesy Driver Post Acute Care 07/09/22 Barge Loader Relationship Specialty Start Date End Date Fredrick Feliciano MD [address] [place] [address] PCP - General Family Medicine 04/26/18 Kodak Hurst PA-C [address] [place], [place] [id number] Referring General Surgery 07/08/22 Fredrick Feliciano MD [address] [place] [address] Home Care Provider Family Medicine 07/09/22 Barge Loader Relationship Specialty Start Date End Date Fredrick Feliciano MD [address] [place] [address] PCP - General Family Medicine 04/26/18 Kodak Hurst PA-C [address] [place] [address] Referring General Surgery 07/08/22 Fredrick Feliciano MD [address] [place] [address] Home Care Provider Family Medicine 07/09/22 Barge Loader Relationship Specialty Start Date End Date Fredrick Feliciano MD [address] [place] [address] PCP - General Family Medicine 04/26/18 Kodak Hurst PA-C [address] [place] [address] Referring General Surgery 07/08/22 Fredrick Feliciano MD [address] [place] [address] Home Care Provider Family Medicine 07/09/22 Barge Loader Relationship Specialty Start Date End Date Fredrick Feliciano MD [address] [place] [address] PCP - General Family Medicine 04/26/18 Kodak Hurst PA-C 1 [facility] [address] Referring General Surgery 07/08/22 Fredrick Felciiano MD [address] [place] [address] Home Care Provider Family Medicine 07/09/22 Barge Loader Relationship Specialty Start Date End Date Fredrick Feliciano MD [address] [place] [address] PCP - General Family Medicine 04/26/18 Kodak Hurst PA-C 1 [place] [address] Referring General Surgery 07/08/22 Fredrick Feliciano MD [address] [place] [address] Home Care Provider Family Medicine 07/09/22 Barge Loader Relationship Specialty Start Date End Date Fredrick Feliciano MD [address] [place] [address] PCP - General Family Medicine 04/26/18 Kodak Hurst PA-C [address] [facility] [place], [place] [id number] Referring General Surgery 07/08/22 Fredrick Feliciano MD [address] [place] [address] Home Care Provider Family Medicine 07/09/22 Barge Loader Relationship Specialty Start Date End Date Fredrick Feliciano MD [address] [place] [address] PCP - General Family Medicine 04/26/18 Kodak Hurst PA-C [address] [place] [address] Referring General Surgery 07/08/22 Fredrick Feliciano MD [address] [place] [address] Home Care Provider Family Medicine 07/09/22 Barge Loader Relationship Specialty Start Date End Date Fredrick Feliciano MD [address] [place] [address] PCP - General Family Medicine 04/26/18 Kodak Hurst PA-C [address] [place] [address] Referring General Surgery 07/08/22 Fredrick Feliciano MD [address] [place] [address] Home Care Provider Family Medicine 07/09/22 Barge Loader Relationship Specialty Start Date End Date Fredrick Feliciano MD [address] [place] [address] PCP - General Family Medicine 04/26/18 Kodak Hurst PA-C [address] [facility] [place] [address] Referring General Surgery 07/08/22 Fredrick Feliciano MD [address] [place] [address] Home Care Provider Family Medicine 07/09/22 Barge Loader Relationship Specialty Start Date End Date Fredrick Felciiano MD [address] [place] [address] PCP - General Family Medicine 04/26/18 Kodak Hurst PA-C [address] [facility] [place] [address] Referring General Surgery 07/08/22 Fredrick Feliciano MD [address] [place] [address] Home Care Provider Family Medicine 07/09/22 Barge Loader Relationship Specialty Start Date End Date Fredrick Feliciano MD [address] [place] [address] PCP - General Family Medicine 04/26/18 Kodak Hurst PA-C [address] [facility] [address] Referring General Surgery 07/08/22 Fredrick Feliciano MD [address] [place] [address] Home Care Provider Family Medicine 07/09/22 Barge Loader Relationship Specialty Start Date End Date Fredrick Feliciano MD [address] [place] [address] PCP - General Family Medicine 04/26/18 Kodak Hurst PA-C [address] [place] [address] Referring General Surgery 07/08/22 Fredrick Feliciano MD [address] [place] [address] Home Care Provider Family Medicine 07/09/22 Barge Loader Relationship Specialty Start Date End Date Fredrick Feliciano MD [address] [place] [address] PCP - General Family Medicine 04/26/18 Kodak Hurst PA-[facility] [address] [place] [address] Referring General Surgery 07/08/22 Fredrick Feliciano MD [address] [place] [address] Home Care Provider Family Medicine 07/09/22 Barge Loader Relationship Specialty Start Date End Date Fredrick Feliciano MD [address] [place] [address] PCP - General Family Medicine 04/26/18 Kodak Hurst PA-C [address] [facility] [place] [address] Referring General Surgery 07/08/22 Fredrick Feliciano MD [address] [place] [address] Home Care Provider Family Medicine 07/09/22 Марина Aparicio APRN.MULTIMEDIA ASSISTANT [address] [place] [address] [facility] 05/06/24 Erum Castaneda PA-C [address] [place] [address] [facility] 05/06/24 Barge Loader Relationship Specialty Start Date End Date Fredrick Feliciano MD [address] [place] [address] PCP - General Family Medicine 04/26/18 Kodak Hurst PA-C 1 [place] [address] Referring General Surgery 07/08/22 Fredrick Feliciano MD [address] [place] [address] Home Care Provider Family Medicine 07/09/22 Марина Aparicio APRN.MULTIMEDIA ASSISTANT [address] [place] [address] [facility] 05/06/24 Erum Castaneda PA-C [facility] [place] [address] [facility] 05/06/24 Barge Loader Relationship Specialty Start Date End Date Fredrick Feliciano MD [address] [place] [address] PCP - General Family Medicine 04/26/18 Kodak Hurst PA-C [address] [place], [place] [id number] Referring General Surgery 07/08/22 Ferdrick Feliciano MD [address] [place], [place] [address]991 Home Care Provider Family Medicine 07/09/22 Марина Aparicio APRN.MULTIMEDIA ASSISTANT [facility] [place] [address] [facility] 05/06/24 Erum Castaneda PA-C [facility] [place] [address] [facility] 05/06/24 Barge Loader Relationship Specialty Start Date End Date Fredrick Feliciano MD [address] [place] [address] PCP - General Family Medicine 04/26/18 Kodak Hurst PA-C [address] [place], [place] [id number] Referring General Surgery 07/08/22 Fredrick Feliciano MD [address] [place] [address] Home Care Provider Family Medicine 07/09/22 Марина Aparicio APRN.MULTIMEDIA ASSISTANT [facility] [place] [address] [facility] 05/06/24 Erum Castaneda PA-C [address] [place] [address] [facility] 05/06/24 Barge Loader Relationship Specialty Start Date End Date Fredrick Feliciano MD [address] [place] [address] PCP - General Family Medicine 04/26/18 Kodak Hurst PA-C 1 [place], [place] [id number] Referring General Surgery 07/08/22 Fredrick Feliciano MD [address] [place] [address] Home Care Provider Family Medicine 07/09/22 Марина Aparicio APRN.CNP [address] [place] [address] [facility] 10/30/24 Erum Castaneda PA-C [address] [place] [address] [facility] 10/30/24 Barge Loader Relationship Specialty Start Date End Date Fredrick Feliciano MD [address] [place] [address] PCP - General Family Medicine 04/26/18 Kodak Hurst PA-C [address] [place], [place] [id number] Referring General Surgery 07/08/22 Fredrick Feliciano MD [address] [place], [place] [address] [phone] Home Care Provider Family Medicine 07/09/22 Марина Aparicio, ZAKI.MULTIMEDIA ASSISTANT [address] [place] [address] [facility] 10/30/24 Ermu Castaneda PA-C [address] [place] [address] [facility] 10/30/24 Barge Loader Relationship Specialty Start Date End Date Fredrick Feliciano MD [address] [place] [address] PCP - General Family Medicine 04/26/18 Kodak Hurst PA-C [address] [facility] [place] [address] Referring General Surgery 07/08/22 Fredrick Feliciano MD [address] [place] [address] Home Care Provider Family Medicine 07/09/22 Марина Aparicio, ZAKI.MULTIMEDIA ASSISTANT [facility] [place] [address] [facility] 10/30/24 Erum Castaneda PA-C [address] [place] [address] [facility] 10/30/24 Barge Loader Relationship Specialty Start Date End Date Fredrick Feilciano MD [address] [place] [address] PCP - General Family Medicine 04/26/18 Kodak Hurst PA-C [address] [place] [address] Referring General Surgery 07/08/22 Fredrick Feliciano MD [address] [place], [place] [address] Home Care Provider Family Medicine 07/09/22 Марина Aparicio APRN.MULTIMEDIA ASSISTANT [address] [place], [place] [id number] [facility] 10/30/24 Erum Castaneda PA-C [address] [place] [address] [facility] 10/30/24 (unrecognized sect ion and content) No Status Records FoundNo Status Records FoundNo Status Records Found INFORMATION SOURCE (unrecogn ized section and content) DATE CREATED AUTHOR 09/05/2022 [facility] DATE CREATED AUTHOR AUTHOR'S ORGANIZ ATION 05/19/2023 [facility] DATE CREATED AUTHOR AUTHOR'S ORGANIZ ATION 01/20/2025 [facility] FOR RECORDS PERTAINING TO PATIENTS WHO ARE OR HAVE BEEN ENROLLED IN A CHEMICAL DEPENDENCY/SUBSTANCEABUSE PROGRAM, SOME INFORMATION MAY BE OMITTED. This clinical summary was aggregated from multiple sources. Caution should be exercised in using it in the provision of clinical care. This summary normalizes information from multiple sources, and as a consequence, information in this document may materially change the coding, format and clinical context of patient data. In addition, data may be omitted in some cases. CLINICAL DECISIONS SHOULD BE BASED ON THE PRIMARY CLINICAL RECORDS. [employer] provides no warranty or guarantee of the accuracy or completeness of information in this document.
[2025-01-20 10:59] VITALS: BP 137/88; PULSE 70; RESP 14; O2SAT 100
[2025-01-20 11:05] LABS: Anion Gap 15 (5-15); BUN 15 mg/dL (4-19); BUN/Creat Ratio 13.8 RATIO (10-20); Calcium,Total 9.2 mg/dL (7.6-11.0); Carbon Dioxide 22.8 mmol/L (21.0-32.0); Chloride 90 mmol/L (98-108); Estimated Creatinine Clearance 62.25 ml/min (50-250); Glucose 102 mg/dL (70-99); Potassium 4.0 mmol/L (3.3-5.1)
[2025-01-20 12:48] VITALS: BP 134/86; PULSE 80; RESP 16; TEMP 36.9; O2SAT 100
== END 2025-01-20 12:50 | disposition home or self-care (01) ==
PROVIDERS: Emergency Provider Emergency Medicine; PCP Family Medicine; Visit Provider Emergency Medicine
DX: E87.1 Hypo-osmolality and hyponatremia (principal); I10 Essential (primary) hypertension; Z87.891 Personal history of nicotine dependence
CPT/HCPCS: 80048; 85025; 99283; A4216

== ENCOUNTER 2025-02-18 14:44 | Emergency (ER) | payer MEDICARE, MEDICAID, SELFPAY ==
[2025-02-18] VITALS (10 sets, daily range): BP systolic 123–158; BP diastolic 89–110; PULSE 86–99; RESP 14–17; TEMP 36.6–36.7; O2SAT 96–100
--- NOTE | 2025-02-18 15:05 | EKG12_ITS ---
Test Reason : FALL/DIZZINESS Blood Pressure : */* mmHG Vent. Rate : 91 BPM Atrial Rate : 91 BPM P-R Int : 192 ms QRS Dur : 92 ms QT Int : 392 ms P-R-T Axes : 1 -29 43 degrees QTcB Int : 482 ms Normal sinus rhythm Nonspecific ST and T wave abnormality Abnormal ECG Confirmed by SHAZIA MAGALLANES, LIZZIE ([id number]), general expeditor GOYO NICHOLAS ([id number]) on 02/19/2025 7:59:06 AM Referred By: [facility] Confirmed By: LIZZIE MCCRAY MD
--- NOTE | 2025-02-18 15:08 | EX.ED.GENINJ ---
HPI History of Present Illness Chief Complaint: Dizziness Detail of Chief Complaint: Intermittent dizziness x 1 year. Detailed HPI neuro Informant: patient Onset/Context/Timing Onset: Today Mechanism/Context: Fall Location of pain/injuries: - (Laceration right brow and skin tear left forearm) Quality of Pain: Aching Location: Forehead Current Severity: Mild Maximum Severity: Moderate Worsened by: Palpation Relieved by: Not applicable Associated Symptoms Associated Symptoms: Positive for Loss of consciousness and Amnesia; Negative for Parasthesias, Weakness, Loss of function or Inability to ambulate Narrative Narrative: Patient is a 69-year-old male. He was at his neighbor's house. He was in the basement. He was watching the [email or web address] game. Half-time was approaching. He states he joelle to walk into the other room to speak with a gentleman who was watching the [employer] game. He said upon standing he felt lightheaded. He then woke up on the floor. He had to have assistance to get up. He denied chest pain, shortness of breath or difficulty breathing. He denies leg pain, swelling or discoloration. He denies chest pressure, tightness or heaviness. He denies abdominal pain. He denies nausea, vomiting or diarrhea. He denies black or maroon-colored stool. He does complain of head pain. He denies double vision, blurred vision or loss of vision. He denies tinnitus. He denies dental pain or jaw pain. He denies neck pain. He denies paresthesia or anesthesia upper or lower extremity. He denies weakness in his arms or legs. He denies problems with coordination or balance. He states that he has had intermittent lightheadedness for 1 year. This is the first time he passed out. He does have a history of hypertension. He states he had a half a can of a hard mikes lemonade. He had been sitting in the chair for the entire first half of the [employer] problems getting. Tetanus Immunization: Unknown (Decades ago) Prior similar symptoms: No Recent Illness/Hospitalization: No [facility] Medical History snf use of drug Elevated LFTs Alcohol abuse Essential (primary) hypertension Home Medications ?Medication ?Instructions ?Recorded ?Last Taken ?Type lisinopril 40 mg tablet 40 mg PO DAILY 30 days #30 tabs 10/18/18 01/09/19 09:00 History 40 MG amlodipine 10 mg tablet 10 mg PO DAILY 06/18/20 Unknown History cyanocobalamin (vitamin B-12) 1,000 mcg PO DAILY 06/18/20 Unknown History 1,000 mcg tablet thiamine HCl (vitamin B1) 100 mg 100 mg PO DAILY 07/06/22 Unknown History tablet Allergy/AdvReac Type Severity Reaction Status Date / Time No Known Allergies Allergy Verified 07/06/22 05:57 Social History Smoking Status: Former smoker quit date: 05/31/74 pack-years: 11 alcohol intake: current alcohol intake frequency: 3 or more drinks per day Alcohol type: beer ROS ROS ED Constitutional Constitutional ED: Denies chills, fever(s) or subjective Eyes Eyes: Denies blurry vision or change in vision ENT ENT ED: Denies ear pain, rhinorrhea or sore throat Cardiovascular Cardiovascular: Denies chest pain, palpitations or racing heartbeat Respiratory/Chest Respiratory/Chest: Denies cough, dyspnea or dyspnea on exertion Gastrointestinal Gastrointestinal: Denies abdominal pain, nausea or vomiting Genitourinary Genitourinary ED: Denies dysuria or hematuria Musculoskeletal Musculoskeletal: Denies arthralgias or myalgias Integumentary Reports other Details: 2 skin tears dorsal left forearm 1 measuring 5 cm and the other 1 2 cm. There is also a forehead laceration superior lateral to the right orbit. Neurologic Neurologic: Reports headache(s); Denies paresthesias or weakness Psychiatric Psychiatric: Denies anxiety or depression Endocrine Endocrinology: Denies cold intolerance or heat intolerance Hematologic/Lymphatic Hematologic/Lymphatic: Denies easy bleeding or easy bruising EXAM Physical Exam Const Vital Signs: 02/18/25 14:47 02/18/25 14:56 02/18/25 15:56 Temperature 98.0 F Temperature Source Oral Pulse Rate 94 90 86 Pulse Rate [Lying] Pulse Rate [Sitting (for 1 minute prior to obtaining)] Pulse Rate [Standing (for 1 minute prior to obtaining)] Respiratory Rate 14 Blood Pressure 151/89 H 141/93 H 158/109 H Blood Pressure [Lying] Blood Pressure [Sitting (for 1 minute prior to obtaining)] Blood Pressure [Standing (for 1 minute prior to obtaining)] Blood Pressure Mean 109 109 125 Blood Pressure Mean [Lying] Blood Pressure Mean [Sitting (for 1 minute prior to obtaining)] Blood Pressure Mean [Standing (for 1 minute prior to obtaining)] Pulse Ox 99 96 100 Oxygen Delivery Method Room Air Room Air 02/18/25 16:00 02/18/25 16:43 02/18/25 17:00 Temperature Temperature Source Pulse Rate 87 Pulse Rate [Lying] 94 Pulse Rate [Sitting (for 1 minute prior to obtaining)] 90 Pulse Rate [Standing (for 1 minute prior to obtaining)] 97 Respiratory Rate Blood Pressure 145/106 H 154/110 H Blood Pressure [Lying] 153/94 H Blood Pressure [Sitting (for 1 minute prior to obtaining)] 134/105 H Blood Pressure [Standing (for 1 minute prior to obtaining)] 123/91 H Blood Pressure Mean 119 124 Blood Pressure Mean [Lying] 113 Blood Pressure Mean [Sitting (for 1 minute prior to obtaining)] 114 Blood Pressure Mean [Standing (for 1 minute prior to obtaining)] 101 Pulse Ox Oxygen Delivery Method 02/18/25 18:00 02/18/25 19:00 Temperature Temperature Source Pulse Rate 88 99 Pulse Rate [Lying] Pulse Rate [Sitting (for 1 minute prior to obtaining)] Pulse Rate [Standing (for 1 minute prior to obtaining)] Respiratory Rate Blood Pressure 149/105 H 138/109 H Blood Pressure [Lying] Blood Pressure [Sitting (for 1 minute prior to obtaining)] Blood Pressure [Standing (for 1 minute prior to obtaining)] Blood Pressure Mean 119 118 Blood Pressure Mean [Lying] Blood Pressure Mean [Sitting (for 1 minute prior to obtaining)] Blood Pressure Mean [Standing (for 1 minute prior to obtaining)] Pulse Ox 100 Oxygen Delivery Method Positive well nourished and well developed General Appearance ED: well developed and NAD HEENT HEENT Narrative: Patient has a beveled laceration that is slightly irregular right inferior forehead, right brow and orbit. The levator mechanism is intact. There is no subconjunctival hemorrhage. Pupils are equal round reactive. Extraocular muscles are intact. He has no nystagmus. There is no septal deviation hematoma. Patient has very poor dentition. Posterior pharynx is normal. Uvula is midline. There is no deviation of the protrusion. Ears are normal. He has piercings on the left side. There is no hemotympanum. There is no CSF otorrhea or rhinorrhea. There is no palpable depression over the lacerated area. trauma and tenderness Eyes PERRL and EOMs intact bilaterally Neck full ROM General: Negative for tenderness Chest Wall inspection of chest normal and palpation of chest normal Resp normal respiratory effort and clear to auscultation bilaterally Cardio regular rhythm, S1 normal heart sound, S2 normal heart sound and no murmurs Rate: regular rate GI normal to inspection, nondistended, normoactive bowel sounds, non-tender, non-distended and no masses Back/Spine normal to inspection and no thoracic nor lumbar tenderness Extremity full ROM; Negative for normal to inspection Extremity Narrative: There is no pain the patient with a proximal humerus, lateral or medial epicondyle, olecranon process or radial head on the right or left side. There is no pain ovation over the distal radius or ulna or carpal bones right or left side. There is no evidence of injury to his digits right or left hand. Neuro oriented x3, CN's II-XII intact bilaterally, moves all extremities, no focal motor deficits and no sensory deficits noted Neuro Narrative: He has no dysmetria. There is no clonus or Babinski sign noted, bilaterally. [place] Coma Scale: document GCS findings Spontaneous Obeys Commands Oriented 15 Sensorium / Orientation: alert Deep Tendon Reflexes: Rt Triceps (C7): 2+, Lt Triceps (C7): 2+, Rt Biceps (C5, C6): 2+, Lt Biceps (C5, C6): 2+, Rt Brachioradialis (C6): 2+, Lt Brachioradialis (C6): 2+, Rt Patellar (L4): 2+, Lt Patellar (L4): 2+, Rt Ankle (S1): 2+ and Lt Ankle (S1): 2+ Deep Tendon Reflexes Back: Rt Patellar (L4): 2+, Lt Patellar (L4): 2+, Rt Ankle (S1): 2+ and Lt Ankle (S1): 2+ Plantar Reflex: Downgoing: bilateral Psych mental status grossly normal and thought process normal Skin no rashes or lesions noted, No no wounds, No skin turgor normal and no jaundice Skin Narrative: Previously described. Will measure length of facial laceration that will require repair. PROC Procedures Other Procedures Procedure(s): Forehead/facial laceration: Laceration measured 5.6 cm. It is beveled deep down to the frontalis muscle fascia. Patient was anesthetized by local infiltration. A total of 2.5 cc was infiltrated. The wound was then irrigated with 250 cc of normal saline. 3 subcu stitches placed using 5-0 Vicryl. Skin was closed with 6-0 Ethilon. There was a total of 15 simple interrupted stitches placed. Patient tolerated procedure well. Patient has good cosmesis and hemostasis. MDM MDM MDM Narrative Medical decision making narrative: After reviewing his records it is noted that patient has history of drug abuse and alcohol abuse. In light of this we will obtain alcohol level. He was placed on the monitor to assess for dysrhythmia and an EKG was obtained to rule out any ischemic event. CBC to assess H&H. Comprehensive metabolic panel to assess renal function, CO2 anion gap and his electrolytes. Apparently reviewing through prior records he also has a history of pernicious anemia. Will obtain CBC to assess H&H and indices. History & Record Review Additional record(s) reviewed:: Prior inpatient record and Prior labs Lab Data Labs: Laboratory Results - last 24 hr 02/18/25 15:42 WBC 6.2 RBC 4.43 L Hgb 14.0 Hct 40.0 MCV 90.3 MCH 31.6 MCHC 35.0 RDW Std Deviation 41.6 RDW Coeff of Oksana 12.6 Plt Count 236 MPV 7.9 Immature Gran % (Auto) 0.300 Neut % (Auto) 58.8 Lymph % (Auto) 22.9 Coos % (Auto) 15.8 H Eos % (Auto) 1.4 Baso % (Auto) 0.8 Absolute Neuts (auto) 3.8 Absolute Lymphs (auto) 1.47 Nucleated RBC % 0.3 Sodium 124 L Potassium 3.6 Chloride 90 L Carbon Dioxide 20.3 L Anion Gap 14 BUN 7 Creatinine 1.14 Est GFR (MDRD) Non-Af 69 BUN/Creatinine Ratio 6.5 L Glucose 89 Calcium 8.4 Ethyl Alcohol 63.6 H Radiography Diagnostic Testing: Clinical Impression(s) from Imaging Studies Brain CT 02/18/25 15:17 IMPRESSION: Atrophy. Microangiopathic changes in the white matter. Prior lacunar infarct. No acute abnormality Reading [facility] of the head without contrast was independent reviewed interpreted by me. I do not see any evidence of subdural hematoma, epidural hematoma, traumatic subarachnoid hemorrhage or parenchymal contusion. There is no evidence of fracture either. There is no fluid in the sinuses. Since the radiologist did not read will suture the laceration. If there is an abnormality will let patient know. EKG Initial EKG: Attestation: I personally reviewed and interpreted this EKG as follows: Interpretation: Sinus Rhythm (Rate is 91. Parables 119 ms Rickers to 92 ms. QT durations are 92 ms. [place] is normal. Computer is reading nonspecific changes. This is artifact. In my opinion EKG is normal.) Discharge Plan Triage Chief Complaint: Dizziness Other Complaint: Fall ED Provider: Rajeev Tai Dx/Rx/DC Orders Clinical Impression: Concussion with loss of consciousness, Complex laceration of face, Blood alcohol level of 60-79 mg/100 ml, Essential (primary) hypertension, Syncope and collapse Instructions: ED Concussion, ED Laceration, All Closures, ED Laceration Minimize Scars Prescriptions: No Action lisinopril 40 mg tablet 40 mg PO DAILY 30 Days Qty: 30 Patient Comments: Take 1 tablet by mouth twice daily. amlodipine 10 mg tablet 10 mg PO DAILY Patient Comments: Take 1 tablet by mouth once daily. cyanocobalamin (vitamin B-12) 1,000 mcg tablet 1,000 mcg PO DAILY Patient Comments: Take 1 tablet by mouth once daily. thiamine HCl (vitamin B1) 100 mg tablet 100 mg PO DAILY Patient Comments: Take 1 tablet by mouth once daily. Primary Care Provider: Fredrick Aiken Referrals: Fredrick Aiken MD [Primary Care Provider, Family Practice] - 5 Days for suture removal Activity Restrictions/Additional Instructions: 1. Apply bacitracin ointment twice a day. Print Language: Maltese Disposition Disposition: Home, Self Care
--- NOTE | 2025-02-18 15:17 | CT_ITS ---
PROCEDURE: BRAIN/HEAD WITHOUT CONTRAST 02/18/2025 REASON FOR EXAM: DIZZY TECHNIQUE: Procedure Code: CTBR Modality: CT Procedure: BRAIN/HEAD WITHOUT CONTRAST Coronal and Sagittal reconstruction series were provided. One or more dose reduction techniques were used (e.g., Automated exposure control, adjustment of the mA and/or kV according to patient size, use of iterative reconstruction technique. RADIATION DOSE SUMMARY: CTDlvol: 45 mGy DLP: 779 mGycm COMPARISON: 07/06/2022 FINDINGS: Normal craniovertebral junction. Mild atrophy. No intracranial mass. No intracranial hemorrhage. No edema. Prior lacunar infarct left lenticular nucleus. CT/Brain/Head without Contrast IMPRESSION: Atrophy. Microangiopathic changes in the white matter. Prior lacunar infarct. No acute abnormality Reading Location[facility]
[2025-02-18] MEDS: Lidocaine 1% (20 ml mdv) 20 ML Vial INFILT (15:35)
[2025-02-18 15:53] LABS: Hematocrit 40.0 % (40-54); Hemoglobin 14.0 g/dL (13.0-16.5); Mean Corp Hgb Conc 35.0 g/dL (32-36); Mean Corpuscular Volume 90.3 fL (80-94); Mean Platelet Vol. 7.9 fl (6.2-12.0); Platelet Count 236 K/mm3 (150-450); RBC Distribution Width CV 12.6 % (11.6-14.6); RBC Distribution Width SD 41.6 fl (35.1-43.9); Red Blood Count 4.43 M/mm3 (4.6-6.2); White Blood Count 6.2 K/mm3 (4.4-11.0)
[2025-02-18 16:07] LABS: Alcohol, Blood (Medical)-Serum 63.6 mg/dL (<=10.0)
[2025-02-18 16:09] LABS: Anion Gap 14 (5-15); BUN 7 mg/dL (4-19); BUN/Creat Ratio 6.5 RATIO (10-20); Calcium,Total 8.4 mg/dL (7.6-11.0); Carbon Dioxide 20.3 mmol/L (21.0-32.0); Chloride 90 mmol/L (98-108); Glucose 89 mg/dL (70-99); Potassium 3.6 mmol/L (3.3-5.1)
--- OUTSIDE RECORDS SUMMARY | 2025-02-18 16:50 | XMS RPT_ITS | CCD ---
Author Organization [facility] Care Team Providers Care Critical Care Registered Nurse Name Role Phone Fredrick Feliciano MD Primary Care Provider [phone] Fredrick Feliciano MD Primary Care Provider Kodak Hurst PA-C Unavailable Fredrick Feliciano MD Unavailable Hussain PT, Amie Unavailable [phone] LEAH BLAIR Referring Unavailable BRADEN, FREDRICK A Primary Care Unavailable DAVID BOYKIN Admitting Unavailabl GATO English Attending Unavailable JOSE, IVANIA Consulting Unavailable BRADEN, FREDRICK A Primary Care Unavailable LEAH BLAIR Attending Unavailable LEAH BLAIR Referring Unavailable BRADEN, FREDRICK A Primary Care Unavailable LEAH BLAIR Referring Unavailable BRADEN, FREDRICK A Primary Care Unavailable LEAH BLAIR Attending Unavailable BRADEN, FREDRICK Yvonne Referring Unavailable BRADEN, FREDRICK A Primary Care Unavailable JOSE, IVANIA Referring Unavailable BRADEN, FREDRICK A Primary Care Unavailable BRADEN, FREDRICK A Primary Care Unavailable JOSE, IVANIA Referring Unavailable LEAH BLAIR Referring Unavailable BRADEN, FREDRICK A Primary Care Unavailable IVANIA ESTRADA Attending Unavailable Fredrick Feliciano MD Primary Care Provider [phone] Fredrick Feliciano MD Unavailable Alessandra INJECTION MOLDING TECHNICIAN.Марина GENAO Unavailable Erum Castaneda PA-C Unavailable Alessandra INJECTION MOLDING TECHNICIANМарина JONES Unavailable Castaneda PA-C, Erum Unavailable Dr. Fredrick Feliciano MD Primary Care Provider [phone] Dr. Chai Frye MD Emergency Provider Chai Frye Attending Unavailable Fredrick Feliciano Primary Care Unavailable BRADEN, FREDRICK A Primary Care Unavailable CASTANEDAERUM Referring Unavailable BRADENSALIMA MATAREY A Primary Care Unavailable ERUM CASTANEDA Attending Unavailable BRADENSALIMA MATAREY A Primary Care Unavailable CASTANEDAERUM Attending Unavailable BRADEN, FREDRICK A Primary Care Unavailable CASTANEDA, ERUM Referring Unavailable CASTANEDA, ERUM Referring Unavailable BRADEN, FREDRICK A Primary Care Unavailable CASTANEDA, ERUM Attending Unavailable BRADEN, FREDRICK A Primary Care Unavailable BRADEN, FREDRICK A Primary Care Unavailable CASTANEDA, ERUM Referring Unavailable CASTANEDAERUM Attending Unavailable BRADEN, FREDRICK A Primary Care Unavailable BRADEN, FREDRICK A Primary Care Unavailable CASTANEDA, ERUM Referring Unavailable CASTANEDA, ERUM Referring Unavailable BRADEN, FREDRICK A Primary Care Unavailable BRADEN, FREDRICK A Primary Care Unavailable ERUM CASTANEDA Attending Unavailable Medications Current Medications Medication Drug Class(es) [...] Start: 07-08-2022 take 3 tablets by mo uth every six hours as needed acetaminophen (TYLENOL) 325 mg tablet Take 3 tablets by mouth every 6 hours as needed for pain. 07/08/2022 Active Comment on above: Take 3 tablets by mo uth every 6 hours as needed for pain. Take 2 tablets by mo uth every 8 hours as needed for pain (for pain.). Blood Pressure Monitor kit (20 sources) Start: [...] tablet by dale th once daily. lisinopril 20 mg oral tablet (20 sources) Angiotensin Converting Enzyme Inhibitor Start: 01-23-2025 take 1 tablet by mouth once daily lisinopril (ZESTRIL) 20 mg tablet Indications: Hypertension, essential Take 1 tablet by mouth once daily. 30 tablet 5 01/23/2025 Active Start: 01-18-2025 End: 01-23-2025 take 0.5 tablet by mouth once daily lisinopril (ZESTRIL) 40 mg tablet Indications: Hypertension, essential Take 0.5 tablets by mouth once daily. 30 tablet 5 01/18/2025 01/23/2025 Discontinued (Adjust Sig - Block E-Cancel) Start: [...] twice daily. 60 tablet 5 11/19/2021 Active Start: 10-18-2018 End: 01-18-2025 take 1 tablet by mouth once daily lisinopril (ZESTRIL) 40 mg tablet Indications: Hypertension, essential Take 1 tablet by mouth once daily. 30 tablet 5 06/26/2024 01/18/2025 Discontinued (Adjust Sig - Block E-Cancel) Comment on above: Take 1 tablet by [...] take 1 tablet by mouth once daily Thiamine Hcl (Vitamin B1) 100 mg tablet Active 100 mg PO DAILY July 06, 2022 1:00am Start: 10-18-2018 End: 06-18-2020 take 1 tablet by mouth once daily Thiamine Mononitrate (Vit B1) 100 mg tablet Discontinued 100 mg PO DAILY 30 30 October 18, 2018 12:00am June 18, 2020 10:20am Comment on above: Take 1 tablet by dale th once daily. vitamin b12 0.5 mg oral tablet (20 sources) Vitamin B12 Start: 02-07-2024 End: 10-05-2024 take 1 tablet by mouth once daily cyanocobalamin (VITAMIN B-12) 500 mcg tablet Take 1 tablet by mouth once daily. 30 tablet 11 10/06/2024 Active Start: 06-18-2020 End: 02-07-2024 cyanocobalamin (VITAMIN B-12 ) 1,000 mcg tab Take 1 tablet by mouth every other afternoon. 0 12/30/2023 Active Comment on above: Take 1 tablet by dale th once daily. Completed/Discontinued Medications Medication Drug Class(es) Dates Sig (Normalized) Sig (Original) amLODIPine 5 mg oral tablet (20 sources) Dihydropyridine Calcium Channel Glenys Start: 01-18-2025 End: 01-23-2025 take 1 tablet by mouth once daily amLODIPine (NORVASC) 5 mg tablet Take 1 tablet by mouth once daily. 30 tablet 5 01/18/2025 01/23/2025 Discontinued Start: 06-18-2020 End: 01-18-2025 take 1 tablet by mouth once daily amLODIPine (NORVASC) 10 mg tablet Take 1 tablet by mouth once daily. 30 tablet 5 11/06/2024 01/18/2025 Discontinued (Adjust Sig - Block E-Cancel) Start: 01-05-2019 End: 06-18-2020 Amlodipine 2.5 MG tablet Discontinued 1 {tbl} PO DAILY January 05, 2019 12:00am June 18, 2020 10:20am Comment on above: Take 1 tablet by dale th once daily. cyclobenzaprine hydrochloride 10 mg oral tablet (6 sources) Muscle Relaxant Start: End: take 1 tablet by mouth [...] triamterene 37.5 mg oral tablet (20 sources) Potassium-sparin g Diuretic, Thiazide Diuretic Start: take 1 tablet by mouth once daily triamterene-hydroCHLOR Othiazide (MAXZIDE-25) 37.5-25 mg per tablet Take 1 tablet by mouth once daily. 0 05/31/2022 Active Start: 10-18-2018 End: 01-20-2025 take 1 tablet by mouth once daily triamterene-hydroCHLOROthiazide (MAXZIDE ) 75-50 mg per tablet Take 1 tablet by mouth once daily. 30 tablet 5 11/19/2021 Active Comment on above: Take 1 tablet by dale th once daily. 1 tablet in the morn ing Orally Once a day 30 days loratadine 10 mg oral tablet (1 source) Start: 2018 End: 2018 take 1 tablet by mouth once daily Loratadine 10 mg tablet Discontinued 10 mg PO DAILY 30 30 0 October 18, 2018 12:00am May 29, 2019 12:31pm methylPREDNISolone (2 sources) Corticosteroid Start: 2022 End: 2022 methylPREDNISolone (MEDROL, MAYKEL,) 4 mg Dose-Pack Follow dosing instructions, take with food. 21 tablet 04/03/2023 04/09/2023 Start: 04-03-2023 End: 04-09-2023 methylPREDNISolone (MEDROL, MAYKEL,) 4 mg Dose-Pack Follow dosing instructions, take with food. 21 tablet 0 04/03/2023 04/09/2023 Active Comment on above: Follow dosing instru ctions, take with food. naproxen 500 mg oral tablet (1 source) Nonsteroidal Anti-inflammatory Drug Start: End: take 1 tablet by mouth twice daily as needed Naproxen 500 MG tablet Discontinued 500 mg PO TWICE DAILY NEEDED August 22, 2016 12:00am October 18, 2018 7:03pm oxyCODONE hydrochloride 5 mg oral tablet (5 sources) Opioid Agonist Start: End: take 1 tablet by mouth every eight hours as needed for pain oxyCODONE IR (ROXICODONE) 5 mg immediate release tablet Indications: Closed nondisplaced fracture of seventh cervical vertebra, unspecified fracture morphology, initial encounter ([facility]) Take 1 tablet by mouth every 8 [...] on above: Take 2 tablets by mo [facility] three times daily for 5 days. [...] above: Take 1 tablet by dale th every 8 hours as needed. Problems Active Problems Problem Classification Problem Date Documented Da te Episodic/Chronic Acute and unspecified renal failure (3 sources) Acute renal failure syndrome; Translations: [Acute kidney failure, unspecified] Onset: 01-23-2025 01-23-2025 Episodic Alcohol-related disorders (20 sources) Alcohol abuse; Translations: [Alcohol abuse, uncomplicated] Onset: 04-25-2018 11-11-2020 Chronic Conditions associated with dizziness or vertigo (1 source) Dizziness and giddiness; Translations: [Orthostatic lightheadedness] Onset: 02-08-2025 Episodic E Codes: Fall (20 sources) Fall from [...] soft tissue, and skin] 12-27-2023 Episodic Other aftercare (1 source) Long-term current use of drug therapy; Translations: [Other retirement (current) drug therapy] 06-21-2020 Episodic Other circulatory disease (1 source) Abnormal peripheral pulse; Translations: [Other specified symptoms and signs involving the circulatory and respiratory systems] 12-31-2022 Episodic Other circulatory disease (9 sources) Orthostatic hypotension; Translations: [Orthostatic hypotension] 06-26-2024 Episodic Other circulatory disease (1 source) Orthostatic hypotension; Translations: [Orthostatic hypotension] Onset: 01-18-2025 Episodic Other diseases of kidney and ureters (2 sources) Renal impairment; Translations: [Disorder of kidney and ureter, unspecified] Episodic Other fractures (2 sources) Compression fracture of thoracic spine; Translations: [Wedge compression fracture of first thoracic vertebra, sequela] Episodic Other fractures (2 sources) Closed fracture of cervical spine; Translations: [Fracture [...] conditions due to external causes (1 source) Closed injury of head; Translations: [Unspecified injury of head, initial encounter] 07-14-2022 Episodic Other lower respiratory disease (3 sources) Rib pain; Translations: [Pleurodynia] 01-18-2025 Episodic Other lower respiratory disease (1 source) Pleurodynia; Translations: [Rib pain] Onset: 01-18-2025 Episodic Peripheral and visceral atherosclerosis (20 sources) Peripheral vascular disease; Translations: [Peripheral vascular disease, unspecified] Onset: 01-01-2023 01-01-2023 Chronic Residual codes; unclassified (1 source) Bilateral lower limb edema; Translations: [Localized edema] 12-31-2022 Episodic Residual codes; unclassified (1 source) Illness, unspecified; Translations: [Illness, unspecified] Onset: 01-26-2025 Episodic Superficial injury; contusion (1 source) Contusion of right elbow; Translations: [Contusion of right elbow, initial encounter] 01-18-2025 Episodic Syncope (3 sources) Syncope; Translations: [Syncope and collapse] Onset: 02-08-2025 02-08-2025 Episodic Past or Other Problems Problem Classification [...] 06-08-2022 Episodic Genitourinary symptoms and ill-defined conditions (20 sources) Proteinuria; Translations: [Proteinuria, unspecified] Onset: 04-25-2018 [...] cervical vertebra, unspecified fracture morphology, initial encounter ([facility])] Onset: 07-06-2022 Episodic Other liver diseases (20 [...] [Spinal stenosis, cervical region] Onset: 07-17-2022 Episodic Unclassified (1 source) Contusion shoulder/arm 08-23-2016 Results Test Name Value Interpretation Reference Range [facility] YARITZA HENDERSON ([id number]) 1955 M Date Time Provider Department 02/14/25 FREDRICK FELICIANO During your visit today, we recorded the following information about you: Zoey Koenig RN 02/14/2025 1:17 PM Signed Patient calling in to update Jese LOUIS that he did make an appt with Nephrology as advised at his last OV. It is for 04/06/25. MAGDALENA Marrero Rayanne, PA-C 02/14/2025 2:20 PM Signed noted Allergies As of Date: 02/14/2025 (Not on File) Date Reviewed: 02/08/2025 Reviewed by: Steve Ochoa LPN - Fully Assessed Reason for Visit: Patient Update [1234] Prescriptions as of 02/14/2025 - lisinopril (ZESTRIL) 20 mg tablet Take 1 tablet by mouth [...] it down Problem List As Of Date 02/14/2025 Noted Resolved Hypertension, essential [I10] 02/07/2018 Alcohol [...] Elevated PSA [R97.20] 01/06/2024 Encounter Status:Closed by ERUM BEASLEY on 02/14/25 Normal [facility] Basic metabolic 2000 panelon 02-08-2025 Anion gap [Moles/Vol] 12 mmol/L Normal 8-15 [facility] Comment on above: Order Comment: Speci men Type: BLOOD SPECIMENOrdering Facility: [facility] Address: [address] [place] [address] Performed By: #### 2 4321-2 ####[facility] LABIA [id number] [place] [address] [place] Calcium [Mass/Vol] 9.1 mg/dL Normal 8.5-10.[address] [facility] Comment on above: Order Comment: Speci men Type: BLOOD SPECIMENOrdering Facility: [facility] Address: [address] [place] [address] Performed By: #### 2 4321-2 ####[facility] LABIA [id number] [place] [id number] [place] Chloride [Moles/Vol] 90 mmol/L Low 98-107 [facility] Comment on above: Order Comment: Speci men Type: BLOOD SPECIMENOrdering Facility: [facility] Address: [address] [place], [place] [address] Performed By: #### 2 4321-2 ####[facility] LABCLIA [id number] [address] [address] [place] CO2 [Moles/Vol] 23 mmol/L Normal 22-30 [facility] Comment on above: Order Comment: Speci men Type: BLOOD SPECIMENOrdering Facility: [facility] Address: [address] [place] [address] Performed By: #### 2 4321-2 ####[facility] LABCLIA [id number] [place] [address] [place] Creatinine [Mass/Vol] 1.18 mg/dL Normal 0.73-1.22 [facility] Comment on above: Order Comment: Speci men Type: BLOOD SPECIMENOrdering Facility: [facility] Address: [address] [place] [address] Performed By: #### 2 4321-2 ####[facility] LABIA [id number] [place] [address] [place] eGFRcr SerPlBld CKD-EPI 2020 66 mL/min/1.73m??? Normal >=60 [facility] Comment on above: Order Comment: Speci men Type: BLOOD SPECIMENOrdering Facility: [facility] Address: [address] [place] [address] Result Comment: Stormy mated Glomerular Filtration Rate [...] reflect actual GFR. Performed By: #### 2 4321-2 ####[facility] LABCLIA [id number] [place] [id number] [place] Glucose [Mass/Vol] 80 mg/dL Normal 74-[address] [facility] Comment on above: Order Comment: Speci men Type: BLOOD SPECIMENOrdering Facility: [facility] Address: [address] [place] [address] Result Comment: The [place] Diabetes Association (ADA) provides guidance for cutoff [...] Standards of Medical Care in Diabetes 2016, [place] [employer]. Diabetes Care. 2016.39(Suppl 1). Performed By: #### 2 4321-2 ####[facility] LABCLIA [id number] [place] [address] [place] Potassium [Moles/Vol] 4.4 mmol/L Normal 3.7-5.1 [facility] Comment on above: Order Comment: Speci men Type: BLOOD SPECIMENOrdering Facility: [facility] Address: [address] [place] [address] Performed By: #### 2 4321-2 ####[facility] LABCLIA [id number] [place] [id number] [place] Sodium [Moles/Vol] 125 mmol/L Low 136-[address] [facility] Comment on above: Order Comment: Speci men Type: BLOOD SPECIMENOrdering Facility: [facility] Address: [address] [place], [place] [address] Performed By: #### 2 4321-2 ####[facility] LABCLIA [id number] [place] [id number] [place] Urea nitrogen [Mass/Vol] 8 mg/dL Low 9-24 [facility] Comment on above: Order Comment: Speci men Type: BLOOD SPECIMENOrdering Facility: [facility] Address: [address] [place] [address] Performed By: #### 2 4321-2 ####[facility] LABCLIA [id number] [place] [address] [place] CBC W Auto Differential pane l (Bld)on 02-08-2025 Basophils (Bld) [#/Vol] 0.07 10*3/uL [facility] Basophils/100 WBC (Bld) 0.8 % [facility] Differential cell count method Nom (Bld) Auto [facility] Eosinophils (Bld) [#/Vol] 0.14 10*3/uL [facility] Eosinophils/100 WBC (Bld) 1.7 % [facility] Erythrocyte distribution width (RBC) [Ratio] 12.6 % 11.5 - 15.0 % [facility] Hematocrit (Bld) [Volume fraction] 42.3 % 39.0 - 51.0 % [facility] Hemoglobin (Bld) [Mass/Vol] 14.4 g/dL 13.0 - 17.0 g/dL [facility] Immature granulocytes (Bld) [#/Vol] [facility] Immature granulocytes/100 WBC (Bld) 0.2 % [facility] Interpretation and review of laboratory results Abnormal [facility] Lymphocytes (Bld) [#/Vol] 1.91 10*3/uL [facility] Lymphocytes/100 WBC (Bld) 23.0 % [facility] MCH (RBC) [Entitic mass] 31.0 pg 26.0 - 34.0 pg [facility] MCHC (RBC) [Mass/Vol] 34.0 g/dL 30.5 - 36.0 g/dL [facility] MCV (RBC) [Entitic vol] 91.2 fL 80.0 - 100.0 fL [facility] Monocytes (Bld) [#/Vol] 0.90 10*3/uL High NINF [facility] Monocytes/100 WBC (Bld) 10.8 % [facility] Neutrophils (Bld) [#/Vol] 5.28 10*3/uL [facility] Neutrophils/100 WBC (Bld) 63.5 % [facility] Nucleated RBC (Bld) [#/Vol] NINF [facility] Nucleated RBC/100 WBC (Bld) [Ratio] 0.0 % /100 WBC [facility] Platelet mean volume (Bld) [Entitic vol] 8.1 fL Low 9.0 - 12.7 fL [facility] Platelets (Bld) [#/Vol] 312 10*3/uL [facility] RBC (Bld) [#/Vol] 4.64 10*6/uL 4.20 - 6.0 0 m/uL [facility] WBC (Bld) [#/Vol] 8.32 10*3/uL [facility] Basophils (Bld) [#/Vol] 0.07 10*3/uL Normal <0.11 [facility] Comment on above: Order Comment: Speci men Type: BLOOD SPECIMENOrdering Facility: [facility] Address: [address] [place] [address] Performed By: #### 5 7021-8 ####[facility] LABCLIA [id number] [place] [address] [place] Basophils/100 WBC (Bld) 0.8 % Normal [facility] Comment on above: Order Comment: Speci men Type: BLOOD SPECIMENOrdering Facility: [facility] Address: [address] [place] [address] Performed By: #### 5 7021-8 ####[facility] LABCLIA [id number] [place] [address] [place] Differential cell count method Nom (Bld) Auto Normal [facility] Comment on above: Order Comment: Speci men Type: BLOOD SPECIMENOrdering Facility: [facility] Address: [address] [place] [address] Performed By: #### 5 7021-8 ####[facility] LABCLIA [id number] [place] [address] [place] Eosinophils (Bld) [#/Vol] 0.14 10*3/uL Normal <0.46 [facility] Comment on above: Order Comment: Speci men Type: BLOOD SPECIMENOrdering Facility: [facility] Address: [address] [place] [address] Performed By: #### 5 7021-8 ####[facility] LABCLIA [id number] [address] [address] [place] Eosinophils/100 WBC (Bld) 1.7 % Normal [facility] Comment on above: Order Comment: Speci men Type: BLOOD SPECIMENOrdering Facility: [facility] Address: [address] [place] [address] Performed By: #### 5 7021-8 ####[facility] LABCLIA [id number] [place] [address] [place] Erythrocyte distribution width (RBC) [Ratio] 12.6 % Normal 11.5-15.0 [facility] Comment on above: Order Comment: Speci men Type: BLOOD SPECIMENOrdering Facility: [facility] Address: [address] [place] [address] Performed By: #### 5 7021-8 ####[facility] LABCLIA [id number] [place] [id number] [place] Hematocrit (Bld) [Volume fraction] 42.3 % Normal 39.0-51.0 [facility] Comment on above: Order Comment: Speci men Type: BLOOD SPECIMENOrdering Facility: [facility] Address: [address] [place] [address] Performed By: #### 5 7021-8 ####[facility] LABCLIA [id number] [address] [address] [place] Hemoglobin (Bld) [Mass/Vol] 14.4 g/dL Normal 13.0-17.0 [facility] Comment on above: Order Comment: Speci men Type: BLOOD SPECIMENOrdering Facility: [facility] Address: [address] [place] [address] Performed By: #### 5 7021-8 ####[facility] LABCLIA [id number] [facility] [address] [place] [address] [place] Immature granulocytes (Bld) [#/Vol] 10*3/uL Normal <0.10 [facility] Comment on above: Order Comment: Speci men Type: BLOOD SPECIMENOrdering Facility: [facility] Address: [address] [place] [address] Performed By: #### 5 7021-8 ####[facility] LABCLIA [id number] [facility] [address], [facility] [place] Immature granulocytes/100 WBC (Bld) 0.2 % Normal [facility] Comment on above: Order Comment: Speci men Type: BLOOD SPECIMENOrdering Facility: [facility] Address: [address] [place] [address] Performed By: #### 5 7021-8 ####[facility] LABCLIA [id number] [address], [place] [address] [place] Lymphocytes (Bld) [#/Vol] 1.91 10*3/uL Normal 1.00-4.00 [facility] Comment on above: Order Comment: Speci men Type: BLOOD SPECIMENOrdering Facility: [facility] Address: [address] [place] [address] Performed By: #### 5 7021-8 ####[facility] LABCLIA [id number] [place] [id number] [place] Lymphocytes/100 WBC (Bld) 23.0 % Normal [facility] Comment on above: Order Comment: Speci men Type: BLOOD SPECIMENOrdering Facility: [facility] Address: [address] [place] [address] Performed By: #### 5 7021-8 ####[facility] LABCLIA [id number] [address] [place] [address] [place] MCH (RBC) [Entitic mass] 31.0 pg Normal 26.0-34.0 [facility] Comment on above: Order Comment: Speci men Type: BLOOD SPECIMENOrdering Facility: [facility] Address: [address] [place] [address] Performed By: #### 5 7021-8 ####[facility] LABCLIA [id number] [place] [address] [place] MCHC (RBC) [Mass/Vol] 34.0 g/dL Normal 30.5-36.0 [facility] Comment on above: Order Comment: Speci men Type: BLOOD SPECIMENOrdering Facility: [facility] Address: [address] [place] [address] Performed By: #### 5 7021-8 ####[facility] LABIA [id number] [place] [address] [place] MCV (RBC) [Entitic vol] 91.2 fL Normal 80.0-100.0 [facility] Comment on above: Order Comment: Speci men Type: BLOOD SPECIMENOrdering Facility: [facility] Address: [address] [place] [address] Performed By: #### 5 7021-8 ####[facility] LABIA [id number] [place] [address] [place] Monocytes (Bld) [#/Vol] 0.90 10*3/uL High <0.87 [facility] Comment on above: Order Comment: Speci men Type: BLOOD SPECIMENOrdering Facility: [facility] Address: [address] [place] [address] Performed By: #### 5 7021-8 ####[facility] LABIA [id number] [place] [address] [place] Monocytes/100 WBC (Bld) 10.8 % Normal [facility] Comment on above: Order Comment: Speci men Type: BLOOD SPECIMENOrdering Facility: [facility] Address: [address] [place] [address] Performed By: #### 5 7021-8 ####[facility] LABCLIA [id number] [address] [place] [address] [place] Neutrophils (Bld) [#/Vol] 5.28 10*3/uL Normal 1.45-7.50 [facility] Comment on above: Order Comment: Speci men Type: BLOOD SPECIMENOrdering Facility: [facility] Address: [address] [place] [address] Performed By: #### 5 7021-8 ####[facility] LABCLIA [id number] [address], [place] [address] [place] Neutrophils/100 WBC (Bld) 63.5 % Normal [facility] Comment on above: Order Comment: Speci men Type: BLOOD SPECIMENOrdering Facility: [facility] Address: [address] [place] [address] Performed By: #### 5 7021-8 ####[facility] LABCLIA [id number] [address], [place] [address] [place] Nucleated RBC (Bld) [#/Vol] 10*3/uL Normal <0.01 [facility] Comment on above: Order Comment: Speci men Type: BLOOD SPECIMENOrdering Facility: [facility] Address: [address] [place] [address] Performed By: #### 5 7021-8 ####[facility] LABCLIA [id number] [place] [address] [place] Nucleated RBC/100 WBC (Bld) [Ratio] 0.0 /100 WBC Normal [facility] Comment on above: Order Comment: Speci men Type: BLOOD SPECIMENOrdering Facility: [facility] Address: [address] [place] [address] Performed By: #### 5 7021-8 ####[facility] LABCLIA [id number] [address], [facility] [place] Platelet mean volume (Bld) [Entitic vol] 8.1 fL Low 9.0-12.7 [facility] Comment on above: Order Comment: Speci men Type: BLOOD SPECIMENOrdering Facility: [facility] Address: [address] [place] [address] Performed By: #### 5 7021-8 ####[facility] LABIA [id number] [place] [address] [place] Platelets (Bld) [#/Vol] 312 10*3/uL Normal 150-400 [facility] Comment on above: Order Comment: Speci men Type: BLOOD SPECIMENOrdering Facility: [facility] Address: [address] [place] [address] Performed By: #### 5 7021-8 ####[facility] LABIA [id number] [place] [address] [place] RBC (Bld) [#/Vol] 4.64 10*6/uL Normal 4.20-6.00 [facility] Comment on above: Order Comment: Speci men Type: BLOOD SPECIMENOrdering Facility: [facility] Address: [address] [place] [address] Performed By: #### 5 7021-8 ####[facility] LABIA [id number] [place] [address] [place] WBC (Bld) [#/Vol] 8.32 10*3/uL Normal 3.70-11.00 [facility] Comment on above: Order Comment: Speci men Type: BLOOD SPECIMENOrdering Facility: [facility] Address: [address] [place] [address] Performed By: #### 5 7021-8 ####[facility] LABIA [id number] [place] [id number] [place] CNOVon 02-08-2025 CNOV Office Visit (FAMPWS ) -- YARITZA HENDERSON ([id number]) 1955 M Date Time Provider Department 02/08/25 11:40 AM ERUM CASTANEDA During your visit today, we recorded the following information about you: Temperature Pulse Respiration Blood pressure 97.6 degrees 73/minute 16/minute 122/81 Weight 73.5 kg Erum Castaneda PA-C 02/08/2025 12:24 PM Signed Chief Complaint Patient presents with: Follow Up: Blood pressure HPI Yaritza Henderson is a 69 year old male who presents here today for recheck. Orthostatic Hypotension: - Yaritza Henderson reports improvement in lightheadedness with standing since the last visit. - Frequency of episodes has decreased; no recent falls. - Drinking 3-6 beers daily (12 oz cans), 1 Gatorade daily, and 3 cups of coffee every morning. - Denies drinking water, tea, or other fluids. - Previously seen by Dr. Villa, a relay checker, in November of last year; Yaritza has not followed up since. Past medical history, appointments, medications, allergies reviewed. [...] (EXEP) 06/21/2020 EF=60%, mild menchaca dysf, 1+ [place] COLONOSCOPY 01/09/2019 Dr. Gonzalez, repeat 10 yrs [...] Thyroid No Family History Patient Allergies ALLERGIES Not on File Current Medications Current Outpatient Medications on File Prior to Visit Medication Sig lisinopril (ZESTRIL) 20 mg tablet Take 1 tablet by mouth [...] for pain. (Patient not taking: Reported on 02/08/2025) No current facility-administered medications on file prior to visit. Social History SOCIAL HISTORY[1] Review of Symptoms REVIEW OF SYSTEMS Neurological: (+) lightheadedness, (-) falls SEE HPI EXAM: BP 122/81 (BP Site: Left Arm, BP Position: Sitting, BP Cuff Size: Regular Adult) Pulse 73 Temp 36.4 ?C (97.6 ?F) Resp 16 Wt 73.5 kg (162 lb) SpO2 98% BMI 23.46 kg/m? General Appearance: Well appearing, alert, in no acute distress, well-hydrated, well nourished.. Neck: Supple, no adenopathy; thyroid symmetric, normal size, no bruits. Lungs: Lungs clear to auscultation. No wheezing, rhonchi, rales.. He (more content not included)... Normal [facility] 01-25-2025 [facility] Telephone ([facility]) -- YARITZA HENDERSON ([id number]) 1955 M Date Time Provider Department 01/25/25 ERUM CASTANEDA [facility] During your visit today, we recorded the following information about you: Erum Castaneda PA-C 01/25/2025 8:19 AM Signed Let patient know that his xray does show a fracture of the 10th rib on right side. How's his pain currently. KYLAH Bryant HEATHER 01/25/2025 9:13 AM Signed Spoke with patient at this time and advised of below results. States that he is having mediocre pain; nothing that is really bothersome. Is using Tylenol when needed for any discomfort. CARINE Fernandes Rayanne, PA-C 01/25/2025 11:33 AM Signed Noted. Allergies As of Date: 01/25/2025 (Not on File) Date Reviewed: 07/10/2024 Reviewed by: Steve Ochoa LPN - Fully Assessed Reason for Visit: Results [95] Prescriptions as of 01/25/2025 - lisinopril (ZESTRIL) 20 mg tablet Take 1 tablet by mouth [...] it down Problem List As Of Date 01/25/2025 Noted Resolved Hypertension, essential [I10] 02/07/2018 Alcohol [...] Elevated PSA [R97.20] 01/06/2024 Encounter Status:Closed by ERUM BEASLEY on 01/25/25 Normal [facility] Basic metabolic 2000 panelon 01-23-2025 Anion gap [Moles/Vol] 14 mmol/L Normal 8-15 [facility] Comment on above: Order Comment: Speci men Type: BLOOD SPECIMENOrdering Facility: [facility] Address: [address] [place] [address] Performed By: #### 2 4321-2 ####[facility] LABCLIA [id number] [address] [address] [place] Calcium [Mass/Vol] 8.9 mg/dL Normal 8.5-10.[address] [facility] Comment on above: Order Comment: Speci men Type: BLOOD SPECIMENOrdering Facility: [facility] Address: [address] [place] [address] Performed By: #### 2 4321-2 ####[facility] LABCLIA [id number] [place] [id number] [place] Chloride [Moles/Vol] 92 mmol/L Low 98-107 [facility] Comment on above: Order Comment: Speci men Type: BLOOD SPECIMENOrdering Facility: [facility] Address: [address] [place], [place] [address] Performed By: #### 2 4321-2 ####[facility] LABCLIA [id number] [place] [id number] [place] CO2 [Moles/Vol] 22 mmol/L Normal 22-30 [facility] Comment on above: Order Comment: Speci men Type: BLOOD SPECIMENOrdering Facility: [facility] Address: [address] [place], [place] [address] Performed By: #### 2 4321-2 ####[facility] LABCLIA [id number] [address] [address] [place] Creatinine [Mass/Vol] 0.98 mg/dL Normal 0.73-1.22 [facility] Comment on above: Order Comment: Charlene dewitt Type: BLOOD SPECIMENOrdering Facility: [facility] Address: [address] [place] [address] Performed By: #### 2 4321-2 ####[facility] LABCLIA [id number] [place] [address] [place] eGFRcr SerPlBld CKD-EPI 2020 82 mL/min/1.73m??? Normal >=60 [facility] Comment on above: Order Comment: Charlene dewitt Type: BLOOD SPECIMENOrdering Facility: [facility] Address: [address] [place] [address] Result Comment: Stormy mated Glomerular Filtration Rate [...] reflect actual GFR. Performed By: #### 2 4321-2 ####[facility] LABCLIA [id number] [place] [address] [place] Glucose [Mass/Vol] 66 mg/dL Low 74-[address] [facility] Comment on above: Order Comment: Charlene dewitt Type: BLOOD SPECIMENOrdering Facility: [facility] Address: [address] [place] [address] Result Comment: The [place] Diabetes Association (ADA) provides guidance for cutoff [...] Standards of Medical Care in Diabetes 2016, [place] [employer]. Diabetes Care. 2016.39(Suppl 1). Performed By: #### 2 4321-2 ####[facility] LABIA [id number] [place] [id number] [place] Potassium [Moles/Vol] 4.0 mmol/L Normal 3.7-5.1 [facility] Comment on above: Order Comment: Speci men Type: BLOOD SPECIMENOrdering Facility: [facility] Address: [address] [place] [address] Performed By: #### 2 4321-2 ####[facility] LABIA [id number] [place] [address] [place] Sodium [Moles/Vol] 128 mmol/L Low 136-[address] [facility] Comment on above: Order Comment: Speci men Type: BLOOD SPECIMENOrdering Facility: [facility] Address: [address] [place] [address] Performed By: #### 2 4321-2 ####[facility] LABIA [id number] [place] [id number] [place] Urea nitrogen [Mass/Vol] 10 mg/dL Normal 9-24 [facility] Comment on above: Order Comment: Speci men Type: BLOOD SPECIMENOrdering Facility: [facility] Address: [address] [place] [address] Performed By: #### 2 4321-2 ####[facility] [id number] [place] [id number] [place] CNOVon 01-23-2025 CNOV Office Visit (FAMPWS ) -- YARITZA HENDERSON ([id number]) 1955 Date Time Provider Department 01/23/25 1:00 PM ERUM CASTANEDA During your visit today, we recorded the following information about you: Pulse Respiration Blood pressure Weight 80/minute 14/minute 104/69 74.8 kg Erum Castaneda PA-C 01/23/2025 1:43 PM Signed Chief Complaint Patient presents with: ER F/U HPI Yaritza Henderson is a 69 year old male who presents here today for ER Follow Up.. Lightheadedness: - Yaritza Henderson has had persistent lightheadedness for 1-2 months. - No improvement since medication adjustments 4 days ago. - Denies feeling like he is going to pass out. Hyponatremia: - Yaritza's sodium level was 128 on 01/18. - Yaritza's sodium level was 127 in the ER on 01/20. - Drinking Gatorade to help with sodium levels. Falls: - Yaritza reports a couple of falls, with at least one fall on 01/14. - Rib pain following the fall on 01/14; awaiting x-ray results. ER Visit: - Yaritza presented to the ER on 01/20. - Received IV saline fluids and was discharged home. - Blood pressure in the ER was 134/86 mmHg. - per documentation, patient denied weakness or confusion in the ER. - Creatinine returned to baseline, and GFR improved to 70. Hypertension: - Yaritza's home blood pressure reading yesterday was 124/94 mmHg. - Currently taking amlodipine 5 mg and lisinopril 40 mg (half tablet). Past medical history, appointments, medications, allergies reviewed. [...] (EXEP) 06/21/2020 EF=60%, mild menchaca dysf, 1+ [place] COLONOSCOPY 01/09/2019 Dr. Gonzalez, repeat 10 yrs [...] Thyroid No Family History Patient Allergies ALLERGIES Not on File Current Medications Current Outpatient Medications on File Prior to Visit Medication Sig amLODIPine (NORVASC) 5 mg tablet Take 1 tablet by mouth once daily. lisinopril (ZESTRIL) 40 mg tablet Take 0.5 tablets by mouth once daily. cyanocobalamin (VITAMIN B-12) [...] HISTORY[1] Review of Symptoms REVIEW OF SYSTEMS (more content not included)... Normal [facility] Absolute lymphocyte countOrd ered By: Chai Frye on 01-20-2025 Lymphocytes Auto (Unsp spec) [#/Vol] 1.41 10*3/uL 0.83-4.51 [facility] Absolute neutrophil countOrd ered By: Chai Frye on 01-20-2025 Neutrophils (Bld) [#/Vol] 7.5 10*3/uL 2.0-7.7 [facility] Anion gap in Serum or Plasma Ordered By: Chai Frye on 01-20-2025 Anion gap [Moles/Vol] 15 mmol/L 5-15 [facility] Automated lymphocyte count a s percentage of total leukocytesOrdered By: Chai Frye on 01-20-2025 Lymphocytes/100 WBC Auto (Unsp spec) 13.7 % Low 19-41 [facility] BUN/creatinine ratioOrdered By: Chai Frye on 01-20-2025 Urea nitrogen/Creatinine [Mass ratio] 13.8 mg/mg 10- [facility] Basic Metabolic Profile (BMP )on 01-20-2025 BUN/CRE 13.8 RATIO Normal -20 [facility] Comment on above: Performed By: #### L 500.2500, L100.0100 #### [facility] [address] [place], [address] Calcium [Mass/Vol] 9.2 mg/dL Normal 7.6-11.0 [facility] Comment on above: Performed By: #### L 500.2500, L100.0100 #### [facility] [address] [place], [address] Chloride [Moles/Vol] 90 mmol/L Low 98-108 [facility] Comment on above: Performed By: #### L 500.2500, L100.0100 #### [facility] [address] [place], [address] CO2 [Moles/Vol] 22.8 mmol/L Normal 21.0-32.0 [facility] Comment on above: Performed By: #### L 500.2500, L100.0100 #### [facility] [address] [place], [address] Creatinine [Mass/Vol] 1.12 mg/dL Normal 0.70-1.20 [facility] Comment on above: Performed By: #### L 500.2500, L100.0100 #### [facility] [address] [place], [address] ECRCL 62.25 ml/min Normal 50-250 [facility] Comment on above: Performed By: #### L 500.2500, L100.0100 #### [facility] [address] [place], [address] GAP 15 Normal 5-15 [facility] Comment on above: Performed By: #### L 500.2500, L100.0100 #### [facility] [address] [place], [address] GFR/1.73 sq M.predicted among non-blacks MDRD (S/P/Bld) [Vol rate/Area] 70 mL/min/{1.73_m2} Normal >60 [facility] Comment on above: Result Comment: mL/m in/1.73m2 CKD-EPI Creatinine Equation (2020) Performed By: #### L 500.2500, L100.0100 #### [facility] [address] [place], [address] Glucose [Mass/Vol] 102 mg/dL High 70-99 [facility] Comment on above: Performed By: #### L 500.2500, L100.0100 #### [facility] [address] [place], [address] Potassium [Moles/Vol] 4.0 mmol/L Normal 3.3-5.1 [facility] Comment on above: Performed By: #### L 500.2500, L100.0100 #### [facility] [address] [place], [address] Sodium [Moles/Vol] 127 mmol/L Low 133-145 [facility] Comment on above: Performed By: #### L 500.2500, L100.0100 #### [facility] [address] [place], [address] Urea nitrogen [Mass/Vol] 15 mg/dL Normal 4-19 [facility] Comment on above: Performed By: #### L 500.2500, L100.0100 #### [facility] [address] [place], [address] Basophil percentageOrdered B y: Chai Frye on 01-20-2025 Basophils/100 WBC (Bld) 0.6 % 0-1 [facility] CBC W/Diff, Automatedon 12-30 Absolute Lymph 1.41 X10 3/uL Normal 0.83-4.51 [facility] Comment on above: Performed By: #### L 500.2500, L100.0100 #### [facility] [address] [place], [address] Absolute Neut 7.5 X10 3/uL Normal 2.0-7.7 [facility] Comment on above: Performed By: #### L 500.2500, L100.0100 #### [facility] [address] [place], [address] Basophils/100 WBC (Bld) 0.6 % Normal 0-1 [facility] Comment on above: Performed By: #### L 500.2500, L100.0100 #### [facility] [address] [place], [address] Eosinophils/100 WBC (Bld) 0.8 % Normal 0-5 [facility] Comment on above: Performed By: #### L 500.2500, L100.0100 #### [facility] [address] [place], [address] Erythrocyte distribution width (RBC) [Ratio] 12.1 % Normal 11.6-14.6 [facility] Comment on above: Performed By: #### L 500.2500, L100.0100 #### [facility] [address] [place], [address] Hematocrit (Bld) [Volume fraction] 43.9 % Normal 40-54 [facility] Comment on above: Performed By: #### L 500.2500, L100.0100 #### [facility] [address] [place], [address] Hemoglobin (Bld) [Mass/Vol] 15.6 g/dL Normal 13.0-16.5 [facility] Comment on above: Performed By: #### L 500.2500, L100.0100 #### [facility] [address] [place], [address] IG% 0.500 Normal 0.0-0.9 [facility] Comment on above: Result Comment: IG% - Immature Granulocytes (promyelocytes, myelocytes and metamyelocytes) > 1% indicates that a LEFT SHIFT is Present. Performed By: #### L 500.2500, L100.0100 #### [facility] [address] [place], [address] Lymphocytes/100 WBC (Bld) 13.7 % Low 19-41 [facility] Comment on above: Performed By: #### L 500.2500, L100.0100 #### [facility] [address] [place], [address] MCH (RBC) [Entitic mass] 32.0 pg Normal 27.0-32.0 [facility] Comment on above: Performed By: #### L 500.2500, L100.0100 #### [facility] [address] [place], [address] MCHC (RBC) [Mass/Vol] 35.5 g/dL Normal 32-36 [facility] Comment on above: Performed By: #### L 500.2500, L100.0100 #### [facility] [address] [place], [address] MCV (RBC) [Entitic vol] 90.0 fL Normal 80-94 [facility] Comment on above: Performed By: #### L 500.2500, L100.0100 #### [facility] [address] [place], [address] Monocytes/100 WBC (Bld) 11.2 % High 0-10 [facility] Comment on above: Performed By: #### L 500.2500, L100.0100 #### [facility] [address] [place], [address] Neutrophils/100 WBC (Bld) 73.2 % High 47-70 [facility] Comment on above: Performed By: #### L 500.2500, L100.0100 #### [facility] [address] [place], [address] Nucleated RBC (Bld) [#/Vol] 0 10*3/uL Normal 0-5 [facility] Comment on above: Performed By: #### L 500.2500, L100.0100 #### [facility] [address] [place], [address] Platelet mean volume (Bld) [Entitic vol] 7.5 fL Normal 6.2-12.0 [facility] Comment on above: Performed By: #### L 500.2500, L100.0100 #### [facility] [address] [place], [address] Platelets (Bld) [#/Vol] 273 10*3/uL Normal 150-450 [facility] Comment on above: Performed By: #### L 500.2500, L100.0100 #### [facility] [address] [place], [address] RBC (Bld) [#/Vol] 4.88 10*6/uL Normal 4.6-6.2 [facility] Comment on above: Performed By: #### L 500.2500, L100.0100 #### [facility] [address] [place], [address] RDW SD 40.0 fl Normal 35.1-43.9 [facility] Comment on above: Performed By: #### L 500.2500, L100.0100 #### [facility] [address] [place], [address] WBC (Bld) [#/Vol] 10.3 10*3/uL Normal 4.4-11.0 [facility] Comment on above: Performed By: #### L 500.2500, L100.0100 #### [facility] [address] [place], [address] Carbon dioxide, total [Moles /volume] in Central venous bloodOrdered By: Chai Frye on 01-20-2025 CO2 [Moles/Vol] 22.8 mmol/L 21.0-32.0 [facility] Chloride assayOrdered By: Leslie Frye on 01-20-2025 Chloride [Moles/Vol] 90 mmol/L Low 98-108 [facility] Emergency Department Summary on 01-20-2025 Emergency Department Summary [facility] Medical Records Department [address] [place] [address] Emergency Department Summary 01/20/25 MR#: [id number] Acct: [id number] Name: YARITZA HENDERSON Winsome Rep #: [id number] : 1955 69 From: Chai Frye MD PCP: Dr. Fredrick Feliciano MD Status:REG ER Location: ED HPI History of Present Illness Chief Complaint: General Illness Informant: patient Narrative Narrative: 69-year-old male states he was sent in because his sodium was abnormal when it was drawn a day or 2 ago. He states it was a routine 6-month checkup and he was having labs done routinely. He has been and is now asymptomatic. No medication changes, he takes medications for high blood pressure. He states he is an alcohol user, used to drink heavily, but he had a fall down the steps remotely, and so he significantly decrease his usage to about two 24 ounce beers per day. He has not had any yet this morning. He does not feel shaky or have withdrawal symptoms in the mornings. He denies any problems urinating. 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 Alcohol abuse Essential (primary) hypertension Home Medications ???Medication ???Instructions ???Recorded ???Last Taken ???Type lisinopril 40 mg tablet 40 mg PO DAILY 30 days #30 tabs 01/09/19 09:00 History 40 MG amlodipine 10 mg tablet 10 mg PO DAILY 06/18/20 Unknown Hi story cyanocobalamin (vitamin B-12) 1,000 mcg PO DAILY 06/18/20 Unknow n History 1,000 mcg tablet thiamine HCl (vitamin B1) 100 mg 100 mg PO DAILY 07/06/22 Unknown H istory tablet Allergy/AdvReac Type Severity Reaction Status Date / Time No Known Allergies Allergy Verified 07/06/22 05:57 Social History Smoking Status: Former smoker quit date: 05/31/74 pack-years: 11 alcohol intake: current alcohol intake frequency: 3 or more drinks per day Alcohol type: beer ROS ROS ED Constitutional Constitutional ED: Denies chills or fever(s) Eyes Eyes: Denies change in vision or diplopia ENT ENT ED: Denies rhinorrhea or sore throat Cardiovascular Cardiovascular: Denies chest pain or palpitations Respiratory/Chest Respiratory/Chest: Denies cough or dyspnea Gastrointestinal Gastrointestinal: Denies abdominal pain, diarrhea, nausea or vomiting Genitourinary Genitourinary ED: Denies dysuria or hematuria Musculoskeletal Musculoskeletal: Denies back pain or neck pain Integumentary Denies abscess or rash Neurologic Neurologic: Denies headache(s), paresthesias or weakness Psychiatric Psychiatric: Denies anxiety or suicidal thoughts EXAM Physical Exam Const Vital Signs: 01/20/25 09:41 01/20/25 10:04 01/20/25 10:59 Temperature 98.9 F Temperature Source Oral Pulse Rate 84 70 Respiratory Rate 18 14 Respiratory Effort Normal Non-Labored Respiratory Pattern Normal Blood Pressure 116/87 H 137/88 H Blood Pressure Mean 96 104 Pulse Ox 100 100 Oxygen Delivery Method Room Air Room Air Positive well nourished and well developed General Appearance ED: well developed and NAD HEENT Reports moist mucous membranes normocephalic and atraumatic Eyes PERRL and EOMs intact bilaterally Neck full ROM and supple Resp normal respiratory effort and clear to auscultation bilaterally Cardio regular rate, regular rhythm and no murmurs GI non-tender and non-distended Auscultation: normoactive bowel sounds Palpation: soft Back/Spine no CVA tenderness General Back: other FROM Extremity normal to inspection General Extremety ED: Negative for edema, pulses abnormal or tenderness General Extremity: Negative for edema or pulses abnormal Neuro oriented x3, CN's II-XII intact bilaterally and no sensory deficits noted Sensorium / Orientation: awake and alert Motor Exam: strength 5/5 throughout Skin no rashes or lesions noted and no wounds MDM MDM MDM Narrative Medical decision making narrative: Repeated the patient's labs while we started some slow saline over the next couple hours. His sodium was 127 before we gave him the saline. He is asymptomatic does not have weakness or confusion. His alcohol and his HCTZ I suspect are both contributing to his hyponatremia. At this level and without symptoms he does not require admission at this time. I am having him discontinue the triamterene/HCTZ, and follow-up with his doctor as an outpatient. Also encouraged to try to curb his alcohol use possible. Lab Data Attestation: I reviewed the patient's lab results. Labs: Laboratory Results - last 24 hr 01/20/25 10:23 WBC 10.3 RBC 4.88 Hgb 15.6 Hct 43.9 MCV 90.0 MCH 32.0 MCHC 35.5 RDW Std Deviation 40.0 RDW Coef (more content not included)... Normal [facility] Eosinophil percentageOrdered By: Chai Frye on 01-20-2025 Eosinophils/100 WBC (Bld) 0.8 % 0-5 [facility] Erythrocyte distribution wid th ratioOrdered By: Chai Frye on 01-20-2025 Erythrocyte distribution width (RBC) [Ratio] 12.1 % 11.6-14.6 [facility] Erythrocyte distribution wid th standard deviationOrdered By: Chai Frye on 01-20-2025 Erythrocyte distribution width (RBC) [Ratio] 40.0 fl 35.1-43.9 [facility] Glomerular filtration rate ( GFR) estimation/1.73 sq m using serum, plasma, or whole bOrdered By: Chai Frye on 01-20-2025 GFR/1.73 sq M.predicted among non-blacks MDRD (S/P/Bld) [Vol rate/Area] 70 mL/min/{1.73_m2} >60 [facility] Comment on above: mL/min/1.73m2 CKD-EP I Creatinine Equation (2020) Hematocrit Auto (Bld) [Volum e fraction]Ordered By: Chai Frye on 01-20-2025 Hematocrit (Bld) [Volume fraction] 43.9 % 40-54 [facility] Hemoglobin measurementOrdere d By: Chai Frye on 01-20-2025 Hemoglobin (Bld) [Mass/Vol] 15.6 g/dL 13.0-16.5 [facility] Immature granulocytes/100 WB C Auto (Bld)Ordered By: Chai Frye 01-20-2025 Immature granulocytes/100 WBC (Bld) 0.500 % 0.0-0.9 [facility] Comment on above: IG% - Immature Granu locytes (promyelocytes, myelocytes and metamyelocytes) > 1% indicates that a LEFT SHIFT is Present. MCV (mean corpuscular volume ) determinationOrdered By: Chai Frye on 01-20-2025 MCV (RBC) [Entitic vol] 90.0 fL 80-94 [facility] Mean corpuscular hemoglobin (MCH) determinationOrdered By: Chai Frye 01-20-2025 MCH (RBC) [Entitic mass] 32.0 pg 27.0-32.0 [facility] Mean corpuscular hemoglobin concentration (MCHC) determinationOrdered By: Chai Frye on 01-20-2025 MCHC (RBC) [Mass/Vol] 35.5 g/dL 32-36 [facility] Mean platelet volume determi nationOrdered By: Chai Frye on 01-20-2025 Platelet mean volume (Bld) [Entitic vol] 7.5 fL 6.2-12.0 [facility] Monocyte percentageOrdered B y: Chai Frye on 01-20-2025 Monocytes/100 WBC (Bld) 11.2 % High 0-10 [facility] Neutrophil percentageOrdered By: Chai Frye on 01-20-2025 Neutrophils/100 WBC (Bld) 73.2 % High 47-70 [facility] Nucleated red blood cell per centageOrdered By: Chai Frye on 01-20-2025 Nucleated RBC/100 WBC (Bld) [Ratio] 0 % 0-5 [facility] Platelet countOrdered By: Leslie Frye on 01-20-2025 Platelets (Bld) [#/Vol] 273 10*3/uL 150-450 [facility] Potassium measurement (mass/ volume)Ordered By: Chai Frye on 01-20-2025 Potassium (Unsp spec) [Mass/Vol] 4.0 mmol/L 3.3-5.1 [facility] RBC Auto (Bld) [#/Vol]Ordere d By: Chai Frye on 01-20-2025 RBC (Bld) [#/Vol] 4.88 10*6/uL 4.6-6.2 [facility] Serum creatinine measurement (mass/volume)Ordered By: Chai Frye on 01-20-2025 Creatinine [Mass/Vol] 1.12 mg/dL 0.70-1.20 [facility] Serum glucose measurement (m ass/volume)Ordered By: Chai Frye on 01-20-2025 Glucose [Mass/Vol] 102 mg/dL High 70-99 [facility] Serum or plasma calcium valencia urement (mass/volume)Ordered By: Chai Frye on 01-20-2025 Calcium [Mass/Vol] 9.2 mg/dL 7.6-11.0 [facility] Serum or plasma urea nitroge n measurement (mass/volume)Ordered By: Chai Frye on 01-20-2025 Urea nitrogen [Mass/Vol] 15 mg/dL 4-19 [facility] Sodium levelOrdered By: Odin Frye on 01-20-2025 Sodium [Moles/Vol] 127 mmol/L Low 133-145 [facility] White blood cell (WBC) count Ordered By: Chai Frye on 01-20-2025 WBC (Bld) [#/Vol] 10.3 10*3/uL 4.4-11.0 [facility] CBC W Auto Differential pane l (Bld)on 01-18-2025 Basophils (Bld) [#/Vol] 0.07 10*3/uL [facility] Basophils/100 WBC (Bld) 0.6 % [facility] Differential cell count method Nom (Bld) Auto [facility] Eosinophils (Bld) [#/Vol] 0.10 10*3/uL [facility] Eosinophils/100 WBC (Bld) 0.8 % [facility] Erythrocyte distribution width (RBC) [Ratio] 12.9 % 11.5 - 15.0 % [facility] Hematocrit (Bld) [Volume fraction] 44.9 % 39.0 - 51.0 % [facility] Hemoglobin (Bld) [Mass/Vol] 15.2 g/dL 13.0 - 17.0 g/dL [facility] Immature granulocytes (Bld) [#/Vol] 0.06 10*3/uL [facility] Immature granulocytes/100 WBC (Bld) 0.5 % [facility] Interpretation and review of laboratory results Abnormal [facility] Lymphocytes (Bld) [#/Vol] 1.77 10*3/uL [facility] Lymphocytes/100 WBC (Bld) 14.6 % [facility] MCH (RBC) [Entitic mass] 31.6 pg 26.0 - 34.0 pg [facility] MCHC (RBC) [Mass/Vol] 33.9 g/dL 30.5 - 36.0 g/dL [facility] MCV (RBC) [Entitic vol] 93.3 fL 80.0 - 100.0 fL [facility] Monocytes (Bld) [#/Vol] 1.30 10*3/uL High NINF [facility] Monocytes/100 WBC (Bld) 10.7 % [facility] Neutrophils (Bld) [#/Vol] 8.81 10*3/uL High [facility] Neutrophils/100 WBC (Bld) 72.8 % [facility] Nucleated RBC (Bld) [#/Vol] NINF [facility] Nucleated RBC/100 WBC (Bld) [Ratio] 0.0 % /100 WBC [facility] Platelet mean volume (Bld) [Entitic vol] 8.1 fL Low 9.0 - 12.7 fL [facility] Platelets (Bld) [#/Vol] 302 10*3/uL [facility] RBC (Bld) [#/Vol] 4.81 10*6/uL 4.20 - 6.0 0 m/uL [facility] WBC (Bld) [#/Vol] 12.11 10*3/uL [facility] Basophils (Bld) [#/Vol] 0.07 10*3/uL Normal <0.11 [facility] Comment on above: Order Comment: Speci men Type: BLOOD SPECIMENOrdering Facility: [facility] Address: [address] [place] [address] Performed By: #### 5 7021-8 ####[facility] LABCLIA [id number] [address] [place] Basophils/100 WBC (Bld) 0.6 % Normal [facility] Comment on above: Order Comment: Speci men Type: BLOOD SPECIMENOrdering Facility: [facility] Address: [address] [place] [address] Performed By: #### 5 7021-8 ####[facility] LABCLIA [id number] [place] [address] [place] Differential cell count method Nom (Bld) Auto Normal [facility] Comment on above: Order Comment: Speci men Type: BLOOD SPECIMENOrdering Facility: [facility] Address: [address] [place] [address] Performed By: #### 5 7021-8 ####[facility] LABCLIA [id number] [address], [place] [address] [place] Eosinophils (Bld) [#/Vol] 0.10 10*3/uL Normal <0.46 [facility] Comment on above: Order Comment: Speci men Type: BLOOD SPECIMENOrdering Facility: [facility] Address: [address] [place] [address] Performed By: #### 5 7021-8 ####[facility] LABCLIA [id number] [facility] [address], [place] [address] [place] Eosinophils/100 WBC (Bld) 0.8 % Normal [facility] Comment on above: Order Comment: Speci men Type: BLOOD SPECIMENOrdering Facility: [facility] Address: [address] [place] [address] Performed By: #### 5 7021-8 ####[facility] LABCLIA [id number] [address], [place] [address] [place] Erythrocyte distribution width (RBC) [Ratio] 12.9 % Normal 11.5-15.0 [facility] Comment on above: Order Comment: Speci men Type: BLOOD SPECIMENOrdering Facility: [facility] Address: [address] [place] [address] Performed By: #### 5 7021-8 ####[facility] LABCLIA [id number] [place] [address] [place] Hematocrit (Bld) [Volume fraction] 44.9 % Normal 39.0-51.0 [facility] Comment on above: Order Comment: Speci men Type: BLOOD SPECIMENOrdering Facility: [facility] Address: [address] [place] [address] Performed By: #### 5 7021-8 ####[facility] LABCLIA [id number] [address], [facility] [place] Hemoglobin (Bld) [Mass/Vol] 15.2 g/dL Normal 13.0-17.0 [facility] Comment on above: Order Comment: Speci men Type: BLOOD SPECIMENOrdering Facility: [facility] Address: [address] [place] [address] Performed By: #### 5 7021-8 ####[facility] LABCLIA [id number] [place] [id number] [place] Immature granulocytes (Bld) [#/Vol] 0.06 10*3/uL Normal <0.10 [facility] Comment on above: Order Comment: Speci men Type: BLOOD SPECIMENOrdering Facility: [facility] Address: [address] [place] [address] Performed By: #### 5 7021-8 ####[facility] LABCLIA [id number] [place] [address] [place] Immature granulocytes/100 WBC (Bld) 0.5 % Normal [facility] Comment on above: Order Comment: Speci men Type: BLOOD SPECIMENOrdering Facility: [facility] Address: [address] [place] [address] Performed By: #### 5 7021-8 ####[facility] LABCLIA [id number] [place] [address] [place] Lymphocytes (Bld) [#/Vol] 1.77 10*3/uL Normal 1.00-4.00 [facility] Comment on above: Order Comment: Speci men Type: BLOOD SPECIMENOrdering Facility: [facility] Address: [address] [place] [address] Performed By: #### 5 7021-8 ####[facility] LABCLIA [id number] [place] [address] [place] Lymphocytes/100 WBC (Bld) 14.6 % Normal [facility] Comment on above: Order Comment: Speci men Type: BLOOD SPECIMENOrdering Facility: [facility] Address: [address] [place] [address] Performed By: #### 5 7021-8 ####[facility] LABIA [id number] [place] [address] [place] MCH (RBC) [Entitic mass] 31.6 pg Normal 26.0-34.0 [facility] Comment on above: Order Comment: Speci men Type: BLOOD SPECIMENOrdering Facility: [facility] Address: [address] [place] [address] Performed By: #### 5 7021-8 ####[facility] LABIA [id number] [place] [address] [place] MCHC (RBC) [Mass/Vol] 33.9 g/dL Normal 30.5-36.0 [facility] Comment on above: Order Comment: Speci men Type: BLOOD SPECIMENOrdering Facility: [facility] Address: [address] [place] [address] Performed By: #### 5 7021-8 ####[facility] [id number] [place] [address] [place] MCV (RBC) [Entitic vol] 93.3 fL Normal 80.0-100.0 [facility] Comment on above: Order Comment: Speci men Type: BLOOD SPECIMENOrdering Facility: [facility] Address: [address] [place] [address] Performed By: #### 5 7021-8 ####[facility] [id number] [place] [address] [place] Monocytes (Bld) [#/Vol] 1.30 10*3/uL High <0.87 [facility] Comment on above: Order Comment: Speci men Type: BLOOD SPECIMENOrdering Facility: [facility] Address: [address] [place] [address] Performed By: #### 5 7021-8 ####[facility] [id number] [place] [address] [place] Monocytes/100 WBC (Bld) 10.7 % Normal [facility] Comment on above: Order Comment: Speci men Type: BLOOD SPECIMENOrdering Facility: [facility] Address: [address] [place] [address] Performed By: #### 5 7021-8 ####[facility] LABCLIA [id number] [place] [address] [place] Neutrophils (Bld) [#/Vol] 8.81 10*3/uL High 1.45-7.50 [facility] Comment on above: Order Comment: Speci men Type: BLOOD SPECIMENOrdering Facility: [facility] Address: [address] [place] [address] Performed By: #### 5 7021-8 ####[facility] LABCLIA [id number] [place] [address] [place] Neutrophils/100 WBC (Bld) 72.8 % Normal [facility] Comment on above: Order Comment: Speci men Type: BLOOD SPECIMENOrdering Facility: [facility] Address: [address] [place] [address] Performed By: #### 5 7021-8 ####[facility] LABCLIA [id number] [place] [address] [place] Nucleated RBC (Bld) [#/Vol] 10*3/uL Normal <0.01 [facility] Comment on above: Order Comment: Speci men Type: BLOOD SPECIMENOrdering Facility: [facility] Address: [address] [place] [address] Performed By: #### 5 7021-8 ####[facility] LABCLIA [id number] [place] [address] [place] Nucleated RBC/100 WBC (Bld) [Ratio] 0.0 /100 WBC Normal [facility] Comment on above: Order Comment: Speci men Type: BLOOD SPECIMENOrdering Facility: [facility] Address: [address] [place] [address] Performed By: #### 5 7021-8 ####[facility] LABCLIA [id number] [address] [address] [place] Platelet mean volume (Bld) [Entitic vol] 8.1 fL Low 9.0-12.7 [facility] Comment on above: Order Comment: Speci men Type: BLOOD SPECIMENOrdering Facility: [facility] Address: [address] [place] [address] Performed By: #### 5 7021-8 ####[facility] LABCLIA [id number] [place] [address] [place] Platelets (Bld) [#/Vol] 302 10*3/uL Normal 150-400 [facility] Comment on above: Order Comment: Speci men Type: BLOOD SPECIMENOrdering Facility: [facility] Address: [address] [place] [address] Performed By: #### 5 7021-8 ####[facility] LABCLIA [id number] [address] [address] [place] RBC (Bld) [#/Vol] 4.81 10*6/uL Normal 4.20-6.00 [facility] Comment on above: Order Comment: Speci men Type: BLOOD SPECIMENOrdering Facility: [facility] Address: [address] [place] [address] Performed By: #### 5 7021-8 ####[facility] LABCLIA [id number] [address] [address] [place] WBC (Bld) [#/Vol] 12.11 10*3/uL High 3.70-11.00 [facility] Comment on above: Order Comment: Speci men Type: BLOOD SPECIMENOrdering Facility: [facility] Address: [address] [place] [address] Performed By: #### 5 7021-8 ####[facility] LABCLIA [id number] [address] [address] [place] [facility] CNOVon 01-18-2025 CNOV Office Visit (FAMPWS ) -- YARITZA HENDERSON ([id number]) 1955 M Date Time Provider Department 01/18/25 9:40 AM [facility], we recorded the [...] (EXEP) 06/21/2020 EF=60%, mild menchaca dysf, 1+ [place] COLONOSCOPY 01/09/2019 Dr. Gonzalez, repeat 10 yrs [...] of S (more content not included)... Normal [facility] Cobalamin (Vitamin B12) [Mas s/Vol]on 01-18-2025 Interpretation and review of laboratory results Abnormal [facility] Comprehensive metabolic 2000 panelon 01-18-2025 Albumin [Mass/Vol] 3.8 g/dL Low 3.9 - 4.9 g/dL [facility] ALP [Catalytic activity/Vol] 200 U/L High 38 - 113 U/L [facility] ALT [Catalytic activity/Vol] 6 U/L Low 10 - 54 U/L [facility] Anion gap [Moles/Vol] 17 mmol/L High 8 - 15 mmol/L [facility] AST [Catalytic activity/Vol] 14 U/L 14 - 40 U/L [facility] Bilirubin [Mass/Vol] 1.3 mg/dL 0.2 - 1 .3 mg/dL [facility] Calcium [Mass/Vol] 9.3 mg/dL 8.5 - 10. 2 mg/dL [facility] Chloride [Moles/Vol] 91 mmol/L Low 98 - 10 7 mmol/L [facility] CO2 [Moles/Vol] 20 mmol/L Low 22 - 30 mmol/L [facility] Creatinine [Mass/Vol] 1.35 mg/dL High 0.73 - 1.22 mg/dL [facility] GFR/1.73 sq M.predicted among non-blacks MDRD (S/P/Bld) [Vol rate/Area] 56 mL/min/{1.73_m2} Low - PINF [facility] Comment on above: Estimated Glomerular Filtration Rate (eGFR) is calculated using the 202 CKD-EPI creatinine equation. This equation utilizes serum creatinine, sex, and age as parameters. The creatinine assay has traceable calibration to isotope dilution-mass spectrometry. Refer to KDIGO guidelines for clinical interpretation. In patients with unstable renal function, e.g. those with acute kidney injury, the eGFR may not accurately reflect actual GFR. Glucose [Mass/Vol] 84 mg/dL 74 - 99 mg/dL [facility] Comment on above: The [place] Diab[employer] Association (ADA) provides guidance for [...] Standards of Medical Care in Diabetes 2016, [place] [employer]. Diabetes Care. 2016.39(Suppl 1). Interpretation and review of laboratory results Abnormal [facility] Potassium [Moles/Vol] 4.4 mmol/L 3.7 - 5.1 mmol/L [facility] Protein [Mass/Vol] 7.5 g/dL 6.3 - 8.0 g/dL [facility] Sodium [Moles/Vol] 128 mmol/L Low 136 - 144 mmol/L [facility] Urea nitrogen [Mass/Vol] 19 mg/dL 9 - 24 mg/dL [facility] Albumin [Mass/Vol] 3.8 g/dL Low 3.9-4.[address] [facility] Comment on above: Order Comment: Speci men Type: BLOOD SPECIMENOrdering Facility: [facility] Address: [address] [place] [address] [place] [address] Performed By: #### 2 4323-8, LIPNF, 2132-9, 2284-8 ####[facility] LABCLIA [id number] [address] [address] [id number] [address] [place] ALP [Catalytic activity/Vol] 200 U/L High 38-113 [facility] Comment on above: Order Comment: Speci men Type: BLOOD SPECIMENOrdering Facility: [facility] Address: [address] [place] [address] Performed By: #### 2 4323-8, LIPNF, 2132-01, 2283-12 ####[facility] LABCLIA [id number] [place] [address] [place] ALT [Catalytic activity/Vol] 6 U/L Low 10-54 [facility] Comment on above: Order Comment: Speci men Type: BLOOD SPECIMENOrdering Facility: [facility] Address: [address] [place] [address] Performed By: #### 2 4323-8, LIPNF, 2132-01, 2283-12 ####[facility] LABCLIA [id number] [place] [address] [place] Anion gap [Moles/Vol] 17 mmol/L High 8-15 [facility] Comment on above: Order Comment: Speci men Type: BLOOD SPECIMENOrdering Facility: [facility] Address: [address] [place] [address] Performed By: #### 2 4323-8, LIPNF, 2132-01, 2283-12 ####[facility] LABCLIA [id number] [place] [address] [place] AST [Catalytic activity/Vol] 14 U/L Normal 14-40 [facility] Comment on above: Order Comment: Speci men Type: BLOOD SPECIMENOrdering Facility: [facility] Address: [address] [place] [address] Performed By: #### 2 4323-8, LIPNF, 2132-01, 2283-12 ####[facility] LABCLIA [id number] [place] [id number] [place] Bilirubin [Mass/Vol] 1.3 mg/dL Normal 0.2-1.3 [facility] Comment on above: Order Comment: Speci men Type: BLOOD SPECIMENOrdering Facility: [facility] Address: [address] [place] [address] Performed By: #### 2 4323-8, LIPNF, 2132-01, 2283-12 ####[facility] LABCLIA [id number] [place] [address] [place] Calcium [Mass/Vol] 9.3 mg/dL Normal 8.5-10.[address] [facility] Comment on above: Order Comment: Speci men Type: BLOOD SPECIMENOrdering Facility: [facility] Address: [address] [place] [address] Performed By: #### 2 4323-8, LIPNF, 2132-01, 2283-12 ####[facility] LABCLIA [id number] [place] [address] [place] Chloride [Moles/Vol] 91 mmol/L Low 98-107 [facility] Comment on above: Order Comment: Speci men Type: BLOOD SPECIMENOrdering Facility: [facility] Address: [address] [place] [address] Performed By: #### 2 4323-8, LIPNF, 2132-01, 2283-12 ####[facility] LABCLIA [id number] [place] [address] [place] CO2 [Moles/Vol] 20 mmol/L Low 22-30 [facility] Comment on above: Order Comment: Speci men Type: BLOOD SPECIMENOrdering Facility: [facility] Address: [address] [place] [address] Performed By: #### 2 4323-8, LIPNF, 2132-01, 2283-12 ####[facility] LABCLIA [id number] [address] [address] [place] Creatinine [Mass/Vol] 1.35 mg/dL High 0.73-1.22 [facility] Comment on above: Order Comment: Charlene dewitt Type: BLOOD SPECIMENOrdering Facility: [facility] Address: [address] [place] [address] Performed By: #### 2 4323-8, LIPMARGARETTE, 2132-01, 2283-12 ####[facility] LABCLIA [id number] [address] [address] [place] eGFRcr SerPlBld CKD-EPI 2020 56 mL/min/1.73m??? Low >=60 [facility] Comment on above: Order Comment: Charlene dewitt Type: BLOOD SPECIMENOrdering Facility: [facility] Address: [address] [place] [address] Result Comment: Stormy mated Glomerular Filtration Rate [...] actual GFR. Performed By: #### 2 4323-8, ROBERTO, 2132-01, 2283-12 ####[facility] LABCLIA [id number] [address] [address] [place] Glucose [Mass/Vol] 84 mg/dL Normal 74-[address] [facility] Comment on above: Order Comment: Charlene dewitt Type: BLOOD SPECIMENOrdering Facility: [facility] Address: [address] [place] [address] Result Comment: The [place] [employer] (ADA) provides guidance for cutoff [...] Standards of Medical Care in Diabetes 2016, [place] [employer]. Diabetes Care. 2016.39(Suppl 1). Performed By: #### 2 4323-8, LIPNF, 2132-01, 2283-12 ####[facility] LABCLIA [id number] [facility] [address] [address] [place] Potassium [Moles/Vol] 4.4 mmol/L Normal 3.7-5.1 [facility] Comment on above: Order Comment: Speci men Type: BLOOD SPECIMENOrdering Facility: [facility] Address: [address] [place] [address] Performed By: #### 2 4323-8, LIPNF, 2132-01, 2283-12 ####[facility] LABIA [id number] [address] [address] [place] Protein [Mass/Vol] 7.5 g/dL Normal 6.3-8.[address] [facility] Comment on above: Order Comment: Speci men Type: BLOOD SPECIMENOrdering Facility: [facility] Address: [address] [place] [address] Performed By: #### 2 432-8, LIPNF, 2132-01, 2283-12 ####[facility] LABIA [id number] [address] [address] [place] Sodium [Moles/Vol] 128 mmol/L Low 136-[address] [facility] Comment on above: Order Comment: Speci men Type: BLOOD SPECIMENOrdering Facility: [facility] Address: [address] [place], [place] [address] Performed By: #### 2 4323-8, LIPNF, 2132-01, 2283-12 ####[facility] LABCLIA [id number] [address] [address] [place] Urea nitrogen [Mass/Vol] 19 mg/dL Normal 9-24 [facility] Comment on above: Order Comment: Speci men Type: BLOOD SPECIMENOrdering Facility: [facility] Address: [address] [place] [address] Performed By: #### 2 4323-8, LIPNF, 2132-01, 2283-12 ####[facility] LABCLIA [id number] [address] [address] [place] FOLATE, SERUMon 01-18-2025 Folate [Mass/Vol] 11.2 ng/mL 4.7 - PINF ng/mL [facility] Folate SerPl-mCncon 01-19-20 Folate [Mass/Vol] 11.2 ng/mL Normal >4.7 [facility] Comment on above: Order Comment: Speci men Type: BLOOD SPECIMENOrdering Facility: [facility] Address: [address] [place] [address] Performed By: #### 2 4323-8, LIPNF, 2132-01, 2283-12 ####[facility] LABCLIA [id number] [place] [id number] [place] Folate [Mass/Vol]on 01-19-20 Interpretation and review of laboratory results Normal [facility] LIPID PANEL, NONFASTINGon Cholesterol [Mass/Vol] 99 mg/dL NINF - 200 mg/dL [facility] Comment on above: <200 mg/dL, Desirabl e 200-239 mg/dL, Borderline high >239 mg/dL, High HDL Cholesterol, Nonfasting 47 mg/dL 39 - PINF mg/dL [facility] Comment on above: 40-59 mg/dL, Accepta ble >59 mg/dL, High: Negative risk factor for coronary heart disease <40 mg/dL, Low: Positive risk factor for coronary heart disease Interpretation and review of laboratory results Normal [facility] LDL Cholesterol Calculated, Nonfasting 36 mg/dL NINF - 100 mg/dL [facility] Comment on above: <100 mg/dL, Optimal 100-129 mg/dL, Near optimal/above optimal 130-159 mg/dL, Borderline high 160-189 mg/dL, High >189 mg/dL, Very high Secondary prevention optimal LDL Cholesterol levels are recommended to be <70 mg/dL LDL cholesterol is calculated using the Valdez-NIH equation. LDL/HDL Ratio, Nonfasting 0.77 mg/dL NINF - 2.54 mg/dL [facility] Comment on above: Reference: 1. National Cholesterol Education Program ATP III Guideline At-A-Glance Quick Desk Reference: National Heart, Lung, and Blood [place]. National Institutes of Health. 2001: NIH Publication No. 01-3305. 2. An International Atherosclerosis Society position paper: global recommendations for the management of dyslipidemia: executive summary, Atherosclerosis. 2014: 232(2):410-413. Non HDL Cholesterol, Nonfasting 52 mg/dL NINF - 130 mg/dL [facility] Comment on above: <130 mg/dL, Optimal 130-159 mg/dL, Near optimal/above optimal 160-189 mg/dL, Borderline high 190-219 mg/dL, High >219 mg/dL, Very high Secondary prevention optimal non HDL Cholesterol levels are recommended to be <100 mg/dL Total Chol/HDL Ratio, Nonfasting 2.11 mg/dL NINF - 5.10 mg/dL [facility] Triglycerides, Nonfasting 81 mg/dL NINF - 150 mg/dL [facility] Comment on above: <150 mg/dL, Normal 150-199 mg/dL, Borderline high 200-499 mg/dL, High >499 mg/dL, Very high VLDL Cholesterol, Nonfasting 11 mg/dL NINF - 30 mg/dL [facility] Cholesterol [Mass/Vol] 99 mg/dL Normal <200 Cl [facility] Comment on above: Order Comment: Charlene dewitt Type: BLOOD SPECIMENOrdering Facility: [facility] Address: [address] [place] [address] Result Comment: <200 mg/dL, Desirable 200-239 mg/dL, Borderline high >239 mg/dL, High Performed By: #### 2 4323-8, LIPNF, 2132-9, 2284-8 ####[facility] LABCLIA [id number] [place] [address] [place] HDL CHOLESTEROL, NF 47 mg/dL Normal >39 [facility] Comment on above: Order Comment: Charlene dewitt Type: BLOOD SPECIMENOrdering Facility: [facility] Address: [address] [place] [address] Result Comment: 40-5 9 mg/dL, Acceptable >59 mg/dL, High: Negative risk factor for coronary heart disease <40 mg/dL, Low: Positive risk factor for coronary heart disease Performed By: #### 2 4323-8, LIPNF, 2132-01, 2283-12 ####[facility] LABCLIA [id number] [address] OF [facility] LDL CHOLESTEROL CALCULATED, NF 36 mg/dL Normal <100 [facility] Comment on above: Order Comment: Speci men Type: BLOOD SPECIMENOrdering Facility: [facility] Address: [address] [place] [address] Result Comment: <100 mg/dL, Optimal 100-129 mg/dL, Near optimal/above optimal 130-159 mg/dL, Borderline high 160-189 mg/dL, High >189 mg/dL, Very high Secondary prevention optimal LDL Cholesterol levels are recommended to be <70 mg/dL LDL cholesterol is calculated using the Valdez-NIH equation. Performed By: #### 2 4323-8, LIPNF, 2132-01, 2283-12 ####[facility] LABCLIA [id number] [address] OF [facility] LDL/HDL RATIO, NF 0.77 mg/dL Normal <2.54 [facility] Comment on above: Order Comment: Sadei renate Type: BLOOD SPECIMENOrdering Facility: [facility] Address: [address] [place] [address] Result Comment: Refe rence: 1. National Cholesterol Education Program ATP III Guideline At-A-Glance Quick Desk Reference: National Heart, Lung, and Blood [place]. National Institutes of Health. 2001: NIH Publication No. 01-3305. 2. An International Atherosclerosis Society position paper: global recommendations for the management of dyslipidemia: executive summary, Atherosclerosis. 2014: 232(2):410-413. Performed By: #### 2 4323-8, LIPNF, 2132-01, 2283-12 ####[facility] LABCLIA [id number] [place] [address] [place] NON HDL CHOL, NF 52 mg/dL Normal <130 [facility] Comment on above: Order Comment: Charlene dewitt Type: BLOOD SPECIMENOrdering Facility: [facility] Address: [address] [place] [address] Result Comment: <130 mg/dL, Optimal 130-159 mg/dL, Near optimal/above optimal 160-189 mg/dL, Borderline high 190-219 mg/dL, High >219 mg/dL, Very high Secondary prevention optimal non HDL Cholesterol levels are recommended to be <100 mg/dL Performed By: #### 2 4323-8, LIPNF, 2132-01, 2283-12 ####[facility] LABCLIA [id number] [place] [address] [place] T CHOL/HDL RATIO NF 2.11 mg/dL Normal <5.10 [facility] Comment on above: Order Comment: Charlene dewitt Type: BLOOD SPECIMENOrdering Facility: [facility] Address: [address] [place] [address] Performed By: #### 2 4323-8, LIPNF, 2132-01, 2283-12 ####[facility] LABCLIA [id number] [place] [address] [place] TRIGLYCERIDES, NF 81 mg/dL Normal <150 [facility] Comment on above: Order Comment: Charlene renate Type: BLOOD SPECIMENOrdering Facility: [facility] Address: [address] [place] [address] Result Comment: <150 mg/dL, Normal 150-199 mg/dL, Borderline high 200-499 mg/dL, High >499 mg/dL, Very high Performed By: #### 2 4323-8, LIPNF, 2132-01, 2283-12 ####[facility] LABCLIA [id number] [place] [id number] [place] VLDL CHOLESTEROL, NF 11 mg/dL Normal <30 [facility] Comment on above: Order Comment: Speci men Type: BLOOD SPECIMENOrdering Facility: [facility] Address: [address] [place] [address] Performed By: #### 2 4323-8, LIPNF, 2132-9, 2284-8 ####[facility] LABCLIA [id number] [place] [address] [place] No Panel Informationon 01-18 [facility] PROSTATE-SPECIFIC ANTIGEN DI AGNOSTICon 01-18-2025 Prostate specific Ag [Mass/Vol] 1.03 ng/mL NINF - 2.60 ng/mL [facility] Comment on above: Total PSA test metho dology used is the Electrochemiluminescence Immunoassay by [employer]. Total PSA values by differing methodologies cannot be interchanged. PSA SerPl-mCncon 01-18-2025 Prostate specific Ag [Mass/Vol] 1.03 ng/mL Normal <2.60 [facility] Comment on above: Order Comment: Speci men Type: BLOOD SPECIMENOrdering Facility: [facility] Address: [address] [place] [address] Result Comment: Tota l PSA test methodology used is the Electrochemiluminescence Immunoassay by [employer]. Total PSA values by differing methodologies cannot be interchanged. Performed By: #### 2 857-1 ####[facility] LABCLIA [id number] [place] [address] [place] Prostate specific Ag [Mass/V ol]on 01-18-2025 Interpretation and review of laboratory results Normal [facility] VITAMIN B1 (THIAMINE), WHOLE BLOODon 01-18-2025 Thiamine (Bld) [Moles/Vol] 367.3 nmol/L High 84.3-213.3 [facility] Comment on above: Order Comment: Speci men Type: BLOOD SPECIMENOrdering Facility: [facility] Address: [address] [place] [address] Result Comment: This assay measures the concentration of thiamine diphosphate (TDP), the primary active form of vitamin B1. Approximately 90 percent of vitamin B1 present in whole blood is TDP. Thiamine and thiamine monophosphate, which comprise the remaining 10 percent, are not measured. This test was developed, and its performance characteristics determined by the [facility] Department of Pathology and Laboratory Medicine. It has not been cleared or approved by the FDA. The [facility] Department of Pathology and Laboratory Medicine is regulated under CLIA as qualified to perform high-complexity testing. This test is used for clinical purposes. It should not be regarded as investigational or for research. Performed By: #### B 1WB ####[facility] LABCLIA [id number] [place] [id number] [place] VITAMIN B12on 01-18-2025 Cobalamin (Vitamin B12) [Mass/Vol] pg/mL High 232 - 1245 pg/mL [facility] Vit B12 SerPl-mCncon 025 Cobalamin (Vitamin B12) [Mass/Vol] pg/mL High 232-1245 [facility] Comment on above: Order Comment: Speci men Type: BLOOD SPECIMENOrdering Facility: [facility] Address: [address] [place] [address] Performed By: #### 2 4323-8, LIPNF, 2132-9, 2284-8 ####[facility] LABCLIA [id number] [place] [address] [place] XR RIB/CHST 3V AP RIB/OBL/CH ST Ha 01-18-2025 XR RIB/CHST 3V AP RIB/OBL/CHST R * * *Final Report* * * DATE OF EXAM: Jan 18 2025 11:13AM WOX [id number] - XR RIB/CHST 3V AP RIB/OBL/CHST R / PROCEDURE REASON: multiple diagnoses * * * * Physician Interpretation * * * * HISTORY: Fall, initial encounter Rib pain . Pt. states he fell 4 days ago. Pain anterior lateral lower Rt ribs. TECHNIQUE: XR RIB/CHST 3V AP RIB/OBL/CHST R Laterality: RIGHT Number of different views (projections): 5 COMPARISON: 07/06/2022 RESULT: Fracture deformities of lateral aspects of right ribs 2, 3, 4 and 5 which appear grossly similar to the prior exam. Also fracture deformity of the right ribs 8, 9, and 10 anterolaterally which may be remote. Subtle linear lucency of the right 10th rib posterolaterally compatible with an acute nondisplaced fracture. Cardiac silhouette appears within the upper limits of normal for size. Mild tortuous thoracic aorta. Minimal bibasilar hazy densities suggestive of atelectasis or scarring. No sizable pleural effusion. No visualized pneumothorax. Degenerative changes of the included spine with mild S-shaped thoracolumbar scoliosis. Included upper abdomen demonstrates gas distended loops of bowel. IMPRESSION: Acute nondisplaced fracture of the right 10th rib. Remote appearing fracture deformities of multiple right ribs. Minimal bibasilar atelectasis or scarring. No visualized pneumothorax. Nonspecific partially imaged bowel gas pattern with gas distended loops of bowel overlying the upper abdomen. Patient Sitter: PSCB Transcribe Date/Time: Jan 25 2025 6:58A Dictated by : YARI RAVI MD This examination was interpreted and the report reviewed and electronically signed by: YARI RAVI MD on Jan 25 2025 7:03AM EST [id number] Normal [facility] CNCOon 01-09-2025 CNCO Letter Text Normal [facility] CNOVon 07-10-2024 CNOV Office Visit (FAMPWS ) -- SANTIAGOYARITZA L ([id number]) 1955 M Date Time Provider Department 07/10/24 11:40 AM ERUM CASTANEDA FAMPWS During your visit today, we recorded the [...] (EXEP) 06/21/2020 EF=60%, mild menchaca dysf, 1+ [place] COLONOSCOPY 01/09/2019 Dr. Gonzalez, repeat 10 yrs [...] appearing, lalo (more content not included)... [facility] SANTIAGOYARITZA ([id number]) 1955 M Date Time Provider Department 07/06/24 ERUM CASTANEDA During your visit today, we recorded the following information about you: Erum Castaneda PA-C 07/06/2024 8:07 AM Signed Let patient know that his alk phos levels are mostly coming from his liver. I would like to get a specific type of US that checks for fibrosis since the regular US was normal last year.. I will send the order to [facility] to see if they take his insurance. Urine was okay Please give me [facility] US with elastrography order to sign. Thank you! KYLAH Bryant Sherill A, LPN 07/06/2024 9:10 AM Addendum Pt notified of Erum's message and instructions. Pt verbalizes understanding. Pt aware [facility] will contact him to schedule US if approved by his insurance. Order has been faxed to [facility]. CARINE Muhammad Amanda, RN 07/06/2024 11:36 AM Signed Katy with [facility] Scheduling called and reports they [...] BEASLEY on: 07/06/2024 01:10 PM Modules accepted: Steve Powell LPN 07/06/2024 1:32 PM Signed Advised pt [...] level [R74.8] Order(s):US ABD RIGHT UPPER QUADRANT [[id number]] Order #: [id number] FUTURE US ELASTOGRAPHY LIVER [[id number]] Order #: [id number] FUTURE Prescriptions as of 07/06/2024 - lisinopril [...] Status:Closed by STEVE OCHOA on 07/06/24 Normal [facility] ALKALINE PHOSPHATASE ISOENZY MES (P)on 07-04-2024 ALK PHOS BONE % 12.9 % Normal 10.7-68.3 [facility] Comment on above: Order Comment: Speci men Type: BLOOD SPECIMENOrdering Facility: [facility] Address: [address] [place] [address] Performed By: #### A LKISOP ####[facility] LABIA [id number] [place] [address] [place] ALK PHOS LIVER % 87.1 % High 26.0-86.2 [facility] Comment on above: Order Comment: Speci men Type: BLOOD SPECIMENOrdering Facility: [facility] Address: [address] [place] [address] Performed By: #### A LKISOP ####[facility] LABIA [id number] [place] [address] [place] BONE FRACTION 27.2 U/L Normal 12.9-52.6 [facility] Comment on above: Order Comment: Speci men Type: BLOOD SPECIMENOrdering Facility: [facility] Address: [address] [place] [address] Performed By: #### A LKISOP ####[facility] LABCLIA [id number] [place] [address] [place] INTESTINE FRACTION 0.0 U/L Normal 0.0-16.[address] [facility] Comment on above: Order Comment: Speci men Type: BLOOD SPECIMENOrdering Facility: [facility] Address: [address] [place] [address] Performed By: #### A LKISOP ####[facility] LABCLIA [id number] [place] [address] [place] LIVER FRACTION 183.8 U/L High 16.0-69.3 [facility] Comment on above: Order Comment: Speci men Type: BLOOD SPECIMENOrdering Facility: [facility] Address: [address] [place] [address] Performed By: #### A LKISOP ####[facility] LABIA [id number] [place] [address] [place] Neutrophils/100 WBC (Bld) 0.0 % Normal 0.0-24.2 [facility] Comment on above: Order Comment: Speci men Type: BLOOD SPECIMENOrdering Facility: [facility] Address: [address] [place] [address] Performed By: #### A LKISOP ####[facility] LABIA [id number] [place] [address] [place] ALP SerPl-cCncon 07-04-2024 ALP [Catalytic activity/Vol] 211 U/L High 38-113 [facility] Comment on above: Order Comment: Speci men Type: BLOOD SPECIMENOrdering Facility: [facility] Address: [address] [place] [address] Performed By: #### 6 768-6, 2324-2 ####[facility] LABIA [id number] [place] [address] [place] CBC W Auto Differential pane l (Bld)on 07-04-2024 Basophils (Bld) [#/Vol] 0.11 10*3/uL High <0.11 [facility] Comment on above: Order Comment: Speci men Type: BLOOD SPECIMENOrdering Facility: [facility] Address: [address] [place] [address] Performed By: #### 5 7021-8 ####[facility] LABCLIA [id number] [place] [address] [place] Basophils/100 WBC (Bld) 1.6 % Normal [facility] Comment on above: Order Comment: Speci men Type: BLOOD SPECIMENOrdering Facility: [facility] Address: [address] [place] [address] Performed By: #### 5 7021-8 ####[facility] LABCLIA [id number] [place] [address] [place] Differential cell count method Nom (Bld) Auto Normal [facility] Comment on above: Order Comment: Speci men Type: BLOOD SPECIMENOrdering Facility: [facility] Address: [address] [place] [address] Performed By: #### 5 7021-8 ####[facility] LABCLIA [id number] [place] [address] [place] Eosinophils (Bld) [#/Vol] 0.24 10*3/uL Normal <0.46 [facility] Comment on above: Order Comment: Speci men Type: BLOOD SPECIMENOrdering Facility: [facility] Address: [address] [place] [address] Performed By: #### 5 7021-8 ####[facility] LABCLIA [id number] [place] [address] [place] Eosinophils/100 WBC (Bld) 3.4 % Normal [facility] Comment on above: Order Comment: Speci men Type: BLOOD SPECIMENOrdering Facility: [facility] Address: [address] [place] [address] Performed By: #### 5 7021-8 ####[facility] LABCLIA [id number] [place] [address] [place] Erythrocyte distribution width (RBC) [Ratio] 12.2 % Normal 11.5-15.0 [facility] Comment on above: Order Comment: Speci men Type: BLOOD SPECIMENOrdering Facility: [facility] Address: [address] [place] [address] Performed By: #### 5 7021-8 ####[facility] LABCLIA [id number] [place] [address] [place] Hematocrit (Bld) [Volume fraction] 48.0 % Normal 39.0-51.0 [facility] Comment on above: Order Comment: Speci men Type: BLOOD SPECIMENOrdering Facility: [facility] Address: [address] [place] [address] Performed By: #### 5 7021-8 ####[facility] LABIA [id number] [place] [address] [place] Hemoglobin (Bld) [Mass/Vol] 16.7 g/dL Normal 13.0-17.0 [facility] Comment on above: Order Comment: Speci men Type: BLOOD SPECIMENOrdering Facility: [facility] Address: [address] [place] [address] Performed By: #### 5 7021-8 ####[facility] LABIA [id number] [place] [address] [place] Immature granulocytes (Bld) [#/Vol] 10*3/uL Normal <0.10 [facility] Comment on above: Order Comment: Speci men Type: BLOOD SPECIMENOrdering Facility: [facility] Address: [address] [place] [address] Performed By: #### 5 7021-8 ####[facility] LABIA [id number] [place] [address] [place] Immature granulocytes/100 WBC (Bld) 0.1 % Normal [facility] Comment on above: Order Comment: Speci men Type: BLOOD SPECIMENOrdering Facility: [facility] Address: [address] [place] [address] Performed By: #### 5 7021-8 ####[facility] LABCLIA [id number] [place] [address] [place] Lymphocytes (Bld) [#/Vol] 1.69 10*3/uL Normal 1.00-4.00 [facility] Comment on above: Order Comment: Speci men Type: BLOOD SPECIMENOrdering Facility: [facility] Address: [address] [place] [address] Performed By: #### 5 7021-8 ####[facility] LABCLIA [id number] [place] [address] [place] Lymphocytes/100 WBC (Bld) 24.0 % Normal [facility] Comment on above: Order Comment: Speci men Type: BLOOD SPECIMENOrdering Facility: [facility] Address: [address] [place] [address] Performed By: #### 5 7021-8 ####[facility] LABCLIA [id number] [place] [address] [place] MCH (RBC) [Entitic mass] 31.9 pg Normal 26.0-34.0 [facility] Comment on above: Order Comment: Speci men Type: BLOOD SPECIMENOrdering Facility: [facility] Address: [address] [place] [address] Performed By: #### 5 7021-8 ####[facility] LABCLIA [id number] [place] [address] [place] MCHC (RBC) [Mass/Vol] 34.8 g/dL Normal 30.5-36.0 [facility] Comment on above: Order Comment: Speci men Type: BLOOD SPECIMENOrdering Facility: [facility] Address: [address] [place] [address] Performed By: #### 5 7021-8 ####[facility] LABCLIA [id number] [place] [address] [place] MCV (RBC) [Entitic vol] 91.8 fL Normal 80.0-100.0 [facility] Comment on above: Order Comment: Speci men Type: BLOOD SPECIMENOrdering Facility: [facility] Address: [address] [place] [address] Performed By: #### 5 7021-8 ####[facility] LABCLIA [id number] [place] [address] [place] Monocytes (Bld) [#/Vol] 0.71 10*3/uL Normal <0.87 [facility] Comment on above: Order Comment: Speci men Type: BLOOD SPECIMENOrdering Facility: [facility] Address: [address] [place] [address] Performed By: #### 5 7021-8 ####[facility] LABIA [id number] [place] [address] [place] Monocytes/100 WBC (Bld) 10.1 % Normal [facility] Comment on above: Order Comment: Speci men Type: BLOOD SPECIMENOrdering Facility: [facility] Address: [address] [place] [address] Performed By: #### 5 7021-8 ####[facility] LABCLIA [id number] [place] [address] [place] Neutrophils (Bld) [#/Vol] 4.29 10*3/uL Normal 1.45-7.50 [facility] Comment on above: Order Comment: Speci men Type: BLOOD SPECIMENOrdering Facility: [facility] Address: [address] [place] [address] Performed By: #### 5 7021-8 ####[facility] LABCLIA [id number] [place] [address] [place] Neutrophils/100 WBC (Bld) 60.8 % Normal [facility] Comment on above: Order Comment: Speci men Type: BLOOD SPECIMENOrdering Facility: [facility] Address: [address] [place] [address] Performed By: #### 5 7021-8 ####[facility] LABCLIA [id number] [place] [address] [place] Nucleated RBC (Bld) [#/Vol] 10*3/uL Normal <0.01 [facility] Comment on above: Order Comment: Speci men Type: BLOOD SPECIMENOrdering Facility: [facility] Address: [address] [place] [address] Performed By: #### 5 7021-8 ####[facility] LABCLIA [id number] [place] [address] [place] Nucleated RBC/100 WBC (Bld) [Ratio] 0.0 /100 WBC Normal [facility] Comment on above: Order Comment: Speci men Type: BLOOD SPECIMENOrdering Facility: [facility] Address: [address] [place] [address] Performed By: #### 5 7021-8 ####[facility] LABCLIA [id number] [place] [address] [place] Platelet mean volume (Bld) [Entitic vol] 7.9 fL Low 9.0-12.7 [facility] Comment on above: Order Comment: Speci men Type: BLOOD SPECIMENOrdering Facility: [facility] Address: [address] [place] [address] Performed By: #### 5 7021-8 ####[facility] LABCLIA [id number] [place] [address] [place] Platelets (Bld) [#/Vol] 315 10*3/uL Normal 150-400 [facility] Comment on above: Order Comment: Speci men Type: BLOOD SPECIMENOrdering Facility: [facility] Address: [address] [place] [address] Performed By: #### 5 7021-8 ####[facility] LABIA [id number] [place] [address] [place] RBC (Bld) [#/Vol] 5.23 10*6/uL Normal 4.20-6.00 [facility] Comment on above: Order Comment: Speci men Type: BLOOD SPECIMENOrdering Facility: [facility] Address: [address] [place] [address] Performed By: #### 5 7021-8 ####[facility] [id number] [place] [address] [place] WBC (Bld) [#/Vol] 7.05 10*3/uL Normal 3.70-11.00 [facility] Comment on above: Order Comment: Speci men Type: BLOOD SPECIMENOrdering Facility: [facility] Address: [address] [place] [address] Performed By: #### 5 7021-8 ####[facility] [id number] [place] [address] [place] GGT SerPl-cCncon 07-04-2024 Gamma glutamyl transferase [Catalytic activity/Vol] 29 U/L Normal 10-70 [facility] Comment on above: Order Comment: Speci men Type: BLOOD SPECIMENOrdering Facility: [facility] Address: [address] [place] [address] Performed By: #### 6 768-6, 2324-2 ####[facility] [id number] [place] [address] [place] Urinalysis complete panel (U )on 07-04-2024 Bacteria LM.HPF (Urine sed) [#/Area] Negative Normal Negative [facility] Comment on above: Order Comment: Speci men Type: URINE SPECIMENOrdering Facility: [facility] Address: [address] [place] [address] Performed By: #### 2 4356-8 ####[facility] LABCLIA [id number] [place] [address] [place] Bilirubin Ql (U) Negative Normal Negative [facility] Comment on above: Order Comment: Speci men Type: URINE SPECIMENOrdering Facility: [facility] Address: [address] [place] [address] Performed By: #### 2 4356-8 ####[facility] LABCLIA [id number] [place] [address] [place] Clarity (Unsp spec) Clear Normal Clear [facility] Comment on above: Order Comment: Speci men Type: URINE SPECIMENOrdering Facility: [facility] Address: [address] [place] [address] Performed By: #### 2 4356-8 ####[facility] LABCLIA [id number] [place] [address] [place] Color (U) Yellow Normal Yellow [facility] Comment on above: Order Comment: Speci men Type: URINE SPECIMENOrdering Facility: [facility] Address: [address] [place] [address] Performed By: #### 2 4356-8 ####[facility] LABCLIA [id number] [place] [address] [place] Epithelial cells LM.HPF (Urine sed) [#/Area] None Seen Normal [facility] Comment on above: Order Comment: Speci men Type: URINE SPECIMENOrdering Facility: [facility] Address: [address] [place] [address] Performed By: #### 2 4356-8 ####[facility] LABCLIA [id number] [place] [address] [place] Glucose Test strip (U) [Mass/Vol] Negative Normal Negative [facility] Comment on above: Order Comment: Speci men Type: URINE SPECIMENOrdering Facility: [facility] Address: [address] [place] [address] Performed By: #### 2 4356-8 ####[facility] LABCLIA [id number] [place] [address] [place] Hemoglobin Ql (U) Negative Normal Negative [facility] Comment on above: Order Comment: Speci men Type: URINE SPECIMENOrdering Facility: [facility] Address: [address] [place] [address] Performed By: #### 2 4356-8 ####[facility] LABCLIA [id number] [place] [address] [place] Hyaline casts (Urine sed) [#/Area] 0 /[LPF] Normal 0 /LPF [facility] Comment on above: Order Comment: Speci men Type: URINE SPECIMENOrdering Facility: [facility] Address: [address] [place] [address] Performed By: #### 2 4356-8 ####[facility] LABIA [id number] [place] [address] [place] Ketones Ql (U) Negative Normal Negative [facility] Comment on above: Order Comment: Speci men Type: URINE SPECIMENOrdering Facility: [facility] Address: [address] [place] [address] Performed By: #### 2 4356-8 ####[facility] LABCLIA [id number] [place] [address] [place] Leukocyte esterase Test strip Ql (U) 2+ Abnormal Negative [facility] Comment on above: Order Comment: Speci men Type: URINE SPECIMENOrdering Facility: [facility] Address: [address] [place] [address] Performed By: #### 2 4356-8 ####[facility] LABCLIA [id number] [place] [address] [place] Nitrite Ql (U) Negative Normal Negative [facility] Comment on above: Order Comment: Speci men Type: URINE SPECIMENOrdering Facility: [facility] Address: [address] [place] [address] Performed By: #### 2 4356-8 ####[facility] LABIA [id number] [place] [address] [place] pH (U) 6.5 [pH] Normal <8.5 [facility] Comment on above: Order Comment: Speci men Type: URINE SPECIMENOrdering Facility: [facility] Address: [address] [place] [address] Performed By: #### 2 4356-8 ####[facility] LABIA [id number] [place] [address] [place] Protein (U) [Mass/Vol] Negative Normal Negative Cl [facility] Comment on above: Order Comment: Speci men Type: URINE SPECIMENOrdering Facility: [facility] Address: [address] [place] [address] Performed By: #### 2 4356-8 ####[facility] LABIA [id number] [place] [address] [place] RBC LM.HPF (Urine sed) [#/Area] 0-2 /HPF Normal 0-2 /HPF [facility] Comment on above: Order Comment: Speci men Type: URINE SPECIMENOrdering Facility: [facility] Address: [address] [place] [address] Performed By: #### 2 4356-8 ####[facility] LABIA [id number] [place] [address] [place] Specific gravity (U) [Rel density] 1.007 Normal 1.005-1.030 [facility] Comment on above: Order Comment: Speci men Type: URINE SPECIMENOrdering Facility: [facility] Address: [address] [place] [address] Performed By: #### 2 4356-8 ####[facility] LABCLIA [id number] [place] [address] [place] Urobilinogen Ql (U) 1.0 EU/dL Normal 0.2-1.0 EU/dL [facility] Comment on above: Order Comment: Speci men Type: URINE SPECIMENOrdering Facility: [facility] Address: [address] [place] [address] Performed By: #### 2 4356-8 ####[facility] LABCLIA [id number] [place] [address] [place] WBC LM.HPF (Urine sed) [#/Area] 11-20 /HPF Abnormal 0-5 /HPF [facility] Comment on above: Order Comment: Speci men Type: URINE SPECIMENOrdering Facility: [facility] Address: [address] [place] [address] Performed By: #### 2 4356-8 ####[facility] LABIA [id number] [place] [address] [place] CNOVon 06-26-2024 [facility] YARITZA HENDERSON ([id number]) 1955 M Date Time Provider Department 06/26/24 11:40 AM ERUM CASTANEDA FAMPWS During your visit today, we recorded the following information about you: Temperature Pulse Respiration Blood pressure 97.7 degrees 58/minute 16/minute 122/70 Weight 76.2 kg Erum Castaneda PA-C 06/26/2024 12:28 PM Signed Chief Complaint Patient presents with: 6 Month Exam HPI Yaritza Winsome Santiago is a 68 year old male who [...] (EXEP) 06/21/2020 EF=60%, mild [place]chaca dysf, 1+ [place] COLONOSCOPY 01/09/2019 Dr. Gonzalez, repeat 10 yrs [...] breath CARDIOVASCULAR: (more content not included)... Normal [facility] CBC W Auto Differential pane l (Bld)on 06-21-2024 Basophils (Bld) [#/Vol] 0.09 10*3/uL Normal <0.11 [facility] Comment on above: Order Comment: Speci men Type: BLOOD SPECIMENOrdering Facility: [facility] Address: [address] [place] [address] Performed By: #### 5 7021-8 ####[facility] LABCLIA [id number] [place] [address] [place] Basophils/100 WBC (Bld) 0.9 % Normal [facility] Comment on above: Order Comment: Speci men Type: BLOOD SPECIMENOrdering Facility: [facility] Address: [address] [place] [address] Performed By: #### 5 7021-8 ####[facility] LABCLIA [id number] [place] [address] [place] Differential cell count method Nom (Bld) Auto Normal [facility] Comment on above: Order Comment: Speci men Type: BLOOD SPECIMENOrdering Facility: [facility] Address: [address] [place] [address] Performed By: #### 5 7021-8 ####[facility] LABCLIA [id number] [place] [address] [place] Eosinophils (Bld) [#/Vol] 0.21 10*3/uL Normal <0.46 [facility] Comment on above: Order Comment: Speci men Type: BLOOD SPECIMENOrdering Facility: [facility] Address: [address] [place] [address] Performed By: #### 5 7021-8 ####[facility] LABCLIA [id number] [place] [address] [place] Eosinophils/100 WBC (Bld) 2.1 % Normal [facility] Comment on above: Order Comment: Speci men Type: BLOOD SPECIMENOrdering Facility: [facility] Address: [address] [place] [address] Performed By: #### 5 7021-8 ####[facility] LABCLIA [id number] [place] [address] [place] Erythrocyte distribution width (RBC) [Ratio] 12.9 % Normal 11.5-15.0 [facility] Comment on above: Order Comment: Speci men Type: BLOOD SPECIMENOrdering Facility: [facility] Address: [address] [place] [address] Performed By: #### 5 7021-8 ####[facility] LABIA [id number] [place] [address] [place] Hematocrit (Bld) [Volume fraction] 50.7 % Normal 39.0-51.0 [facility] Comment on above: Order Comment: Speci men Type: BLOOD SPECIMENOrdering Facility: [facility] Address: [address] [place] [address] Performed By: #### 5 7021-8 ####[facility] LABIA [id number] [place] [address] [place] Hemoglobin (Bld) [Mass/Vol] 17.3 g/dL High 13.0-17.0 [facility] Comment on above: Order Comment: Speci men Type: BLOOD SPECIMENOrdering Facility: [facility] Address: [address] [place] [address] Performed By: #### 5 7021-8 ####[facility] LABIA [id number] [place] [address] [place] Immature granulocytes (Bld) [#/Vol] 0.03 10*3/uL Normal <0.10 [facility] Comment on above: Order Comment: Speci men Type: BLOOD SPECIMENOrdering Facility: [facility] Address: [address] [place] [address] Performed By: #### 5 7021-8 ####[facility] LABCLIA [id number] [place] [address] [place] Immature granulocytes/100 WBC (Bld) 0.3 % Normal [facility] Comment on above: Order Comment: Speci men Type: BLOOD SPECIMENOrdering Facility: [facility] Address: [address] [place] [address] Performed By: #### 5 7021-8 ####[facility] LABCLIA [id number] [place] [address] [place] Lymphocytes (Bld) [#/Vol] 1.72 10*3/uL Normal 1.00-4.00 [facility] Comment on above: Order Comment: Speci men Type: BLOOD SPECIMENOrdering Facility: [facility] Address: [address] [place] [address] Performed By: #### 5 7021-8 ####[facility] LABCLIA [id number] [place] [address] [place] Lymphocytes/100 WBC (Bld) 17.6 % Normal [facility] Comment on above: Order Comment: Speci men Type: BLOOD SPECIMENOrdering Facility: [facility] Address: [address] [place] [address] Performed By: #### 5 7021-8 ####[facility] LABCLIA [id number] [place] [address] [place] MCH (RBC) [Entitic mass] 32.2 pg Normal 26.0-34.0 [facility] Comment on above: Order Comment: Speci men Type: BLOOD SPECIMENOrdering Facility: [facility] Address: [address] [place] [address] Performed By: #### 5 7021-8 ####[facility] LABCLIA [id number] [place] [address] [place] MCHC (RBC) [Mass/Vol] 34.1 g/dL Normal 30.5-36.0 [facility] Comment on above: Order Comment: Speci men Type: BLOOD SPECIMENOrdering Facility: [facility] Address: [address] [place] [address] Performed By: #### 5 7021-8 ####[facility] LABCLIA [id number] [place] [address] [place] MCV (RBC) [Entitic vol] 94.4 fL Normal 80.0-100.0 [facility] Comment on above: Order Comment: Speci men Type: BLOOD SPECIMENOrdering Facility: [facility] Address: [address] [place] [address] Performed By: #### 5 7021-8 ####[facility] LABCLIA [id number] [place] [address] [place] Monocytes (Bld) [#/Vol] 1.06 10*3/uL High <0.87 [facility] Comment on above: Order Comment: Speci men Type: BLOOD SPECIMENOrdering Facility: [facility] Address: [address] [place] [address] Performed By: #### 5 7021-8 ####[facility] LABCLIA [id number] [place] [address] [place] Monocytes/100 WBC (Bld) 10.8 % Normal [facility] Comment on above: Order Comment: Speci men Type: BLOOD SPECIMENOrdering Facility: [facility] Address: [address] [place] [address] Performed By: #### 5 7021-8 ####[facility] LABCLIA [id number] [place] [address] [place] Neutrophils (Bld) [#/Vol] 6.67 10*3/uL Normal 1.45-7.50 [facility] Comment on above: Order Comment: Speci men Type: BLOOD SPECIMENOrdering Facility: [facility] Address: [address] [place] [address] Performed By: #### 5 7021-8 ####[facility] LABCLIA [id number] [place] [address] [place] Neutrophils/100 WBC (Bld) 68.3 % Normal [facility] Comment on above: Order Comment: Speci men Type: BLOOD SPECIMENOrdering Facility: [facility] Address: [address] [place] [address] Performed By: #### 5 7021-8 ####[facility] LABCLIA [id number] [place] [address] [place] Nucleated RBC (Bld) [#/Vol] 10*3/uL Normal <0.01 [facility] Comment on above: Order Comment: Speci men Type: BLOOD SPECIMENOrdering Facility: [facility] Address: [address] [place] [address] Performed By: #### 5 7021-8 ####[facility] LABCLIA [id number] [place] [address] [place] Nucleated RBC/100 WBC (Bld) [Ratio] 0.0 /100 WBC Normal [facility] Comment on above: Order Comment: Speci men Type: BLOOD SPECIMENOrdering Facility: [facility] Address: [address] [place] [address] Performed By: #### 5 7021-8 ####[facility] LABIA [id number] [place] [address] [place] Platelet mean volume (Bld) [Entitic vol] 8.0 fL Low 9.0-12.7 [facility] Comment on above: Order Comment: Speci men Type: BLOOD SPECIMENOrdering Facility: [facility] Address: [address] [place] [address] Performed By: #### 5 7021-8 ####[facility] LABCLIA [id number] [place] [address] [place] Platelets (Bld) [#/Vol] 311 10*3/uL Normal 150-400 [facility] Comment on above: Order Comment: Speci men Type: BLOOD SPECIMENOrdering Facility: [facility] Address: [address] [place] [address] Performed By: #### 5 7021-8 ####[facility] LABCLIA [id number] [place] [address] [place] RBC (Bld) [#/Vol] 5.37 10*6/uL Normal 4.20-6.00 [facility] Comment on above: Order Comment: Speci men Type: BLOOD SPECIMENOrdering Facility: [facility] Address: [address] [place] [address] Performed By: #### 5 7021-8 ####[facility] LABCLIA [id number] [place] [address] [place] WBC (Bld) [#/Vol] 9.78 10*3/uL Normal 3.70-11.00 [facility] Comment on above: Order Comment: Speci men Type: BLOOD SPECIMENOrdering Facility: [facility] Address: [address] [place] [address] Performed By: #### 5 7021-8 ####[facility] LABCLIA [id number] [place] [address] [place] Comprehensive metabolic 2000 panelon 06-21-2024 Albumin [Mass/Vol] 3.6 g/dL Low 3.9-4.[address] [facility] Comment on above: Order Comment: Speci men Type: BLOOD SPECIMENOrdering Facility: [facility] Address: [address] [place] [address] Performed By: #### 2 132-9, 74031-1, 78253-1, 2284-8 ####[facility] LABCLIA [id number] [place] [address] [place] ALP [Catalytic activity/Vol] 257 U/L High 38-113 [facility] Comment on above: Order Comment: Speci men Type: BLOOD SPECIMENOrdering Facility: [facility] Address: [address] [place] [address] Performed By: #### 2 132-9, 66110-3, 82468-6, 2284-8 ####[facility] LABCLIA [id number] [place] [address] [place] ALT [Catalytic activity/Vol] 21 U/L Normal 10-54 [facility] Comment on above: Order Comment: Speci men Type: BLOOD SPECIMENOrdering Facility: [facility] Address: [address] [place] [address] Performed By: #### 2 132-9, 63508-9, 87701-7, 2284-8 ####[facility] LABCLIA [id number] [place] [address] [place] Anion gap [Moles/Vol] 11 mmol/L Normal 8-15 [facility] Comment on above: Order Comment: Speci men Type: BLOOD SPECIMENOrdering Facility: [facility] Address: [address] [place] [address] Performed By: #### 2 132-9, 06840-6, 21323-1, 228-8 ####[facility] LABCLIA [id number] [place] [address] [place] AST [Catalytic activity/Vol] 35 U/L Normal 14-40 [facility] Comment on above: Order Comment: Speci men Type: BLOOD SPECIMENOrdering Facility: [facility] Address: [address] [place] [address] Performed By: #### 2 132-9, 91293-5, 68985-8, 2284-8 ####[facility] LABCLIA [id number] [place] [address] [place] Bilirubin [Mass/Vol] 0.5 mg/dL Normal 0.2-1.3 [facility] Comment on above: Order Comment: Speci men Type: BLOOD SPECIMENOrdering Facility: [facility] Address: [address] [place] [address] Performed By: #### 2 132-9, 81200-0, 45788-1, 2284-8 ####[facility] LABCLIA [id number] [place] [address] [place] Calcium [Mass/Vol] 9.0 mg/dL Normal 8.5-10.[address] [facility] Comment on above: Order Comment: Speci men Type: BLOOD SPECIMENOrdering Facility: [facility] Address: [address] [place] [address] Performed By: #### 2 132-9, 21247-6, 28836-3, 2284-8 ####[facility] LABCLIA [id number] [place] [address] [place] Chloride [Moles/Vol] 94 mmol/L Low 98-107 [facility] Comment on above: Order Comment: Speci men Type: BLOOD SPECIMENOrdering Facility: [facility] Address: [address] [place] [address] Performed By: #### 2 132-9, 17804-4, 88062-8, 2284-8 ####[facility] LABCLIA [id number] [place] [address] [place] CO2 [Moles/Vol] 26 mmol/L Normal 22-30 [facility] Comment on above: Order Comment: Speci men Type: BLOOD SPECIMENOrdering Facility: [facility] Address: [address] [place] [address] Performed By: #### 2 132-9, 69002-8, 42264-5, 2284-8 ####[facility] LABCLIA [id number] [place] [address] [place] Creatinine [Mass/Vol] 1.17 mg/dL Normal 0.73-1.22 [facility] Comment on above: Order Comment: Speci men Type: BLOOD SPECIMENOrdering Facility: [facility] Address: [address] [place] [address] Performed By: #### 2 132-9, 98836-1, 20280-8, 2284-8 ####[facility] LABCLIA [id number] [place] [address] [place] Creatinine and Glomerular filtration rate.predicted panel (S/P/Bld) 67 mL/min/1.73m??? Normal >=60 [facility] Comment on above: Order Comment: Charlene dewitt Type: BLOOD SPECIMENOrdering Facility: [facility] Address: [address] [place] [address] Result Comment: Stormy mated Glomerular Filtration Rate [...] reflect actual GFR. Performed By: #### 2 132-9, 18157-3, 87587-4, 2283-8 ####[facility] LABCLIA [id number] [place] [address] [place] Glucose [Mass/Vol] 103 mg/dL High 74-[address] [facility] Comment on above: Order Comment: Charlene dewitt Type: BLOOD SPECIMENOrdering Facility: [facility] Address: [address] [place] [address] Result Comment: The [place] Diabetes Association (ADA) provides guidance for cutoff [...] Standards of Medical Care in Diabetes 2016, [place] [employer] Association. Diabetes Care. 2016.39(Suppl 1). Performed By: #### 2 132-9, 29779-9, 19372-9, 2283-8 ####[facility] LABCLIA [id number] [place] [id number] [place] Potassium [Moles/Vol] 4.5 mmol/L Normal 3.7-5.1 [facility] Comment on above: Order Comment: Speci men Type: BLOOD SPECIMENOrdering Facility: [facility] Address: [address] [place] [address] Performed By: #### 2 132-9, 03714-1, 50372-4, 2284-8 ####[facility] LABCLIA [id number] [place] [address] [place] Protein [Mass/Vol] 7.5 g/dL Normal 6.3-8.[address] [facility] Comment on above: Order Comment: Speci men Type: BLOOD SPECIMENOrdering Facility: [facility] Address: [address] [place] [address] Performed By: #### 2 132-9, 45067-6, 80754-7, 228-8 ####[facility] LABCLIA [id number] [place] [address] [place] Sodium [Moles/Vol] 131 mmol/L Low 136-[address] [facility] Comment on above: Order Comment: Speci men Type: BLOOD SPECIMENOrdering Facility: [facility] Address: [address] [place] [address] Performed By: #### 2 132-9, 65942-6, 28408-0, 228-8 ####[facility] LABCLIA [id number] [place] [address] [place] Urea nitrogen [Mass/Vol] 6 mg/dL Low 9-24 [facility] Comment on above: Order Comment: Speci men Type: BLOOD SPECIMENOrdering Facility: [facility] Address: [address] [place] [address] Performed By: #### 2 132-9, 70857-3, 90179-4, 2284-8 ####[facility] LABCLIA [id number] [place] [address] [place] Folate SerPl-mCncon 06-21-19 25 Folate [Mass/Vol] 18.3 ng/mL Normal >4.7 [facility] Comment on above: Order Comment: Speci men Type: BLOOD SPECIMENOrdering Facility: [facility] Address: [address] [place] [address] Performed By: #### 2 132-9, 09822-2, 75018-3, 2283-8 ####[facility] LABCLIA [id number] [place] [address] [place] Free PSA [Mass/Vol]on 2024 Free PSA/Total PSA [Mass fraction] 24 % Normal [facility] Comment on above: Order Comment: Speci men Type: BLOOD SPECIMENOrdering Facility: [facility] Address: [address] [place] [address] Result Comment: Tota l and free PSA test methodology used is the Electrochemiluminescence Immunoassay by [employer]. Total or free PSA values by differing [...] >25 9.1% 12.2% 15.8% Performed By: #### 2 132-9, 05169-8, 66625-9, 8 ####[facility] LABCLIA [id number] [place] [id number] [place] Prostate specific Ag [Mass/Vol] 2.27 ng/mL Normal <2.60 [facility] Comment on above: Order Comment: Speci men Type: BLOOD SPECIMENOrdering Facility: [facility] Address: [address] [place] [address] Result Comment: Tota l PSA test methodology used is the Electrochemiluminescence Immunoassay by [employer]. Total PSA values by differing methodologies cannot be interchanged. Performed By: #### 2 132-9, 39976-1, 14488-7, 8 ####[facility] [id number] [address] [address] [place] VITAMIN B1 (THIAMINE), WHOLE BLOODon 06-21-2024 Thiamine (Bld) [Moles/Vol] 340.9 nmol/L High 84.3-213.3 [facility] Comment on above: Order Comment: Speci men Type: BLOOD SPECIMENOrdering Facility: [facility] Address: [address] [place] [address] Result Comment: This assay measures the concentration of thiamine diphosphate (TDP), the primary active form of vitamin B1. Approximately 90 percent of vitamin B1 present in whole blood is TDP. Thiamine and thiamine monophosphate, which comprise the remaining 10 percent, are not measured. This test was developed, and its performance characteristics determined by the [facility] Department of Pathology and Laboratory Medicine. It has not been cleared or approved by the FDA. The [facility] Department of Pathology and Laboratory Medicine is regulated under CLIA as qualified to perform high-complexity testing. This test is used for clinical purposes. It should not be regarded as investigational or for research. Performed By: #### B 1WB ####[facility] [id number] [place] [id number] [place] Vit B12 SerPl-mCncon 025 Cobalamin (Vitamin B12) [Mass/Vol] pg/mL High 232-1245 [facility] Comment on above: Order Comment: Speci men Type: BLOOD SPECIMENOrdering Facility: [facility] Address: [address] [place] [address] Performed By: #### 2 132-9, 29239-8, 55686-1, 8 ####[facility] [id number] [address] [address] [place] CNPNon 02-29-2024 CNPN Telephone (4CQ) -- YARITZA HENDERSON ([id number]) 1955 M Date Time Provider Department 02/29/24 FREDRICK FELICIANO 4CAmol During your visit today, we recorded the following information about you: Vanessa Harding 02/29/2024 10:02 AM Signed Pt called in [...] placed labs for May's visit. Thanks. respirations Steve Ochoa LPN 02/29/2024 11:26 AM Signed Spoke with pt and reviewed Erum's message. Pt verbalizes understanding. Steve Ochoa LPN Allergies As of Date: 02/29/2024 (No Known Allergies) Date Reviewed: 12/27/2023 Reviewed by: Steve Ochoa LPN - Fully Assessed Reason for Visit: Patient Question [6127] Primary Visit Diagnosis:Hypertension, essential [I10] Other Visit Diagnoses:Anemia, unspecified type [D64.9] Folate deficiency [E53.8] Elevated LFTs [R79.89] Hyponatremia [E87.1] Alcohol abuse [F10.10] Fatty liver, alcoholic [K70.0] Order(s):COMPREHENSIVE METABOLIC PANEL [SQCMP] Order #: [id number] FUTURE VITAMIN B1 (THIAMINE), WHOLE BLOOD [SQB1WB] Order #: [id number] FUTURE URINALYSIS, WITH MICROSCOPIC [SQUAWMIC] Order #: [id number] FUTURE VITAMIN B12 [SQB12] Order #: [id number] FUTURE COMPLETE BLOOD COUNT AND DIFFERENTIAL [SQCBCDIF] Order #: [id number] FUTURE FOLATE, SERUM [SQSERFOL] Order #: [id number] FUTURE Prescriptions as of 02/29/2024 - cyanocobalamin [...] Encounter Status:Closed by STEVE OCHOA on 02/29/24 Normal [facility] US Abdomen RUQon 01-13-2024 IMPRESSION: Normal sonographic appearance of the right upper quadrant. Visualization is suboptimal due to overlying bowel gas Patient Sitter: [facility] Transcribe Date/Time: Jan 13 2024 3:38P Dictated by : MARIO IBARRA MD This examination was interpreted and the report reviewed and electronically signed by: MARIO IBARRA MD on Jan 13 2024 4:03PM [facility] DIVISION OF RADIOLOGY * * *Final Report* [...] hydronephrosis. Ascites: None. DIVISION OF RADIOLOGY Provider, [facility] - 01/13/2024 * * *Final Report* * [...] is suboptimal due to overlying bowel gas Patient Sitter: [facility] Transcribe Date/Time: Jan 13 2024 3:38P Dictated by : MARIO IBARRA MD This examination was interpreted and the report reviewed and electronically signed by: MARIO IBARRA MD on Jan 13 2024 4:03PM EST [facility] Radiology Study observation (narrative) [facility] US Abdomen RUQOrdered By: Lucita de la cruz Provider on 01-13-2024 [facility] CBC W Auto Differential pane l (Bld)on 12-27-2023 Basophils (Bld) [#/Vol] 0.08 10*3/uL [facility] Basophils/100 WBC (Bld) 0.9 % [facility] Differential cell count method Nom (Bld) Auto [facility] Eosinophils (Bld) [#/Vol] 0.19 10*3/uL [facility] Eosinophils/100 WBC (Bld) 2.1 % [facility] Erythrocyte distribution width (RBC) [Ratio] 12.5 % 11.5 - 15.0 % [facility] Hematocrit (d) [Volume fraction] 45.8 % 39.0 - 51.0 % [facility] Hemoglobin (Bld) [Mass/Vol] 15.7 g/dL 13.0 - 17.0 g/dL [facility] Immature granulocytes (Bld) [#/Vol] 0.03 10*3/uL [facility] Immature granulocytes/100 WBC (Bld) 0.3 % [facility] Interpretation and review of laboratory results Abnormal [facility] Lymphocytes (Bld) [#/Vol] 1.29 10*3/uL [facility] Lymphocytes/100 WBC (Bld) 14.5 % [facility] MCH (RBC) [Entitic mass] 32.2 pg 26.0 - 34.0 pg [facility] MCHC (RBC) [Mass/Vol] 34.3 g/dL 30.5 - 36.0 g/dL [facility] MCV (RBC) [Entitic vol] 94.0 fL 80.0 - 100.0 fL [facility] Monocytes (Bld) [#/Vol] 1.44 10*3/uL High NINF [facility] Monocytes/100 WBC (Bld) 16.2 % [facility] Neutrophils (Bld) [#/Vol] 5.86 10*3/uL [facility] Neutrophils/100 WBC (Bld) 66.0 % [facility] Nucleated RBC (Bld) [#/Vol] NINF [facility] Nucleated RBC/100 WBC (Bld) [Ratio] 0.0 % /100 WBC [facility] Platelet mean volume (Bld) [Entitic vol] 8.1 fL Low 9.0 - 12.7 fL [facility] Platelets (Bld) [#/Vol] 341 10*3/uL [facility] RBC (Bld) [#/Vol] 4.87 10*6/uL 4.20 - 6.0 0 m/uL [facility] WBC (Bld) [#/Vol] 8.89 10*3/uL [facility] Cobalamin (Vitamin B12) [Mas s/Vol]on 12-27-2023 Interpretation and review of laboratory results Abnormal [facility] Comprehensive metabolic 2000 panelon 12-27-2023 Albumin [Mass/Vol] 4.2 g/dL 3.9 - 4.9 g/dL [facility] ALP [Catalytic activity/Vol] 154 U/L High 38 - 113 U/L [facility] ALT [Catalytic activity/Vol] 10 U/L 10 - 54 U/L [facility] Anion gap [Moles/Vol] 15 mmol/L 8 - 15 mmol/L [facility] AST [Catalytic activity/Vol] 20 U/L 14 - 40 U/L [facility] Bilirubin [Mass/Vol] 1.0 mg/dL 0.2 - 1 .3 mg/dL [facility] Calcium [Mass/Vol] 9.7 mg/dL 8.5 - 10. 2 mg/dL [facility] Chloride [Moles/Vol] 92 mmol/L Low 98 - 10 7 mmol/L [facility] CO2 [Moles/Vol] 22 mmol/L 22 - 30 mmol/L [facility] Creatinine [Mass/Vol] 1.11 mg/dL 0.73 - 1.22 mg/dL [facility] GFR/1.73 sq M.predicted among non-blacks MDRD (S/P/Bld) [Vol rate/Area] 71 mL/min/{1.73_m2} - PINF [facility] Comment on above: Estimated Glomerular Filtration Rate [...] [Mass/Vol] 90 mg/dL 74 - 99 mg/dL [facility] Comment on above: The [place] Diab[employer] s Association (ADA) provides guidance for [...] Standards of Medical Care in Diabetes 2016, [place] [employer]. Diabetes Care. 2016.39(Suppl 1). Interpretation and review of laboratory results Abnormal [facility] Potassium [Moles/Vol] 4.9 mmol/L 3.7 - 5.1 mmol/L [facility] Protein [Mass/Vol] 7.8 g/dL 6.3 - 8.0 g/dL [facility] Sodium [Moles/Vol] 129 mmol/L Low 136 - 144 mmol/L [facility] Urea nitrogen [Mass/Vol] 8 mg/dL Low 9 - 24 mg/dL [facility] FOLATE, SERUMon 12-27-2023 Folate [Mass/Vol] 17.3 ng/mL 4.7 - PINF ng/mL [facility] Folate [Mass/Vol]on 12-27-19 Interpretation and review of laboratory results Normal [facility] LIPID PANEL, NONFASTINGon Cholesterol [Mass/Vol] 129 mg/dL NINF - 200 mg/dL [facility] Comment on above: <200 mg/dL, Desirabl e 200-239 mg/dL, Borderline high >239 mg/dL, High HDL Cholesterol, Nonfasting 82 mg/dL 39 - PINF mg/dL [facility] Comment on above: 40-59 mg/dL, Accepta ble >59 mg/dL, High: Negative risk factor for coronary heart disease <40 mg/dL, Low: Positive risk factor for coronary heart disease Interpretation and review of laboratory results Normal [facility] LDL Cholesterol, Nonfasting 35 mg/dL NINF - 100 mg/dL [facility] Comment on above: <100 mg/dL, Optimal 100-129 mg/dL, Near optimal/above optimal 130-159 mg/dL, Borderline high 160-189 mg/dL, High >189 mg/dL, Very high Secondary prevention optimal LDL Cholesterol levels are recommended to be < 70 mg/dL LDL/HDL Ratio, Nonfasting 0.43 mg/dL NINF - 2.54 mg/dL [facility] Comment on above: Reference: 1. National Cholesterol Education Program ATP III Guideline At-A-Glance Quick Desk Reference: National Heart, Lung, and Blood [place]. National Institutes of Health. 2001: NIH Publication No. 01-3305. 2. An International Atherosclerosis Society position paper: global recommendations for the management of dyslipidemia: executive summary, Atherosclerosis. 2014: 232(2):410-413. Non HDL Cholesterol, Nonfasting 47 mg/dL NINF - 130 mg/dL [facility] Comment on above: <130 mg/dL, Optimal 130-159 mg/dL, Near optimal/above optimal 160-189 mg/dL, Borderline high 190-219 mg/dL, High >219 mg/dL, Very high Secondary prevention optimal non HDL Cholesterol levels are recommended to be <100 mg/dL Total Chol/HDL Ratio, Nonfasting 1.57 mg/dL NINF - 5.10 mg/dL [facility] Triglycerides, Nonfasting 59 mg/dL NINF - 150 mg/dL [facility] Comment on above: <150 mg/dL, Normal 150-199 mg/dL, Borderline high 200-499 mg/dL, High >499 mg/dL, Very high VLDL Cholesterol, Nonfasting 12 mg/dL NINF - 30 mg/dL [facility] No Panel Informationon 12-26 [facility] PROSTATE-SPECIFIC ANTIGEN DI AGNOSTICon 12-27-2023 Prostate specific Ag [Mass/Vol] 4.20 ng/mL High NINF - 2.60 ng/mL [facility] Comment on above: Total PSA test metho [...] Bowden M.D., Ph.D., Amari Forbes M.D., Deborah Hernandez, M.P.H., Dhara Braxton, Sc.D. Effect of Verification Bias on Screening for Prostate Cancer by Measurement of Prostatic Specific Antigen. N Engl J Med 2003,349:335-42. Prostate specific Ag [Mass/V ol]on 12-27-2023 Interpretation and review of laboratory results Abnormal [facility] VITAMIN B12on 12-27-2023 Cobalamin (Vitamin B12) [Mass/Vol] 1961 pg/mL High 232 - 1245 pg/mL [facility] No Panel Informationon 04-07 Radiology Study observation (narrative) [facility] XR Lumbar spine AP and Later perfecto 04-07-2023 IMPRESSION: Mild dextroscoliosis of the upper lumbar spine with multilevel degenerative changes, as described. No acute process seen. Patient Sitter: [facility] Transcribe Date/Time: Apr 07 2023 11:00A Dictated by : TEOFILO CUEVAS MD This examination was interpreted and the report reviewed and electronically signed by: TEOFILO CUEVAS MD on Apr 07 2023 11:24AM EST DIVISION OF RADIOLOGY * * *Final Report* [...] changes, as described. No acute process seen. Patient Sitter: [facility] Transcribe Date/Time: Apr 07 2023 11:00A Dictated by : TEOFILO CUEVAS MD This examination was interpreted and the report reviewed and electronically signed by: TEOFILO CUEVAS MD on Apr 07 2023 11:24AM [facility] XR Thoracic spine AP and Lat eralon 04-07-2023 IMPRESSION: AP, late ral, and swimmer's views of the thoracic spine have been obtained. AP view demonstrates dextroscoliosis of the upper thoracic spine with levoscoliosis of the lower thoracic spine. Associated multilevel marginal spurring. Vertebral heights appear maintained. Prevertebral soft tissues are unremarkable. Patient Sitter: [facility] Transcribe Date/Time: Apr 07 2023 11:00A Dictated by : TEOFILO CUEVAS MD This examination was interpreted and the report reviewed and electronically signed by: TEOFILO CUEVAS MD on Apr 07 2023 11:23AM [facility] DIVISION OF RADIOLOGY * * *Final Report* * * DATE OF EXAM: Apr 07 2023 11:06AM WOX [id number] - XR THORACIC 2V AP/LAT / PROCEDURE REASON: Acute bilateral low back pain without sciatica * * * * Physician Interpretation * * * * History: Acute back pain FINDINGS/ DIVISION OF RADIOLOGY Provider, [facility] - 04/07/2023 * * *Final Report* * [...] appear maintained. Prevertebral soft tissues are unremarkable. Patient Sitter: [facility] Transcribe Date/Time: Apr 07 2023 11:00A Dictated by : TEOFILO CUEVAS MD This examination was interpreted and the report reviewed and electronically signed by: TEOFILO CUEVAS MD on Apr 07 2023 11:23AM EST [facility] XR Thoracic spine AP and Lat eralOrdered By: Ccf Provider on 04-07-2023 [facility] CTA ABD/PEL LOWER EXTREM WO/ W IVCONon 12-31-2022 [facility] CNOVon 10-12-2022 CNOV Office Visit (NEAGCL M) -- YARITZA HENDERSON ([id number]) 1955 M Date Time Provider Department 10/12/22 3:45 PM IVANIA ESTRADA I NEAGCLM During your visit today, we recorded the following information about you: Pulse Blood pressure Weight Height 72/minute 138/76 82.4 kg 1.778 m Ivania Estrada MD 10/12/2022 3:57 PM Signed NEUROSURGERY FOLLOW UP OFFICE NOTE Chair, Clinical Neurosciences Director, Spinal Neurosurgery [facility] Date of visit: October 12, 2022 Patient Name: Mr.Ronald Winsome Henderson Date of : 1955 Current Age: [age] year old Sex: male MRN/E# [id number] Last Office Visit: 08/18/2022 Chief Complaint: Patient presents with: Established Patient Past Medical/Surgical History: Yaritza Henderson is a 66 year old, male with a history of HTN, ETOH abuse, fatty liver. He is a former smoker. HPI: Patient presented to [facility] on 07/06/2022, status post fall down 13 [...] consulted,Dr. Estrada. Nonoperative conservative treatment recommended with STATE COMPTROLLER collar at all times. He was discharged [...] time of fractures. He reported compliance with STATE COMPTROLLER collar and activity restrictions. He was recommended [...] weakness or paresthesia. He reported compliance with STATE COMPTROLLER collar and activity restrictions. His cervical and thoracic x-rays had been stable. He was mildly myelopathic on exam. He was requested to follow up in [address] scans of thoracic and cervical spine to see if STATE COMPTROLLER brace could be removed. The patient presents to the office today to review CT imaging. He denies pain at this time. He denies new weakness or numbness/tingling. He has been compliant with wearing STATE COMPTROLLER brace. He is not taking anything for pain for about 6 weeks. He He is here for evaluation and plan of care. Symptoms: patient denies pain PREVIOUS CONSERVATIVE TREATMENTS: STATE COMPTROLLER collar Zanaflex Tylenol PREVIOUS SURGERY: None PAIN [...] (EXEP) 06/21/2020 EF=60%, mild menchaca dysf, 1+ [place] COLONOSCOPY 01/09/2019 Dr. Gonzalez, repeat 10 yrs [...] Family H (more content not included)... Normal [facility] CT CERVICAL SPINE WO IVCONon 10-12-2022 CT [...] (DLP) for this visit = 296.45 (accession [id number]), 827.07 (accession [id number]) mGy*cm. CT Dose Reduction Employed: Automated exposure [...] thoracic rib is at the T1 level. Cleaning Maid (topogram) images: Multiple right-sided rib fractures are only seen on band cutting machine operator image. Alignment: No evidence of new spondylolisthesis. [...] rib fractures are only seen on the band cutting machine operator image. Please refer to the previous chest imaging. Cervical Anatomic Variant: None. Assume 7 cervical vertebrae with counting from the craniocervical junction. Anatomic Thoracic/Lumbar Variant: Assume first normal thoracic rib is the T1 level. Patient Sitter: [facility] Transcribe Date/Time: Oct 15 2022 8:28A Dictated by : TIKA SELF MD This examination was interpreted and the report reviewed and electronically signed by: TIKA SELF MD on Oct 15 2022 8:55AM EST [id number] Normal [facility] CT THORACIC SPINE WO IVCONon 10-12-2022 CT [...] (DLP) for this visit = 296.45 (accession [id number]), 827.07 (accession [id number]) mGy*cm. CT Dose Reduction Employed: Automated exposure [...] thoracic rib is at the T1 level. Cleaning Maid (topogram) images: Multiple right-sided rib fractures are only seen on band cutting machine operator image. Alignment: No evidence of new spondylolisthesis. [...] rib fractures are only seen on the band cutting machine operator image. Please refer to the previous chest imaging. Cervical Anatomic Variant: None. Assume 7 cervical vertebrae with counting from the craniocervical junction. Anatomic Thoracic/Lumbar Variant: Assume first normal thoracic rib is the T1 level. Patient Sitter: [facility] Transcribe Date/Time: Oct 15 2022 8:28A Dictated by : TIKA SELF MD This examination was interpreted and the report reviewed and electronically signed by: TIKA SELF MD on Oct 15 2022 8:55AM EST [id number] Normal [facility] XR CERVICAL 4V AP/LAT/FLX/EX Ton 10-12-2022 XR [...] DISC AND FACET DISEASE UNCHANGED FROM PREVIOUS Patient Sitter: PSCHayde Transcribe Date/Time: Oct 15 2022 4:28P Dictated by : MORGAN BORGES MD This examination was interpreted and the report reviewed and electronically signed by: MORGAN BORGES MD on Oct 15 2022 4:29PM EST [id number] Normal [facility] YARIT[facility] HEND[facility] ([id number]) 1955 M Date Time Provider Department 09/17/22 FREDRICK FELICIANO During your visit today, we recorded the [...] as needed for pain (for pain.). - triamterene-hydroCHLOROthi azide (MAXZIDE-25) 37.5-25 mg per tablet Take 1 [...] Status:Closed by STEVE OCHOA LPN on 09/17/22 [facility] CNOVon 08-18-2022 CNOV Office Visit (NEAGCL M) -- YARITZA HENDERSON ([id number]) 1955 M Date Time Provider Department 08/18/22 11:30 AM LEAH BLAIR NEAGCLM During your visit today, we recorded the following information about you: Pulse Blood pressure Weight Height 72/minute 143/84 75.3 kg 1.778 m Leah Blair APRN.CNP 08/18/2022 1:13 PM Signed SPINE SURGERY FOLLOW UP NOTE Leah Blair APRN-BIRGIT Date of visit: August 18, 2022 Patient Name: Mr.Ronald Winsome Henderson Date of : 1955 Current Age: [age] year old Sex: male MRN/E# [id number] Last Office Visit: 07/17/2022 Chief Complaint: Patient presents with: Established Patient HPI Mr.Ronald Winsome Henderson has a past medical history of fatty alcoholic liver disease with EtOH abuse and hypertension. Presented to [facility] on 07/06/2022, status post fall down 13 [...] consulted,Dr. Estrada. Nonoperative conservative treatment recommended with STATE COMPTROLLER collar at all times. He was discharged [...] time of fractures. He reported compliance with STATE COMPTROLLER collar and activity restrictions. He denied new [...] balance or gait. He reports compliance with STATE COMPTROLLER collar and activity restrictions. He expresses desire for removal of the STATE COMPTROLLER collar. PAIN EVALUATION No data found in [...] (EXEP) 06/21/2020 EF=60%, mild menchaca dysf, 1+ [place] COLONOSCOPY 01/09/2019 Dr. Gonzalez, repeat 10 yrs [...] Current Outpatient Medications Medication Sig Dispense Refill triamterene-hydroCHLOROthi azide (MAXZIDE-25) 37.5-25 mg per tablet Take 1 [...] lisinopril (ZESTRIL, (more content not included)... Normal [facility] XR CERVICAL 2V AP/LATon 03-2 XR CERVICAL 2V AP/LAT * * *Final [...] SPINE. NO CHANGE COMPARED TO PREVIOUS EXAM. Patient Sitter: PSCB Transcribe Date/Time: Aug 19 2022 5:45P Dictated by : MORGAN BORGES MD This examination was interpreted and the report reviewed and electronically signed by: MORGAN BORGES MD on Aug 19 2022 5:54PM EST [id number] Normal [facility] XR THORACIC 2V AP/LATon - XR THORACIC 2V AP/LAT * * *Final [...] SPINE. NO CHANGE COMPARED TO PREVIOUS EXAM. Patient Sitter: SWATI Transcribe Date/Time: Aug 19 2022 5:45P Dictated by : MORGAN BORGES MD This examination was interpreted and the report reviewed and electronically signed by: MORGAN BORGES MD on Aug 19 2022 5:54PM EST [id number] Normal [facility] CNOVon 07-17-2022 CNOV Office Visit (NEAGCL M) -- YARITZA HENDERSON ([id number]) 1955 Date Time Provider Department 07/17/22 9:30 AM LEAH BLAIR NEAGCLM During your visit today, we recorded the following information about you: Pulse Blood pressure Weight Height 78/minute 90/66 75.3 kg 1.778 m Leah Blair APRN.CNP 07/17/2022 3:42 PM Signed SPINE SURGERY FOLLOW UP NOTE YEMI Waldron Date of visit: July 17, 2022 Patient Name: Mr.Ronald Winsome Henderson Date of : 1955 Current Age: [age] year old Sex: male MRN/E# [id number] Last Office Visit: 07/09/2022 Chief Complaint: Fracture follow up HPI Mr.Ronald Winsome Henderson has a past medical history of fatty alcoholic liver disease with EtOH abuse and hypertension. Presented to [facility] on 07/06/2022, status post fall down 13 [...] consulted,Dr. Estrada. Nonoperative conservative treatment recommended with STATE COMPTROLLER collar at all times. He was discharged on 07/08/2022 with instructions to follow-up with neurosurgery in 2 weeks time, prompting visit today. He presents to the office today, 2 weeks since initial injury, and reports doing well since hospital discharge. He reports compliance with STATE COMPTROLLER collar and activity restrictions. He denies any [...] (EXEP) 06/21/2020 EF=60%, mild menchaca dysf, 1+ [place] COLONOSCOPY 01/09/2019 Dr. Gonzalez, repeat 10 yrs [...] Current Outpatient Medications Medication Sig Dispense Refill triamterene-hydroCHLOROthi azide (MAXZIDE-25) 37.5-25 mg per tablet Take 1 [...] 0 COMPOUNDE (more content not included)... Normal [facility] XR CERVICAL 2V AP/LATon 07-01 XR CERVICAL [...] the thoracic spine. Degenerative changes as described. Patient Sitter: SWATI Transcribe Date/Time: Jul 22 2022 2:50P Dictated by : CLAUDIO DALTON MD This examination was interpreted and the report reviewed and electronically signed by: CLAUDIO DALTON MD on Jul 22 2022 2:56PM EST [id number] Normal [facility] XR THORACIC 2V AP/LATon 07-01 XR THORACIC [...] the thoracic spine. Degenerative changes as described. Patient Sitter: SWATI Transcribe Date/Time: Jul 22 2022 2:50P Dictated by : CLAUDIO DALTON MD This examination was interpreted and the report reviewed and electronically signed by: CLAUDIO DALTON MD on Jul 22 2022 2:56PM EST [id number] Normal [facility] Basic metabolic 2000 panelon 07-16-2022 Anion gap [Moles/Vol] 13 mmol/L 9 - 18 mmol/L [facility] Calcium [Mass/Vol] 9.7 mg/dL 8.5 - 10. 2 mg/dL [facility] Chloride [Moles/Vol] 92 mmol/L Low 97 - 10 5 mmol/L [facility] CO2 [Moles/Vol] 21 mmol/L Low 22 - 30 mmol/L [facility] Creatinine [Mass/Vol] 1.53 mg/dL High 0.73 - 1.22 mg/dL [facility] Estimated Glomerular Filtration Rate 49 mL/min/1.73m Low >=60 mL/min/1.73 m [facility] Glucose [Mass/Vol] 110 mg/dL High 74 - 99 mg/dL [facility] Potassium [Moles/Vol] 4.4 mmol/L 3.7 - 5.1 mmol/L [facility] Sodium [Moles/Vol] 126 mmol/L Low 136 - 144 mmol/L [facility] Urea nitrogen [Mass/Vol] 25 mg/dL High 9 - 24 mg/dL [facility] CNPNon 07-15-2022 CNPN Telephone (NEAGCLM) -- YARITZA HENDERSON ([id number]) 1955 M Date Time Provider Department 07/15/22 IVANIA ESTRADA I NEAGCLM During your visit today, we recorded the following information about you: Denis Monteiro, RN 07/15/2022 1:42 PM Signed The patient [...] Problem [65] Prescriptions as of 07/15/2022 - triamterene-hydroCHLOROthi azide (MAXZIDE-25) 37.5-25 mg per tablet Take 1 [...] Encounter Status:Closed by DENIS MONTEIRO on 07/15/22 [facility] Zak 07-09-2022 CNPN Telephone (NEAGCLM) -- YARITZA HENDERSON ([id number]) 1955 M Date Time Provider Department 07/09/22 IVANIA ESTRADA I NEAGCLM During your visit today, we recorded the following information about you: Demarcus Allen 07/09/2022 2:25 PM Signed ----- Message from Medina Treviño PA-C sent at 07/08/2022 3:37 PM EST ----- Regarding: pt appt [facility]! Yaritza to see SW in 2 wks with xr - ordered Dx: C7, T1, T2 fxs thx Demarcus Allen 07/09/2022 2:26 PM Signed Called patient to schedule x-rays and follow up with Leah or Robin in 2 weeks. Patient's voicemail box is not set up. Was unable to leave a voicemail. Allergies As of Date: 07/09/2022 (No Known Allergies) Date Reviewed: 07/07/2022 Reviewed by: Gena Noble, MAGDALENA - Fully Assessed Reason for Visit: Appointment [...] Status:Closed by DEMARCUS ALLEN on 07/09/22 Normal [facility] Basic metabolic 2000 panelon 07-08-2022 Anion gap [Moles/Vol] 9 mmol/L Normal 9-18 [facility] Comment on above: Order Comment: Speci men Type: BLOOD SPECIMENOrdering Facility: [facility] Address: [address] [place] [phone] Performed By: #### 2 4325-3, 78871-5 ####[facility]ORATORYCLIA [id number] [place] [address] [place] Calcium [Mass/Vol] 8.8 mg/dL Normal 8.5-10.2 [facility] Comment on above: Order Comment: Speci men Type: BLOOD SPECIMENOrdering Facility: [facility] Address: [address] [place] [address] Performed By: #### 2 4325-3, 24204-6 ####[facility]ATORYCLIA [id number] [place] [address] [place] Chloride [Moles/Vol] 86 mmol/L Low 97-105 [facility] Comment on above: Order Comment: Speci men Type: BLOOD SPECIMENOrdering Facility: [facility] Address: [address] [place] [address] Performed By: #### 2 4325-3, 28041-0 ####[facility] LABORATORYCLIA [id number] [address] STATES OF [facility] CO2 [Moles/Vol] 25 mmol/L Normal 22-30 [facility] Comment on above: Order Comment: Speci men Type: BLOOD SPECIMENOrdering Facility: [facility] Address: [address] [place] [address] Performed By: #### 2 4325-3, 78196-9 ####[facility] LABORATORYCLIA [id number] [address] STATES [place] Creatinine [Mass/Vol] 0.99 mg/dL Normal 0.73-1.22 [facility] Comment on above: Order Comment: Speci men Type: BLOOD SPECIMENOrdering Facility: [facility] Address: [address] [place] [address] Performed By: #### 2 4325-3, 83531-2 ####[facility] LABORATORYCLIA [id number] [address] OF [place] ESTIMATED GLOMERULAR FILTRATION RATE 83 mL/min/1.73m??? Normal >=60 [facility] Comment on above: Order Comment: Speci men Type: BLOOD SPECIMENOrdering Facility: [facility] Address: [address] [address] Result Comment: Stormy mated Glomerular Filtration Rate [...] actual GFR. Performed By: #### 2 4325-3, 11354-1 ####[facility]ORATORYCLIA [id number] [place] [address] [place] Glucose [Mass/Vol] 100 mg/dL High 74-99 [facility] Comment on above: Order Comment: Speci men Type: BLOOD SPECIMENOrdering Facility: [facility] Address: [address] [place] [address] Result Comment: The [place] Diabetes Association (ADA) provides guidance for cutoff [...] Standards of Medical Care in Diabetes 2016, [place] [employer]. Diabetes Care. 2016.39(Suppl 1). Performed By: #### 2 4325-3, 68937-5 ####[facility]ORATORYCLIA [id number] [place] [address] [place] Potassium [Moles/Vol] Normal [facility] Comment on above: Order Comment: Speci men Type: BLOOD SPECIMENOrdering Facility: [facility] Address: [address] [place] [address] Result Comment: Unab le to assay due to interference from hemolysis. Suggest reorder as clinically indicated. Performed By: #### 2 4325-3, 43406-4 ####[facility] LABORATORYCLIA [id number] [place] [address] [facility] Sodium [Moles/Vol] 120 mmol/L Low 136-144 [facility] Comment on above: Order Comment: Speci men Type: BLOOD SPECIMENOrdering Facility: [facility] Address: [address] [place] [address] Performed By: #### 2 4325-3, 91609-5 ####[facility] LABORATORYCLIA [id number] [place] [id number] [facility] Urea nitrogen [Mass/Vol] 6 mg/dL Low 9-24 [facility] Comment on above: Order Comment: Speci men Type: BLOOD SPECIMENOrdering Facility: [facility] Address: [address] [place] [address] Performed By: #### 2 4325-3, 70836-2 ####[facility] LABORATORYCLIA [id number] [place] [id number] [facility] CASE MANAGEMon 07-08-2022 CASE MANAGEM HNO ID: [id number] Author: Kodak Hurst PA-C Service: General Surgery Author Type: Physician Asphalt Spreader Operator Type: Care Mgt Progress Note Filed: 07/08/2022 7:51 AM Note Text: Trauma Surgery Progress Note SERVICE DATE: 07/08/2022 Trauma Service Pager: For questions or concerns Mon-Fri 6a-5p please page [phone]. After 5pm and on Weekends and Holidays, please page [phone] if in ICU or [phone] if on RNF. SUBJECTIVE: NAEON. Pain well-controlled. [...] Therapy: Room Air IANDO: Date 07/07/22699 - 07/08/22 0659 07/08/22699 - 07/09/22 0659 Shift 2365-7407 0855-0734 9728-1107 24 Hour Total 6184-4015 0480-0148 4409-2400 24 Hour Total INTAKE PO 220 220 PO 220 220 Shift Total 220 220 OUTPUT Urine 9605 942 8288 Void (ml) 4632 166 5094 Shift Total 4305 134 1891 Weight (kg) 83.5 83.5 83.5 83.5 83.5 [...] EOMI. Sclera not icteric, not injected Neck/Back: STATE COMPTROLLER brace in place and well-fitted. Resp: Lung [...] fall down multiple steps 07/04/2022 (Transfer from [place]) Imaging performed: 07/06/2022 - CT HNCAPTL, CTA [...] thoracic spine injuries NSGY consulted Non-op management STATE COMPTROLLER brace in place Upright x-rays completed Pain control Mobilize PT/OT pending INSIDE SALES REPRESENTATIVE swallow eval pending Mesenteric fat attenutation Serial abdominal exams benign Ok for regular diet H/O ETOH abuse Patient admitted drinks 10-12 beers daily No signs/symptoms of withdrawal at this time CIWA - no meds Torrey (more content not included)... Normal [facility] CBC panel Auto (Bld)on 07-08 Erythrocyte distribution width (RBC) [Ratio] 12.2 % Normal 11.5-15.0 [facility] Comment on above: Order Comment: Speci men Type: BLOOD SPECIMENOrdering Facility: [facility] Address: [address] [place] [address] Performed By: #### 5 8410-2 ####[facility] LABORATORYCLIA [id number] [place] [address] [place] Hematocrit (Bld) [Volume fraction] 35.7 % Low 39.0-51.0 [facility] Comment on above: Order Comment: Speci men Type: BLOOD SPECIMENOrdering Facility: [facility] Address: [address] [place] [address] Performed By: #### 5 8410-2 ####[facility] LABORATORYCLIA [id number] [place] [address] [place] Hemoglobin (Bld) [Mass/Vol] 12.7 g/dL Low 13.0-17.0 [facility] Comment on above: Order Comment: Speci men Type: BLOOD SPECIMENOrdering Facility: [facility] Address: [address] [address] Performed By: #### 5 8410-2 ####[facility] LABORATORYCLIA [id number] [address] MCH (RBC) [Entitic mass] 32.3 pg Normal 26.0-34.0 [facility] Comment on above: Order Comment: Speci men Type: BLOOD SPECIMENOrdering Facility: [facility] Address: [address] [place] [address] Performed By: #### 5 8410-2 ####[facility] LABORATORYCLIA [id number] [address] MCHC (RBC) [Mass/Vol] 35.6 g/dL Normal 30.5-36.0 [facility] Comment on above: Order Comment: Speci men Type: BLOOD SPECIMENOrdering Facility: [facility] Address: [address] [place] [address] Performed By: #### 5 8410-2 ####[facility] LABORATORYCLIA [id number] [address] MCV (RBC) [Entitic vol] 90.8 fL Normal 80.0-100.0 [facility] Comment on above: Order Comment: Speci men Type: BLOOD SPECIMENOrdering Facility: [facility] Address: [address] [place] [address] Performed By: #### 5 8410-2 ####[facility] LABORATORYCLIA [id number] [address] Nucleated RBC (Bld) [#/Vol] 10*3/uL Normal <0.01 [facility] Comment on above: Order Comment: Speci men Type: BLOOD SPECIMENOrdering Facility: [facility] Address: [address] [place] [address] Performed By: #### 5 8410-2 ####[facility]ORATORYCLIA [id number] [address] Platelet mean volume (Bld) [Entitic vol] 8.6 fL Low 9.0-12.7 [facility] Comment on above: Order Comment: Speci men Type: BLOOD SPECIMENOrdering Facility: [facility] Address: [address] [place] [address] Performed By: #### 5 8410-2 ####[facility]ORATORYCLIA [id number] [address] Platelets (Bld) [#/Vol] 242 10*3/uL Normal 150-400 [facility] Comment on above: Order Comment: Speci men Type: BLOOD SPECIMENOrdering Facility: [facility] Address: [address] [place] [address] Performed By: #### 5 8410-2 ####[facility] LABORATORYCLIA [id number] [address] RBC (Bld) [#/Vol] 3.93 10*6/uL Low 4.20-6.00 [facility] Comment on above: Order Comment: Speci men Type: BLOOD SPECIMENOrdering Facility: [facility] Address: [address] [place] [address] Performed By: #### 5 8410-2 ####[facility]ORATORYCLIA [id number] [address] WBC (Bld) [#/Vol] 4.29 10*3/uL Normal 3.70-11.00 [facility] Comment on above: Order Comment: Speci men Type: BLOOD SPECIMENOrdering Facility: [facility] Address: [address] [place] [address] Performed By: #### 5 8410-2 ####[facility] LABORATORYCLIA [id number] [address] CNDSon 07-08-2022 DS HNO ID: [id number] Author: Kodak Hurst PA-C Service: General Surgery Author Type: Physician Asphalt Spreader Operator Type: Discharge Summary Filed: 07/08/2022 1:38 PM Note Text: -- Attestation signed by Gato Toscano MD at 07/08/2022 2:54 PM Attending Note I discussed with resident. The patient was not examined by the attending. I reviewed the resident's note. I agree with the resident's assessment and plan unless otherwise noted. Signature: Gato Toscano MD Date: 07/08/2022. Time: 2:54 PM -- DISCHARGE SUMMARY PATIENT NAME: Yaritza Henderson Code [...] Attending Provider: Gato Toscano MD Consulting: Ivania Esrtada I, MD MY CONDITION AT DISCHARGE: Stable REASON I WAS IN THE HOSPITAL: Treatment of injuries sustained during a reported fall down multiple stairs on 07/04/2022 SUMMARY OF WHAT HAPPENED WHILE I WAS IN THE HOSPITAL: Mr. Yaritza Henderson was admitted to [facility] under the care of the trauma surgery team on 07/06/2022 as a transfer from [facility] for treatment of injuries sustained during a [...] non-operative treatment. He was fitted for a STATE COMPTROLLER brace to be worn at all times [...] determined likely to be chronic and not commercial representative of a mesenteric injury. He tolerated [...] 24 hour period No walking restrictions Other: STATE COMPTROLLER brace to be worn at all times until cleared by your neur (more content not included)... Normal [facility] Hepatic function 2000 panelo n 07-08-2022 Albumin [Mass/Vol] 3.9 g/dL Normal 3.9-4.9 [facility] Comment on above: Order Comment: Speci men Type: BLOOD SPECIMENOrdering Facility: [facility] Address: [address] [place] [address] Performed By: #### 2 4325-3, 61641-7 ####[facility]ORATORYCLIA [id number] [address] ALP [Catalytic activity/Vol] 107 U/L Normal 38-113 [facility] Comment on above: Order Comment: Speci men Type: BLOOD SPECIMENOrdering Facility: [facility] Address: [address] [place] [address] Performed By: #### 2 4325-3, 84837-7 ####[facility]ORATORYCLIA [id number] [address] ALT With P-5'-P [Catalytic activity/Vol] Normal [facility] Comment on above: Order Comment: Speci men Type: BLOOD SPECIMENOrdering Facility: [facility] Address: [address] [place] [address] Result Comment: Unab le to assay due to interference from hemolysis. Suggest reorder as clinically indicated. Performed By: #### 2 4325-3, 97439-3 ####[facility]ATORYCLIA [id number] [address] AST With P-5'-P [Catalytic activity/Vol] Normal [facility] Comment on above: Order Comment: Speci men Type: BLOOD SPECIMENOrdering Facility: [facility] Address: [address] [place] [address] Result Comment: Unab le to assay due to interference from hemolysis. Suggest reorder as clinically indicated. Performed By: #### 2 4325-3, 83984-5 ####[facility]ORATORYCLIA [id number] [address] Bilirubin [Mass/Vol] 0.7 mg/dL Normal 0.2-1.3 [facility] Comment on above: Order Comment: Speci men Type: BLOOD SPECIMENOrdering Facility: [facility] Address: [address] [place] [address] Performed By: #### 2 4325-3, 04110-6 ####[facility]ATORYCLIA [id number] [address] Bilirubin.conjugated [Mass/Vol] Normal [facility] Comment on above: Order Comment: Speci men Type: BLOOD SPECIMENOrdering Facility: [facility] Address: [address] [place] [address] Result Comment: Unab le to assay due to interference from hemolysis. Suggest reorder as clinically indicated. Performed By: #### 2 4325-3, 98108-2 ####[facility]ATORYCLIA [id number] [address] OF [facility] Protein [Mass/Vol] 7.3 g/dL Normal 6.3-8.0 [facility] Comment on above: Order Comment: Speci renate Type: BLOOD SPECIMENOrdering Facility: [facility] Address: [address] [place] [address] Performed By: #### 2 4325-3, 60214-9 ####[facility] LABORATORYCLIA [id number] [address] THERAPY NTon 07-08-2022 THERAPY NT HNO ID: [id number] Author: Sia Tee, PT Service: Physical Therapy Author Type: Physical Therapist Type: Therapy (PT/OT/Speech/Resp) Filed: 07/08/2022 11:56 AM Note Text: Physical Therapy Evaluation SERVICE DATE: 07/08/2022 SERVICE TIME: 1122 to 1145 ROOM: [id number] Recommended Discharge Disposition: Home PT Recommended Discharge Disposition Comments: home safety and other equipment needs Anticipated Discharge Needs: Physical Assist at Home Physical Assist at Home for: Self Care, Cleaning, Laundry, Meals, Shopping, Transportation PT 6 Clicks Score: 20 Precautions/Activity Restrictions: Brace, Fall Risk Precaution/Activity Restriction Comments: STATE COMPTROLLER, can doff for bathing Current Hospital Course: [...] Bed/Bath: 0 Tub/Shower Type: tub/shower Equipment Owned: [employer] Bars- Shower Prior Functional Level: Within Functional [...] Reduced mobility-other Interventions Provided: Evaluation, Therapeutic Activity (92899) $ Evaluation-Moderate (50310) Billed Units: 1 unit Therapeutic Activity (97226) Treatment Minutes: 8 $ Therapeutic Activity (18896) Billed Units: 1 unit Mobility per above grid Educated on spine precautions--discussed with functional mobility tasks Instruct in sharad/doff STATE COMPTROLLER; proper wear and use--pt having difficulty using [...] July 08, 2022 TIME: 11:54 AM Normal [facility] THERAPY NT HNO ID: [id number] Author: Essence Novak OTR/L Service: Occupational Therapy Author Type: Occupational Therapist Type: Therapy (PT/OT/Speech/Resp) Filed: 07/08/2022 10:23 AM Note Text: Occupational Therapy Evaluation SERVICE DATE: 07/08/2022 SERVICE TIME: 0930 to 1000 ROOM: [place] [address] Recommended Discharge Disposition: Home OT Recommended Discharge Disposition Comments: Pt will benefit from Home safety eval, AUTO BENCH MECHANIC to maximize independence with ADLs at home [...] with this at home. Will benefit from AUTO BENCH MECHANIC to assist with brace management after bathing [...] Restrictions: Brace, Fall Risk Precaution/Activity Restriction Comments: STATE COMPTROLLER, can doff for bathing Current Hospital Course: [...] of s (more content not included)... Normal [facility] THERAPY NT HNO ID: [id number] Author: Syeda Hess CCC-INSIDE SALES REPRESENTATIVE Service: Speech/Swallow Author Type: Speech Language Pathologist Type: Therapy (PT/OT/Speech/Resp) Filed: 07/08/2022 9:41 AM Note Text: Speech Therapy Clinical Swallow Evaluation SERVICE DATE: 07/08/2022 SERVICE TIME: 849 to 904 ROOM: [id number] IMPRESSION: Functional oropharyngeal phases of swallowing: without [...] Limits -Patient alert, up in bed on INSIDE SALES REPRESENTATIVE arrival, agreeable to evaluation -Able to feed [...] Skilled Need Interventions Provided: Clinical Swallow Evaluation (18186) $ Clinical Swallow Evaluation (65966) Billed Units: 1 unit Training and education [...] for this therapy evaluation/treatment. SIGNATURE: Syeda Hess CCC-INSIDE SALES REPRESENTATIVE PATIENT NAME: Yaritza Henderson DATE: July 08, 2022 TIME: 9:40 AM Normal [facility] ALLIED HEALTHon 07-07-2022 ALLIED HEALTH HNO ID: [id number] Author: Juni Ott RT(R) Service: Radiology Author Type: Technologist Type: [...] Jorge(R) July 07, 2022 5:38 PM Normal [facility] Basic metabolic 2000 panelon 07-07-2022 Anion gap [Moles/Vol] 8 mmol/L Low 9-18 [facility] Comment on above: Order Comment: Speci men Type: BLOOD SPECIMENOrdering Facility: [facility] Address: [address] [place] [address] Performed By: #### 2 4321-2, 14649-6 ####[facility] LABORATORYCLIA [id number] [place] [address] [place] Calcium [Mass/Vol] 8.4 mg/dL Low 8.5-10.2 [facility] Comment on above: Order Comment: Speci men Type: BLOOD SPECIMENOrdering Facility: [facility] Address: [address] [place] [address] Performed By: #### 2 4321-2, 39678-7 ####[facility] LABORATORYCLIA [id number] [place] [address] [place] Chloride [Moles/Vol] 90 mmol/L Low 97-105 [facility] Comment on above: Order Comment: Speci men Type: BLOOD SPECIMENOrdering Facility: [facility] Address: [address] [place] [address] Performed By: #### 2 4321-2, 81114-8 ####[facility]ITALCLIA [id number] [address] STATES OF [facility] CO2 [Moles/Vol] 26 mmol/L Normal 22-30 [facility] Comment on above: Order Comment: Speci men Type: BLOOD SPECIMENOrdering Facility: [facility] Address: [address] [place] [address] Performed By: #### 2 4320-2, 28554-1 ####[facility]ENTERIA [id number] [address] Creatinine [Mass/Vol] 1.02 mg/dL Normal 0.73-1.22 [facility] Comment on above: Order Comment: Speci men Type: BLOOD SPECIMENOrdering Facility: [facility] Address: [address] [place] [address] Performed By: #### 2 4320-07, 04136-4 ####[facility]ENTERIA [id number] [address] ESTIMATED GLOMERULAR FILTRATION RATE 80 mL/min/1.73m??? Normal >=60 [facility] Comment on above: Order Comment: Speci men Type: BLOOD SPECIMENOrdering Facility: [facility] Address: [address] [place] [address] Result Comment: Stormy mated Glomerular Filtration Rate [...] actual GFR. Performed By: #### 2 4321-2, 88129-5 ####[facility] LABORATORYCLIA [id number] [place] [address] [place] Glucose [Mass/Vol] 101 mg/dL High 74-99 [facility] Comment on above: Order Comment: Charlene dewitt Type: BLOOD SPECIMENOrdering Facility: [facility] Address: [address] [place] [address] Result Comment: The [place] Diabetes Association (ADA) provides guidance for cutoff [...] Standards of Medical Care in Diabetes 2016, [place] [employer]. Diabetes Care. 2016.39(Suppl 1). Performed By: #### 2 4321-2, 97376-3 ####[facility] LABORATORYCLIA [id number] [place] [address] [place] Potassium [Moles/Vol] 3.7 mmol/L Normal 3.7-5.1 [facility] Comment on above: Order Comment: Charlene dewitt Type: BLOOD SPECIMENOrdering Facility: [facility] Address: [address] [place] [address] Performed By: #### 2 432-, 77469-8 ####[facility] LABORATORYCLIA [id number] [place] [address] [place] Sodium [Moles/Vol] 124 mmol/L Low 136-144 [facility] Comment on above: Order Comment: Charlene dewitt Type: BLOOD SPECIMENOrdering Facility: [facility] Address: [address] [place] [address] Performed By: #### 2 432-2, 66238-0 ####[facility] LABORATORYCLIA [id number] [place] [address] [place] Urea nitrogen [Mass/Vol] 9 mg/dL Normal 9-24 [facility] Comment on above: Order Comment: Speci men Type: BLOOD SPECIMENOrdering Facility: [facility] Address: [address] [place] [address] Performed By: #### 2 4321-2, 55649-0 ####[facility] LABORATORYCLIA [id number] [address] [place] CBC panel Auto (Bld)on 07-07 Erythrocyte distribution width (RBC) [Ratio] 12.0 % Normal 11.5-15.0 [facility] Comment on above: Order Comment: Speci men Type: BLOOD SPECIMENOrdering Facility: [facility] Address: [address] [place] [address] Performed By: #### 5 8410-2 ####[facility] LABORATORYCLIA [id number] [address] [place] Hematocrit (Bld) [Volume fraction] 34.3 % Low 39.0-51.0 [facility] Comment on above: Order Comment: Speci men Type: BLOOD SPECIMENOrdering Facility: [facility] Address: [address] [place] [address] Performed By: #### 5 8410-2 ####[facility] LABORATORYCLIA [id number] [address] [place] Hemoglobin (Bld) [Mass/Vol] 12.2 g/dL Low 13.0-17.0 [facility] Comment on above: Order Comment: Speci men Type: BLOOD SPECIMENOrdering Facility: [facility] Address: [address] [place] [address] Performed By: #### 5 8410-2 ####[facility] LABORATORYCLIA [id number] [address] STATES [facility] MCH (RBC) [Entitic mass] 32.2 pg Normal 26.0-34.0 [facility] Comment on above: Order Comment: Speci men Type: BLOOD SPECIMENOrdering Facility: [facility] Address: [address] [place] [address] Performed By: #### 5 8410-2 ####[facility] LABORATORYCLIA [id number] [address] STATES OF [facility] MCHC (RBC) [Mass/Vol] 35.6 g/dL Normal 30.5-36.0 [facility] Comment on above: Order Comment: Speci men Type: BLOOD SPECIMENOrdering Facility: [facility] Address: [address] [place] [address] Performed By: #### 5 8410-2 ####[facility] LABORATORYCLIA [id number] [address] [place] MCV (RBC) [Entitic vol] 90.5 fL Normal 80.0-100.0 [facility] Comment on above: Order Comment: Speci men Type: BLOOD SPECIMENOrdering Facility: [facility] Address: [address] [place] [address] Performed By: #### 5 8410-2 ####[facility] LABORATORYCLIA [id number] [address] [place] Platelet mean volume (Bld) [Entitic vol] 8.1 fL Low 9.0-12.7 [facility] Comment on above: Order Comment: Speci men Type: BLOOD SPECIMENOrdering Facility: [facility] Address: [address] [place] [address] Performed By: #### 5 8410-2 ####[facility] LABORATORYCLIA [id number] [address] [place] Platelets (Bld) [#/Vol] 241 10*3/uL Normal 150-400 [facility] Comment on above: Order Comment: Speci men Type: BLOOD SPECIMENOrdering Facility: [facility] Address: [address] [place] [address] Performed By: #### 5 8410-2 ####[facility] LABORATORYCLIA [id number] [address] [place] RBC (Bld) [#/Vol] 3.79 10*6/uL Low 4.20-6.00 [facility] Comment on above: Order Comment: Speci men Type: BLOOD SPECIMENOrdering Facility: [facility] Address: [address] [place] [address] Performed By: #### 5 8410-2 ####[facility] LABORATORYCLIA [id number] [address] WBC (Bld) [#/Vol] 7.62 10*3/uL Normal 3.70-11.00 [facility] Comment on above: Order Comment: Speci men Type: BLOOD SPECIMENOrdering Facility: [facility] Address: [address] Performed By: #### 5 8410-2 ####[facility] LABORATORYCLIA [id number] [address] CONSULT PROGon 07-07-2022 CONSULT PROG HNO ID: [id number] Author: Jaycob Lynch APRN.[employer] Service: Neurosurgery Author Type: Nurse Practitioner Type: Consult Progress Note Filed: 07/07/2022 5:24 PM Note Text: PROGRESS NOTE NEUROSURGERY SERVICE DATE: 07/07/2022 SERVICE TIME: 2:00 Subjective INTERVAL nahed GARCIA awaiting STATE COMPTROLLER from [facility] Facility-Administered Medications Medication Dose Route Frequency lisinopril [...] -- 85 17 98 % -- -- 07/06/221999 124/75 -- -- 86 22 97 % [...] from the craniocervical junction. Anatomic Thoracic/Lumbar Variant: Patient Sitter: SWATI Transcribe Date/Time: Jul 06 2022 6:57P [...] additional T fractures. -Diet: regular -Activity/bracing: Ordered STATE COMPTROLLER for fractures -Dispo: Patient is neurologically intact and does not currently require immediate surgical intervention. The patient will require STATE COMPTROLLER with uprights and if stable will follow up in two weeks in the outpatient setting with further upright xrays to determine healing of fractures. -Discussed with Dr. Estrada. Medication and Non-Pharmacologic VTE Prophylaxis/Anticoagulants Anticoagulant AND Antiplatelet Medications (From admission, onward) Start Dose Route Frequency Last (more content not included)... [facility] ED NOTEon 07-07-2022 ED NOTE HNO ID: [id number] Author: Nilson Scott RN Service: Emergency Medicine Author Type: Registered Nurse Type: ED Notes Filed: 07/07/2022 1:17 PM Note Text: Meal tray cleared [facility] ED NOTE HNO ID: [id number] Author: Elvi Grove RN Service: Emergency Medicine Author Type: Registered Nurse Type: ED Notes Filed: 07/07/2022 9:21 AM Note Text: Breakfast tray given to pt. [facility] ED NOTE HNO ID: [id number] Author: Lindsey Lynn RN Service: ? Author Type: Registered Nurse Type: ED Notes Filed: 07/07/2022 12:29 AM Note Text: Bed: [facility] Expected date: Expected time: Means of arrival: Comments: Back room [facility] ED NOTE HNO ID: [id number] Author: Nela Aldana RN Service: Emergency Medicine Author Type: Registered Nurse Type: ED Notes Filed: 07/06/2022 11:30 PM Note Text: Report from Caro NICHOLS [facility] Hepatic function 2000 panelo n 07-07-2022 Albumin [Mass/Vol] 3.5 g/dL Low 3.9-4.9 [facility] Comment on above: Order Comment: Speci men Type: BLOOD SPECIMENOrdering Facility: [facility] Address: [address] [place] [address] Performed By: #### 2 4320-2, 44134-0 ####[facility] LABORATORYCLIA [id number] [address] ALP [Catalytic activity/Vol] 112 U/L Normal 38-113 [facility] Comment on above: Order Comment: Speci men Type: BLOOD SPECIMENOrdering Facility: [facility] Address: [address] [place] [address] Performed By: #### 2 4320-2, 11856-3 ####[facility] LABORATORYCLIA [id number] [address] OF [facility] ALT With P-5'-P [Catalytic activity/Vol] 12 U/L Normal 10-54 [facility] Comment on above: Order Comment: Speci men Type: BLOOD SPECIMENOrdering Facility: [facility] Address: [address] [place] [address] Performed By: #### 2 2, 57483-4 ####[facility] LABORATORYCLIA [id number] [address] AST With P-5'-P [Catalytic activity/Vol] 24 U/L Normal 14-40 [facility] Comment on above: Order Comment: Speci men Type: BLOOD SPECIMENOrdering Facility: [facility] Address: [address] [place] [address] Performed By: #### 2 4320-2, 53421-2 ####[facility] LABORATORYCLIA [id number] [address] Bilirubin [Mass/Vol] 1.2 mg/dL Normal 0.2-1.3 [facility] Comment on above: Order Comment: Speci men Type: BLOOD SPECIMENOrdering Facility: [facility] Address: [address] [place] [address] Performed By: #### 2 4320-2, 07563-7 ####[facility] LABORATORYCLIA [id number] [address] OF [facility] Bilirubin.conjugated [Mass/Vol] 0.3 mg/dL High <0.2 [facility] Comment on above: Order Comment: Speci men Type: BLOOD SPECIMENOrdering Facility: [facility] Address: [address] [place] [address] Performed By: #### 2 4321-2, 01165-3 ####[facility]ORATORYCLIA [id number] [address] Protein [Mass/Vol] 6.9 g/dL Normal 6.3-8.0 [facility] Comment on above: Order Comment: Speci men Type: BLOOD SPECIMENOrdering Facility: [facility] Address: [address] [place] [address] Performed By: #### 2 4321-2, 98740-5 ####[facility]ORATORYCLIA [id number] [address] XR CERVICAL 2V AP/LATon 02-0 XR CERVICAL 2V AP/LAT * * *Final [...] body height loss involving known C7 fracture. Patient Sitter: PSCB Transcribe Date/Time: Jul 08 2022 10:45A Dictated by : TIKA SELF MD This examination was interpreted and the report reviewed and electronically signed by: TIKA SELF MD on Jul 08 2022 10:49AM EST [id number] Normal [facility] XR THORACIC 2V AP/LATon XR THORACIC 2V [...] wedge compressions. Additional findings, as detailed above. Patient Sitter: SWATI Transcribe Date/Time: Jul 08 2022 10:49A Dictated by : TIKA SELF MD This examination was interpreted and the report reviewed and electronically signed by: TIKA SELF MD on Jul 08 2022 10:51AM EST [id number] Normal [facility] ALLIED HEALTHon 07-06-2022 ALLIED HEALTH HNO ID: [id number] Author: RT Kaci(R) Service: Radiology Author Type: [...] DATA: Inpatient: see LDA documentation SIGNED BY: Scott WednesdayRT(R) July 06, 2022 6:06 PM Normal [facility] ALLIED HEALTH HNO ID: [id number] Author: Karol Nicole RT(Shyam) Service: Radiology Author Type: Technologist Type: Allied [...] DATE: July 06, 2022 TIME: 1:53 PM Normal [facility] ALLIED HEALTH HNO ID: [id number] Author: [place] Andrews) Service: ? Author Type: Transit Operations Supervisor Type: Allied Health Filed: 07/06/2022 11:08 AM [...] IV DATA: Not applicable SIGNED BY: RT Juliana(Shyam) July 06, 2022 11:08 AM Normal [facility] CBC panel Auto (Bld)on 07-06 Erythrocyte distribution width (RBC) [Ratio] 12.1 % Normal 11.5-15.0 [facility] Comment on above: Order Comment: Speci men Type: BLOOD SPECIMENOrdering Facility: [facility] Address: [address] [place] [address] Performed By: #### 5 8410-2 ####[facility] LABORATORYCLIA [id number] [address] [place] Hematocrit (Bld) [Volume fraction] 36.9 % Low 39.0-51.0 [facility] Comment on above: Order Comment: Speci men Type: BLOOD SPECIMENOrdering Facility: [facility] Address: [address] [place] [address] Performed By: #### 5 8410-2 ####[facility] LABORATORYCLIA [id number] [place] [address] [place] Hemoglobin (Bld) [Mass/Vol] 13.2 g/dL Normal 13.0-17.0 [facility] Comment on above: Order Comment: Speci men Type: BLOOD SPECIMENOrdering Facility: [facility] Address: [address] [place] [place] [address] Performed By: #### 5 8410-2 ####[facility] LABORATORYCLIA [id number] [address] STATES [facility] MCH (RBC) [Entitic mass] 32.1 pg Normal 26.0-34.0 [facility] Comment on above: Order Comment: Speci men Type: BLOOD SPECIMENOrdering Facility: [facility] Address: [address] [place] [address] Performed By: #### 5 8410-2 ####[facility] LABORATORYCLIA [id number] [address] STATES OF [facility] MCHC (RBC) [Mass/Vol] 35.8 g/dL Normal 30.5-36.0 [facility] Comment on above: Order Comment: Speci men Type: BLOOD SPECIMENOrdering Facility: [facility] Address: [address] [place] [address] Performed By: #### 5 8410-2 ####[facility] LABORATORYCLIA [id number] [address] MCV (RBC) [Entitic vol] 89.8 fL Normal 80.0-100.0 [facility] Comment on above: Order Comment: Speci men Type: BLOOD SPECIMENOrdering Facility: [facility] Address: [address] [place] [address] Performed By: #### 5 8410-2 ####[facility] LABORATORYCLIA [id number] [address] Nucleated RBC (Bld) [#/Vol] 10*3/uL Normal <0.01 [facility] Comment on above: Order Comment: Speci men Type: BLOOD SPECIMENOrdering Facility: [facility] Address: [address] [place] [address] Performed By: #### 5 8410-2 ####[facility] LABORATORYCLIA [id number] [address] [place] Platelet mean volume (Bld) [Entitic vol] 7.8 fL Low 9.0-12.7 [facility] Comment on above: Order Comment: Speci men Type: BLOOD SPECIMENOrdering Facility: [facility] Address: [address] [place] [address] Performed By: #### 5 8410-2 ####[facility] LABORATORYCLIA [id number] [place] [address] [place] Platelets (Bld) [#/Vol] 263 10*3/uL Normal 150-400 [facility] Comment on above: Order Comment: Speci men Type: BLOOD SPECIMENOrdering Facility: [facility] Address: [address] [place] [address] Performed By: #### 5 8410-2 ####[facility] LABORATORYCLIA [id number] [address] [place] RBC (Bld) [#/Vol] 4.11 10*6/uL Low 4.20-6.00 [facility] Comment on above: Order Comment: Speci men Type: BLOOD SPECIMENOrdering Facility: [facility] Address: [address] [place] [address] Performed By: #### 5 8410-2 ####[facility] LABORATORYCLIA [id number] [place] [address] [place] WBC (Bld) [#/Vol] 9.19 10*3/uL Normal 3.70-11.00 [facility] Comment on above: Order Comment: Speci men Type: BLOOD SPECIMENOrdering Facility: [facility] Address: [address] [place] [address] Performed By: #### 5 8410-2 ####[facility] LABORATORYCLIA [id number] [address] [place] CK SerPl-cCncon 07-06-2022 CK [Catalytic activity/Vol] 546 U/L High 51-298 [facility] Comment on above: Order Comment: Speci men Type: BLOOD SPECIMENOrdering Facility: [facility] Address: [address] [place] [address] Performed By: #### 2 4323-8, 3040-3, 2157-6 ####[facility] LABORATORYCLIA [id number] [address] CONFIRM BLOOD TYPEon 023 ABO A Normal [facility] Comment on above: Order Comment: Speci men Type: BLOOD SPECIMEN [facility] Address: [address] [place] [address] Performed By: #### C ONABO #### [facility] CLIA [id number] [address] Rh Nom (Bld) Positive Normal [facility] Comment on above: Order Comment: Speci men Type: BLOOD SPECIMEN [facility] Address: [address] [place] [address] Performed By: #### C ONABO #### [facility] CLIA [id number] [address] CONSULTon 07-06-2022 CONSULT HNO ID: [id number] Author: Ivania Estrada I, MD Service: Neurosurgery [...] (EXEP) 06/21/2020 EF=60%, mild menchaca dysf, 1+ [place] COLONOSCOPY 01/09/2019 Dr. Gonzalez, repeat 10 yrs [...] flush bag 20 mL INTRAVENOUS PRN Neri Beltran DO iv contrast (radiology procedure) INTRAVENOUS DIRECTED PRN Kodak Hurst PA-C iv contrast (radiology procedure) INTRAVENOUS DIRECTED PRN Kodak Hurst PA-C iv contrast (radiology procedure) INTRAVENOUS DIRECTED PRN Kodak Hurst PA-C And enteric contrast (radiology procedure) ORAL DIRECTED PRN Kodak Hurst PA-C Current Outpatient Medications Medication Sig Dispense Refill triamterene-hydroCHLOROthi azide (MAXZIDE-25) 37.5-25 mg per tablet 1 tablet [...] GI: Negativ (more content not included)... Normal [facility] CT ABD/PEL W IVCONon 023 CT ABD/PEL W IVCON * * *Final Report* * * DATE OF EXAM: Jul 06 2022 2:15PM [facility] 0530 - CT ABD/PEL W IVCON / PROCEDURE REASON: Abdominal trauma, blunt * * * * Physician Interpretation * * * * EXAMINATION: CT CHEST W IVCON, CT ABD/PEL W IVCON, CT LUMBAR SPINE W RECON DATA -NB, CT T-SPINE W RECON DATA -NB CLINICAL HISTORY: Chest trauma, blunt (accession [id number]), Abdominal trauma, blunt (accession [id number]), Low back pain, trauma (accession [id number]), Back trauma, no prior imaging (Age >= 16y) (accession [id number]) chest pain, abdominal pain, mid back pain, [...] lumbar spine. (more content not included)... Normal [facility] CT CHEST W IVCONon 3 CT CHEST W IVCON * * *Final Report* * * DATE OF EXAM: Jul 06 2022 2:15PM [facility] 0539 - CT CHEST W IVCON / PROCEDURE REASON: Chest trauma, blunt * * * * Physician Interpretation * * * * EXAMINATION: CT CHEST W IVCON, CT ABD/PEL W IVCON, CT LUMBAR SPINE W RECON DATA -NB, CT T-SPINE W RECON DATA -NB CLINICAL HISTORY: Chest trauma, blunt (accession [id number]), Abdominal trauma, blunt (accession [id number]), Low back pain, trauma (accession [id number]), Back trauma, no prior imaging (Age >= 16y) (accession [id number]) chest pain, abdominal pain, mid back pain, [...] spine. Multil (more content not included)... Normal [facility] CT LUMBAR SPINE W RECON DATA -NBon 07-06-2022 CT LUMBAR SPINE W RECON DATA -NB * * *Final Report* * * DATE OF EXAM: Jul 06 2022 2:15PM [facility] 0481 - CT LUMBAR SPINE W RECON DATA -NB / PROCEDURE REASON: Low back pain, trauma * * * * Physician Interpretation * * * * EXAMINATION: CT CHEST W IVCON, CT ABD/PEL W IVCON, CT LUMBAR SPINE W RECON DATA -NB, CT T-SPINE W RECON DATA -NB CLINICAL HISTORY: Chest trauma, blunt (accession [id number]), Abdominal trauma, blunt (accession [id number]), Low back pain, trauma (accession [id number]), Back trauma, no prior imaging (Age >= 16y) (accession [id number]) chest pain, abdominal pain, mid back pain, [...] within bree (more content not included)... Normal [facility] CT T-SPINE W RECON DATA -NBo n 07-06-2022 CT T-SPINE W RECON DATA -NB * * *Final Report* * * DATE OF EXAM: Jul 06 2022 2:15PM [facility] 0485 - CT T-SPINE W RECON DATA -NB / PROCEDURE REASON: Back trauma, no prior imaging (Age >= 16y) * * * * Physician Interpretation * * * * EXAMINATION: CT CHEST W IVCON, CT ABD/PEL W IVCON, CT LUMBAR SPINE W RECON DATA -NB, CT T-SPINE W RECON DATA -NB CLINICAL HISTORY: Chest trauma, blunt (accession [id number]), Abdominal trauma, blunt (accession [id number]), Low back pain, trauma (accession [id number]), Back trauma, no prior imaging (Age >= 16y) (accession [id number]) chest pain, abdominal pain, mid back pain, [...] osseous abnor (more content not included)... Normal [facility] CTA HEAD W IVCONon 3 CTA HEAD W IVCON * * *Final Report* * * DATE OF EXAM: Jul 06 2022 2:05PM [facility] 0022 - CTA HEAD W IVCON / [...] artery is supplied by left V4 segment. reinspector are patent. SCAs are patent. No significant stenosis. No aneurysm. The major dural sinuses and draining veins are patent. Cleaning Maid (topogram) images: No additional findings. IMPRESSION: No significant stenosis or major vessel occlusion. No dissection or aneurysm. Arterial blood flow was measured to detect acute large vessel occlusion by computer aided detection software: Not Performed. Concordance between software and imaging review: Not Applicable. Patient Sitter: PSCHayde Transcribe Date/Time: Jul 06 2022 2:20P Dictated by : NEYMAR MARTIN MD This examination was interpreted and the report reviewed and electronically signed by: NEYMAR MARTIN MD on Jul 06 2022 2:38PM EST [id number] Normal [facility] CTA NECK W IVCONon 3 CTA NECK W IVCON * * *Final Report* * * DATE OF EXAM: Jul 06 2022 2:05PM [facility] 0024 - CTA NECK W IVCON / [...] artery is supplied by left V4 segment. reinspector are patent. SCAs are patent. No significant stenosis. No aneurysm. The major dural sinuses and draining veins are patent. Cleaning Maid (topogram) images: No additional findings. IMPRESSION: No significant stenosis or major vessel occlusion. No dissection or aneurysm. Arterial blood flow was measured to detect acute large vessel occlusion by computer aided detection software: Not Performed. Concordance between software and imaging review: Not Applicable. Patient Sitter: SWATI Transcribe Date/Time: Jul 06 2022 2:20P Dictated by : NEYMAR MARTIN MD This examination was interpreted and the report reviewed and electronically signed by: NEYMAR MARTIN MD on Jul 06 2022 2:38PM EST [id number] Normal [facility] Comprehensive metabolic 2000 panelon 07-06-2022 Albumin [Mass/Vol] 4.0 g/dL Normal 3.9-4.9 [facility] Comment on above: Order Comment: Speci men Type: BLOOD SPECIMENOrdering Facility: [facility] Address: [address] [place] [id number] Performed By: #### 2 4323-8, 3040-3, 2157-6 ####[facility] LABORATORYCLIA [id number] [place] [address] [place] ALP [Catalytic activity/Vol] 127 U/L High 38-113 [facility] Comment on above: Order Comment: Speci men Type: BLOOD SPECIMENOrdering Facility: [facility] Address: [address] [place] [address] Performed By: #### 2 4323-8, 3040-3, 2156-10 ####[facility] LABORATORYCLIA [id number] [address] [place] ALT With P-5'-P [Catalytic activity/Vol] 15 U/L Normal 10-54 [facility] Comment on above: Order Comment: Speci men Type: BLOOD SPECIMENOrdering Facility: [facility] Address: [address] [place] [address] Performed By: #### 2 4323-8, 0-3, 2156-10 ####[facility] LABORATORYCLIA [id number] [address] Anion gap [Moles/Vol] 11 mmol/L Normal 9-18 [facility] Comment on above: Order Comment: Speci men Type: BLOOD SPECIMENOrdering Facility: [facility] Address: [address] [place] [address] Performed By: #### 2 4323-8, 3040-3, 2156-10 ####[facility] LABORATORYCLIA [id number] [address] OF [facility] AST With P-5'-P [Catalytic activity/Vol] 32 U/L Normal 14-40 [facility] Comment on above: Order Comment: Speci men Type: BLOOD SPECIMENOrdering Facility: [facility] Address: [address] [place] [address] Performed By: #### 2 4323-8, 3040-3, 2156-10 ####[facility] LABORATORYCLIA [id number] [place] [address] [place] Bilirubin [Mass/Vol] 1.3 mg/dL Normal 0.2-1.3 [facility] Comment on above: Order Comment: Speci men Type: BLOOD SPECIMENOrdering Facility: [facility] Address: [address] [address] Performed By: #### 2 4323-8, 3, 2156-10 ####[facility] LABORATORYCLIA [id number] [place] [address] [place] Calcium [Mass/Vol] 9.0 mg/dL Normal 8.5-10.2 [facility] Comment on above: Order Comment: Speci men Type: BLOOD SPECIMENOrdering Facility: [facility] Address: [address] [place] [address] Performed By: #### 2 4323-8, 3, 2156-10 ####[facility] LABORATORYCLIA [id number] [place] [address] [place] Chloride [Moles/Vol] 85 mmol/L Low 97-105 [facility] Comment on above: Order Comment: Speci men Type: BLOOD SPECIMENOrdering Facility: [facility] Address: [address] [address] Performed By: #### 2 4323-8, 3, 2156-10 ####[facility] LABORATORYCLIA [id number] [place] [address] [place] CO2 [Moles/Vol] 23 mmol/L Normal 22-30 [facility] Comment on above: Order Comment: Speci men Type: BLOOD SPECIMENOrdering Facility: [facility] Address: [address] [address] Performed By: #### 2 4323-8, 3, 2156-10 ####[facility] LABORATORYCLIA [id number] [place] [address] [place] Creatinine [Mass/Vol] 0.98 mg/dL Normal 0.73-1.22 [facility] Comment on above: Order Comment: Speci men Type: BLOOD SPECIMENOrdering Facility: [facility] Address: [address] [address] Performed By: #### 2 4323-8, 3040-3, 2156-10 ####[facility] [id number] [address] OF [facility] ESTIMATED GLOMERULAR FILTRATION RATE 84 mL/min/1.73m??? Normal >=60 [facility] Comment on above: Order Comment: Charlene dewitt Type: BLOOD SPECIMENOrdering Facility: [facility] Address: [address] [place] [address] Result Comment: Stormy mated Glomerular Filtration Rate [...] actual GFR. Performed By: #### 2 4323-8, 3, 2156-10 ####[facility]ENTERIA [id number] [address] OF [place] Glucose [Mass/Vol] 111 mg/dL High 74-99 [facility] Comment on above: Order Comment: Charlene dewitt Type: BLOOD SPECIMENOrdering Facility: [facility] Address: [address] [place] [address] Result Comment: The [place] Diabetes Association (ADA) provides guidance for cutoff [...] Standards of Medical Care in Diabetes 2016, [place] [employer]. Diabetes Care. 2016.39(Suppl 1). Performed By: #### 2 4323-8, 0-3, 2156-10 ####[facility] LABORATORYCLIA [id number] [address] STATES OF [facility] Potassium [Moles/Vol] 3.5 mmol/L Low 3.7-5.1 [facility] Comment on above: Order Comment: Speci men Type: BLOOD SPECIMENOrdering Facility: [facility] Address: [address] [place] [address] Performed By: #### 2 4323-8, 3040-3, 2156-10 ####[facility] LABORATORYCLIA [id number] [address] [place] Protein [Mass/Vol] 7.2 g/dL Normal 6.3-8.0 [facility] Comment on above: Order Comment: Speci men Type: BLOOD SPECIMENOrdering Facility: [facility] Address: [address] [place] [address] Performed By: #### 2 4323-8, 3, 2156-10 ####[facility] LABORATORYCLIA [id number] [address] Sodium [Moles/Vol] 119 mmol/L Low 136-144 [facility] Comment on above: Order Comment: Speci men Type: BLOOD SPECIMENOrdering Facility: [facility] Address: [address] [place] [address] Performed By: #### 2 4323-8, 3, 2156-10 ####[facility] LABORATORYCLIA [id number] [address] [place] Urea nitrogen [Mass/Vol] 8 mg/dL Low 9-24 [facility] Comment on above: Order Comment: Speci men Type: BLOOD SPECIMENOrdering Facility: [facility] Address: [address] [place] [address] Performed By: #### 2 4323-8, 3, 2156-10 ####[facility] LABORATORYCLIA [id number] [place] [address] [place] ED NOTEon 07-06-2022 ED NOTE HNO ID: [id number] Author: Caro Hinojosa RN Service: Emergency Medicine Author Type: Registered Nurse Type: ED Notes Filed: 07/06/2022 8:41 PM Note Text: Clear liquid diet of jello and gingerale given [facility] ED NOTE HNO ID: [id number] Author: Caro Hinojosa RN Service: Emergency Medicine Author Type: Registered Nurse Type: ED Notes Filed: 07/06/2022 7:02 PM Note Text: Pt returned from MRI Normal [facility] ED NOTE HNO ID: [id number] Author: Shawna Vasquez RN Service: Nursing Author Type: Registered Nurse Type: ED Notes Filed: 07/06/2022 5:27 PM Note Text: MRI questionaire filled out and faxed [facility] ED NOTE HNO ID: [id number] Author: Caro Hinojosa RN Service: Emergency Medicine Author Type: Registered Nurse Type: ED Notes Filed: 07/06/2022 2:11 PM Note Text: Pt to CT [facility] ED NOTE HNO ID: [id number] Author: Caro Hinojosa RN Service: Emergency Medicine Author Type: Registered Nurse Type: ED Notes Filed: 07/06/2022 1:58 PM Note Text: CT notified via ulikeera that pt is ready for test [facility] ED NOTE HNO ID: [id number] Author: Scarlett Castaneda RN Service: Emergency Medicine Author Type: Registered Nurse Type: ED Notes Filed: 07/06/2022 10:40 AM Note Text: Trauma consult at bedside [facility] ED NOTE HNO ID: [id number] Author: Scarlett Castaneda RN Service: Emergency Medicine Author Type: Registered Nurse Type: ED Notes Filed: 07/06/2022 9:38 AM Note Text: Patient's identity verified by patient stating name, Patient's identity verified by patient stating date, Patient's identity verified by hospital ID bracelet. Patient placed on batching operator, patient placed on non-invasive blood pressure monitor, patient placed on continuous pulse oximetry. Alarms set and on, patient tolerating monitoring. [facility] ED NOTE HNO ID: [id number] Author: Ana María Bains RN Service: ? Author Type: Registered Nurse Type: ED Notes Filed: 07/06/2022 9:33 AM Note Text: Bed: 46-ED Expected date: Expected time: Means of arrival: Comments: physicians Normal [facility] ED PROV NOTEon 07-06-2022 ED PROV NOTE HNO ID: [id number] Author: Erick Carrington DO Service: Emergency Medicine [...] 66-year-old male who is a transfer from [place] for trauma consultation. On Wednesday evening, he [...] per trauma. ERICK CARRINGTON 07/08/22 1116 Normal [facility] ED PROV NOTE HNO ID: [id number] Author: Erick S Chandurkar, DO Service: Emergency Medicine Author Type: Physician Type: ED Provider Notes Filed: 07/08/2022 11:10 AM Note Text: ED Provider Note Patient Name: Yaritza Henderson : 1955 SERVICE DATE: 07/06/22 History Patient presents with: Trauma Evaulation: Pt transfer from [place] ED - pt with mech fall on Wednesday night and was on ground from Wednesday to Wednesday, pt unsure of LOC, pt denies any blood thinner use. Pt with pain between my shoulder blades, pt denies any numbness/tingling, pt with C6-C7 fracture. Pt A/OX3 at this time. Yaritza Henderson is a 66 year old male who presents as a trauma transfer from [facility]. Please see their ED note for [...] (EXEP) 06/21/2020 EF=60%, mild menchaca dysf, 1+ [place] COLONOSCOPY 01/09/2019 Dr. Gonzalez, repeat 10 yrs [...] No rhino (more content not included)... Normal [facility] Ethanol SerPl-mCncon 023 Ethanol [Mass/Vol] mg/dL Normal <11 [facility] Comment on above: Order Comment: Speci men Type: BLOOD SPECIMENOrdering Facility: [facility] Address: [address] [place], [place] [phone] Performed By: #### 5 643-2 ####[facility] LABORATORYCLIA [id number] [place] [id number] [place] HISTORY PHYSICALon HISTORY PHYSICAL HNO ID: [id number] Author: Kodak Hurst PA-C Service: General Surgery Author Type: Physician Asphalt Spreader Operator Type: HANDP Filed: 07/06/2022 3:29 PM Note Text: TRAUMA CONSULT NOTE [facility] ARRIVAL DATE: 07/06/2022 ARRIVAL TIME: 09 CATEGORY: Consult - Transfer from [place] ED INJURY DATE: 07/04/2022 INJURY TIME: Unknown Subjective This is a 66 year old White male with PMH significant for HTN, BPH, chronic ETOH abuse and chronic hyponatremia (baseline 120 per review of notes) who presents to [facility] ED this morning as a trauma transfer from [facility]. Patient reportedly fell down approximately 13 steps [...] was taken by a family member to [place] ED this morning where CT imaging of [...] (EXEP) 06/21/2020 EF=60%, mild menchaca dysf, 1+ [place] COLONOSCOPY 01/09/2019 Dr. Gonzalez, repeat 10 yrs [...] into current (more content not included)... Normal [facility] Lipase SerPl-cCncon 07-06-19 23 Lipase [Catalytic activity/Vol] 33 U/L Normal 16-61 [facility] Comment on above: Order Comment: Speci men Type: BLOOD SPECIMENOrdering Facility: [facility] Address: [address] [place] [id number] Performed By: #### 2 4323-8, 3040-3, 2157-6 ####[facility] LABORATORYCLIA [id number] [place] [id number] [place] MRI CERVICAL SPINE WO IVCONo n 07-06-2022 MRI CERVICAL SPINE WO IVCON * * *Final Report* * * DATE OF EXAM: Jul 06 2022 6:43PM BEVERLEY 0297 - MRI CERVICAL SPINE WO IVCON [...] are 5 lumbar-type vertebrae. Anatomic variant: None. Cleaning Maid (topogram) images: There is a tiny T2 [...] vertebrae with (more content not included)... Normal [facility] MRI THORACIC SPINE WO IVCONo n 07-06-2022 MRI THORACIC SPINE WO IVCON * * *Final Report* * * DATE OF EXAM: Jul 06 2022 6:43PM AKM 0325 - MRI THORACIC SPINE WO IVCON [...] are 5 lumbar-type vertebrae. Anatomic variant: None. Cleaning Maid (topogram) images: There is a tiny T2 [...] vertebrae with (more content not included)... Normal [facility] PT panel Coag (PPP)on 2022 INR Coag (PPP) [Relative time] 1.0 {INR} Normal 0.9-1.3 [facility] Comment on above: Order Comment: Charlene dewitt Type: BLOOD SPECIMENOrdering Facility: [facility] Address: [address] [phone] Result Comment: Jenni min K Antagonist (VKA) Therapeutic Range: INR 2 to 3 (Target INR of 2.5) Note: For patients treated with VKA drugs, such as warfarin, the [place] [employer] 2012 Guideline recommends [...] GREGORIO, et al. Chest 2012, 141:7S-47S Aleksandr RA, et al. JAC 2017, 70: 252-289 Performed By: #### 3 4528-0, 92714-1 ####[facility]ITAL[facility]IA [id number] [place] [address] [place] PT Coag (PPP) [Time] 10.8 s Normal 9.7-13.0 [facility] Comment on above: Order Comment: Charlene dewitt Type: BLOOD SPECIMENOrdering Facility: [facility] Address: [place] [address] Performed By: #### 3 4528-0, 70531-1 ####[facility] LABORATORYCLIA [id number] [address] [place] SARS-CoV-2 RNA Resp Ql DILLON+p robeon 07-06-2022 SARS-CoV-2 (COVID-19) RNA DILLON+probe Ql (Resp) COVID 19 RESULT: Not detected The method used is RT-PCR or an equivalent NAAT method. Reference Range(the expected result in uninfected individuals): Not detected Normal [facility] Comment on above: Performed By: #### 9 4500-6 ####[facility] LABORATORYCLIA [id number] [address] TOX SCREEN ROUT URon 023 Amphetamines Confirm (U) [Mass/Vol] Negative Normal Negative [facility] Comment on above: Order Comment: Speci men Type: URINE SPECIMENOrdering Facility: [facility] Address: [address] [place] [address] Result Comment: Cuto ff threshold at 1000 ng/mL. Performed By: #### U TOX2 ####[facility] LABORATORYCLIA [id number] [address] BARBITURATES, URINE Negative Normal Negative [facility] Comment on above: Order Comment: Speci men Type: URINE SPECIMENOrdering Facility: [facility] Address: [address] [place] [address] Result Comment: Cuto ff threshold at 200 ng/mL. Performed By: #### U TOX2 ####[facility] LABORATORYCLIA [id number] [address] [place] BENZODIAZEPINES, UR Negative Normal Negative [facility] Comment on above: Order Comment: Speci men Type: URINE SPECIMENOrdering Facility: [facility] Address: [address] [place] [address] Result Comment: Cuto ff threshold at 200 ng/mL. Performed By: #### U TOX2 ####[facility]ATORYCLIA [id number] [address] [place] CANNABINOIDS,URINE Negative Normal Negative [facility] Comment on above: Order Comment: Speci men Type: URINE SPECIMENOrdering Facility: [facility] Address: [address] [place] [address] Result Comment: Cuto ff threshold at 50 ng/mL. Performed By: #### U TOX2 ####[facility]ATORYCLIA [id number] [address] [place] Cocaine Ql (U) Negative Normal Negative [facility] Comment on above: Order Comment: Speci men Type: URINE SPECIMENOrdering Facility: [facility] Address: [address] [address] Result Comment: Cuto ff threshold at 300 ng/mL. Performed By: #### U TOX2 ####[facility]ATORYCLIA [id number] [address] Ethanol (U) [Mass/Vol] <11 Normal <11 [facility] Comment on above: Order Comment: Speci men Type: URINE SPECIMENOrdering Facility: [facility] Address: [address] [place] [address] Performed By: #### U TOX2 ####[facility]ATORYCLIA [id number] [address] Opiates Screen Ql (U) Positive Abnormal Negative [facility] Comment on above: Order Comment: Speci men Type: URINE SPECIMENOrdering Facility: [facility] Address: [address] [address] Result Comment: Cuto ff threshold at 300 ng/mL. Performed By: #### U TOX2 ####[facility] LABORATORYCLIA [id number] [address] oxyCODONE cutoff Screen (U) [Mass/Vol] Negative Normal Negative [facility] Comment on above: Order Comment: Speci men Type: URINE SPECIMENOrdering Facility: [facility] Address: [address] [address] Result Comment: Cuto ff threshold at 100 ng/mL. Performed By: #### U TOX2 ####[facility]ORYCLIA [id number] [address] Phencyclidine Ql (U) Negative Normal Negative [facility] Comment on above: Order Comment: Speci men Type: URINE SPECIMENOrdering Facility: [facility] Address: [address] [address] Result Comment: Cuto ff threshold at 25 ng/mL. Performed By: #### U TOX2 ####[facility] LABORATORYCLIA [id number] [address] OF [place] TYPE + SCREENon 07-06-2022 ABO A Normal [facility] Comment on above: Order Comment: Speci men Type: BLOOD SPECIMEN [facility] Address: [address] [place] [address] Performed By: #### T SCR #### [facility] CLIA [id number] [address] HISTORICAL AB SCR STATUS Negative Normal [facility] Comment on above: Order Comment: Speci men Type: BLOOD SPECIMEN [facility] Address: [address] [place] [address] Performed By: #### T SCR #### [facility] CLIA [id number] [address] Rh Nom (Bld) Positive Normal [facility] Comment on above: Order Comment: Speci men Type: BLOOD SPECIMEN [facility] Address: [address] [place] [address] Performed By: #### T SCR #### [facility] CLIA [id number] [address] TYPE AND SCREEN EXPIRATION 07/09/2022 23:59 Normal [facility] Comment on above: Order Comment: Speci men Type: BLOOD SPECIMEN [facility] Address: [address] [place] [address] Performed By: #### T SCR #### [facility] CLIA [id number] [address] [place] XR CHEST 1V FRONTALon 2022 XR CHEST [...] right hemidiaphragm. IMPRESSION: No acute radiographic abnormality. Patient Sitter: PSCB Transcribe Date/Time: Jul 06 2022 11:12A Dictated by : PARISA ALVARADO MD This examination was interpreted and the report reviewed and electronically signed by: PARISA ALVARADO MD on Jul 06 2022 11:13AM EST [id number] Normal [facility] aPTT PPPon 07-06-2022 aPTT Coag (PPP) [Time] 30.1 s Normal 23.0-32.4 [facility] Comment on above: Order Comment: Speci men Type: BLOOD SPECIMENOrdering Facility: [facility] Address: [address] [place] [address] Performed By: #### 3 4528-0, 95307-0 ####[facility] LABORATORYCLIA [id number] [address] OF [facility] Vital Signs Date Time Vital Sign Value Performing Clinician Facility 02-08-2025 11:18-0400 Body mass index (BMI) [Ratio] 23.46 kg/m2 Erum Castaneda PA-C Work Phone: [facility] 02-08-2025 11:18-040 Body temperature 97.59 [degF] Erum Castaneda PA-C Work Phone: [facility] 02-08-2025 11:18-040 Body weight 73.48 kg Erum Castaneda PA-C Work Phone: [facility] 02-08-2025 11:18-040 Diastolic blood pressure 81 mm[Hg] Erum Castaneda PA-C Work Phone: [facility] 02-08-2025 11:18-0400 Heart rate 73 /min Erum Castaneda PA-C Work Phone: [facility] 02-08-2025 11:18-0400 Respiratory rate 16 /min Erum Castaneda PA-C Work Phone: [facility] 02-08-2025 11:18-0400 SaO2% (BldA) [Mass fraction] 98 % Erum Castaneda PA-C Work Phone: [facility] 02-08-2025 11:18-0400 Systolic blood pressure 122 mm[Hg] Erum Castaneda PA-C Work Phone: [facility] 01-23-2025 12:48-0400 Body mass index (BMI) [Ratio] 23.89 kg/m2 Erum Castaneda PA-C Work Phone: [facility] 01-23-2025 12:48-0400 Body weight 74.84 kg Erum Castaneda PA-C Work Phone: [facility] 01-23-2025 12:48-0400 Diastolic blood pressure 69 mm[Hg] Erum Castaneda PA-C Work Phone: [facility] 01-23-2025 12:48-0400 Heart rate 80 /min Ermu Castaneda PA-C Work Phone: [facility] 01-23-2025 12:48-0400 Respiratory rate 14 /min Erum Castaneda PA-C Work Phone: [facility] 01-23-2025 12:48-0400 SaO2% (BldA) [Mass fraction] 95 % Erum Castaneda PA-C Work Phone: [facility] 01-23-2025 12:48-0400 Systolic blood pressure 104 mm[Hg] Erum Castaneda PA-C Work Phone: [facility] 01-20-2025 12:48-0400 Body temperature 98.4 [degF] Dr. Fredrick Feliciano MD Work Phone: [facility] 01-20-2025 12:48-0400 Diastolic blood pressure 86 mm[Hg] Dr. Fredrick Feliciano MD Work Phone: [facility] 01-20-2025 12:48-0400 Heart rate 80 /min Dr. Fredrick Feliciano MD Work Phone: 1(458)428-213429 [place] [address] 01-20-2025 12:48-0400 Respiratory rate 16 /min Dr. Fredrick Feliciano MD Work Phone: 2(690)395-925629 [place] [address] 01-20-2025 12:48-0400 SaO2% (BldA) [Mass fraction] 100 % Dr. Fredrick Feliciano MD Work Phone: 5(274)277-569329 [place] [address] 01-20-2025 12:48-0400 Systolic blood pressure 134 mm[Hg] Dr. Fredrick Feliciano MD Work Phone: 0(937)718-981829 [place] [address] 01-20-2025 09:41-0400 Body height 177.[address] Fredrick Feliciano MD Work Phone: 5(692)749-063355 [place] [address] 01-20-2025 09:41-0400 Body mass index (BMI) [Ratio] 23 kg/m2 Dr. Fredrick Feliciano MD Work Phone: 1(902)406-307329 [place] [address] 01-20-2025 09:41-0400 Body weight 72.[address] Fredrick Feliciano MD Work Phone: 8(250)235-858029 [place] [address] 01-18-2025 09:38-0400 Body height 177 cm Erum Castaneda PA-C Work Phone: [facility] 01-18-2025 09:38-0400 Body mass index (BMI) [Ratio] 23.17 kg/m2 Erum Castaneda PA-C Work Phone: [facility] 01-18-2025 09:38-0400 Body temperature 97.2 [degF] Erum [facility] Work Phone: [facility] 01-18-2025 09:38-0400 Body weight 72.58 kg Erum [facility] Work Phone: [facility] 01-18-2025 09:38-0400 Diastolic blood pressure 56 mm[Hg] Erum Castaneda PA-C Work Phone: [facility] 01-18-2025 09:38-0400 Heart rate 80 /min Erum Castaneda PA-C Work Phone: [facility] 01-18-2025 09:38-0400 Respiratory rate 16 /min Erum Castaneda PA-C Work Phone: [facility] 01-18-2025 09:38-0400 SaO2% (BldA) [Mass fraction] 97 % Erum Castaneda PA-C Work Phone: [facility] 01-18-2025 09:38-0400 Systolic blood pressure 83 mm[Hg] Erum Castaneda PA-C Work Phone: [facility] 07-10-2024 11:41-0500 Body mass index (BMI) [Ratio] 25.05 kg/m2 Erum Castaneda PA-C Work Phone: [facility] 07-10-2024 11:41-0500 Body temperature 97.11 [degF] Erum Castaneda PA-C Work Phone: [facility] 07-10-2024 11:41-0500 Body weight 78.47 kg Erum Castaneda PA-C Work Phone: [facility] 07-10-2024 11:41-0500 Diastolic blood pressure 69 mm[Hg] Erum Castaneda PA-C Work Phone: [facility] 07-10-2024 11:41-0500 Heart rate 71 /min Erum Castaneda PA-C Work Phone: [facility] 07-10-2024 11:41-0500 Respiratory rate 18 /min Erum Castaneda PA-C Work Phone: [facility] 07-10-2024 11:41-0500 SaO2% (BldA) [Mass fraction] 98 % Erum Castaneda PA-C Work Phone: [facility] 07-10-2024 11:41-0500 Systolic blood pressure 124 mm[Hg] Erum Castaneda PA-C Work Phone: [facility] 06-26-2024 11:24-0500 Body mass index (BMI) [Ratio] 24.32 kg/m2 Erum Castaneda PA-C Work Phone: [facility] 06-26-2024 11:24-0500 Body temperature 97.7 [degF] Erum Castaneda PA-C Work Phone: [facility] 06-26-2024 11:24-0500 Body weight 76.2 kg Erum Castaneda PA-C Work Phone: [facility] 06-26-2024 11:24-0500 Diastolic blood pressure 70 mm[Hg] Erum Castaneda PA-C Work Phone: [facility] 06-26-2024 11:24-0500 Heart rate 58 /min Erum Castaneda PA-C Work Phone: [facility] 06-26-2024 11:24-0500 Respiratory rate 16 /min Erum Castaneda PA-C Work Phone: [facility] 06-26-2024 11:24-0500 SaO2% (BldA) [Mass fraction] 100 % Erum Castaneda PA-C Work Phone: [facility] 06-26-2024 11:24-0500 Systolic blood pressure 122 mm[Hg] Erum Castaneda PA-C Work Phone: [facility] 12-27-2023 09:24-0400 Body height 177 cm Erum Castaneda PA-C Work Phone: [facility] 12-27-2023 09:24-0400 Body mass index (BMI) [Ratio] 25.19 kg/m2 Erum Castaneda PA-C Work Phone: [facility] 12-27-2023 09:24-0400 Body temperature 98.01 [degF] Erum Castaneda PA-C Work Phone: [facility] 12-27-2023 09:24-0400 Body weight 78.93 kg Erum Castaneda PA-C Work Phone: [facility] 12-27-2023 09:24-0400 Diastolic blood pressure 70 mm[Hg] Erum Castaneda PA-C Work Phone: [facility] 12-27-2023 09:24-0400 Heart rate 76 /min Erum Castaneda PA-C Work Phone: [facility] 12-27-2023 09:24-0400 Respiratory rate 18 /min Erum Castaneda PA-C Work Phone: [facility] 12-27-2023 09:24-0400 SaO2% (BldA) [Mass fraction] 99 % Erum Castaneda PA-C Work Phone: [facility] 12-27-2023 09:24-0400 Systolic blood pressure 118 mm[Hg] Erum Castaneda PA-C Work Phone: [facility] 04-03-2023 12:00-0400 Body temperature 98.01 [degF] Karol Hope INJECTION MOLDING TECHNICIAN.[employer] Work Phone: [facility] 04-03-2023 12:00-0400 Body weight 83.46 kg Karol Hope INJECTION MOLDING TECHNICIAN.[employer] Work Phone: [facility] 04-03-2023 12:00-0400 Diastolic blood pressure 79 mm[Hg] Karol Hope INJECTION MOLDING TECHNICIAN.[employer] Work Phone: [facility] 04-03-2023 12:00-0400 Heart rate 72 /min Karol Hope INJECTION MOLDING TECHNICIAN.[employer] Work Phone: [facility] 04-03-2023 12:00-0400 Respiratory rate 18 /min Karol Hope INJECTION MOLDING TECHNICIAN.[employer] Work Phone: [facility] 04-03-2023 12:00-0400 SaO2% (BldA) [Mass fraction] 98 % Karol Hope INJECTION MOLDING TECHNICIAN.[employer] Work Phone: [facility] 04-03-2023 12:00-0400 Systolic blood pressure 142 mm[Hg] Karol Hope INJECTION MOLDING TECHNICIAN.[employer] Work Phone: [facility] 10-12-2022 15:08-0400 Body height 177.8 cm Ivania Castellanos MD Work Phone: [facility] 10-12-2022 15:08-0400 Body weight 82.4 kg Ivania Castellanos MD Work Phone: [facility] 10-12-2022 15:08-0400 Diastolic blood pressure 76 mm[Hg] Ivania Castellanos MD Work Phone: [facility] 10-12-2022 15:08-0400 Heart rate 72 /min Ivania Castellanos MD Work Phone: [facility] 10-12-2022 15:08-0400 SaO2% (BldA) [Mass fraction] 100 % Ivania Castellanos MD Work Phone: [facility] 10-12-2022 15:08-0400 Systolic blood pressure 138 mm[Hg] Ivania Castellanos MD Work Phone: [facility] 08-18-2022 11:09-0400 Body height 177.8 cm Leah Blair APRN.[employer] Work Phone: [facility] 08-18-2022 11:09-0400 Body weight 75.3 kg Leah Blair INJECTION MOLDING TECHNICIAN.[employer] Work Phone: [facility] 08-18-2022 11:09-0400 Diastolic blood pressure 84 mm[Hg] Leah Blair INJECTION MOLDING TECHNICIAN.[employer] Work Phone: [facility] 08-18-2022 11:09-0400 Heart rate 72 /min Leah Blair INJECTION MOLDING TECHNICIAN.[employer] Work Phone: [facility] 08-18-2022 11:09-0400 SaO2% (BldA) [Mass fraction] 100 % Leah Blair INJECTION MOLDING TECHNICIAN.[employer] Work Phone: [facility] 08-18-2022 11:09-0400 Systolic blood pressure 143 mm[Hg] Leah Blair APRN.[employer] Work Phone: [facility] 07-28-2022 10:32-0500 Body temperature 97.3 [degF] Amie Halmindicarolyne-Leyva PT Work Phone: [facility] 07-28-2022 10:32-0500 Diastolic blood pressure 78 mm[Hg] Amieviviana Meraz-Leyva PT Work Phone: [facility] 07-28-2022 10:32-0500 Heart rate 79 /min Amie HalmindiaureaLeyva PT Work Phone: [facility] 07-28-2022 10:32-0500 Respiratory rate 16 /min Amie Reinamindicarolyne-Leyva PT Work Phone: [facility] 07-28-2022 10:32-0500 SaO2% (BldA) [Mass fraction] 99 % Amieviviana DesaiLeyva PT Work Phone: [facility] 07-28-2022 10:32-0500 Systolic blood pressure 132 mm[Hg] Amie Reinadercarolyne-Leyva PT Work Phone: [facility] 07-17-2022 09:34-0500 Body height 177.8 cm Leah Blair APRN.[employer] Work Phone: [facility] 07-17-2022 09:34-0500 Body weight 75.3 kg Leah Blair APRN.[employer] Work Phone: [facility] 07-17-2022 09:34-0500 Diastolic blood pressure 66 mm[Hg] Leah Blair INJECTION MOLDING TECHNICIAN.[employer] Work Phone: [facility] 07-17-2022 09:34-0500 Heart rate 78 /min Leah Blair INJECTION MOLDING TECHNICIAN.[employer] Work Phone: [facility] 07-17-2022 09:34-0500 SaO2% (BldA) [Mass fraction] 97 % Leah Blair INJECTION MOLDING TECHNICIAN.[employer] Work Phone: [facility] 07-17-2022 09:34-0500 Systolic blood pressure 90 mm[Hg] Leah Blair LECTURER OF [employer] Work Phone: [facility] 07-16-2022 12:10-0500 Body temperature 68 [degF] Erika Medina SOCIAL WORK LECTURER Work Phone: [facility] 07-16-2022 12:10-0500 Diastolic blood pressure 68 mm[Hg] Erika Medina SOCIAL WORK LECTURER Work Phone: [facility] 07-16-2022 12:10-0500 Heart rate 98 /min Erika Medina SOCIAL WORK LECTURER Work Phone: [facility] 07-16-2022 12:10-0500 Respiratory rate 18 /min Erika Medina SOCIAL WORK LECTURER Work Phone: [facility] 07-16-2022 12:10-0500 SaO2% (BldA) [Mass fraction] 98 % Erika Medina SOCIAL WORK LECTURER Work Phone: [facility] 07-16-2022 12:10-0500 Systolic blood pressure 118 mm[Hg] Erika Medina SOCIAL WORK LECTURER Work Phone: [facility] 07-16-2022 09:51-0500 Body weight 75.3 kg Fredrick Feliciano MD Work Phone: [facility] 07-16-2022 09:51-0500 Diastolic blood pressure 84 mm[Hg] Fredrick Feliciano MD Work Phone: [facility] 07-16-2022 09:51-0500 Heart rate 78 /min Fredrick Feliciano MD Work Phone: [facility] 07-16-2022 09:51-0500 Respiratory rate 16 /min Fredrick Feliciano MD Work Phone: [facility] 07-16-2022 09:51-0500 Systolic blood pressure 124 mm[Hg] Fredrick Feliciano MD Work Phone: [facility] 07-15-2022 13:43-0500 Body temperature 98.29 [degF] Nayana Berto OT/L Work Phone: [facility] 07-15-2022 13:43-0500 Diastolic blood pressure 68 mm[Hg] Nayana Berto OT/L Work Phone: [facility] 07-15-2022 13:43-0500 Heart rate 68 /min Nayana Berto OT/L Work Phone: [facility] 07-15-2022 13:43-0500 Respiratory rate 18 /min Nayana Berto OT/L Work Phone: [facility] 07-15-2022 13:43-0500 SaO2% (BldA) [Mass fraction] 94 % Nayana Berto OT/L Work Phone: [facility] 07-15-2022 13:43-0500 Systolic blood pressure 124 mm[Hg] Nayana Berto OT/L Work Phone: [facility] 07-13-2022 14:28-0500 Body temperature 97.9 [degF] Amie Ivoryman-Leyva PT Work Phone: [facility] 07-13-2022 14:28-0500 Diastolic blood pressure 76 mm[Hg] Amie Halderman-Leyva PT Work Phone: [facility] 07-13-2022 14:28-0500 Heart rate 70 /min Amie Ivoryman-Leyva PT Work Phone: [facility] 07-13-2022 14:28-0500 Respiratory rate 16 /min Amie Reinaderman-Leyva PT Work Phone: [facility] 07-13-2022 14:28-0500 SaO2% (BldA) [Mass fraction] 99 % Amie Reinaderman-Leyva PT Work Phone: [facility] 07-13-2022 14:28-0500 Systolic blood pressure 130 mm[Hg] Amie Halderman-Leyva PT Work Phone: [facility] 07-11-2022 13:27-0500 Body temperature 97.3 [degF] Tami Josue PT Work Phone: [facility] 07-11-2022 13:27-0500 Diastolic blood pressure 78 mm[Hg] Tami Diazox PT Work Phone: [facility] 07-11-2022 13:27-0500 Heart rate 72 /min Tami Diazox PT Work Phone: [facility] 07-11-2022 13:27-0500 Respiratory rate 16 /min Tami Diazox PT Work Phone: [facility] 07-11-2022 13:27-0500 SaO2% (BldA) [Mass fraction] 97 % Tami Diazox PT Work Phone: [facility] 07-11-2022 13:27-0500 Systolic blood pressure 132 mm[Hg] Tami Diazox PT Work Phone: [facility] Encounters Encounter Date Encounter Type Care Provider Facility Start: 02-12-2025 End: 02-12-2025 Follow-up encounter Erum Castaneda PA-C Work Phone: [facility] Start: 02-08-2025 End: 02-08-2025 ambulatory FREDRICK CLEMONSEY Facility:[facility] Start: 02-08-2025 End: 02-08-2025 Office outpatient visit 25 minutes Erum Castaneda PA-C Work Phone: [facility] [place] Comment on above: Orthostatic hypotens ion (Primary Dx); Hyponatremia; Hypertension, essential; Alcohol abuse; JERRY (acute kidney injury); Fatty liver, alcoholic; Syncope, unspecified syncope type; Orthostatic lightheadedness Start: 02-08-2025 End: 02-08-2025 ambulatory ERUM CASTANEDA Facility:[facility] Start: 01-25-2025 End: 01-25-2025 Telephone encounter Erum Castaneda PA-C Work Phone: [facility] [place] Comment on above: Results Start: 01-24-2025 End: 01-24-2025 Follow-up encounter Erum Castaneda PA-C Work Phone: [facility] Comment on above: Results Start: 01-23-2025 End: 01-23-2025 Office outpatient visit 25 minutes Erum Castaneda PA-C Work Phone: [facility] [place] Comment on above: Hyponatremia (Primar y Dx); Hypertension, essential; JERRY (acute kidney injury); Orthostatic hypotension Start: 01-23-2025 End: 01-23-2025 ambulatory FREDRICK FELICIANO Facility:[facility] Start: 01-20-2025 End: 01-20-2025 Emergency department patient visit Dr. Fredrick Feliciano MD Work Phone: -Emergency Department Work Phone: Start: 01-19-2025 End: 01-19-2025 Follow-up encounter Erum Castaneda PA-C Work Phone: [facility] Comment on above: Results Start: 01-18-2025 End: 01-18-2025 Subsequent hospital visit by physician [facility] [place] Work Phone: Radiology Comment on above: Fall, initial encoun ter [W19.XXXA] Start: 01-18-2025 End: 01-18-2025 ambulatory FREDRICK FELICIANO Facility:[facility] Start: 01-18-2025 End: 01-18-2025 Office outpatient visit 25 minutes Erum Castaneda PA-C Work Phone: [facility] Comment on above: Orthostatic hypotens ion (Primary Dx); Fall, initial encounter; Hypertension, essential; Rib pain; Hyponatremia; Alcohol abuse; Fatty liver, alcoholic; Folate deficiency; Prostate disorder; Anemia, unspecified type; Contusion of right elbow, initial encounter Start: 01-18-2025 End: 01-18-2025 ambulatory FREDRICK FELICIANO Facility:[facility] Start: 11-06-2024 End: 11-06-2024 Refill Fredrick Feliciano MD Work Phone: [facility] [place] Comment on above: Refill Request Start: 10-05-2024 End: 10-06-2024 Refill Fredrick Feliciano MD Work Phone: [facility] [place] Comment on above: Refill Request Start: 07-10-2024 End: 07-10-2024 ambulatory FREDRICK FELICIANO Facility:[facility] Start: 07-10-2024 End: 07-10-2024 Patient encounter procedure Erum Castaneda PA-C Work Phone: [facility] [place] Comment on above: Hypertension, essent ial (Primary Dx); Orthostatic hypotension Start: 07-06-2024 End: 07-06-2024 Telephone encounter Erum Castaneda PA-C Work Phone: [facility] [place] Comment on above: Results Start: 07-04-2024 End: 07-04-2024 ambulatory FREDRICK FELICIANO Facility:[facility] Start: 06-26-2024 End: 06-26-2024 ambulatory FREDRICK FELICIANO Facility:[facility] Start: 06-26-2024 End: 06-26-2024 Patient encounter procedure Erum Castaneda PA-C Work Phone: [facility] [place] Comment on above: Hypertension, essent ial (Primary Dx); PVD (peripheral vascular disease) ([facility]); Alcohol abuse; Hyponatremia; Orthostatic hypotension; Alkaline phosphatase elevation Start: 06-21-2024 End: 06-21-2024 ambulatory ERUM CASTANEDA Facility:[facility] Start: 05-02-2024 End: 05-02-2024 Refill Fredrick Feliciano MD Work Phone: [facility] [place] Comment on above: Refill Request Start: 02-29-2024 End: 02-29-2024 Telephone encounter Fredrikc Feliciano MD Work Phone: [address] [place] [address] Comment on above: Patient Question Start: 02-07-2024 End: 02-07-2024 Telephone encounter Erum Castaneda PA-C Work Phone: [facility] [place] Comment on above: Results Start: 01-14-2024 Telephone encounter Erum rollins PA-C Work Phone: [facility] [place] Comment on above: Results Start: 01-13-2024 End: 01-13-2024 Subsequent hospital visit by physician [facility] Work Phone: Radiology Comment on above: Alkaline phosphatase elevation [R74.8] Start: 01-06-2024 Telephone encounter Erum Eliza rollins PA-C Work Phone: [facility] [place] Comment on above: Results Start: 12-30-2023 Telephone encounter Erum Kay ayo MONTERO Work Phone: [facility] [place] Comment on above: Results Start: 12-27-2023 End: 12-27-2023 Patient encounter procedure Erum Leonel MONTERO Work Phone: [facility] [place] Comment on above: Medicare annual well ness visit, subsequent (Primary Dx); Advance directive discussed with patient; Screening for depression; Encounter for screening examination for other mental health and behavioral disorders; Abnormal skin growth; Alcohol abuse; Hyponatremia; PVD (peripheral vascular disease) (HCC); Hypertension, essential; Prostate disorder; Folate deficiency; Fatty liver, alcoholic Start: 10-21-2023 Refill Марина brewster APRN.[employer] [facility] Comment on above: Refill Request Start: 10-21-2023 Telephone encounter Fredrick Feliciano MD Work Phone: [facility] Start: 07-19-2023 ambulatory [facility] Comment on above: Population Health Na vigation Outreach ([place] [facility]) Start: 04-07-2023 End: 04-07-2023 Subsequent hospital visit by physician Melanie [facility] [place] Work Phone: Radiology Comment on above: Acute bilateral low back pain without sciatica [M54.50] Start: 04-03-2023 End: 04-03-2023 Patient encounter procedure Karol Hope APRN.[employer] Work Phone: [facility] Comment on above: Acute bilateral low back pain without sciatica (Primary Dx) Start: 03-16-2023 Telephone encounter Марина cohen APRN.[employer] [facility] Comment on above: Results Start: 01-01-2023 Telephone encounter Fredrick Feliciano MD Work Phone: [facility] [place] Comment on above: Results Start: 12-31-2022 End: 12-31-2022 Subsequent hospital visit by physician [facility] ([facility]) Work Phone: [facility] Comment on above: Alcohol abuse [F10.1 0] Start: 12-23-2022 Refill Erum Mcnamara on PA-C Work Phone: [facility] [place] Comment on above: Results Forms Start: 12-16-2022 Patient encounter procedure Erum Castaneda PA-C Work Phone: [facility] Work Phone: Start: 10-12-2022 End: 10-12-2022 ambulatory LEAH BLAIR [facility] Start: 10-12-2022 End: 10-12-2022 Patient encounter procedure Ivania Estrada MD Work Phone: [facility] Comment on above: Spinal stenosis in c ervical region (Primary Dx); Closed displaced fracture of seventh cervical vertebra with routine healing, unspecified fracture morphology, subsequent encounter Start: 10-12-2022 End: 10-12-2022 Subsequent hospital visit by physician [facility] SCAN [place] BACK[employer] IN MACHINE TENDER Comment on above: Closed displaced fra cture of seventh cervical vertebra with routine healing, unspecified fracture morphology, subsequent encounter [S12.600D] Spinal stenosis in c ervical region [M48.02] Start: 09-17-2022 Telephone encounter Fredrick Feliciano MD Work Phone: [facility] Comment on above: Results Start: 08-18-2022 End: 08-18-2022 ambulatory LEAH BLAIR [facility] Start: 08-18-2022 End: 08-18-2022 Patient encounter procedure Leah Blair APRN.CNP Work Phone: [facility] Comment on above: Spinal stenosis in c ervical region (Primary Dx); Closed displaced fracture of seventh cervical vertebra with routine healing, unspecified fracture morphology, subsequent encounter; Closed fracture of first thoracic vertebra with routine healing, unspecified fracture morphology, subsequent encounter Start: 08-18-2022 End: 08-18-2022 Subsequent hospital visit by physician [facility] Nurse [facility] [place] [employer] IN MACHINE TENDER Comment on above: Closed fracture of s pinous process of cervical vertebra, subsequent encounter [S12.9XXD] Start: 08-05-2022 ambulatory Fredrick mata MD Work Phone: [facility] Comment on above: Allied Health Visit (Medication Adherence Outreach ) Start: 08-04-2022 Home visit Fredrick mata MD Work Phone: [facility] [place] Comment on above: Closed displaced fra cture [...] Home visit Amie Nixon PT Work Phone: [facility] Comment on above: PT AGENCY DC W VISIT Start: 07-17-2022 End: 07-17-2022 ambulatory LEAH BLAIR Facility:[facility] Start: 07-17-2022 End: 07-17-2022 Patient encounter procedure Leah Blair INJECTION MOLDING TECHNICIAN.[employer] Work Phone: [facility] Comment on above: Spinal stenosis in c ervical region (Primary Dx); Closed fracture of spinous process of cervical vertebra, subsequent encounter; Closed fracture of first thoracic vertebra with routine healing, unspecified fracture morphology, subsequent encounter Start: 07-17-2022 End: 07-17-2022 Subsequent hospital visit by physician [facility] Nurse [employer] IN MACHINE TENDER Comment on above: Closed displaced fra cture of seventh cervical vertebra with routine healing, unspecified fracture morphology, subsequent encounter [S12.600D] Start: 07-16-2022 Telephone encounter Fredrick Feliciano MD Work Phone: [facility] [place] Comment on above: Results Start: 07-16-2022 End: 07-16-2022 Home visit Erika Haney SOCIAL WORK LECTURER Work Phone: [facility] Comment on above: SOCIAL WORK LECTURER ROUTINE Start: 07-16-2022 End: 07-16-2022 Patient encounter procedure Fredrick Feliciano MD Work Phone: [facility] [place] Comment on above: Closed fracture of c ervical vertebra, unspecified cervical vertebral level, initial encounter ([facility]) (Primary Dx); Hypertension, essential; Hyponatremia; Alcohol abuse Start: 07-15-2022 End: 07-15-2022 Refill Ivania Estrada MD Work Phone: [facility] Comment on above: Refill Request Medication Problem OT EVAL Start: 07-13-2022 End: 07-13-2022 Home visit Amie Nixon PT Work Phone: [facility] Comment on above: PT ROUTINE Refill Request Start: 07-11-2022 End: 07-11-2022 Home visit Tami Josue PT Work Phone: [facility] Comment on above: PT SOC Start: 07-09-2022 ambulatory Rula Leong RN [facility] Start: 07-09-2022 Telephone encounter Ivania wilcox MD Work Phone: [facility] Comment on above: Appointment Transition Of Care ( Discharged 2.8.23 initial outreach) Start: 07-08-2022 Orders Only Medina ji PA-C Work Phone: [facility] Comment on above: Closed displaced fra cture of seventh cervical vertebra with routine healing, unspecified fracture morphology, subsequent encounter (Primary Dx); Compression fracture of T1 vertebra, sequela Start: 07-06-2022 End: 07-08-2022 Evaluation and management of inpatient DAVID BOYKIN Facility:[facility] Start: 06-09-2022 Telephone encounter Erum rollins PA-C Work Phone: [facility] Comment on above: Results Start: 06-03-2022 Refill Erum Mcnamara on PA-C Work Phone: [facility] Comment on above: Refill Request Start: 05-18-2022 Telephone encounter Fredrick Feliciano MD [facility] Phone[facility] Comment on above: Patient Update Start: 12-03-2021 Telephone encounter Fredrick Feliciano MD Work Phone: [facility] Comment on above: Results Start: 11-19-2021 Patient encounter procedure Fredrick Feliciano MD Work Phone: [facility] Work Phone: Start: 10-18-[address] Cheryl Feliciano MD Work Phone: [facility] Procedures Date Procedure Procedure Detail Performing Clinician Start: 01-20-[address] Fredrick Feliciano MD Work Phone: Start: 01-18-2025 Lipid 1996 panel - S vishnu or Plasma Erum Castaneda PA-C Work Phone: Start: 01-13-2024 Us abdominal real ti me w/image limited Erum Castaneda PA-C Work Phone: Start: 12-27-2023 Adult depression scr eening assessment Erum Castaneda PA-C Work Phone: Start: 12-27-2023 Lipid 1996 panel - S vishnu or Plasma Erum Castaneda PA-C Work Phone: Start: 04-07-2023 Radex spine lumbosac ral 2/3 views Karol Hope INJECTION MOLDING TECHNICIAN.[employer] Work Phone: Start: 12-31-2022 Cta abdl aorta&bi il iofem w/contrast&postp Fredrick Feliciano MD Work Phone: Start: 12-16-2022 Lipid 1996 panel - S vishnu or Plasma Марина Aparicio INJECTION MOLDING TECHNICIAN.[employer] Work Phone: Start: 07-06-2022 Antibody screen LEAH BLAIR Comment on above: Order Comment: Speci men Type: BLOOD SPECIMEN Ordering Facility: [facility] Address: [address] [place] [id number] Performed By: #### T SCR #### [facility] CLIA [id number] [address] [place] [id number] [place] Start: 11-19-2021 Adult depression scr eening assessment Fredrick Feliciano MD Work Phone: Start: 01-09-2019 Colonoscopy Fredrick das MD Work Phone: Plan of Treatment Date Care Activity Detail Author Start: 01-18-2030 Lipid panel Lipid Screening [facility] Start: 01-09-2029 Colonoscopy COLONOSCOPY [facility] Start: 01-09-2029 COLORECTAL CANCER SCREENING COLORECTAL CANCER SCREENING [facility] Start: 01-09-2029 Screening for malignant neoplasm of colon [facility] Start: 12-26-2028 Lipid panel Lipid Screening [facility] Start: 2028 RSV Vaccine (1 - 1-dose 75+ series) RSV Vaccine (1 - 1-dose 75+ series) [facility] Start: 02-09-2028 Diabetes Screening Diabetes Screening [facility] Start: 02-05-2028 Urine microalbumin profile [facility] Start: 01-24-2028 Diabetes Screening Diabetes Screening [facility] Start: 01-19-2028 Diabetes Screening Diabetes Screening [facility] Start: 12-17-2027 Lipid 1996 panel - Serum or Plasma Lipid Screening [facility] Start: 12-17-2027 Lipid panel Lipid Screening [facility] Start: 12-17-2027 LIPID SCREEN LIPID SCREEN [facility] Start: 06-21-2027 Diabetes Screening Diabetes Screening [facility] Start: 12-26-2026 Diabetes Screening Diabetes Screening [facility] Start: 11-19-2026 LIPID SCREEN LIPID SCREEN [facility] Start: 11-19-2026 PROSTATE CANCER SCREENING DISCUSSION PROSTATE CANCER SCREENING DISCUSSION [facility] Start: 06-23-2026 Diabetes Screening Diabetes Screening [facility] Start: 02-08-2026 Annual PCP Team Chronic Disease Visit Annual PCP Team Chronic Disease Visit [facility] Start: 01-23-2026 Annual PCP Team Chronic Disease Visit Annual PCP Team Chronic Disease Visit [facility] Start: 01-18-2026 Annual PCP Team Chronic Disease Visit Annual PCP Team Chronic Disease Visit [facility] Start: 12-16-2025 DIABETES SCREEN DIABETES SCREEN [facility] Start: 12-16-2025 Diabetes Screening Diabetes Screening [facility] Start: 09-16-2025 DIABETES SCREEN DIABETES SCREEN [facility] Start: 07-16-2025 DIABETES SCREEN DIABETES SCREEN [facility] Start: 07-10-2025 Annual PCP Team Chronic Disease Visit Annual PCP Team Chronic Disease Visit [facility] Start: 07-10-2025 BP Controlled (<130/80) BP Controlled (<130/80) [facility] in Start: 07-08-2025 DIABETES SCREEN DIABETES SCREEN [facility] Start: 06-26-2025 Annual PCP Team Chronic Disease Visit Annual PCP Team Chronic Disease Visit [facility] Start: 06-26-2025 BP Controlled (<130/80) BP Controlled (<130/80) [facility] Start: 06-26-2025 Covid-19 Vaccine () Covid-19 Vaccine () [facility] Comment on above: Postponed from 01/30/2024 (Declined at t his time) Start: 06-08-2025 DIABETES SCREEN DIABETES SCREEN [facility] Start: 03-13-2025 End: 03-13-2025 Patient encounter procedure 03/13/2025 11:40 AM EDT Office Visit [facility] [address] [place] [address] Erum Castaneda PA-C [address] [place] [address] Medicare Wellness/recheck [facility] Comment on above: Medicare Wellness/recheck Start: 02-22-2025 End: 02-22-2025 Patient encounter procedure 02/22/2025 12:30 PM EDT Office Visit Vasculary Surgery [address] [place] [id number] Orthostatic hypotension [I95.1]; Orthostatic lightheadedness [R42] [facility] Comment on above: Orthostatic hypotension [I95.1]; Orthost atic lightheadedness [R42] Start: 02-22-2025 End: 02-22-2025 Patient encounter procedure 02/22/2025 11:20 AM EDT Office Visit Cardiology [address] [place] [address] Orthostatic hypotension [I95.1]; Orthostatic lightheadedness [R42] Cardiology Comment on above: Orthostatic hypotension [I95.1]; Orthost atic lightheadedness [R42] Start: 02-19-2025 DIABETES SCREEN DIABETES SCREEN [facility] Start: 02-08-2025 End: 05-10-2025 Basic metabolic 2000 panel - Serum or Plasma [facility] Work Phone: Comment on above: Expected: 02/08/2025, Expires: Start: 02-08-2025 End: 02-08-2025 Patient encounter procedure 02/08/2025 11:40 AM EDT Office [facility] [address] [facility] [place] [address] Erum Castaneda PA-C [address] [place] [place] [address] Medicare Wellness/bp recheck [facility] Comment on above: Medicare Wellness/bp recheck Start: 01-23-2025 End: 04-24-2025 Basic metabolic 2000 panel - Serum or Plasma [facility] Work Phone: Comment on above: Expected: 01/23/2025, Expires: Start: 01-20-2025 [facility] Start: 01-18-2025 End: 04-19-2025 VITAMIN B1 (THIAMINE), WHOLE BLOOD [facility] Comment on above: Expected: 01/18/2025, Expires: Start: 01-09-2025 End: 01-09-2025 Patient encounter procedure [facility] [place] Comment on above: Medicare Wellness Start: 12-26-2024 Annual PCP Team Chronic Disease Visit Annual PCP Team Chronic Disease Visit [facility] Start: 12-26-2024 Anxiety Screening Anxiety Screening [facility] Start: 12-26-2024 BP Controlled (<130/80) BP Controlled (<130/80) [facility] Start: 12-26-2024 Covid-19 Vaccine ( season) Covid-19 Vaccine ( season) [facility] Comment on above: Postponed from 01/29/2023 (Declined at t his time) Start: 12-26-2024 Depression Screening Depression Screening [facility] Start: 12-26-2024 RSV Vaccine (1 - 1-dose 60+ series) RSV Vaccine (1 - 1-dose 60+ series) [facility] Comment on above: Postponed from 2013 (Declined at t his time) Start: 11-19-2024 DIABETES SCREEN DIABETES SCREEN [facility] Start: 07-10-2024 End: 07-10-2024 Patient encounter procedure 07/10/2024 11:40 AM EST Office Visit [facility] [address] [facility] [place] [address] Erum Casatneda PA-C [address] [facility] [place], [place] [id number] 2 wk follow up Family [facility] [place] Comment on above: 2 wk follow up Start: 06-29-2024 End: 06-29-2024 Patient encounter procedure 06/29/2024 10:40 AM EST Office Visit Family [facility] [place] [address] [facility] [place] [address] Erum Castaneda PA-C [address] [place], [place] [id number] 6 month routine f/u Family [facility] [place] Comment on above: 6 month routine f/u Start: 06-26-2024 End: 09-25-2024 ALK PHOS ISOENZYM BL ALK PHOS ISOENZYM BL Lab Routine Alkaline phosphatase elevation Expected: 06/26/2024, Expires: 09/25/2024 [facility] Work Phone: Comment on above: Expected: 06/26/2024, Expires: Start: 06-26-2024 End: 09-25-2024 CBC W Auto Differential panel - Blood COMPLETE BLOOD COUNT AND DIFFERENTIAL Lab Routine Alkaline phosphatase elevation Expected: 06/26/2024, Expires: 09/25/2024 [facility] Comment on above: Expected: 06/26/2024, Expires: Start: 06-26-2024 End: 09-25-2024 Gamma glutamyl transferase [Enzymatic activity/volume] in Serum or Plasma GGT Lab Routine Alkaline phosphatase elevation Expected: 06/26/2024, Expires: 09/25/2024 [facility] Comment on above: Expected: 06/26/2024, Expires: Start: 06-26-2024 End: 06-26-2024 Patient encounter procedure 06/26/2024 11:40 AM EST Office Visit [facility] [address] [place] [address] Erum Castaneda PA-C [address] [facility], [place] [id number] 6 month FU [facility] Comment on above: 6 month FU Start: 06-23-2024 Annual PCP Team Chronic Disease Visit Annual PCP Team Chronic Disease Visit [facility] Start: 06-23-2024 BP Controlled (<130/80) BP Controlled (<130/80) [facility] Start: 05-31-2024 Advance Directive Discussion Advance Directive Discussion [facility] Start: 05-31-2024 End: 08-30-2024 CBC W Auto Differential panel - Blood COMPLETE BLOOD COUNT AND DIFFERENTIAL Lab Routine Anemia, unspecified type Folate deficiency Alcohol abuse Fatty liver, alcoholic Expected: 05/31/2024, Expires: 08/30/2024 [facility] Comment on above: Expected: 05/31/2024, Expires: Start: 05-31-2024 End: 08-30-2024 Cobalamin (Vitamin B12) [Mass/volume] in Serum or Plasma VITAMIN B12 Lab Routine Anemia, unspecified type Folate deficiency Alcohol abuse Fatty liver, alcoholic Expected: 05/31/2024, Expires: 08/30/2024 [facility] Comment on above: Expected: 05/31/2024, Expires: Start: 05-31-2024 End: 08-30-2024 Comprehensive metabolic 2000 panel - Serum or Plasma COMPREHENSIVE METABOLIC PANEL Lab Routine Hypertension, essential Alcohol abuse Fatty liver, alcoholic Expected: 05/31/2024, Expires: 08/30/2024 [facility] Work Phone: Comment on above: Expected: 05/31/2024, Expires: Start: 05-31-2024 End: 08-30-2024 Folate [Mass/volume] in Serum or Plasma FOLATE, SERUM Lab Routine Anemia, unspecified type Folate deficiency Alcohol abuse Fatty liver, alcoholic Expected: 05/31/2024, Expires: 08/30/2024 [facility] Comment on above: Expected: 05/31/2024, Expires: Start: 05-31-2024 Medicare Advantage Annual Wellness Visit Medicare Advantage Annual Wellness Visit [facility] Start: 05-31-2024 End: 08-30-2024 Urinalysis complete panel - Urine URINALYSIS, WITH MICROSCOPIC Lab Routine Hypertension, essential Alcohol abuse Fatty liver, alcoholic Expected: 05/31/2024, Expires: 08/30/2024 [facility] Comment on above: Expected: 05/31/2024, Expires: Start: 05-31-2024 End: 08-30-2024 VITAMIN B1 (THIAMINE), WHOLE BLOOD VITAMIN B1 (THIAMINE), WHOLE BLOOD Lab Routine Alcohol abuse Expected: 05/31/2024, Expires: 08/30/2024 [facility] Comment on above: Expected: 05/31/2024, Expires: Start: 04-07-2024 End: 07-07-2024 Prostate Specific Ag Free [Mass/volume] in Serum or Plasma PROSTATE SPECIFIC ANTIGEN, FREE Lab Routine Elevated PSA Expected: 04/07/2024, Expires: 07/07/2024 [facility] Comment on above: Expected: 04/07/2024, Expires: Start: 02-14-2024 End: 05-15-2024 Alkaline phosphatase [Enzymatic activity/volume] in Serum or Plasma ALKALINE PHOSPHATASE Lab Routine Alkaline phosphatase elevation Expected: 02/14/2024, Expires: 05/15/2024 [facility] Work Phone: Comment on above: Expected: 02/14/2024, Expires: Start: 02-14-2024 End: 05-15-2024 Mitochondria Ab [Presence] in Serum by Immunofluorescence MITOCHONDRIAL M2 IGG SERUM Lab Routine Alkaline phosphatase elevation Expected: 02/14/2024, Expires: 05/15/2024 [facility] Comment on above: Expected: 02/14/2024, Expires: Start: 01-30-2024 Covid-19 Vaccine () Covid-19 Vaccine () [facility] Start: 01-30-2024 Covid-19 Vaccine () Covid-19 Vaccine () [facility] Start: 01-30-2024 End: 04-30-2024 Prostate Specific Ag Free [Mass/volume] in Serum or Plasma PROSTATE SPECIFIC ANTIGEN, FREE Lab Routine Elevated PSA Expected: 01/30/2024, Expires: 04/30/2024 [facility] Work Phone: Comment on above: Expected: 01/30/2024, Expires: Start: 12-30-2023 End: 03-30-2024 ALK PHOS ISOENZYM BL ALK PHOS ISOENZYM BL Lab Routine Alkaline phosphatase elevation Expected: 12/30/2023, Expires: 03/30/2024 [facility] Comment on above: Expected: 12/30/2023, Expires: Start: 12-30-2023 End: 03-30-2024 Gamma glutamyl transferase [Enzymatic activity/volume] in Serum or Plasma GGT Lab Routine Alkaline phosphatase elevation Expected: 12/30/2023, Expires: 03/30/2024 [facility] Comment on above: Expected: 12/30/2023, Expires: Start: 12-27-2023 End: 03-27-2024 VITAMIN B1 (THIAMINE), WHOLE BLOOD [facility] Work Phone: Comment on above: Expected: 12/27/2023, Expires: Start: 12-27-2023 End: 12-27-2023 Patient encounter procedure 12/27/2023 9:40 AM EDT Office Visit [facility] [address] [place] [address] Erum Castaneda PA-C [address] [place] [address] wellness [facility] Comment on above: wellness Start: 12-17-2023 ANNUAL PCP TEAM CHRONIC DISEASE VISIT ANNUAL PCP TEAM CHRONIC DISEASE VISIT [facility] Start: 12-17-2023 COVID-19 VACCINE (#1) COVID-19 VACCINE (#1) [facility] Comment on above: Postponed from 04/30/1956 (Declined at t his time) Start: 07-17-2023 BP CONTROLLED (<130/80) BP CONTROLLED (<130/80) [facility] Start: 07-16-2023 ANNUAL PCP TEAM CHRONIC DISEASE VISIT ANNUAL PCP TEAM CHRONIC DISEASE VISIT [facility] Start: 07-16-2023 BP CONTROLLED (<130/80) BP CONTROLLED (<130/80) [facility] Start: 07-15-2023 BP CONTROLLED (<130/80) BP CONTROLLED (<130/80) [facility] Start: 06-08-2023 ANNUAL PCP TEAM CHRONIC DISEASE VISIT ANNUAL PCP TEAM CHRONIC DISEASE VISIT [facility] Start: 05-31-2023 Advance Directive Discussion Advance Directive Discussion [facility] Start: 05-31-2023 Behavioral Health Screening Behavioral Health Screening [facility] Start: 05-31-2023 Depression Assessment Depression Assessment [facility] Start: 03-25-2023 End: 05-25-2023 Folate [Mass/volume] in Serum or Plasma FOLATE SERUM Lab Routine Folate deficiency Alcohol abuse Expected: 03/25/2023, Expires: 05/25/2023 [facility] Work Phone: Comment on above: Expected: 03/25/2023, Expires: 3 Start: 03-25-2023 End: 05-25-2023 VITAMIN B1 (THIAMINE), WHOLE BLOOD VITAMIN B1 (THIAMINE), WHOLE BLOOD Lab Routine Folate deficiency Alcohol abuse Expected: 03/25/2023, Expires: 05/25/2023 [facility] Work Phone: Comment on above: Expected: 03/25/2023, Expires: 3 Start: 01-29-2023 Covid-19 Vaccine () Covid-19 Vaccine () [facility] Start: 11-19-2022 Adult depression screening assessment DEPRESSION SCREENING [facility] Start: 11-19-2022 ANNUAL PCP TEAM CHRONIC DISEASE VISIT ANNUAL PCP TEAM CHRONIC DISEASE VISIT [facility] Start: 11-19-2022 BP CONTROLLED (<130/80) BP CONTROLLED (<130/80) [facility] Start: 11-19-2022 COVID-19 VACCINE (#1) COVID-19 VACCINE (#1) [facility] Comment on above: Postponed from 04/30/1956 (Declined at t his time) Start: 07-30-2022 End: 09-29-2022 Basic metabolic 2000 panel - Serum or Plasma BASIC METABOLIC PNL Lab Routine Renal insufficiency Expected: 07/30/2022, Expires: 09/29/2022 [facility] Work Phone: Comment on above: Expected: 07/30/2022, Expires: 3 Start: 05-31-2022 ADVANCE DIRECTIVE DISCUSSION ADVANCE DIRECTIVE DISCUSSION [facility] Start: 05-31-2022 DEPRESSION ASSESSMENT DEPRESSION ASSESSMENT [facility] Start: 12-03-2021 End: 02-02-2022 Mitochondria Ab [Presence] in Serum by Immunofluorescence MITOCHONDRIAL AB SCR Lab Routine Elevated alkaline phosphatase level Expected: 12/03/2021, Expires: 02/02/2022 [facility] Work Phone: Comment on above: Expected: 12/03/2021, Expires: 2 Start: 12-03-2021 End: 02-02-2022 PROTEIN ELECT RND UR W/INTERP PROTEIN ELECT RND UR W/INTERP Lab Routine Elevated serum protein level Expected: 12/03/2021, Expires: 02/02/2022 [facility] Work Phone: Comment on above: Expected: 12/03/2021, Expires: 2 Start: 12-03-2021 End: 02-02-2022 PROTEIN ELECTROPHORESIS SERUM W/INTERP PROTEIN ELECTROPHORESIS SERUM W/INTERP Lab Routine Elevated serum protein level Expected: 12/03/2021, Expires: 02/02/2022 [facility] Work Phone: Comment on above: Expected: 12/03/2021, Expires: 2 Start: 05-31-2021 DEPRESSION ASSESSMENT DEPRESSION ASSESSMENT [facility] Start: 2013 RSV Vaccine (1 - 1-dose 60+ series) RSV Vaccine (1 - 1-dose 60+ series) [facility] Start: 1998 COLOGUARD (FIT-DNA) COLOGUARD (FIT-DNA) [facility] Start: [address] COLONOGRAPHY [facility] Start: 1998 FECAL OCCULT BLOOD FECAL OCCULT BLOOD [facility] Start: 1998 Screening for malignant neoplasm of colon [facility] Start: 1998 SIGMOIDOSCOPY SIGMOIDOSCOPY [facility] Start: 10-30-1971 BP CONTROLLED (<130/80) BP CONTROLLED (<130/80) [facility] End: 09-17-2023 Ct cervical spine w/o contrast material CT CERVICAL SPINE WO IVCON Radiology Routine Closed displaced fracture of seventh cervical vertebra with routine healing, unspecified fracture morphology, subsequent encounter Spinal stenosis in cervical region 1 Occurrences starting 08/18/2022 until 09/17/2023 [facility] Work Phone: Comment on above: 1 Occurrences starting 08/18/2022 until 09/17/2023 End: 10-12-2022 Ct cervical spine w/o contrast material [facility] Work Phone: Comment on above: 1 Occurrences starting 10/12/2022 until 10/12/2022 End: 09-17-2023 Ct thoracic spine w/o contrast material CT THORACIC SPINE WO IVCON Radiology Routine Closed fracture of first thoracic vertebra with routine healing, unspecified fracture morphology, subsequent encounter 1 Occurrences starting 08/18/2022 until 09/17/2023 [facility] Work Phone: Comment on above: 1 Occurrences starting 08/18/2022 until 09/17/2023 End: 10-12-2022 Ct thoracic spine w/o contrast material [facility] Work Phone: Comment on above: 1 Occurrences starting 10/12/2022 until 10/12/2022 End: 02-08-2026 Echocardiography ECHO Cardiology Routine Alcohol abuse Hypertension, essential Orthostatic hypotension Syncope, unspecified syncope type 1 Occurrences starting 02/08/2025 until 02/08/2026 [facility] Comment on above: 1 Occurrences starting 02/08/2025 until 02/08/2026 Patient Education ED Hyponatremia [facility] Work Phone: End: 08-07-2023 Radex spine cervical 2 or 3 views XR CERV GENERAL 2V AP/LAT Radiology Routine Closed displaced fracture of seventh cervical vertebra with routine healing, unspecified fracture morphology, subsequent encounter 1 Occurrences starting 07/08/2022 until 08/07/2023 [facility] Work Phone: Comment on above: 1 Occurrences starting 07/08/2022 until 08/07/2023 End: 08-16-2023 Radex spine cervical 2 or 3 views XR CERV GENERAL 2V AP/LAT Radiology Routine Closed fracture of spinous process of cervical vertebra, subsequent encounter 1 Occurrences starting 07/17/2022 until 08/16/2023 [facility] Work Phone: Comment on above: 1 Occurrences starting 07/17/2022 until 08/16/2023 End: 07-17-2022 Radex spine cervical 2 or 3 views [facility] Work Phone: Comment on above: 1 Occurrences starting 07/17/2022 until 07/17/2022 End: 08-18-2022 Radex spine cervical 2 or 3 views [facility] Work Phone: Comment on above: 1 Occurrences starting 08/18/2022 until 08/18/2022 End: 11-11-2023 Radex spine cervical 4 or 5 views XR CERV OTHER 4V AP/LAT/FLX/EXT Radiology Routine Spinal stenosis in cervical region 1 Occurrences starting 10/12/2022 until 11/11/2023 [facility] Work Phone: Comment on above: 1 Occurrences starting 10/12/2022 until 11/11/2023 End: 10-12-2022 Radex spine cervical 4 or 5 views [facility] Work Phone: Comment on above: 1 Occurrences starting 10/12/2022 until 10/12/2022 End: 05-02-2024 Radex spine lumbosacral 2/3 views XR LUMBAR LIMITED 2V AP/LAT Radiology STAT Acute bilateral low back pain without sciatica 1 Occurrences starting 04/03/2023 until 05/02/2024 [facility] Work Phone: Comment on above: 1 Occurrences starting 04/03/2023 until 05/02/2024 End: 08-07-2023 Radex spine thoracic 2 views XR THORACIC LIMITED 2V AP/LAT Radiology Routine Compression fracture of T1 vertebra, sequela 1 Occurrences starting 07/08/2022 until 08/07/2023 [facility] Work Phone: Comment on above: 1 Occurrences starting 07/08/2022 until 08/07/2023 End: 08-16-2023 Radex spine thoracic 2 views XR THORACIC LIMITED 2V AP/LAT Radiology Routine Closed fracture of first thoracic vertebra with routine healing, unspecified fracture morphology, subsequent encounter 1 Occurrences starting 07/17/2022 until 08/16/2023 [facility] Work Phone: Comment on above: 1 Occurrences starting 07/17/2022 until 08/16/2023 End: 07-17-2022 Radex spine thoracic 2 views [facility] Work Phone: Comment on above: 1 Occurrences starting 07/17/2022 until 07/17/2022 End: 08-18-2022 Radex spine thoracic 2 views [facility] Work Phone: Comment on above: 1 Occurrences starting 08/18/2022 until 08/18/2022 End: 05-02-2024 Radex spine thoracic 2 views XR THORACIC LIMITED 2V AP/LAT Radiology STAT Acute bilateral low back pain without sciatica 1 Occurrences starting 04/03/2023 until 05/02/2024 [facility] Work Phone: Comment on above: 1 Occurrences starting 04/03/2023 until 05/02/2024 End: 02-04-2025 US Abdomen RUQ US ABD RIGHT UPPER QUADRANT Radiology Routine Alkaline phosphatase elevation 1 Occurrences starting 01/06/2024 until 02/04/2025 [facility] Work Phone: Comment on above: 1 Occurrences starting 01/06/2024 until 02/04/2025 End: 02-08-2026 US Carotid arteries - bilateral US CAROTID ARTERIES [facility] Vascular Lab Routine Orthostatic hypotension Orthostatic lightheadedness 1 Occurrences starting 02/08/2025 until 02/08/2026 [facility] Comment on above: 1 Occurrences starting 02/08/2025 until 02/08/2026 End: 02-17-2026 XR Ribs - right Views and Chest PA XR RIBS/CHEST 3V AP RIB/OBLS/CXR RIGHT Radiology Routine Fall, initial encounter Rib pain 1 Occurrences starting 01/18/2025 until 02/17/2026 [facility] Work Phone: Comment on above: 1 Occurrences starting 01/18/2025 until 02/17/2026 XR Ribs - right View s and Chest PA XR RIBS/CHEST 3V AP RIB/OBLS/CXR RIGHT Radiology Routine Fall, initial encounter Rib pain 01/18/2025 11:13 AM EDT [facility] Immunizations Immunization Date Immunization Notes Care Provider Evie marquez 11-04-2013 tetanus and diphther ia toxoids, adsorbed, preservative free, for adult use (2 Lf of tetanus toxoid and 2 Lf of diphtheria toxoid) Leah Blair APRN.CNP Work Phone: [facility] Payers Date Payer Category Payer Self-pay 2023 Private Health Insurance [facility] HMO [id number] 2023 Unknown [id number] 2022 Medicare [id number] 2022 Medicaid [id number] 2018 Unknown ANTHEM BLUE CROS S AND BLUE SHIELD ANTHEM MEDIBLUE HMO [id number] 2018-Present [phone] [address] [place] [address] O [id number] 2018 Unknown [id number] 2018 Unknown [id number] 2018 Medicaid MEDICAID [facility] MEDICAID [id number] 2018-Present [phone] [address] [place] [address] Medicaid [id number] 2018 Medicaid [id number] Medicare [id number] Unknown [id number] Social History Date Type Detail Facility Start: 02-04-2018 End: 06-08-2022 Tobacco smoking status NHIS Ex-smoker [facility] Work Phone: Start: 02-04-2018 End: 06-08-2022 Tobacco use and exposure Smokeless tobacco non-user [facility] Work Phone: Start: 11-19-2021 End: 02-08-2025 Alcohol intake Current drinker of alcohol (finding) [facility] Start: 11-19-2021 End: 10-12-2022 Alcohol intake [facility] Work Phone: Start: 11-11-2020 History SDOH Alcohol Comment 6-12 pack a day [facility] Start: 02-04-2018 End: 06-08-2022 Tobacco Comment quit when he was 19 [facility] Start: 1955 Sex Assigned At Not on file [facility] Start: 11-09-2021 End: 11-19-2021 Exposure to SARS-CoV-2 (event) Not sure [facility] History of tobacco use Current smoker [facility] Work Phone: Start: 07-07-2022 History SDOH Financial 5 [facility] Start: 07-07-2022 History SDOH Food Worry 1 [facility] Start: 07-07-2022 History SDOH Transpo rt Med 2 [facility] Start: 10-12-2022 End: 12-16-2022 Tobacco use panel [facility] Work Phone: Start: 05-01-2012 How hard is it for y ou to pay for the very basics like food, housing, medical care, and heating Not hard at all [facility] Work Phone: (I/We) worried reyna er (my/our) food would run out before (I/we) got money to buy more. Never true [facility] Work Phone: In the past 12 month s, was there a time when you were not able to pay the mortgage or rent on time? No [facility] Work Phone: Start: 12-16-2022 Alcohol Comment [address] [facility] Start: 1955 Sex Assigned At Male W [facility] How often to you hav e a drink containing alcohol? 4 or more times a week [facility] How many standard drinks containing alcohol do you have on a typical day? 3 or 4 [facility] How often do you hav e 6 or more drinks on 1 occasion? Weekly [facility] Functional Status Date Assessment Result Facility 02-08-2025 Total score [AUDIT-C] 8 02/09/20 11:31 AM EDT Zackary Hernandez [facility] 07-08-2022 Are you deaf, or do you have serious difficulty hearing No 07/08/2022 4:51 PM Letty Phoenix, MAGDALENA No [facility] 07-08-2022 Are you blind, or do you have serious difficulty seeing, even when wearing glasses No 07/08/2022 4:51 PM Letty Phoenix RN No [facility] 07-08-2022 Do you have serious difficulty walking or climbing stairs No 07/08/2022 4:51 PM Letty Phoenix, RN No [facility] 07-08-2022 Do you have difficul ty dressing or bathing No 07/08/2022 4:51 PM Letty Phoenix, RN No [facility] 07-08-2022 Because of a physica l, mental, or emotional condition, do you have difficulty doing errands alone such as visiting a physician's office or shopping Yes 07/08/2022 4:51 PM Letty Phoenix, RN Yes [facility] Mental Status Date Assessment Result Facility 01-20-2025 Cognitive function Level Of Cons ciousness Awake;Alert;Appropriate;Fol lows Commands [facility] Work Phone: 07-08-2022 Because of a physica l, mental, or emotional condition, do you have serious difficulty concentrating, remembering, or making decisions No 07/08/2022 4:51 PM Letty Phoenix, RN No [facility] Clinical Notes 04-25-2018 to 02-12-2025 Telephone Encounter - Erum Castaneda PA-C - 02/12/2025 12:50 PM EDTTelephone Encounter - Erum Castaneda PA-C - 02/12/2025 12:50 PM EDTRErum hayden PA-C - 02/08/2025 11:50 AM EDT Note Date & Type Note Facility 02-12-2025 Telephone encounter Note Noted. [facility] 02-12-2025 Miscellaneous Notes Noted. Pt notified of results and instructions. Pt verbalizes understanding. Advises that he is not sure how he is going to increase sodium much more. Advises that he does salt everything. Advised him he could try adding pretzels or potato chips. Pt has not heard from Dr Garvin's office yet. Pt advises that he lost their phone number d/t daughter was cleaning his house and he thinks she accidentally threw it out. Pt provided their phone number again and was encouraged to give them a call to schedule appointment. Steve Ochoa LPN Let patient know that his sodium levels are lower. Needs to increase his sodium and decrease his alcohol more. Does he have visit scheduled with nephrology yet? Erum Castaneda PA-C documented in this encounter [facility] 02-12-2025 Telephone encounter Note Pt notified of results and instructions. Pt verbalizes understanding. Advises that he is not sure how he is going to increase sodium much more. Advises that he does salt everything. Advised him he could try adding pretzels or potato chips. Pt has not heard from Dr Garvin's office yet. Pt advises that he lost their phone number d/t daughter was cleaning his house and he thinks she accidentally threw it out. Pt provided their phone number again and was encouraged to give them a call to schedule appointment. Steve Ochoa LPN [facility] 02-12-2025 Telephone encounter Note Let patient know that his sodium levels are lower. Needs to increase his sodium and decrease his alcohol more. Does he have visit scheduled with nephrology yet? Erum Castaneda PA-C [facility] 02-08-2025 Note HNO ID: [id number] Author: ERUM CASTANEDA PA-C Service: ? Author Type: Physician Asphalt Spreader Operator Type: Progress Notes Filed: 02/08/2025 12:24 Note Text: Chief Complaint Patient presents with: Follow Up: Blood pressure HPI Yaritza Henderson is a 69 year old male who presents here today for recheck. Orthostatic Hypotension: - Yaritza Henderson reports improvement in lightheadedness with standing since the last visit. - Frequency of episodes has decreased; no recent falls. - Drinking 3-6 beers daily (12 oz cans), 1 Gatorade daily, and 3 cups of coffee every morning. - Denies drinking water, tea, or other fluids. - Previously seen by Dr. Villa, a relay checker, in November of last year; Yaritza has not followed up since. Past medical history, appointments, medications, allergies reviewed. [...] (EXEP) 06/21/2020 EF=60%, mild menchaca dysf, 1+ [place] COLONOSCOPY 01/09/2019 Dr. Gonzalez, repeat 10 yrs [...] Thyroid No Family History Patient Allergies ALLERGIES Not on File Current Medications Current Outpatient Medications on File Prior to Visit Medication Sig lisinopril (ZESTRIL) 20 mg tablet Take 1 tablet by mouth [...] for pain. (Patient not taking: Reported on 02/08/2025) No current facility-administered medications on file prior to visit. Social History SOCIAL HISTORY[1] Review of Symptoms REVIEW OF SYSTEMS Neurological: (+) lightheadedness, (-) falls SEE HPI EXAM: BP 122/81 (BP Site: Left Arm, BP Position: Sitting, BP Cuff Size: Regular Adult) Pulse 73 Temp 36.4 ?C (97.6 ?F) Resp 16 Wt 73.5 kg (162 lb) SpO2 98% BMI 23.46 kg/m? General Appearance: Well appearing, alert, in [...] Discussion due on 05/31/2024 Medicare Advantage Annual Welln (more content not included)... [facility] 02-08-2025 History of Presen t illness Narrative Chief Complaint Patient presents with: Follow Up: Blood pressure HPI Yaritza Henderson is a 69 year old male who presents here today for recheck. Orthostatic Hypotension: - Yaritza Henderson reports improvement in lightheadedness with standing since the last visit. - Frequency of episodes has decreased; no recent falls. - Drinking 3-6 beers daily (12 oz cans), 1 Gatorade daily, and 3 cups of coffee every morning. - Denies drinking water, tea, or other fluids. - Previously seen by Dr. Villa, a relay checker, in November of last year; Yaritza has not followed up since. Past medical history, appointments, medications, allergies reviewed. [...] (EXEP) 06/21/2020 EF=60%, mild menchaca dysf, 1+ [place] COLONOSCOPY 01/09/2019 Dr. Gonzalez, repeat 10 yrs [...] Thyroid No Family History Patient Allergies ALLERGIES Not on File Current Medications Current Outpatient Medications on File Prior to Visit Medication Sig lisinopril (ZESTRIL) 20 mg tablet Take 1 tablet by mouth [...] for pain. (Patient not taking: Reported on 02/08/2025) No current facility-administered medications on file prior to visit. Social History SOCIAL HISTORY[1] Review of Symptoms REVIEW OF SYSTEMS Neurological: (+) lightheadedness, (-) falls SEE HPI EXAM: BP 122/81 (BP Site: Left Arm, BP Position: Sitting, BP Cuff Size: Regular Adult) Pulse 73 Temp 36.4 C (97.6 F) Resp 16 Wt 73.5 kg (162 lb) SpO2 98% BMI 23.46 kg/m General Appearance: Well appearing, alert, in [...] PCP Team Chronic Disease Visit due on 01/23/2026 Diabetes Screening due on 01/24/2028 DTaP,Tdap,Td Vaccine(2 - Td or Tdap) due on 02/05/2028 RSV Vaccine(1 - 1-dose 75+ series) due on 2028 Colorectal Cancer Screening due on 01/09/2029 Lipid Screening due on 01/18/2030 Abdominal Aortic Aneurysm Screening Completed Hepatitis C Screening Completed Influenza Vaccine Discontinued Shingrix Vaccine Discontinued Pneumococcal Vaccine: 50+ Discontinued Data reviewed 02/08/25 1118 02/08/25 1144 02/08/25 1145 02/08/25 1146 BP: 122/81 Pulse: 73 Temp: 36.4 C (97.6 F) Resp: 16 SpO2: 98% Weight: 73.5 kg (162 lb) Orthostatic BP: 146/91 107/75 114/79 BP Position: Sitting Supine Standing Standing Orthostatic Pulse: 68 81 79 Assessment and Plan 1. Orthostatic hypotension (I95.1) 2. Hyponatremia (E87.1) 3. Hypertension, essential (I10) 4. Syncope, unspecified syncope type (R55) 5. Orthostatic lightheadedness (R42) - Orthostatic symptoms improving but still present; no recent falls. - Othostatic vitals today positive for BP drop when standing. - Blood pressure readings show higher diastolic values with good systolic control; higher BP when supine. - No medication changes at this time. - Order echocardiogram to assess cardiac chambers and valves. - Order carotid ultrasound. - Order repeat labs to assess sodium levels and WBC count. - Will review test results and discuss with Dr. Feliciano; may refer to cardiology for further management if indicated. - Follow-up after completion of testing; will adjust follow-up timing if tests are delayed. 6. Alcohol abuse (F10.10) 7. Fatty liver, alcoholic (K70.0) - Patient consumes 3-6 beers daily. 8. JERRY (acute kidney injury) (N17.9) - Refer back to nephrology (Dr. Garvin) for further evaluation and management of sodium balance. - Provided contact information for nephrology follow-up. Erum Castaneda PA-C Recording using [employer] software for draft documentation of the visit was discussed with the patient/authorized commercial representative; all questions welcomed and answered. Patient/authorized commercial representative agreed to proceed [1] Social History Tobacco Use Smoking status: Former Smokeless tobacco: Never Tobacco comments: quit when he was 19 Vaping Use Vaping status: Never Used Substance Use Topics Alcohol use: Yes Alcohol/week: 12.0 - 28.0 standard drinks of alcohol Types: 12 - 28 Standard drinks or equivalent per week Comment: 6 beers a day Drug use: No documented in this encounter [facility] 01-25-2025 Telephone encounter Note Noted. [facility] 01-25-2025 Miscellaneous Notes Noted. Spoke with patient at this time and advised of below results. States that he is having mediocre pain; nothing that is really bothersome. Is using Tylenol when needed for any discomfort. Vanessa Aquino LPN Let patient know that his xray does show a fracture of the 10th rib on right side. How's his pain currently. Erum Castaneda PA-C documented in this encounter [facility] 01-25-2025 Telephone encounter Note Spoke with patient at this time and advised of below results. States that he is having mediocre pain; nothing that is really bothersome. Is using Tylenol when needed for any discomfort. Vanessa Aquino LPN [facility] 01-25-2025 Telephone encounter Note Let patient know that his xray does show a fracture of the 10th rib on right side. How's his pain currently. Erum Castaneda PA-C [facility] 01-24-2025 Progress note Formatting of t his note might be different from the original. Patient notified of results, verbalizes understanding of instructions. Vanessa Aquino LPN [facility] 01-24-2025 Miscellaneous Notes Patient notified of results, verbalizes understanding of instructions. Vanessa Kenia, SCRAP DROP CRANE OPERATOR Let patient know that his labs show low but stable sodium levels. Kidney function has improved. His glucose is a little low too. Make sure to be eating balanced meals throughout the day and we will discuss more at the follow up Erum Castaneda PA-C documented in this encounter [facility] 01-24-2025 Telephone encounter Note Let patient know that his labs show low but stable sodium levels. Kidney function has improved. His glucose is a little low too. Make sure to be eating balanced meals throughout the day and we will discuss more at the follow up Erum Castaneda PA-C [facility] 01-23-2025 Instructions Erum Castaneda PA-C - 01/23/2025 1:13 PM EDT - Do not take amlodipine until further notice. - Take lisinopril 20 mg once daily; check your pill bottle for 20 mg tablets and split any 40 mg tablets in half until your new prescription arrives. - Increase your fluid intake and include electrolyte drinks (for example, Gatorade or Pedialyte) to help raise your sodium level. - Have blood drawn today - Measure and record your blood pressure every day; bring your readings to the appointment. - Keep your follow-up appointment on the ; we will call you when your X-ray and lab results are available. - Call the office sooner if you develop new or worsening lightheadedness, dizziness, or any other concerns before your next visit. documented in this encounter [facility] 01-23-2025 Note HNO ID: [id number] Author: ERUM CASTANEDA PA-C Service: ? Author Type: Physician Asphalt Spreader Operator Type: Progress Notes Filed: 01/23/2025 13:43 Note Text: Chief Complaint Patient presents with: ER F/U HPI Yaritza Henderson is a 69 year old male who presents here today for ER Follow Up.. Lightheadedness: - Yaritza Henderson has had persistent lightheadedness for 1-2 months. - No improvement since medication adjustments 4 days ago. - Denies feeling like he is going to pass out. Hyponatremia: - Yaritza's sodium level was 128 on 01/18. - Yaritza's sodium level was 127 in the ER on 01/20. - Drinking Gatorade to help with sodium levels. Falls: - Yaritza reports a couple of falls, with at least one fall on 01/14. - Rib pain following the fall on 01/14; awaiting x-ray results. ER Visit: - Yaritza presented to the ER on 01/20. - Received IV saline fluids and was discharged home. - Blood pressure in the ER was 134/86 mmHg. - per documentation, patient denied weakness or confusion in the ER. - Creatinine returned to baseline, and GFR improved to 70. Hypertension: - Yaritza's home blood pressure reading yesterday was 124/94 mmHg. - Currently taking amlodipine 5 mg and lisinopril 40 mg (half tablet). Past medical history, appointments, medications, allergies reviewed. [...] (EXEP) 06/21/2020 EF=60%, mild menchaca dysf, 1+ [place] COLONOSCOPY 01/09/2019 Dr. Gonzalez, repeat 10 yrs [...] Thyroid No Family History Patient Allergies ALLERGIES Not on File Current Medications Current Outpatient Medications on File Prior to Visit Medication Sig amLODIPine (NORVASC) 5 mg tablet Take 1 tablet by mouth once daily. lisinopril (ZESTRIL) 40 mg tablet Take 0.5 tablets by mouth once daily. cyanocobalamin (VITAMIN B-12) [...] HISTORY[1] Review of Symptoms REVIEW OF SYSTEMS Musculoskeletal: (+) wrist pain Neurological: (+) lightheadedness, (-) presyncope SEE HPI EXAM: BP 104/69 Pulse 80 Resp 14 Wt 74.8 kg (165 lb) SpO2 95% BMI 23.89 kg/m? General Appearance: Well appearing, alert, in no acute distress, well-hydrate (more content not included)... [facility] 01-23-2025 History of Presen t illness Narrative Chief Complaint Patient presents with: ER F/U HPI Yaritza Henderson is a 69 year old male who presents here today for ER Follow Up.. Lightheadedness: - Yaritza Henderson has had persistent lightheadedness for 1-2 months. - No improvement since medication adjustments 4 days ago. - Denies feeling like he is going to pass out. Hyponatremia: - Yaritza's sodium level was 128 on 01/18. - Yaritza's sodium level was 127 in the ER on 01/20. - Drinking Gatorade to help with sodium levels. Falls: - Yaritza reports a couple of falls, with at least one fall on 01/14. - Rib pain following the fall on 01/14; awaiting x-ray results. ER Visit: - Yaritza presented to the ER on 01/20. - Received IV saline fluids and was discharged home. - Blood pressure in the ER was 134/86 mmHg. - per documentation, patient denied weakness or confusion in the ER. - Creatinine returned to baseline, and GFR improved to 70. Hypertension: - Yaritza's home blood pressure reading yesterday was 124/94 mmHg. - Currently taking amlodipine 5 mg and lisinopril 40 mg (half tablet). Past medical history, appointments, medications, allergies reviewed. [...] (EXEP) 06/21/2020 EF=60%, mild menchaca dysf, 1+ [place] COLONOSCOPY 01/09/2019 Dr. Gonzalez, repeat 10 yrs [...] Thyroid No Family History Patient Allergies ALLERGIES Not on File Current Medications Current Outpatient Medications on File Prior to Visit Medication Sig amLODIPine (NORVASC) 5 mg tablet Take 1 tablet by mouth once daily. lisinopril (ZESTRIL) 40 mg tablet Take 0.5 tablets by mouth once daily. cyanocobalamin (VITAMIN B-12) [...] HISTORY[1] Review of Symptoms REVIEW OF SYSTEMS Musculoskeletal: (+) wrist pain Neurological: (+) lightheadedness, (-) presyncope SEE HPI EXAM: BP 104/69 Pulse 80 Resp 14 Wt 74.8 kg (165 lb) SpO2 95% BMI 23.89 kg/m General Appearance: Well appearing, alert, in no acute distress, well-hydrated, well nourished.. Lungs: Lungs clear to auscultation. No wheezing, rhonchi, rales.. Heart: RRR without murmur, gallop, or rubs. No ectopy. Health Maintenance List Advance Directive Discussion due on 05/31/2024 Medicare Advantage Annual Wellness Visit due on 05/31/2024 Depression Screening due on 12/26/2024 Anxiety Screening due on 12/26/2024 Annual PCP Team Chronic Disease Visit due on 01/18/2026 Diabetes Screening due on 01/19/2028 DTaP,Tdap,Td Vaccine(2 - Td or Tdap) due on 02/05/2028 RSV Vaccine(1 - 1-dose 75+ series) due on 2028 Colorectal Cancer Screening due on 01/09/2029 Lipid Screening due on 01/18/2030 Abdominal Aortic Aneurysm Screening Completed Hepatitis C Screening Completed Influenza Vaccine Discontinued Shingrix Vaccine Discontinued Pneumococcal Vaccine: 50+ Discontinued Data reviewed See hpi Latest Ref Rng 01/18/2025 Protein, Total 6.3 - 8.0 g/dL 7.5 Albumin 3.9 - 4.9 g/dL 3.8 (L) Calcium 8.5 - 10.2 mg/dL 9.3 Bilirubin, Total 0.2 - 1.3 mg/dL 1.3 Alkaline Phosphatase 38 - 113 U/L 200 (H) AST 14 - 40 U/L 14 ALT 10 - 54 U/L 6 (L) Glucose 74 - 99 mg/dL 84 BUN 9 - 24 mg/dL 19 Creatinine 0.73 - 1.22 mg/dL 1.35 (H) Sodium 136 - 144 mmol/L 128 (L) Potassium 3.7 - 5.1 mmol/L 4.4 Chloride 98 - 107 mmol/L 91 (L) CO2 22 - 30 mmol/L 20 (L) Anion Gap 8 - 15 mmol/L 17 (H) eGFR >=60 mL/min/1.73m 56 (L) Legend: (L) Low (H) High Assessment and Plan 1. Hypertension, essential (I10) 2. Orthostatic hypotension (I95.1) - Recent episodes of orthostatic hypotension with low BP (83/56 mmHg in office) and positive orthostatic vitals; home BP readings now in 120s-130s systolic. - Decreased amlodipine from 10 mg to 5 mg and lisinopril from 40 mg to 20 mg after initial hypotensive episode; patient was still taking 40 mg lisinopril due to prescription error. - Hold amlodipine; corrected lisinopril prescription to 20 mg tablet. - Advised patient to verify lisinopril dose at home and ensure correct dosing. - Continue daily home BP monitoring; patient instructed to record readings. - Follow-up on February 08. 3. Hyponatremia (E87.1) 4. JERRY (acute kidney injury) (N17.9) - Recent labs showed sodium 128 mmol/L, chloride 91 mmol/L, anion gap 17, creatinine 1.35 mg/dL, GFR 56 mL/min (baseline in 70s). - Sent to ER for IV fluids and sodium replacement; sodium improved to 127 mmol/L, GFR returned to baseline in 70s. - Advised to increase oral fluid and electrolyte intake (e.g., Gatorade, Pedialyte). - Order repeat labs to monitor sodium and renal function. Erum Castaneda PA-C Recording using [employer] software for draft documentation of the visit was discussed with the patient/authorized commercial representative; all questions welcomed and answered. Patient/authorized commercial representative agreed to proceed [1] Social History [...] Drug use: No documented in this encounter [facility] 01-20-2025 Discharge summary [facility] 01-19-2025 Telephone encounter Note Patient notified of below recommendation. Highly recommended that he proceed to ER. He states that he will work on finding a ride to take him to [facility]. Vanessa Aquino LPN [facility] 01-19-2025 Miscellaneous Notes Patient notified of below recommendation. Highly recommended that he proceed to ER. He states that he will work on finding a ride to take him to [facility]. Vanessa Aquino LPN Noted. Let patient know that I do feel like he needs to go to ER. With his symptoms yesterday and these lab results, I'm worried about acute kidney injury. He also has signs of possible viral infection. If he can get to [facility], that would be part of the clinic. Otherwise [place] and we can send the labs for i. Erum Castaneda PA-C Spoke with patient at this time and notified of below. States that he feels about the same as yesterday with maybe a slight improvement. He reports that alcohol intake has been very limited given how he has been feeling. Vanessa Aquino LPN ----- Message from Erum Castaneda PA-C sent at 01/19/2025 10:30 AM EDT ----- ----- Message ----- From: Dionte, Background User Sent: 01/18/2025 6:28 PM EDT [...] Erum Castaneda PA-C documented in this encounter [facility] 01-19-2025 Telephone encounter Note Noted. Let patient know that I do feel like he needs to go to ER. With his symptoms yesterday and these lab results, I'm worried about acute kidney injury. He also has signs of possible viral infection. If he can get to [facility], that would be part of the clinic. Otherwise [facility] and we can send the labs for fyi. Erum Castaneda PA-C [facility] 01-19-2025 Telephone encounter Note Spoke with patient at this time and notified of below. States that he feels about the same as yesterday with maybe a slight improvement. He reports that alcohol intake has been very limited given how he has been feeling. Vanessa Aquino LPN [facility] 01-19-2025 Telephone encounter Note ----- Message from Erum Castaneda PA-C sent at 01/19/2025 10:30 AM EDT ----- ----- Message ----- From: Dionte, Background User Sent: 01/18/2025 6:28 PM EDT To: Erum Castaneda PA-C [facility] 01-19-2025 Telephone encounter Note Let patient know [...] today compared to yesterday. Erum Castaneda PA-C [facility] 01-18-2025 History of Presen t [...] PATIENT PRESENTS WITH AN IMPLANTABLE OR ATTACHED SPECIAL PROCEDURES NURSE: No RADIOLOGY DEPARTMENT: General X-ray: Exam(s) Completed: Rib X-Ray: Right PERIPHERAL IV DATA: Not applicable SIGNED BY: RT Natalie(Shyam) January 18, 2025 11:05 AM documented in this encounter [facility] 01-18-2025 Note HNO ID: [id number] Author: MAUREEN TAYLOR RT(R) Service: ? Author [...] PATIENT PRESENTS WITH AN IMPLANTABLE OR ATTACHED SPECIAL PROCEDURES NURSE: No RADIOLOGY DEPARTMENT: General X-ray: Exam(s) Completed: Rib X-Ray: Right PERIPHERAL IV DATA: Not applicable SIGNED BY: Maureen Taylor, RT(R) January 18, 2025 11:05 AM [facility] 01-18-2025 Instructions Erum Castaneda PA-C - 01/18/2025 10:17 AM EDT - Reduce your amlodipine from 10 mg to 5 mg once daily; a new prescription has been sent to [facility]. - Reduce your lisinopril from 40 mg to 20 mg once daily; a new prescription has been sent to [facility]. - Monitor your blood pressure at home [...] Medicare wellness exam. documented in this encounter [facility] 01-18-2025 Note HNO ID: [id number] Author: ERUM CASTANEDA PA-C Service: ? Author Type: Physician Asphalt Spreader Operator Type: Progress Notes Filed: 01/18/2025 10:45 Note [...] (EXEP) 06/21/2020 EF=60%, mild menchaca dysf, 1+ [place] COLONOSCOPY 01/09/2019 Dr. Gonzalez, repeat 10 yrs [...] BP 83/56 ( (more content not included)... [facility] 01-18-2025 History of Presen t illness Narrative [...] (EXEP) 06/21/2020 EF=60%, mild menchaca dysf, 1+ [place] COLONOSCOPY 01/09/2019 Dr. Gonzalez, repeat 10 yrs [...] await labs Erum Castaneda PA-C Recording using [employer] software for draft documentation of the visit was discussed with the patient/authorized commercial representative; all questions welcomed and answered. Patient/authorized commercial representative agreed to proceed [1] Social History [...] Drug use: No documented in this encounter [facility] 11-06-2024 Telephone encounter Note Patient has been [...] Please advise. Thank you. Jannet Wilder MA. [facility] 11-06-2024 Miscellaneous Notes Patient has been identified [...] Take 1 tablet by mouth once daily. [facility] November 06, 2024 1:14 PM documented in this encounter [facility] 11-06-2024 Telephone encounter Note Prescription Refill Information [...] 1 tablet by mouth once daily. [facility] November 06, 2024 1:14 PM Electronically signed by [facility] at 11/06/2024 1:15 PM EDT [facility] 10-06-2024 Telephone encounter Note The following approved medication requests have been transmitted electronically. Requested Prescriptions Signed Prescriptions Disp Refills cyanocobalamin (VITAMIN B-12) 500 mcg tablet 30 tablet 11 Sig: Take 1 tablet by mouth once daily. Authorizing Provider: FREDRICK FELICIANO thiamine (VITAMIN B1) 50 mg tablet 30 tablet 11 Sig: Take 1 tablet by mouth once daily. Authorizing Provider: FREDRICK FELICIANO MD [facility] 10-06-2024 Miscellaneous Notes The following approved medication requests have been transmitted electronically. Requested Prescriptions Signed Prescriptions Disp Refills cyanocobalamin (VITAMIN B-12) 500 mcg tablet 30 tablet 11 Sig: Take 1 tablet by mouth once daily. Authorizing Provider: FREDRICK FELICIANO thiamine (VITAMIN B1) 50 mg tablet 30 tablet 11 Sig: Take 1 tablet by mouth once daily. Authorizing Provider: FREDRICK FEILCIANO MD Prescription Refill Information The patient has [...] Darby Herrera October 05, 2024 1:10 PM documented in this encounter [facility] 10-06-2024 Telephone encounter Note Prescription Refill Information [...] Ochoa LPN October 06, 2024 7:02 AM T [facility] 10-05-2024 Telephone encounter Note Prescription Refill Information [...] Darby Herrera October 05, 2024 1:10 PM [facility] 07-10-2024 Note HNO ID: [id number] Author: ERUM CASTANEDA PA-C Service: ? Author Type: Physician Asphalt Spreader Operator Type: Progress Notes Filed: 07/10/2024 12:01 Note [...] (EXEP) 06/21/2020 EF=60%, mild menchaca dysf, 1+ [place] COLONOSCOPY 01/09/2019 Dr. Gonzalez, repeat 10 yrs [...] PCP Team Chronic (more content not included)... [facility] 07-10-2024 History of Presen t illness Narrative [...] (EXEP) 06/21/2020 EF=60%, mild menchaca dysf, 1+ [place] COLONOSCOPY 01/09/2019 Dr. Gonzalez, repeat 10 yrs [...] Erum Castaneda PA-C documented in this encounter [facility] 07-06-2024 Telephone encounter Note Katy with [facility] Scheduling called and reports they do not take [employer] insurance. She states he will have to go somewhere else for his liver US and Elastography. Did not know if provider had a place in mind of where she wanted him to go to get it. Please call and advise Pt. [facility] 07-06-2024 Miscellaneous Notes Katy with [facility] Scheduling called and reports they [...] and instructions. Pt verbalizes understanding. Pt aware [facility] will contact him to schedule US if approved by his insurance. Order has been faxed to [facility]. Steve Ochoa LPN Let patient know that his alk phos levels are mostly coming from his liver. I would like to get a specific type of US that checks for fibrosis since the regular US was normal last year.. I will send the order to [facility] to see if they take his insurance. Urine was okay Please give me [facility] US with elastrography order to sign. Thank you! Erum Castaneda PA-C documented in this encounter [facility] 07-06-2024 Telephone encounter Note Pt notified of Erum's message and instructions. Pt verbalizes understanding. Pt aware [facility] will contact him to schedule US if approved by his insurance. Order has been faxed to [facility]. Steve Ochoa LPN [facility] 07-06-2024 Telephone encounter Note Let patient know that his alk phos levels are mostly coming from his liver. I would like to get a specific type of US that checks for fibrosis since the regular US was normal last year.. I will send the order to [facility] to see if they take his insurance. Urine was okay Please give me [facility] US with elastrography order to sign. Thank you! Erum Castaneda PA-C [facility] 06-26-2024 Instructions Erum Castaneda PA-C - 06/26/2024 11:47 AM EST Repeat labs in 1 week. -fasting blood work (10-12 hours). You can have water or black coffee. Decrease lisinopril to just once a day. Recheck in 2-4 weeks documented in this encounter [facility] 06-26-2024 Note HNO ID: [id number] Author: ERUM CASTANEDA PA-C Service: ? Author Type: Physician Asphalt Spreader Operator Type: Progress Notes Filed: 06/26/2024 12:28 Note [...] (EXEP) 06/21/2020 EF=60%, mild menchaca dysf, 1+ [place] COLONOSCOPY 01/09/2019 Dr. Gonzalez, repeat 10 yrs [...] General Appearance: Well (more content not included)... [facility] 06-26-2024 History of Presen t illness Narrative [...] (EXEP) 06/21/2020 EF=60%, mild menchaca dysf, 1+ [place] COLONOSCOPY 01/09/2019 Dr. Gonzalez, repeat 10 yrs [...] 05/31/2024 Covid-19 Vaccine( season) due on 06/26/2025 Annual PCP Team Chronic [...] Abs Lymph 1.00 - 4.00 k/uL 1.72 Horry% % 10.8 Abs Horry <0.87 k/uL 1.06 (H) Eosin% % 2.1 [...] Erum Castaneda PA-C documented in this encounter [facility] 05-02-2024 Telephone encounter Note The following approved [...] a day. Authorizing Provider: FREDRICK FELICIANO MD [facility] 05-02-2024 Miscellaneous Notes The following approved medication [...] 2024 2:58 PM documented in this encounter [facility] 05-02-2024 Telephone encounter Note The patient has [...] Dubois LPN May 02, 2024 2:58 PM [facility] 02-29-2024 Telephone encounter Note Spoke with pt and reviewed Erum's message. Pt verbalizes understanding. Steve Ochoa LPN [facility] 02-29-2024 Miscellaneous Notes Spoke with pt and [...] regarding. Thank you documented in this encounter [facility] 02-29-2024 Telephone encounter Note Remind him of the PSA to do in early march I also placed labs for May's visit. Thanks. respirations [facility] 02-29-2024 Telephone encounter Note Patients next routine follow up is in May. Any labs prior to visit? Nadia Leyva MA [facility] 02-29-2024 Telephone encounter Note Pt called in thinking he needs to have routine lab work. Please advise and call patient regarding. Thank you [facility] 02-07-2024 Telephone encounter Note Pt notified of Erum's message and instructions, pt verbalizes understanding. Steve Ochoa LPN [facility] 02-07-2024 Miscellaneous Notes Pt notified of Erum's [...] Erum Castaneda PA-C documented in this encounter [facility] 02-07-2024 Telephone encounter Note I will send [...] that is fine. Thanks Erum Castaneda PA-C [facility] 02-07-2024 Telephone encounter Note Pt notified of [...] to recheck prostate labs. Steve Ochoa LPN [facility] 02-07-2024 Telephone encounter Note Let patient know that alk phos level is still elevated but mitochondrial antibody is negative. We will continue to monitor. Erum Castaneda PA-C [facility] 01-14-2024 Telephone encounter Note Patient notified of results and provider's instructions. Patient verbalizes understanding. Steve Ochoa LPN [facility] 01-14-2024 Miscellaneous Notes Patient notified of results and provider's instructions. Patient verbalizes understanding. Steve Ochoa LPN US of the liver is okay. Will check fasting labs again in 1 month to trend. Erum Castaneda PA-C documented in this encounter [facility] 01-14-2024 Telephone encounter Note US of the liver is okay. Will check fasting labs again in 1 month to trend. Erum Castaneda PA-C [facility] 01-13-2024 History of Presen t illness Narrative [...] PATIENT PRESENTS WITH AN IMPLANTABLE OR ATTACHED SPECIAL PROCEDURES NURSE: No RADIOLOGY DEPARTMENT: Ultrasound PERIPHERAL IV DATA: Not applicable SIGNED BY: Dottie Machado RDMS January 13, 2024 11:04 AM documented in this encounter [facility] 01-06-2024 Telephone encounter Note Noted. Erum Castaneda PA-C [facility] 01-06-2024 Miscellaneous Notes Noted. Erum Castaneda PA-C Pt notified of results and instructions. Pt would just like to monitor PSA level for now. Will repeat lab as instructed. Pt will call back to schedule US as he has to be somewhere this am and didn't not have time to schedule now. Steve cOhoa LPN Let patient know that PSA %free [...] Erum Castaneda PA-C documented in this encounter [facility] 01-06-2024 Telephone encounter Note Pt notified of results and instructions. Pt would just like to monitor PSA level for now. Will repeat lab as instructed. Pt will call back to schedule US as he has to be somewhere this am and didn't not have time to schedule now. Steve Ochoa LPN [facility] 01-06-2024 Telephone encounter Note Let patient know [...] his alcohol use. Thanks. Erum Castaneda PA-C [facility] 12-30-2023 Telephone encounter Note Patient informed and verbalized understanding. Nadia Leyva MA [facility] 12-30-2023 Miscellaneous Notes Patient informed and verbalized [...] Erum Castaneda PA-C documented in this encounter [facility] 12-30-2023 Telephone encounter Note Let patient know [...] fasting 10-12 hrs. Thanks. Erum Castaneda PA-C [facility] 12-27-2023 Instructions Erum Castaneda PA-C - 12/27/2023 [...] review all the medicines you take, even [id number] medicines. As you get older, the way [...] certain medical conditions. documented in this encounter [facility] 12-27-2023 History of Presen t illness Narrative [...] optometry/ophthalmology Assessment/Plan Medicare annual wellness visit, subsequent (Z00.00) - Counseled on healthy diet and regular [...] (EXEP) 06/21/2020 EF=60%, mild menchaca dysf, 1+ [place] COLONOSCOPY 01/09/2019 Dr. Gonzalez, repeat 10 yrs [...] Erum Castaneda PA-C documented in this encounter [facility] 10-21-2023 Telephone encounter Note Opened in error [facility] 10-21-2023 Miscellaneous Notes Opened in error documented in this encounter [facility] 10-21-2023 Telephone encounter Note Patient has been [...] Please advise. Thank you. Jannet Wilder MA. [facility] 10-21-2023 Miscellaneous Notes Patient has been identified [...] Jannet Wilder MA. documented in this encounter [facility] 07-19-2023 History of Presen t illness Narrative [...] Care Gap or Scheduling/Wellness visits Payer: Payor: [employer] / Plan: [employer] MEDICARE ADVANTAGE HMO / Product Type: HMO / Care Gap Reviewed:: Annual Wellness visit Reminder: Reminder note to check Health Maintenance for items below Health Maintenance items due: RSV Vaccine(1 - 1-dose 60+ series) Never done Advance Directive Discussion due on 05/31/2023 Depression Assessment due on 05/31/2023 Navigation Signature: Maria Teresa Glass Population Health Navigator July 19, 2023 7:29 AM Electronically signed by [facility] NavigatorMaria Teresa at 07/19/2023 11:19 AM EST documented in this encounter [facility] 04-07-2023 History of Presen t illness Narrative [...] 2023 10:40 AM documented in this encounter [facility] 04-03-2023 History of Presen t illness Narrative This note was created using NoteWriter. Subjective Yaritza Henderson is a 67 year old male. 67 year old male with PMH HTN, PVD, anemia, spinal stenosis presents for lower back pain. Acute onset one week ago Lower back Endorses that he was lifting up an AC unit, Desmet a popping sensation. Mid and lower back. Sharp and cramping. Has used Ibuprofen, but no relief. Denies saddle anesthesia, unilateal weakness, inability to urinate or history of IV drug usage. The history is provided by the patient. No second language tutor was used. Back Pain This is a [...] (EXEP) 06/21/2020 EF=60%, mild menchaca dysf, 1+ [place] COLONOSCOPY 01/09/2019 Dr. Gonzalez, repeat 10 yrs [...] Karol Hope APRN.BIRGIT documented in this encounter [facility] 03-16-2023 Miscellaneous Notes Patient notified and verbalized understanding Daisy Salter Cma Please let patient know her labs are normal. documented in this encounter [facility] 01-01-2023 Miscellaneous Notes Patient notified of results and provider's instructions. Patient verbalizes understanding. Lizbeth Onofre, RN Patient advised will call back in [...] vascular. Order placed. documented in this encounter [facility] 12-31-2022 History of Presen t illness Narrative [...] TIME: 2:14 PM documented in this encounter [facility] 12-23-2022 Miscellaneous Notes Spoke with patient regarding advanced directives. 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 Delia Weaver MA documented in this encounter [facility] 12-23-2022 Miscellaneous Notes The following approved medication requests have been transmitted electronically. Requested Prescriptions Signed Prescriptions Disp Refills thiamine (VITAMIN B-1) 50 mg tablet 30 tablet 5 Sig: Take 1 tablet by mouth once daily. Authorizing Provider: ERUM CASTANEDA folic acid 400 mcg tablet 30 tablet 5 Sig: Take 1 tablet by mouth once daily. Authorizing Provider: ERUM CASTANEDA PA-C Advised pt of nisreen and Erum's instructions. Pt verbalizes understanding. Pt [...] Erum Castaneda PA-C documented in this encounter [facility] 10-12-2022 Note HNO ID: [id number] Author: Ivania Estrada I, MD Service: ? Author Type: Physician Type: Progress Notes Filed: 10/12/2022 3:57 PM Note Text: NEUROSURGERY FOLLOW UP OFFICE NOTE Chair, Clinical Neurosciences Director, Spinal Neurosurgery [facility] Cynthia Byrd Date of visit: October 12, 2022 Patient Name: Mr.Ronald Winsome Henderson Date of : 1955 Current Age: [age] year old Sex: male MRN/E# [id number] Last Office Visit: 08/18/2022 Chief Complaint: Patient presents with: Established Patient Past Medical/Surgical History: Yaritza Henderson is a 66 year old, male with a history of HTN, ETOH abuse, fatty liver. He is a former smoker. HPI: Patient presented to [facility] on 07/06/2022, status post fall down 13 [...] consulted,Dr. Estrada. Nonoperative conservative treatment recommended with STATE COMPTROLLER collar at all times. He was discharged [...] time of fractures. He reported compliance with STATE COMPTROLLER collar and activity restrictions. He was recommended [...] weakness or paresthesia. He reported compliance with STATE COMPTROLLER collar and activity restrictions. His cervical and thoracic x-rays had been stable. He was mildly myelopathic on exam. He was requested to follow up in [address] scans of thoracic and cervical spine to see if STATE COMPTROLLER brace could be removed. The patient presents to the office today to review CT imaging. He denies pain at this time. He denies new weakness or numbness/tingling. He has been compliant with wearing STATE COMPTROLLER brace. He is not taking anything for pain for about 6 weeks. He He is here for evaluation and plan of care. Symptoms: patient denies pain PREVIOUS CONSERVATIVE TREATMENTS: STATE COMPTROLLER collar Zanaflex Tylenol PREVIOUS SURGERY: None PAIN [...] (EXEP) 06/21/2020 EF=60%, mild menchaca dysf, 1+ [place] COLONOSCOPY 01/09/2019 Dr. Gonzalez, repeat 10 yrs [...] tiZANidine (ZANAFLEX) 4 (more content not included)... [facility] 10-12-2022 History of Presen t illness Narrative NEUROSURGERY FOLLOW UP OFFICE NOTE Chair, Clinical Neurosciences Director, Spinal Neurosurgery [facility] Date of visit: October 12, 2022 Patient Name: Mr.Ronald Winsome Henderson Date of : 1955 Current Age: [age] year old Sex: male MRN/E# [id number] Last Office Visit: 08/18/2022 Chief Complaint: Patient presents with: Established Patient Past Medical/Surgical History: Yaritza Henderson is a 66 year old, male with a history of HTN, ETOH abuse, fatty liver. He is a former smoker. HPI: Patient presented to [facility] on 07/06/2022, status post fall down 13 [...] consulted,Dr. Estrada. Nonoperative conservative treatment recommended with STATE COMPTROLLER collar at all times. He was discharged [...] time of fractures. He reported compliance with STATE COMPTROLLER collar and activity restrictions. He was recommended [...] weakness or paresthesia. He reported compliance with STATE COMPTROLLER collar and activity restrictions. His cervical and thoracic x-rays had been stable. He was mildly myelopathic on exam. He was requested to follow up in [address] scans of thoracic and cervical spine to see if STATE COMPTROLLER brace could be removed. The patient presents to the office today to review CT imaging. He denies pain at this time. He denies new weakness or numbness/tingling. He has been compliant with wearing STATE COMPTROLLER brace. He is not taking anything for pain for about 6 weeks. He He is here for evaluation and plan of care. Symptoms: patient denies pain PREVIOUS CONSERVATIVE TREATMENTS: STATE COMPTROLLER collar Zanaflex Tylenol PREVIOUS SURGERY: None PAIN [...] (EXEP) 06/21/2020 EF=60%, mild menchaca dysf, 1+ [place] COLONOSCOPY 01/09/2019 Dr. Gonzalez, repeat 10 yrs [...] Negative for back pain and neck pain. STATE COMPTROLLER collar in place Skin: Negative for rash [...] MD Chair, Clinical Neurosciences Director, Spinal Neurosurgery [facility] This note was partially generated using LimeTray voice recognition system, and there may be some incorrect words, spellings, and punctuation that were not noted in checking the note before saving. documented in this encounter [facility] 09-17-2022 Miscellaneous Notes Pt notified of results, verbalizes understanding. Steve Ochoa LPN Let patient know repeat electrolyte panel shows kidney functions are back to normal. His sodium has also improved and is the best it has been in over 4 yrs. It would probably return to normal if he stopped drinking alcohol all together. documented in this encounter [facility] 08-18-2022 Note HNO ID: [id number] Author: Leah Blair APRN.BIRGIT Service: ? Author Type: Nurse Practitioner Type: Progress Notes Filed: 08/18/2022 1:13 PM Note Text: SPINE SURGERY FOLLOW UP NOTE Leah Blair APRN-[employer] Date of visit: August 18, 2022 Patient Name: Mr.Ronald Winsome Henderson Date of : 1955 Current Age: [age] year old Sex: male MRN/E# [id number] Last Office Visit: 07/17/2022 Chief Complaint: Patient presents with: Established Patient HPI Mr.Ronald Winsome Henderson has a past medical history of fatty alcoholic liver disease with EtOH abuse and hypertension. Presented to [facility] on 07/06/2022, status post fall down 13 [...] consulted,Dr. Estrada. Nonoperative conservative treatment recommended with STATE COMPTROLLER collar at all times. He was discharged [...] time of fractures. He reported compliance with STATE COMPTROLLER collar and activity restrictions. He denied new [...] balance or gait. He reports compliance with STATE COMPTROLLER collar and activity restrictions. He expresses desire for removal of the STATE COMPTROLLER collar. PAIN EVALUATION No data found in [...] (EXEP) 06/21/2020 EF=60%, mild menchaca dysf, 1+ [place] COLONOSCOPY 01/09/2019 Dr. Gonzalez, repeat 10 yrs [...] Device 0 tiZANidi (more content not included)... [facility] 08-18-2022 History of Presen t illness Narrative Images from the original note were not included. SPINE SURGERY FOLLOW UP NOTE Leah Blair APRN-BIRGIT Date of visit: August 18, 2022 Patient Name: Mr.Ronald Winsome Henderson Date of : 1955 Current Age: [age] year old Sex: male MRN/E# [id number] Last Office Visit: 07/17/2022 Chief Complaint: Patient presents with: Established Patient HPI Mr.Ronald Winsome Henderson has a past medical history of fatty alcoholic liver disease with EtOH abuse and hypertension. Presented to [facility] on 07/06/2022, status post fall down 13 [...] consulted,Dr. Estrada. Nonoperative conservative treatment recommended with STATE COMPTROLLER collar at all times. He was discharged [...] time of fractures. He reported compliance with STATE COMPTROLLER collar and activity restrictions. He denied new [...] balance or gait. He reports compliance with STATE COMPTROLLER collar and activity restrictions. He expresses desire for removal of the STATE COMPTROLLER collar. PAIN EVALUATION No data found in [...] (EXEP) 06/21/2020 EF=60%, mild menchaca dysf, 1+ [place] COLONOSCOPY 01/09/2019 Dr. Gonzalez, repeat 10 yrs [...] of motion: Cervical: Limited range of motion, STATE COMPTROLLER collar maintained. Lumbar: Normal range of motion, [...] cervical spine. Plan: CT CERVICAL SPINE WO SHAYY (S12.600D) Closed displaced fracture of seventh cervical [...] exam. Discussed with patient need to maintain STATE COMPTROLLER collar at this time as he is only 6 weeks since initial injury. Although frustrated he is understanding of importance of STATE COMPTROLLER collar and activity restrictions. We will have him follow-up in [address] of cervical and thoracic spine at that time he will be 11 weeks since initial injury. He can follow-up with Dr. Estrada as she was following him throughout hospitalization in hopes to clear STATE COMPTROLLER collar. Will defer flexion/extension films until CT of cervical spine obtained, will need same-day after Dr. Estrada reviews CT scan Patient is to contact office if any new or worsening symptoms arise. Plan: CT CERVICAL SPINE WO SHAYY Blair, INJECTION MOLDING TECHNICIAN-LECTURER OF [place] [facility] This note was partially generated using LimeTray voice recognition system, and there may be some incorrect words, spellings, and punctuation that were not noted in checking the note before saving. documented in this encounter [facility] 08-05-2022 History of Presen t illness Narrative Yaritza Henderson is identified through a medication adherence outreach initiative based on pharmacy claims data from [employer] (insurer) for BROCK medication(s). Patient is reviewed [...] Next fill date per reconcile dispense Sharron Fontenot Salon Customer Experience Specialist documented in this encounter [facility] 08-04-2022 History of Presen t illness Narrative Patient's home health 485 form / care plan for certification period 07/11/2022 to 09/08/2022 reviewed and signed. Relevant medical records were reviewed. No changes were indicated documented in this encounter [facility] 07-28-2022 Miscellaneous Notes SITUATION: dtr and son [...] for intervention/education details. documented in this encounter [facility] 07-20-2022 Miscellaneous Notes Spoke with pt and [...] to the pharmacy. Please call patient at: [phone] Patient has been identified by name and [...] to the pharmacy. Please call patient at: [phone] Kaylee Morales documented in this encounter [facility] 07-17-2022 History of Past i llness Narrative [...] of this encounter (statuses as of 12/23/2022) [facility] History of Past illness Narrative* Problem Noted [...] of this encounter (statuses as of 12/23/2022) [facility] History of Past illness Narrative* Problem Noted [...] of this encounter (statuses as of 01/02/2023) [facility] History of Past illness Narrative* Problem Noted [...] of this encounter (statuses as of 03/16/2023) [facility] History of Past illness Narrative* Problem Noted [...] of this encounter (statuses as of 04/04/2023) [facility] History of Past illness Narrative* Problem Noted [...] of this encounter (statuses as of 04/04/2023) [facility]-17[facility] History of Past illness Narrative* Problem Noted [...] of this encounter (statuses as of 07/19/2023) [facility]02-17-2023 NoteHNO ID: [id number] Author: Leah Blair APRN.CNP Service: ? Author Type: Nurse Practitioner Type: Progress Notes Filed: 07/17/2022 3:42 PM Note Text: SPINE SURGERY FOLLOW UP NOTE YEMI Waldron Date of visit: July 17, 2022 Patient Name: Mr.Ronald Winsome Henderson Date of : 1955 Current Age: [age] year old Sex: male MRN/E# [id number] Last Office Visit: 07/09/2022 Chief Complaint: Fracture follow up HPI Mr.Ronald Winsome Henderson has a past medical history of fatty alcoholic liver disease with EtOH abuse and hypertension. Presented to [facility] on 07/06/2022, status post fall down 13 [...] consulted,Dr. Estrada. Nonoperative conservative treatment recommended with STATE COMPTROLLER collar at all times. He was discharged on 07/08/2022 with instructions to follow-up with neurosurgery in 2 weeks time, prompting visit today. He presents to the office today, 2 weeks since initial injury, and reports doing well since hospital discharge. He reports compliance with STATE COMPTROLLER collar and activity restrictions. He denies any [...] (EXEP) 06/21/2020 EF=60%, mild menchaca dysf, 1+ [place] COLONOSCOPY 01/09/2019 Dr. Gonzalez, repeat 10 yrs [...] 2 tablets by mo (more content not included)...[facility]02-17-2023 History of Present illness Narrative* Leah Blair APRN.CNP - 07/17/2022 9:30 AM EST Images from the original note were not included. SPINE SURGERY FOLLOW UP NOTE YEMI Waldron Date of visit: July 17, 2022 Patient Name: Mr.Ronald Winsome Henderson Date of : 1955 Current Age: [age] year old Sex: male MRN/E# [id number] Last Office Visit: 07/09/2022 Chief Complaint: Fracture follow up HPI Mr.Ronald Winsome Henderson has a past medical history of fatty alcoholic liver disease with EtOH abuse and hypertension. Presented to [facility] on 07/06/2022, status post fall down 13 [...] consulted,Dr. Estrada. Nonoperative conservative treatment recommended with STATE COMPTROLLER collar at all times. He was discharged on 07/08/2022 with instructions to follow-up with neurosurgery in 2 weeks time, prompting visit today. He presents to the office today, 2 weeks since initial injury, and reports doing well since hospital discharge. He reports compliance with STATE COMPTROLLER collar and activity restrictions. He denies any [...] (EXEP) 06/21/2020 EF=60%, mild menchaca dysf, 1+ [place] COLONOSCOPY 01/09/2019 Dr. Gonzalez, repeat 10 yrs [...] of motion: Cervical: Limited range of motion, STATE COMPTROLLER brace collar maintained. Lumbar: Normal range of [...] pounds, avoid bending/twisting at waist, and maintain STATE COMPTROLLER collar at all times. Discussed with patient [...] EXTRA STRENGTH) 500 mg tablet Leah Blair APRN-BIRGIT Neurosurgery Nurse Practitioner [facility] Cynthia Byrd This note was partially generated using LimeTray voice recognition system, and there may be some incorrect words, spellings, and punctuation that were not noted in checking the note before saving. documented [facility] this [facility]Tr[facility] Miscellaneous Notes* Telephone Encounter - Aylin Dubois [...] 2 weeks. Order placed. documented in this encounterTr[facility] Miscellaneous Notes* PT ROUTINE/REASSESSMENT/RECERT/CASE MGMT - Erika Haney PTA - 07/16/2022 12:05 PM EST SITUATION: daughter present during today's visit. patient reports the following since the last homecare visit:medications/allergies--no changes, no fall. patient reports he saw PC Dr today and all went well. .Mandie reports he is waiting on Dr to [...] summary for intervention/education details. documented in this encounterTr[facility] History of Present illness Narrative* Fredrick Feliciano [...] note) Mr. Yaritza Henderson was admitted to [facility] under the care of the trauma surgery team on 07/06/2022 as a transfer from [facility] for treatment of injuries sustained during a [...] recommended non-operativetreatment. He was fitted for a STATE COMPTROLLER brace to be worn at all times [...] was determined likelyto be chronic and not commercial representative of a mesenteric injury. He tolerated [...] vertebra, unspecified cervical vertebral level, initial encounter (HCC) - ICD9: 805.00, ICD10: S12.9XXA (primary diagnosis) [...] November. Fredrick Feliciano MD documented in this encounterTr[facility] Miscellaneous Notes* Telephone Encounter - Denis Monteiro [...] understood and was appreciative. Denis Monteiro RN documented in this encounterTr[facility] Miscellaneous Notes* OT EVALUATION/REASSESSMENT/RECERT - Nayana Thomson OT/Winsome - 07/15/2022 1:20 PM EST SITUATION: OT [...] - Precautions/Activity Restrictions: Brace, Fall Risk - STATE COMPTROLLER brace to be worn at all times until cleared by your neurosurgeon. - SPECIALIST FOLLOW-UP: Dr. Estrada (Neurosurgery): 2 weeks ASSESSMENT: Patient evaluated by [facility] Homecare occupational therapy. Reviewed and explained homecare services. Plan of care, goals and visit frequency developed, reviewed, and agreed upon with patient and/or caregiver. Current Discharge Plan:remain in community with/without caregiver support. Anticipate discharge by 07/15/22 RECOMMENDATION: See intervention summary for intervention/education details. documented in this encounterTr[facility]23 Miscellaneous Notes* PT ROUTINE/REASSESSMENT/RECERT/CASE MGMT - Amie [...] Precautio ns/Activity Restrictions: Brace, Fall Risk - STATE COMPTROLLER brace to be worn at all times [...] summary for intervention/education details. documented in this encounterTr[facility] Miscellaneous Notes* HH PT SOC/JR/FOLLOW UP/OTHER - Tami Josue, PT [...] Precautio ns/Activity Restrictions: Brace, Fall Risk - STATE COMPTROLLER brace to be worn at all times until cleared by your neurosurgeon. - SPECIALIST FOLLOW-UP: Dr. Estrada (Neurosurgery): 2 weeks ASSESSMENT: Patient evaluated by [facility] Homecare physical therapy. Reviewed and explained homecare [...] summary for intervention/education details. documented in this encounterTr[facility]02-[facility]23 Miscellaneous Notes* Telephone Encounter - Demarcus Allen [...] 3:37 PM EST ----- Regarding: pt appt Mason! Yaritza to see SW in 2 wks with xr - ordered Dx: C7, T1, T2 fxs thx documented in this encounterTrinity [facility]02-[facility] History of Present illness Narrative* Rula Leong [...] number and will call to schedule TCM 07.16.22 Lara Clements [facility] Pt requested [facility] is provided the following numbers if unable to reach pt Dtr Tami [phone] Son in law Angel [phone] Please note as requested Denies new or worsening symptoms Denies chest pain, sob, fever, chills States mild nausea and vomiting after taking sodium bicarbonate; tolerating Encouraged to notify provider if n/v worsens or persistent and to stay well hydrated Weaing a STATE COMPTROLLER brace 21/12 Reviewed med adj; verbalized understanding [...] No pending results. SUMMARY: Pt discharged from [facility] on 07.08.22. Admitted for: Ground Level Fall Contact made with patient: Yes Hi my name is Rula Leong RN and I am calling from the [facility] on behalf of your PCP,Fredrick Feliciano MD [...] like to speak with a social work molybdenum steamer operator to help give you support for any [...] I will send your request to a web programmer who will contact and assist you with [...] Rula Leong RN BSN Primary Care Transitional Rayon Coner [facility] documented in this encounterTrinity Health [facility]02-[facility]-2023 NoteHNO ID: [id number] Author: Anabella Jeffery RN Service: Care Management [...] needs and plan for meeting these needs: [facility] TRANSPORTATION ARRANGEMENTS: Transportation Arrangements: Car ADDITIONAL CONTACT RESOURCES: Needs Prior to Discharge: Ready for Discharge Caregiver is ready, willing and able to meet the patient's needs as recommended by the inter-professional team:: No Caregiver needed Transportation Arrangements: Car Discharge orders in place, pt agreeable to home pt/ot, [facility] able to accept, home care order in place, pt's states he has transportation home, pt ready for discharge from care management standpoint SIGNATURE: Anabella Jeffery RN PATIENT NAME: Yaritza Henderson DATE: July 08, 2022 TIME: 1:32 PM PAGER/CONTACT #: [phone]23 NoteHNO ID: [id number] Author: Medina Treviño PA-C Service: Neurosurgery Author Type: Physician Asphalt Spreader Operator Type: Progress Notes Filed: 07/08/2022 9:04 AM [...] 07/07/22699 - 07/08/2265807/08/22699 - 07/09/22 0659 Shift 3604-1809 2091-7810 3096-3999 24 Hour Total 5441-0896 1669-6298 8948-5499 24 Hour Total INTAKE PO 220 220 PO 220 220 Shift Total 220 220 OUTPUT Urine 9620 428 4246 Void (ml) 1367 805 8926 Shift Total 6119 966 1782 Weight (kg) 83.5 83.5 83.5 83.5 83.5 [...] HEENT: Normocephalic; atraumatic LUNGS: Unlabored breathing NECK/BACK: STATE COMPTROLLER on ASSESSMENT AND PLAN: 66 year old [...] July 08, 2022 TIME: 8:57 AM P[facility]: [phone] NoteHNO ID: [id number] Author: MICHAEL Chase Service: Care Management Author Type: Public Health Worker Type: Care Mgt Initial Assessment Filed: 07/07/2022 6:51 PM Note Text: CARE MANAGEMENT: ASSESSMENT AND DISCHARGE PLAN SERVICE DATE: July 07, 2022 SERVICE TIME: 10:30 AM PRIMARY CARE PHYSICIAN: Fredrick Feliciano MD Primary Contact: Extended Emergency Contact Information Primary Emergency Contact: Екатерина Garcia Mobile Relation: Significant other ADMISSION STATUS: Inpatient Insurance Provider: LUIS SANCHEZ Dean NEEDS PRIOR TO DISCHARGE Needs Prior to Discharge: To Be Determined, OT/PT Evaluation POTENTIAL TRANSITION PLANS Home Based on clinical judgement, Care Management will address the following needs: Medical;Functional;Cognitive;Social Patient's perception of need for this admission: fall ADVANCE DIRECTIVES Current Advance Directive: None Behavioral Health Director Attempted to Assist with AD Completion: Yes [...] discharge within 30 days: No PATIENT SCREEN 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 After 5pm and on Weekends and Holidays, please page [phone] if in ICU or [phone] if on RNF. SUBJECTIVE: NAEON. VSS. RA. [...] 07/06/22699 - 07/07/2265807/07/22699 - 07/08/22 0659 Shift 3539-9643 8850-7404 6955-6972 24 Hour Total 7602-6459 0652-1529 8535-7807 24 Hour Total INTAKE IV 500 500 [...] fall down multiple steps 07/04/2022 (Transfer from [place]) Imaging performed: 07/06/2022 - CT HN (completed, [...] None at this time (more content not included)...[facility]01-10-2023 Miscellaneous Notes* Telephone Encounter - Althea Peguero [...] his labs are wnl. documented in this encounterTr[facility]01-[facility]23 Miscellaneous Notes* Telephone Encounter - Delia Weaver [...] refill: 07/2021 * Telephone Encounter - Darby Herrear - 06/03/2022 12:46 PM EST Patient has [...] Thank you. Darby Herrera documented in this encounterTrinity [facility]12-19-2022 Miscellaneous Notes* Telephone Encounter - Fredrick Feliciano MD - 05/18/2022 4:39 PM EST Noted. * Telephone Encounter - Kat Ludwig [facility] - 05/18/2022 3:17 PM EST [employer] insurance calling inviting Dr. Feliciano to a phone round on 06/04/22 at 4 p to discuss patient' care plan. There is a Health care plan and care plan available through [facility] [phone] opt 3 documented in this encounterTrinity [facility]07-07-2022 Miscellaneous Notes* Telephone Encounter - Delia Weaver [...] for eval (Dr. Garvin) documented in this encounterTrinity Health [facility]11-26-2018 History of Past illness Narrative* Problem Noted Date Resolved Date Proteinuria 04/25/2018 11/19/2021 documented as of this encounter (statuses as of 12/04/2021) [facility] of Past illness Narrative* Problem Noted Date Resolved Date Proteinuria 04/25/2018 11/19/2021 documented as of this encounter (statuses as of 05/18/2022) [facility] of Past illness Narrative* Problem Noted Date Resolved Date Proteinuria 04/25/2018 11/19/2021 documented as of this encounter (statuses as of 06/05/2022) [address] History of Past illness Narrative* Problem Noted Date Resolved Date Proteinuria 04/25/2018 11/19/2021 documented as of this encounter (statuses as of 06/09/2022) [address] History of Past illness Narrative* Problem Noted Date Resolved Date Proteinuria 04/25/2018 11/19/2021 documented as of this encounter (statuses as of 07/08/2022) [address] History of Past illness Narrative* Problem Noted Date Resolved Date Proteinuria 04/25/2018 11/19/2021 documented as of this encounter (statuses as of 07/09/2022) [address] History of Past illness Narrative* Problem Noted Date Resolved Date Proteinuria 04/25/2018 11/19/2021 documented as of this encounter (statuses as of 07/12/2022) [address] History of Past illness Narrative* Problem Noted Date Resolved Date Proteinuria 04/25/2018 11/19/2021 documented as of this encounter (statuses as of 07/14/2022) [address] History of Past illness Narrative* Problem Noted Date Resolved Date Proteinuria 04/25/2018 11/19/2021 documented as of this encounter (statuses as of 07/15/2022) [address] History of Past illness Narrative* Problem Noted Date Resolved Date Proteinuria 04/25/2018 11/19/2021 documented as of this encounter (statuses as of 07/16/2022) [address] History of Past illness Narrative* Problem Noted Date Resolved Date Proteinuria 04/25/2018 11/19/2021 documented as of this encounter (statuses as of 07/16/2022) [address] History of Past illness Narrative* Problem Noted Date Resolved Date Proteinuria 04/25/2018 11/19/2021 documented as of this encounter (statuses as of 07/16/2022) [address] History of Past illness Narrative* Problem Noted Date Resolved Date Proteinuria 04/25/2018 11/19/2021 documented as of this encounter (statuses as of 07/17/2022) [place] [address] History of Past illness Narrative* Problem Noted Date Resolved Date Proteinuria 04/25/2018 11/19/2021 documented as of this encounter (statuses as of 07/17/2022) [address] History of Past illness Narrative* Problem Noted Date Resolved Date Proteinuria 04/25/2018 11/19/2021 documented as of this encounter (statuses as of 07/18/2022) [address] History of Past illness Narrative* Problem Noted Date Resolved Date Proteinuria 04/25/2018 11/19/2021 documented as of this encounter (statuses as of 07/20/2022) [address] History of Past illness Narrative* Problem Noted Date Resolved Date Proteinuria 04/25/2018 11/19/2021 documented as of this encounter (statuses as of 07/28/2022) [address] History of Past illness Narrative* Problem Noted Date Resolved Date Proteinuria 04/25/2018 11/19/2021 documented as of this encounter (statuses as of 08/05/2022) [address] History of Past illness Narrative* Problem Noted Date Resolved Date Proteinuria 04/25/2018 11/19/2021 documented as of this encounter (statuses as of 08/05/2022) [address] History of Past illness Narrative* Problem Noted Date Resolved Date Proteinuria 04/25/2018 11/19/2021 documented as of this encounter (statuses as of 08/18/2022) [address] History of Past illness Narrative* Problem Noted Date Resolved Date Proteinuria 04/25/2018 11/19/2021 documented as of this encounter (statuses as of 08/19/2022) [address] History of Past illness Narrative* Problem Noted Date Resolved Date Proteinuria 04/25/2018 11/19/2021 documented as of this encounter (statuses as of 09/18/2022) [address] History of Past illness Narrative* Problem Noted Date Resolved Date Proteinuria 04/25/2018 11/19/2021 documented as of this encounter (statuses as of 10/13/2022) [address] History of Past illness Narrative* Problem Noted Date Resolved Date Proteinuria 04/25/2018 11/19/2021 documented as of this encounter (statuses as of 10/13/2022) [facility] of Past illness Narrative* Problem Noted Date Resolved Date Proteinuria 04/25/2018 11/19/2021 documented as of this encounter (statuses as of 10/13/2022) [facility] Author Chai Frye [facility] Note Date/Time January 20, 2025 12 :40pm [facility] Medical Records Department [address] [place] [address] Emergency Department Summary 01/20/25 MR#: [id number] Acct: [id number] Name: YARITZA HENDERSON Rep #:[id number] : 1955 69 From: Chai Frye MD PCP: Dr. Fredrick Feliciano MD Status:REG ER Location: ED HPI History of Present Illness Chief Complaint: General Illness Informant: patient Narrative Narrative: 69-year-old male states he was sent in because his sodium was abnormal when it was drawn a day or 2 ago. He states it was a routine 6-month checkup and he washaving labs done routinely. He has been and is now asymptomatic. No medicationchanges, he takes medications for high blood pressure. He states he is an alcohol user, used to drink heavily, but he had a fall down the steps remotely, and so he significantly decrease his usage to about two 24 ounce beers per day. He has not had any yet this morning. He does not feel shaky or have withdrawal symptoms in the mornings. He denies any problems urinating. [facility] History residential use of drug Elevated LFTs Alcohol abuse Essential (primary) hypertension Home Medications ?Medication ?Instructions ?Recorded ?Last Taken ?Type lisinopril 40 mg tablet 40 mg PO DAILY 30 days #30 t abs 10/18/18 01/09/19 09:00 History 40 MG amlodipine 10 mg tablet 10 mg PO DAILY 06/18/20 Unkn own History cyanocobalamin (vitamin B-12) 1,000 mcg PO DAILY 06/18 Unknown History 1,000 mcg tablet thiamine HCl (vitamin B1) 100 mg 100 mg PO DAILY 07/06 Unknown History tablet Allergy/AdvReac Type Severity Reaction Status Date / Time No Known Allergies Allergy Verified 07/06/22 05:57 Social History Smoking Status: Former smoker quit date: 05/31/74 pack-years: 11 alcohol intake: current alcohol intake frequency: 3 or more drinks per day Alcohol type: beer ROS ROS ED Constitutional Constitutional ED: Denies chills or fever(s) Eyes Eyes: Denies change in vision or diplopia ENT ENT ED: Denies rhinorrhea or sore throat Cardiovascular Cardiovascular: Denies chest pain or palpitations Respiratory/Chest Respiratory/Chest: Denies cough or dyspnea Gastrointestinal Gastrointestinal: Denies abdominal pain, diarrhea, nausea or vomiting Genitourinary Genitourinary ED: Denies dysuria or hematuria Musculoskeletal Musculoskeletal: Denies back pain or neck pain Integumentary Denies abscess or rash Neurologic Neurologic: Denies headache(s), paresthesias or weakness Psychiatric Psychiatric: Denies anxiety or suicidal thoughts EXAM Physical Exam Const Vital Signs: 01/20/25 09:41 01/20/25 10:04 01/20/25 10:59 Temperature 98.9 F Temperature Source Oral Pulse Rate 84 70 Respiratory Rate 18 14 Respiratory Effort Normal Non-Labored Respiratory Pattern Normal Blood Pressure 116/87 H 137/88 H Blood Pressure Mean 96 104 Pulse Ox 100 100 Oxygen Delivery Method Room Air Room Air Positive well nourished and well developed General Appearance ED: well developed and NAD HEENT Reports moist mucous membranes normocephalic and atraumatic Eyes PERRL and EOMs intact bilaterally Neck full ROM and supple Resp normal respiratory effort and clear to auscultation bilaterally Cardio regular rate, regular rhythm and no murmurs GI non-tender and non-distended Auscultation: normoactive bowel sounds Palpation: soft Back/Spine no CVA tenderness General Back: other FROM Extremity normal to inspection General Extremety ED: Negative for edema, pulses abnormal or tenderness General Extremity: Negative for edema or pulses abnormal Neuro oriented x3, CN's II-XII intact bilaterally and no sensory deficits noted Sensorium / Orientation: awake and alert Motor Exam: strength 5/5 throughout Skin no rashes or lesions noted and no wounds MDM MDM MDM Narrative Medical decision making narrative: Repeated the patient's labs while we started some slow saline over the next couple hours. His sodium was 127 before we gave him the saline. He is asymptomatic does not have weakness or confusion. His alcohol and his HCTZ I suspect are both contributing to his hyponatremia. At this level and without symptoms he does not require admission at this time. I am having him discontinue the triamterene/HCTZ, and follow-up with his doctor as an outpatient. Also encouraged to try to curb his alcohol use possible. Lab Data Attestation: I reviewed the patient's lab results. Labs: Laboratory Results - last 24 hr 01/20/25 10:23 WBC 10.3 RBC 4.88 Hgb 15.6 Hct 43.9 MCV 90.0 MCH 32.0 MCHC 35.5 RDW Std Deviation 40.0 RDW Coeff of Oksana 12.1 Plt Count 273 MPV 7.5 Immature Gran % (Auto) 0.500 Neut % (Auto) 73.2 H Lymph % (Auto) 13.7 L [place] % (Auto) 11.2 H Eos % (Auto) 0.8 Baso % (Auto) 0.6 Absolute Neuts (auto) 7.5 Absolute Lymphs (auto) 1.41 Nucleated RBC % 0 Sodium 127 L Potassium 4.0 Chloride 90 L Carbon Dioxide 22.8 Anion Gap 15 BUN 15 Creatinine 1.12 Estim Creat Clear Calc 62.25 Est GFR (MDRD) Non-Af 70 BUN/Creatinine Ratio 13.8 Glucose 102 H Calcium 9.2 Discharge Plan Triage Chief Complaint: General Illness ED Provider: Chai Frye Dx/Rx/DC Orders Clinical Impression: Hyponatremia Instructions: ED Hyponatremia Prescriptions: Continued lisinopril 40 mg tablet 40 mg PO DAILY 30 Days Qty: 30 Patient Comments: Take 1 tablet by mouth twice daily. amlodipine 10 mg tablet 10 mg PO DAILY Patient Comments: Take 1 tablet by mouth once daily. cyanocobalamin (vitamin B-12) 1,000 mcg tablet 1,000 mcg PO DAILY Patient Comments: Take 1 tablet by mouth once daily. thiamine HCl (vitamin B1) 100 mg tablet 100 mg PO DAILY Patient Comments: Take 1 tablet by mouth once daily. Discontinued triamterene-hydrochlorothiazid 75-50 mg tablet 1 tab PO DAILY 30 Days Qty: 30 Patient Comments: TAKE 1 TABLET EVERY DAY Primary Care Provider: Fredrick Feliciano Referrals: Fredrick Feliciano MD [Primary Care Provider] - 3-5 Days Print Language: Yoruba Disposition Disposition: Home, Self Care What to do if you have Problems For any increased pain, shortness of breath, bleeding, nausea or vomiting, chestpain, or any unexpected problems, contact your Primary Care Provider. Call [facility] ([phone]) or report to the closest Emergency Room. Call 911 if necessary. 01/20/25 1240 <Electronically signed by Chai Frye MD> Cosigner Signature (if applicable): CC: Dr. Fredrick Feliciano MD ~ Signed [facility] Work Phone: Evaluation note* Diagnosis Elevated alkaline phosphatase level- Primary Other nonspecific abnormal serum enzyme levels Elevated serum protein level Other nonspecific findings on examination of blood Hyponatremia Hyposmolality and/or hyponatremia Renal insufficiency Unspecified disorder of kidney and ureter [facility] Alcohol abuse Alcohol abuse, unspecified [facility] Diagnosis Closed displaced fracture of seventh cervical vertebra with routine healing, unspecified fracture morphology, subsequent encounter- Primary Compression fracture of T1 vertebra, sequela [facility] Diagnosis Closed fracture of cervical vertebra, unspecified cervical vertebral level, initial encounter (HCC)- Primary Hypertension, essential Unspecified essential hypertension Hyponatremia Hyposmolality and/or hyponatremia Alcohol abuse Alcohol abuse, unspecified [facility] Diagnosis Renal insufficiency- Primary Unspecified disorder of kidney and ureter [facility] Diagnosis Spinal stenosis in cervical region- Primary Closed fracture of spinous process of cervical vertebra, subsequent encounter Closed fracture of first thoracic vertebra with routine healing, unspecified fracture morphology, subsequent encounter [facility] Diagnosis Closed displaced fracture of seventh cervical vertebra with routine healing, unspecified fracture morphology, subsequent encounter Compression fracture of T1 vertebra, sequela [facility] Diagnosis Closed nondisplaced fracture of seventh cervical vertebra, unspecified fracture morphology, initial encounter (HCC) [facility] Diagnosis Closed displaced fracture of [...] history of fall [facility] Diagnosis Spinal stenosis in cervical region- Primary Closed displaced fracture of seventh cervical vertebra with routine healing, unspecified fracture morphology, subsequent encounter Closed fracture of first thoracic vertebra with routine healing, unspecified fracture morphology, subsequent encounter [facility] Diagnosis Closed fracture of spinous process of cervical vertebra, subsequent encounter Closed fracture of first thoracic vertebra with routine healing, unspecified fracture morphology, subsequent encounter [facility] Diagnosis Spinal stenosis in cervical region- Primary Closed displaced fracture of seventh cervical vertebra with routine healing, unspecified fracture morphology, subsequent encounter [facility] Diagnosis Closed displaced fracture of seventh cervical vertebra with routine healing, unspecified fracture morphology, subsequent encounter Spinal stenosis in cervical region Closed fracture of first thoracic vertebra with routine healing, unspecified fracture morphology, subsequent encounter [facility] Diagnosis Spinal stenosis in cervical region [facility] Diagnosis Alcohol abuse- Primary Alcohol abuse, unspecified Folate deficiency Other B-complex deficiencies [facility] Diagnosis PVD (peripheral vascular disease) (HCC) Peripheral vascular disease, unspecified [facility] Diagnosis Acute bilateral low back pain without sciatica- Primary [facility]* Diagnosis Alcohol abuse Alcohol abuse, unspecified Bilateral leg edema Edema Diminished pulses in lower extremity Other symptoms involving cardiovascular system Ex-smoker Personal history of tobacco use, presenting hazards to health [facility] Diagnosis Hypertension, essential Unspecified essential hypertension [facility] Diagnosis Medicare annual wellness visit, subsequent- [...] Alcoholic fatty liver [facility] Diagnosis Elevated PSA- Primary Elevated prostate specific antigen (PSA) Alkaline phosphatase elevation Other nonspecific abnormal serum enzyme levels [facility] Diagnosis Alkaline phosphatase elevation- Primary Other nonspecific abnormal serum enzyme levels Elevated PSA Elevated prostate specific antigen (PSA) [facility] Diagnosis Alkaline phosphatase elevation Other nonspecific abnormal serum enzyme levels [facility] Diagnosis Acute bilateral low back pain without sciatica [facility] Diagnosis Hypertension, essential- Primary Unspecified essential hypertension Anemia, unspecified type Folate deficiency Other B-complex deficiencies Elevated LFTs Other abnormal blood chemistry Hyponatremia Hyposmolality and/or hyponatremia Alcohol abuse Alcohol abuse, unspecified Fatty liver, alcoholic Alcoholic fatty liver [facility] Diagnosis Alkaline phosphatase elevation- Primary Other nonspecific abnormal serum enzyme levels [facility] Diagnosis Hypertension, essential Unspecified essential hypertension [facility] Diagnosis Hypertension, essential- Primary Unspecified essential hypertension PVD (peripheral vascular disease) (HCC) Peripheral vascular disease, unspecified Alcohol abuse Alcohol abuse, unspecified Hyponatremia Hyposmolality and/or hyponatremia Orthostatic hypotension Alkaline phosphatase elevation Other nonspecific abnormal serum enzyme levels [facility] Diagnosis Hypertension, essential- Primary Unspecified essential hypertension Orthostatic hypotension [facility] Diagnosis Orthostatic hypotension- Primary Fall, initial encounter Hypertension, essential Unspecified essential hypertension Rib pain Chest pain, unspecified Hyponatremia Hyposmolality and/or hyponatremia Alcohol abuse Alcohol abuse, unspecified Fatty liver, alcoholic Alcoholic fatty liver Folate deficiency Other B-complex deficiencies Prostate disorder Unspecified disorder of prostate Anemia, unspecified type Contusion of right elbow, initial encounter [facility] this [facility] Diagnosis Fall, initial encounter Rib pain Chest pain, unspecified [facility] noteNo assessment information availableWAdams [facility] Work Phone: Evaluation note* Diagnosis Hyponatremia- Primary Hyposmolality and/or hyponatremia Hypertension, essential Unspecified essential hypertension JERRY (acute kidney injury) Acute kidney failure, unspecified Orthostatic hypotension documented in this encounter [facility] note* Diagnosis Orthostatic hypotension- Primary Hyponatremia Hyposmolality and/or hyponatremia Hypertension, essential Unspecified essential hypertension Alcohol abuse Alcohol abuse, unspecified JERRY (acute kidney injury) Acute kidney failure, unspecified Fatty liver, alcoholic Alcoholic fatty liver Syncope, unspecified syncope type Orthostatic lightheadedness Dizziness and giddiness documented in this encounter [facility] Plan of care note* Visit Details [...] home exercise program. [facility] Visit Details [...] and bath mat. [facility]* Visit Details Visit Type -SOCIAL WORK LECTURER ROUTINE Discipline -Physical Therapy Problems Problem Description [...] community ambulation, in order to return to [facility], to be achieved by 07/31/22 PT Impaired [...] home exercise program. [facility]* Visit Details [...] community ambulation, in order to return to [facility], to be achieved by 07/31/22 PT Impaired [...] Training Problem:PT Impaired mobility Goal:Improved Transfers Completed ECCIL transfers with safe/proper technique Physical Therapy Stair [...] include: verbal cues. documented in this encounter [facility] for referral (narrative)* Diagnostic Procedure Only (Routine) - Pending Review Specialty Diagnoses / Procedures Referred By Contac t Referred To Contact XR IMAGING Diagnoses Compression fracture of T1 vertebra, sequela Procedures XR THORACIC LIMITED 2V AP/LAT RADEX SPINE THORACIC 2 VIEWS Medina Treviño, PA-C [address] [place] [address] Xr Imaging Referral ID Status Reason Start Date Expiration Date Visits Requested Visits Authorized [id number] Pending Review Auto-Generat ed Referral 07/08/2022 08/07/2023 [...] 3 VIEWS Medina Treviño PA-C [address] [place] [address] Xr Imaging Referral ID Status Reason Start Date Expiration Date Visits Requested Visits Authorized [id number] Pending Review Auto-Generat ed Referral 07/08/2022 08/07/2023 1 1 [facility] for referral (narrative)* Diagnostic Procedure Only (Routine) - Authorized Specialty Diagnoses / Procedures Referred By Contac t Referred To Contact XR IMAGING Diagnoses Closed fracture of first thoracic vertebra with routine healing, unspecified fracture morphology, subsequent encounter Procedures XR THORACIC LIMITED 2V AP/LAT RADEX SPINE THORACIC 2 VIEWS Leah Blair, ZAKI.[employer] [address] [place] [address] Xr Imaging Referral ID Status Reason Start Date Expiration Date Visits Requested Visits Authorized [id number] Authorized Auto-Generat ed Referral 07/17/2022 08/16/2023 1 1 * Diagnostic Procedure Only (Routine) - Authorized Specialty Diagnoses / Procedures Referred By Contac t Referred To Contact XR IMAGING Diagnoses Closed fracture of spinous process of cervical vertebra, subsequent encounter Procedures XR CERV GENERAL 2V AP/LAT RADEX SPINE CERVICAL 2 OR 3 VIEWS Leah Blair, INJECTION MOLDING TECHNICIAN.[employer] [address] [place] [address] Xr Imaging Referral ID Status Reason Start Date Expiration Date Visits Requested Visits Authorized [id number] Authorized Auto-Generat ed Referral 07/17/2022 08/16/2023 1 1 [facility] for referral (narrative)* Diagnostic Procedure Only (Routine) - Closed Specialty Diagnoses / Procedures Referred By Contac t Referred To Contact XR IMAGING Diagnoses Compression fracture of T1 vertebra, sequela Procedures XR THORACIC LIMITED 2V AP/LAT RADEX SPINE THORACIC 2 VIEWS Medina Treviño PA-C [address] [place] [address] Xr Imaging Referral ID Status Reason Start Date Expiration Date V isits Requested Visits Authorized [id number] Closed Auto-Generate d Referral 07/08/2022 08/07/2023 1 1 * Diagnostic Procedure Only (Routine) - Closed Specialty Diagnoses / Procedures Referred By Contac t Referred To Contact XR IMAGING Diagnoses Closed displaced fracture of seventh cervical vertebra with routine healing, unspecified fracture morphology, subsequent encounter Procedures XR CERV GENERAL 2V AP/LAT RADEX SPINE CERVICAL 2 OR 3 VIEWS Medina Treviño PA-C [address] [place] [address] Xr Imaging Referral ID Status Reason Start Date Expiration Date V isits Requested Visits Authorized [id number] Closed Auto-Generate d Referral 07/08/2022 08/07/2023 1 1 [facility] for referral (narrative)* Diagnostic Procedure Only (Routine) - Closed Specialty Diagnoses / Procedures Referred By Contac t Referred To Contact XR IMAGING Diagnoses Closed fracture of first thoracic vertebra with routine healing, unspecified fracture morphology, subsequent encounter Procedures XR THORACIC LIMITED 2V AP/LAT RADEX SPINE THORACIC 2 VIEWS Laeh Blair APRN.[employer] [address] [place] [address] Xr Imaging Referral ID Status Reason Start Date Expiration Date V isits Requested Visits Authorized [id number] Closed Auto-Generate d Referral 07/17/2022 08/16/2023 1 1 * Diagnostic Procedure Only (Routine) - Closed Specialty Diagnoses / Procedures Referred By Contac t Referred To Contact XR IMAGING Diagnoses Closed fracture of spinous process of cervical vertebra, subsequent encounter Procedures XR CERV GENERAL 2V AP/LAT RADEX SPINE CERVICAL 2 OR 3 VIEWS Leah Blair APRN.[employer] [address] [place] [address] Xr Imaging Referral ID Status Reason Start Date Expiration Date V isits Requested Visits Authorized [id number] Closed Auto-Generate d Referral 07/17/2022 08/16/2023 1 1 [facility] for referral (narrative)* Diagnostic Procedure Only (Routine) - Closed Specialty Diagnoses / Procedures Referred By Contac t Referred To Contact XR IMAGING Diagnoses Spinal stenosis in cervical region Procedures XR CERV OTHER 4V AP/LAT/FLX/EXT RADEX SPINE CERVICAL 4 OR 5 VIEWS Ivania Estrada I, MD [address] [facility] [place] [address] Xr Imaging Referral ID Status Reason Start Date Expiration Date V isits Requested Visits Authorized [id number] Closed Auto-Generate d Referral 10/12/2022 11/11/2023 1 1 [facility] for referral (narrative)* Diagnostic Procedure Only (Routine) - Closed Specialty Diagnoses / Procedures Referred By Contac t Referred To Contact XR IMAGING Diagnoses Spinal stenosis in cervical region Procedures XR CERV OTHER 4V AP/LAT/FLX/EXT RADEX SPINE CERVICAL 4 OR 5 VIEWS Ivania Estrada I, MD [address] [place] [address] Xr Imaging Referral ID Status Reason Start Date Expiration Date V isits Requested Visits Authorized [id number] Closed Auto-Generate d Referral 10/12/2022 11/11/2023 1 1 [facility] for referral (narrative)* Diagnostic Procedure Only (Routine) - New Request Specialty Diagnoses / Procedures Referred By Contac t Referred To Contact US IMAGING Diagnoses Alkaline phosphatase elevation Procedures US ABD RIGHT UPPER QUADRANT US ABDOMINAL REAL TIME W/IMAGE LIMITED Erum Castaneda PA-C [address] [place] [address] [place] [address] Referral ID Status Reason Start Date Expiration Date Visits Requested Visits Authorized [id number] New Request Auto-Generat ed Referral 01/06/2024 02/04/2025 1 1 [facility] for referral (narrative)* Diagnostic Procedure Only (Routine) - Closed Specialty Diagnoses / Procedures Referred By Contac t Referred To Contact US IMAGING Diagnoses Alkaline phosphatase elevation Procedures US ABD RIGHT UPPER QUADRANT US ABDOMINAL REAL TIME W/IMAGE LIMITED Erum Castaneda PA-C [address] [place] [address] [place] [address] Referral ID Status Reason Start Date Expiration Date V isits Requested Visits Authorized [id number] Closed Auto-Generate d Referral 01/07/2024 05/30/2024 1 1 [facility] for referral (narrative)* Diagnostic Procedure Only (Urgent) - Closed Specialty Diagnoses / Procedures Referred By Contac t Referred To Contact XR IMAGING Diagnoses Acute bilateral low back pain without sciatica Procedures XR LUMBAR LIMITED 2V AP/LAT RADEX SPINE LUMBOSACRAL 2/3 VIEWS Karol Hope APRN.[employer] [address] [place] [address] [place] [address] Referral ID Status Reason Start Date Expiration Date V isits Requested Visits Authorized [id number] Closed Auto-Generate d Referral 04/03/2023 05/02/2024 1 1 * Diagnostic Procedure Only (Urgent) - Closed Specialty Diagnoses / Procedures Referred By Contac t Referred To Contact XR IMAGING Diagnoses Acute bilateral low back pain without sciatica Procedures XR THORACIC LIMITED 2V AP/LAT RADEX SPINE THORACIC 2 VIEWS Karol Hope APRN.[employer] [place] [address] [place] [address] [place] [address] Referral ID Status Reason Start Date Expiration Date V isits Requested Visits Authorized [id number] Closed Auto-Generate d Referral 04/03/2023 05/02/2024 1 1 [facility] for referral (narrative)No reason for referral information availableWAdams [facility] Work Phone: Reason for visit Narrative* Diagnostic Procedure Only (Routine) - Closed Specialty Diagnoses / Procedures Referred By Contac t Referred To Contact XR IMAGING Diagnoses Closed displaced fracture of seventh cervical vertebra with routine healing, unspecified fracture morphology, subsequent encounter Procedures XR CERV GENERAL 2V AP/LAT RADEX SPINE CERVICAL 2 OR 3 VIEWS Medina Treviño, KYLAH [address] [place] [address] Xr Imaging Referral ID Status Reason Start Date Expiration Date V isits Requested Visits Authorized [id number] Closed Auto-Generate d Referral 07/08/2022 08/07/2023 1 1 [facility] for visit Narrative* Diagnostic Procedure Only (Routine) - Closed Specialty Diagnoses / Procedures Referred By Contac t Referred To Contact XR IMAGING Diagnoses Closed fracture of first thoracic vertebra with routine healing, unspecified fracture morphology, subsequent encounter Procedures XR THORACIC LIMITED 2V AP/LAT RADEX SPINE THORACIC 2 VIEWS Leah Blair, INJECTION MOLDING TECHNICIAN.[employer] [address] [place] [address] Xr Imaging Referral ID Status Reason Start Date Expiration Date V isits Requested Visits Authorized [id number] Closed Auto-Generate d Referral 07/17/2022 08/16/2023 1 1 [facility] for visit Narrative* Diagnostic Procedure Only (Routine) - Closed Specialty Diagnoses / Procedures Referred By Contac t Referred To Contact XR IMAGING Diagnoses Spinal stenosis in cervical region Procedures XR CERV OTHER 4V AP/LAT/FLX/EXT RADEX SPINE CERVICAL 4 OR 5 VIEWS Ivania Estrada I, [address] [place] [address] Xr Imaging Referral ID Status Reason Start Date Expiration Date V isits Requested Visits Authorized [id number] Closed Auto-Generate d Referral 10/12/2022 11/11/2023 1 1 [facility] for visit Narrative* Diagnostic Procedure Only (Urgent) - Closed Specialty Diagnoses / Procedures Referred By Contac t Referred To Contact XR IMAGING Diagnoses Acute bilateral low back pain without sciatica Procedures XR LUMBAR LIMITED 2V AP/LAT RADEX SPINE LUMBOSACRAL 2/3 VIEWS Karol Hope, INJECTION MOLDING TECHNICIAN.[employer] [address] [place] [address] [place] [address] Referral ID Status Reason Start Date Expiration Date V isits Requested Visits Authorized [id number] Closed Auto-Generate d Referral 04/03/2023 05/02/2024 1 1 [facility] for visit Narrative* Diagnostic Procedure Only (Routine) - Closed Specialty Diagnoses / Procedures Referred By Contac t Referred To Contact XR IMAGING Diagnoses Fall, initial encounter Rib pain Procedures XR RIBS/CHEST 3V AP RIB/OBLS/CXR RIGHT RADEX RIBS UNI W/POSTEROANT CH MINIMUM 3 VIEWS Erum Castaneda PA-C [address] [place] [address] Phone: tel: fax: [place] [id number] Referral ID Status Reason Start Date Expiration Date V isits Requested Visits Authorized [id number] Closed Auto-Generate d Referral 01/18/2025 02/17/2026 1 1 [facility] Reason for Referral Specialty Diagnoses / Procedures Referred By Contac t Referred To Contact Nephrology Diagnoses Hyponatremia Renal insufficiency Procedures CONSULT TO NEPHROLOGY OFFICE/OUTPATIENT [facility] [place] [facility] MDM 60-74 MINUTES Fredrick Feliciano MD [address] [place] [address] Referral ID Status Reason Start Date Expiration Date Visits Requested Visits Authorized [id number] Pending Review PCP Requested Referral 12/03/2021 12/03/2022 1 1 Specialty Diagnoses / Procedures Referred By Contac t Referred To Contact CT IMAGING Diagnoses Closed fracture of first thoracic vertebra with routine healing, unspecified fracture morphology, subsequent encounter Procedures CT THORACIC SPINE WO IVCON CT THORACIC SPINE W/O CONTRAST MATERIAL Leah Blair, INJECTION MOLDING TECHNICIAN.[employer] [address] [place] [address] Ct Imaging Referral ID Status Reason Start Date Expiration Date Visits Requested Visits Authorized [id number] Authorized Auto-Generat ed Referral 08/18/2022 09/17/2023 1 1 Specialty Diagnoses / Procedures Referred By Contac t Referred To Contact CT IMAGING Diagnoses Closed displaced fracture of seventh cervical vertebra with routine healing, unspecified fracture morphology, subsequent encounter Spinal stenosis in cervical region Procedures CT CERVICAL SPINE WO IVCON CT CERVICAL SPINE W/O CONTRAST MATERIAL Leah Blair, INJECTION MOLDING TECHNICIAN.[employer] [address] [place] [address] Ct Imaging Referral ID Status Reason Start Date Expiration Date Visits Requested Visits Authorized [id number] Authorized Auto-Generat ed Referral 08/18/2022 09/17/2023 1 1 Referral ID Status Reason Start Date Expiration Date V isits Requested Visits Authorized [id number] Closed Auto-Generate d Referral 08/18/2022 09/17/2023 1 1 Referral ID Status Reason Start Date Expiration Date V isits Requested Visits Authorized [id number] Closed Auto-Generate d Referral 08/18/2022 09/17/2023 1 1 Specialty Diagnoses / Procedures Referred By Contac t Referred To Contact Vascular Surgery Diagnoses PVD (peripheral vascular disease) (HCC) Procedures CONSULT TO VASCULAR SURGERY OFFICE/OUTPATIENT [facility] [place] [facility] MDM 60-74 MINUTES Fredrick Feliciano MD [address] [place] [address] Referral ID Status Reason Start Date Expiration Date Visits Requested Visits Authorized [id number] Pending Review PCP Requested Referral 01/01/2023 01/01/2024 1 1 Specialty Diagnoses / Procedures Referred By Contac t Referred To Contact Karol Hope APRN.[employer] [address] [place] [address] Referral ID Status Reason Start Date Expiration Date V isits Requested Visits Authorized [id number] Pending Review 1 1 Specialty Diagnoses / Procedures Referred By Contac t Referred To Contact XR IMAGING Diagnoses Acute bilateral low back pain without sciatica Procedures XR LUMBAR LIMITED 2V AP/LAT RADEX SPINE LUMBOSACRAL 2/3 VIEWS Karol Hope APRN.[employer] [address] [place] [address] [place] [address] Referral ID Status Reason Start Date Expiration Date Visits Requested Visits Authorized [id number] Pending Review Auto-Generat ed Referral 04/03/2023 05/02/2024 1 1 Specialty Diagnoses / Procedures Referred By Contac t Referred To Contact XR IMAGING Diagnoses Acute bilateral low back pain without sciatica Procedures XR THORACIC LIMITED 2V AP/LAT RADEX SPINE THORACIC 2 VIEWS Karol Hope APRN.[employer] [address] [place] [address] [place] [address] Referral ID Status Reason Start Date Expiration Date Visits Requested Visits Authorized [id number] Pending Review Auto-Generat ed Referral 04/03/2023 05/02/2024 1 1 Specialty Diagnoses / Procedures Referred By Contac t Referred To Contact CT IMAGING Diagnoses Alcohol abuse Bilateral leg edema Diminished pulses in lower extremity Ex-smoker Procedures CTA ABD/PEL LOWER EXTREM WO/W IVCON CTA ABDL AORTA&BI ILIOFEM W/CONTRAST&POSTP Fredrick eFliciano MD [address] [place] [address] [place] [address] Referral ID Status Reason Start Date Expiration Date V isits Requested Visits Authorized [id number] Closed Auto-Generate d Referral 12/16/2022 01/15/2024 1 1 Specialty Diagnoses / Procedures Referred By Leticia t Referred To Contact Dermatology Diagnoses Abnormal skin growth Procedures CONSULT TO DERMATOLOGY Erum Castaneda PA-C [address] [place] [address] Referral ID Status Reason Start Date Expiration Date Visits Requested Visits Authorized [id number] Ref Not Required PCP Requested Referral 12/27/2023 [...] Activated Date Inactivated Comments 07/11/2022 1:49 PM Advance Directive Response Recorded Date/ Time Do you have a Healthcare Power of Supervisor Cell Room? No January 20, 2025 10:05am Summary Purpose Family History No Family History Records FoundNo Family History Records FoundNo Family History Records Found Chief Complaint and Reason for Visit Chief Complaint Admit Date general illness January 20, 2025 9: 40am Additional Source Comments Source Comments (unrecognize d section and content) In the event this informatio n is protected by the Federal Confidentiality of Alcohol and Drug Abuse Patient Records regulations: The Federal rules restrict any use of the information to criminally investigate or prosecute any alcohol or drug abuse patient.[facility] CenterIn the event this information is protected by the Federal Confidentiality of Alcohol and Drug Abuse Patient Records regulations: The Federal rules restrict any use of the information to criminally investigate or prosecute any alcohol or drug abuse patient.[facility] CenterIn the event this information is protected by the Federal Confidentiality of Alcohol and Drug Abuse Patient Records regulations: The Federal rules restrict any use of the information to criminally investigate or prosecute any alcohol or drug abuse patient.[facility] CenterIn the event this information is protected by the Federal Confidentiality of Alcohol and Drug Abuse Patient Records regulations: The Federal rules restrict any use of the information to criminally investigate or prosecute any alcohol or drug abuse patient.[facility] CenterIn the event this information is protected by the Federal Confidentiality of Alcohol and Drug Abuse Patient Records regulations: The Federal rules restrict any use of the information to criminally investigate or prosecute any alcohol or drug abuse patient.[facility] CenterIn the event this information is protected by the Federal Confidentiality of Alcohol and Drug Abuse Patient Records regulations: The Federal rules restrict any use of the information to criminally investigate or prosecute any alcohol or drug abuse patient.[facility] CenterIn the event this information is protected by the Federal Confidentiality of Alcohol and Drug Abuse Patient Records regulations: The Federal rules restrict any use of the information to criminally investigate or prosecute any alcohol or drug abuse patient.[facility] CenterIn the event this information is protected by the Federal Confidentiality of Alcohol and Drug Abuse Patient Records regulations: The Federal rules restrict any use of the information to criminally investigate or prosecute any alcohol or drug abuse patient.[facility] CenterIn the event this information is protected by the Federal Confidentiality of Alcohol and Drug Abuse Patient Records regulations: The Federal rules restrict any use of the information to criminally investigate or prosecute any alcohol or drug abuse patient.[facility] CenterIn the event this information is protected by the Federal Confidentiality of Alcohol and Drug Abuse Patient Records regulations: The Federal rules restrict any use of the information to criminally investigate or prosecute any alcohol or drug abuse patient.[facility] CenterIn the event this information is protected by the Federal Confidentiality of Alcohol and Drug Abuse Patient Records regulations: The Federal rules restrict any use of the information to criminally investigate or prosecute any alcohol or drug abuse patient.[facility] CenterIn the event this information is protected by the Federal Confidentiality of Alcohol and Drug Abuse Patient Records regulations: The Federal rules restrict any use of the information to criminally investigate or prosecute any alcohol or drug abuse patient.[facility] CenterIn the event this information is protected by the Federal Confidentiality of Alcohol and Drug Abuse Patient Records regulations: The Federal rules restrict any use of the information to criminally investigate or prosecute any alcohol or drug abuse patient.[facility] CenterIn the event this information is protected by the Federal Confidentiality of Alcohol and Drug Abuse Patient Records regulations: The Federal rules restrict any use of the information to criminally investigate or prosecute any alcohol or drug abuse patient.[facility] CenterIn the event this information is protected by the Federal Confidentiality of Alcohol and Drug Abuse Patient Records regulations: The Federal rules restrict any use of the information to criminally investigate or prosecute any alcohol or drug abuse patient.[facility] CenterIn the event this information is protected by the Federal Confidentiality of Alcohol and Drug Abuse Patient Records regulations: The Federal rules restrict any use of the information to criminally investigate or prosecute any alcohol or drug abuse patient.[facility]In the event this information is protected by the Federal Confidentiality of Alcohol and Drug Abuse Patient Records regulations: The Federal rules restrict any use of the information to criminally investigate or prosecute any alcohol or drug abuse patient.[facility] CenterIn the event this information is protected by the Federal Confidentiality of Alcohol and Drug Abuse Patient Records regulations: The Federal rules restrict any use of the information to criminally investigate or prosecute any alcohol or drug abuse patient.[facility] CenterIn the event this information is protected by the Federal Confidentiality of Alcohol and Drug Abuse Patient Records regulations: The Federal rules restrict any use of the information to criminally investigate or prosecute any alcohol or drug abuse patient.[facility] CenterIn the event this information is protected by the Federal Confidentiality of Alcohol and Drug Abuse Patient Records regulations: The Federal rules restrict any use of the information to criminally investigate or prosecute any alcohol or drug abuse patient.[facility] CenterIn the event this information is protected by the Federal Confidentiality of Alcohol and Drug Abuse Patient Records regulations: The Federal rules restrict any use of the information to criminally investigate or prosecute any alcohol or drug abuse patient.[facility] CenterIn the event this information is protected by the Federal Confidentiality of Alcohol and Drug Abuse Patient Records regulations: The Federal rules restrict any use of the information to criminally investigate or prosecute any alcohol or drug abuse patient.[facility] CenterIn the event this information is protected by the Federal Confidentiality of Alcohol and Drug Abuse Patient Records regulations: The Federal rules restrict any use of the information to criminally investigate or prosecute any alcohol or drug abuse patient.[facility] CenterIn the event this information is protected by the Federal Confidentiality of Alcohol and Drug Abuse Patient Records regulations: The Federal rules restrict any use of the information to criminally investigate or prosecute any alcohol or drug abuse patient.[facility] CenterIn the event this information is protected by the Federal Confidentiality of Alcohol and Drug Abuse Patient Records regulations: The Federal rules restrict any use of the information to criminally investigate or prosecute any alcohol or drug abuse patient.[facility] CenterIn the event this information is protected by the Federal Confidentiality of Alcohol and Drug Abuse Patient Records regulations: The Federal rules restrict any use of the information to criminally investigate or prosecute any alcohol or drug abuse patient.[facility] CenterIn the event this information is protected by the Federal Confidentiality of Alcohol and Drug Abuse Patient Records regulations: The Federal rules restrict any use of the information to criminally investigate or prosecute any alcohol or drug abuse patient.[facility] CenterIn the event this information is protected by the Federal Confidentiality of Alcohol and Drug Abuse Patient Records regulations: The Federal rules restrict any use of the information to criminally investigate or prosecute any alcohol or drug abuse patient.[facility] CenterIn the event this information is protected by the Federal Confidentiality of Alcohol and Drug Abuse Patient Records regulations: The Federal rules restrict any use of the information to criminally investigate or prosecute any alcohol or drug abuse patient.[facility] CenterIn the event this information is protected by the Federal Confidentiality of Alcohol and Drug Abuse Patient Records regulations: The Federal rules restrict any use of the information to criminally investigate or prosecute any alcohol or drug abuse patient.[facility] CenterIn the event this information is protected by the Federal Confidentiality of Alcohol and Drug Abuse Patient Records regulations: The Federal rules restrict any use of the information to criminally investigate or prosecute any alcohol or drug abuse patient.[facility] CenterIn the event this information is protected by the Federal Confidentiality of Alcohol and Drug Abuse Patient Records regulations: The Federal rules restrict any use of the information to criminally investigate or prosecute any alcohol or drug abuse patient.[facility] CenterIn the event this information is protected by the Federal Confidentiality of Alcohol and Drug Abuse Patient Records regulations: The Federal rules restrict any use of the information to criminally investigate or prosecute any alcohol or drug abuse patient.[facility] CenterIn the event this information is protected by the Federal Confidentiality of Alcohol and Drug Abuse Patient Records regulations: The Federal rules restrict any use of the information to criminally investigate or prosecute any alcohol or drug abuse patient.[facility] CenterIn the event this information is protected by the Federal Confidentiality of Alcohol and Drug Abuse Patient Records regulations: The Federal rules restrict any use of the information to criminally investigate or prosecute any alcohol or drug abuse patient.[facility] CenterIn the event this information is protected by the Federal Confidentiality of Alcohol and Drug Abuse Patient Records regulations: The Federal rules restrict any use of the information to criminally investigate or prosecute any alcohol or drug abuse patient.[facility] CenterIn the event this information is protected by the Federal Confidentiality of Alcohol and Drug Abuse Patient Records regulations: The Federal rules restrict any use of the information to criminally investigate or prosecute any alcohol or drug abuse patient.[facility] CenterIn the event this information is protected by the Federal Confidentiality of Alcohol and Drug Abuse Patient Records regulations: The Federal rules restrict any use of the information to criminally investigate or prosecute any alcohol or drug abuse patient.[facility] CenterIn the event this information is protected by the Federal Confidentiality of Alcohol and Drug Abuse Patient Records regulations: The Federal rules restrict any use of the information to criminally investigate or prosecute any alcohol or drug abuse patient.[facility] CenterIn the event this information is protected by the Federal Confidentiality of Alcohol and Drug Abuse Patient Records regulations: The Federal rules restrict any use of the information to criminally investigate or prosecute any alcohol or drug abuse patient.[facility] CenterIn the event this information is protected by the Federal Confidentiality of Alcohol and Drug Abuse Patient Records regulations: The Federal rules restrict any use of the information to criminally investigate or prosecute any alcohol or drug abuse patient.[facility] CenterIn the event this information is protected by the Federal Confidentiality of Alcohol and Drug Abuse Patient Records regulations: The Federal rules restrict any use of the information to criminally investigate or prosecute any alcohol or drug abuse patient.[facility] CenterIn the event this information is protected by the Federal Confidentiality of Alcohol and Drug Abuse Patient Records regulations: The Federal rules restrict any use of the information to criminally investigate or prosecute any alcohol or drug abuse patient.[facility] CenterIn the event this information is protected by the Federal Confidentiality of Alcohol and Drug Abuse Patient Records regulations: The Federal rules restrict any use of the information to criminally investigate or prosecute any alcohol or drug abuse patient.[facility] CenterIn the event this information is protected by the Federal Confidentiality of Alcohol and Drug Abuse Patient Records regulations: The Federal rules restrict any use of the information to criminally investigate or prosecute any alcohol or drug abuse patient.[facility] CenterIn the event this information is protected by the Federal Confidentiality of Alcohol and Drug Abuse Patient Records regulations: The Federal rules restrict any use of the information to criminally investigate or prosecute any alcohol or drug abuse patient.[facility] CenterIn the event this information is protected by the Federal Confidentiality of Alcohol and Drug Abuse Patient Records regulations: The Federal rules restrict any use of the information to criminally investigate or prosecute any alcohol or drug abuse patient.[facility] CenterIn the event this information is protected by the Federal Confidentiality of Alcohol and Drug Abuse Patient Records regulations: The Federal rules restrict any use of the information to criminally investigate or prosecute any alcohol or drug abuse patient.[facility] CenterIn the event this information is protected by the Federal Confidentiality of Alcohol and Drug Abuse Patient Records regulations: The Federal rules restrict any use of the information to criminally investigate or prosecute any alcohol or drug abuse patient.[facility] CenterIn the event this information is protected by the Federal Confidentiality of Alcohol and Drug Abuse Patient Records regulations: The Federal rules restrict any use of the information to criminally investigate or prosecute any alcohol or drug abuse patient.[facility] CenterIn the event this information is protected by the Federal Confidentiality of Alcohol and Drug Abuse Patient Records regulations: The Federal rules restrict any use of the information to criminally investigate or prosecute any alcohol or drug abuse patient.[facility] CenterIn the event this information is protected by the Federal Confidentiality of Alcohol and Drug Abuse Patient Records regulations: The Federal rules restrict any use of the information to criminally investigate or prosecute any alcohol or drug abuse patient.[facility] CenterIn the event this information is protected by the Federal Confidentiality of Alcohol and Drug Abuse Patient Records regulations: The Federal rules restrict any use of the information to criminally investigate or prosecute any alcohol or drug abuse patient.[facility] CenterIn the event this information is protected by the Federal Confidentiality of Alcohol and Drug Abuse Patient Records regulations: The Federal rules restrict any use of the information to criminally investigate or prosecute any alcohol or drug abuse patient.[facility] CenterIn the event this information is protected by the Federal Confidentiality of Alcohol and Drug Abuse Patient Records regulations: The Federal rules restrict any use of the information to criminally investigate or prosecute any alcohol or drug abuse patient.[facility] CenterIn the event this information is protected by the Federal Confidentiality of Alcohol and Drug Abuse Patient Records regulations: The Federal rules restrict any use of the information to criminally investigate or prosecute any alcohol or drug abuse patient.[facility] CenterIn the event this information is protected by the Federal Confidentiality of Alcohol and Drug Abuse Patient Records regulations: The Federal rules restrict any use of the information to criminally investigate or prosecute any alcohol or drug abuse patient.[facility] CenterIn the event this information is protected by the Federal Confidentiality of Alcohol and Drug Abuse Patient Records regulations: The Federal rules restrict any use of the information to criminally investigate or prosecute any alcohol or drug abuse patient.[facility] Reason for Visit (unrecogniz ed section and content) Reason Comments Results Reason Comments Patient Update Reason Onset Date Comments Refill Request 06/03/2022 Reason Comments Results Reason Comments Appointment Reason Onset Date Comments Transition Of Care 07/09/2022 Discharged 2. 8.23 initial outreach Reason Onset Date Comments Refill Request 07/15/2022 Reason Comments Medication Problem Specialty Diagnoses / Procedures Referred By Contac t Referred To Contact [facility] [address] [place] [address] Referral ID Status Reason Start Date Expiration Date Visits Re quested Visits Authorized [id number] 1 1 Reason Comments Transition Of Care [...] Patient Specialty Diagnoses / Procedures Referred By Contac t Referred To Contact CT IMAGING Diagnoses Closed fracture of first thoracic vertebra with routine healing, unspecified fracture morphology, subsequent encounter Procedures CT THORACIC SPINE WO IVCON CT THORACIC SPINE W/O CONTRAST MATERIAL Leah Blair, INJECTION MOLDING TECHNICIAN.[employer] [address] [place] [address] Ct Imaging Referral ID Status Reason Start Date Expiration Date V isits Requested Visits Authorized [id number] Closed Auto-Generate d Referral 08/18/2022 09/17/2023 1 [...] AORTA&BI ILIOFEM W/CONTRAST&POSTP Fredrick Feliciano MD [address] [place] [address] [place] [address] Referral ID Status Reason Start Date Expiration Date V isits Requested Visits Authorized [id number] Closed Auto-Generate d Referral 12/16/2022 01/15/2024 1 1 Reason Onset Date Comments Population Health Navigation Outreach 07/19/2023 [place] Care Gap Reason Comments Refill Request Reason Comments Medicare Wellness Exam Reason Comments Radiology US Specialty Diagnoses / Procedures Referred By Leticia t Referred To Contact US IMAGING Diagnoses Alkaline phosphatase elevation Procedures US ABD RIGHT UPPER QUADRANT US ABDOMINAL REAL TIME W/IMAGE LIMITED Erum Castaneda PA-C [address] [place] [address] [place] [address] Referral ID Status Reason Start Date Expiration Date V isits Requested Visits Authorized [id number] Closed Auto-Generate d Referral 01/07/2024 05/30/2024 1 [...] pain Reason Onset Date Comments Results 01/19/2025 Reason Comments ER F/U Reason Onset Date Comments Results 01/24/2025 Reason Comments Follow Up Blood pressure Care Teams (unrecognized sec tion and content) Critical Care Registered Nurse Relationship Specialty Start Date End Date Fredrick Feliciano MD [address] [place] [address] PCP - General Family Practice 04/26/18 Critical Care Registered Nurse Relationship Specialty Start Date End Date Fredrick Feliciano MD [address] [place] [address] PCP - General Family Medicine 04/26/18 Critical Care Registered Nurse Relationship Specialty Start Date End Date Fredrick Feliciano MD [address] [place] [address] PCP - General Family Medicine 04/26/18 Critical Care Registered Nurse Relationship Specialty Start Date End Date Fredrick Feliciano MD [address] [place] [address] PCP - General Family Medicine 04/26/18 Critical Care Registered Nurse Relationship Specialty Start Date End Date Fredrick Feliciano MD [address] [place] [address] PCP - General Family Medicine 04/26/18 Kodak Hurst PA-C [address] [place] [address] Referring General Surgery 07/08/22 Critical Care Registered Nurse Relationship Specialty Start Date End Date Fredrick Feliciano MD [address] [facility] [place] [address] PCP - General Family Medicine 04/26/18 Kodak Hurst PA-C [address] [facility] [address] Referring General Surgery 07/08/22 Fredrick Feliciano MD [address] [place] [address] Home Care Provider Family Medicine 07/09/22 Amie Nixon, PT [address] [place] [address] Shipping Supervisor Post Acute Care 07/09/22 Critical Care Registered Nurse Relationship Specialty Start Date End Date Fredrick Feliciano MD [address] [place] [address] PCP - General Family Medicine 04/26/18 Kodak Hurst PA-C 1 [facility] [place] [address] Referring General Surgery 07/08/22 Fredrick Feliciano MD [address] [facility] [place] [address] Home Care Provider Family Medicine 07/09/22 Amie Nixon, PT [address] [place] [address] Shipping Supervisor Post Acute Care 07/09/22 Critical Care Registered Nurse Relationship Specialty Start Date End Date Fredrick Feliciano MD [address] [place] [address] PCP - General Family Medicine 04/26/18 Kodak Hurst PA-C 1 [facility] [address] Referring General Surgery 07/08/22 Fredrick Feliciano MD [address] [place] [address] Home Care Provider Family Medicine 07/09/22 Amie Nixon, PT [address] [place] [address] Shipping Supervisor Post Acute Care 07/09/22 Critical Care Registered Nurse Relationship Specialty Start Date End Date Fredrick Feliciano MD [address] [place] [address] PCP - General Family Medicine 04/26/18 Kodak Hurst PA-C 1 [facility] [place] [address] Referring General Surgery 07/08/22 Fredrick Feliciano MD [address] [place] [address] Home Care Provider Family Medicine 07/09/22 Amie Nixon, PT [address] [place] [address] Shipping Supervisor Post Acute Care 07/09/22 Critical Care Registered Nurse Relationship Specialty Start Date End Date Fredrick Feliciano MD [address] [place] [address] PCP - General Family Medicine 04/26/18 Kodak Hurst PA-C 1 [facility] [place] [address] Referring General Surgery 07/08/22 Fredrick Feliciano MD [address] [place] [address] Home Care Provider Family Medicine 07/09/22 Amie Nixon, PT [address] [place] [address] Shipping Supervisor Post Acute Care 07/09/22 Critical Care Registered Nurse Relationship Specialty Start Date End Date Fredrick Feliciano MD [address] [place] [address] PCP - General Family Medicine 04/26/18 Kodak Hurst PA-C [address] [place] [address] Referring General Surgery 07/08/22 Fredrick Feliciano MD [address] [place] [address] Home Care Provider Family Medicine 07/09/22 Amie Nioxn, PT [address] [place] [address] Shipping Supervisor Post Acute Care 07/09/22 Critical Care Registered Nurse Relationship Specialty Start Date End Date Fredrick Feliciano MD [address] [place] [address] PCP - General Family Medicine 04/26/18 Kodka Hurst, PA-C [address] [place] [address] Referring General Surgery 07/08/22 Fredrick Feliciano MD [address] [place] [address] Home Care Provider Family Medicine 07/09/22 Amie Nixon, PT [address] [place] [address] Shipping Supervisor Post Acute Care 07/09/22 Critical Care Registered Nurse Relationship Specialty Start Date End Date Fredrick Feliciano MD [address] [place] [address] PCP - General Family Medicine 04/26/18 Kodak Hurst PA-C [address] [facility] [place] [address] Referring General Surgery 07/08/22 Fredrick Feliciano MD [address] [place] [address] Home Care Provider Family Medicine 07/09/22 Amie Nixon, PT [address] [place] [address] Shipping Supervisor Post Acute Care 07/09/22 Critical Care Registered Nurse Relationship Specialty Start Date End Date Fredrick Feliciano MD [address] [place] [address] PCP - General Family Medicine 04/26/18 Kodak Hurst PA-C 1 [facility] [place] [address] Referring General Surgery 07/08/22 Fredrick Feliciano MD [address] [place] [address] Home Care Provider Family Medicine 07/09/22 Amie Nixon, PT [address] [place] [address] Shipping Supervisor Post Acute Care 07/09/22 Critical Care Registered Nurse Relationship Specialty Start Date End Date rFedrick Feliciano MD [address] [place] [address] PCP - General Family Medicine 04/26/18 Kodak Hurst PA-C 1 [facility] [place] [address] Referring General Surgery 07/08/22 Fredrick Feliciano MD [address] [place] [address] Home Care Provider Family Medicine 07/09/22 Amie Nixon, PT [address] [place] [address] Shipping Supervisor Post Acute Care 07/09/22 Critical Care Registered Nurse Relationship Specialty Start Date End Date Fredrick Feliciano MD [address] [place] [address] PCP - General Family Medicine 04/26/18 Kodak Hurst PA-C 1 [place] [address] Referring General Surgery 07/08/22 Fredrick Feliciano MD [address] [place] [address] Home Care Provider Family Medicine 07/09/22 Amie Nixon, PT [address] [place] [address] Shipping Supervisor Post Acute Care 07/09/22 Critical Care Registered Nurse Relationship Specialty Start Date End Date Fredrick Feliciano MD [address] [place] [address] PCP - General Family Medicine 04/26/18 Kodak Hurst PA-C [address] [place] [address] Referring General Surgery 07/08/22 Fredrick Feliciano MD [address] [place] [address] Home Care Provider Family Medicine 07/09/22 Amie Nixon, PT [address] [place] [address] Shipping Supervisor Post Acute Care 07/09/22 Critical Care Registered Nurse Relationship Specialty Start Date End Date Fredrick Feliciano MD [address] [place] [address] PCP - General Family Medicine 04/26/18 Kodak Hurst PA-C [address] [facility] [place] [address] Referring General Surgery 07/08/22 Fredrick Feliciano MD [address] [place] [address] Home Care Provider Family Medicine 07/09/22 Amie Nixon, PT [address] [place] [address] Shipping Supervisor Post Acute Care 07/09/22 Critical Care Registered Nurse Relationship Specialty Start Date End Date Fredrick Feliciano MD [address] [place] [address] PCP - General Family Medicine 04/26/18 Kodak Hurst PA-C 1 [facility] [place] [address] Referring General Surgery 07/08/22 Fredrick Feliciano MD [address] [place] [address] Home Care Provider Family Medicine 07/09/22 Amie Nixon, PT [address] [place] [address] Shipping Supervisor Post Acute Care 07/09/22 Critical Care Registered Nurse Relationship Specialty Start Date End Date Fredrick Feliciano MD [address] [place] [address] PCP - General Family Medicine 04/26/18 Kodak Hurst PA-C [address] [facility] [place] [address] Referring General Surgery 07/08/22 Fredrick Feliciano MD [address] [place] [address] Home Care Provider Family Medicine 07/09/22 Amie Nixon, PT [address] [place] [address] Shipping Supervisor Post Acute Care 07/09/22 Critical Care Registered Nurse Relationship Specialty Start Date End Date Fredrick Feliciano MD [address] [place] [address] PCP - General Family Medicine 04/26/18 Koadk Hurst [facility] [address] [place], [place] [phone] Referring General Surgery 07/08/22 Fredrick Feliciano MD [address] [place] [address] Home Care Provider Family Medicine 07/09/22 Amie Nixon, PT [address] [place] [address] Shipping Supervisor Post Acute Care 07/09/22 Critical Care Registered Nurse Relationship Specialty Start Date End Date Fredrick Feliciano MD [address] [place] [address] PCP - General Family Medicine 04/26/18 Kodak Hurst PA-C [address] [facility] [place] [id number] Referring General Surgery 07/08/22 Fredrick Feliciano MD [address] [place] [address] Home Care Provider Family Medicine 07/09/22 Critical Care Registered Nurse Relationship Specialty Start Date End Date Fredrick Feliciano MD [address] [place] [address] PCP - General Family Medicine 04/26/18 Kodak Hurst PA-C [address] [place] [address] Referring General Surgery 07/08/22 Fredrick Feliciano MD [address] [place] [address] Home Care Provider Family Medicine 07/09/22 Critical Care Registered Nurse Relationship Specialty Start Date End Date Fredrick Feliciano MD [address] [place] [address] PCP - General Family Medicine 04/26/18 Kodak Hurst PA-C 1 [place] [address] Referring General Surgery 07/08/22 Fredrick Feliciano MD [address] [place] [address] Home Care Provider Family Medicine 07/09/22 Critical Care Registered Nurse Relationship Specialty Start Date End Date Fredrick Feliciano MD [address] [place] [address] PCP - General Family Medicine 04/26/18 Kodak Hurst PA-C [address] [facility] [place], [place] [phone] Referring General Surgery 07/08/22 Fredrick Feliciano MD [address] [place] [address] Home Care Provider Family Medicine 07/09/22 Critical Care Registered Nurse Relationship Specialty Start Date End Date Fredrick Feliciano MD [address] [place] [address] PCP - General Family Medicine 04/26/18 Kodak Hurst PA-C [address] [place] [address] Referring General Surgery 07/08/22 Fredrick Feliciano MD [address] [place] [address] Home Care Provider Family Medicine 07/09/22 Critical Care Registered Nurse Relationship Specialty Start Date End Date Fredrick Feliciano MD [address] [place] [address] PCP - General Family Medicine 04/26/18 Kodak Hurst [facility] [address] [place] [address] Referring General Surgery 07/08/22 Fredrick Feliciano MD [address] [place] [address] Home Care Provider Family Medicine 07/09/22 Critical Care Registered Nurse Relationship Specialty Start Date End Date Fredrick Feliciano MD [address] [place] [address] PCP - General Family Medicine 04/26/18 Kodak Hurst PA-C [address] [place] [address] Referring General Surgery 07/08/22 Fredrick Feliciano MD [address] [place] [address] Home Care Provider Family Medicine 07/09/22 Critical Care Registered Nurse Relationship Specialty Start Date End Date Fredrick Feliciano MD [address] [place] [address] PCP - General Family Medicine 04/26/18 Kodak Hurst PA-C [address] [facility] [place], [place] [phone] Referring General Surgery 07/08/22 Fredrick Feliciano MD [address] [place] [address] Home Care Provider Family Medicine 07/09/22 Critical Care Registered Nurse Relationship Specialty Start Date End Date Fredrick Feliciano MD [address] [place] [address] PCP - General Family Medicine 04/26/18 Kodak Hurst PA-C [address] [facility] [place], [place] [phone] Referring General Surgery 07/08/22 Fredrick Feliciano MD [address] [place] [address] Home Care Provider Family Medicine 07/09/22 Critical Care Registered Nurse Relationship Specialty Start Date End Date Fredrick Feliciano MD [address] [place] [address] PCP - General Family Medicine 04/26/18 Kodak Hurst PA-C [address] [facility] [place], [place] [phone] Referring General Surgery 07/08/22 Fredrick Feliciano MD [address] [place] [address] Home Care Provider Family Medicine 07/09/22 Critical Care Registered Nurse Relationship Specialty Start Date End Date Fredrick Feliciano MD [address] [place] [address] PCP - General Family Medicine 04/26/18 Kodak Hurst PA-C 1 [place], [place] [id number] Referring General Surgery 07/08/22 Fredrick Feliciano MD [address] [place] [address] Home Care Provider Family Medicine 07/09/22 Critical Care Registered Nurse Relationship Specialty Start Date End Date Fredrick Feliciano MD [address] [place] [address] PCP - General Family Medicine 04/26/18 Kodak Hurst PA-C 1 [place], [place] [phone] Referring General Surgery 07/08/22 Fredrick Feliciano MD [address] [place] [address] Home Care Provider Family Medicine 07/09/22 Critical Care Registered Nurse Relationship Specialty Start Date End Date Fredrick Feliciano MD [address] [place] [address] PCP - General Family Medicine 04/26/18 Kodak Hurst PA-C 1 [place], [place] [phone] Referring General Surgery 07/08/22 Fredrick Feliciano MD [address] [place] [address] Home Care Provider Family Medicine 07/09/22 Critical Care Registered Nurse Relationship Specialty Start Date End Date Fredrick Feliciano MD [address] [place], [place] 6[address]61 PCP - General Family Medicine 04/26/18 Kodak Hurst PA-C 1 [place], [place] [phone] Referring General Surgery 07/08/22 Fredrick Feliciano MD [address] [place] [address] Home Care Provider Family Medicine 07/09/22 Марина Aparicio APRN.CNP [facility] [place] [address] Biztalk Administrator Family Medicine 05/06/24 Erum Castaneda PA-C [address] [place] [address] [employer] Administrator Family Medicine 05/06/24 Critical Care Registered Nurse Relationship Specialty Start Date End Date Fredrick Feliciano MD [address] [place], [place] 271781 PCP - General Family Medicine 04/26/18 Kodak Hurst PA-C 1 [place], [place] [phone] Referring General Surgery 07/08/22 Fredrick Feliciano MD [address] [place], [place] 179731 Home Care Provider Family Medicine 07/09/22 Марина Aparicio APRN.[employer] [address] [place] [address] [employer]talk Administrator Family Medicine 05/06/24 Erum Castaneda PA-C [address] [place] [address] [employer]talk Administrator Family [facility] 05/06/24 Critical Care Registered Nurse Relationship Specialty Start Date End Date Fredrick Feliciano MD [address] [place] [address] PCP - General Family Medicine 04/26/18 Kodak Hurst PA-C [address] [place] [address] Referring General Surgery 07/08/22 Fredrick Feliciano MD [address] [place] [address] Home Care Provider Family Medicine 07/09/22 Марина Aparicio APRN.[employer] [address] [place] [address] Biztalk Administrator Family Medicine 05/06/24 Erum Castaneda PA-C [address] [place] [address] Biztalk Administrator Family Medicine 05/06/24 Critical Care Registered Nurse Relationship Specialty Start Date End Date Fredrick Feliciano MD [address] [place], [place] 0[address]31 PCP - General Family Medicine 04/26/18 Kodak Hurst PA-C [address] [place] [address] Referring General Surgery 07/08/22 Fredrick Feliciano MD [address] [place] [address] Home Care Provider Family Medicine 07/09/22 Марина Aparicio APRN.[employer] [address] [place] [address] Biztalk Administrator Family Medicine 05/06/24 Erum Castaneda PA-C [address] [place] [address] Biztalk Administrator Family Medicine 05/06/24 Critical Care Registered Nurse Relationship Specialty Start Date End Date Fredrick Feliciano MD [address] [place] [address] PCP - General Family Medicine 04/26/18 Kodak Hurst PA-C [address] [place] [address] Referring General Surgery 07/08/22 Fredrick Feliciano MD [address] [place], [place] [address] [phone] Home Care Provider Family Medicine 07/09/22 Марина Aparicio APRN.[employer] [address] [place], [place] 245208 [phone] Biztalk Administrator Family Medicine 10/30/24 Erum Castaneda PA-C [address] [facility] [place] [address] Biztalk Administrator Family Medicine 10/30/24 Critical Care Registered Nurse Relationship Specialty Start Date End Date Fredrick Feliciano MD [address] [facility] [address] PCP - General Family Medicine 04/26/18 Kodak Hurst PA-C [address] [place], [place] [phone] Referring General Surgery 07/08/22 Fredrick Feliciano MD [address] [place] [address] Home Care Provider Family Medicine 07/09/22 Марина Aparicio APRN.CNP [address] [place] [address] Biztalk Administrator Family Medicine 10/30/24 Erum Castaneda PA-C [address] [place] [address] [employer]iztalk Administrator Family [facility] 10/30/24 Critical Care Registered Nurse Relationship Specialty Start Date End Date Fredrick Feliciano MD [address] [place] [address] PCP - General Family Medicine 04/26/18 Kodak Hurst PA-C [address] [facility] [place], [place] [phone] Referring General Surgery 07/08/22 Fredrick Feliciano MD [address] [place] [address] Home Care Provider Family Medicine 07/09/22 Марина Aparicio APRN.[employer] [address] [place], [place] [address]2581 Biztalk Administrator Family Medicine 10/30/24 Erum Castaneda PA-C [address] [place], [place] [address] [employer]iztalk Administrator Family [facility] 10/30/24 Critical Care Registered Nurse Relationship Specialty Start Date End Date Fredrick Feliciano MD [facility] [place] [address] PCP - General Family Medicine 04/26/18 Kodak Hurst PA-C 1 [place], [place] [phone] Referring General Surgery 07/08/22 Fredrick Feliciano MD [facility] [place], [place] 85[address]51 Home Care Provider Family Medicine 07/09/22 Марина Aparicio APRN.[employer] [facility]0 [place], [place] 58[address] [employer]iztalk Administrator Family [facility] 10/30/24 Erum Castaneda PA-C [address] [place], [place] [id number] [employer] Administrator Family Medicine 10/30/24 Team Status: Active Member Role/Relationship Status Dates Dr. Fredrick Feliciano MD Primary Care Provider Active Team Status: Inactive Member Role/Relationship Status Dates Dr. Fredrick Feliciano MD Primary Care Provider Active Start: January 20, 2025 End: January 20, 2025 Dr. Chai Frye MD Emergency Provider Active Start: January 20, 2025 End: January 20, 2025 Critical Care Registered Nurse Relationship Specialty Start Date End Date Fredrick Feliciano MD [address] [place], [place] [address] PCP - General Family Medicine 04/26/18 Kodak Hurst PA-C [address] [facility] [place], [place] [phone] Referring General Surgery 07/08/22 Fredrick Feliciano MD [address] [place], [place] 180551 Home Care Provider Family Medicine 07/09/22 Марина Aparicio APRN.[employer] [address] [place], [place] [address] Biztalk Administrator Family Medicine 10/30/24 Erum Castaneda PA-C [address] [place] [address] [employer]iztalk Administrator Family Medicine 10/30/24 Critical Care Registered Nurse Relationship Specialty Start Date End Date Fredrick Feliciano MD [address] [place] [address] PCP - General Family Medicine 04/26/18 Kodak Hurst [facility] [address] [facility], [place] [phone] Referring General Surgery 07/08/22 Fredrick Feliciano MD [address] [place] [address] Home Care Provider Family Medicine 07/09/22 Марина Aparicio APRN.[employer] [address] [place] [address] [employer]iztalk Administrator Family Medicine 10/30/24 Erum Castaneda PA-C [address] [place] [address] [employer]iz[employer] Administrator Family Medicine 10/30/24 Critical Care Registered Nurse Relationship Specialty Start Date End Date Fredrick Feliciano MD [address] [place] [address] PCP - General Family Medicine 04/26/18 Kodak Hurst PA-C [address] [place], [place] [phone] Referring General Surgery 07/08/22 Fredrick Feliciano MD [address] [place] [address] Home Care Provider Family Medicine 07/09/22 Марина Aparicio APRN.[employer] [address] [place] [address] [employer] Administrator Family Medicine 10/30/24 Erum Castaneda PA-C [address] [place] [address] [employer] Administrator Family Medicine 10/30/24 Critical Care Registered Nurse Relationship Specialty Start Date End Date Fredrick Feliciano MD [address] [place] [address] PCP - General Family Medicine 04/26/18 Kodak Hurst PA-C 1 [place], [place] [phone] Referring General Surgery 07/08/22 Fredrick Feliciano MD [address] [place] [address] Home Care Provider Family Medicine 07/09/22 Марина Aparicio APRN.CNP [address] [place] [address] [employer]iztalk Administrator Family Medicine 10/30/24 Erum Castaneda PA-C [address] [place] [address] [employer]talk Administrator Family [facility] 10/30/24 (unrecognized sect ion and content) No Status Records FoundNo Status Records FoundNo Status Records Found INFORMATION SOURCE (unrecogn ized section and content) DATE CREATED AUTHOR 05/19/2023 [facility] DATE CREATED AUTHOR AUTHOR'S ORGANIZ ATION 01/27/2025 [facility] DATE CREATED AUTHOR AUTHOR'S ORGANIZ ATION 02/16/2025 [facility] Goals (unrecognized section and content) Goals may be documented in a n alternate section FOR RECORDS PERTAINING TO PATIENTS WHO ARE [...] BE BASED ON THE PRIMARY CLINICAL RECORDS. [employer] provides no warranty or guarantee of the accuracy or completeness of information in this document.
[2025-02-18 19:41] LABS: Immature Granulocytes Count 0.020 X10^3/uL (0.0-0.0); NRBC Flagged by Analyzer 0.3 % (0-5)
== END 2025-02-18 20:39 | disposition home or self-care (01) ==
PROVIDERS: Emergency Provider Emergency Medicine; PCP Family Medicine; Visit Provider Emergency Medicine
DX: S06.0X0A Concussion without loss of consciousness, initial encounter (principal); S01.81XA Laceration without foreign body of other part of head, initial encounter; S01.111A Laceration without foreign body of right eyelid and periocular area, initial encounter; W18.39XA Other fall on same level, initial encounter; Y92.89 Other specified places as the place of occurrence of the external cause; R55 Syncope and collapse; I10 Essential (primary) hypertension; F10.10 Alcohol abuse, uncomplicated; Y90.3 Blood alcohol level of 60-79 mg/100 ml; Z79.899 Other long term (current) drug therapy; Z87.891 Personal history of nicotine dependence; Z23 Encounter for immunization
CPT/HCPCS: 12014; 70450; 80048; 82077; 85025; 85027; 90471; 90715; 93005; 99285; A4216